=== PATIENT | male | born 1950 | race Caucasian/White ===

== ENCOUNTER 2020-11-20 08:12 | Outpatient (CLI) | payer MEDICARE, OTHER, SELFPAY ==
--- NOTE | 2020-11-20 08:17 | ECG_ITS ---
Measurements Intervals [place] Rate: 57 P: 35 WV: 212 QRS: -47 QRSD: 105 T: 6 QT: 405 QTc: 396 Interpretive Statements SINUS BRADYCARDIA WITH FIRST DEGREE AV BLOCK LEFT ANTERIOR FASCICULAR BLOCK BORDERLINE T WAVE ABNORMALITY- INFERIOR LEADS ABNORMAL ECG Electronically Signed On 11-20-2020 8:50:50 [employer] by Lavelle Torrez D.O.
[2020-11-20 08:51] LABS: Anion Gap 5 mmol/L (8-16); Blood Urea Nitrogen 12 mg/dL (9-20); Calcium 9.3 mg/dL (8.4-10.2); Carbon Dioxide 34 mmol/L (22-30); Chloride 100 mmol/L (98-107); Estimated Glomerular Filt Rate > 60; Glucose 111 mg/dL (75-110); Potassium 4.1 mmol/L (3.4-5.0); Sodium 139 mmol/L (137-145)
== END 2020-11-20 08:13 | disposition home or self-care (01) ==
LOC: ANHSURGERY 08:17
PROVIDERS: Anesthesiology; PCP Emergency Medicine; Visit Provider Urology
DX: Z01.812 Encounter for preprocedural laboratory examination (principal); C61 Malignant neoplasm of prostate; I10 Essential (primary) hypertension; E11.9 Type 2 diabetes mellitus without complications; R00.1 Bradycardia, unspecified; I44.0 Atrioventricular block, first degree; I45.2 Bifascicular block; R94.31 Abnormal electrocardiogram [ECG] [EKG]; Z51.81 Encounter for therapeutic drug level monitoring; Z79.899 Other long term (current) drug therapy
CPT/HCPCS: 36415; 80048; 87086; 93005

== ENCOUNTER 2020-11-23 01:27 | Outpatient (CLI) | payer MEDICARE, OTHER, SELFPAY ==
[2020-11-23 18:47] LABS: SARS-CoV-2 RNA PCR Negative
== END 2020-11-23 01:28 | disposition home or self-care (01) ==
LOC: ANHCOVIDDT 01:28
PROVIDERS: PCP Emergency Medicine; Visit Provider Urology
DX: Z01.812 Encounter for preprocedural laboratory examination (principal); Z20.822 Contact with and (suspected) exposure to COVID-19
CPT/HCPCS: C9803; U0003; U0005

== ENCOUNTER → 2020-11-30 00:44 | Outpatient (CLI) | payer MEDICARE, OTHER, SELFPAY ==
[2020-11-30 20:38] LABS: SARS-CoV-2 RNA PCR Negative
== END ==
PROVIDERS: PCP Emergency Medicine; Visit Provider Urology
DX: Z01.812 Encounter for preprocedural laboratory examination (principal); Z20.822 Contact with and (suspected) exposure to COVID-19
CPT/HCPCS: C9803; U0003; U0005

== ENCOUNTER 2020-12-03 01:30 | Day surgery (SDC) | payer MEDICARE, OTHER, SELFPAY ==
[2020-11-19 09:23] VITALS: BMI 31.6
[2020-11-26 08:20] VITALS: BMI 31.6
--- NOTE | 2020-12-02 11:06 | WPDANESEPPF ---
Anes - Initial Pre Proc Eval Procedure: Operation Date: 12/03/20 13:00 Proposed Procedures p Insertion SpaceOAR Hydrogel System - Monty Greer MD Date/Time: 12/02/20 11:06 Surgeon: Monty Greer MD Pre Op Diagnosis: Prostate Cancer Patient Data Age: 70 Gender: M Height: 1.8 m Weight: 103 kg Allergies Allergy/AdvReac Type Severity Reaction Status Date / Time No Known Allergies Allergy Mild Unverified 11/26/20 08:32 Home Medications Medication Instructions Recorded Confirmed Type aspirin [Aspir-81] 81 mg PO DAILY 11/19/20 11/26/20 History cholecalciferol (vitamin D3) 1,000 unit PO DAILY 11/19/20 11/26/20 History [Vitamin D3] cranberry 500 mg PO DAILY 11/19/20 11/26/20 History loratadine 10 mg PO DAILY 11/19/20 11/26/20 History losartan 50 mg PO QAM 11/19/20 11/26/20 History metformin 500 mg PO QAM 11/19/20 11/26/20 History multivitamin [Multiple Vitamin] 1 tablet PO DAILY 11/19/20 11/26/20 History simvastatin 40 mg PO HS 11/19/20 11/26/20 History Patient hx anesthesia problems: none Family hx anesthesia problems: none PMFSH Past Medical History Medical History (Updated 12/02/20 @ 11:07 by Guillermo Burden MD) HLD (hyperlipidemia) HTN (hypertension) Hyperglycemia Obesity Prostate CA Vitamin D deficiency disease Family History Family History Father Acute myocardial infarction, Onset Age: 83 Hypertension Asthma Sibling Hypertension Other Family history of cardiovascular disease Social History Social History Smoking status: Former smoker Smoking end date: 04/24/88 Additional smoking assessment comments: 2 PACK/WEEK X 15 YEARS Alcohol intake: former Alcohol use details: DRANK SOCIALLY IN PAST Substance use: never Substance use type: does not use Living arrangements: with family Spiritual care concerns: No Anes - Eval Final PreProcedure Day of Procedure 12/02/20 11:06 Patient weight: obese Heart: regular rate and rhythm Lungs: clear to auscultation and normal air movement Airway: Mallampati scale class II Neurological: alert and oriented Last oral intake: >/= 8 hours ASA classification: III Emergent: no Anesthetic plan: proceed Anesthesia type and monitoring: general GIVS and LMA Informed Consent: The patient's anesthetic plan and its attendant risks and benefits were discussed with the patient/family/POA. Questions were solicited and answers provided to the satisfaction of the patient/family/POA.
[2020-12-03 11:12] VITALS: BP 146/91; PULSE 74; RESP 20; TEMP 36.5; O2SAT 98
[2020-12-03] MEDS: LACTATED RINGERS 1,000 ML 30 ML IV CONT (11:54)
[2020-12-03 12:12] LABS: Glucose Point of Care 105 (65-105)
--- NOTE | 2020-12-03 12:54 | WPDHPUPDATE1 ---
History and Physical Update Update Date/Time: 12/03/20 12:54 History and Physical has been reviewed, including an updated exam of the patient. There are NO changes in the patient's condition. Risks, benefits, and alternatives have been discussed and questions answered. Patient agrees to proceed with procedure. Proceed with space oar
[2020-12-03] MEDS: ceFAZolin 2 GM/D5W 50 ML 2 GM/50 ML BAG IVPB (13:00)
--- NOTE | 2020-12-03 13:24 | PM.PROC ---
Procedure Note - Detailed Date of procedure: 12/03/20 Pre-op diagnosis: Prostate Cancer Post-op diagnosis: same Procedure performed: Space Oar Description of procedure: Patient is taken to the operative suite and correctly identified. Once anesthesia was obtained was placed in dorsal lithotomy position prepped draped usual sterile fashion. Transrectal ultrasound was then performed. The space oar compound was then mixed. Spinal needle was then placed in the space between the prostate and the rectum. This was visualized under both transverse and sagittal planes. Cc of saline was injected to make sure the plane was developed appropriately. Aspiration revealed no blood. We then placed the premixed compound onto the spinal needle and injected. This was again visualized in both planes. There appeared to be very good separation of the prostate from the rectum. Patient tolerated procedure well without any complications taken recovery stable condition. Anesthesia: GLMA Surgeon: Monty Greer MD Drains: No Packing: No Pathology: none sent Complications: No immediate complications Condition: stable Disposition: PACU
[2020-12-03 13:31] VITALS: BP 117/82; PULSE 71; RESP 12; O2SAT 93
[2020-12-03 14:01] VITALS: BP 125/80; PULSE 53; RESP 12; O2SAT 95
[2020-12-03 14:20] VITALS: BP 127/81; PULSE 54; RESP 12
== END 2020-12-03 14:30 | disposition home or self-care (01) ==
PROVIDERS: PCP Emergency Medicine; Visit Provider Urology
PROC: (CPT 55874; principal; 2020-12-03 13:00)
DX: C61 Malignant neoplasm of prostate (principal); I10 Essential (primary) hypertension; E78.5 Hyperlipidemia, unspecified; E55.9 Vitamin D deficiency, unspecified; Z79.84 Long term (current) use of oral hypoglycemic drugs; Z79.82 Long term (current) use of aspirin; Z87.891 Personal history of nicotine dependence; E66.9 Obesity, unspecified; Z68.31 Body mass index [BMI] 31.0-31.9, adult
CPT/HCPCS: 55874; 82948; A9270; C1889; J0690; J2704; J3010; J7120

== ENCOUNTER 2020-12-11 07:22 | Outpatient (CLI) | payer MEDICARE, OTHER, SELFPAY ==
--- NOTE | ~2020-12-11 | MR_ITS ---
EXAMINATION: MR pelvis wo con DATE: 12/11/2020 09:14 INDICATION: TECHNIQUE: Magnetic resonance imaging (MRI) of the pelvis was performed without intravenous contrast. [place] sequences of the pelvis included axial and coronal T2-weighted SS FSE, axial, sagittal an d coronal 2D FIESTA, axial and coronal 2D FIESTA FS, axial SSFSE-IR MAINOR, axial dual-echo T1-weighted FSPGR, axial and coronal T1 weighted LAVA, axial T2-weighted 3D cube, axial diffusion-weighted SE wit h apparent diffusion coefficient (ADC) maps. COMPARISON: CT urogram dated 07/15/2012 FINDINGS: Prostatomegaly measuring 5.5 x 3.4 cm maximal transaxial dimensions. There is a region of relatively homogeneous T2 hyperintense signal situated in the space between the rectum and prostate consistent w ith provided history of a hydrogel spacer injection. The collection measures 4.8 cm craniocaudally an d 3.0 x 1.4 cm in maximal transaxial dimensions. This results in at least 1 cm separation between the posterior margin in the anterior margin of the left and median portion of the rectum. The does not e xtend between the right side of the prostate and anterior wall of the rectum which remain in relative ly close apposition of a region measuring approximately 1 cm medial collateral and 2 cm craniocaudal. Mild trabeculation to the bladder wall consistent with likely chronic outlet obstruction. Prominent d iverticulosis along the proximal sigmoid colon without adjacent inflammatory change to suggest divert iculitis. Small fat-containing umbilical hernia and small fat-containing right inguinal hernia. No pa thologically enlarged pelvic or inguinal lymphadenopathy. L5 spondylolysis with bilateral pars intera rticularis defects, severe L5-S1 disc height loss and 10 mm anterolisthesis of L5 on S1. IMPRESSION: 1. 4.8 x 3.0 x 1.4 cm collection of likely injected hydrocele in the space between the enlarged prost ate and the median and left sides of the rectum. The spacer does not extending between the right side of the prostate and right anterior rectum which over a small area remain in relatively close proximi ty. 2. Sigmoid diverticulosis. 3. Small fat-containing umbilical and right inguinal hernias. 4. L5 spondylolysis with grade 2 anterolisthesis on S1 and severe L5-S1 spondylosis. Reviewed, dictated and finalized at location A. LS MANAGER IMPRESSION: 1. 4.8 x 3.0 x 1.4 cm collection of likely injected hydrocele in the space betw een the enlarged prostate and the median and left sides of the rectum. The spac er does not extending between the right side of the prostate and right anterior rectum which over a small area remain in relatively close proximity. 2. Sigmoid diverticulosis. 3. Small fat-containing umbilical and right inguinal hernias. 4. L5 spondylolysis with grade 2 anterolisthesis on S1 and severe L5-S1 spondyl osis.
== END 2020-12-11 07:23 | disposition home or self-care (01) ==
PROVIDERS: PCP Emergency Medicine; Visit Provider Radiology Radiation Oncology
DX: C61 Malignant neoplasm of prostate (principal); K57.30 Diverticulosis of large intestine without perforation or abscess without bleeding; K42.9 Umbilical hernia without obstruction or gangrene; K40.90 Unilateral inguinal hernia, without obstruction or gangrene, not specified as recurrent; M47.817 Spondylosis without myelopathy or radiculopathy, lumbosacral region
CPT/HCPCS: 72195

== ENCOUNTER 2025-07-06 22:57 | Inpatient (IN) | payer MEDICARE, OTHER, SELFPAY ==
--- NOTE | ~2025-07-06 | XR_ITS ---
EXAMINATION: XR chest 1V portable DATE: 07/07/2025 05:44 INDICATION: Increased oxygen requirements TECHNIQUE: frontal view of the chest was obtained. COMPARISON: Chest radiograph dated 03/02/2017 FINDINGS: Unchanged elevation of the right hemidiaphragm which appears new since prior study. Mild opacities at the left lung base which could represent atelectasis or pneumonia. No pleural effusion or pneumothorax. The cardiomediastinal silhouette is normal. Right internal jugular central venous catheter tip at the caudal superior vena cava. IMPRESSION: 1. Unchanged mild opacities at the left lung base which could represent atelectasis or pneumonia. 2. Unchanged elevation of the right hemidiaphragm. Reviewed, dictated and finalized at location A. IMPRESSION: 1. Unchanged mild opacities at the left lung base which could represent atelect asis or pneumonia. 2. Unchanged elevation of the right hemidiaphragm.
--- NOTE | ~2025-07-06 | CT_ITS ---
EXAMINATION: CT chest abdomen pelvis wo con DATE: 07/10/2025 15:41 INDICATION: Bacteremia. TECHNIQUE: Computed tomography (CT) of the chest, abdomen, and pelvis was performed without intravenous contrast. Automated exposure control and iterative reconstruction technique were employed. The dose-length product was 1300.08 mGy-cm. COMPARISON: CT abdomen and pelvis 07/15/2012, CT chest, abdomen, and pelvis 07/06/2025 FINDINGS: CHEST CT: There are small pleural effusions. There is dependent atelectasis bilaterally. There are groundglass opacities in right upper lobe. The heart size is normal. There are coronary artery calcifications. No pericardial effusion. There is mild chronic height loss of multiple thoracic vertebral bodies. There is severe thoracic spondylosis. ABDOMEN/PELVIS CT: The gallbladder is markedly distended and contains a gallstone. There is a hypodense mass in the liver near the gallbladder measuring 4.3 x 1.4 cm. The spleen, pancreas, adrenal glands, and kidneys are normal. There is no urolithiasis. The bladder is decompressed by a Ac catheter. There are brachytherapy seeds in the prostate. There is diverticulosis of the colon without evidence of diverticulitis. There is liquid stool in the colon suggesting diarrhea. The appendix is normal. There are no pathologically enlarged lymph nodes. There is an umbilical hernia containing fat. There is trace pelvic ascites. There are chronic bilateral L5 pars defects. There is 15 mm anterolisthesis of L5 on S1. There is severe lumbar spondylosis. IMPRESSION: 1. New groundglass opacities in right lung upper lobe, consistent with pneumonia. 2. Small pleural effusions. 3. Distended gallbladder with gallstone suspicious for acute cholecystitis. 4. Worsened liver mass near the gallbladder, consistent with abscess. Reviewed, dictated and finalized at location E. IMPRESSION: 1. New groundglass opacities in right lung upper lobe, consistent with pneumoni a. 2. Small pleural effusions. 3. Distended gallbladder with gallstone suspicious for acute cholecystitis. 4. Worsened liver mass near the gallbladder, consistent with abscess.
--- NOTE | ~2025-07-06 | US_ITS ---
EXAMINATION: US venous doppler [facility], 07/10/2025 14:00 CDT HISTORY: Bacteremia COMPARISON: None Technique: Norman-scale and color Doppler images were attempted of the lower saphenofemoral junction, common femoral vein,superficial femoral vein, proximal deep femoral vein, proximal deep femoral vein, popliteal vein and posterior tibial veins. Findings: Deep Venous System:Normal flow, augmentation and compressibility. No echogenic thrombus identified. Superficial Venous SystemNo superficial thrombophlebitis. Soft tissues: Soft tissues are unremarkable. Impression: Negative for DVT. Reviewed, dictated and finalized at location A. Impression: Negative for DVT.
--- NOTE | ~2025-07-06 | US_ITS ---
EXAMINATION: US perc cholecystostomy w imag DATE: 07/11/2025 14:49 INDICATION: Acute cholecystitis TECHNIQUE: The procedure including the risks and benefits was discussed with the patient. Risks discussed included bleeding including hemorrhage and bile peritonitis. Oral and written consent were obtained. The patient was confirmed to be receiving appropriate antibiotic coverage. The skin overlying the liver and gallbladder was prepped and draped in usual sterile fashion. Anesthetic was administered with 1% lidocaine subcutaneously. Conscious sedation was provided by the anesthesiology service. An 8.5 Fr catheter was inserted through liver parenchyma into the gallbladder by trocar technique. The metal stiffener and trocar needle were removed, and the pigtail tip was locked. Bile was aspirated and sent for culture. The catheter was stitched to the skin with suture. There were no immediate complications. FINDINGS: The gallbladder is dilated with wall thickening and stones and sludge, consistent with acute cholecystitis. Ultrasound images demonstrate the catheter within the gallbladder. 170 mL bile was aspirated with 20 mL sent to the lab for Gram stain and cultures. Final images show the formed pigtail catheter tip in the gallbladder. IMPRESSION: 1. Successful ultrasound-guided cholecystostomy tube placement. 2. 20 mL bile was sent for aerobic, anaerobic, and fungal cultures. 3. The catheter will be managed by Dr. Sarabia. A catheter cholangiogram may be performed not less than 48 hours after tube placement if clinically indicated to assess cystic duct patency. If cholecystectomy is not eventually performed and the infectious episode has resolved, the tube may be removed over a guidewire, preferably not less than 3 weeks after placement to allow time for a mature catheter tract to form to prevent bile leakage and peritonitis. Reviewed, dictated and finalized at location A. IMPRESSION: 1. Successful ultrasound-guided cholecystostomy tube placement. 2. 20 mL bile was sent for aerobic, anaerobic, and fungal cultures. 3. The catheter will be managed by Dr. Sarabia. A catheter cholangiogram may be performed not less than 48 hours after tube placement if clinically indicated to assess cystic duct patency. If cholecystectomy is not eventually performed and the infectious episode has resolved, the tube may be removed over a guidewi re, preferably not less than 3 weeks after placement to allow time for a mature catheter tract to form to prevent bile leakage and peritonitis.
--- NOTE | ~2025-07-06 | XR_ITS ---
EXAMINATION: XR chest PICC line, 07/16/2025 16:40 CDT HISTORY: picc placement COMPARISON: No comparisons available. Technique: Single view. Findings: Mild pulmonary venous congestion. No pneumothorax. Mild cardiomegaly. Mediastinal and hilar contours are within normal limits. Bony thorax no acute abnormality. Right PICC line terminates in the SVC. Impression: PICC line placement as above Reviewed, dictated and finalized at location A. Impression: PICC line placement as above
--- NOTE | ~2025-07-06 | XR_ITS ---
EXAMINATION: XR chest 1V portable COMPARISON: No comparisons available. HISTORY: Shortness of Breath FINDINGS: Small basilar infiltrates. Mild pulmonary venous congestion. Elevation right hemidiaphragm. No pneumothorax. Mild cardiomegaly. Mediastinal and hilar contours are within normal limits. Bony thorax no acute abnormality. Miscellaneous: None Impression: Mild CHF. Early basilar pneumonia suspected Reviewed, dictated and finalized at location A. Impression: Mild CHF. Early basilar pneumonia suspected
--- NOTE | ~2025-07-06 | US_ITS ---
EXAMINATION: US right upper quadrant DATE: 07/07/2025 11:05 INDICATION: Jaundice. Abdominal distention and sepsis. TECHNIQUE: Multiple grayscale and Doppler ultrasound images of the abdomen were obtained. COMPARISON: None FINDINGS: The pancreatic head and body are normal in appearance. The pancreatic tail is not visualized. Liver has normal echogenicity and contour, with a smooth surface. No liver lesion identified. No intrahepatic biliary duct dilation suspected. Portal venous flow was seen in the hepatopetal, normal direction and has normal Doppler waveform. The gallbladder is normal in appearance. There is no cholelithiasis. The common bile duct measures 3-4 mm, which is normal. Sonographic Nguyen sign was reported as negative by the biometry teacher.Right kidney measures 12.0 x 5.3 x 5.1 cm with normal contour and echogenicity with no hydronephrosis. IMPRESSION: 1. Normal right upper quadrant ultrasound with no intra or extrahepatic biliary ductal dilation. Reviewed, dictated and finalized at location A.
--- NOTE | ~2025-07-06 | XR_ITS ---
EXAMINATION: XR chest 1V portable COMPARISON: No comparisons available. HISTORY: pneumonia FINDINGS: Small basilar infiltrates. Elevation right hemidiaphragm. No pneumothorax. Heart is normal size. Mediastinal and hilar contours are within normal limits. Bony thorax no acute abnormality. Miscellaneous: Left central line terminates in the SVC. Impression: Bilateral pneumonia. The findings appear progressed compared to the previous study. Reviewed, dictated and finalized at location A. Impression: Bilateral pneumonia. The findings appear progressed compared to the previous [facility].
--- NOTE | ~2025-07-06 | XR_ITS ---
EXAMINATION: XR chest 1V portable DATE: 07/10/2025 05:42 INDICATION: Congestive heart failure. Pneumonia. TECHNIQUE: frontal view of the chest was obtained. COMPARISON: Chest radiograph dated 07/08/2025 FINDINGS: Elevation the right hemidiaphragm. There are opacities at the bilateral lower lung zones. No pneumothorax or definitive pleural effusion. Heart size is normal. Right internal jugular central venous catheter with distal tip at the midsuperior vena cava. IMPRESSION: 1. Unchanged elevation right hemidiaphragm opacity bilateral lower lung zones which could represent atelectasis or pneumonia. Reviewed, dictated and finalized at location A. IMPRESSION: 1. Unchanged elevation right hemidiaphragm opacity bilateral lower lung zones w hich could represent atelectasis or pneumonia.
--- OUTSIDE RECORDS SUMMARY | 2025-07-06 17:30 | XMS_ITS | Encounter Summary ---
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 Role Phone Sourav Olguin MD Primary Care Provider [phone] Reason for Referral * (Routine) - New Request Specialty Diagnoses / Procedures Referred By Contac t Referred To Contact Procedures Critical Care Ernesto Bowen MD [address] [place] [address] Phone: tel: fax: Referral ID Status Reason Start Date Expiration Date V isits Requested Visits Authorized [id number] New Request 07/06/2025 07/06/2026 1 1 * (Routine) - New Request Specialty Diagnoses / Procedures Referred By Contac t Referred To Contact Procedures CENTRAL LINE Ernesto Bowen MD [address] [place] [address] Phone: tel: fax: Referral ID Status Reason Start Date Expiration Date V isits Requested Visits Authorized [id number] New Request 07/06/2025 07/06/2026 1 1 * Imaging (Emergency) - New Request Specialty Diagnoses / Procedures Referred By Contac t Referred To Contact RADIOLOGY Procedures CT ABD+PEL W Efren Gonzalez MD [address] [place] [address] Phone: tel: fax: Referral ID Status Reason Start Date Expiration Date V isits Requested Visits Authorized [id number] New Request 07/06/2025 07/06/2026 1 1 * Imaging (Emergency) - New Request Specialty Diagnoses / Procedures Referred By Contac t Referred To Contact RADIOLOGY Procedures CTA CHEST PE PROTOCOL Efren Cuevas MD [address] [place] [address] Phone: tel: fax: Referral ID Status Reason Start Date Expiration Date V isits Requested Visits Authorized [id number] New Request 07/06/2025 07/06/2026 1 1 Reason for Visit * Reason Comments Generalized Weakness Abdominal Pain Encounter Details Date Type Department Care Team (Late st Contact Info) Description 07/06/2025 5:30 PM CDT - 07/06/2025 11:52 PM CDT Emergency [facility] Emergency Room [id number] [place] [address] Efren Cuevas MD [address] [place] [id number] Ernesto Bowen MD [address] [place] [id number] Generalized Weakness; Abdominal Pain Discharge Disposition: Another Health Care Institution Not Defined Social History Tobacco Use Types Packs/Day Years Used Date Smoking Tobacco: Former Cigarettes Q uit: 1988 Smokeless Tobacco: Never Alcohol Use Standard Drinks/Week Comments Not Currently 0 (1 standard drink = 0.6 oz pur e alcohol) Humiliation, Afraid, Rape, and Kick questionnair e Answer Date Recorded Within the last year, have y ou been afraid of your partner or ex-partner? No 02/10/2023 Within the last year, have y ou been humiliated or emotionally abused in other ways by your partner or ex-partner? No Within the last year, have y ou been kicked, hit, slapped, or otherwise physically hurt by your partner or ex-partner? No 02/10/2023 Within the last year, have y ou been raped or forced to have any kind of sexual activity by your partner or ex-partner? No 02/10/2023 Overall Financial Resource Strain (CARDIA) Answe r Date Recorded How hard is it for you to pa y for the very basics like food, housing, medical care, and heating? Not hard at all 02/10/2023 Hunger Vital Sign Answer Date Recorded Within the past 12 months, y ou worried that your food would run out before you got the money to buy more. Never true 02/11/20 23 Within the past 12 months, t he food you bought just didn't last and you didn't have money to get more. Never true 02/10/2023 PRAPARE - Transportation Answer Date Re corded In the past 12 months, has l ack of transportation kept you from medical appointments or from getting medications? No 01/23 In the past 12 months, has l ack of transportation kept you from meetings, work, or from getting things needed for daily living? No 02/10/2023 Housing Stability Vital Sign Answer Samuel e Recorded In the last 12 months, was t here a time when you were not able to pay the mortgage or rent on time? No 02/10/2023 In the last 12 months, how many places have you lived? 2 02/10/2023 In the last 12 months, was t here a time when you did not have a steady place to sleep or slept in a alf (including now)? No 02/10/2023 Sex and Gender Information Value Date Recorded Sex Assigned at Male 07/06/2025 7:12 PM CDT Legal Sex Male 5:12 PM CDT Gender Identity Male 07/06/2025 7:12 PM CDT Sexual Orientation Straight 07/06/2025 7: 12 PM CDT documented as of this encounter Last Filed Vital Signs Vital Sign Reading Time Taken Comments Blood Pressure 95/63 07/06/2025 11:50 PM CDT Pulse 99 07/06/2025 11:50 PM CDT Temperature 37.3 C (99.1 F) 07/06/2025 11:40 PM CDT Respiratory Rate 25 07/06/2025 11:40 PM CDT Oxygen Saturation 93% 07/06/2025 11:40 PM CDT Inhaled Oxygen Concentration - - Weight 106.6 kg (235 lb) 07/06/2025 5:31 PM CDT Height 180.3 cm (5' 11) 07/06/2025 5:31 PM CDT Body Mass Index 32.78 07/06/2025 5:31 PM CDT documented in this encounter Functional Status * Are you deaf or do you have serious difficulty hearing Answer Date of Assessment Author Status No 02/10/2023 3:40 PM CDT Chana Sylvester RN Active * Are you blind or do you have serious difficulty seeing, even when wearing glasses? Answer Date of Assessment Author Status No 02/10/2023 3:40 PM CDT Chana Sylvester RN Active * Do you have serious difficulty walking or climbing stairs? Answer Date of Assessment Author Status No 02/10/2023 3:40 PM CDT Chana Sylvester RN Active * Do you have difficulty dressing or bathing? Answer Date of Assessment Author Status No 02/10/2023 3:40 PM CDT Chana Sylvester RN Active * Because of a physical, mental, or emotional condition, do you have difficulty doing errands alone such as visiting a doctor's office or shopping? Answer Date of Assessment Author Status No 02/10/2023 3:40 PM CDT Chana Sylvester RN Active * Calculated C-SSRS Risk Score (Lifetime/Recent) Answer Date of Assessment Author Status No Risk Indicated 07/06/2025 5:37 PM CDT Shameka Diggs RN Active * Sawyer Suicide Severity Rating Scale (Screener/Recent Self-Report) Question Answer Date of Assessment Author Status 1. Wish to be (Past 1 Month) No 07/06/2025 5:37 PM CDT Shameka Diggs RN Activ e 2. Non-Specific Active Suicidal Thoughts (Past 1 Month) No 07/06/2025 5:37 PM CDT Shameka Diggs RN Activ e 6. Suicidal Behavior (Lifetime) No 07/06/2025 5:37 PM CDT Shameka Diggs RN Activ e documented as of this encounter Mental Status * Because of a physical, mental, or emotional condition, do you have serious difficulty concentrating, remembering, or making decisions? Answer Entry Date Author Status No 02/10/2023 3:40 PM CDT Chana Sylvester RN Active documented in this encounter Medications at Time of Discharge aspirin EC (ECOTRIN) 81 MG tablet Take 1 tablet (81 mg total) by mouth daily. cranberry 500 MG Cap Take 1 capsule by mouth daily. fluticasone propionate (FLONASE) 50 MCG/ACT nasal spray 1 spray by Each Nostril route daily. 06/15/2022 hypromellose (SYSTANE) 0.3 % ophthalmic gel Place 1 drop into both eyes 3 (three) times daily as needed for Dry eyes. Krill Oil 500 MG Cap losartan (COZAAR) 100 MG tablet Take 1 tablet (100 mg total) by mouth daily. 01/25/2023 metFORMIN (GLUCOPHAGE) 500 MG tablet Take 1 tablet (500 mg total) by mouth every morning. 02/03/2023 Multiple Vitamins-Minerals (CENTRUM SILVER) Tab Take 1 tablet by mouth daily. sildenafil (VIAGRA) 100 MG tablet Take 0.5 tablets (50 mg total) by mouth as needed. 02/15/2024 simvastatin (ZOCOR) 40 MG tablet Take 1 tablet (40 mg total) by mouth nightly at bedtime. 01/03/2023 Vitamin D3 (CHOLECALCIFEROL) 50 mcg tablet Take 1 tablet (50 mcg total) by mouth daily. documented as of this encounter ED Notes * Anshu Unger RN - 07/06/2025 11:51 PM CDTSummary: Transfer Patient was transferred to [facility] ICU room 3 via [facility] 2. * Anshu Unger RN - 07/06/2025 11:12 PM CDTSummary: Central line Per EDP central line is good to use * Anshu Unger RN - 07/06/2025 11:10 PM CDTSummary: [place] Phone call Spoke to [place] ICU nurse [facility] and advised patient will now be flown * Anshu Unger RN - 07/06/2025 10:58 PM CDTSummary: [facility] called and advised that they will not have anything available in the near future. * Anshu Unger RN - 07/06/2025 10:57 PM CDTSummary: [facility] advised that they will not have anything until noon tomorrow. * Anshu Unger RN - 07/06/2025 9:30 PM CDTSummary: Consent for central line Consent for central line has been signed by patient, nurse, and EDP. * Ernesto Bowen MD - 07/06/2025 8:13 PM CDTAssociated Order(s): Central Line; Critical Care Emergency Department Assumed Care Note Patient signed out to me by Dr. Cuevas @ 1900 shift change. Briefly, Van Carlton is a 74-year-old male is being evaluated for generalized weakness, fever, sepsis Vitals: 07/06/25 2337 BP: 93/64 Pulse: 100 Resp: Temp: SpO2: Thus far, studies reveal: leukopenia, lactic acidosis Pending studies include: CXR, CT imaging Plan from sign out is: admission or transfer after lab tests Progress notes: patient now hypotensive, will order a third liter LR and if still hypotensive, willstart levophed Results for orders placed or performed during the hospital encounter of 07/06/25 ECG [address] 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 Assistant: : [id number] Requested By: EFREN CUEVAS Order Number: [id number] Reading MD: Measurements Intervals [place] Rate: 123 P: 33 AK: 171 QRS: -57 QRSD: 114 T: 59 QT: 414 QTc: 593 Interpretive Statements SINUS TACHYCARDIA PATTERN CONSISTENT WITH PULMONARY DISEASE INCOMPLETE RIGHT BUNDLE BRANCH BLOCK [90+ ms QRS DURATION, TERMINAL R IN V1/V2, 40+ ms S IN I/aVL/V4/V5/V6] LEFT ANTERIOR FASCICULAR BLOCK [QRS AXIS <= -45, QR IN I, RS IN II] MODERATE ST DEPRESSION [0.05+ mV ST DEPRESSION] Compared to ECG 02/14/2024 13:14:45 Incomplete right bundle-branch block now present ST (T wave) deviation now present Sinus rhythm no longer present Labs Reviewed CBC W/DIFF AUTOMATED - Abnormal; Notable for the following components: Result Value WBC 1.21 (*) RBC 4.35 (*) HCT 40.4 (*) MCH 32.4 (*) MCHC 34.9 (*) PLT 111 (*) MPV 9.4 (*) SEG NEUTROPHILS 90 (*) LYMPHOCYTES 7 (*) MONOCYTES 1 (*) ABS. NEUTROPHILS 1.11 (*) ABS. LYMPHOCYTES 0.08 (*) All other components within normal limits COMPREHENSIVE METABOLIC PANEL - Abnormal; Notable for the following components: GLUCOSE 132 (*) POTASSIUM S/P/B 3.2 (*) CHLORIDE S/P/B 98 (*) BILIRUBIN TOTAL S/P/B 2.2 (*) AST 49 (*) GFR ESTIMATE 57 (*) All other components within normal limits PRO-BRAIN NATRIURETIC PEPTIDE - Abnormal; Notable for the following components: PRO-B TYPE NATRIURETIC PEPTIDE 465 (*) All other components within normal limits LACTIC ACID - Abnormal; Notable for the following components: LACTIC ACID VENOUS 4.9 (*) All other components within normal limits URINALYSIS, AUTO, COMPLETE - Abnormal; Notable for the following components: PROTEIN RANDOM (U) 1+ (*) KETONES MG/DL (U) TRACE (*) BLOOD (U) 1+ (*) All other components within normal limits BLOOD GAS, VENOUS - Abnormal; Notable for the following components: PH VENOUS 7.48 (*) TOTAL CO2 VENOUS 26.3 (*) All other components within normal limits BLOOD GAS, ARTERIAL LAB - Abnormal; Notable for the following components: PH ARTERIAL 7.52 (*) PCO2 28.0 (*) PO2 60.0 (*) O2 SATURATION 93 (*) All other components within normal limits MAGNESIUM - Abnormal; Notable for the following components: MAGNESIUM 1.7 (*) All other components within normal limits LACTIC ACID W REFLEX (SEPSIS) - Abnormal; Notable for the following components: LACTIC ACID VENOUS 5.7 (*) All other components within normal limits LACTIC ACID W REFLEX (SEPSIS) - Abnormal; Notable for the following components: LACTIC ACID VENOUS 3.5 (*) All other components within normal limits CK (CPK) TROPONIN, QUANT LIPASE BETA-HYDROXYBUTYRATE LACTIC ACID W REFLEX (SEPSIS) CORONAVIRUS (COVID 19) INFLUENZA A & B RESP SYNCYTIAL VIRUS STREP A RAPID CULTURE, BACTERIA, BLOOD CULTURE, BACTERIA, BLOOD URINE BACTERIA CULTURE XR CHEST PORTABLE Final Result by User, [id number] (07/06 2307) [facility] [address] [address] [facility] [place] [address] EXAMINATION: XR CHEST PORTABLE, 07/06/2025 11:02 PM TECHNIQUE: Upright AP portable radiograph of the chest HISTORY: Central line placement COMPARISON: Chest radiograph 07/06/2025 7:18 PM FINDINGS: Multiple leads overlying the chest. Right internal jugular catheter with tip in the superior vena cava. Heart size is normal. Tortuosity and arteriosclerotic calcification of the thoracic aorta. Pulmonary vascular pattern appears unremarkable. Reticular opacities at the right lung base that may be seen with atelectasis or pneumonia. No pleural effusion. Moderate elevation the right hemidiaphragm. No pneumothorax. IMPRESSION: Reticular opacities at the right lung base that may be seen with atelectasis or pneumonia. Referred By: Interpreted By: Romero Lopez MD, 07/06/2025 11:01 PM CTA CHEST PE PROTOCOL Final Result by User, [id number] (07/06 2038) [facility] [address] [place] [address] PROCEDURE: CT ABD+PEL W CON, CTA CHEST PE PROTOCOL. HISTORY: Evaluate for pulmonary embolism. Hypoxia. Fever. TECHNIQUE: Contrast enhanced helical CT pulmonary angiography was then performed. Routine transaxial and post-processed (sagittal and coronal MPR) reformations of the acquired data sets were obtained (Isovue-370, 100mL). Standard 3-D (MIP) reformations of the acquired data sets were also obtained. Helical CT of the abdomen and pelvis was performed using non-ionic intravenous contrast. Ingested oral contrast partially opacifies the bowel. . A dose lowering technique was used for this procedure, which may include, but is not limited to, dose reduction technique, automated exposure control, the use of iterative reconstruction, and ALARA (As Low As Reasonably Achievable) / Image Gently techniques. COMPARISON: AP chest, PULMONARY CTA FINDINGS: This is a suboptimal quality helical CT pulmonary angiogram. There is no large central acute pulmonary embolism OTHER FINDINGS: Support Devices: None. Heart/Pericardium/Great Vessels: Cardiac size is mildly enlarged There is extensive calcific coronary artery atherosclerosis. There is no pericardial effusion. There is mild thoracic aortic and branch vessel atherosclerosis, portions calcific. The main pulmonary artery is dilated measuring up to 3.8 cm, which can be seen pulmonary hypertension The mid ascending thoracic aorta measures up to 4.1 cm. Pleural Spaces: The pleural spaces are clear. Mediastinum/Gemma: There is no mediastinal or hilar lymph node enlargement. Small hiatal hernia. Neck Base/Chest Wall/Diaphragm: There is no supraclavicular or axillary lymph node enlargement. Multiple degenerative change is present in the spine. No aggressive osseous lesions identified. Lungs/Central Airways: The trachea and central airways are clear and normal in caliber. There is right basilar consolidative opacities. No suspicious pulmonary nodules identified. FINDINGS CT ABDOMEN/PELVIS: Liver: The liver is normal in size. There is ill-defined 3.2 cm segment 4 left hepatic lobe hypodense lesion (series 503, image 43.. There is diffuse hepatic steatosis. Biliary tree: There is cholelithiasis with associated gallbladder distention.. There is no biliary ductal dilatation. Spleen: The spleen is normal in size. Pancreas: The pancreas is normal in size and enhances homogenously. Adrenal glands: The adrenal glands are normal in size and shape. Kidneys: There are bilateral symmetric nephrograms without hydronephrosis. Lymph nodes: Abdomen: Multiple enlarged mesenteric lymph nodes measuring up to 13 mm. Pelvis: There is no pelvic adenopathy. Vasculature: There is no abdominal aortic aneurysm. Atherosclerotic calcification is seen. Peritoneum/mesentery/omentum: There is no free fluid or free air. GI tract: There is no bowel obstruction. Scattered colonic diverticulosis without evidence of acute inflammation. The appendix is normal. Moderate fecal burden within the rectosigmoid colon. Pelvic urogenital structures:The bladder is grossly unremarkable. The prostate is mildly enlarged measuring up to 5.0 cm in the transverse dimension. Brachytherapy seeds are present within the prostate. Body wall: There are degenerative changes in the spine. 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 Bilateral hip degenerative changes. Small fat-containing paraumbilical hernia. Moreno: (S/I) = series number / image number IMPRESSION: 1. Suboptimal quality helical CT pulmonary angiogram. Within this limitation, no large central acute pulmonary embolism is identified. 2. CT findings suggestive of right lower lobe pneumonia. A follow-up chest CT in 8-12 weeks is recommended to ensure complete resolution. 3. Cholelithiasis with associated gallbladder distention; acute cholecystitis most. A follow-up gallbladder ultrasound could be considered if there is clinical concern for acute cholecystitis. 4. Nonspecific ill-defined hypodense 3.2 cm segment 4 left hepatic lobe lesion. This can be further assessed on follow-up ultrasound of the liver and gallbladder. 5. Nonspecific mesenteric lymphadenopathy measuring up to 13 mm short axis. A short interval follow-up CT in 3 months is recommended for evaluation. 6. Scattered colonic diverticulosis without evidence of acute inflammation. 7. There is fusiform dilation the mid ascending thoracic aorta measuring up to 4.1 cm. Continued attention on follow-up is recommended to ensure stability. Ordered By: EFREN CUEVAS Interpreted By: Jennifer Al MD, 07/06/2025 8:[address] ABD+PEL W CON Final Result by User, [id number] (07/06 2038) [facility] [address] [place] [address] PROCEDURE: CT ABD+PEL W CON, CTA CHEST PE PROTOCOL. HISTORY: Evaluate for pulmonary embolism. Hypoxia. Fever. TECHNIQUE: Contrast enhanced helical CT pulmonary angiography was then performed. Routine transaxial and post-processed (sagittal and coronal MPR) reformations of the acquired data sets were obtained (Isovue-370, 100mL). Standard 3-D (MIP) reformations of the acquired data sets were also obtained. Helical CT of the abdomen and pelvis was performed using non-ionic intravenous contrast. Ingested oral contrast partially opacifies the bowel. . A dose lowering technique was used for this procedure, which may include, but is not limited to, dose reduction technique, automated exposure control, the use of iterative reconstruction, and ALARA (As Low As Reasonably Achievable) / Image Gently techniques. COMPARISON: AP chest, 9 12,025 PULMONARY CTA FINDINGS: This is a suboptimal quality helical CT pulmonary angiogram. There is no large central acute pulmonary embolism OTHER FINDINGS: Support Devices: None. Heart/Pericardium/Great Vessels: Cardiac size is mildly enlarged There is extensive calcific coronary artery atherosclerosis. There is no pericardial effusion. There is mild thoracic aortic and branch vessel atherosclerosis, portions calcific. The main pulmonary artery is dilated measuring up to 3.8 cm, which can be seen pulmonary hypertension The mid ascending thoracic aorta measures up to 4.1 cm. Pleural Spaces: The pleural spaces are clear. Mediastinum/Gemma: There is no mediastinal or hilar lymph node enlargement. Small hiatal hernia. Neck Base/Chest Wall/Diaphragm: There is no supraclavicular or axillary lymph node enlargement. Multiple degenerative change is present in the spine. No aggressive osseous lesions identified. Lungs/Central Airways: The trachea and central airways are clear and normal in caliber. There is right basilar consolidative opacities. No suspicious pulmonary nodules identified. FINDINGS CT ABDOMEN/PELVIS: Liver: The liver is normal in size. There is ill-defined 3.2 cm segment 4 left hepatic lobe hypodense lesion (series 503, image 43.. There is diffuse hepatic steatosis. Biliary tree: There is cholelithiasis with associated gallbladder distention.. There is no biliary ductal dilatation. Spleen: The spleen is normal in size. Pancreas: The pancreas is normal in size and enhances homogenously. Adrenal glands: The adrenal glands are normal in size and shape. Kidneys: There are bilateral symmetric nephrograms without hydronephrosis. Lymph nodes: Abdomen: Multiple enlarged mesenteric lymph nodes measuring up to 13 mm. Pelvis: There is no pelvic adenopathy. Vasculature: There is no abdominal aortic aneurysm. Atherosclerotic calcification is seen. Peritoneum/mesentery/omentum: There is no free fluid or free air. GI tract: There is no bowel obstruction. Scattered colonic diverticulosis without evidence of acute inflammation. The appendix is normal. Moderate fecal burden within the rectosigmoid colon. Pelvic urogenital structures:The bladder is grossly unremarkable. The prostate is mildly enlarged measuring up to 5.0 cm in the transverse dimension. Brachytherapy seeds are present within the prostate. Body wall: There are degenerative changes in the spine. 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 Bilateral hip degenerative changes. Small fat-containing paraumbilical hernia. Moreno: (S/I) = series number / image number IMPRESSION: 1. Suboptimal quality helical CT pulmonary angiogram. Within this limitation, no large central acute pulmonary embolism is identified. 2. CT findings suggestive of right lower lobe pneumonia. A follow-up chest CT in 8-12 weeks is recommended to ensure complete resolution. 3. Cholelithiasis with associated gallbladder distention; acute cholecystitis most. A follow-up gallbladder ultrasound could be considered if there is clinical concern for acute cholecystitis. 4. Nonspecific ill-defined hypodense 3.2 cm segment 4 left hepatic lobe lesion. This can be further assessed on follow-up ultrasound of the liver and gallbladder. 5. Nonspecific mesenteric lymphadenopathy measuring up to 13 mm short axis. A short interval follow-up CT in 3 months is recommended for evaluation. 6. Scattered colonic diverticulosis without evidence of acute inflammation. 7. There is fusiform dilation the mid ascending thoracic aorta measuring up to 4.1 cm. Continued attention on follow-up is recommended to ensure stability. Ordered By: EFREN CUEVAS Interpreted By: Jennifer Al MD, 07/06/2025 8:18 PM XR CHEST PORTABLE Final Result by User, [id number] (07/06 2005) [facility] [address] [place] [address] PROCEDURE: XR CHEST PORTABLE. 07/06/2025 7:18 PM. TECHNIQUE: A single view of the chest (AP or PA) was performed. HISTORY: Fever. COMPARISON: None. FINDINGS: Support Devices: None. Cardiac Silhouette/Mediastinum/Gemma: The cardiac, mediastinal, and hilar contours are unchanged in appearance. Lungs/Pleural Spaces: Patchy airspace opacities. No focal consolidation. The pleural spaces are clear. Chest Wall/Diaphragm/Upper Abdomen: Multilevel degenerative changes of lower cervical and thoracic spine mild lateral shoulder degenerative changes. The remaining visualized thoracic musculoskeletal structures and the upper abdomen are within normal limits patient's age.. IMPRESSION: 1. Bilateral patchy airspace opacities, which may represent areas of atelectasis or multifocal pneumonia in the appropriate clinical. Continued attention on follow-up is recommended. 2. No pneumothorax. Ordered By: EFREN CUEVAS Interpreted By: Jennifer Al MD, 07/06/2025 8:00 PM Central Line Date/Time: 07/06/2025 10:20 PM Performed by: Ernesto Bowen MD Authorized by: Ernesto Bowen MD Consent: Consent obtained: Written Consent given by: Patient Risks, benefits, and alternatives were discussed: yes Risks discussed: Incorrect placement, pneumothorax, infection and bleeding Alternatives discussed: No treatment Pre-procedure details: Indication(s): central venous access Sterile barrier technique: All elements of maximal sterile technique followed Skin preparation: Chlorhexidine Procedure details: Location: R internal jugular Patient position: Trendelenburg Procedural supplies: Triple lumen Ultrasound guidance: yes Ultrasound guidance timing: real time Sterile ultrasound techniques: Sterile gel and sterile probe covers were used Number of attempts: 1 Successful placement: yes Post-procedure details: Post-procedure: Dressing applied, line sutured and Guidewire Removed Assessment: Blood return through all ports, no pneumothorax on x-ray and placement verified by x-ray Procedure completion: Tolerated well, no immediate complications Critical Care Performed by: Ernesto Bowen MD Authorized by: Ernesto Bowen MD Critical care provider statement: Critical care time (minutes): 40 Critical care time was exclusive of: Separately billable procedures and treating other patients Critical care was necessary to treat or prevent imminent or life-threatening deterioration of the following conditions: Circulatory failure, respiratory failure and sepsis Critical care was time spent personally by me on the following activities: Development of treatmentplan with patient or surrogate, discussions with consultants, evaluation of patient's response to treatment, examination of patient, obtaining history from patient or surrogate, ordering and performing treatments and interventions, ordering and review of laboratory studies, ordering and review of radiographic studies, re-evaluation of patient's condition and vascular access procedures Care discussed with: accepting provider at another facility Medical Decision Making Amount and/or Complexity of Data Reviewed Labs: ordered. Radiology: ordered. ECG/medicine tests: ordered. ED Course as of 07/06/252337Jul 06, [id number] Discussed case with Dr. Castro at [facility] who accepts patient for transfer. [RS] [address] does not have beds. Discussed with [facility] transfer center - patient has been accepted byDr. Coleman, ICU at [facility] [RS] [address] Ruiz called, they do have a bed available and patient would prefer to go there so will send to [facility]. [RS] ED Course User Index [RS] Rehab M MD Andrés Medications vancomycin pharmacy to dose placeholder (has no administration in time range) norepinephrine (LEVOPHED) 4 mg in NS 250 mL infusion (3 mcg/min Intravenous Rate/Dose Change 07/06/252336) lactated ringers bolus infusion 1,000 mL (0 mLs Intravenous Infusion Stop Time 07/06/251828) ceFEPIme (MAXIPIME) 2 g in sodium chloride 0.9 % 100 mL IVPB (0 g Intravenous Infusion Stop Time 07/06/252048) lactated ringers bolus infusion 1,000 mL (0 mLs Intravenous Infusion Stop Time 07/06/251951) potassium chloride CR (KLOR-CON M) tablet 40 mEq (40 mEq Oral Given 07/06/251853) vancomycin (VANCOCIN) 1,500 mg in sodium chloride 0.9 % 500 mL IVPB (0 mg Intravenous Infusion StopTime 07/06/252120) acetaminophen (TYLENOL) tablet 1,000 mg (1,000 mg Oral Given 07/06/251915) lactated ringers bolus infusion 1,000 mL (0 mLs Intravenous Infusion Stop Time 07/06/252019) iopamidol (ISOVUE-370) 76 % injection 100 mL (100 mLs Intravenous Given 07/06/252008) magnesium sulfate IVPB 2 g (0 g Intravenous Infusion Stop Time 07/06/252247) hydrocortisone sodium succinate (Solu-CORTEF) injection 100 mg (100 mg Intravenous Given 07/06/252148) azithromycin (ZITHROMAX) 500 mg in sodium chloride 0.9 % 250 mL IVPB (0 mg Intravenous Infusion Stop Time 07/06/252249) New Prescriptions No medications on file Clinical impression: SNOMED CT(R) 1. Septic shock ([facility]) SEPTIC SHOCK 2. Sepsis, due to unspecified organism, unspecified whether acute organ dysfunction present ([facility]) SEPSIS 3. Pneumonia due to infectious organism, unspecified laterality, unspecified part of lung PNEUMONIA 4. Acute hypoxic respiratory failure ([facility]) ACUTE RESPIRATORY FAILURE Disposition: Transfer to Another Facility REHAB Ophelia BOWEN MD 07/06/2025 Rehab Ophelia Bowen MD 07/06/252337 * Shameka Diggs RN - 07/06/2025 7:04 PM CDT Pt BIBEMS with c/o of generalized weakness, and abdominal pain that started yesterday, and has beengetting increasingly worse. Pt stated that he just returned home from [place] today. Stated that today he was too weak to get himself out of bed, pt febrile of 100.2 on arrival Denies any chest pain.Alert and oriented x 4. documented in this encounter Plan of Treatment Upcoming Encounters Date Type Department Care Team (Late st Contact Info) Description 07/11/2025 10:45 AM CDT Office Visit [facility] [address] [place] [id number] Samuel Calderon MD [facility]. [facility] [address] [place] [address] (work) Pending Results Name Type Priority Associated Diagnoses Date /Time BLOOD CULTURE #1 Microbiology STAT 2024 6:21 PM CDT BLOOD CULTURE #2 Microbiology STAT 2024 6:22 PM CDT ECG 12 lead EKG-NonRad STAT 07/06/2025 6: 32 PM CDT URINE BACTERIA CULTURE Microbiology STAT 07/06/2025 8:15 PM CDT Scheduled Orders Name Type Priority Associated Diagnoses Orde r Schedule BLOOD CULTURE #1 Microbiology Routine STAT f or 1 Occurrences starting 07/06/2025 until 07/06/2025 BLOOD CULTURE #2 Microbiology Routine STAT f or 1 Occurrences starting 07/06/2025 until 07/06/2025 URINE BACTERIA CULTURE Microbiology Routine STAT for 1 Occur rences starting 07/06/2025 until 07/06/2025 documented as of this encounter Procedures Procedure Name Priority Date/Time Associated Diagnosis Comments XR CHEST PORTABLE STAT 07/06/2025 10:33 PM CDT LACTIC ACID W REFLEX (SEPSIS) TIMED 07/06/2025 10:29 PM CDT CENTRAL LINE Routine 07/06/2025 10:20 PM CDT URINALYSIS, AUTO, COMPLETE STAT 07/06/2025 8:15 PM CDT CRITICAL CARE Routine 07/06/2025 8:13 PM CDT CTA CHEST PE PROTOCOL STAT 07/06/2025 8:[address] ABD+PEL W CON STAT 07/06/2025 8:08 PM CDT LACTIC ACID W REFLEX (SEPSIS) STAT 07/06/2025 8:05 PM CDT XR CHEST PORTABLE STAT 07/06/2025 7:1 8 PM CDT CORONAVIRUS (COVID 19) STAT 07/06/2025 6:54 PM CDT INFLUENZA A & B STAT 07/06/2025 6:54 PM CDT STREP A RAPID STAT 07/06/2025 6:54 PM CDT RESP SYNCYTIAL VIRUS STAT 07/06/2025 6:54 PM CDT BLOOD GAS, ARTERIAL LAB STAT 07/06/2025 6:40 PM CDT ECG 12-LEAD STAT 07/06/2025 6:32 PM CDT Procedure Note - 07/06/2025 6:32 PM CDTThis note is in progress. [facility] Test Date: 2025-07-06 Pat Name: VAN CARLTON Department: 85 Room: EXAM [facility] Gender: Male Outpatient Physical Therapist Assistant: : [id number] Requested By: EFREN CUEVAS Order Number: [id number] Reading MD: Measurements Intervals [place] Rate: 123 P: 33 AK: 171 QRS: -57 QRSD: 114 T: 59 QT: 414 QTc: 593 Interpretive Statements SINUS TACHYCARDIA PATTERN CONSISTENT WITH PULMONARY DISEASE INCOMPLETE RIGHT BUNDLE BRANCH BLOCK [90+ ms QRS DURATION, TERMINAL RIN V1/V2, 40+ ms S IN I/aVL/V4/V5/V6] LEFT ANTERIOR FASCICULAR BLOCK [QRS AXIS <= -45, QR IN I, RS IN II] MODERATE ST DEPRESSION [0.05+ mV ST DEPRESSION] Compared to ECG 02/14/2024 13:14:45 Incomplete right bundle-branch block now present ST (T wave) deviation now present Sinus rhythm no longer present BLOOD GAS, VENOUS STAT 07/06/2025 6:2 7 PM CDT BETA-HYDROXYBUTYRATE STAT 07/06/2025 5:31 PM CDT PRO-BRAIN NATRIURETIC PEPTIDE STAT 07/06/2025 5:31 PM CDT COMPREHENSIVE METABOLIC PANEL STAT 07/06/2025 5:31 PM CDT LACTIC ACID STAT 07/06/2025 5:31 PM CDT CBC W/DIFF AUTOMATED STAT 07/06/2025 5:31 PM CDT TROPONIN, QUANT STAT 07/06/2025 5:31 PM CDT MAGNESIUM Routine 07/06/2025 5:31 PM CDT LIPASE STAT 07/06/2025 5:31 PM CDT CK (CPK) STAT 07/06/2025 5:31 PM CDT documented in this encounter Results * XR CHEST PORTABLE (07/06/2025 10:33 PM CDT) Anatomical Region Laterality Modality Chest Radiographic Herlinda ging 07/06/2025 11:0 1 PM CDT Impressions 07/06/2025 11:02 PM CDT IMPRESSION: Reticular opacities at the right lung base that may be seen with atelectasis or pneumonia. Referred By: Interpreted By: Romero Lopez MD, 07/06/2025 11:01 PM Narrative 07/06/2025 11:02 PM CDT [place] [id number] [facility] [place] [address] EXAMINATION: XR CHEST PORTABLE, 07/06/2025 11:02 PM TECHNIQUE: Upright AP portable radiograph of the chest HISTORY: Central line placement COMPARISON: Chest radiograph 07/06/2025 7:18 PM FINDINGS: Multiple leads overlying the chest. Right internal jugular catheter with tip in the superior vena cava. Heart size is normal. Tortuosity and arteriosclerotic calcification of the thoracic aorta. Pulmonary vascular pattern appears unremarkable. Reticular opacities at the right lung base that may be seen with atelectasis or pneumonia. No pleural effusion. Moderate elevation the right hemidiaphragm. No pneumothorax. Procedure Note Romero Lopez MD - 07/06/2025 [facility] [address] [place] [address] EXAMINATION: XR CHEST PORTABLE, 07/06/2025 11:02 PM TECHNIQUE: Upright AP portable radiograph of the chest HISTORY: Central line placement COMPARISON: Chest radiograph 07/06/2025 7:18 PM FINDINGS: Multiple leads overlying the chest. Right internal jugularcatheter with tip in the superior vena cava. Heart size is normal.Tortuosity and arteriosclerotic calcification of the thoracic aorta.Pulmonary vascular pattern appears unremarkable. Reticular opacities atthe right lung base that may be seen with atelectasis or pneumonia. Nopleural effusion. Moderate elevation the right hemidiaphragm. Nopneumothorax. IMPRESSION: Reticular opacities at the right lung base that may be seen withatelectasis or pneumonia. Referred By: Interpreted By: Romero Lopez MD, 07/06/2025 11:01 PM Ernesto Bowen MD GENERAL IMAGING Final Result * (ABNORMAL) LACTIC ACID W REFLEX (SEPSIS) (07/06/2025 10:29 PM CDT) LACTIC ACID VENOUS 3.5(HH) 0.4 - 2.0 MMOL/L 07/06/2025 10:58 PM CDT [facility] Comment: Critical Result(s) Called at: 22:56:52 on 07/06/2025 by: GAIL MALLORY to and read back by: ANSHU MEJÍA IN ED 07/06/2025 10:2 9 PM CDT us Ernesto Bowen MD LABORATORY Final Result [facility] [address] [place] [address], [place] [phone] * Central Line (07/06/2025 10:20 PM CDT) Narrative Ernesto Bowen MD - 07/06/2025 10:20 PM CDT Ernesto Bowen MD 07/06/2025 11:38 PM Central Line Date/Time: 07/06/2025 10:20 PM Performed by: Ernesto Bowen MD Authorized by: Ernesto Bowne MD Consent: Consent obtained: Written Consent given by: Patient Risks, benefits, and alternatives were discussed: yes Risks discussed: Incorrect placement, pneumothorax, infection and bleeding Alternatives discussed: No treatment Pre-procedure details: Indication(s): central venous access Sterile barrier technique: All elements of maximal sterile technique followed Skin preparation: Chlorhexidine Procedure details: Location: R internal jugular Patient position: Trendelenburg Procedural supplies: Triple lumen Ultrasound guidance: yes Ultrasound guidance timing: real time Sterile ultrasound techniques: Sterile gel and sterile probe covers were used Number of attempts: 1 Successful placement: yes Post-procedure details: Post-procedure: Dressing applied, line sutured and Guidewire Removed Assessment: Blood return through all ports, no pneumothorax on x-ray and placement verified by x-ray Procedure completion: Tolerated well, no immediate complications Ernesto Bowen MD PROCEDURE/MINOR SURGICAL ORDE RABLES Final Result * (ABNORMAL) Urinalysis, Auto, Complete (07/06/2025 8:15 PM CDT) COLOR (U) DARK YELLOW 07/06/2025 8:45 PM CDT [facility] TRANSPARENCY HAZY 07/06/2025 8:45 PM CDT [facility] SPECIFIC GRAVITY (U) 1.010 1.000 - 1.030 07/06/2025 8:45 PM CDT [facility] U PH 6.0 5.0 - 9.0 07/06/2025 8:45 PM CDT [facility] LEUKOCYTES (U) NEGATIVE NEGATIVE 07/06/2025 8:45 PM CDT [facility] NITRITES NEGATIVE NEGATIVE 07/06/2025 8:45 PM CDT [facility] PROTEIN RANDOM (U) 1+(A) NEGATIVE 07/06/2025 8:45 PM CDT [facility] GLUCOSE (U) NEGATIVE NEGATIVE 07/06/2025 8:45 PM CDT [facility] KETONES MG/DL (U) TRACE(A) NEGATIVE 07/06/2025 8:45 PM CDT [facility] BILIRUBIN (U) NEGATIVE NEGATIVE 07/06/2025 8:45 PM CDT [facility] BLOOD (U) 1+(A) NEGATIVE 07/06/2025 8:45 PM CDT [facility] WBC/HPF 0-5 0 - 5 /HPF 07/06/2025 8:45 PM CDT [facility] RBC/HPF 5-10 0 - 5 /HPF 07/06/2025 8:45 PM CDT [facility] EPI/HPF RARE /HPF 07/06/2025 8:45 PM CDT [facility] BACTERIA (U) MODERATE /HPF 07/06/2025 8:45 PM CDT [facility] URINE SPECIMEN OBTAINED BY CLEAN CATCH PROCEDURE / Unknown 07/06/2025 8:15 PM CDT Efren Cuevas MD URINE ORDERABLES Final Result [facility] [address] [place] [address], * Critical Care (07/06/2025 8:13 PM CDT) Narrative Ernesto Bowen MD - 07/06/2025 8:13 PM CDT Ernesto Bowen MD 07/06/2025 11:38 PM Critical Care Performed by: Ernesto Bowen MD Authorized by: Ernesto Bowen MD Critical care provider statement: Critical care time (minutes): 40 Critical care time was exclusive of: Separately billable procedures and treating other patients Critical care was necessary to treat or prevent imminent or life-threatening deterioration of the following conditions: Circulatory failure, respiratory failure and sepsis Critical care was time spent personally by me on the following activities: Development of treatment plan with patient or surrogate, discussions with consultants, evaluation of patient's response to treatment, examination of patient, obtaining history from patient or surrogate, ordering and performing treatments and interventions, ordering and review of laboratory studies, ordering and review of radiographic studies, re-evaluation of patient's condition and vascular access procedures Care discussed with: accepting provider at another facility Rehab M Andrés SHAH PROCEDURE/MINOR SURGICAL ORDE TEN Final Result * CT ABD+PEL W CON (07/06/2025 8:08 PM CDT) Anatomical Region Laterality Modality Abdomen Computed Tomogra phy 07/06/2025 8:18 PM CDT Impressions 07/06/2025 8:34 PM CDT IMPRESSION: 1. Suboptimal quality helical CT pulmonary angiogram. Within this limitation, no large central acute pulmonary embolism is identified. 2. CT findings suggestive of right lower lobe pneumonia. A follow-up chest CT in 8- 12 weeks is recommended to ensure complete resolution. 3. Cholelithiasis with associated gallbladder distention; acute cholecystitis most. A follow-up gallbladder ultrasound could be considered if there is clinical concern for acute cholecystitis. 4. Nonspecific ill-defined hypodense 3.2 cm segment 4 left hepatic lobe lesion. This can be further assessed on follow-up ultrasound of the liver and gallbladder. 5. Nonspecific mesenteric lymphadenopathy measuring up to 13 mm short axis. A short interval follow-up CT in 3 months is recommended for evaluation. 6. Scattered colonic diverticulosis without evidence of acute inflammation. 7. There is fusiform dilation the mid ascending thoracic aorta measuring up to 4.1 cm. Continued attention on follow-up is recommended to ensure stability. Ordered By: EFREN CUEVAS Interpreted By: Jennifer Al MD, 07/06/2025 8:18 PM Narrative 07/06/2025 8:34 PM CDT [facility] [address] [place] [address] PROCEDURE: CT ABD+PEL W CON, CTA CHEST PE PROTOCOL. HISTORY: Evaluate for pulmonary embolism. Hypoxia. Fever. TECHNIQUE: Contrast enhanced helical CT pulmonary angiography was then performed. Routine transaxial and post-processed (sagittal and coronal MPR) reformations of the acquired data sets were obtained (Isovue-370, 100mL). Standard 3-D (MIP) reformations of the acquired data sets were also obtained. Helical CT of the abdomen and pelvis was performed using non-ionic intravenous contrast. Ingested oral contrast partially opacifies the bowel. . A dose lowering technique was used for this procedure, which may include, but is not limited to, dose reduction technique, automated exposure control, the use of iterative reconstruction, and ALARA (As Low As Reasonably Achievable) / Image Gently techniques. COMPARISON: AP chest, 9 12,025 PULMONARY CTA FINDINGS: This is a suboptimal quality helical CT pulmonary angiogram. There is no large central acute pulmonary embolism OTHER FINDINGS: Support Devices: None. Heart/Pericardium/Great Vessels: Cardiac size is mildly enlarged There is extensive calcific coronary artery atherosclerosis. There is no pericardial effusion. There is mild thoracic aortic and branch vessel atherosclerosis, portions calcific. The main pulmonary artery is dilated measuring up to 3.8 cm, which can be seen pulmonary hypertension The mid ascending thoracic aorta measures up to 4.1 cm. Pleural Spaces: The pleural spaces are clear. Mediastinum/Gemma: There is no mediastinal or hilar lymph node enlargement. Small hiatal hernia. Neck Base/Chest Wall/Diaphragm: There is no supraclavicular or axillary lymph node enlargement. Multiple degenerative change is present in the spine. No aggressive osseous lesions identified. Lungs/Central Airways: The trachea and central airways are clear and normal in caliber. There is right basilar consolidative opacities. No suspicious pulmonary nodules identified. FINDINGS CT ABDOMEN/PELVIS: Liver: The liver is normal in size. There is ill-defined 3.2 cm segment 4 left hepatic lobe hypodense lesion (series 503, image 43.. There is diffuse hepatic steatosis. Biliary tree: There is cholelithiasis with associated gallbladder distention.. There is no biliary ductal dilatation. Spleen: The spleen is normal in size. Pancreas: The pancreas is normal in size and enhances homogenously. Adrenal glands: The adrenal glands are normal in size and shape. Kidneys: There are bilateral symmetric nephrograms without hydronephrosis. Lymph nodes: Abdomen: Multiple enlarged mesenteric lymph nodes measuring up to 13 mm. Pelvis: There is no pelvic adenopathy. Vasculature: There is no abdominal aortic aneurysm. Atherosclerotic calcification is seen. Peritoneum/mesentery/omentum: There is no free fluid or free air. GI tract: There is no bowel obstruction. Scattered colonic diverticulosis without evidence of acute inflammation. The appendix is normal. Moderate fecal burden within the rectosigmoid colon. Pelvic urogenital structures:The bladder is grossly unremarkable. The prostate is mildly enlarged measuring up to 5.0 cm in the transverse dimension. Brachytherapy seeds are present within the prostate. Body wall: There are degenerative changes in the spine. 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 Bilateral hip degenerative changes. Small fat-containing paraumbilical hernia. Moreno: (S/I) = series number / image number Procedure Note Jennifer Al MD - 07/06/2025 [facility] [address] [facility] [place] [address] PROCEDURE: CT ABD+PEL W CON, CTA CHEST PE PROTOCOL. HISTORY: Evaluate for pulmonary embolism. Hypoxia. Fever. TECHNIQUE: Contrast enhanced helical CT pulmonary angiography was thenperformed. Routine transaxial and post-processed (sagittal and coronalMPR) reformations of the acquired data sets were obtained (Isovue-370,100mL). Standard 3-D (MIP) reformations of the acquired data sets werealso obtained. Helical CT of the abdomen and pelvis was performed using non-ionicintravenous contrast. Ingested oral contrast partially opacifies thebowel. . A dose lowering technique was used for this procedure, which may include,but is not limited to, dose reduction technique, automated exposurecontrol, the use of iterative reconstruction, and ALARA (As Low AsReasonably Achievable) / Image Gently techniques. COMPARISON: AP chest, 9 12,025 PULMONARY CTA FINDINGS: This is a suboptimal quality helical CT pulmonaryangiogram. There is no large central acute pulmonary embolism OTHERFINDINGS: Support Devices: None. Heart/Pericardium/Great Vessels: Cardiac size is mildly enlarged There is extensive calcific coronary artery atherosclerosis. There is no pericardial effusion. There is mild thoracic aortic and branch vessel atherosclerosis,portions calcific. The main pulmonary artery is dilated measuring up to 3.8 cm, whichcan be seen pulmonary hypertension The mid ascending thoracic aortameasures up to 4.1 cm. Pleural Spaces: The pleural spaces are clear. Mediastinum/Gemma: There is no mediastinal or hilar lymph nodeenlargement. Small hiatal hernia. Neck Base/Chest Wall/Diaphragm: There is no supraclavicular or axillarylymph node enlargement. Multiple degenerative change is present in thespine. No aggressive osseous lesions identified. Lungs/Central Airways: The trachea and central airways are clear andnormal in caliber. There is right basilar consolidative opacities. Nosuspicious pulmonary nodules identified. FINDINGS CT ABDOMEN/PELVIS: Liver: The liver is normal in size. There is ill-defined 3.2 cm segment 4left hepatic lobe hypodense lesion (series 503, image 43.. There isdiffuse hepatic steatosis. Biliary tree: There is cholelithiasis with associated gallbladderdistention.. There is no biliary ductal dilatation. Spleen: The spleen is normal in size. Pancreas: The pancreas is normal in size and enhances homogenously. Adrenal glands: The adrenal glands are normal in size and shape. Kidneys: There are bilateral symmetric nephrograms withouthydronephrosis. Lymph nodes: Abdomen: Multiple enlarged mesenteric lymph nodes measuring up to 13 mm. Pelvis: There is no pelvic adenopathy. Vasculature: There is no abdominal aortic aneurysm. Atheroscleroticcalcification is seen. Peritoneum/mesentery/omentum: There is no free fluid or free air. GI tract: There is no bowel obstruction. Scattered colonic diverticulosiswithout evidence of acute inflammation. The appendix is normal. Moderatefecal burden within the rectosigmoid colon. Pelvic urogenital structures:The bladder is grossly unremarkable. Theprostate is mildly enlarged measuring up to 5.0 cm in the transversedimension. Brachytherapy seeds are present within the prostate. Body wall: There are degenerative changes in the spine. Grade 2anterolisthesis on L5-S1 with bilateral pars defects. Bilateral hipdegenerative changes. Small fat-containing paraumbilical hernia. Moreno: (S/I) = series number / image number IMPRESSION: 1. Suboptimal quality helical CT pulmonary angiogram. Within thislimitation, no large central acute pulmonary embolism is identified. 2. CT findings suggestive of right lower lobe pneumonia. A follow-upchest CT in 8-12 weeks is recommended to ensure complete resolution. 3. Cholelithiasis with associated gallbladder distention; acutecholecystitis most. A follow-up gallbladder ultrasound could be consideredif there is clinical concern for acute cholecystitis. 4. Nonspecific ill-defined hypodense 3.2 cm segment 4 left hepatic lobelesion. This can be further assessed on follow-up ultrasound of the liverand gallbladder. 5. Nonspecific mesenteric lymphadenopathy measuring up to 13 mm shortaxis. A short interval follow-up CT in 3 months is recommended forevaluation. 6. Scattered colonic diverticulosis without evidence of acuteinflammation. 7. There is fusiform dilation the mid ascending thoracic aorta measuringup to 4.1 cm. Continued attention on follow-up is recommended to ensurestability. Ordered By: EFREN CUEVAS Interpreted By: Jennifer Al MD, 07/06/2025 8:18 PM Efren Cuevas MD CT Final Result * CTA CHEST PE PROTOCOL (07/06/2025 8:08 PM CDT) Anatomical Region Laterality Modality Chest Computed Tomogra phy 07/06/2025 8:18 PM CDT Impressions 07/06/2025 8:34 PM CDT IMPRESSION: 1. Suboptimal quality helical CT pulmonary angiogram. Within this limitation, no large central acute pulmonary embolism is identified. 2. CT findings suggestive of right lower lobe pneumonia. A follow-up chest CT in 8- 12 weeks is recommended to ensure complete resolution. 3. Cholelithiasis with associated gallbladder distention; acute cholecystitis most. A follow-up gallbladder ultrasound could be considered if there is clinical concern for acute cholecystitis. 4. Nonspecific ill-defined hypodense 3.2 cm segment 4 left hepatic lobe lesion. This can be further assessed on follow-up ultrasound of the liver and gallbladder. 5. Nonspecific mesenteric lymphadenopathy measuring up to 13 mm short axis. A short interval follow-up CT in 3 months is recommended for evaluation. 6. Scattered colonic diverticulosis without evidence of acute inflammation. 7. There is fusiform dilation the mid ascending thoracic aorta measuring up to 4.1 cm. Continued attention on follow-up is recommended to ensure stability. Ordered By: EFREN CUEVAS Interpreted By: Jennifer Al MD, 07/06/2025 8:18 PM Narrative 07/06/2025 8:34 PM CDT [facility] [address] [place] [address] PROCEDURE: CT ABD+PEL W CON, CTA CHEST PE PROTOCOL. HISTORY: Evaluate for pulmonary embolism. Hypoxia. Fever. TECHNIQUE: Contrast enhanced helical CT pulmonary angiography was then performed. Routine transaxial and post-processed (sagittal and coronal MPR) reformations of the acquired data sets were obtained (Isovue-370, 100mL). Standard 3-D (MIP) reformations of the acquired data sets were also obtained. Helical CT of the abdomen and pelvis was performed using non-ionic intravenous contrast. Ingested oral contrast partially opacifies the bowel. . A dose lowering technique was used for this procedure, which may include, but is not limited to, dose reduction technique, automated exposure control, the use of iterative reconstruction, and ALARA (As Low As Reasonably Achievable) / Image Gently techniques. COMPARISON: AP chest, PULMONARY CTA FINDINGS: This is a suboptimal quality helical CT pulmonary angiogram. There is no large central acute pulmonary embolism OTHER FINDINGS: Support Devices: None. Heart/Pericardium/Great Vessels: Cardiac size is mildly enlarged There is extensive calcific coronary artery atherosclerosis. There is no pericardial effusion. There is mild thoracic aortic and branch vessel atherosclerosis, portions calcific. The main pulmonary artery is dilated measuring up to 3.8 cm, which can be seen pulmonary hypertension The mid ascending thoracic aorta measures up to 4.1 cm. Pleural Spaces: The pleural spaces are clear. Mediastinum/Gemma: There is no mediastinal or hilar lymph node enlargement. Small hiatal hernia. Neck Base/Chest Wall/Diaphragm: There is no supraclavicular or axillary lymph node enlargement. Multiple degenerative change is present in the spine. No aggressive osseous lesions identified. Lungs/Central Airways: The trachea and central airways are clear and normal in caliber. There is right basilar consolidative opacities. No suspicious pulmonary nodules identified. FINDINGS CT ABDOMEN/PELVIS: Liver: The liver is normal in size. There is ill-defined 3.2 cm segment 4 left hepatic lobe hypodense lesion (series 503, image 43.. There is diffuse hepatic steatosis. Biliary tree: There is cholelithiasis with associated gallbladder distention.. There is no biliary ductal dilatation. Spleen: The spleen is normal in size. Pancreas: The pancreas is normal in size and enhances homogenously. Adrenal glands: The adrenal glands are normal in size and shape. Kidneys: There are bilateral symmetric nephrograms without hydronephrosis. Lymph nodes: Abdomen: Multiple enlarged mesenteric lymph nodes measuring up to 13 mm. Pelvis: There is no pelvic adenopathy. Vasculature: There is no abdominal aortic aneurysm. Atherosclerotic calcification is seen. Peritoneum/mesentery/omentum: There is no free fluid or free air. GI tract: There is no bowel obstruction. Scattered colonic diverticulosis without evidence of acute inflammation. The appendix is normal. Moderate fecal burden within the rectosigmoid colon. Pelvic urogenital structures:The bladder is grossly unremarkable. The prostate is mildly enlarged measuring up to 5.0 cm in the transverse dimension. Brachytherapy seeds are present within the prostate. Body wall: There are degenerative changes in the spine. 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 Bilateral hip degenerative changes. Small fat-containing paraumbilical hernia. Moreno: (S/I) = series number / image number Procedure Note Jennifer Al MD - 07/06/2025 [facility] [address] [address] [facility] [place] [address] PROCEDURE: CT ABD+PEL W CON, CTA CHEST PE PROTOCOL. HISTORY: Evaluate for pulmonary embolism. Hypoxia. Fever. TECHNIQUE: Contrast enhanced helical CT pulmonary angiography was thenperformed. Routine transaxial and post-processed (sagittal and coronalMPR) reformations of the acquired data sets were obtained (Isovue-370,100mL). Standard 3-D (MIP) reformations of the acquired data sets werealso obtained. Helical CT of the abdomen and pelvis was performed using non-ionicintravenous contrast. Ingested oral contrast partially opacifies thebowel. . A dose lowering technique was used for this procedure, which may include,but is not limited to, dose reduction technique, automated exposurecontrol, the use of iterative reconstruction, and ALARA (As Low AsReasonably Achievable) / Image Gently techniques. COMPARISON: AP chest, 9 12,025 PULMONARY CTA FINDINGS: This is a suboptimal quality helical CT pulmonaryangiogram. There is no large central acute pulmonary embolism OTHERFINDINGS: Support Devices: None. Heart/Pericardium/Great Vessels: Cardiac size is mildly enlarged There is extensive calcific coronary artery atherosclerosis. There is no pericardial effusion. There is mild thoracic aortic and branch vessel atherosclerosis,portions calcific. The main pulmonary artery is dilated measuring up to 3.8 cm, whichcan be seen pulmonary hypertension The mid ascending thoracic aortameasures up to 4.1 cm. Pleural Spaces: The pleural spaces are clear. Mediastinum/Gemma: There is no mediastinal or hilar lymph nodeenlargement. Small hiatal hernia. Neck Base/Chest Wall/Diaphragm: There is no supraclavicular or axillarylymph node enlargement. Multiple degenerative change is present in thespine. No aggressive osseous lesions identified. Lungs/Central Airways: The trachea and central airways are clear andnormal in caliber. There is right basilar consolidative opacities. Nosuspicious pulmonary nodules identified. FINDINGS CT ABDOMEN/PELVIS: Liver: The liver is normal in size. There is ill-defined 3.2 cm segment 4left hepatic lobe hypodense lesion (series 503, image 43.. There isdiffuse hepatic steatosis. Biliary tree: There is cholelithiasis with associated gallbladderdistention.. There is no biliary ductal dilatation. Spleen: The spleen is normal in size. Pancreas: The pancreas is normal in size and enhances homogenously. Adrenal glands: The adrenal glands are normal in size and shape. Kidneys: There are bilateral symmetric nephrograms withouthydronephrosis. Lymph nodes: Abdomen: Multiple enlarged mesenteric lymph nodes measuring up to 13 mm. Pelvis: There is no pelvic adenopathy. Vasculature: There is no abdominal aortic aneurysm. Atheroscleroticcalcification is seen. Peritoneum/mesentery/omentum: There is no free fluid or free air. GI tract: There is no bowel obstruction. Scattered colonic diverticulosiswithout evidence of acute inflammation. The appendix is normal. Moderatefecal burden within the rectosigmoid colon. Pelvic urogenital structures:The bladder is grossly unremarkable. Theprostate is mildly enlarged measuring up to 5.0 cm in the transversedimension. Brachytherapy seeds are present within the prostate. Body wall: There are degenerative changes in the spine. Grade 2anterolisthesis on L5-S1 with bilateral pars defects. Bilateral hipdegenerative changes. Small fat-containing paraumbilical hernia. Moreno: (S/I) = series number / image number IMPRESSION: 1. Suboptimal quality helical CT pulmonary angiogram. Within thislimitation, no large central acute pulmonary embolism is identified. 2. CT findings suggestive of right lower lobe pneumonia. A follow-upchest CT in 8-12 weeks is recommended to ensure complete resolution. 3. Cholelithiasis with associated gallbladder distention; acutecholecystitis most. A follow-up gallbladder ultrasound could be consideredif there is clinical concern for acute cholecystitis. 4. Nonspecific ill-defined hypodense 3.2 cm segment 4 left hepatic lobelesion. This can be further assessed on follow-up ultrasound of the liverand gallbladder. 5. Nonspecific mesenteric lymphadenopathy measuring up to 13 mm shortaxis. A short interval follow-up CT in 3 months is recommended forevaluation. 6. Scattered colonic diverticulosis without evidence of acuteinflammation. 7. There is fusiform dilation the mid ascending thoracic aorta measuringup to 4.1 cm. Continued attention on follow-up is recommended to ensurestability. Ordered By: EFREN CUEVAS Interpreted By: Jennifer Al MD, 07/06/2025 8:18 PM Efren Cuevas MD CT Final Result * (ABNORMAL) LACTIC ACID W REFLEX (SEPSIS) (07/06/2025 8:05 PM CDT) LACTIC ACID VENOUS 5.7(HH) 0.4 - 2.0 MMOL/L 07/06/2025 8:40 PM CDT [facility] Comment: Critical Result(s) Called at: 20:40:03 on 07/06/2025 by: GAIL MALLORY to and read back by: JAKI CALLAHAN RN IN ED 07/06/2025 8:05 PM CDT Ernesto Bowen MD LABORATORY Final Result [facility] [address] [address] [id number], * XR CHEST PORTABLE (07/06/2025 7:18 PM CDT) Anatomical Region Laterality Modality Chest Radiographic Herlinda ging 07/06/2025 8:0 0 PM CDT Impressions 07/06/2025 8:02 PM CDT IMPRESSION: 1. Bilateral patchy airspace opacities, which may represent areas of atelectasis or multifocal pneumonia in the appropriate clinical. Continued attention on follow- up is recommended. 2. No pneumothorax. Ordered By: EFREN CUEVAS Interpreted By: Jennifer Al MD, 07/06/2025 8:00 PM Narrative 07/06/2025 8:02 PM CDT [facility] [address] [facility] [place] [address] PROCEDURE: XR CHEST PORTABLE. 07/06/2025 7:18 PM. TECHNIQUE: A single view of the chest (AP or PA) was performed. HISTORY: Fever. COMPARISON: None. FINDINGS: Support Devices: None. Cardiac Silhouette/Mediastinum/Gemma: The cardiac, mediastinal, and hilar contours are unchanged in appearance. Lungs/Pleural Spaces: Patchy airspace opacities. No focal consolidation. The pleural spaces are clear. Chest Wall/Diaphragm/Upper Abdomen: Multilevel degenerative changes of lower cervical and thoracic spine mild lateral shoulder degenerative changes. The remaining visualized thoracic musculoskeletal structures and the upper abdomen are within normal limits patient's age.. Procedure Note Jennifer Al MD - 07/06/2025 [facility] [address] [facility]. [place] [id number] PROCEDURE: XR CHEST PORTABLE. 07/06/2025 7:18 PM. TECHNIQUE: A single view of the chest (AP or PA) was performed. HISTORY: Fever. COMPARISON: None. FINDINGS: Support Devices: None. Cardiac Silhouette/Mediastinum/Gemma: The cardiac, mediastinal, and hilarcontours are unchanged in appearance. Lungs/Pleural Spaces: Patchy airspace opacities. No focal consolidation.The pleural spaces are clear. Chest Wall/Diaphragm/Upper Abdomen: Multilevel degenerative changes oflower cervical and thoracic spine mild lateral shoulder degenerativechanges. The remaining visualized thoracic musculoskeletal structures andthe upper abdomen are within normal limits patient's age.. IMPRESSION: 1. Bilateral patchy airspace opacities, which may represent areas ofatelectasis or multifocal pneumonia in the appropriate clinical. Continuedattention on follow- up is recommended. 2. No pneumothorax. Ordered By: EFREN CUEVAS Interpreted By: Jennifer Al MD, 07/06/2025 8:00 PM us Efren Cuevas MD GENERAL IMAGING Final Result * STREP A RAPID (07/06/2025 6:54 PM CDT) RAPID STREP TEST NEGATIVE NEGATIVE 07/06/2025 7:34 PM CDT [facility] STRUCTURE OF ANTERIOR PORTION OF NECK / Unknown 07/06/2025 6:54 PM CDT us Efren Cuevas MD MICROBIOLOGY - GENERAL ORDERABL ES Final Result Performing Organization Address [facility] Co de Phone Number [facility] [address] [place] [address], [place] [phone] * RESP SYNCYTIAL VIRUS (07/06/2025 6:54 PM CDT) SPECIMEN TYPE NASOPHARYNGEAL SWAB 07/06/2025 7:04 PM CDT [facility] RAPID RSV NEGATIVE NEGATIVE 07/06/2025 7:34 PM CDT [facility] NASOPHARYNGEAL SWAB / Unknown 07/06/2025 6:54 PM CDT us Efren Cuevas MD MICROBIOLOGY - GENERAL ORDERABL ES Final Result [facility] [address] [place] [address], * INFLUENZA A & B (07/06/2025 6:54 PM CDT) SPECIMEN TYPE NASOPHARYNX 07/06/2025 7:34 PM CDT [facility] INFLUENZA A NEGATIVE NEGATIVE 07/06/2025 7:34 PM CDT [facility] INFLUENZA B NEGATIVE NEGATIVE 07/06/2025 7:34 PM CDT [facility] NASOPHARYNGEAL SWAB / Unknown 07/06/2025 6:54 PM CDT us Efren Cuevas MD MICROBIOLOGY - GENERAL ORDERABL ES Final Result [facility] [address] [place] [address], * CORONAVIRUS (COVID-19) MOLECULAR (07/06/2025 6:54 PM CDT) CORONAVIRUS SARS COV 2 RNA NEGATIVE NEGATIVE 07/06/2025 7:34 PM CDT [facility] Comment: NEGATIVE RESULTS DO NOT RULE OUT COVID 19 AND SHOULD NOT BE USED THE SOLE BASIS FOR TREATMENT OR PATIENT MANAGEMENT DECISIONS, INCLUDING INFECTION CONTROL DECISIONS. NEGATIVE RESULTS SHOULD BE CONSIDERED IN THE CONTEXT OF A PATIENT'S RECENT EXPOSURES, HISTORY AND THE PRESENCE OF CLINICAL SIGNS AND SYMPTOMS CONSISTENT WITH COVID 19. THE ID NOW COVID-19 2.0 TEST HAS BEEN AUTHORIZED BY THE FDA UNDER EAU FOR USE BY AUTHORIZED LABORATORIES. PERFORMED BY NUCLEIC ACID AMPLIFICATION FOR MOLECULAR QUALITATIVE DETECTION OF SARS-COV-2. SPECIMEN TYPE NASAL 07/06/2025 7:04 PM CDT [facility] NASOPHARYNGEAL SWAB / Unknown 07/06/2025 6:54 PM CDT us Efren Cuevas MD MICROBIOLOGY - GENERAL ORDERABL ES Final Result Performing Organization Address [facility]/ZIP Co de Phone Number [facility] [address] [place] [address], * (ABNORMAL) ARTERIAL BLOOD GAS (07/06/2025 6:40 PM CDT) PH ARTERIAL 7.52(H) 7.35 - 7.45 07/06/2025 6:50 PM CDT [facility] PCO2 28.0(L) 35 - 45 MMHG 07/06/2025 6:50 PM CDT [facility] PO2 60.0(L) 83 - 108 MMHG 07/06/2025 6:50 PM CDT [facility] TOTAL CO2 ARTERIAL 23.8 19.0 - 24.0 MMOL/L 07/06/2025 6:50 PM CDT [facility] BASE EXCESS 1.1 0 - 3 MMOL/L 07/06/2025 6:50 PM CDT [facility] O2 SATURATION 93(L) 94.0 - 98.0 % 07/06/2025 6:50 PM CDT [facility] BICARB ARTERIAL 22.9 21.0 - 28.0 MMOL/L 07/06/2025 6:50 PM CDT [facility] STEPHANY TEST POSITIVE STEPHANY TEST 07/06/2025 6:50 PM CDT [facility] O2 ADMIN ARTERIAL 3 LITERS PER MINUTE 07/06/2025 6:49 PM T [facility] DRAW SITE ARTERIAL DRAWN FROM RIGHT WRIST 07/06/2025 6:50 PM T [facility] 07/06/2025 6:40 PM CDT Efren Cuevas MD LABORATORY Final Result [facility] [address] [place] [address], [place] [phone] * (ABNORMAL) Blood gas, venous (07/06/2025 6:27 PM CDT) PH VENOUS 7.48(H) 7.32 - 7.43 07/06/2025 6:39 PM CDT [facility] PCO2 VENOUS 34.0 MMHG 07/06/2025 6:39 PM CDT [facility] Comment:NO REFERENCE RANGE H BEEN ESTABLISHED PO2 VENOUS 36.0 MM HG 07/06/2025 6:39 PM CDT [facility] Comment:NO REFERENCE RANGE H BEEN ESTABLISHED TOTAL CO2 VENOUS 26.3(H) 22.0 - 26.0 MMOL/L 07/06/2025 6:39 PM CDT [facility] BASE EXCESS VENOUS 2.2 MMOL/L 07/06/2025 6:39 PM CDT [facility] Comment:NO REFERENCE RANGE H BEEN ESTABLISHED O2 SAT VENOUS 74 % 07/06/2025 6:39 PM T [facility] Comment:NO REFERENCE RANGE H BEEN ESTABLISHED BICARB VENOUS 25.3 22.0 - 29.0 MMOL/L 07/06/2025 6:39 PM CDT [facility] O2 ADMIN VENOUS 3 LITERS PER MINUTE 07/06/2025 6:39 PM T [facility] 07/06/2025 6:27 PM CDT Efren Cuevas MD LABORATORY Final Result [facility] [address] [place] [address], [place] [phone] * (ABNORMAL) MAGNESIUM (07/06/2025 5:31 PM CDT) MAGNESIUM 1.7(L) 1.8 - 2.4 MG/DL 07/06/2025 7:17 PM CDT [facility] 07/06/2025 5:31 PM CDT us Efren Cuevas MD LABORATORY Final Result Performing Organization Address City/[facility]/ZIP Co de Phone Number [facility] [address] [place] [address], [place] [phone] * BETA-HYDROXYBUTYRATE (07/06/2025 5:31 PM CDT) BETA-HYDROXYBUT YRATE 0.2 0.0 - 0.6 MMOL/L 07/06/2025 6:04 PM CDT [facility] 07/06/2025 5:31 PM CDT us Efren Cuevas MD LABORATORY Final Result Performing Organization Address [facility] de Phone Number [facility] [address] [place] [address], [place] [phone] * (ABNORMAL) LACTIC ACID - SINGLE (07/06/2025 5:31 PM CDT) LACTIC ACID VENOUS 4.9(HH) 0.4 - 2.0 MMOL/L 07/06/2025 6:25 PM CDT [facility] Comment: Critical Result(s) Called at: 18:23:37 on 07/06/2025 by: JOSE RODRIGUEZ to and read back by: TYRA CHAHAL RN AN ORDER FOR A REPEAT LACTIC ACID TEST IS REQUIRED WITHIN 6 HOURS OF DIAGNOSIS ON A PATIENT WITH SEVERE SEPSIS. 07/06/2025 5:31 PM CDT us Efren Cuevas MD LABORATORY Final Result Performing Organization Address City/[facility]/ZIP Co de Phone Number [facility] [address] [place] [address], [place] [phone] * LIPASE (07/06/2025 5:31 PM CDT) Pathologist [facility] LIPASE 17 16 - 77 UNITS/L 07/06/2025 6:23 PM CDT [facility] 07/06/2025 5:31 PM CDT us Efren Cuevas MD LABORATORY Final Result Performing Organization Address [facility] Co de Phone Number [facility] [address] [place] [address], [place] [phone] * (ABNORMAL) PRO-BRAIN NATRIURETIC PEPTIDE (07/06/2025 5:31 PM CDT) [facility] PRO-B TYPE NATRIURETIC PEPTIDE 465(H) <450 PG/ML 07/06/2025 6:23 PM CDT [facility] Comment: CUT POINTS ESTABLISHED BY [employer] ON NT PROBNP (ICON) STUDY (2006). AGE INDEPENDENT: <300 PG/ML HAS A 99% NEGATIVE PREDICTIVE VALUE FOR EXCLUDING ACUTE CHF <50 YEARS: >450 PG/ML IS CONSISTENT WITH ACUTE CHF 50-75 YEARS: >900 PG/ML IS CONSISTENT WITH ACUTE CHF >75 YEARS: >1800 PG/ML IS CONSISTENT WITH ACUTE CHF IN PATIENTS WITH RENAL INSUFFICIENCY (GFR <60), >1200 PG/ML YIELDS A DIAGNOSTIC SENSITIVITY AND SPECIFICITY OF 89% AND 72% FOR ACUTE CHF. 07/06/2025 5:31 PM CDT us Efren Cuevas MD LABORATORY Final Result Performing Organization Address City/[facility]/ZIP Co de Phone Number [facility] [address] [place] [address], [place] [phone] * TROPONIN, QUANT (07/06/2025 5:31 PM CDT) [facility] TROPONIN I HIGH SENSITIVITY 30 0 - 75 ng/L 07/06/2025 6:18 PM CDT [facility] Comment: HIGH DOSES OF BIOTIN, TROPONIN-SPECIFIC AUTOANTIBODIES, AND ANTIBODY THERAPY CONTAINING HAMA MAY INTERFERE WITH THIS TEST RESULT. CORRELATION TO CLINICAL HISTORY AND PRESENTATION RECOMMENDED. 07/06/2025 5:31 PM CDT us Efren Cuevas MD LABORATORY Final Result Performing Organization Address City/[facility]/ZIP Co de Phone Number [facility] [address] [place] [address], [place] [phone] * CK (CPK) (07/06/2025 5:31 PM CDT) Pathologist [facility] CPK 135 39 - 308 U/L 07/06/2025 6:23 PM CDT [facility] 07/06/2025 5:31 PM CDT us Efren Cuevas MD LABORATORY Final Result Performing Organization Address City/[facility]/ZIP Co de Phone Number [facility] [address] [place] [address], [place] [phone] * (ABNORMAL) COMPREHENSIVE METABOLIC PANEL (07/06/2025 5:31 PM CDT) Pathologist [facility] GLUCOSE 132(H) 70 - 99 MG/DL 07/06/2025 6:23 PM CDT [facility] BUN 13 7 - 18 MG/DL 07/06/2025 6:23 PM CDT [facility] CREATININE S/P/B 1.30 0.7 - 1.3 MG/DL 07/06/2025 6:23 PM CDT [facility] SODIUM S/P/B 137 136 - 145 MMOL/L 07/06/2025 6:23 PM CDT [facility] POTASSIUM S/P/B 3.2(L) 3.5 - 5.1 MMOL/L 07/06/2025 6:23 PM [facility] CHLORIDE S/P/B 98(L) 100 - 108 MMOL/L 07/06/2025 6:23 PM [facility] CO2 24.0 21 - 32 MMOL/L 07/06/2025 6:23 PM [facility] CALCIUM S/P/B 8.9 8.5 - 10.1 MG/DL 07/06/2025 6:23 PM [facility] BILIRUBIN TOTAL S/P/B 2.2(H) 0.2 - 1.2 MG/DL 07/06/2025 6:23 PM [facility] TOTAL PROTEIN S/P/B 7.4 6.4 - 8.2 G/DL 07/06/2025 6:23 PM [facility] ALBUMIN S/P/B 3.7 3.4 - 5.0 G/DL 07/06/2025 6:23 PM [facility] AST 49(H) 15 - 37 U/L 07/06/2025 6:23 PM [facility] ALT 40 16 - 60 U/L 07/06/2025 6:23 PM [facility] ALKALINE PHOSPHATASE S/P/B 84 50 - 136 U/L 07/06/2025 6:23 PM [facility] ANION GAP 15.0 5 - 15 MMOL/L 07/06/2025 6:23 PM [facility] BUN CREATININE RATIO 10.0 6 - 26 07/06/2025 6:23 PM [facility] A/G RATIO 1.0 1.0 - 2.0 RATIO 07/06/2025 6:23 PM CDT [facility] GFR ESTIMATE 57(L) >90 ML/MIN/1.7 3 M2 07/06/2025 6:23 PM CDT [facility] Comment: NOTE: eGFR is not calculated for patients <18 years of age. This is an estimated GFR calculation using the new CKD EPI creatinine equation without race and so does not require a correction factor for race. This estimated GFR should not be used for calculating drug doses. 07/06/2025 5:31 PM CDT us Efren Cuevas MD LABORATORY Final Result [facility] [address] [place] [address], * (ABNORMAL) CBC W/DIFF AUTOMATED (07/06/2025 5:31 PM CDT) WBC 1.21(LL) 4.4 - 11.0 x10'3/uL 07/06/2025 6:08 PM CDT [facility] Comment: ALERT VALUE CALLED TO AND READ BACK BY: TYRA CHAHAL RN ON AT 1808. JDJ RBC 4.35(L) 4.50 - 5.90 x10'6/uL 07/06/2025 6:08 PM CDT [facility] HGB 14.1 14.0 - 17.5 G/DL 07/06/2025 6:08 PM CDT [facility] HCT 40.4(L) 41.5 - 50.4 % 07/06/2025 6:08 PM CDT [facility] MCV 92.9 80.0 - 96.0 FL 07/06/2025 6:08 PM CDT [facility] MCH 32.4(H) 26.5 - 31.4 PG 07/06/2025 6:08 PM CDT [facility] MCHC 34.9(H) 31.9 - 34.8 G/DL 07/06/2025 6:08 PM CDT [facility] RDW 12.9 12.3 - 14.3 % 07/06/2025 6:08 PM CDT [facility] PLT 111(L) 151 - 353 x10'3/uL 07/06/2025 6:08 PM CDT [facility] MPV 9.4(L) 9.7 - 11.9 FL 07/06/2025 6:08 PM CDT [facility] SEG NEUTROPHILS 90(H) 42 - 72 % 6:37 PM CDT [facility] BANDS 2 % 07/06/2025 6:37 PM CDT [facility] LYMPHOCYTES 7(L) 15.8 - 45.0 % 07/06/2025 6:37 PM T [facility] MONOCYTES 1(L) 5.7 - 12.5 % 07/06/2025 6:37 PM CDT [facility] ABS. NEUTROPHILS 1.11(L) 1.40 - 6.00 x10'3/uL 07/06/2025 6:37 PM CDT [facility] ABS. LYMPHOCYTES 0.08(L) 0.80 - 4.70 x10'3/uL 07/06/2025 6:37 PM T [facility] PLT MORPH. NORMAL 07/06/2025 6:37 PM CDT [facility] RBC MORPHOLOGY NORMAL 07/06/2025 6:37 PM T [facility] WBC MORPHOLOGY NORMAL 07/06/2025 6:37 PM T [facility] 07/06/2025 5:31 PM CDT us Efren Cuevas MD LABORATORY Final Result [facility] [address] [place] [address], [place] [phone] documented in this encounter Visit Diagnoses Diagnosis Septic shock ([facility] [place])- Primary Sepsis, due to unspecified organism, unspecified whether acute organ dysfunction present ([facility]) Pneumonia due to infectious organism, unspecified laterality, unspecified part of lung Acute hypoxic respiratory failure ([facility]) documented in this encounter Administered Medications Active Administered Medications - up to 3 most recent administrations Medication Order MAR Action Action Date Dose Rate Site norepinephrine (LEVOPHED) 4 mg in NS 250 mL infusion 0.5-60 mcg/min (1.875-225 mL/hr, rounded to 1.88-225 mL/hr), Intravenous, Continuous, Starting on Wed07/06/25 at 2045, Until Discontinued, INITIAL RATE: 5 mcg/min TITRATE by: 1-5 mcg/min no more frequently than every 1 minute Goal: MAP GREATER THAN or EQUAL TO 65 MAXIMUM RATE: 60 mcg/min WEAN: Start weaning once goal is met and maintained for at least 15 minutes. Wean 1-5 mcg/min, no more frequently than every 1 minute. Continue weaning as long as goal is maintained. Nurse to titrate/wean based on patient's clinical status and response to medication. NOTIFY PROVIDER if rate of 40 mcg/min is reached and/or SBP LESS than 90 mmHg or MAP LESS than 55 mmHg despite 3 upward titrations NOTIFY PROVIDER if MAP GREATER THAN 90 at ANY time - OR - if MAP GREATER THAN 80 for 3 consecutive readings despite weaning rate. The order in which vasopressors are to be discontinued will be dictated by provider. Rate/Dose Change 07/06/2025 11:45 PM CDT 2 mcg/min 7.5 mL/hr Rate/Dose Change 07/06/2025 11:37 PM CDT 3 mcg/min 11.25 mL/hr Rate/Dose Change 07/06/2025 11:27 PM CDT 4 mcg/min 15 mL/ hr vancomycin pharmacy to dose placeholder Intravenous, See admin instructions, Starting on Wed07/06/25 at 1811, Until Wed07/09/25 at 1810, Vancomycin Placeholder Only: Do NOT document administrations on this placeholder.(Use medication on DEC to document administrations or contact pharmacy if medication order not entered.) Inactive Administered Medications - up to 3 most recent administrations Medication Order MAR Action Action Date Dose Rate Site acetaminophen (TYLENOL) tablet 1,000 mg 1,000 mg, Oral, Once, 1 dose, On Wed07/06/25 at 1915, Maximum dose of acetaminophen is 4000 mg from all sources in 24 hours. Given 07/06/2025 7:16 PM CDT 1,000 mg azithromycin (ZITHROMAX) 500 mg in sodium chloride 0.9 % 250 mL IVPB 500 mg, Intravenous, at 255 mL/hr, Once, 1 dose, On Wed07/06/25 at 2145 [facility] 07/06/2025 9:49 PM CDT 500 mg 255 mL/hr ceFEPIme (MAXIPIME) 2 g in sodium chloride 0.9 % 100 mL IVPB 2 g, Intravenous, Administer over 30 Minutes, Once, 1 dose, On Wed07/06/25 at 1815 [facility] 07/06/2025 8:21 PM CDT 2 g 200 mL/hr hydrocortisone sodium succinate (Solu-CORTEF) injection 100 mg 100 mg, Intravenous, Once, 1 dose, On Wed07/06/25 at 2145, IV administration: Administer over at least 30 seconds. For large doses (over 500 mg), administer over 10 minutes. IM administration: Avoid injection into deltoid muscle Given 07/06/2025 9:49 PM CDT 100 mg iopamidol (ISOVUE-370) 76 % injection 100 mL 100 mL, Intravenous, IMG once as needed, Contrast, 1 dose, Starting on Wed07/06/25 at 2007, Until Wed07/06/25 at 2008 Given 07/06/2025 8:09 PM CDT 100 mLs Right Arm lactated ringers bolus infusion 1,000 mL 1,000 mL, Intravenous, Administer over 15 Minutes, Once, 1 dose, On Wed07/06/25 at 1800 [facility] 07/06/2025 6:19 PM CDT 1,000 mLs 4000 mL/hr lactated ringers bolus infusion 1,000 mL 1,000 mL, Intravenous, Administer over 30 Minutes, Once, 1 dose, On Wed07/06/25 at 1845 [facility] 07/06/2025 6:40 PM CDT 1,000 mLs 2000 mL/hr lactated ringers bolus infusion 1,000 mL 1,000 mL, Intravenous, Administer over 30 Minutes, Once, 1 dose, On Wed07/06/25 at 1930 [facility] 07/06/2025 7:28 PM CDT 1,000 mLs 2000 mL/hr magnesium sulfate IVPB 2 g 2 g, Intravenous, at 25 mL/hr, Once, 1 dose, On Wed07/06/25 at 2100 [facility] 07/06/2025 8:55 PM CDT 2 g 25 mL/hr potassium chloride CR (KLOR-CON M) tablet 40 mEq 40 mEq, Oral, Once, 1 dose, On Wed07/06/25 at 1845, Do not chew, crush, or suck on tablet. May break in half. May dissolve whole tablet in 120 mL of water and drink immediately. Given 07/06/2025 6:54 PM CDT 40 mEq vancomycin (VANCOCIN) 1,500 mg in sodium chloride 0.9 % 500 mL IVPB 1,500 mg, Intravenous, at 257.5 mL/hr, Once, 1 dose, On Wed07/06/25 at 1900 [facility] 07/06/2025 6:53 PM CDT 1,500 mg 257.5 mL/hr documented in this encounter Active and Recently Administered Medications Times are shown in CDT. Scheduled Medication Order 07/04/2025 07/05/2025 07/06/2025 acetaminophen (TYLENOL) tablet 1,000 mg (COMPLETED) 1,000 mg, Oral, Once, 1 dose, On Wed07/06/25 at 1915, Maximum dose of acetaminophen is 4000 mg from all sources in 24 hours. 1915 (Given - Provid er: Anshu Unger RN) azithromycin (ZITHROMAX) 500 mg in sodium chloride 0.9 % 250 mL IVPB (COMPLETED) 500 mg, Intravenous, at 255 mL/hr, Once, 1 dose, On Wed07/06/25 at 2145 2149 (New Bag - Prov ider: Anshu Unger RN)2250 (Infusion Stop Time - Provider: Anshu Unger RN) ceFEPIme (MAXIPIME) 2 g in sodium chloride 0.9 % 100 mL IVPB (COMPLETED) 2 g, Intravenous, Administer over 30 Minutes, Once, 1 dose, On Wed07/06/25 at 1815 2020 (New Bag - Prov ider: Anshu Unger RN)2048 (Infusion Stop Time - Provider: Anshu Unger RN) hydrocortisone sodium succinate (Solu-CORTEF) injection 100 mg (COMPLETED) 100 mg, Intravenous, Once, 1 dose, On Wed07/06/25 at 2145, IV administration: Administer over at least 30 seconds. For large doses (over 500 mg), administer over 10 minutes. IM administration: Avoid injection into deltoid muscle 2148 (Given - Provid er: Anshu Unger RN) lactated ringers bolus infusion 1,000 mL (COMPLETED) 1,000 mL, Intravenous, Administer over 15 Minutes, Once, 1 dose, On Wed07/06/25 at 1800 181 (New Bag - Prov ider: Ruthann Perez RN - Comment: hanging via arrival EMS)182 (Infusion Stop Time - Provider: Ruthann Perez RN) lactated ringers bolus infusion 1,000 mL (COMPLETED) 1,000 mL, Intravenous, Administer over 30 Minutes, Once, 1 dose, On Wed07/06/25 at 1845 1840 (New Bag - Prov ider: Shameka Diggs RN)1951 (Infusion Stop Time - Provider: Anshu Unger RN) lactated ringers bolus infusion 1,000 mL (COMPLETED) 1,000 mL, Intravenous, Administer over 30 Minutes, Once, 1 dose, On Wed07/06/25 at 1930 1928 (New Bag - Prov ider: Anshu Unger RN)2019 (Infusion Stop Time - Provider: Anshu Unger RN) magnesium sulfate IVPB 2 g (COMPLETED) 2 g, Intravenous, at 25 mL/hr, Once, 1 dose, On Wed07/06/25 at 2100 2054 (New Bag - Prov ider: Anshu Unger RN)2247 (Infusion Stop Time - Provider: Anshu Unger RN) potassium chloride CR (KLOR-CON M) tablet 40 mEq (COMPLETED) 40 mEq, Oral, Once, 1 dose, On Wed07/06/25 at 1845, Do not chew, crush, or suck on tablet. May break in half. May dissolve whole tablet in 120 mL of water and drink immediately. 185 (Given - Provid er: Shameka Diggs RN) vancomycin (VANCOCIN) 1,500 mg in sodium chloride 0.9 % 500 mL IVPB (COMPLETED) 1,500 mg, Intravenous, at 257.5 mL/hr, Once, 1 dose, On Wed07/06/25 at 1900 185 (New Bag - Prov ider: Shameka Diggs RN)2120 (Infusion Stop Time - Provider: Anshu Unger RN) vancomycin pharmacy to dose placeholder(Linked Group 1) Intravenous, See admin instructions, Starting on Wed07/06/25 at 1811, Until Wed07/09/25 at 1810, Vancomycin Placeholder Only: Do NOT document administrations on this placeholder.(Use medication on DEC to document administrations or contact pharmacy if medication order not entered.) Continuous Medication Order 07/04/2025 07/05/2025 07/06/2025 norepinephrine (LEVOPHED) 4 mg in NS 250 mL infusion 0.5-60 mcg/min (1.875-225 mL/hr, rounded to 1.88-225 mL/hr), Intravenous, Continuous, Starting on Wed07/06/25 at 2045, Until Discontinued, INITIAL RATE: 5 mcg/min TITRATE by: 1-5 mcg/min no more frequently than every 1 minute Goal: MAP GREATER THAN or EQUAL TO 65 MAXIMUM RATE: 60 mcg/min WEAN: Start weaning once goal is met and maintained for at least 15 minutes. Wean 1-5 mcg/min, no more frequently than every 1 minute. Continue weaning as long as goal is maintained. Nurse to titrate/wean based on patient's clinical status and response to medication. NOTIFY PROVIDER if rate of 40 mcg/min is reached and/or SBP LESS than 90 mmHg or MAP LESS than 55 mmHg despite 3 upward titrations NOTIFY PROVIDER if MAP GREATER THAN 90 at ANY time - OR - if MAP GREATER THAN 80 for 3 consecutive readings despite weaning rate. The order in which vasopressors are to be discontinued will be dictated by provider. 2054 (New Bag - Prov ider: Anshu Unger RN)2317 (No Change - Provider: Anshu Unger RN - Comment: Central line)2326 (Rate/Dose Change - Provider: Anshu Unger, ALFONZO)2337 (Rate/Dose Change - Provider: Anshu Unger, RN)2345 (Rate/Dose Change - Provider: Anshu Unger, RN)2350 (Continued to Floor - Provider: Anshu Unger, RN) PRN Medication Order 07/04/2025 07/05/2025 07/06/2025 iopamidol (ISOVUE-370) 76 % injection 100 mL (COMPLETED) 100 mL, Intravenous, IMG once as needed, Contrast, 1 dose, Starting on Wed07/06/25 at 2007, Until Wed07/06/25 at 2008 2008 (Given - Provid er: Jessie George RTR) Linked Groups Order Group 1: Pharmacy to dose vancomycin () Routine, Once, On Wed07/06/25 at 1812, For 1 occurrence, Indications: Bloodstream/Line infection And vancomycin pharmacy to dose placeholderJump to med Intravenous, See admin instructions, Starting on Wed07/06/25 at 1811, Until Wed07/09/25 at 1810, Vancomycin Placeholder Only: Do NOT document administrations on this placeholder.(Use medication on DEC to document administrations or contact pharmacy if medication order not entered.) documented in this encounter Additional Health Concerns Infection Onset Date Last Indicated Resolved Time COVID-19 Rule Out 07/06/2025 07/06/2025 07/06/2025 7:34 PM CDT Respiratory Rule Out 07/06/2025 07/06/2025 025 7:34 PM CDT documented as of this encounter 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
[2025-07-07] VITALS (39 sets, daily range): BP systolic 82–139; BP diastolic 53–87; PULSE 72–134; RESP 18–46; TEMP 36.4–41.1; O2SAT 90–99; BMI 33.2
--- NOTE | 2025-07-07 00:25 | PC.NURSE ---
This patient, Van Young, was admitted to Intensive Care Unit-3. Patient/family oriented to hospital policies and general routines including ID bracelet, bed and alarms, visiting hours, pain management, procedures, bathroom and other care routines, personal items, smoking policy, room service/diet, and visiting hours. Information on how to activate the Rapid Response Team has been discussed. Patient/Family are encouraged to report perceived risks to care and to ask questions if they do not understand what they are told or what they should do.
--- OUTSIDE RECORDS SUMMARY | 2025-07-07 00:35 | XMS_ITS | Clinical Summary ---
Author Organization [facility] Address [address] [place] [address] Care Team Providers Care Inseminator Name Role Phone Sourav Olguin MD Primary Care Provider [phone] Allergies Active Allergy Reactions Criticality Noted Date Comments Seasonal Runny Nose 02/10/2023 Medications losartan (COZAAR) 100 MG tablet Take 1 tablet (100 mg total) by mouth daily. 01/25/2023 Active metFORMIN (GLUCOPHAGE) 500 MG tablet Take 1 tablet (500 mg total) by mouth every morning. 02/03/2023 Active simvastatin (ZOCOR) 40 MG tablet Take 1 tablet (40 mg total) by mouth nightly at bedtime. 01/03/2023 Active fluticasone propionate (FLONASE) 50 MCG/ACT nasal spray 1 spray by Each Nostril route daily. 06/15/2022 Active Multiple Vitamins-Minera ls (CENTRUM SILVER) Tab Take 1 tablet by mouth daily. Active Vitamin D3 (CHOLECALCIFERO L) 50 mcg tablet Take 1 tablet (50 mcg total) by mouth daily. Active aspirin EC (ECOTRIN) 81 MG tablet Take 1 tablet (81 mg total) by mouth daily. Active hypromellose (SYSTANE) 0.3 % ophthalmic gel Place 1 drop into both eyes 3 (three) times daily as needed for Dry eyes. Active cranberry 500 MG Cap Take 1 capsule by mouth daily. Active Krill Oil 500 MG Cap Active sildenafil (VIAGRA) 100 MG tablet Take 0.5 tablets (50 mg total) by mouth as needed. 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 Nonrheumatic mitral valve regurgitation 02/25/20 23 Bradycardia 02/10/2023 Encounters Date Type Department Care Team Description 07/06/2025 5:30 PM CDT - 07/06/2025 11:52 PM CDT Emergency [facility] Emergency Room [address] [place] [address] Efren Cuevas MD Stanton, Rehab M, MD Generalized Weakness; Abdominal Pain Discharge Disposition: Another Health Care Institution Not Defined 07/06/2025 Travel 06/27/2025 Abstract [facility], [address] [address] Nica Blank MA from Last 3 Months Immunizations Immunization Administration Dates Next Due PFIZER COVID-19 (ORIGINAL FO RMULATION, PURPLE CAP) mRNA, LNP-S, PF, 30 MCG/0.3 ML DOSE 01/24/2021,01/03/2021 Family History Medical History Relation Comments Heart Disease Father Hyperlipidemia Father Hypertension Father COPD Mother Relation Status Comments Father Mother Social History Tobacco Use Types Packs/Day Years Used Date Smoking Tobacco: Former Cigarettes Q uit: 1987 Smokeless Tobacco: Never Tobacco Cessation:Counseling Given: Not Answered Alcohol Use Standard Drinks/Week Comments Not Currently [...] place to sleep or slept in a care home (including now)? No 02/10/2023 Sex and Gender Information Value Date Recorded Sex Assigned at Male 07/06/2025 7:12 PM CDT Legal Sex Male 5:12 PM CDT Gender Identity Male 07/06/2025 7:12 PM CDT Sexual Orientation Straight 07/06/2025 7: 12 PM CDT Last Filed Vital Signs Vital Sign Reading [...] Mass Index 32.78 07/06/2025 5:31 PM CDT Plan of Treatment Upcoming Encounters Date Type Department Care Team (Late st Contact Info) Description 07/11/2025 10:45 AM CDT Office Visit [facility] [address] [place] [address] Samuel Calderon MD Three [facility]. [address] [place] [address] Health Maintenance Due Date Last Done Comments Hepatitis C 1966 DTaP, Tdap and Td Vaccines ( 1 - Tdap) 1967 Pneumococcal Vaccine: 50+ Years (1 of 2 - PCV) 1967 Zoster Vaccines (1 of 2) 1998 Annual Medicare Wellness Visit 2013 RSV Immunization or 60+ Years (1 - 1-dose 75+ series) 2023 COVID-19 Vaccine (3 - 2024-2 6 season) 2025 01/24/2021, 01/03/2021 Meningococcal B Vaccine Aged Out No l onger eligible based on patient's age to complete this topic Meningococcal Vaccine Aged Out No deepika hanna eligible based on patient's age to complete this topic RSV Immunizations Under 20 Months Aged Out No longer eligible b ased on patient's age to complete this topic Procedures Procedure Name Priority Date/Time Associated Diagnosis Comments XR CHEST PORTABLE STAT 07/06/2025 10:33 PM CDT LACTIC ACID W REFLEX (SEPSIS) TIMED 07/06/2025 10:29 PM CDT CENTRAL LINE Routine 07/06/2025 10:20 PM CDT URINALYSIS, AUTO, COMPLETE STAT 07/06/2025 8:15 PM CDT CRITICAL CARE Routine 07/06/2025 8:[address] ABD+PEL W CON STAT 07/06/2025 8:08 PM CDT CTA CHEST PE PROTOCOL STAT 07/06/2025 8:08 PM CDT LACTIC ACID W REFLEX (SEPSIS) STAT 07/06/2025 8:05 PM CDT XR CHEST PORTABLE STAT 07/06/2025 7:1 8 PM CDT STREP A RAPID STAT 07/06/2025 6:54 PM CDT RESP SYNCYTIAL VIRUS STAT 07/06/2025 6:54 PM CDT INFLUENZA A & B STAT 07/06/2025 6:54 PM CDT CORONAVIRUS (COVID 19) STAT 07/06/2025 6:54 PM CDT BLOOD GAS, ARTERIAL LAB STAT 07/06/2025 6:40 PM CDT ECG 12-LEAD STAT 07/06/2025 6:32 PM CDT Procedure Note - 07/06/2025 6:32 PM CDTThis note is in progress. [facility] Test Date: 2025-07-06 Pat Name: VAN CARLTON Department: 85 Room: EXAM 505 Gender: Male Inventory Clerk: : 1950 Requested By: EFREN CUEVAS Order Number: [id number] Reading MD: Measurements Intervals Hebo Rate: 123 P: 33 WV: 171 QRS: -57 QRSD: 114 T: 59 [...] VENOUS STAT 07/06/2025 6:2 7 PM CDT MAGNESIUM Routine 07/06/2025 5:31 PM CDT BETA-HYDROXYBUTYRATE STAT 07/06/2025 5:31 PM CDT LACTIC ACID STAT 07/06/2025 5:31 PM CDT LIPASE STAT 07/06/2025 5:31 PM CDT PRO-BRAIN NATRIURETIC PEPTIDE STAT 07/06/2025 5:31 PM CDT TROPONIN, QUANT STAT 07/06/2025 5:31 PM CDT CK (CPK) STAT 07/06/2025 5:31 PM CDT COMPREHENSIVE METABOLIC PANEL STAT 07/06/2025 5:31 PM CDT CBC W/DIFF AUTOMATED STAT 07/06/2025 5:31 PM CDT from Last 3 Months Results * XR CHEST PORTABLE (07/06/2025 10:33 PM CDT) Only the most recent of2 resultswithin the time period is included. Anatomical Region Laterality Modality Chest Radiographic Herlinda ging 07/06/2025 11:0 1 PM CDT Impressions 07/06/2025 11:02 PM CDT IMPRESSION: Reticular opacities at the right lung base that may be seen with atelectasis or pneumonia. Referred By: Interpreted By: Romero Lopez MD, 07/06/2025 11:01 PM Narrative 07/06/2025 11:02 PM CDT [facility] [address] [place] [address] EXAMINATION: XR CHEST PORTABLE, 07/06/2025 11:02 PM [...] Procedure Note Romero Lopez MD - 07/06/2025 [facility] [address] [place] [address] EXAMINATION: XR CHEST PORTABLE, 07/06/2025 11:02 PM [...] By: Romero Lopez MD, 07/06/2025 11:01 PM Rehab Ophelia Bowen MD GENERAL IMAGING Final Result * (ABNORMAL) LACTIC ACID W REFLEX (SEPSIS) (07/06/2025 10:29 PM CDT) Only the most recent of2 resultswithin the time period is included. LACTIC ACID VENOUS 3.5(HH) 0.4 - 2.0 MMOL/L 07/06/2025 10:58 PM CDT [facility] Comment: Critical Result(s) Called at: 22:56:52 on 07/06/2025 by: GAIL MALLORY to and read back by: INNA MEJÍA IN ED 07/06/2025 10:2 9 PM CDT Ernesto Bowen MD LABORATORY Final Result [facility] [address] [place] [address], [place] [phone] * Central Line (07/06/2025 10:20 PM CDT) [...] (U) DARK YELLOW 07/06/2025 8:45 PM CDT [facility] TRANSPARENCY HAZY 07/06/2025 8:45 PM CDT [facility] SPECIFIC GRAVITY (U) 1.010 1.000 - 1.030 07/06/2025 8:45 PM CDT [facility] U PH 6.0 5.0 - 9.0 07/06/2025 8:45 PM CDT [facility] LEUKOCYTES (U) NEGATIVE NEGATIVE 07/06/2025 8:45 PM CDT [facility] NITRITES NEGATIVE NEGATIVE 07/06/2025 8:45 PM CDT [facility] PROTEIN RANDOM (U) 1+(A) NEGATIVE 07/06/2025 8:45 PM CDT [facility] GLUCOSE (U) NEGATIVE NEGATIVE 07/06/2025 8:45 PM CDT [facility] KETONES MG/DL (U) TRACE(A) NEGATIVE 07/06/2025 8:45 PM CDT [facility] BILIRUBIN (U) NEGATIVE NEGATIVE 07/06/2025 8:45 PM CDT [facility] BLOOD (U) 1+(A) NEGATIVE 07/06/2025 8:45 PM CDT [facility] WBC/HPF 0-5 0 - 5 /HPF 07/06/2025 8:45 PM CDT [facility] RBC/HPF 5-10 0 - 5 /HPF 07/06/2025 8:45 PM CDT [facility] EPI/HPF RARE /HPF 07/06/2025 8:45 PM CDT [facility] BACTERIA (U) MODERATE /HPF 07/06/2025 8:45 PM CDT [facility] URINE SPECIMEN OBTAINED BY CLEAN CATCH PROCEDURE / Unknown 07/06/2025 8:15 PM CDT us Efren Cuevas MD URINE ORDERABLES Final Result [facility] [address] [place] [address], [place] [phone] * Critical Care (07/06/2025 8:13 PM CDT) Ernesto Xavier MD - 07/06/2025 8:13 PM CDT Ernesto [...] discussed with: accepting provider at another facility Ernesto Bowen MD PROCEDURE/MINOR SURGICAL ORDE RABLES Final Result * CTA CHEST PE PROTOCOL [...] 8:18 PM Narrative 07/06/2025 8:34 PM CDT [facility] [address] [place] [address] PROCEDURE: CT ABD+PEL W CON, CTA CHEST [...] Procedure Note Jennifer Al MD - 07/06/2025 [facility] [address] [facility] [place] [address] PROCEDURE: CT ABD+PEL W CON, CTA CHEST [...] Efren Cuevas MD CT Final Result * CT ABD+PEL W CON [...] 8:18 PM Narrative 07/06/2025 8:34 PM CDT [place] [id number] [facility] [place] [address] PROCEDURE: CT ABD+PEL W CON, CTA CHEST [...] Procedure Note Jennifer Al MD - 07/06/2025 [facility] [address] [place] [address] PROCEDURE: CT ABD+PEL W CON, CTA CHEST [...] Efren Cuevas MD CT Final Result * CORONAVIRUS (COVID-19) MOLECULAR (07/06/2025 6:54 PM CDT) CORONAVIRUS SARS COV 2 RNA NEGATIVE NEGATIVE 07/06/2025 7:34 PM CDT [facility] Comment: NEGATIVE RESULTS DO NOT [...] SPECIMEN TYPE NASAL 07/06/2025 7:04 PM CDT [facility] NASOPHARYNGEAL SWAB / Unknown 07/06/2025 6:54 PM CDT us Efren Cuevas MD MICROBIOLOGY - GENERAL ORDERABL ES Final Result Performing Organization Address City/[facility]/ZIP Co de Phone Number [facility] [address] [place] [address], [place] [phone] * INFLUENZA A & B (07/06/2025 6:54 PM CDT) Pathologist [facility] SPECIMEN TYPE NASOPHARYNX 07/06/2025 7:34 PM CDT [facility] INFLUENZA A NEGATIVE NEGATIVE 07/06/2025 7:34 PM CDT [facility] INFLUENZA B NEGATIVE NEGATIVE 07/06/2025 7:34 PM CDT [facility] NASOPHARYNGEAL SWAB / Unknown 07/06/2025 6:54 PM CDT us Efren Cuevas MD MICROBIOLOGY - GENERAL ORDERABL ES Final Result Performing Organization Address City/[facility]/ZIP Co de Phone Number [facility] [address] [place] [address], [place] [phone] * STREP A RAPID (07/06/2025 6:54 PM CDT) RAPID STREP TEST NEGATIVE NEGATIVE 07/06/2025 7:34 PM CDT [facility] STRUCTURE OF ANTERIOR PORTION OF NECK / Unknown 07/06/2025 6:54 PM CDT us Efren Cuevas MD MICROBIOLOGY - GENERAL ORDERABL ES Final Result Performing Organization Address City/[facility]/ZIP Co de Phone Number [facility] [address] [place] [address], [place] [phone] * RESP SYNCYTIAL VIRUS (07/06/2025 6:54 PM CDT) SPECIMEN TYPE NASOPHARYNGEAL SWAB 07/06/2025 7:04 PM CDT [facility] RAPID RSV NEGATIVE NEGATIVE 07/06/2025 7:34 PM CDT [facility] NASOPHARYNGEAL SWAB / Unknown 07/06/2025 6:54 PM CDT us Efren Cuevas MD MICROBIOLOGY - GENERAL ORDERABL ES Final Result Performing Organization Address City/[facility]/ZIP Co de Phone Number [facility] [address] [place] [address], [place] [phone] * (ABNORMAL) ARTERIAL BLOOD GAS (07/06/2025 6:40 PM CDT) PH ARTERIAL 7.52(H) 7.35 - 7.45 07/06/2025 6:50 PM CDT [facility] PCO2 28.0(L) 35 - 45 MMHG 07/06/2025 6:50 PM CDT [facility] PO2 60.0(L) 83 - 108 MMHG 07/06/2025 6:50 PM CDT [facility] TOTAL CO2 ARTERIAL 23.8 19.0 - 24.0 MMOL/L 07/06/2025 6:50 PM CDT [facility] BASE EXCESS 1.1 0 - 3 MMOL/L 07/06/2025 6:50 PM CDT [facility] O2 SATURATION 93(L) 94.0 - 98.0 % 07/06/2025 6:50 PM CDT [facility] BICARB ARTERIAL 22.9 21.0 - 28.0 MMOL/L 07/06/2025 6:50 PM CDT [facility] STEPHANY TEST POSITIVE STEPHANY TEST 07/06/2025 6:50 PM CDT [facility] O2 ADMIN ARTERIAL 3 LITERS PER MINUTE 07/06/2025 6:49 PM CDT [facility] DRAW SITE ARTERIAL DRAWN FROM RIGHT WRIST 07/06/2025 6:50 PM T [facility] 07/06/2025 6:40 PM CDT us Efren Cuevas MD LABORATORY Final Result [facility] [address] [place] [address], * (ABNORMAL) Blood gas, venous (07/06/2025 6:27 PM CDT) PH VENOUS 7.48(H) 7.32 - 7.43 07/06/2025 6:39 PM CDT [facility] PCO2 VENOUS 34.0 MMHG 07/06/2025 6:39 PM CDT [facility] Comment:NO REFERENCE RANGE H BEEN ESTABLISHED PO2 VENOUS 36.0 MM HG 07/06/2025 6:39 PM CDT [facility] Comment:NO REFERENCE RANGE H BEEN ESTABLISHED TOTAL CO2 VENOUS 26.3(H) 22.0 - 26.0 MMOL/L 07/06/2025 6:39 PM CDT [facility] BASE EXCESS VENOUS 2.2 MMOL/L 07/06/2025 6:39 PM CDT [facility] Comment:NO REFERENCE RANGE H BEEN ESTABLISHED O2 SAT VENOUS 74 % 07/06/2025 6:39 PM CDT [facility] Comment:NO REFERENCE RANGE H BEEN ESTABLISHED BICARB VENOUS 25.3 22.0 - 29.0 MMOL/L 07/06/2025 6:39 PM CDT [facility] O2 ADMIN VENOUS 3 LITERS PER MINUTE 07/06/2025 6:39 PM CDT [facility] 07/06/2025 6:27 PM CDT us Efren Cueavs MD LABORATORY Final Result Performing Organization Address City/[facility]/ZIP Co de Phone Number [facility] [address] [place] [address], * BETA-HYDROXYBUTYRATE (07/06/2025 5:31 PM CDT) BETA-HYDROXYBUT YRATE 0.2 0.0 - 0.6 MMOL/L 07/06/2025 6:04 PM CDT [facility] 07/06/2025 5:31 PM CDT us Efren Cuevas MD LABORATORY Final Result Performing Organization Address City/[facility]/ZIP Co de Phone Number [facility] [address] [place] [address], * (ABNORMAL) PRO-BRAIN NATRIURETIC PEPTIDE (07/06/2025 5:31 PM CDT) PRO-B TYPE NATRIURETIC PEPTIDE 465(H) <450 PG/ML 07/06/2025 6:23 PM CDT [facility] Comment: CUT POINTS ESTABLISHED BY [...] us Efren Cuevas MD LABORATORY Final Result [facility] [address] [place] [address], [place] [phone] * (ABNORMAL) COMPREHENSIVE METABOLIC PANEL (07/06/2025 5:31 PM CDT) Pathologist [facility] GLUCOSE 132(H) 70 - 99 MG/DL 07/06/2025 6:23 PM CDT [facility] BUN 13 7 - 18 MG/DL 07/06/2025 6:23 PM T [facility] CREATININE S/P/B 1.30 0.7 - 1.3 MG/DL 07/06/2025 6:23 PM T [facility] SODIUM S/P/B 137 136 - 145 MMOL/L 07/06/2025 6:23 PM T [facility] POTASSIUM S/P/B 3.2(L) 3.5 - 5.1 MMOL/L 07/06/2025 6:23 PM T [facility] CHLORIDE S/P/B 98(L) 100 - 108 MMOL/L 07/06/2025 6:23 PM CDT [facility] CO2 24.0 21 - 32 MMOL/L 07/06/2025 6:23 PM T [facility] CALCIUM S/P/B 8.9 8.5 - 10.1 MG/DL 07/06/2025 6:23 PM [facility] BILIRUBIN TOTAL S/P/B 2.2(H) 0.2 - 1.2 MG/DL 07/06/2025 6:23 PM [facility] TOTAL PROTEIN S/P/B 7.4 6.4 - 8.2 G/DL 07/06/2025 6:23 PM [facility] ALBUMIN S/P/B 3.7 3.4 - 5.0 G/DL 07/06/2025 6:23 PM [facility] AST 49(H) 15 - 37 U/L 07/06/2025 6:23 PM [facility] ALT 40 16 - 60 U/L 07/06/2025 6:23 PM [facility] ALKALINE PHOSPHATASE S/P/B 84 50 - 136 U/L 07/06/2025 6:23 PM [facility] ANION GAP 15.0 5 - 15 MMOL/L 07/06/2025 6:23 PM [facility] BUN CREATININE RATIO 10.0 6 - 26 07/06/2025 6:23 PM [facility] A/G RATIO 1.0 1.0 - 2.0 RATIO 07/06/2025 6:23 PM [facility] GFR ESTIMATE 57(L) >90 ML/MIN/1.7 3 M2 07/06/2025 6:23 PM [facility] Comment: NOTE: eGFR is not calculated for patients <18 years of age. This is an estimated GFR calculation using the new CKD EPI creatinine equation without race and so does not require a correction factor for race. This estimated GFR should not be used for calculating drug doses. 07/06/2025 5:31 PM CDT us Efren Cuevas MD LABORATORY Final Result Performing Organization Address [facility]/ZIP Co de Phone Number [facility] [address] [place] [address], [place] [phone] * (ABNORMAL) LACTIC ACID - SINGLE (07/06/2025 5:31 PM CDT) LACTIC ACID VENOUS 4.9(HH) 0.4 - 2.0 MMOL/L 07/06/2025 6:25 PM CDT [facility] Comment: Critical Result(s) Called at: 18:23:37 on 07/06/2025 by: JOSE RODRIGUEZ to and read back by: TYRA CHAHAL RN AN ORDER FOR A REPEAT LACTIC ACID TEST IS REQUIRED WITHIN 6 HOURS OF DIAGNOSIS ON A PATIENT WITH SEVERE SEPSIS. 07/06/2025 5:31 PM CDT Efren Cuevas MD LABORATORY Final Result [facility] [address] [place] [address], [place] [phone] * (ABNORMAL) CBC W/DIFF AUTOMATED (07/06/2025 5:31 PM CDT) WBC 1.21(LL) 4.4 - 11.0 x10'3/uL 07/06/2025 6:08 PM CDT [facility] Comment: ALERT VALUE CALLED TO AND READ BACK BY: TYRA CHAHAL RN ON AT 1808. JDJ RBC 4.35(L) 4.50 - 5.90 x10'6/uL 07/06/2025 6:08 PM CDT [facility] HGB 14.1 14.0 - 17.5 G/DL 07/06/2025 6:08 PM CDT [facility] HCT 40.4(L) 41.5 - 50.4 % 07/06/2025 6:08 PM CDT [facility] MCV 92.9 80.0 - 96.0 FL 07/06/2025 6:08 PM CDT [facility] MCH 32.4(H) 26.5 - 31.4 PG 07/06/2025 6:08 PM CDT [facility] MCHC 34.9(H) 31.9 - 34.8 G/DL 07/06/2025 6:08 PM CDT [facility] RDW 12.9 12.3 - 14.3 % 07/06/2025 6:08 PM T [facility] PLT 111(L) 151 - 353 x10'3/uL 07/06/2025 6:08 PM T [facility] MPV 9.4(L) 9.7 - 11.9 FL 07/06/2025 6:08 PM T [facility] SEG NEUTROPHILS 90(H) 42 - 72 % 6:37 PM CDT [facility] BANDS 2 % 07/06/2025 6:37 PM CDT [facility] LYMPHOCYTES 7(L) 15.8 - 45.0 % 07/06/2025 6:37 PM T [facility] MONOCYTES 1(L) 5.7 - 12.5 % 07/06/2025 6:37 PM T [facility] ABS. NEUTROPHILS 1.11(L) 1.40 - 6.00 x10'3/uL 07/06/2025 6:37 PM T [facility] ABS. LYMPHOCYTES 0.08(L) 0.80 - 4.70 x10'3/uL 07/06/2025 6:37 PM T [facility] PLT MORPH. NORMAL 07/06/2025 6:37 PM CDT [facility] RBC MORPHOLOGY NORMAL 07/06/2025 6:37 PM CDT [facility] WBC MORPHOLOGY NORMAL 07/06/2025 6:37 PM CDT [facility] 07/06/2025 5:31 PM CDT us Efren Cuevas MD LABORATORY Final Result Performing Organization Address [facility]/ZIP Co de Phone Number [facility] [address] [place] [address], [place] [phone] * TROPONIN, QUANT (07/06/2025 5:31 PM CDT) TROPONIN I HIGH SENSITIVITY 30 0 - 75 ng/L 07/06/2025 6:18 PM CDT [facility] Comment: HIGH DOSES OF BIOTIN, TROPONIN-SPECIFIC AUTOANTIBODIES, AND ANTIBODY THERAPY CONTAINING HAMA MAY INTERFERE WITH THIS TEST RESULT. CORRELATION TO CLINICAL HISTORY AND PRESENTATION RECOMMENDED. 07/06/2025 5:31 PM CDT us Efren Cuevas MD LABORATORY Final Result Performing Organization Address [facility] Co de Phone Number [facility] [address] [place] [address], [place] [phone] * (ABNORMAL) MAGNESIUM (07/06/2025 5:31 PM CDT) MAGNESIUM 1.7(L) 1.8 - 2.4 MG/DL 07/06/2025 7:17 PM CDT [facility] 07/06/2025 5:31 PM CDT us Efren Cuevas MD LABORATORY Final Result Performing Organization Address City/[facility]/ZIP Co de Phone Number [facility] [address] [place] [address], [place] [phone] * LIPASE (07/06/2025 5:31 PM CDT) LIPASE 17 16 - 77 UNITS/L 07/06/2025 6:23 PM CDT [facility] 07/06/2025 5:31 PM CDT us Efren Cuevas MD LABORATORY Final Result [facility] [address] [place] [address], [place] [phone] * CK (CPK) (07/06/2025 5:31 PM CDT) CPK 135 39 - 308 U/L 07/06/2025 6:23 PM CDT [facility] 07/06/2025 5:31 PM CDT us Efren Cuevas MD LABORATORY Final Result [facility] [address] [place] [address], [place] [phone] from Last 3 Months Insurance MEDICARE [facility] Advance Directives * Full Code (Latest Code Status on File) Date Activated Date Inactivated Comments 02/10/2023 3:30 PM 02/11/2023 1:39 PM Care Teams Inseminator Relationship Specialty Start Date End Date Sourav Olguin MD [address] [place] [address] PCP - General INTERNAL MEDICINE 02/10/23
--- OUTSIDE RECORDS SUMMARY | 2025-07-07 00:35 | XMS_ITS | Encounter Summary ---
Author Organization [facility] Address [address] [place] [address] Care Team Providers Care Greens Planter Name Role Phone Sourav Olguin MD Primary Care Provider [phone] Encounter Details Date Type Department Care Team (Latest Contact Info) Description 07/06/2025 Travel Social History Tobacco Use Types Packs/Day Years [...] place to sleep or slept in a senior care (including now)? No 02/10/2023 Sex and Gender Information Value Date Recorded Sex Assigned at Male 07/06/2025 7:12 PM CDT Legal Sex Male 5:12 PM CDT Gender Identity Male 07/06/2025 7:12 PM CDT Sexual Orientation Straight 07/06/2025 7: 12 PM CDT documented as of this encounter Functional Status * Are you [...] PM CDT Shameka Diggs RN Active * [place] Suicide Severity Rating Scale (Screener/Recent Self-Report) Question [...] Sylvester RN Active documented in this encounter Plan of Treatment Upcoming Encounters Date Type Department Care Team (Late st Contact Info) Description 07/11/2025 10:45 AM CDT Office Visit [place] [facility] [address] [place] [phone] Samuel Calderon MD [address] [address] documented as of this encounter Visit Diagnoses Not on filedocumented in this encounter Additional Health Concerns Infection Onset Date Last Indicated Resolved Time COVID-19 Rule Out 07/06/2025 07/06/2025 07/06/2025 7:34 PM CDT Respiratory Rule Out 07/06/2025 07/06/2025 025 7:34 PM CDT documented as of this encounter Care Teams [employer] Relationship Specialty Start Date End Date Sourav Olguin MD [address] [place] [address] PCP - General INTERNAL MEDICINE 02/10/23 documented as of this encounter
--- OUTSIDE RECORDS SUMMARY | 2025-07-07 00:35 | XMS_ITS | Encounter Summary ---
Author Organization [facility] Address [address] [place] [address] Care Team Providers Care Senior Bioinformatics Specialist Name Role Phone Sourav Olguin MD Primary Care Provider [phone] Encounter Details Date Type Department Care Team (Late st Contact Info) Description 06/27/2025 Abstract [facility] [address] [address] Nica Blank MA Social History Tobacco Use Types Packs/Day Years Used Date Smoking Tobacco: Former Cigarettes Q uit: 1987 Smokeless Tobacco: Never Alcohol Use Standard Drinks/Week [...] place to sleep or slept in a [facility] (including now)? No 02/10/2023 Sex and Gender [...] No 02/10/2023 3:40 PM CDT Chana Sylvester ALFONZO Active * Because of a physical, mental, or emotional condition, do you have difficulty doing errands alone such as visiting a doctor's office or shopping? Answer Date of Assessment Author Status No 02/10/2023 3:40 PM CDT Chana Sylvester RN Active documented as of this encounter Mental Status [...] Description 07/11/2025 10:45 AM CDT Office Visit [facility] [address] [place] [id number] Samuel Calderon MD [address] [address] documented as of this encounter Procedures Procedure Name Priority Date/Time Associated Diagnosis Comments COMPREHENSIVE METABOLIC PANEL Routine 02/28/2025 LIPID PANEL Routine 02/28/2025 VITAMIN D, 25 OH Routine 02/28/2025 HEMOGLOBIN, GLYCOSYLATED Routine 11/02/2024 COMPREHENSIVE METABOLIC PANEL Routine 11/02/2024 LIPID PANEL Routine 11/02/2024 documented in this encounter Results * VITAMIN D, 25 OH (02/28/2025) Pathologist [facility] VITAMIN D 25 HYDROXY S/P/B 47.8 02/28/2025 us Default History Genericprovider LABORATORY Final Result * COMPREHENSIVE METABOLIC PANEL (02/28/2025) SODIUM S/P/B 137 GLUCOSE 109 mg/dL AST 24 BUN 13 CREATININE S/P/B 0.85 0.7 - 1.3 CALCIUM S/P/B 9.6 POTASSIUM S/P/B 4.7 CHLORIDE S/P/B 98 ALT 21 GFR ESTIMATE 90 us Default History Genericprovider LABORATORY Final Result * LIPID PANEL (02/28/2025) CHOLESTEROL 157 TRIGLYCERIDES 120 HDL 42 LDL (CALCULATED) 93 us Default History Genericprovider LABORATORY Final Result * COMPREHENSIVE METABOLIC PANEL (11/02/2024) SODIUM S/P/B 139 GLUCOSE 111 mg/dL AST 24 BUN 12 CREATININE S/P/B 0.80 0.7 - 1.3 CALCIUM S/P/B 9.4 POTASSIUM S/P/B 4.5 CHLORIDE S/P/B 102 ALT 21 GFR ESTIMATE 92 us Default History Genericprovider LABORATORY Final Result * LIPID PANEL (11/02/2024) CHOLESTEROL 140 TRIGLYCERIDES 106 LDL (CALCULATED) 79 us Default History Genericprovider LABORATORY Final Result * HEMOGLOBIN, GLYCOSYLATED (11/02/2024) HGB A1C 6.4 % us Default History Genericprovider LABORATORY Final Result documented in this encounter Visit Diagnoses Not on filedocumented in this encounter Additional Health Concerns Infection Onset Date Last Indicated Resolved Time COVID-19 Rule Out 07/06/2025 07/06/2025 07/06/2025 7:34 PM CDT Respiratory Rule Out 07/06/2025 07/06/2025 025 7:34 PM CDT documented as of this encounter Care Teams Senior Bioinformatics Specialist Relationship Specialty Start Date End Date Sourav Olguin MD [address] [place] [address] PCP - General INTERNAL MEDICINE 02/10/23 documented as of this encounter
[2025-07-07] MEDS: NOREPINEPHRINE 8 MG/D5W 250 ML 8 MG/250 ML BAG 3.75 MG IV CONT (00:40)
--- NOTE | 2025-07-07 00:55 | PM.IMHP ---
H&P: HPI History of Present Illness Date/Time: 07/07/25 00:55 Chief Complaint: Chills, abdominal bloating Narrative: 74-year-old male with a past medical history of essential hypertension, paroxysmal atrial fibrillation status post ablation 2023, prostate cancer status post radiation treatment who presented to the ER at [facility] due to chills and abdominal bloating. The patient reports that he and his were in [place] for vacation. Two days ago they had stopped to eat some [employer]. The next morning he woke up in his abdomen was distended and ?felt like it was going to pop?. He was having belching in still passing flatulence. He had not had a bowel movement for 2 days but also had no appetite or desire to eat. He denies any localizing abdominal pain. And never had any history of abdominal surgeries. He had tried taking some Pepto-Bismol without relief in symptoms. He did have 1 episode of vomiting prior to coming to the ER at [facility]. A reported that shortly after arriving home he started having severe chills that would not stop the bite wrapping himself in several blankets. He took some Tylenol and went to lie down. When he woke up he was diaphoretic and so fatigued that he could not get out of bed. He still had not had a bowel movement so he did take a dose of milk of magnesia. When he arrived at the outside ER he was noted have a temperature of a 102.5?. He is tachycardic with heart rates in the 1 20s and had a normal respiratory rate. He denied having any cough congestion or shortness of breath. Labs at the outside hospital demonstrated significant leukopenia white count of 1.2 and 90% neutrophils with 2 bands and mild thrombocytopenia at 01:11. His hemoglobin was stable compared to prior values at that facility 14.1. He had ill initial lactic acid level 4.9 that increased up to 5.7 despite receiving at 30 mL/kilos fluid bolus. The ER providers stated that once the patient's fever had resolved the patient's blood pressures decompensated was placed on Levophed. She subsequently placed a right IJ. the patient was started on empiric antibiotic therapy with vancomycin and cefepime. The patient had a CTA of the chest abdomen pelvis with suboptimal timing of contrast bolus but no large pulmonary embolism noted. CT did demonstrate possible right lower lobe pneumonia and cholelithiasis with associated gallbladder wall distension with acute cholecystitis being most likely cause. Patient did have mild hyperbilirubinemia noted on labs at the outside facility was bilirubin of 2.2. He also had some mild hypokalemia and received 40 mEq potassium chloride rider due to a potassium of 3.2 and 82 g magnesium sulfate rider due to magnesium level of 1.7. The patient's ABG demonstrated pH 7.5 pCO2 of 28 PO2 of 60 bicarb of 23. Strep and COVID PCRs were negative. UA was negative for nitrates esterase or bacteria. Blood cultures were obtained at the outside facility. Due to concern for possible pneumonia azithromycin was added to antibiotic regimen. The patient is established with Dr. Sourav Olguin and the family requested transfer to [facility] for further management. On arrival to our facility a patient's blood pressures had improved and is Levophed was weaned down to 3. The patient had developed an oxygen requirement at the outside hospital requiring 4 L nasal cannula to maintain oxygen saturations of 93%. He denied any recent cough congestion or shortness of breath. He denies any known ill contacts. He denied any diarrhea but when he arrived to our facility was incontinent of stool with stool was solid and dried to his buttocks. He also smelled strongly of urine but denied any recent dysuria changes in urinary frequency or hematuria. Review of Systems Review of Systems: 12 systems were reviewed with pertinent positives and negatives per HPI. Except as documented in the HPI, all other systems were reviewed and are negative. [facility] Past Medical History Medical History (Updated 07/07/25 @ 07:56 by Asuncion Ruiz DO) Allergic rhinitis Body mass index [BMI] 33.0-33.9, adult (11/24/16) Cough due to CANDI inhibitor Erectile dysfunction due to arterial insufficiency Impaired glucose tolerance (oral) Prostate CA (~2019) HTN (hypertension) HLD (hyperlipidemia) Vitamin D deficiency disease Hyperglycemia Surgical History Surgical History (Updated 07/07/25 @ 02:27 by Asuncion Ruiz DO) History of tonsillectomy and adenoidectomy History of cardiac ablation for atrial fibrillation (~2023) Family History Family History Father Acute myocardial infarction, Onset Age: 83 Hypertension Asthma Sibling Hypertension Other Family history of cardiovascular disease Social History Social History (Updated 07/07/25 @ 02:31 by Asuncion Ruiz DO) Social History: Code status: Full code Surrogate decision maker: Smoking status: Former smoker Tobacco type: cigarettes Smoking end date: 04/24/88 Additional smoking assessment comments: 1 to 1.5 packs per day from [age]yo Alcohol intake: former Alcohol use details: Drinks 6 pack per day but quit at age 38 Substance use: never Substance use type: does not use Do You Feel Safe in your Home?: Yes Lack of Transportation: No Lack of Food: Never True Current Housing: I Have Housing Concerned About Future Housing: No Difficulty Paying Gas/Electric Bills: No Difficulty Paying for Meds: No Currently Unemployed: No Education: High School Diploma/GED Difficulty w/ Childcare or Family Care: No Living arrangements: with family Additional living arrangements comments: Lives with his of 49 years. They have 5 children. Occupation/Education: retired Additional occupation/education comments: He is retired from [employer]. Spiritual care concerns: No Meds Home Medications and Allergies Home Medications ?Medication ?Instructions ?Recorded ?Confirmed ?Type aspirin 81 mg tablet,delayed 81 mg PO DAILY 11/19/20 07/07/25 History release cholecalciferol (vitamin D3) 25 1,000 unit PO DAILY 11/19/20 07/07/25 History mcg (1,000 unit) tablet (Vitamin D3) cranberry 500 mg capsule 500 mg PO DAILY 11/19/20 07/07/25 History multivitamin 1 tablet PO DAILY 11/19/20 07/07/25 History fluticasone propionate 50 1 spray intranasal BID #16 grams 07/08/22 07/07/25 Rx mcg/actuation nasal spray,suspension (Flonase Allergy Relief) sildenafil 100 mg tablet (Viagra) 100 mg PO DAILY PRN sexual 02/15/24 07/07/25 Rx activity #30 tabs metformin 500 mg tablet See Rx Instructions .Route 12/25/24 07/07/25 Rx .COMPLEX #90 tabs simvastatin 40 mg tablet See Rx Instructions .Route 03/27/25 07/07/25 Rx .COMPLEX #90 tabs losartan 100 mg tablet See Rx Instructions .Route 04/02/25 07/07/25 Rx .COMPLEX #90 tabs Allergies Allergy/AdvReac Type Severity Reaction Status Date / Time No Known Allergies Allergy Mild Verified 07/07/25 01:12 Exam Narrative: Weight 108.1 kg BMI 33.2 Const: Other: Mildly ill-appearing, obese, appears stated age HENMT: Other: Mucous membranes are dry, upper and lower dentures in place Eyes: Other: Mild scleral icterus, no conjunctival pallor, pupils are equal and reactive Neck: Other: No JVD, no lymphadenopathy, right IJ present Resp: Other: Clear to auscultation bilaterally, no increased work of breathing Cardio: Other: Sinus tachycardia, 2+ bilateral radial pedal pulses, no JVD, no murmur GI: Other: Distended, nontender to palpation, hypoactive bowel sounds, no organomegaly : Other: Ac catheter in place with cloudy dark kirsty urine Skin: Other: Warm to touch, mild jaundice, no pallor Neuro: Other: Alert oriented x4, speech is clear, no facial asymmetry, no localizing neurologic deficits noted during the course of conversation Extrem: Other: No clubbing, cyanosis or edema, moves all extremities equally Psych: Other: Appropriate mood and affect, pleasant and cooperative, judgment insight intact H&P: Results Labs Labs: Laboratory Tests 07/07/25 05:19 07/07/25 05:19 07/07/25 07/07/25 07/07/25 01:15 01:32 02:15 WBC RBC Hgb Hct MCV MCH MCHC RDW Plt Count MPV Immature Gran % (Auto) Neut % (Auto) Lymph % (Auto) Dewitt % (Auto) Eos % (Auto) Baso % (Auto) Lymph # (Auto) Dewitt # (Auto) Eos # (Auto) Baso # (Auto) Abs Immat Gran (auto) Absolute Neuts (auto) Absolute Nucleated RBC Total Counted Neutrophils % (Manual) Band Neutrophils % Lymphocytes % (Manual) Monocytes % (Manual) Nucleated RBC % Abs Neuts (Manual) Abs Lymphs (Manual) Abs Monocytes (Manual) Platelet Estimate % Immature Plt Fraction Schistocytes Sodium Potassium Chloride Carbon Dioxide Anion Gap BUN Creatinine Estim Creat Clear Calc Estimated GFR Glucose POC Capillary Glucose Lactic Acid 2.2 H Calcium Total Bilirubin AST ALT Alkaline Phosphatase Total Protein Albumin Urine Color Urine Appearance Urine pH Ur Specific Mclain Urine Protein Urine Glucose (UA) Urine Ketones Ur Blood (Man) Urine Nitrate Urine Bilirubin Urine Urobilinogen Add Ur Microanalysis Leukocyte Esterase Rfl Urine RBC Urine WBC Ur Squamous Epith Cells Urine Bacteria Urine Casts Urine Mucus Nasal MRSA (PCR) Not detected Nasal RSV Type A (PCR) Nasal RSV Type B (PCR) Chlamy pneumoniae PCR Pending Adenovirus (PCR) Pending Adenovirus DNA Human Bocavirus (ANDREW) B. pertussis DNA (PCR) Pending B.parapertussis DNA PCR Pending Coronavirus Type OC43 Coronavirus OC43 (PCR) Pending Coronavirus Type HKU1 Coronavirus HKU1 (PCR) Pending Coronavirus Type 229E Coronavirus 229E (PCR) Pending Coronavirus Type NL63 Coronavirus NL63 (PCR) Pending Human Metapneumovir PCR Pending Influenza A (H1) PCR Pending Influenza A (PCR) Influenza A (H1) RNA Influ A (H1/09) PCR Pending Influenza A (H3) PCR Pending Influenza Type A (PCR) Pending Influenza Type B (PCR) Pending M. pneumoniae (PCR) Pending M. pneumoniae DNA Parainfluenza PCR Parainfluenza 1 (PCR) Pending Parainfluenza 2 (PCR) Pending Parainfluenza 3 (PCR) Pending Parainfluenza 3 RNA (PCR) Parainfluenza 4 (PCR) Pending RSV (PCR) Pending Entero/Rhino (PCR) Pending Rhino/Enterovirus (ANDREW) SARS-CoV-2 (PCR) Pending SARS-CoV-2 RNA (RT-PCR) [facility] Test Comment 07/07/25 07/07/25 07/07/25 02:16 05:19 07:18 WBC 9.8 RBC 3.62 L Hgb 11.6 L Hct 34.5 L MCV 95.3 MCH 32.0 MCHC 33.6 RDW 13.4 Plt Count 80 L MPV 8.9 Immature Gran % (Auto) Not Reportable Neut % (Auto) Not Reportable Lymph % (Auto) Not Reportable Dewitt % (Auto) Not Reportable Eos % (Auto) Not Reportable Baso % (Auto) Not Reportable Lymph # (Auto) Not Reportable Dewitt # (Auto) Not Reportable Eos # (Auto) Not Reportable Baso # (Auto) Not Reportable Abs Immat Gran (auto) Not Reportable Absolute Neuts (auto) Not Reportable Absolute Nucleated RBC Not Reportable Total Counted 100 Neutrophils % (Manual) 87 H Band Neutrophils % 3 Lymphocytes % (Manual) 5.0 L Monocytes % (Manual) 5 Nucleated RBC % Not Reportable Abs Neuts (Manual) 8.82 H Abs Lymphs (Manual) 0.49 L Abs Monocytes (Manual) 0.49 Platelet Estimate Decreased % Immature Plt Fraction 3.5 Schistocytes None seen Sodium 135 L Potassium 3.5 Chloride 105 Carbon Dioxide 23 Anion Gap 7 BUN 18 Creatinine 1.04 Estim Creat Clear Calc 67 Estimated GFR > 60 Glucose 117 H POC Capillary Glucose 115 H Lactic Acid 2.4 H Calcium 8.1 L Total Bilirubin 1.5 H AST 193 H ALT 149 H Alkaline Phosphatase 54 Total Protein 5.6 L Albumin 3.1 L Urine Color Dark yellow Urine Appearance Cloudy H Urine pH 5.0 Ur Specific Mclain > 1.045 H Urine Protein 2+ H Urine Glucose (UA) Negative Urine Ketones 1+ H Ur Blood (Man) 2+ H Urine Nitrate Negative Urine Bilirubin 1+ H Urine Urobilinogen 1.0 Add Ur Microanalysis Reviewed Leukocyte Esterase Rfl Trace H Urine RBC 11-20 H Urine WBC 0-5 Ur Squamous Epith Cells Occasional Urine Bacteria None seen Urine Casts 6-10 Urine Mucus Present Nasal MRSA (PCR) Nasal RSV Type A (PCR) Cancelled Nasal RSV Type B (PCR) Cancelled Chlamy pneumoniae PCR Cancelled Adenovirus (PCR) Adenovirus DNA Cancelled Human Bocavirus (ANDREW) Cancelled B. pertussis DNA (PCR) B.parapertussis DNA PCR Coronavirus Type OC43 Cancelled Coronavirus OC43 (PCR) Coronavirus Type HKU1 Cancelled Coronavirus HKU1 (PCR) Coronavirus Type 229E Cancelled Coronavirus 229E (PCR) Coronavirus Type NL63 Cancelled Coronavirus NL63 (PCR) Human Metapneumovir PCR Cancelled Influenza A (H1) PCR Influenza A (PCR) Cancelled Influenza A (H1) RNA Cancelled Influ A (H1/09) PCR Influenza A (H3) PCR Cancelled Influenza Type A (PCR) Influenza Type B (PCR) Cancelled M. pneumoniae (PCR) M. pneumoniae DNA Cancelled Parainfluenza PCR Cancelled Parainfluenza 1 (PCR) Parainfluenza 2 (PCR) Cancelled Parainfluenza 3 (PCR) Parainfluenza 3 RNA (PCR) Cancelled Parainfluenza 4 (PCR) Cancelled RSV (PCR) Entero/Rhino (PCR) Rhino/Enterovirus (ANDREW) Cancelled SARS-CoV-2 (PCR) SARS-CoV-2 RNA (RT-PCR) Cancelled Misc Test Comment Cancelled telemetry reviewed demonstrated sinus tachycardia S CT of abdomen pelvis from outside facility demonstrated suboptimal quality but within exam limits no large central pulmonary embolism. CT findings suggestive of right lower lobe pneumonia and cholelithiasis with associated gallbladder of distension with acute cholecystitis most likely, nonspecific ill-defined hypodense 3.2 cm segment the left hepatic lobe non specific mesenteric lymphadenopathy measuring 13 mm in short axis scattered colonic diverticulosis without evidence of inflammation, fusiform dilatation of mid 8 ascending thoracic aorta measuring 4.1 cm Assessment and Plan Assessment and plan (1) Septic shock: Code(s): A41.9 - Sepsis, unspecified organism; R65.21 - Severe sepsis with septic shock Status: Acute (2) Right lower lobe pneumonia: Qualifiers: Pneumonia type: due to unspecified organism Qualified Code(s): J18.9 - Pneumonia, unspecified organism Code(s): J18.9 - Pneumonia, unspecified organism Status: Acute (3) Lactic acidosis: Code(s): E87.20 - Acidosis, unspecified Status: Acute (4) Scleral icterus: Code(s): R17 - Unspecified jaundice Status: Acute (5) Hypomagnesemia: Code(s): E83.42 - Hypomagnesemia Status: Acute (6) Hypokalemia: Code(s): E87.6 - Hypokalemia Status: Acute (7) Acute kidney injury: Code(s): N17.9 - Acute kidney failure, unspecified Status: Acute (8) Abnormal computed tomography of gallbladder: Code(s): R93.2 - Abnormal findings on diagnostic imaging of liver and biliary tract Status: Acute (9) Acute hypoxic respiratory failure: Code(s): J96.01 - Acute respiratory failure with hypoxia Status: Acute Plan Patient presents with septic shock. Septic shock due to right lower lobe pneumonia verses acute cholecystitis. Patient has associated acute hypoxic respiratory failure and acute kidney injury as well as transaminitis and mild hyperbilirubinemia noted on labs from outside facility. Patient been started on broad-spectrum antibiotic coverage with cefepime vanc and azithromycin. Patient had negative COVID, RSV and influenza PCR from outside facility. Will send extended respiratory viral panel for evaluation given patient's associated leukopenia. Will obtain blood cultures. The patient does have mild hyperbilirubinemia and mild scleral icterus and making acute cholecystitis possibility despite no reproducible abdominal pain but given the patient's preceding symptoms of abdominal distension gallbladder pathology not completely ruled out. Will obtain right upper quadrant ultrasound due to further evaluate. Will repeat a CBC, lactic acid and CMP with a.m. labs. Will wean Levophed to maintain maps of 65 and systolic blood pressures of 90. Will continue IV fluid hydration with normal saline at 100 mL an hour. Will monitor strict I&O's. Given the patient's urinary incontinence a Ac catheter was placed. Patient only had a on 150 mL of urine output at the time my evaluation. Patient has acute hypoxic respiratory failure will wean oxygen as tolerated. Repeat chest x-ray was obtained this a.m. and personally reviewed and interpreted. Central line was inappropriate position. Patient did have mild hypokalemia and mild hypo magnesium a on labs from outside facility and received subsequent placement. Will check Mag phos and potassium level with a.m. labs. Will avoid nephrotoxic medications given acute kidney injury. Acute kidney injury is likely due to hypovolemia and septic shock. 75 minutes critical care activities Due to a high probability of clinically significant, life threatening deterioration, the patient required my highest level of preparedness to intervene emergently and I personally spent this critical care time directly and personally managing the patient. This critical care time included obtaining a history; examining the patient; pulse oximetry; ordering and review of studies; arranging urgent treatment with development of a management plan; evaluation of patient's response to treatment; frequent reassessment; and discussions with other providers. It was exclusive of separately billable procedures and treating other patients and teaching time. Please see Assessment and Plan section and the rest of the note for further information on patient assessment and treatment. Quality VTE Prophylaxis VTE prophylaxis: pharmacologic ordered (Lovenox 40 mg subQ daily.) Hospitalist [facility] Advance Care Plan I have confirmed that the patient's Advanced Care Plan is present, code status is documented, or surrogate decision maker is listed in patient medical record.: Yes Medication Reconciliation I have utilized all available resources to obtain, update and review the patients current medications (includes all prescriptions, OTC, herbals, cannabis, and nutritional supplements).: Yes
[2025-07-07] MEDS: SODIUM CHLORIDE 0.9% IV 1,000 ML 100 ML IV CONT (01:00)
[2025-07-07] MEDS: Please enter patient height and weight for medication dosing 1 EACH XX (01:36)
[2025-07-07] MEDS: VANCOMYCIN HCL 1,000 MG in SODIUM CHLORIDE 0.9% IV 250 ML 250 MG IVPB (01:38)
[2025-07-07 02:42] LABS: Add Urine Microscopic? YES; Appearance Urine Cloudy (Clear); Glucose Urine UA Negative (Negative); Leukocyte Esterase Ur Trace LEU/UL (Negative); Need Manual Microscopic Reviewed; Nitrate Urine Negative (Negative); Specific Grav Ur > 1.045 (1.001-1.035)
[2025-07-07 03:26] LABS: MRSA (PCR) NOT DETECTED (NOT DETECTE)
[2025-07-07] MEDS: HYDROCORTISONE SODIUM SUCCINATE 100 MG/2 ML VIAL IV PUSH ×3 (05:18→21:33)
[2025-07-07 05:33] LABS: Hematocrit 34.5 % (42.0-52.0); Hemoglobin 11.6 g/dL (14.0-18.0); Immature Platelet Fraction Pct 3.5 % (0.9-11.2); Mean Corpuscular HGB Conc 33.6 g/dl (32-36); Mean Corpuscular Hemoglobin 32.0 pg (26-34); Mean Corpuscular Volume 95.3 fl (80-100); Red Blood Count 3.62 M/mm3 (4.6-6.20); White Blood Count 9.8 K/mm3 (4.5-10.0)
[2025-07-07 05:42] LABS: Alanine Aminotransferase 149 U/L (6-50); Albumin Level 3.1 g/dL (3.5-5.1); Alkaline Phosphatase 54 U/L (38-126); Anion Gap 7 mmol/L (4-12); Aspartate Amino Transferase 193 U/L (17-59); Bilirubin,Total 1.5 mg/dL (0.2-1.3); Blood Urea Nitrogen 18 mg/dL (9-20); Calcium 8.1 mg/dL (8.4-10.2); Carbon Dioxide 23 mmol/L (22-30); Chloride 105 mmol/L (98-107); Estimated CRCL calculation 67 ml/min; Estimated Glomerular Filt Rate > 60; Glucose 117 mg/dL (65-110); Potassium 3.5 mmol/L (3.4-5.0); Sodium 135 mmol/L (137-145); Total Protein 5.6 g/dL (6.3-8.2)
[2025-07-07 05:51] LABS: Platelet Count Result 80 k/mm3 (150-375)
[2025-07-07 05:54] LABS: Band Neutrophils Percent 3 % (0-6); Lymphocytes Absolute Manual 0.49 K/mm3 (1.1-4.5); Lymphocytes Percent Manual 5.0 % (18-44); Monocytes Absolute Manual 0.49 K/mm3 (0.1-0.90); Monocytes Percent Manual 5 % (3-9); Neutrophils Absolute Manual 8.82 K/mm3 (1.3-6.7); Neutrophils Percent Manual 87 % (46-73); Total Cells Counted 100
[2025-07-07 05:55] LABS: Schistocytes None Seen
--- NOTE | 2025-07-07 08:53 | P.CONIN_ITS ---
Assessment and Plan Assessment and plan (1) Septic shock: Code(s): A41.9 - Sepsis, unspecified organism; R65.21 - Severe sepsis with septic shock Status: Acute Assessment and Plan: Patient presented to the outside hospital in [facility] with complains of shortness of breath, abdominal bloating. -CTA chest abdomen and pelvis showed no pulmonary embolism, cholelithiasis with possible acute cholecystitis -patient was hypotensive at the outside hospital distal right receiving 30 mL/kg IV fluid bolus, central line was inserted and started on Levophed and transferred to the ICU for further manage -07/07: Patient currently off Levophed, -initial lactic acid was 5.7, lactic acid this morning is 2.4 -07/06: Started on cefepime, vancomycin, azithromycin -07/07: Blood cultures have been obtained (2) Right lower lobe pneumonia: Qualifiers: Pneumonia type: due to unspecified organism Qualified Code(s): J18.9 - Pneumonia, unspecified organism Code(s): J18.9 - Pneumonia, unspecified organism Status: Acute Assessment and Plan: Continue antibiotics as above, supplemental oxygen -respiratory panel will has been ordered and pending (3) Abnormal computed tomography of gallbladder: Code(s): R93.2 - Abnormal findings on diagnostic imaging of liver and biliary tract Status: Acute Assessment and Plan: CTA abdomen and pelvis at the outside hospital showed cholelithiasis with associated gallbladder wall distention with acute cholecystitis might be likely cause. -elevated LFTs and bilirubin -right upper quadrant ultrasound been ordered -will check hepatitis panel - Plan DVT prophylaxis: Lovenox Stress ulcer prophylaxis: Not indicated Nutrition: Carb consistent diabetic diet Code Status: Full code Critical Care Time Spent: 45 minutes Discussed with patient and his spouse at bedside and updated them with patient's condition and plan of care. I answered all questions Due to a high probability of clinically significant, life threatening deterioration, the patient required my highest level of preparedness to intervene emergently and I personally spent this critical care time directly and personally managing the patient. This critical care time included obtaining a history; examining the patient; pulse oximetry; ordering and review of studies; arranging urgent treatment with development of a management plan; evaluation of patient's response to treatment; frequent reassessment; and discussions with other providers. It was exclusive of separately billable procedures and treating other patients and teaching time. Please see Assessment and Plan section and the rest of the note for further information on patient assessment and treatment This dictation may have been done utilizing a voice recognition system. Attempts have been made to correct errors. However, there may be uncorrected grammatical, spelling, and recognitions errors present. 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 Recently they were in [place] for a vacation. Couple of days ago patient ate something anti compelling and felt his abdominally distended along with belching and passing gas. Also an episode of vomiting. At the outside hospital patient had a fever of 102.5. Was tachycardic, tachypneic in the 120s, hypotensive. Leukopenia with a WBC count at 1.2, 90% neutrophils and 2% bands. Thrombocytopenia with a platelet count of 111. Hemoglobin stable 14.1 at the outside facility. His initial lactic acid was 4.9 increased up to 5.7 despite receiving 30 mL/kg IV fluid bolus. Patient was started on Levophed, central line was inserted and patient was transferred to [facility] for further management. He was started on cefepime and vancomycin the outside hospital. CTA of the chest abdomen pelvis showed no large pulmonary embolism, right lower lobe pneumonia and cholelithiasis with associated gallbladder wall distention with acute cholecystitis might be likely cause. Bilirubin was 2.2,. COVID PCR is negative UA was negative for nitrates and leukocyte esterase or bacteria. Blood cultures were obtained at the outside hospital. Upon arrival to the ICU patient was started on azithromycin along with cefepime and vancomycin. Patient seen and examined this morning in the ICU, pleasant gentleman in no acute distress. Patient currently Off Levophed, blood pressures have been stable, afebrile, low urine output. WBC count is 9.8, lactic of 2.4. Bilirubin is 1.5, AST 193, ALT 149. Denies any shortness of breath, abdominal pain, nausea vomiting at this time. Patient states he does not smoke, drink alcohol or use illicit drugs. He is retired Review of Systems 2 Review of Systems: All systems reviewed & are unremarkable except as noted in HPI and below PMFSH Past Medical History Medical History (Updated 07/07/25 @ 09:09 by Jose Ramon Castro MD) Allergic rhinitis Body mass index [BMI] 33.0-33.9, adult (11/24/16) Cough due to CANDI inhibitor Erectile dysfunction due to arterial insufficiency Impaired glucose tolerance (oral) Prostate CA (~2019) HTN (hypertension) HLD (hyperlipidemia) Vitamin D deficiency disease Hyperglycemia Surgical History Surgical History (Updated 07/07/25 @ 02:27 by Asuncion Ruiz DO) History of tonsillectomy and adenoidectomy History of cardiac ablation for atrial fibrillation (~2023) Family History Family History Father Acute myocardial infarction, Onset Age: 83 Hypertension Asthma Sibling Hypertension Other Family history of cardiovascular disease Social History Social History (Updated 07/07/25 @ 02:31 by Asuncion Ruiz DO) Social History: Code status: Full code Surrogate decision maker: Smoking status: Former smoker Tobacco type: cigarettes Smoking end date: 04/24/88 Additional smoking assessment comments: 1 to 1.5 packs per day from [age]yo Alcohol intake: former Alcohol use details: Drinks 6 pack per day but quit at age 38 Substance use: never Substance use type: does not use Do You Feel Safe in your Home?: Yes Lack of Transportation: No Lack of Food: Never True Current Housing: I Have Housing Concerned About Future Housing: No Difficulty Paying Gas/Electric Bills: No Difficulty Paying for Meds: No Currently Unemployed: No Education: High School Diploma/GED Difficulty w/ Childcare or Family Care: No Living arrangements: with family Additional living arrangements comments: Lives with his of 49 years. They have 5 children. Occupation/Education: retired Additional occupation/education comments: He is retired from [employer]. Spiritual care concerns: No Meds Home Medications and Allergies Home Medications ?Medication ?Instructions ?Recorded ?Confirmed ?Type aspirin 81 mg tablet,delayed 81 mg PO DAILY 11/19/20 0 07/07/25 History release cholecalciferol (vitamin D3) 25 1,000 unit PO DAILY 07/07/25 History mcg (1,000 unit) tablet (Vitamin D3) cranberry 500 mg capsule 500 mg PO DAILY 11/19/20 History multivitamin 1 tablet PO DAILY 11/19/20 0 07/07/25 History fluticasone propionate 50 1 spray intranasal BID #16 g amber 07/08/22 07/07/25 Rx mcg/actuation nasal spray,suspension (Flonase Allergy Relief) sildenafil 100 mg tablet (Viagra) 100 mg PO DAILY PRN sexual 02/15/24 07/07/25 Rx activity #30 tabs metformin 500 mg tablet See Rx Instructions .Route 0 12/25/24 07/07/25 Rx .COMPLEX #90 tabs simvastatin 40 mg tablet See Rx Instructions .Route 0 03/27/25 07/07/25 Rx .COMPLEX #90 tabs losartan 100 mg tablet See Rx Instructions .Route 0 04/02/25 07/07/25 Rx .COMPLEX #90 tabs Allergies Allergy/AdvReac Type Severity Reaction Status Date / Time No Known Allergies Allergy Mild Verified 07/07/25 01:12 Vital Signs Vital Signs - 24 hr 07/07/25 00:25 07/07/25 00:40 07/07/25 00:40 Temperature 98.8 F Pulse Rate 100 100 Respiratory Rate 19 Blood Pressure 90/64 L 90/64 L Pulse Oximetry 96 91 Oxygen Delivery Nasal Cannula Oxygen Flow Rate 07/07/25 00:45 07/07/25 02:00 07/07/25 02:00 Temperature 98.6 F Pulse Rate 98 93 93 Respiratory Rate 27 H Blood Pressure 87/61 L 108/70 Pulse Oximetry 93 Oxygen Delivery Oxygen Flow Rate 07/07/25 02:00 07/07/25 03:30 07/07/25 04:00 Temperature Pulse Rate 93 95 Respiratory Rate Blood Pressure 108/70 102/66 Pulse Oximetry 96 Oxygen Delivery Nasal Cannula Oxygen Flow Rate 07/07/25 04:00 07/07/25 04:00 07/07/25 04:00 Temperature 100.3 F H Pulse Rate 94 97 94 Respiratory Rate 25 H Blood Pressure 122/87 122/87 Pulse Oximetry 96 Oxygen Delivery Oxygen Flow Rate 07/07/25 04:45 07/07/25 06:00 07/07/25 06:00 Temperature Pulse Rate 97 97 Respiratory Rate 29 H Blood Pressure 139/79 Pulse Oximetry 93 93 Oxygen Delivery High Flow Nasal Cannula Oxygen Flow Rate 13 07/07/25 06:00 07/07/25 06:00 07/07/25 08:00 Temperature 97.5 F L Pulse Rate 97 93 Respiratory Rate 22 H Blood Pressure 139/79 135/72 Pulse Oximetry 93 90 Oxygen Delivery High Flow Nasal Cannula Oxygen Flow Rate 6 Exam 2 Narrative: General: Pleasant gentleman in no acute distress HEENT:? Pupils equal reactive, sclerae is clear, moist oral mucosa Neck:? Supple Respiratory:? Coarse breath sounds bilaterally, decreased at bases, no wheezing, adequate air entry otherwise Cardiac:? S1-S2 normal, regular rate and rhythm Abdomen:? Soft, nontender, nondistended with normoactive bowel sounds Extremities:? No edema, palpable pedal pulses, Neuro:? Patient awake, alert, oriented x3, nonfocal, answers to questions appropriately and follows simple commands in all extremities Skin:? Warm and dry, no skin lesions noted Psych:? Normal mentation and affect Results Labs 07/07/25 05:19 07/07/25 05:19 Labs: Short CBC 07/07/25 Range/Units 05:19 WBC 9.8 (4.5-10.0) K/mm3 Hgb 11.6 L (14.0-18.0) g/dL Hct 34.5 L (42.0-52.0) % Plt Count 80 L (150-375) k/mm3 [facility] 07/07/25 05:19 Sodium 135 L Potassium 3.5 Chloride 105 Carbon Dioxide 23 BUN 18 Creatinine 1.04 Glucose 117 H Calcium 8.1 L Liver Function 07/07/25 Range/Units 05:19 Total Bilirubin 1.5 H (0.2-1.3) mg/dL AST 193 H (17-59) U/L ALT 149 H (6-50) U/L Alkaline Phosphatase 54 (38-126) U/L Albumin 3.1 L (3.5-5.1) g/dL Urine 07/07/25 Range/Units 02:16 Urine Color Dark yellow (Yellow) Urine Appearance Cloudy H (Clear) Urine pH 5.0 (5.0-9.0) Ur Specific Justice > 1.045 H (1.001-1.035) Urine Protein 2+ H (Negative) mg/dL Urine Glucose (UA) Negative (Negative) mg/dL Quality VTE Prophylaxis VTE prophylaxis: pharmacologic ordered Hospitalist MIPS Advance Care Plan I have confirmed that the patient's Advanced Care Plan is present, code status is documented, or surrogate decision maker is listed in patient medical record.: Yes Medication Reconciliation I have utilized all available resources to obtain, update and review the patients current medications (includes all prescriptions, OTC, herbals, cannabis, and nutritional supplements).: Yes
[2025-07-07] MEDS: CEFEPIME 2 GM in SODIUM CHLORIDE 0.9% IV 50 ML 100 ML IVPB ×2 (09:02→21:35)
[2025-07-07] MEDS: ALBUMIN HUMAN 25% 25 GM/100 ML 100 ML IVPB ×2 (09:08→12:06)
[2025-07-07] MEDS: POTASSIUM CHLORIDE 20 MEQ ER TABLET 40 MEQ PO (09:08)
[2025-07-07] MEDS: ACETAMINOPHEN 325 MG TABLET 650 MG PO ×2 (10:35→16:34)
[2025-07-07] MEDS: FUROSEMIDE INJ 40 MG/4 ML VIAL IV PUSH (10:57)
[2025-07-07 11:10] LABS: Hepatitis B Surface Antigen Negative (Negative)
[2025-07-07 11:16] LABS: HAV RESULT Negative (Negative); Hepatitis B Core IgM Result Negative (Negative)
[2025-07-07] MEDS: CENTRAL LINE FLUSH 10 ML IV PUSH ×2 (14:21→21:34)
[2025-07-07] MEDS: VANCOMYCIN 1,500 MG/NS 500 ML 1,500 MG/500 ML BAG 250 MG IVPB (15:12)
[2025-07-07 16:34] LABS: Hematocrit 34.6 % (42.0-52.0); Hemoglobin 11.4 g/dL (14.0-18.0); Immature Platelet Fraction Pct 3.8 % (0.9-11.2); Mean Corpuscular HGB Conc 32.9 g/dl (32-36); Mean Corpuscular Hemoglobin 31.5 pg (26-34); Mean Corpuscular Volume 95.6 fl (80-100); Platelet Count Result 64 k/mm3 (150-375); Red Blood Count 3.62 M/mm3 (4.6-6.20); White Blood Count 9.0 K/mm3 (4.5-10.0)
[2025-07-07 17:26] LABS: Alanine Aminotransferase 146 U/L (6-50); Albumin Level 3.4 g/dL (3.5-5.1); Alkaline Phosphatase 97 U/L (38-126); Anion Gap 10 mmol/L (4-12); Aspartate Amino Transferase 205 U/L (17-59); Bilirubin,Total 1.6 mg/dL (0.2-1.3); Blood Urea Nitrogen 23 mg/dL (9-20); CRP 29.8 mg/dL (<1.0); Calcium 7.9 mg/dL (8.4-10.2); Carbon Dioxide 21 mmol/L (22-30); Chloride 107 mmol/L (98-107); Creatine Kinase 817 U/L (55-170); Estimated CRCL calculation 57 ml/min; Estimated Glomerular Filt Rate 57; Glucose 104 mg/dL (65-110); Magnesium 2.2 mg/dL (1.6-2.3); Potassium 3.3 mmol/L (3.4-5.0); Sodium 138 mmol/L (137-145); Total Protein 5.9 g/dL (6.3-8.2)
[2025-07-07 18:12] LABS: Anisocytosis 1+; Band Neutrophils Percent 14 % (0-6); Lymphocytes Absolute Manual 0.36 K/mm3 (1.1-4.5); Lymphocytes Percent Manual 4.0 % (18-44); Metamyelocytes Percent 4 %; Monocytes Absolute Manual 0.36 K/mm3 (0.1-0.90); Monocytes Percent Manual 4 % (3-9); Neutrophils Absolute Manual 7.92 K/mm3 (1.3-6.7); Neutrophils Percent Manual 74 % (46-73); Schistocytes None Seen; Total Cells Counted 100
[2025-07-07 18:13] LABS: Toxic Granulation Present
[2025-07-07] MEDS: LACTATED RINGERS 1,000 ML 75 ML IV CONT (18:26)
[2025-07-07] MEDS: KCL 40 MEQ/WATER 100 ML 100 ML 25 ML IVPB (18:28)
[2025-07-07] MEDS: AZITHROMYCIN IV 500 MG in SODIUM CHLORIDE 0.9% IV 250 ML IVPB (22:04)
[2025-07-07 23:57] LABS: Alanine Aminotransferase 136 U/L (6-50); Albumin Level 3.4 g/dL (3.5-5.1); Alkaline Phosphatase 61 U/L (38-126); Anion Gap 11 mmol/L (4-12); Aspartate Amino Transferase 173 U/L (17-59); Bilirubin,Total 1.3 mg/dL (0.2-1.3); Blood Urea Nitrogen 28 mg/dL (9-20); Calcium 7.8 mg/dL (8.4-10.2); Carbon Dioxide 20 mmol/L (22-30); Chloride 109 mmol/L (98-107); Estimated CRCL calculation 56 ml/min; Estimated Glomerular Filt Rate 56; Glucose 134 mg/dL (65-110); Sodium 140 mmol/L (137-145); Total Protein 5.8 g/dL (6.3-8.2)
[2025-07-08] VITALS (38 sets, daily range): BP systolic 91–140; BP diastolic 58–92; PULSE 63–144; RESP 20–35; TEMP 36.9–39; O2SAT 88–97
[2025-07-08 00:07] LABS: Potassium 4.7 mmol/L (3.4-5.0)
[2025-07-08] MEDS: CENTRAL LINE FLUSH 10 ML IV PUSH ×3 (04:14→21:16)
[2025-07-08 04:28] LABS: Hematocrit 34.8 % (42.0-52.0); Hemoglobin 11.3 g/dL (14.0-18.0); Immature Platelet Fraction Pct 5.5 % (0.9-11.2); Mean Corpuscular HGB Conc 32.5 g/dl (32-36); Mean Corpuscular Hemoglobin 31.7 pg (26-34); Mean Corpuscular Volume 97.8 fl (80-100); Platelet Count Result 54 k/mm3 (150-375); Red Blood Count 3.56 M/mm3 (4.6-6.20); White Blood Count 13.8 K/mm3 (4.5-10.0)
[2025-07-08 04:40] LABS: Alanine Aminotransferase 131 U/L (6-50); Albumin Level 3.3 g/dL (3.5-5.1); Alkaline Phosphatase 65 U/L (38-126); Anion Gap 7 mmol/L (4-12); Aspartate Amino Transferase 149 U/L (17-59); Bilirubin,Total 0.9 mg/dL (0.2-1.3); Blood Urea Nitrogen 30 mg/dL (9-20); Calcium 7.8 mg/dL (8.4-10.2); Carbon Dioxide 22 mmol/L (22-30); Chloride 110 mmol/L (98-107); Estimated CRCL calculation 56 ml/min; Estimated Glomerular Filt Rate 56; Glucose 134 mg/dL (65-110); Magnesium 2.5 mg/dL (1.6-2.3); Potassium 4.2 mmol/L (3.4-5.0); Sodium 139 mmol/L (137-145); Total Protein 5.9 g/dL (6.3-8.2)
[2025-07-08 05:09] LABS: Thyroid Stimulating Hormone 0.633 uIU/mL (0.465-4.680)
[2025-07-08 05:13] LABS: CRP 34.9 mg/dL (<1.0)
[2025-07-08 05:21] LABS: Band Neutrophils Percent 7 % (0-6); Lymphocytes Absolute Manual 0.27 K/mm3 (1.1-4.5); Lymphocytes Percent Manual 2.0 % (18-44); Monocytes Absolute Manual 1.10 K/mm3 (0.1-0.90); Monocytes Percent Manual 8 % (3-9); Neutrophils Absolute Manual 12.42 K/mm3 (1.3-6.7); Neutrophils Percent Manual 83 % (46-73); Total Cells Counted 100
[2025-07-08 05:22] LABS: Anisocytosis 1+; Schistocytes None Seen
[2025-07-08 05:23] LABS: Burr Cells Occasional
[2025-07-08 06:19] LABS: Toxigenic C. Diff NEGATIVE (NEGATIVE)
[2025-07-08] MEDS: CEFEPIME 2 GM in SODIUM CHLORIDE 0.9% IV 50 ML 100 ML IVPB ×2 (08:31→20:44)
[2025-07-08] MEDS: LACTATED RINGERS 1,000 ML 75 ML IV CONT (08:31)
[2025-07-08] MEDS: ACETAMINOPHEN 325 MG TABLET 650 MG PO ×2 (08:32→13:35)
[2025-07-08] MEDS: FLUTICASONE PROPIONATE 0.05% NA SPR 16 GM BTL (*BKC) 1 SPRAY NASAL ×2 (08:32→20:45)
--- NOTE | 2025-07-08 08:47 | P.PNINT_ITS ---
Progress Note: A&P Assessment and Plan (1) Septic shock: Code(s): A41.9 - Sepsis, unspecified organism; R65.21 - Severe sepsis with septic shock Status: Acute Assessment and Plan: Patient presented to the outside hospital in [facility] with complains of shortness of breath, abdominal bloating. -CTA chest abdomen and pelvis showed no pulmonary embolism, cholelithiasis with possible acute cholecystitis -patient was hypotensive at the outside hospital distal right receiving 30 mL/kg IV fluid bolus, central line was inserted and started on Levophed and transferred to the ICU for further manage -07/07: Patient off Levophed. -, patient given albumin, this spike fevers of 106, tachycardic, tachypneic, pulmonary vascular congestion, Lasix 40 mg IV x1 was given along with Tylenol, restarting Levophed. Had to be started on high- flow therapy for hypoxia -initial lactic acid was 5.7, lactic acid this morning is 2.0 -07/06: Started on cefepime, vancomycin, azithromycin -07/07: Blood cultures have been obtained (blood cultures a call from outside hospital growing Gram-negative bacilli) 07/08: Off Levophed, on 2 L nasal cannula, adequate urine output lactic acid is 2.0, creatinine stable at 1.25. Echocardiogram has been ordered (2) Right lower lobe pneumonia: Qualifiers: Pneumonia type: due to unspecified organism Qualified Code(s): J18.9 - Pneumonia, unspecified organism Code(s): J18.9 - Pneumonia, unspecified organism Status: Acute Assessment and Plan: Continue antibiotics as above, supplemental oxygen -respiratory panel will has been ordered and pending (3) Abnormal computed tomography of gallbladder: Code(s): R93.2 - Abnormal findings on diagnostic imaging of liver and biliary tract Status: Acute Assessment and Plan: CTA abdomen and pelvis at the outside hospital showed cholelithiasis with associated gallbladder wall distention with acute cholecystitis might be likely cause. -elevated LFTs and bilirubin -07/07: RUQ ultrasound done, pending report -hepatitis panel is negative Plan DVT prophylaxis: Lovenox Stress ulcer prophylaxis: Not indicated Nutrition: Clear liquid diet, advance to full liquid as tolerated Code Status: Full code Critical Care Time Spent: 35 minutes Discussed with patient and his spouse at bedside and updated them with patient's condition and plan of care. I answered all questions Due to a high probability of clinically significant, life threatening deterioration, the patient required my highest level of preparedness to intervene emergently and I personally spent this critical care time directly and personally managing the patient. This critical care time included obtaining a history; examining the patient; pulse oximetry; ordering and review of studies; arranging urgent treatment with development of a management plan; evaluation of patient's response to treatment; frequent reassessment; and discussions with other providers. It was exclusive of separately billable procedures and treating other patients and teaching time. Please see Assessment and Plan section and the rest of the note for further information on patient assessment and treatment This dictation may have been done utilizing a voice recognition system. Attempts have been made to correct errors. However, there may be uncorrected grammatical, spelling, and recognitions errors present. Subjective Date/time seen: 07/08/25 08:47 Interval history: Reason for consult: Septic shock shortness on breath, pneumonia, abdominal bloating, gram negative bacteremia 07/08/2025: Patient seen examined the ICU, is awake, alert, oriented x3, denies any chest pain shortness shortness of breath, abdominal pain, nausea vomiting. Has been afebrile overnight, hemodynamically stable, off Levophed, on 2 L nasal cannula with adequate O2 sats. Urine output has been adequate. Lactic acid has normalized, LFTs trending down. Thrombocytopenia with platelets of 54 Review of Systems Review of Systems: All systems reviewed & are unremarkable except as noted in HPI and below Exam Narrative: General: Pleasant gentleman in no acute distress HEENT:? Pupils equal reactive, sclerae is clear, moist oral mucosa Neck:? Supple Respiratory:? Coarse breath sounds bilaterally, decreased at bases, no wheezing, adequate air entry otherwise Cardiac:? S1-S2 normal, regular rate and rhythm Abdomen:? Soft, nontender, nondistended with normoactive bowel sounds Extremities:? No edema, palpable pedal pulses, Neuro:? Patient awake, alert, oriented x3, nonfocal, answers to questions appropriately and follows simple commands in all extremities Skin:? Warm and dry, no skin lesions noted Psych:? Normal mentation and affect Objective Data Vital Signs Vital Signs: Vital Signs - 24 hr 07/07/25 10:00 07/07/25 10:00 07/07/25 10:35 Temperature 99.2 F 101.3 F H Pulse Rate 95 96 Respiratory Rate 35 H Blood Pressure 121/70 Pulse Oximetry 93 Oxygen Delivery Oxygen Flow Rate Fraction of Inspired Oxygen 07/07/25 11:07 07/07/25 11:30 07/07/25 11:30 Temperature 106 F H 106 F H Pulse Rate 134 H 125 H 125 H Respiratory Rate 38 H 46 H 31 H Blood Pressure 129/55 L 93/57 L Pulse Oximetry 94 93 93 Oxygen Delivery High Flow Therapy with Na High Flow Nasal Cannula Oxygen Flow Rate 60 10 Fraction of Inspired Oxygen 80 07/07/25 11:35 07/07/25 11:45 07/07/25 11:46 Temperature 105.9 F H 105.1 F H Pulse Rate 109 H 109 H Respiratory Rate 29 H 26 H Blood Pressure 86/59 L Pulse Oximetry 96 95 Oxygen Delivery High Flow Therapy with Na Oxygen Flow Rate 60 Fraction of Inspired Oxygen 80 07/07/25 12:00 07/07/25 12:00 07/07/25 12:00 Temperature Pulse Rate 103 H 102 H Respiratory Rate Blood Pressure 88/60 L Pulse Oximetry 98 Oxygen Delivery High Flow Therapy with Na Oxygen Flow Rate 60 Fraction of Inspired Oxygen 80 07/07/25 13:00 07/07/25 13:00 07/07/25 14:00 Temperature 103.8 F H Pulse Rate 90 93 93 Respiratory Rate 32 H Blood Pressure 100/63 100/63 94/63 L Pulse Oximetry 98 Oxygen Delivery Oxygen Flow Rate Fraction of Inspired Oxygen 07/07/25 14:00 07/07/25 14:00 07/07/25 15:00 Temperature 102.5 F H 102.1 F H Pulse Rate 93 97 91 Respiratory Rate 22 H 28 H Blood Pressure 94/63 L 92/53 L Pulse Oximetry 98 97 Oxygen Delivery Oxygen Flow Rate Fraction of Inspired Oxygen 07/07/25 15:00 07/07/25 16:00 07/07/25 16:00 Temperature 102.1 F H Pulse Rate 90 96 Respiratory Rate 29 H Blood Pressure 82/60 L 92/62 L Pulse Oximetry 99 94 Oxygen Delivery High Flow Therapy with Na Oxygen Flow Rate 50 Fraction of Inspired Oxygen 65 07/07/25 16:00 07/07/25 16:00 07/07/25 16:11 Temperature Pulse Rate 96 95 98 Respiratory Rate 26 H Blood Pressure 92/62 L Pulse Oximetry 96 Oxygen Delivery Oxygen Flow Rate 50 Fraction of Inspired Oxygen 65 07/07/25 16:34 07/07/25 17:00 07/07/25 17:34 Temperature 102.3 F H 102.0 F H 100.8 F H Pulse Rate 99 Respiratory Rate 29 H Blood Pressure 107/68 Pulse Oximetry 94 Oxygen Delivery Oxygen Flow Rate Fraction of Inspired Oxygen 07/07/25 18:00 07/07/25 18:00 07/07/25 18:00 Temperature 100.8 F H Pulse Rate 93 91 90 Respiratory Rate 28 H Blood Pressure 103/71 103/71 Pulse Oximetry 94 Oxygen Delivery Oxygen Flow Rate Fraction of Inspired Oxygen 07/07/25 19:00 07/07/25 19:00 07/07/25 19:00 Temperature 100.2 F H 100.2 F H Pulse Rate 86 85 85 Respiratory Rate 25 H 25 H Blood Pressure 96/71 L 96/71 L 96/71 L Pulse Oximetry 92 92 Oxygen Delivery Oxygen Flow Rate Fraction of Inspired Oxygen 07/07/25 20:00 07/07/25 20:00 07/07/25 20:00 Temperature 99.6 F Pulse Rate 76 76 76 Respiratory Rate 24 H Blood Pressure 94/61 L 94/61 L Pulse Oximetry 97 Oxygen Delivery Oxygen Flow Rate Fraction of Inspired Oxygen 07/07/25 20:00 07/07/25 20:07 07/07/25 21:00 Temperature Pulse Rate 74 77 Respiratory Rate 26 H Blood Pressure 96/72 L Pulse Oximetry 97 97 Oxygen Delivery High Flow Therapy with Na High Flow Therapy with Na Oxygen Flow Rate 50 50 Fraction of Inspired Oxygen 65 55 07/07/25 21:00 07/07/25 21:30 07/07/25 21:45 Temperature 98.9 F Pulse Rate 76 78 77 Respiratory Rate 24 H Blood Pressure 96/72 L 107/80 100/73 Pulse Oximetry 94 Oxygen Delivery Oxygen Flow Rate Fraction of Inspired Oxygen 07/07/25 22:00 07/07/25 22:00 07/07/25 22:00 Temperature 98.4 F Pulse Rate 72 72 72 Respiratory Rate 24 H Blood Pressure 105/67 105/67 Pulse Oximetry 95 Oxygen Delivery Oxygen Flow Rate Fraction of Inspired Oxygen 07/07/25 22:15 07/07/25 23:00 07/07/25 23:00 Temperature 98.7 F Pulse Rate 73 83 83 Respiratory Rate 25 H Blood Pressure 110/77 103/73 103/73 Pulse Oximetry 95 Oxygen Delivery Oxygen Flow Rate Fraction of Inspired Oxygen 07/07/25 23:15 07/07/25 23:20 07/07/25 23:30 Temperature Pulse Rate 84 74 79 Respiratory Rate 18 Blood Pressure 115/76 96/75 L Pulse Oximetry 95 Oxygen Delivery High Flow Therapy with Na Oxygen Flow Rate 50 Fraction of Inspired Oxygen 50 07/07/25 23:47 07/08/25 00:00 07/08/25 00:00 Temperature 98.6 F Pulse Rate 74 74 Respiratory Rate 18 25 H Blood Pressure 96/66 L Pulse Oximetry 95 95 95 Oxygen Delivery High Flow Therapy with Na High Flow Therapy with Na Oxygen Flow Rate 45 45 Fraction of Inspired Oxygen 50 50 07/08/25 00:00 07/08/25 00:00 07/08/25 01:00 Temperature 98.5 F Pulse Rate 74 73 69 Respiratory Rate 24 H Blood Pressure 96/66 L 93/68 L Pulse Oximetry 97 Oxygen Delivery Oxygen Flow Rate Fraction of Inspired Oxygen 07/08/25 01:00 07/08/25 02:00 07/08/25 02:00 Temperature 98.5 F Pulse Rate 69 67 67 Respiratory Rate 24 H Blood Pressure 93/68 L 98/69 L Pulse Oximetry 97 Oxygen Delivery Oxygen Flow Rate Fraction of Inspired Oxygen 07/08/25 02:00 07/08/25 02:02 07/08/25 03:00 Temperature 98.7 F Pulse Rate 76 76 74 Respiratory Rate 20 23 H Blood Pressure 98/69 L 103/79 Pulse Oximetry 97 95 Oxygen Delivery High Flow Therapy with Na Oxygen Flow Rate 40 Fraction of Inspired Oxygen 40 07/08/25 03:00 07/08/25 03:10 07/08/25 04:00 Temperature Pulse Rate 74 80 Respiratory Rate Blood Pressure 103/79 Pulse Oximetry 95 Oxygen Delivery Nasal Cannula Oxygen Flow Rate 4 Fraction of Inspired Oxygen 07/08/25 04:00 07/08/25 04:00 07/08/25 04:00 Temperature 98.8 F Pulse Rate 80 80 Respiratory Rate 25 H Blood Pressure 106/75 106/75 Pulse Oximetry 94 94 Oxygen Delivery Nasal Cannula Oxygen Flow Rate 3 Fraction of Inspired Oxygen 07/08/25 05:00 07/08/25 05:00 07/08/25 06:00 Temperature 98.7 F 98.8 F Pulse Rate 63 63 66 Respiratory Rate 24 H 24 H Blood Pressure 104/76 104/76 91/75 L Pulse Oximetry 95 92 Oxygen Delivery Oxygen Flow Rate Fraction of Inspired Oxygen 07/08/25 06:00 07/08/25 06:00 07/08/25 06:00 Temperature Pulse Rate 66 66 64 Respiratory Rate 20 Blood Pressure 91/75 L Pulse Oximetry 92 Oxygen Delivery Nasal Cannula Oxygen Flow Rate 2 Fraction of Inspired Oxygen 07/08/25 07:00 07/08/25 07:00 07/08/25 07:35 Temperature 98.5 F Pulse Rate 63 63 Respiratory Rate 23 H Blood Pressure 97/69 L 97/69 L Pulse Oximetry 93 96 Oxygen Delivery Nasal Cannula Oxygen Flow Rate 2 Fraction of Inspired Oxygen 07/08/25 08:00 07/08/25 08:21 Temperature 98.6 F Pulse Rate 69 65 Respiratory Rate 23 H 20 Blood Pressure 105/81 Pulse Oximetry 94 93 Oxygen Delivery Nasal Cannula Oxygen Flow Rate 2 Fraction of Inspired Oxygen Intake/Output Intake/Output: Intake & Output 07/05/25 07/06/25 07/07/25 07/08/25 23:59 23:59 23:59 23:59 Intake Total 1436.9 1030 Output Total 1400 450 Balance 36.9 580 Meds/Results Medications: Active Medications Generic Name Dose Route Start Last Admin Trade Name Freq PRN Reason Stop Dose Admin Acetaminophen 650 mg 07/06/25 22:57 07/08/25 08:32 Acetaminophen 325 Mg Tablet PO 650 mg Q4H PRN Administration Mild Pain (1-3) or Fever Al Hydrox/Mg Hydrox/Simethicone 30 ml 07/06/25 22:57 Mag Hydrox/Al Hydrox/Simeth 30 Ml Udc PO QID PRN Dyspepsia Bisacodyl 5 mg 07/06/25 22:57 Bisacodyl 5 Mg Tablet Ec PO DAILY PRN Constipation Dextrose 12.5 gm 07/06/25 23:18 Dextrose 50% 25 Gm/50 Ml Syringe IV PUSH PRN PRN Hypoglycemia Protocol Enoxaparin Sodium 40 mg 07/07/25 09:00 07/08/25 07:47 Enoxaparin 40 Mg/0.4 Ml Syringe SUB-Q Not Given DAILY XENIA Fluticasone Propionate 1 spray 07/07/25 09:00 07/08/25 08:32 Fluticasone Propionate 0.05% Na Spr 16 Gm Btl (*Bkc) NASAL 1 spray Q12HR XENIA Administration Glucagon 1 mg 07/06/25 23:18 Glucagon For Inj 1 Mg Vial IM PRN PRN Hypoglycemia Protocol Glucose 15 gm 07/06/25 23:18 Glucose Oral Gel 15 Gm Of Glucse In 37.5 Gm Tube PO PRN PRN Hypoglycemia Protocol Cefepime HCl 2 gm/ Sodium 50 mls @ 100 mls/hr 07/07/25 09:00 07/08/25 08:31 Chloride IVPB 100 mls/hr Q12H XENIA Administration Azithromycin 500 mg/ Sodium 250 mls @ 250 mls/hr 07/07/25 22:00 07/07/25 23:04 Chloride IVPB 07/10/25 22:59 Infused Q24H XENIA Infusion Dextrose 1,000 mls @ 100 mls/hr 07/06/25 23:18 Dextrose 5% 1,000 Ml IVPB PRN PRN Hypoglycemia Protocol Norepinephrine Bitartrate 8 mg in 250 mls @ 0 mls/hr 07/07/25 00:45 07/08/25 07:00 Levophed 8 Mg/D5w 250 Ml IV CONT 0 mcg/min .Q0M XENIA 0 mls/hr Protocol Titration 0 MCG/MIN Vancomycin HCl 1,500 mg in 500 mls @ 250 mls/hr 07/07/25 15:00 07/07/25 17:15 Vancomycin 1,500 Mg/Ns 500 Ml IVPB Infused Q18H XENIA Infusion Ibuprofen 400 mg/ Sodium 104 mls @ 208 mls/hr 07/07/25 17:27 Chloride IVPB Q8H PRN Pain Rated 4-6 Lactated Ringer's 1,000 mls @ 75 mls/hr 07/08/25 07:20 07/08/25 08:31 Lr - Lactated Ringers Iv IV CONT 07/08/25 20:39 75 mls/hr .[id number] XENIA Administration Insulin Aspart 3 - 6 units 07/07/25 08:00 07/08/25 08:31 Insulin Aspart (*Bkc) 100 Units/Ml SUB-Q Not Given TIDWM XENIA Protocol Ondansetron HCl 4 mg 07/06/25 22:57 Ondansetron Inj 4 Mg/2 Ml Vial IV PUSH Q6H PRN Nausea And Vomiting Perflutren Lipid Microsphere 0 ml 07/08/25 07:18 Perflutren Lipid Microspheres 1.5 Ml Vial Diluted To 10 Ml Total Volume IV PUSH 07/11/25 07:18 ONCE PRN adequate visualization Protocol Sodium Chloride 10 ml 07/07/25 14:00 07/08/25 04:14 Central Line Flush IV PUSH 10 ml Q8HR XENIA Administration Sodium Chloride 20 ml 07/07/25 06:38 Central Line Flush IV PUSH PRN PRN after blood draws Labs Labs: Laboratory Results - last 24 hr 07/07/25 07/07/25 07/07/25 05:19 12:10 16:20 WBC RBC Hgb Hct MCV MCH MCHC RDW Plt Count MPV Immature Gran % (Auto) Neut % (Auto) Lymph % (Auto) [place] % (Auto) Eos % (Auto) Baso % (Auto) Lymph # (Auto) [place] # (Auto) Eos # (Auto) Baso # (Auto) Abs Immat Gran (auto) Absolute Neuts (auto) Absolute Nucleated RBC Total Counted Neutrophils % (Manual) Band Neutrophils % Lymphocytes % (Manual) Monocytes % (Manual) Metamyelocytes % Nucleated RBC % Abs Neuts (Manual) Abs Lymphs (Manual) Abs Monocytes (Manual) Toxic Granulation Platelet Estimate % Immature Plt Fraction Anisocytosis [place] Cells Schistocytes Sodium Potassium Chloride Carbon Dioxide Anion Gap BUN Creatinine Estim Creat Clear Calc Estimated GFR Glucose POC Capillary Glucose 130 H 96 Lactic Acid Calcium Phosphorus Magnesium Total Bilirubin AST ALT Alkaline Phosphatase Total Creatine Kinase C-Reactive Protein Total Protein Albumin TSH C. difficile (PCR) Hepatitis A IgM Ab Negative Hep Bs Antigen Negative Hep B Core IgM Ab Negative Hepatitis C Ab Screen Negative 07/07/25 07/07/25 07/07/25 16:23 19:27 22:01 WBC 9.0 RBC 3.62 L Hgb 11.4 L Hct 34.6 L MCV 95.6 MCH 31.5 MCHC 32.9 RDW 13.8 Plt Count 64 L MPV 9.3 Immature Gran % (Auto) Not Reportable Neut % (Auto) Not Reportable Lymph % (Auto) Not Reportable [place] % (Auto) Not Reportable Eos % (Auto) Not Reportable Baso % (Auto) Not Reportable Lymph # (Auto) Not Reportable [place] # (Auto) Not Reportable Eos # (Auto) Not Reportable Baso # (Auto) Not Reportable Abs Immat Gran (auto) Not Reportable Absolute Neuts (auto) Not Reportable Absolute Nucleated RBC Not Reportable Total Counted 100 Neutrophils % (Manual) 74 H Band Neutrophils % 14 H Lymphocytes % (Manual) 4.0 L Monocytes % (Manual) 4 Metamyelocytes % 4 Nucleated RBC % Not Reportable Abs Neuts (Manual) 7.92 H Abs Lymphs (Manual) 0.36 L Abs Monocytes (Manual) 0.36 Toxic Granulation Present Platelet Estimate Decreased % Immature Plt Fraction 3.8 Anisocytosis 1+ [place] Cells Schistocytes None seen Sodium 138 Potassium 3.3 L Chloride 107 Carbon Dioxide 21 L Anion Gap 10 BUN 23 H Creatinine 1.24 Estim Creat Clear Calc 57 Estimated GFR 57 L Glucose 104 POC Capillary Glucose 126 H Lactic Acid 2.8 H 2.2 H Calcium 7.9 L Phosphorus 2.7 Magnesium 2.2 Total Bilirubin 1.6 H AST 205 H ALT 146 H Alkaline Phosphatase 97 Total Creatine Kinase 817 H C-Reactive Protein 29.8 H Total Protein 5.9 L Albumin 3.4 L TSH C. difficile (PCR) Hepatitis A IgM Ab Hep Bs Antigen Hep B Core IgM Ab Hepatitis C Ab Screen 07/07/25 07/08/25 07/08/25 23:09 04:14 04:29 WBC 13.8 H RBC 3.56 L Hgb 11.3 L Hct 34.8 L MCV 97.8 MCH 31.7 MCHC 32.5 RDW 14.0 Plt Count 54 L MPV 9.3 Immature Gran % (Auto) Not Reportable Neut % (Auto) Not Reportable Lymph % (Auto) Not Reportable [place] % (Auto) Not Reportable Eos % (Auto) Not Reportable Baso % (Auto) Not Reportable Lymph # (Auto) Not Reportable [place] # (Auto) Not Reportable Eos # (Auto) Not Reportable Baso # (Auto) Not Reportable Abs Immat Gran (auto) Not Reportable Absolute Neuts (auto) Not Reportable Absolute Nucleated RBC Not Reportable Total Counted 100 Neutrophils % (Manual) 83 H Band Neutrophils % 7 H Lymphocytes % (Manual) 2.0 L Monocytes % (Manual) 8 Metamyelocytes % Nucleated RBC % Not Reportable Abs Neuts (Manual) 12.42 H Abs Lymphs (Manual) 0.27 L Abs Monocytes (Manual) 1.10 H Toxic Granulation Platelet Estimate Decreased % Immature Plt Fraction 5.5 Anisocytosis 1+ [place] Cells Occasional Schistocytes None seen Sodium 140 139 Potassium 4.7 4.2 Chloride 109 H 110 H Carbon Dioxide 20 L 22 Anion Gap 11 7 BUN 28 H 30 H Creatinine 1.25 1.25 Estim Creat Clear Calc 56 56 Estimated GFR 56 L 56 L Glucose 134 H 134 H POC Capillary Glucose Lactic Acid 2.0 Calcium 7.8 L 7.8 L Phosphorus 3.6 Magnesium 2.5 H Total Bilirubin 1.3 0.9 AST 173 H 149 H ALT 136 H 131 H Alkaline Phosphatase 61 65 Total Creatine Kinase C-Reactive Protein 34.9 H Total Protein 5.8 L 5.9 L Albumin 3.4 L 3.3 L TSH 0.633 C. difficile (PCR) Negative Hepatitis A IgM Ab Hep Bs Antigen Hep B Core IgM Ab Hepatitis C Ab Screen 07/08/25 08:29 WBC RBC Hgb Hct MCV MCH MCHC RDW Plt Count MPV Immature Gran % (Auto) Neut % (Auto) Lymph % (Auto) [place] % (Auto) Eos % (Auto) Baso % (Auto) Lymph # (Auto) [place] # (Auto) Eos # (Auto) Baso # (Auto) Abs Immat Gran (auto) Absolute Neuts (auto) Absolute Nucleated RBC Total Counted Neutrophils % (Manual) Band Neutrophils % Lymphocytes % (Manual) Monocytes % (Manual) Metamyelocytes % Nucleated RBC % Abs Neuts (Manual) Abs Lymphs (Manual) Abs Monocytes (Manual) Toxic Granulation Platelet Estimate % Immature Plt Fraction Anisocytosis [place] Cells Schistocytes Sodium Potassium Chloride Carbon Dioxide Anion Gap BUN Creatinine Estim Creat Clear Calc Estimated GFR Glucose POC Capillary Glucose 101 Lactic Acid Calcium Phosphorus Magnesium Total Bilirubin AST ALT Alkaline Phosphatase Total Creatine Kinase C-Reactive Protein Total Protein Albumin TSH C. difficile (PCR) Hepatitis A IgM Ab Hep Bs Antigen Hep B Core IgM Ab Hepatitis C Ab Screen Quality VTE Prophylaxis VTE prophylaxis: pharmacologic ordered
[2025-07-08] MEDS: VANCOMYCIN 1,500 MG/NS 500 ML 1,500 MG/500 ML BAG 250 MG IVPB ×2 (09:59→22:12)
[2025-07-08] MEDS: FUROSEMIDE INJ 40 MG/4 ML VIAL IV PUSH (13:37)
[2025-07-08] MEDS: IBUPROFEN IV 400 MG in SODIUM CHLORIDE 0.9% IV 100 ML 208 MG IVPB (13:42)
[2025-07-08] MEDS: METOPROLOL TARTRATE INJ 5 MG/5 ML VIAL 2.5 MG IV PUSH (13:55)
[2025-07-08] MEDS: AZITHROMYCIN IV 500 MG in SODIUM CHLORIDE 0.9% IV 250 ML IVPB (21:15)
[2025-07-09] VITALS (30 sets, daily range): BP systolic 89–119; BP diastolic 59–85; PULSE 74–114; RESP 16–33; TEMP 36.7–39; O2SAT 90–100
--- NOTE | 2025-07-09 | ECHO_ITS ---
Patient Info Name: Van Young Age: 74 years : 1950 Gender: Male Ht: 71 in Wt: 234 lbs BSA: 2.34 m2 HR: 84 bpm BP: 119 / 81 mmHg Heart Rhythm: Sinus Rhythm Technical Quality: Good Exam Date: 07/09/2025 10:04 AM Patient Status: I Admit Date: 07/07/2025 Exam Type: CA echo doppler color flow Complete two-dimensional, color flow and Doppler transthoracic echocardiogram is performed. Staff Referring Physician: Asuncion Ruiz DO Commercial Credit Reviewer: Luis Alberto Negro III Attending Provider: Asuncion Ruiz DO Summary 1. Complete two-dimensional, color flow and Doppler transthoracic echocardiogram is performed. 2. Left ventricular chamber dimension is mildly enlarged. 3. Left ventricular systolic function is severely reduced, estimated at 25-30. 4. There is mildly increased left ventricular wall thickness. 5. The left ventricular diastolic function is grade I diastolic dysfunction. 6. Right ventricular systolic function is reduced. 7. Left atrial chamber dimension is mildly enlarged. 8. Right atrial chamber dimension is mildly enlarged. 9. There is mild to moderate mitral valve regurgitation. 10. There is mild tricuspid valve regurgitation. 11. Mild pulmonary hypertension, estimated pulmonary arterial systolic pressure is 40 mmHg. 12. The aortic root size at the sinus of Valsalva is mildly dilated. Left Ventricle Left ventricular chamber dimension is mildly enlarged. Left ventricular systolic function is severely reduced, estimated at 25-30. There is mildly increased left ventricular wall thickness. The left ventricular diastolic function is grade I diastolic dysfunction. Right Ventricle Right ventricular chamber dimension is normal. Right ventricular systolic function is reduced. Left Atria Left atrial chamber dimension is mildly enlarged. Right Atria Right atrial chamber dimension is mildly enlarged. Atrial Septum Intact interatrial septum visualized by color flow imaging. Aortic Valve The aortic valve is trileaflet. There is mild aortic valve sclerosis. There is no aortic valve stenosis. There is trace aortic valve regurgitation. Pulmonic Valve The pulmonic valve is normal. There is no pulmonic valve stenosis. There is trace pulmonic regurgitation. Mitral Valve The mitral valve has normal leaflets. There is no mitral valve stenosis. There is mild to moderate mitral valve regurgitation. Tricuspid Valve The tricuspid valve leaflets are normal. There is no significant tricuspid valve stenosis. There is mild tricuspid valve regurgitation. Mild pulmonary hypertension, estimated pulmonary arterial systolic pressure is 40 mmHg. Pericardium/Pleural The pericardium appears normal. There is trivial pericardial effusion. Inferior Vena Cava Dilated inferior vena cava with <50% collapse upon inspiration consistent with elevated right atrial pressure, 15 mmHg. Aorta The aortic root size at the sinus of Valsalva is mildly dilated. Left Ventricular Outflow Tract Name Value Normal LVOT 2D LVOT Diameter 2.3 cm LVOT Doppler LVOT Peak Velocity 83 cm/s LVOT Peak Gradient 3 mmHg LVOT Mean Gradient 2 mmHg LVOT VTI 14 cm LVOT VTI/AV VTI Ratio 0.7 LVOT Stroke Volume 59 ml LVOT CO 15.5 l/min LVOT CI 6.6 l/min/m2 Pulmonic Valve Name Value Normal PV Doppler PV Peak Velocity 77 cm/s PV Peak Gradient 2 mmHg PV Mean Gradient 1 mmHg Mitral Valve Name Value Normal MV Doppler MV Peak Gradient 3 mmHg MV Mean Gradient 1 mmHg MV Area (Cont Eq VTI) 2.9 cm2 MV Regurgitation Doppler MR Peak Gradient 71 mmHg MV Diastolic Function MV E Peak Velocity 66 cm/s MV A Peak Velocity 94 cm/s MV E/A 0.7 MV Decel Time (PW) 308 ms MV Annular TDI MV E/e' (Septal) 14.6 MV E/e' (Lateral) 9.9 MV E/e' (Average) 12.2 Tricuspid Valve Name Value Normal TV Regurgitation Doppler TR Peak Velocity 249 cm/s TR Peak Gradient 25 mmHg Estimated PAP/RSVP RA Pressure 15 mmHg <=5 PA Systolic Pressure 40 mmHg <36 RV Systolic Pressure 40 mmHg <36 TV Annular TDI TV Lateral Keri s' Velocity 13.8 cm/s >=9.5 Aortic Valve Name Value Normal AV Doppler AV Peak Velocity 129 cm/s AV Peak Gradient 7 mmHg AV Mean Gradient 4 mmHg AV VTI 20 cm AV Area (Cont Eq VTI) 2.9 cm2 >=3.0 AV Area (Cont Eq Jelani) 2.8 cm2 AV DI (Jelani) 0.64 AV Regurgitation 2D LVOT Area 4.3 cm2 Ventricles Name Value Normal LV Dimensions 2D/MM IVS Diastolic Thickness (2D) 0.9 cm 0.6-1.0 LVID Diastole (2D) 5.7 cm 4.2-5.8 LVIW Diastolic Thickness (2D) 1.0 cm 0.6-1.0 LVID Systole (2D) 5.2 cm 2.5-4.0 LVOT Diameter 2.3 cm LV Mass (2D Cubed) 221.81 g 88.00-224.00 LV Mass Index (2D Cubed) 95 g/m2 49-115 Relative Wall Thickness (2D) 0.36 <=0.42 LV Fractional Shortening/Ejection Fraction 2D/MM LV Fractional Shortening (2D) 10 % 25-43 LV EF (2D Teichholz) 21 % LV Diastolic Volume (4C MOD) 171 ml LV EF (4C MOD) 36 % LV Diastolic Volume (2C MOD) 130 ml LV EF (2C MOD) 31 % LV Diastolic Volume (BP MOD) 150 ml 62-150 LV Diastolic Volume Index (BP MOD) 64 ml/m2 34-74 LV Systolic Volume (BP MOD) 99 ml 21-61 LV Systolic Volume Index (BP MOD) 42 ml/m2 11-31 LV EF (BP MOD) 34 % 52-72 LV Diastolic Length (4C) 9.1 cm LV Systolic Length (4C) 8.3 cm LV Stroke Volume (4C MOD) 62 ml Atria Name Value Normal LA Dimensions LA Volume (4C A-L) 54 ml LA Volume (BP A-L) 62 ml RA Dimensions RA Systolic Major [place] Length (4C) 6.3 cm 2.1-2.7 RA Area (4C) 21.7 cm2 <=18.0 Report Signatures
[2025-07-09 05:58] LABS: Hematocrit 36.3 % (42.0-52.0); Hemoglobin 11.7 g/dL (14.0-18.0); Immature Granulocyte Percent A 0.9 % (0-0.5); Immature Platelet Fraction Pct 7.6 % (0.9-11.2); Lymphocytes Absolute Auto 0.36 K/mm3 (0.9-3.2); Mean Corpuscular HGB Conc 32.2 g/dl (32-36); Mean Corpuscular Hemoglobin 31.6 pg (26-34); Mean Corpuscular Volume 98.1 fl (80-100); Nucleated Red Blood Cells Absolute Auto 0.000 K/mm3 (0.0-0.012); Nucleated Red Blood Cells Perc 0.0 % (0.0-0.2); Platelet Count Result 38 k/mm3 (150-375); Red Blood Count 3.70 M/mm3 (4.6-6.20); White Blood Count 12.2 K/mm3 (4.5-10.0)
[2025-07-09 06:20] LABS: Alanine Aminotransferase 101 U/L (6-50); Albumin Level 2.9 g/dL (3.5-5.1); Alkaline Phosphatase 111 U/L (38-126); Anion Gap 5 mmol/L (4-12); Aspartate Amino Transferase 94 U/L (17-59); Bilirubin,Total 0.8 mg/dL (0.2-1.3); Blood Urea Nitrogen 41 mg/dL (9-20); Calcium 7.5 mg/dL (8.4-10.2); Carbon Dioxide 23 mmol/L (22-30); Chloride 112 mmol/L (98-107); Estimated CRCL calculation 71 ml/min; Estimated Glomerular Filt Rate > 60; Glucose 115 mg/dL (65-110); Magnesium 2.5 mg/dL (1.6-2.3); Potassium 3.8 mmol/L (3.4-5.0); Sodium 140 mmol/L (137-145); Total Protein 5.6 g/dL (6.3-8.2)
[2025-07-09 06:35] LABS: CRP 26.4 mg/dL (<1.0)
[2025-07-09 06:37] LABS: Acanthocytes 1+
[2025-07-09 06:39] LABS: Schistocytes None Seen
[2025-07-09] MEDS: CENTRAL LINE FLUSH 10 ML IV PUSH ×3 (06:53→21:40)
[2025-07-09] MEDS: VANCOMYCIN 1,500 MG/NS 500 ML 1,500 MG/500 ML BAG 250 MG IVPB (09:16)
[2025-07-09] MEDS: FLUTICASONE PROPIONATE 0.05% NA SPR 16 GM BTL (*BKC) 1 SPRAY NASAL ×2 (09:16→21:40)
[2025-07-09] MEDS: CEFEPIME 2 GM in SODIUM CHLORIDE 0.9% IV 50 ML 100 ML IVPB ×2 (09:16→21:39)
--- NOTE | 2025-07-09 09:37 | P.PNINT_ITS ---
Progress Note: A&P Assessment and Plan (1) Septic shock: Code(s): A41.9 - Sepsis, unspecified organism; R65.21 - Severe sepsis with septic shock Status: Acute Assessment and Plan: Patient presented to the outside hospital in [facility] with complains of shortness of breath, abdominal bloating. -CTA chest abdomen and pelvis showed no pulmonary embolism, cholelithiasis with possible acute cholecystitis -patient was hypotensive at the outside hospital distal right receiving 30 mL/kg IV fluid bolus, central line was inserted and started on Levophed and transferred to the ICU for further manage -07/07: Patient off Levophed. -, patient given albumin, this spike fevers of 106, tachycardic, tachypneic, pulmonary vascular congestion, Lasix 40 mg IV x1 was given along with Tylenol, restarting Levophed. Had to be started on high- flow therapy for hypoxia -initial lactic acid was 5.7, lactic acid this morning is 2.0 -07/06: Started on cefepime, vancomycin, azithromycin -07/07: Blood cultures have been obtained (blood cultures a call from outside hospital growing Gram-negative bacilli) 07/08: Off Levophed, on 2 L nasal cannula, adequate urine output lactic acid is 2.0, creatinine stable at 1.25. Echocardiogram has been ordered. In the afternoon patient started to have chills, started to spike fevers was given Tylenol, IV ibuprofen and ice packs were placed, fevers did go up to 102.2. He was placed on high-flow therapy, given Lasix, with improvement. 07/09: Afebrile overnight, adequate urine output, lactic acid is 1.4, WBC trending down. CONSULT INFECTIOUS DISEASE (2) Right lower lobe pneumonia: Qualifiers: Pneumonia type: due to unspecified organism Qualified Code(s): J18.9 - Pneumonia, unspecified organism Code(s): J18.9 - Pneumonia, unspecified organism Status: Acute Assessment and Plan: Continue antibiotics as above, supplemental oxygen via high-flow therapy -respiratory panel will has been ordered and pending (3) Abnormal computed tomography of gallbladder: Code(s): R93.2 - Abnormal findings on diagnostic imaging of liver and biliary tract Status: Acute Assessment and Plan: CTA abdomen and pelvis at the outside hospital showed cholelithiasis with associated gallbladder wall distention with acute cholecystitis might be likely cause. -elevated LFTs and bilirubin -07/07: RUQ ultrasound done, pending report -hepatitis panel is negative -07/09: Bilirubin has resolved, LFTs trending down Plan DVT prophylaxis: Lovenox Stress ulcer prophylaxis: Not indicated Nutrition: NPO except sips and chips Code Status: Full code Critical Care Time Spent: 33 minutes Discussed with patient and his spouse at bedside and updated them with patient's condition and plan of care. I answered all questions Due to a high probability of clinically significant, life threatening deterioration, the patient required my highest level of preparedness to intervene emergently and I personally spent this critical care time directly and personally managing the patient. This critical care time included obtaining a history; examining the patient; pulse oximetry; ordering and review of studies; arranging urgent treatment with development of a management plan; evaluation of patient's response to treatment; frequent reassessment; and discussions with other providers. It was exclusive of separately billable procedures and treating other patients and teaching time. Please see Assessment and Plan section and the rest of the note for further information on patient assessment and treatment This dictation may have been done utilizing a voice recognition system. Attempts have been made to correct errors. However, there may be uncorrected grammatical, spelling, and recognitions errors present. Subjective Date/time seen: 07/09/25 09:37 Interval history: Reason for consult: Septic shock shortness on breath, pneumonia, abdominal bloating, gram negative bacteremia 07/09/2025: Patient seen examined the ICU, is awake, alert, oriented x3. Yesterday evening again patient had episode of chills, fevers of 102.2 and that is because which started to treat him with Tylenol, IV ibuprofen, ice packs. He at some pulmonary edema, was given Lasix, placed on high-flow therapy with improvement. He has been afebrile overnight, hemodynamically stable, not requiring any vasopressors. Remains on high-flow therapy, 40 L and 60% FiO2. Adequate urine output, normal lactic acid, LFTs continue to trend down. Remains the thrombocytopenic with platelets of 38 this morning 07/08/2025: Patient seen examined the ICU, is awake, alert, oriented x3, denies any chest pain shortness shortness of breath, abdominal pain, nausea vomiting. Has been afebrile overnight, hemodynamically stable, off Levophed, on 2 L nasal cannula with adequate O2 sats. Urine output has been adequate. Lactic acid has normalized, LFTs trending down. Thrombocytopenia with platelets of 54 Review of Systems Review of Systems: All systems reviewed & are unremarkable except as noted in HPI and below Exam Narrative: General: Pleasant gentleman in no acute distress HEENT:? Pupils equal reactive, sclerae is clear, moist oral mucosa Neck:? Supple Respiratory:? Coarse breath sounds bilaterally, decreased at bases, no wheezing, adequate air entry otherwise Cardiac:? S1-S2 normal, regular rate and rhythm Abdomen:? Soft, nontender, nondistended with normoactive bowel sounds Extremities:? No edema, palpable pedal pulses, Neuro:? Patient awake, alert, oriented x3, nonfocal, answers to questions appropriately and follows simple commands in all extremities Skin:? Warm and dry, no skin lesions noted Psych:? Normal mentation and affect Objective Data Vital Signs Vital Signs: Vital Signs - 24 hr 07/08/25 10:00 07/08/25 10:00 07/08/25 10:00 Temperature 98.8 F Pulse Rate 74 74 74 Respiratory Rate 26 H Blood Pressure 100/72 100/72 Pulse Oximetry 91 Oxygen Delivery Oxygen Flow Rate Fraction of Inspired Oxygen 07/08/25 11:00 07/08/25 11:54 07/08/25 12:00 Temperature 98.7 F Pulse Rate 76 71 Respiratory Rate 23 H Blood Pressure 101/75 Pulse Oximetry 91 92 Oxygen Delivery Nasal Cannula Oxygen Flow Rate 2 Fraction of Inspired Oxygen 07/08/25 12:00 07/08/25 12:00 07/08/25 13:00 Temperature 98.8 F 99.1 F Pulse Rate 69 69 78 Respiratory Rate 22 H 26 H Blood Pressure 127/82 127/82 119/76 Pulse Oximetry 93 91 Oxygen Delivery Oxygen Flow Rate Fraction of Inspired Oxygen 07/08/25 13:15 07/08/25 13:15 07/08/25 13:35 Temperature 99.8 F H 100.5 F H Pulse Rate 125 H Respiratory Rate 29 H Blood Pressure 98/82 L Pulse Oximetry 91 88 L Oxygen Delivery High Flow Therapy with Na Nasal Cannula Oxygen Flow Rate 40 4 Fraction of Inspired Oxygen 80 07/08/25 13:42 07/08/25 13:55 07/08/25 14:00 Temperature 101.2 F H 102.2 F H Pulse Rate 144 H 108 H Respiratory Rate 34 H Blood Pressure 112/85 Pulse Oximetry 91 Oxygen Delivery Oxygen Flow Rate Fraction of Inspired Oxygen 07/08/25 14:00 07/08/25 14:00 07/08/25 14:12 Temperature Pulse Rate 108 H 108 H 135 H Respiratory Rate 35 H Blood Pressure 112/85 Pulse Oximetry 90 Oxygen Delivery High Flow Therapy with Na Oxygen Flow Rate 40 Fraction of Inspired Oxygen 85 07/08/25 14:35 07/08/25 14:42 07/08/25 15:00 Temperature 101.6 F H 101.6 F H 101.5 F H Pulse Rate 100 Respiratory Rate 28 H Blood Pressure 101/71 Pulse Oximetry 96 Oxygen Delivery Oxygen Flow Rate Fraction of Inspired Oxygen 07/08/25 16:00 07/08/25 16:00 07/08/25 16:00 Temperature 100.8 F H Pulse Rate 109 H 109 H Respiratory Rate 30 H Blood Pressure 104/72 104/72 Pulse Oximetry 96 97 Oxygen Delivery High Flow Therapy with Na Oxygen Flow Rate 40 Fraction of Inspired Oxygen 80 07/08/25 16:00 07/08/25 17:00 07/08/25 18:00 Temperature 100.4 F H Pulse Rate 109 H 106 H 104 H Respiratory Rate 30 H Blood Pressure 109/65 102/79 Pulse Oximetry 96 Oxygen Delivery Oxygen Flow Rate Fraction of Inspired Oxygen 07/08/25 18:00 07/08/25 18:00 07/08/25 19:00 Temperature 100.1 F H 99.0 F Pulse Rate 104 H 104 H 101 H Respiratory Rate 28 H 27 H Blood Pressure 102/79 140/92 H Pulse Oximetry 92 94 Oxygen Delivery Oxygen Flow Rate Fraction of Inspired Oxygen 07/08/25 20:00 07/08/25 20:00 07/08/25 20:00 Temperature 99 F Pulse Rate 95 92 95 Respiratory Rate 27 H Blood Pressure 94/70 L 94/70 L Pulse Oximetry 95 Oxygen Delivery Oxygen Flow Rate Fraction of Inspired Oxygen 07/08/25 20:30 07/08/25 21:00 07/08/25 22:00 Temperature 98.7 F Pulse Rate 97 99 Respiratory Rate 22 H Blood Pressure 91/58 L Pulse Oximetry 94 96 Oxygen Delivery High Flow Therapy with Na Oxygen Flow Rate 40 Fraction of Inspired Oxygen 80 07/08/25 22:00 07/08/25 22:00 07/08/25 23:00 Temperature 98.9 F 98.5 F Pulse Rate 99 99 91 Respiratory Rate 21 H 27 H Blood Pressure 107/79 107/79 106/87 Pulse Oximetry 92 91 Oxygen Delivery Oxygen Flow Rate Fraction of Inspired Oxygen 07/08/25 23:11 07/09/25 00:00 07/09/25 00:00 Temperature 98.2 F Pulse Rate 97 92 92 Respiratory Rate 20 26 H Blood Pressure 115/81 115/81 Pulse Oximetry 97 95 Oxygen Delivery High Flow Therapy with Na Oxygen Flow Rate 40 Fraction of Inspired Oxygen 80 07/09/25 00:00 07/09/25 00:15 07/09/25 01:00 Temperature 98.5 F Pulse Rate 96 92 Respiratory Rate 27 H Blood Pressure 115/85 Pulse Oximetry 95 90 Oxygen Delivery High Flow Therapy with Na Oxygen Flow Rate 40 Fraction of Inspired Oxygen 80 07/09/25 02:00 07/09/25 02:00 07/09/25 02:00 Temperature 98.8 F Pulse Rate 93 93 93 Respiratory Rate 18 Blood Pressure 102/66 102/66 Pulse Oximetry 96 Oxygen Delivery Oxygen Flow Rate Fraction of Inspired Oxygen 07/09/25 03:00 07/09/25 04:00 07/09/25 04:00 Temperature 98.9 F 99.1 F Pulse Rate 83 90 84 Respiratory Rate 28 H 16 Blood Pressure 100/75 119/81 Pulse Oximetry 96 95 Oxygen Delivery Oxygen Flow Rate Fraction of Inspired Oxygen 07/09/25 04:00 07/09/25 04:00 07/09/25 05:00 Temperature 98.8 F Pulse Rate 84 79 Respiratory Rate 27 H Blood Pressure 119/81 109/76 Pulse Oximetry 97 96 Oxygen Delivery High Flow Therapy with Na Oxygen Flow Rate 40 Fraction of Inspired Oxygen 80 07/09/25 06:00 07/09/25 06:00 07/09/25 07:52 Temperature 98.8 F Pulse Rate 80 80 79 Respiratory Rate 26 H 27 H Blood Pressure 96/74 L Pulse Oximetry 96 99 Oxygen Delivery High Flow Therapy with Na Oxygen Flow Rate 40 Fraction of Inspired Oxygen 60 07/09/25 08:00 07/09/25 09:00 07/09/25 09:17 Temperature 99 F 98.1 F Pulse Rate 74 93 Respiratory Rate 26 H 24 H Blood Pressure 112/83 106/75 Pulse Oximetry 98 95 Oxygen Delivery Oxygen Flow Rate Fraction of Inspired Oxygen Intake/Output Intake/Output: Intake & Output 07/06/25 07/07/25 07/08/25 07/09/25 23:59 23:59 23:59 23:59 Intake Total 2036.9 2901.5 500 Output Total 1400 1325 600 Balance 636.9 1576.5 -100 Meds/Results Medications: Active Medications Generic Name Dose Route Start Last Admin Trade Name Freq PRN Reason Stop Dose Admin Acetaminophen 650 mg 07/06/25 22:57 07/08/25 13:35 Acetaminophen 325 Mg Tablet PO 650 mg Q4H PRN Administration Mild Pain (1-3) or Fever Al Hydrox/Mg Hydrox/Simethicone 30 ml 07/06/25 22:57 Mag Hydrox/Al Hydrox/Simeth 30 Ml Udc PO QID PRN Dyspepsia Bisacodyl 5 mg 07/06/25 22:57 Bisacodyl 5 Mg Tablet Ec PO DAILY PRN Constipation Dextrose 12.5 gm 07/06/25 23:18 Dextrose 50% 25 Gm/50 Ml Syringe IV PUSH PRN PRN Hypoglycemia Protocol Enoxaparin Sodium 40 mg 07/07/25 09:00 07/08/25 07:47 Enoxaparin 40 Mg/0.4 Ml Syringe SUB-Q Not Given On Hold: 07/08/25 10:03 DAILY XENIA Fluticasone Propionate 1 spray 07/07/25 09:00 07/09/25 09:16 Fluticasone Propionate 0.05% Na Spr 16 Gm Btl (*Bkc) NASAL 1 spray Q12HR XENIA Administration Glucagon 1 mg 07/06/25 23:18 Glucagon For Inj 1 Mg Vial IM PRN PRN Hypoglycemia Protocol Glucose 15 gm 07/06/25 23:18 Glucose Oral Gel 15 Gm Of Glucse In 37.5 Gm Tube PO PRN PRN Hypoglycemia Protocol Cefepime HCl 2 gm/ Sodium 50 mls @ 100 mls/hr 07/07/25 09:00 07/09/25 09:16 Chloride IVPB 100 mls/hr Q12H XENIA Administration Azithromycin 500 mg/ Sodium 250 mls @ 250 mls/hr 07/07/25 22:00 07/08/25 22:13 Chloride IVPB 07/10/25 22:59 Infused Q24H XENIA Infusion Dextrose 1,000 mls @ 100 mls/hr 07/06/25 23:18 Dextrose 5% 1,000 Ml IVPB PRN PRN Hypoglycemia Protocol Norepinephrine Bitartrate 8 mg in 250 mls @ 0 mls/hr 07/07/25 00:45 07/09/25 04:00 Levophed 8 Mg/D5w 250 Ml IV CONT 0 mcg/min .Q0M XENIA 0 mls/hr Protocol Titration 0 MCG/MIN Ibuprofen 400 mg/ Sodium 104 mls @ 208 mls/hr 07/07/25 17:27 07/08/25 14:12 Chloride IVPB Infused Q8H PRN Infusion Pain Rated 4-6 Vancomycin HCl 1,500 mg in 500 mls @ 250 mls/hr 07/08/25 10:00 07/09/25 09:16 Vancomycin 1,500 Mg/Ns 500 Ml IVPB 250 mls/hr Q12H XENIA Administration Insulin Aspart 3 - 6 units 07/07/25 08:00 07/09/25 07:40 Insulin Aspart (*Bkc) 100 Units/Ml SUB-Q Not Given [facility] Protocol Ondansetron HCl 4 mg 07/06/25 22:57 Ondansetron Inj 4 Mg/2 Ml Vial IV PUSH Q6H PRN Nausea And Vomiting Perflutren Lipid Microsphere 0 ml 07/08/25 07:18 Perflutren Lipid Microspheres 1.5 Ml Vial Diluted To 10 Ml Total Volume IV PUSH 07/11/25 07:18 ONCE PRN adequate visualization Protocol Sodium Chloride 10 ml 07/07/25 14:00 07/09/25 06:53 Central Line Flush IV PUSH 10 ml Q8HR XENIA Administration Sodium Chloride 20 ml 07/07/25 06:38 Central Line Flush IV PUSH PRN PRN after blood draws Radiology Results: ITS Impressions Chest X-Ray 07/09/25 07:15 IMPRESSION: 1. Unchanged mild opacities at the left lung base which could represent atelectasis or pneumonia. 2. Unchanged elevation of the right hemidiaphragm. Labs Labs: Laboratory Results - last 24 hr 07/08/25 07/08/25 07/08/25 11:36 16:50 20:39 WBC RBC Hgb Hct MCV MCH MCHC RDW Plt Count MPV Immature Gran % (Auto) Neut % (Auto) Lymph % (Auto) [place] % (Auto) Eos % (Auto) Baso % (Auto) Lymph # (Auto) [place] # (Auto) Eos # (Auto) Baso # (Auto) Abs Immat Gran (auto) Absolute Neuts (auto) Absolute Nucleated RBC Band Neutrophils % Nucleated RBC % Platelet Estimate % Immature Plt Fraction Bite Cells Acanthocytes (Spur) Schistocytes Sodium Potassium Chloride Carbon Dioxide Anion Gap BUN Creatinine Estim Creat Clear Calc Estimated GFR Glucose POC Capillary Glucose 84 141 H 138 H Lactic Acid Calcium Phosphorus Magnesium Total Bilirubin AST ALT Alkaline Phosphatase C-Reactive Protein Total Protein Albumin 07/09/25 07/09/25 07/09/25 05:39 05:40 07:32 WBC 12.2 H RBC 3.70 L Hgb 11.7 L Hct 36.3 L MCV 98.1 MCH 31.6 MCHC 32.2 RDW 14.1 Plt Count 38 L MPV 11.6 H Immature Gran % (Auto) 0.9 H Neut % (Auto) 90.0 H Lymph % (Auto) 2.9 L [place] % (Auto) 5.2 Eos % (Auto) 0.2 Baso % (Auto) 0.8 Lymph # (Auto) 0.36 L [place] # (Auto) 0.6 Eos # (Auto) 0.0 Baso # (Auto) 0.1 Abs Immat Gran (auto) 0.11 H Absolute Neuts (auto) 11.0 H Absolute Nucleated RBC 0.000 Band Neutrophils % Not Reportable Nucleated RBC % 0.0 Platelet Estimate Decreased % Immature Plt Fraction 7.6 Bite Cells Occasional Acanthocytes (Spur) 1+ Schistocytes None seen Sodium 140 Potassium 3.8 Chloride 112 H Carbon Dioxide 23 Anion Gap 5 BUN 41 H D Creatinine 0.97 Estim Creat Clear Calc 71 Estimated GFR > 60 Glucose 115 H POC Capillary Glucose 128 H Lactic Acid 1.4 Calcium 7.5 L Phosphorus 2.5 Magnesium 2.5 H Total Bilirubin 0.8 AST 94 H ALT 101 H Alkaline Phosphatase 111 C-Reactive Protein 26.4 H Total Protein 5.6 L Albumin 2.9 L Quality VTE Prophylaxis VTE prophylaxis: pharmacologic ordered
[2025-07-09] MEDS: metroNIDAZOLE 500 MG/ISO 100ML 500 MG/100 ML BAG 100 MG IVPB ×2 (13:45→21:40)
[2025-07-09] MEDS: ACETAMINOPHEN 325 MG TABLET 650 MG PO (13:45)
[2025-07-09] MEDS: ONDANSETRON INJ 4 MG/2 ML VIAL IV PUSH (13:54)
[2025-07-09] MEDS: IBUPROFEN IV 400 MG in SODIUM CHLORIDE 0.9% IV 100 ML 208 MG IVPB (15:57)
--- NOTE | 2025-07-09 17:30 | WPDIDCN ---
Assessment and Plan Assessment and plan (1) Gram negative septicemia: Code(s): A41.50 - Gram-negative sepsis, unspecified Status: Acute (2) Septic shock: Code(s): A41.9 - Sepsis, unspecified organism; R65.21 - Severe sepsis with septic shock Status: Acute (3) Abdominal pain in male: Code(s): R10.9 - Unspecified abdominal pain Status: Acute (4) Diarrhea: Code(s): R19.7 - Diarrhea, unspecified Status: Acute (5) Elevated LFTs: Code(s): R79.89 - Other specified abnormal findings of blood chemistry Status: Acute (6) Acute hypoxic respiratory failure: Code(s): J96.01 - Acute respiratory failure with hypoxia Status: Acute (7) Thrombocytopenia: Code(s): D69.6 - Thrombocytopenia, unspecified Status: Acute (8) Ejection fraction < 50%: Status: Acute Plan # Gram-negative bacteremia associated with acute onset of abdominal complaints including bloating, anorexia, limited emesis, and subsequent diarrhea. Suspect GI pathogen. -- consider gastroenteritis involving organism such as Salmonella or Campylobacter. Nonbloody diarrhea would argue against shigella-like disease. -- mild transaminitis and resolved mild hyperbilirubinemia. Original concern based on outside CT scan for acute cholecystitis; however, current ultrasound does not support diagnosis. -- prominent GI symptoms and lack of obvious chest x-ray findings suggest pneumonia as a cause of Gram-negative bacteremia less likely. # Severe sepsis with septic shock. # Hypoxemia. -- may be a manifestation of sepsis, heart failure with pulmonary edema, or pneumonia. # Diminished ejection fraction. # Mild transaminitis. # Thrombocytopenia. Plan: -- pending blood Gram-negative afshan identification would continue with cefepime and metronidazole. -- atypical pneumonia seems less likely but would continue with azithromycin for Campylobacter coverage. -- follow-up on current blood cultures as well as Gram-negative identified at outside institution. Adjust antibiotics as necessary. -- await outstanding stool studies. -- discussed with patient and family at bedside. -- discussed with Dr. Castro. -- further recommendations to follow. Thank you for the consult. Patient was seen via video telehealth consultation with the assistance of staff. Chart, data, and patient independently reviewed. Patient was located at [facility] while I was located in my [place] office. Received verbal consent from patient. [facility] Data of Consult Date/Time: 07/09/25 17:30 Requesting Physician: Asuncion Ruiz DO Primary Care Provider: Sourav Olguin MD Consult Narrative Reason for consult: Gram-negative bacteremia. Narrative: Van Young is a 74 year old male transfer to [facility] after initial evaluation at an outside ED for abdominal complaints associated with rigors. Outside hospital blood cultures now positive for Gram-negative rods. History of prostate cancer with radiation therapy, hypertension, and paroxysmal atrial fibrillation status post ablation. Recent travel to [place], [place] for vacation purposes. 2 days prior to presentation And while on vacation he developed significant abdominal bloating and anorexia that he attributed to a prior days visit to [facility] verses a several day history of constipation. His also reports a brief episode of abdominal discomfort the morning after their meal and [place] but her symptoms resolved. Upon returning home symptoms progressed to include severe rigors, diaphoresis, and fatigue. Temperature at outside ED reported to be 102.5. Additionally, he was tachycardic and hypotensive, initially requiring Levophed. Rapid respiratory pathogen evaluation negative but he was hypoxemic requiring 4 L per nasal cannula. Noted to have leukopenia and thrombocytopenia, elevated lactate, mild transaminitis as well as a bilirubin of 2.2. CTA of the chest was negative for PE but with sub optimal timing of contrast bolus. Also with possible right lower lobe pneumonia. CT of the abdomen and pelvis identified cholelithiasis with gallbladder wall distention and possible acute cholecystitis. Empirically placed on cefepime, vancomycin, and azithromycin. Transferred to [facility] for continuity of medical care. Report of Gram-negative bacteremia occurred after transfer. Since transfer he has continued to have fever as high as 106, tachycardia, and tachypnea. He has required BiPAP. He has developed diarrhea post transfer. Leukopenia has resolved and he now has mild leukocytosis of 12.2. Thrombocytopenia remains with a platelet count of 38. Lactated bilirubin are normal but still with mild transaminitis. Urinalysis with microscopic hematuria but without pyuria. C difficile and hepatitis panel all negative. No known antibiotic allergies and with report of Gram-negative bacteremia metronidazole has been added to cefepime. Azithromycin continues And vancomycin has been discontinued. Chest x-ray yesterday suggest mild pulmonary edema and transthoracic echocardiogram with ejection fraction of 25-30. Today's chest x-ray with possible left base pneumonia versus atelectasis. Right upper quadrant ultrasound failed to supported diagnosis of cholecystitis. Review of Systems Review of Systems: All systems reviewed & are unremarkable except as noted in HPI and below ON LICENSE OF [facility] Past Medical History Medical History (Updated 07/09/25 @ 18:28 by Duy Roque MD) Allergic rhinitis Body mass index [BMI] 33.0-33.9, adult (11/24/16) Cough due to CANDI inhibitor Erectile dysfunction due to arterial insufficiency Impaired glucose tolerance (oral) Prostate CA (~2019) HTN (hypertension) HLD (hyperlipidemia) Vitamin D deficiency disease Hyperglycemia Surgical History Surgical History (Updated 07/07/25 @ 02:27 by Asuncion Ruiz DO) History of tonsillectomy and adenoidectomy History of cardiac ablation for atrial fibrillation (~2023) Family History Family History Father Acute myocardial infarction, Onset Age: 83 Hypertension Asthma Sibling Hypertension Other Family history of cardiovascular disease Social History Social History (Updated 07/07/25 @ 02:31 by Asuncion Ruiz DO) Social History: Code status: Full code Surrogate decision maker: Smoking status: Former smoker Tobacco type: cigarettes Smoking end date: 04/24/88 Additional smoking assessment comments: 1 to 1.5 packs per day from [age]yo Alcohol intake: former Alcohol use details: Drinks 6 pack per day but quit at age 38 Substance use: never Substance use type: does not use Do You Feel Safe in your Home?: Yes Lack of Transportation: No Lack of Food: Never True Current Housing: I Have Housing Concerned About Future Housing: No Difficulty Paying Gas/Electric Bills: No Difficulty Paying for Meds: No Currently Unemployed: No Education: High School Diploma/GED Difficulty w/ Childcare or Family Care: No Living arrangements: with family Additional living arrangements comments: Lives with his of 49 years. They have 5 children. Occupation/Education: retired Additional occupation/education comments: He is retired from [employer]. Spiritual care concerns: No Meds Home Medications and Allergies Home Medications ?Medication ?Instructions ?Recorded ?Confirmed ?Type aspirin 81 mg tablet,delayed 81 mg PO DAILY 11/19/20 07/07/25 History release cholecalciferol (vitamin D3) 25 1,000 unit PO DAILY 11/19/20 07/07/25 History mcg (1,000 unit) tablet (Vitamin D3) cranberry 500 mg capsule 500 mg PO DAILY 11/19/20 07/07/25 History multivitamin 1 tablet PO DAILY 11/19/20 07/07/25 History fluticasone propionate 50 1 spray intranasal BID #16 grams 07/08/22 07/07/25 Rx mcg/actuation nasal spray,suspension (Flonase Allergy Relief) sildenafil 100 mg tablet (Viagra) 100 mg PO DAILY PRN sexual 02/15/24 07/07/25 Rx activity #30 tabs metformin 500 mg tablet See Rx Instructions .Route 12/25/24 07/07/25 Rx .COMPLEX #90 tabs simvastatin 40 mg tablet See Rx Instructions .Route 03/27/25 07/07/25 Rx .COMPLEX #90 tabs losartan 100 mg tablet See Rx Instructions .Route 04/02/25 07/07/25 Rx .COMPLEX #90 tabs Allergies Allergy/AdvReac Type Severity Reaction Status Date / Time No Known Allergies Allergy Mild Verified 07/07/25 01:12 Vital Signs Vital Signs - 24 hr 07/08/25 18:00 07/08/25 18:00 07/08/25 18:00 Temperature 100.1 F H Pulse Rate 104 H 104 H 104 H Respiratory Rate 28 H Blood Pressure 102/79 102/79 Pulse Oximetry 92 Oxygen Delivery Oxygen Flow Rate Fraction of Inspired Oxygen 07/08/25 19:00 07/08/25 20:00 07/08/25 20:00 Temperature 99.0 F 99 F Pulse Rate 101 H 95 92 Respiratory Rate 27 H 27 H Blood Pressure 140/92 H 94/70 L Pulse Oximetry 94 95 Oxygen Delivery Oxygen Flow Rate Fraction of Inspired Oxygen 07/08/25 20:00 07/08/25 20:30 07/08/25 21:00 Temperature 98.7 F Pulse Rate 95 97 Respiratory Rate 22 H Blood Pressure 94/70 L 91/58 L Pulse Oximetry 94 96 Oxygen Delivery High Flow Therapy with Na Oxygen Flow Rate 40 Fraction of Inspired Oxygen 80 07/08/25 22:00 07/08/25 22:00 07/08/25 22:00 Temperature 98.9 F Pulse Rate 99 99 99 Respiratory Rate 21 H Blood Pressure 107/79 107/79 Pulse Oximetry 92 Oxygen Delivery Oxygen Flow Rate Fraction of Inspired Oxygen 07/08/25 23:00 07/08/25 23:11 07/09/25 00:00 Temperature 98.5 F 98.2 F Pulse Rate 91 97 92 Respiratory Rate 27 H 20 26 H Blood Pressure 106/87 115/81 Pulse Oximetry 91 97 95 Oxygen Delivery High Flow Therapy with Na Oxygen Flow Rate 40 Fraction of Inspired Oxygen 80 07/09/25 00:00 07/09/25 00:00 07/09/25 00:15 Temperature Pulse Rate 92 96 Respiratory Rate Blood Pressure 115/81 Pulse Oximetry 95 Oxygen Delivery High Flow Therapy with Na Oxygen Flow Rate 40 Fraction of Inspired Oxygen 80 07/09/25 01:00 07/09/25 02:00 07/09/25 02:00 Temperature 98.5 F 98.8 F Pulse Rate 92 93 93 Respiratory Rate 27 H 18 Blood Pressure 115/85 102/66 Pulse Oximetry 90 96 Oxygen Delivery Oxygen Flow Rate Fraction of Inspired Oxygen 07/09/25 02:00 07/09/25 03:00 07/09/25 04:00 Temperature 98.9 F Pulse Rate 93 83 90 Respiratory Rate 28 H Blood Pressure 102/66 100/75 Pulse Oximetry 96 Oxygen Delivery Oxygen Flow Rate Fraction of Inspired Oxygen 07/09/25 04:00 07/09/25 04:00 07/09/25 04:00 Temperature 99.1 F Pulse Rate 84 84 Respiratory Rate 16 Blood Pressure 119/81 119/81 Pulse Oximetry 95 97 Oxygen Delivery High Flow Therapy with Na Oxygen Flow Rate 40 Fraction of Inspired Oxygen 80 07/09/25 05:00 07/09/25 06:00 07/09/25 06:00 Temperature 98.8 F 98.8 F Pulse Rate 79 80 80 Respiratory Rate 27 H 26 H Blood Pressure 109/76 96/74 L Pulse Oximetry 96 96 Oxygen Delivery Oxygen Flow Rate Fraction of Inspired Oxygen 07/09/25 07:52 07/09/25 08:00 07/09/25 08:00 Temperature 99 F Pulse Rate 79 74 Respiratory Rate 27 H 26 H Blood Pressure 112/83 Pulse Oximetry 99 98 97 Oxygen Delivery High Flow Therapy with Na High Flow Therapy with Na Oxygen Flow Rate 40 40 Fraction of Inspired Oxygen 60 60 07/09/25 08:00 07/09/25 08:00 07/09/25 09:00 Temperature Pulse Rate 77 79 93 Respiratory Rate 24 H Blood Pressure 112/83 106/75 Pulse Oximetry 95 Oxygen Delivery Oxygen Flow Rate Fraction of Inspired Oxygen 07/09/25 09:17 07/09/25 10:00 07/09/25 10:00 Temperature 98.1 F Pulse Rate 78 74 Respiratory Rate 22 H Blood Pressure 97/74 L Pulse Oximetry 95 Oxygen Delivery Oxygen Flow Rate Fraction of Inspired Oxygen 07/09/25 10:00 07/09/25 11:25 07/09/25 12:00 Temperature 99.6 F Pulse Rate 74 79 Respiratory Rate 18 Blood Pressure 97/74 L 114/77 Pulse Oximetry 100 Oxygen Delivery High Flow Therapy with Na Oxygen Flow Rate 18 Fraction of Inspired Oxygen 07/09/25 12:00 07/09/25 12:00 07/09/25 12:00 Temperature Pulse Rate 93 80 Respiratory Rate Blood Pressure 114/77 Pulse Oximetry 96 Oxygen Delivery High Flow Therapy with Na Oxygen Flow Rate 40 Fraction of Inspired Oxygen 65 07/09/25 13:00 07/09/25 13:00 07/09/25 13:45 Temperature 100.9 F H 100.6 F H 101 F H Pulse Rate 93 97 Respiratory Rate 29 H 18 Blood Pressure 103/71 103/71 Pulse Oximetry 96 97 Oxygen Delivery Oxygen Flow Rate Fraction of Inspired Oxygen 07/09/25 14:00 07/09/25 14:00 07/09/25 14:00 Temperature 101.4 F H Pulse Rate 91 85 88 Respiratory Rate 25 H Blood Pressure 116/69 116/69 Pulse Oximetry 96 Oxygen Delivery Oxygen Flow Rate Fraction of Inspired Oxygen 07/09/25 14:45 07/09/25 15:00 07/09/25 15:01 Temperature 101.1 F H Pulse Rate 97 Respiratory Rate 29 H Blood Pressure 102/70 Pulse Oximetry 97 Oxygen Delivery High Flow Therapy with Na Oxygen Flow Rate 40 Fraction of Inspired Oxygen 07/09/25 15:57 07/09/25 16:00 07/09/25 16:00 Temperature 102.2 F H 102.2 F H Pulse Rate 114 H 114 H Respiratory Rate 33 H Blood Pressure 106/76 106/76 Pulse Oximetry 97 Oxygen Delivery Oxygen Flow Rate Fraction of Inspired Oxygen 07/09/25 16:00 07/09/25 17:00 Temperature Pulse Rate 99 Respiratory Rate 22 H Blood Pressure 93/64 L Pulse Oximetry 97 96 Oxygen Delivery High Flow Therapy with Na Oxygen Flow Rate 40 Fraction of Inspired Oxygen 65 Exam Narrative: Awake and alert and sitting up in a chair and able to answer questions. Utilizing nasal BiPAP. Family at bedside. No conjunctivitis. Some tachypnea but not in respiratory distress. Abdomen with some distention. No evidence of rash. Left IJ present and placed at outside institution. Results Labs 07/09/25 05:40 07/09/25 05:39 Labs: Short CBC 07/09/25 Range/Units 05:40 WBC 12.2 H (4.5-10.0) K/mm3 Hgb 11.7 L (14.0-18.0) g/dL Hct 36.3 L (42.0-52.0) % Plt Count 38 L (150-375) k/mm3 BMP 07/09/25 05:39 Sodium 140 Potassium 3.8 Chloride 112 H Carbon Dioxide 23 BUN 41 H D Creatinine 0.97 Glucose 115 H Calcium 7.5 L Liver Function 07/09/25 Range/Units 05:39 Total Bilirubin 0.8 (0.2-1.3) mg/dL AST 94 H (17-59) U/L ALT 101 H (6-50) U/L Alkaline Phosphatase 111 (38-126) U/L Albumin 2.9 L (3.5-5.1) g/dL
--- NOTE | 2025-07-09 17:57 | P.CONCA_ITS ---
Assessment and Plan Assessment and plan (1) Acute systolic heart failure: Code(s): I50.21 - Acute systolic (congestive) heart failure Status: Acute (2) HTN (hypertension): Qualifiers: Hypertension type: primary hypertension Qualified Code(s): I10 - Essential (primary) hypertension Code(s): I10 - Essential (primary) hypertension Status: Acute (3) Bradycardia: Code(s): R00.1 - Bradycardia, unspecified Status: Acute (4) HLD (hyperlipidemia): Qualifiers: Hyperlipidemia type: mixed hyperlipidemia Qualified Code(s): E78.2 - Mixed hyperlipidemia Code(s): E78.5 - Hyperlipidemia, unspecified Status: Acute Plan Diagnosis: New onset acute systolic heart failure with LVEF of 25-30% Family history of CAD on father side Hypertension Hyperlipidemia Paroxysmal AFib status post ablation in 2023 Gram-negative bacteremia Thrombocytopenia-platelet count 38 Plan: Suspect that this is new onset systolic cardiomyopathy. Obtain TTE from outside hospital done 2 months back to confirm Will start guideline directed medical therapy as blood pressure tolerates He will need evaluation for ischemia as cause of his cardiomyopathy. However at this time his platelet count is only 38 and this would preclude him from any non emergent invasive procedures including coronary angiogram particularly in the absence of chest pain Trend troponin to peak EKG p.r.n. for any chest pain Check and replace electrolytes to keep potassium greater than 4 and magnesium greater than 2 Add small dose of metoprolol 12.5 mg p.o. b.i.d. if blood pressure allows No antiplatelet agents given platelet count of 38 Check fasting lipid panel Check NT proBNP Management of other medical problems per primary team History of Present Illness History of Present Illness Consult date/time: 07/09/25 17:57 Reason For Visit: Septic shock, acute respiratory failure, pneumonia Narrative: 74 y/o male with medical history of HTN, HLD, paroxysmal AFib status post ablation 2023, impaired glucose tolerance, prostate cancer status post radiation therapy presented with CC of chills and abdominal bloating. Patient states that he and his were in [place] for vacation. Two days ago they ate at a [employer]. The next morning, his abdomen felt distended and he had belching. He had no appetite. He took Pepto-Bismol without relief in symptoms. He had an episode of vomiting. He had severe chills not relieved with Tylenol. He woke up diaphoretic and fatigued. He then presented to an OSH ER where he was febrile to 102.5?, tachycardic with heart rates in the 120s, hypotensive requiring Levophed, and hypoxemic requiring 4 L per nasal cannula. Labs at OSH showed leukopenia, thrombocytopenia, elevated lactate, mild transaminitis, and bilirubin of 2.2. CTA chest was negative for PE but with sub optimal timing of contrast bolus, and showed possible right lower lobe pneumonia. CT of the abdomen and pelvis showed cholelithiasis with gallbladder wall distention and possible acute cholecystitis. He was empirically placed on cefepime, vancomycin, and azithromycin and transferred to [facility] for further management. Cultures were reported as growing Gram-negative bacteremia after transfer. Since transfer to [facility] he continued to fever of 106, tachycardia, and tachypnea requiring BiPAP. He developed diarrhea post transfer. Leukopenia resolved and he has mild leukocytosis of 12.2. He has a platelet count of 38. Lactate and bilirubin are normal but still with mild transaminitis. Urinalysis showed microscopic hematuria but without pyuria. C difficile and hepatitis panel were negative. Chest x-ray showed mild pulmonary edema and transthoracic echocardiogram showed ejection fraction of 25-30%. Right upper quadrant ultrasound did not show cholecystitis. Cardiology is consulted for further recommendations given depressed LVEF of 20%. Patient denies any chest pain shortness of breath, dizziness, lightheadedness presyncope, syncope recent leg swelling or weight gain, orthopnea, PND. He is active. He states that he had an echo couple of months ago at outside hospital. He is not aware of the results. Workup: TTE: Summary 1. Complete two-dimensional, color flow and Doppler transthoracic echocardiogram is performed. 2. Left ventricular chamber dimension is mildly enlarged. 3. Left ventricular systolic function is severely reduced, estimated at 25-30. 4. There is mildly increased left ventricular wall thickness. 5. The left ventricular diastolic function is grade I diastolic dysfunction. 6. Right ventricular systolic function is reduced. 7. Left atrial chamber dimension is mildly enlarged. 8. Right atrial chamber dimension is mildly enlarged. 9. There is mild to moderate mitral valve regurgitation. 10. There is mild tricuspid valve regurgitation. 11. Mild pulmonary hypertension, estimated pulmonary arterial systolic pressure is 40 mmHg. 12. The aortic root size at the sinus of Valsalva is mildly dilated. CXR: IMPRESSION: 1. Unchanged mild opacities at the left lung base which could represent atelectasis or pneumonia. 2. Unchanged elevation of the right hemidiaphragm. Review of Systems 2 Cardiovascular: Comments: As per HPI Respiratory: Comments: As per HPI ON LICENSE OF [facility] Past Medical History Medical History (Updated 07/09/25 @ 18:28 by Duy Roque MD) Allergic rhinitis Body mass index [BMI] 33.0-33.9, adult (11/24/16) Cough due to CANDI inhibitor Erectile dysfunction due to arterial insufficiency Impaired glucose tolerance (oral) Prostate CA (~2019) HTN (hypertension) HLD (hyperlipidemia) Vitamin D deficiency disease Hyperglycemia Surgical History Surgical History (Updated 07/07/25 @ 02:27 by Asuncion Ruiz DO) History of tonsillectomy and adenoidectomy History of cardiac ablation for atrial fibrillation (~2023) Family History Family History Father Acute myocardial infarction, Onset Age: 83 Hypertension Asthma Sibling Hypertension Other Family history of cardiovascular disease Social History Social History (Updated 07/07/25 @ 02:31 by Asuncion Ruiz DO) Social History: Code status: Full code Surrogate decision maker: Smoking status: Former smoker Tobacco type: cigarettes Smoking end date: 04/24/88 Additional smoking assessment comments: 1 to 1.5 packs per day from [age]yo Alcohol intake: former Alcohol use details: Drinks 6 pack per day but quit at age 38 Substance use: never Substance use type: does not use Do You Feel Safe in your Home?: Yes Lack of Transportation: No Lack of Food: Never True Current Housing: I Have Housing Concerned About Future Housing: No Difficulty Paying Gas/Electric Bills: No Difficulty Paying for Meds: No Currently Unemployed: No Education: High School Diploma/GED Difficulty w/ Childcare or Family Care: No Living arrangements: with family Additional living arrangements comments: Lives with his of 49 years. They have 5 children. Occupation/Education: retired Additional occupation/education comments: He is retired from [employer]. Spiritual care concerns: No Meds Home Medications and Allergies Home Medications ?Medication ?Instructions ?Recorded ?Confirmed ?Type aspirin 81 mg tablet,delayed 81 mg PO DAILY 11/19/20 0 07/07/25 History release cholecalciferol (vitamin D3) 25 1,000 unit PO DAILY 07/07/25 History mcg (1,000 unit) tablet (Vitamin D3) cranberry 500 mg capsule 500 mg PO DAILY 11/19/20 History multivitamin 1 tablet PO DAILY 11/19/20 0 07/07/25 History fluticasone propionate 50 1 spray intranasal BID #16 g amber 07/08/22 07/07/25 Rx mcg/actuation nasal spray,suspension (Flonase Allergy Relief) sildenafil 100 mg tablet (Viagra) 100 mg PO DAILY PRN sexual 02/15/24 07/07/25 Rx activity #30 tabs metformin 500 mg tablet See Rx Instructions .Route 0 12/25/24 07/07/25 Rx .COMPLEX #90 tabs simvastatin 40 mg tablet See Rx Instructions .Route 0 03/27/25 07/07/25 Rx .COMPLEX #90 tabs losartan 100 mg tablet See Rx Instructions .Route 0 04/02/25 07/07/25 Rx .COMPLEX #90 tabs Allergies Allergy/AdvReac Type Severity Reaction Status Date / Time No Known Allergies Allergy Mild Verified 07/07/25 01:12 Vital Signs Vital Signs - 24 hr 07/08/25 18:00 07/08/25 18:00 07/08/25 18:00 Temperature 37.8 C H Pulse Rate 104 H 104 H 104 H Respiratory Rate 28 H Blood Pressure 102/79 102/79 Pulse Oximetry 92 Oxygen Delivery Oxygen Flow Rate Fraction of Inspired Oxygen 07/08/25 19:00 07/08/25 20:00 07/08/25 20:00 Temperature 37.2 C 37.2 C Pulse Rate 101 H 95 92 Respiratory Rate 27 H 27 H Blood Pressure 140/92 H 94/70 L Pulse Oximetry 94 95 Oxygen Delivery Oxygen Flow Rate Fraction of Inspired Oxygen 07/08/25 20:00 07/08/25 20:30 07/08/25 21:00 Temperature 37.1 C Pulse Rate 95 97 Respiratory Rate 22 H Blood Pressure 94/70 L 91/58 L Pulse Oximetry 94 96 Oxygen Delivery High Flow Therapy with Na Oxygen Flow Rate 40 Fraction of Inspired Oxygen 80 07/08/25 22:00 07/08/25 22:00 07/08/25 22:00 Temperature 37.2 C Pulse Rate 99 99 99 Respiratory Rate 21 H Blood Pressure 107/79 107/79 Pulse Oximetry 92 Oxygen Delivery Oxygen Flow Rate Fraction of Inspired Oxygen 07/08/25 23:00 07/08/25 23:11 07/09/25 00:00 Temperature 36.9 C 36.8 C Pulse Rate 91 97 92 Respiratory Rate 27 H 20 26 H Blood Pressure 106/87 115/81 Pulse Oximetry 91 97 95 Oxygen Delivery High Flow Therapy with Na Oxygen Flow Rate 40 Fraction of Inspired Oxygen 80 07/09/25 00:00 07/09/25 00:00 07/09/25 00:15 Temperature Pulse Rate 92 96 Respiratory Rate Blood Pressure 115/81 Pulse Oximetry 95 Oxygen Delivery High Flow Therapy with Na Oxygen Flow Rate 40 Fraction of Inspired Oxygen 80 07/09/25 01:00 07/09/25 02:00 07/09/25 02:00 Temperature 36.9 C 37.1 C Pulse Rate 92 93 93 Respiratory Rate 27 H 18 Blood Pressure 115/85 102/66 Pulse Oximetry 90 96 Oxygen Delivery Oxygen Flow Rate Fraction of Inspired Oxygen 07/09/25 02:00 07/09/25 03:00 07/09/25 04:00 Temperature 37.2 C Pulse Rate 93 83 90 Respiratory Rate 28 H Blood Pressure 102/66 100/75 Pulse Oximetry 96 Oxygen Delivery Oxygen Flow Rate Fraction of Inspired Oxygen 07/09/25 04:00 07/09/25 04:00 07/09/25 04:00 Temperature 37.3 C Pulse Rate 84 84 Respiratory Rate 16 Blood Pressure 119/81 119/81 Pulse Oximetry 95 97 Oxygen Delivery High Flow Therapy with Na Oxygen Flow Rate 40 Fraction of Inspired Oxygen 80 07/09/25 05:00 07/09/25 06:00 07/09/25 06:00 Temperature 37.1 C 37.1 C Pulse Rate 79 80 80 Respiratory Rate 27 H 26 H Blood Pressure 109/76 96/74 L Pulse Oximetry 96 96 Oxygen Delivery Oxygen Flow Rate Fraction of Inspired Oxygen 07/09/25 07:52 07/09/25 08:00 07/09/25 08:00 Temperature 37.2 C Pulse Rate 79 74 Respiratory Rate 27 H 26 H Blood Pressure 112/83 Pulse Oximetry 99 98 97 Oxygen Delivery High Flow Therapy with Na High Flow Therapy with Na Oxygen Flow Rate 40 40 Fraction of Inspired Oxygen 60 60 07/09/25 08:00 07/09/25 08:00 07/09/25 09:00 Temperature Pulse Rate 77 79 93 Respiratory Rate 24 H Blood Pressure 112/83 106/75 Pulse Oximetry 95 Oxygen Delivery Oxygen Flow Rate Fraction of Inspired Oxygen 07/09/25 09:17 07/09/25 10:00 07/09/25 10:00 Temperature 36.7 C Pulse Rate 78 74 Respiratory Rate 22 H Blood Pressure 97/74 L Pulse Oximetry 95 Oxygen Delivery Oxygen Flow Rate Fraction of Inspired Oxygen 07/09/25 10:00 07/09/25 11:25 07/09/25 12:00 Temperature 37.6 C Pulse Rate 74 79 Respiratory Rate 18 Blood Pressure 97/74 L 114/77 Pulse Oximetry 100 Oxygen Delivery High Flow Therapy with Na Oxygen Flow Rate 18 Fraction of Inspired Oxygen 07/09/25 12:00 07/09/25 12:00 07/09/25 12:00 Temperature Pulse Rate 93 80 Respiratory Rate Blood Pressure 114/77 Pulse Oximetry 96 Oxygen Delivery High Flow Therapy with Na Oxygen Flow Rate 40 Fraction of Inspired Oxygen 65 07/09/25 13:00 07/09/25 13:00 07/09/25 13:45 Temperature 38.3 C H 38.1 C H 38.3 C H Pulse Rate 93 97 Respiratory Rate 29 H 18 Blood Pressure 103/71 103/71 Pulse Oximetry 96 97 Oxygen Delivery Oxygen Flow Rate Fraction of Inspired Oxygen 07/09/25 14:00 07/09/25 14:00 07/09/25 14:00 Temperature 38.6 C H Pulse Rate 91 85 88 Respiratory Rate 25 H Blood Pressure 116/69 116/69 Pulse Oximetry 96 Oxygen Delivery Oxygen Flow Rate Fraction of Inspired Oxygen 07/09/25 14:45 07/09/25 15:00 07/09/25 15:01 Temperature 38.4 C H Pulse Rate 97 Respiratory Rate 29 H Blood Pressure 102/70 Pulse Oximetry 97 Oxygen Delivery High Flow Therapy with Na Oxygen Flow Rate 40 Fraction of Inspired Oxygen 07/09/25 15:57 07/09/25 16:00 07/09/25 16:00 Temperature 39.0 C H 39.0 C H Pulse Rate 114 H 114 H Respiratory Rate 33 H Blood Pressure 106/76 106/76 Pulse Oximetry 97 Oxygen Delivery Oxygen Flow Rate Fraction of Inspired Oxygen 07/09/25 16:00 07/09/25 17:00 Temperature Pulse Rate 99 Respiratory Rate 22 H Blood Pressure 93/64 L Pulse Oximetry 97 96 Oxygen Delivery High Flow Therapy with Na Oxygen Flow Rate 40 Fraction of Inspired Oxygen 65 Exam 2 Narrative: General: Alert oriented x3, no acute distress Neck: Supple, JVD + Chest: Bibasilar rales, no rhonchi Cardiac: S1, S2 +, regular rate, regular rhythm, no murmurs or rubs Extremities: Bilateral lower extremity edema 1+, no skin rash Neurologic: Alert and oriented x3, no focal neurological deficits Results Labs and Meds 07/09/25 05:40 07/09/25 05:39 Lab results: Cardiac Enzymes 07/09/25 Range/Units 05:39 AST 94 H (17-59) U/L CBC 07/09/25 Range/Units 05:40 WBC 12.2 H (4.5-10.0) K/mm3 RBC 3.70 L (4.6-6.20) M/mm3 Hgb 11.7 L (14.0-18.0) g/dL Hct 36.3 L (42.0-52.0) % Plt Count 38 L (150-375) k/mm3 Lymph # (Auto) 0.36 L (0.9-3.2) K/mm3 Day # (Auto) 0.6 (0.1-0.6) K/mm3 Eos # (Auto) 0.0 (0-0.3) K/mm3 Baso # (Auto) 0.1 (0.0-0.1) K/mm3 Comprehensive Metabolic Panel 07/09/25 Range/Units 05:39 Sodium 140 (137-145) mmol/L Potassium 3.8 (3.4-5.0) mmol/L Chloride 112 H (98-107) mmol/L Carbon Dioxide 23 (22-30) mmol/L BUN 41 H D (9-20) mg/dL Creatinine 0.97 (0.7-1.3) mg/dL Glucose 115 H (65-110) mg/dL Calcium 7.5 L (8.4-10.2) mg/dL AST 94 H (17-59) U/L ALT 101 H (6-50) U/L Alkaline Phosphatase 111 (38-126) U/L Total Protein 5.6 L (6.3-8.2) g/dL Albumin 2.9 L (3.5-5.1) g/dL Intake and Output 07/09/25 07/09/25 07/09/25 07:59 15:59 23:59 Intake Total 500 50 0 Output Total 600 850 750 Balance -100 -800 -750 Intake: IV 500 50 0 Norepinephrine 8 mg/D5w 250 ml 0 0 0 8 mg In 250 ml @ 0 MCG/MIN IV CONT .Q0M [facility] Rx#:[id number] Cefepime 2 gm In Sodium 50 Chloride 0.9% IV 50 ml @ 100 mls/hr IVPB Q12H [facility] Rx#: [id number] Vancomycin 1,500 mg/Ns 500 ml 1 500 ,500 mg In 500 ml @ 250 mls/hr IVPB Q12H [facility] Rx#:[id number] Output: Catheter Urine 600 850 750 Urethral Catheter 600 850 750 Patient Weight 07/09/25 23:59 Weight 106.8 kg
[2025-07-09] MEDS: AZITHROMYCIN IV 500 MG in SODIUM CHLORIDE 0.9% IV 250 ML IVPB (21:40)
[2025-07-10] VITALS (23 sets, daily range): BP systolic 84–151; BP diastolic 61–94; PULSE 68–127; RESP 13–26; TEMP 37.3–40.5; O2SAT 93–99
[2025-07-10 04:55] LABS: Hematocrit 34.5 % (42.0-52.0); Hemoglobin 11.6 g/dL (14.0-18.0); Immature Granulocyte Percent A 4.8 % (0-0.5); Immature Platelet Fraction Pct 13.1 % (0.9-11.2); Lymphocytes Absolute Auto 0.33 K/mm3 (0.9-3.2); Mean Corpuscular HGB Conc 33.6 g/dl (32-36); Mean Corpuscular Hemoglobin 32.0 pg (26-34); Mean Corpuscular Volume 95.0 fl (80-100); Nucleated Red Blood Cells Absolute Auto 0.020 K/mm3 (0.0-0.012); Nucleated Red Blood Cells Perc 0.3 % (0.0-0.2); Red Blood Count 3.63 M/mm3 (4.6-6.20); White Blood Count 7.9 K/mm3 (4.5-10.0)
[2025-07-10] MEDS: metroNIDAZOLE 500 MG/ISO 100ML 500 MG/100 ML BAG 100 MG IVPB ×2 (05:02→16:43)
[2025-07-10] MEDS: CENTRAL LINE FLUSH 10 ML IV PUSH ×3 (05:05→20:17)
[2025-07-10 05:07] LABS: Alanine Aminotransferase 92 U/L (6-50); Albumin Level 2.6 g/dL (3.5-5.1); Alkaline Phosphatase 136 U/L (38-126); Anion Gap 4 mmol/L (4-12); Aspartate Amino Transferase 80 U/L (17-59); Bilirubin,Total 0.7 mg/dL (0.2-1.3); Blood Urea Nitrogen 40 mg/dL (9-20); Calcium 7.2 mg/dL (8.4-10.2); Carbon Dioxide 24 mmol/L (22-30); Chloride 112 mmol/L (98-107); Estimated CRCL calculation 73 ml/min; Estimated Glomerular Filt Rate > 60; Glucose 120 mg/dL (65-110); Magnesium 2.5 mg/dL (1.6-2.3); Potassium 3.5 mmol/L (3.4-5.0); Sodium 140 mmol/L (137-145); Total Protein 5.3 g/dL (6.3-8.2)
[2025-07-10 05:19] LABS: CRP 18.4 mg/dL (<1.0)
[2025-07-10 05:51] LABS: Platelet Count Result 23 k/mm3 (150-375)
[2025-07-10 05:54] LABS: Poikilocytosis 1+
[2025-07-10 05:55] LABS: Anisocytosis 1+; Burr Cells 1+
[2025-07-10 05:56] LABS: Ovalocytes 1+; Schistocytes None Seen
[2025-07-10] MEDS: CALCIUM GLUC 2,000 MG/NS 100ML 2,000 MG/100 ML BAG 100 MG IVPB (08:25)
--- NOTE | 2025-07-10 08:52 | WPDINTPN ---
Progress Note: A&P Assessment and Plan (1) Septic shock: Code(s): A41.9 - Sepsis, unspecified organism; R65.21 - Severe sepsis with septic shock Status: Acute Assessment and Plan: Patient presented to the outside hospital in [facility] with complains of shortness of breath, abdominal bloating. -CTA chest abdomen and pelvis showed no pulmonary embolism, cholelithiasis with possible acute cholecystitis -ultrasound of right upper quadrant was negative for cholecystitis -UA suggestive of UTI and CT scan was negative for any kidney stones -patient was hypotensive at the outside hospital distal right receiving 30 mL/kg IV fluid bolus, central line was inserted and started on Levophed and transferred to the ICU for further manage Now patient is off of vasopressors and IV fluids. -07/06: Started on cefepime, vancomycin, azithromycin -07/07: Blood cultures have been obtained (blood cultures a call from outside hospital is growing E coli pansensitive Infectious disease following Patient is currently on cefepime Flagyl and azithromycin which will be continued (2) Right lower lobe pneumonia: Qualifiers: Pneumonia type: due to unspecified organism Qualified Code(s): J18.9 - Pneumonia, unspecified organism Code(s): J18.9 - Pneumonia, unspecified organism Status: Acute Assessment and Plan: Continue antibiotics as above, supplemental oxygen via high-flow therapy -respiratory panel will has been ordered and negative Add incentive spirometry Lasix for pulmonary edema (3) Abnormal computed tomography of gallbladder: Code(s): R93.2 - Abnormal findings on diagnostic imaging of liver and biliary tract Status: Acute Assessment and Plan: CTA abdomen and pelvis at the outside hospital showed cholelithiasis with associated gallbladder wall distention with acute cholecystitis might be likely cause. -elevated LFTs and bilirubin -07/07: RUQ ultrasound done and was negative -hepatitis panel is negative -07/09: Bilirubin has resolved, LFTs trending down (4) Congestive heart failure: Code(s): I50.9 - Heart failure, unspecified Status: Acute Assessment and Plan: Chest x-ray shows diffuse bilateral infiltrates. Patient had elevated BNP on presentation Echocardiogram shows EF of 25-30% Lasix IV x1 today Plan DVT prophylaxis: Lovenox Stress ulcer prophylaxis: Not indicated Nutrition: Diet ordered Code Status: Full code IS and Up in chair Discussed with patient and his spouse at bedside and updated them with patient's condition and plan of care. I answered all questions Critical Care Time Spent: 33 minutes Due to a high probability of clinically significant, life threatening deterioration, the patient required my highest level of preparedness to intervene emergently and I personally spent this critical care time directly and personally managing the patient. This critical care time included obtaining a history; examining the patient; pulse oximetry; ordering and review of studies; arranging urgent treatment with development of a management plan; evaluation of patient's response to treatment; frequent reassessment; and discussions with other providers. It was exclusive of separately billable procedures and treating other patients and teaching time. Please see Assessment and Plan section and the rest of the note for further information on patient assessment and treatment This dictation may have been done utilizing a voice recognition system. Attempts have been made to correct errors. However, there may be uncorrected grammatical, spelling, and recognitions errors present. Subjective Date/time seen: 07/10/25 Patient states he feels much better this morning. He denies any new complaints. He denies any nausea vomiting abdominal pain chest pain. He states his breathing is better. He denies any cough. He has been eating and drinking. He had episode of fever again last night. Vital signs have been stable. He is currently not on any infusions. He is on Airvo at 40 L flow Interval history: Reason for consult: Septic shock shortness on breath, pneumonia, abdominal bloating, gram negative bacteremia Review of Systems Review of Systems: All systems reviewed & are unremarkable except as noted in HPI and below Exam Narrative: General: Pleasant gentleman in no acute distress HEENT:? Pupils equal reactive, sclerae is clear, moist oral mucosa Neck:? Supple Respiratory:? Coarse breath sounds bilaterally, decreased at bases, no wheezing, IV slipped crackles Cardiac:? S1-S2 normal, regular rate and rhythm Abdomen:? Soft, nontender, nondistended with normoactive bowel sounds Extremities:? Bilateral pitting edema mild Neuro:? Patient awake, alert, oriented x3, nonfocal, answers to questions appropriately and follows simple commands in all extremities Skin:? Warm and dry, no skin lesions noted Psych:? Normal mentation and affect Objective Data Vital Signs Vital Signs: Vital Signs - 24 hr 07/09/25 09:00 07/09/25 09:17 07/09/25 10:00 Temperature 36.7 C Pulse Rate 93 78 Respiratory Rate 24 H 22 H Blood Pressure 106/75 97/74 L Pulse Oximetry 95 95 Oxygen Delivery Oxygen Flow Rate Fraction of Inspired Oxygen 07/09/25 10:00 07/09/25 10:00 07/09/25 11:25 Temperature Pulse Rate 74 74 Respiratory Rate Blood Pressure 97/74 L Pulse Oximetry Oxygen Delivery High Flow Therapy with Na Oxygen Flow Rate 18 Fraction of Inspired Oxygen 07/09/25 12:00 07/09/25 12:00 07/09/25 12:00 Temperature 37.6 C Pulse Rate 79 93 Respiratory Rate 18 Blood Pressure 114/77 Pulse Oximetry 100 96 Oxygen Delivery High Flow Therapy with Na Oxygen Flow Rate 40 Fraction of Inspired Oxygen 65 07/09/25 12:00 07/09/25 13:00 07/09/25 13:00 Temperature 38.3 C H 38.1 C H Pulse Rate 80 93 97 Respiratory Rate 29 H 18 Blood Pressure 114/77 103/71 103/71 Pulse Oximetry 96 97 Oxygen Delivery Oxygen Flow Rate Fraction of Inspired Oxygen 07/09/25 13:45 07/09/25 14:00 07/09/25 14:00 Temperature 38.3 C H 38.6 C H Pulse Rate 91 85 Respiratory Rate 25 H Blood Pressure 116/69 Pulse Oximetry 96 Oxygen Delivery Oxygen Flow Rate Fraction of Inspired Oxygen 07/09/25 14:00 07/09/25 14:45 07/09/25 15:00 Temperature 38.4 C H Pulse Rate 88 97 Respiratory Rate 29 H Blood Pressure 116/69 102/70 Pulse Oximetry 97 Oxygen Delivery Oxygen Flow Rate Fraction of Inspired Oxygen 07/09/25 15:01 07/09/25 15:57 07/09/25 16:00 Temperature 39.0 C H Pulse Rate 114 H Respiratory Rate Blood Pressure 106/76 Pulse Oximetry Oxygen Delivery High Flow Therapy with Na Oxygen Flow Rate 40 Fraction of Inspired Oxygen 07/09/25 16:00 07/09/25 16:00 07/09/25 16:00 Temperature 39.0 C H Pulse Rate 114 H 111 H Respiratory Rate 33 H Blood Pressure 106/76 Pulse Oximetry 97 97 Oxygen Delivery High Flow Therapy with Na Oxygen Flow Rate 40 Fraction of Inspired Oxygen 65 07/09/25 16:57 07/09/25 17:00 07/09/25 18:00 Temperature 38.4 C H Pulse Rate 99 99 Respiratory Rate 22 H 30 H Blood Pressure 93/64 L 97/65 L Pulse Oximetry 96 94 Oxygen Delivery Oxygen Flow Rate Fraction of Inspired Oxygen 07/09/25 18:00 07/09/25 19:00 07/09/25 20:00 Temperature 38.2 C H Pulse Rate 98 97 Respiratory Rate 29 H Blood Pressure 106/72 Pulse Oximetry 93 96 Oxygen Delivery High Flow Therapy with Na Oxygen Flow Rate 40 Fraction of Inspired Oxygen 65 07/09/25 20:00 07/09/25 20:00 07/09/25 20:17 Temperature 38.2 C H Pulse Rate 94 94 93 Respiratory Rate 28 H 22 H Blood Pressure 98/60 L Pulse Oximetry 94 94 Oxygen Delivery High Flow Therapy with Na Oxygen Flow Rate 40 Fraction of Inspired Oxygen 70 07/09/25 21:00 07/09/25 22:00 07/09/25 23:00 Temperature 37.7 C H 37.7 C H Pulse Rate 90 93 86 Respiratory Rate 26 H 21 H 16 Blood Pressure 95/66 L 99/60 L 89/59 L Pulse Oximetry 94 97 100 Oxygen Delivery Oxygen Flow Rate Fraction of Inspired Oxygen 07/10/25 00:00 07/10/25 00:00 07/10/25 00:00 Temperature 37.7 C H Pulse Rate 77 77 Respiratory Rate 16 Blood Pressure 102/63 Pulse Oximetry 96 98 Oxygen Delivery High Flow Therapy with Na Oxygen Flow Rate 40 Fraction of Inspired Oxygen 65 07/10/25 01:00 07/10/25 01:51 07/10/25 03:00 Temperature Pulse Rate 83 78 72 Respiratory Rate 18 16 16 Blood Pressure 102/63 102/63 105/68 Pulse Oximetry 99 98 98 Oxygen Delivery Oxygen Flow Rate Fraction of Inspired Oxygen 07/10/25 03:58 07/10/25 04:00 07/10/25 04:00 Temperature 37.4 C Pulse Rate 77 75 Respiratory Rate 23 H Blood Pressure 117/76 Pulse Oximetry 99 98 Oxygen Delivery High Flow Therapy with Na Oxygen Flow Rate 40 Fraction of Inspired Oxygen 65 07/10/25 05:00 07/10/25 06:00 Temperature Pulse Rate 74 68 Respiratory Rate 22 H 20 Blood Pressure 100/66 138/69 Pulse Oximetry 96 99 Oxygen Delivery Oxygen Flow Rate Fraction of Inspired Oxygen Intake/Output Intake/Output: Intake & Output 07/07/25 07/08/25 07/09/25 07/10/25 23:59 23:59 23:59 23:59 Intake Total 2036.9 2901.5 1394 340 Output Total 1400 1325 2200 800 Balance 636.9 1576.5 -806 -460 Meds/Results Medications: Active Medications Generic Name Dose Route Start Last Admin Trade Name Freq PRN Reason Stop Dose Admin Acetaminophen 650 mg 07/06/25 22:57 07/09/25 13:45 Acetaminophen 325 Mg Tablet PO 650 mg Q4H PRN Administration Mild Pain (1-3) or Fever Al Hydrox/Mg Hydrox/Simethicone 30 ml 07/06/25 22:57 Mag Hydrox/Al Hydrox/Simeth 30 Ml Udc PO QID PRN Dyspepsia Bisacodyl 5 mg 07/06/25 22:57 Bisacodyl 5 Mg Tablet Ec PO DAILY PRN Constipation Dextrose 12.5 gm 07/06/25 23:18 Dextrose 50% 25 Gm/50 Ml Syringe IV PUSH PRN PRN Hypoglycemia Protocol Enoxaparin Sodium 40 mg 07/07/25 09:00 07/08/25 07:47 Enoxaparin 40 Mg/0.4 Ml Syringe SUB-Q Not Given On Hold: 07/08/25 10:03 DAILY XENIA Fluticasone Propionate 1 spray 07/07/25 09:00 07/09/25 21:40 Fluticasone Propionate 0.05% Na Spr 16 Gm Btl (*Bkc) NASAL 1 spray Q12HR XENIA Administration Glucagon 1 mg 07/06/25 23:18 Glucagon For Inj 1 Mg Vial IM PRN PRN Hypoglycemia Protocol Glucose 15 gm 07/06/25 23:18 Glucose Oral Gel 15 Gm Of Glucse In 37.5 Gm Tube PO PRN PRN Hypoglycemia Protocol Cefepime HCl 2 gm/ Sodium 50 mls @ 100 mls/hr 07/07/25 09:00 07/09/25 22:41 Chloride IVPB Infused Q12H XENIA Infusion Azithromycin 500 mg/ Sodium 250 mls @ 250 mls/hr 07/07/25 22:00 07/09/25 22:41 Chloride IVPB 07/10/25 22:59 Infused Q24H XENIA Infusion Dextrose 1,000 mls @ 100 mls/hr 07/06/25 23:18 Dextrose 5% 1,000 Ml IVPB PRN PRN Hypoglycemia Protocol Ibuprofen 400 mg/ Sodium 104 mls @ 208 mls/hr 07/07/25 17:27 07/09/25 16:27 Chloride IVPB Infused Q8H PRN Infusion Pain Rated 4-6 Metronidazole 500 mg in 100 mls @ 100 mls/hr 07/09/25 14:00 07/10/25 05:45 Flagyl 500 Mg/Iso Soln 100 Ml IVPB Infused Q8HR XENIA Infusion Insulin Aspart 3 - 6 units 07/07/25 08:00 07/10/25 07:18 Insulin Aspart (*Bkc) 100 Units/Ml SUB-Q Not Given TIDWM [facility] Protocol Ondansetron HCl 4 mg 07/06/25 22:57 07/09/25 13:54 Ondansetron Inj 4 Mg/2 Ml Vial IV PUSH 4 mg Q6H PRN Administration Nausea And Vomiting Perflutren Lipid Microsphere 0 ml 07/08/25 07:18 Perflutren Lipid Microspheres 1.5 Ml Vial Diluted To 10 Ml Total Volume IV PUSH 07/11/25 07:18 ONCE PRN adequate visualization Protocol Sodium Chloride 10 ml 07/07/25 14:00 07/10/25 05:05 Central Line Flush IV PUSH 10 ml Q8HR XENIA Administration Sodium Chloride 20 ml 07/07/25 06:38 Central Line Flush IV PUSH PRN PRN after blood draws Radiology Results: ITS Impressions Upper Quadrant Ultrasound 07/09/25 14:30 IMPRESSION: 1. Normal right upper quadrant ultrasound with no intra or extrahepatic biliary ductal dilation. Chest X-Ray 07/10/25 08:10 IMPRESSION: 1. Unchanged elevation right hemidiaphragm opacity bilateral lower lung zones which could represent atelectasis or pneumonia. Labs Labs: Laboratory Results - last 24 hr 07/07/25 07/09/25 07/09/25 02:15 11:57 16:06 WBC RBC Hgb Hct MCV MCH MCHC RDW Plt Count MPV Immature Gran % (Auto) Neut % (Auto) Lymph % (Auto) Banks % (Auto) Eos % (Auto) Baso % (Auto) Lymph # (Auto) [place] # (Auto) Eos # (Auto) Baso # (Auto) Abs Immat Gran (auto) Absolute Neuts (auto) Absolute Nucleated RBC Band Neutrophils % Nucleated RBC % Platelet Estimate % Immature Plt Fraction Poikilocytosis Anisocytosis Ovalocytes [place] Cells Schistocytes Sodium Potassium Chloride Carbon Dioxide Anion Gap BUN Creatinine Estim Creat Clear Calc Estimated GFR Glucose POC Capillary Glucose 98 154 H Lactic Acid Calcium Phosphorus Magnesium Total Bilirubin AST ALT Alkaline Phosphatase C-Reactive Protein Total Protein Albumin Vancomycin Trough Chlamy pneumoniae PCR Not detected Adenovirus (PCR) Not detected B. pertussis DNA (PCR) Not detected B.parapertussis DNA PCR Not detected Coronavirus OC43 (PCR) Not detected Coronavirus HKU1 (PCR) Not detected Coronavirus 229E (PCR) Not detected Coronavirus NL63 (PCR) Not detected Human Metapneumovir PCR Not detected Influenza A (H1) PCR Not detected Influ A (H1/09) PCR Not detected Influenza A (H3) PCR Not detected Influenza Type A (PCR) Not detected Influenza Type B (PCR) Not detected M. pneumoniae (PCR) Not detected Parainfluenza 1 (PCR) Not detected Parainfluenza 2 (PCR) Not detected Parainfluenza 3 (PCR) Not detected Parainfluenza 4 (PCR) Not detected RSV (PCR) Not detected Entero/Rhino (PCR) Not detected SARS-CoV-2 (PCR) Not detected 07/09/25 07/09/25 07/10/25 21:32 21:46 04:39 WBC 7.9 RBC 3.63 L Hgb 11.6 L Hct 34.5 L MCV 95.0 MCH 32.0 MCHC 33.6 RDW 14.2 Plt Count 23 L* MPV 10.8 H Immature Gran % (Auto) 4.8 H Neut % (Auto) 80.0 H Lymph % (Auto) 4.2 L [place] % (Auto) 9.7 H Eos % (Auto) 0.4 Baso % (Auto) 0.9 Lymph # (Auto) 0.33 L [place] # (Auto) 0.8 H Eos # (Auto) 0.0 Baso # (Auto) 0.1 Abs Immat Gran (auto) 0.38 H Absolute Neuts (auto) 6.4 Absolute Nucleated RBC 0.020 H Band Neutrophils % Not Reportable Nucleated RBC % 0.3 H Platelet Estimate Decreased % Immature Plt Fraction 13.1 H Poikilocytosis 1+ Anisocytosis 1+ Ovalocytes 1+ [place] Cells 1+ Schistocytes None seen Sodium 140 Potassium 3.5 Chloride 112 H Carbon Dioxide 24 Anion Gap 4 BUN 40 H Creatinine 0.94 Estim Creat Clear Calc 73 Estimated GFR > 60 Glucose 120 H POC Capillary Glucose 177 H Lactic Acid 1.1 Calcium 7.2 L Phosphorus 1.7 L Magnesium 2.5 H Total Bilirubin 0.7 AST 80 H ALT 92 H Alkaline Phosphatase 136 H C-Reactive Protein 18.4 H Total Protein 5.3 L Albumin 2.6 L Vancomycin Trough 15.5 Chlamy pneumoniae PCR Adenovirus (PCR) B. pertussis DNA (PCR) B.parapertussis DNA PCR Coronavirus OC43 (PCR) Coronavirus HKU1 (PCR) Coronavirus 229E (PCR) Coronavirus NL63 (PCR) Human Metapneumovir PCR Influenza A (H1) PCR Influ A (H1/09) PCR Influenza A (H3) PCR Influenza Type A (PCR) Influenza Type B (PCR) M. pneumoniae (PCR) Parainfluenza 1 (PCR) Parainfluenza 2 (PCR) Parainfluenza 3 (PCR) Parainfluenza 4 (PCR) RSV (PCR) Entero/Rhino (PCR) SARS-CoV-2 (PCR) Quality VTE Prophylaxis VTE prophylaxis: pharmacologic ordered
--- NOTE | 2025-07-10 09:02 | P.PNINF_ITS ---
Progress Note: A&P Assessment and Plan (1) Gram negative septicemia: Code(s): A41.50 - Gram-negative sepsis, unspecified Status: Acute (2) Septic shock: Code(s): A41.9 - Sepsis, unspecified organism; R65.21 - Severe sepsis with septic shock Status: Acute (3) Abdominal pain in male: Code(s): R10.9 - Unspecified abdominal pain Status: Acute (4) Diarrhea: Code(s): R19.7 - Diarrhea, unspecified Status: Acute (5) Elevated LFTs: Code(s): R79.89 - Other specified abnormal findings of blood chemistry Status: Acute (6) Acute hypoxic respiratory failure: Code(s): J96.01 - Acute respiratory failure with hypoxia Status: Acute (7) Thrombocytopenia: Code(s): D69.6 - Thrombocytopenia, unspecified Status: Acute (8) Ejection fraction < 50%: Status: Acute Plan # Pansensitive E coli bacteremia associated with acute onset of abdominal complaints including bloating, anorexia, limited emesis, and subsequent diarrhea. Suspect GI pathogen. -- blood cultures performed on presentation to this institution also with Gram- negative rods and suspect E coli but await further identification. -- Source of the E coli yet to be determined. Consider GI source but outside institution CT scan and subsequent gallbladder ultrasound at [facility] has failed to identify a specific source. -- mild transaminitis and resolved mild hyperbilirubinemia. Original concern based on outside CT scan for acute cholecystitis; however, current ultrasound does not support diagnosis. -- prominent GI symptoms and lack of obvious chest x-ray findings suggest pneumonia as a cause of Gram-negative bacteremia less likely. -- persistence of fever despite pansensitive E coli on appropriate antibiotics might suggest high-grade bacteremia with slow response to current antibiotics. Repeat CT scan of chest and abdomen and pelvis indicated. # Severe sepsis with septic shock. -- now off of pressors. # Hypoxemia. -- may be a manifestation of sepsis, heart failure with pulmonary edema, or pneumonia. # Diminished ejection fraction. # Mild transaminitis. -- improving. Bilirubin normalized. # Thrombocytopenia. -- of platelet count down to 23 today. Plan: -- with original blood cultures positive for pansensitive E coli will discontinue metronidazole and azithromycin; however, until further Gram-negative afshan identification from this institution would continue with broader spectrum cefepime. -- with today's fever and rigors will repeat blood cultures. -- plan to repeat CT of abdomen and pelvis and would include chest. If the study is unremarkable may need SHELLY. -- await outstanding stool studies. -- continue to monitor platelets. -- discussed the above with patient, his was at bedside, and Dr. Flores. Further recommendations to follow. Patient was seen via video telehealth consultation with the assistance of staff. Chart, data, and patient independently reviewed. Patient was located at [facility] while I was located in my [place] office. Received verbal consent from patient. Subjective Date/time seen: 07/10/25 09:02 Interval history: * 07/10/2025: T-max of 103? this afternoon with rigors. O2 saturation 98% on 40% high-flow nasal cannula. Off of pressors. White blood cell count normal. GFR greater than 60. * Blood cultures 07/07 at outside hospital: pansensitive E coli. * Blood cultures 07/07: Gram-negative rods * Blood cultures 07/08: Pending * Stool culture 07/08: pending * Cefepime 2 g IV q.12 hours 07/07 -- * Azithromycin 500 mg IV Q 24 hours 07/07-- * Metronidazole 500 mg IV Q 8 hours 07/09-- Review of Systems Review of Systems: All systems reviewed & are unremarkable except as noted in HPI and below Exam Narrative: Awake and alert and able to answer questions. Utilizing high-flow nasal cannula. at bedside. No conjunctivitis. Some tachypnea but not in respiratory distress. Abdomen with some distention. Last bowel movement which was loose occurred yesterday. No bowel movement since. No evidence of rash. No pruritus. Left IJ present and placed at outside institution. Objective Data Vital Signs Vital Signs: Vital Signs - 24 hr 07/09/25 09:17 07/09/25 10:00 07/09/25 10:00 Temperature 98.1 F Pulse Rate 78 74 Respiratory Rate 22 H Blood Pressure 97/74 L Pulse Oximetry 95 Oxygen Delivery Oxygen Flow Rate Fraction of Inspired Oxygen 07/09/25 10:00 07/09/25 11:25 07/09/25 12:00 Temperature 99.6 F Pulse Rate 74 79 Respiratory Rate 18 Blood Pressure 97/74 L 114/77 Pulse Oximetry 100 Oxygen Delivery High Flow Therapy with Na Oxygen Flow Rate 18 Fraction of Inspired Oxygen 07/09/25 12:00 07/09/25 12:00 07/09/25 12:00 Temperature Pulse Rate 93 80 Respiratory Rate Blood Pressure 114/77 Pulse Oximetry 96 Oxygen Delivery High Flow Therapy with Na Oxygen Flow Rate 40 Fraction of Inspired Oxygen 65 07/09/25 13:00 07/09/25 13:00 07/09/25 13:45 Temperature 100.9 F H 100.6 F H 101 F H Pulse Rate 93 97 Respiratory Rate 29 H 18 Blood Pressure 103/71 103/71 Pulse Oximetry 96 97 Oxygen Delivery Oxygen Flow Rate Fraction of Inspired Oxygen 07/09/25 14:00 07/09/25 14:00 07/09/25 14:00 Temperature 101.4 F H Pulse Rate 91 85 88 Respiratory Rate 25 H Blood Pressure 116/69 116/69 Pulse Oximetry 96 Oxygen Delivery Oxygen Flow Rate Fraction of Inspired Oxygen 07/09/25 14:45 07/09/25 15:00 07/09/25 15:01 Temperature 101.1 F H Pulse Rate 97 Respiratory Rate 29 H Blood Pressure 102/70 Pulse Oximetry 97 Oxygen Delivery High Flow Therapy with Na Oxygen Flow Rate 40 Fraction of Inspired Oxygen 07/09/25 15:57 07/09/25 16:00 07/09/25 16:00 Temperature 102.2 F H 102.2 F H Pulse Rate 114 H 114 H Respiratory Rate 33 H Blood Pressure 106/76 106/76 Pulse Oximetry 97 Oxygen Delivery Oxygen Flow Rate Fraction of Inspired Oxygen 07/09/25 16:00 07/09/25 16:00 07/09/25 16:57 Temperature 101.1 F H Pulse Rate 111 H Respiratory Rate Blood Pressure Pulse Oximetry 97 Oxygen Delivery High Flow Therapy with Na Oxygen Flow Rate 40 Fraction of Inspired Oxygen 65 07/09/25 17:00 07/09/25 18:00 07/09/25 18:00 Temperature Pulse Rate 99 99 98 Respiratory Rate 22 H 30 H Blood Pressure 93/64 L 97/65 L Pulse Oximetry 96 94 Oxygen Delivery Oxygen Flow Rate Fraction of Inspired Oxygen 07/09/25 19:00 07/09/25 20:00 07/09/25 20:00 Temperature 100.8 F H Pulse Rate 97 94 Respiratory Rate 29 H Blood Pressure 106/72 Pulse Oximetry 93 96 Oxygen Delivery High Flow Therapy with Na Oxygen Flow Rate 40 Fraction of Inspired Oxygen 65 07/09/25 20:00 07/09/25 20:17 07/09/25 21:00 Temperature 100.8 F H Pulse Rate 94 93 90 Respiratory Rate 28 H 22 H 26 H Blood Pressure 98/60 L 95/66 L Pulse Oximetry 94 94 94 Oxygen Delivery High Flow Therapy with Na Oxygen Flow Rate 40 Fraction of Inspired Oxygen 70 07/09/25 22:00 07/09/25 23:00 07/10/25 00:00 Temperature 99.9 F H 99.9 F H Pulse Rate 93 86 Respiratory Rate 21 H 16 Blood Pressure 99/60 L 89/59 L Pulse Oximetry 97 100 96 Oxygen Delivery High Flow Therapy with Na Oxygen Flow Rate 40 Fraction of Inspired Oxygen 65 07/10/25 00:00 07/10/25 00:00 07/10/25 01:00 Temperature 99.9 F H Pulse Rate 77 77 83 Respiratory Rate 16 18 Blood Pressure 102/63 102/63 Pulse Oximetry 98 99 Oxygen Delivery Oxygen Flow Rate Fraction of Inspired Oxygen 07/10/25 01:51 07/10/25 03:00 07/10/25 03:58 Temperature Pulse Rate 78 72 Respiratory Rate 16 16 Blood Pressure 102/63 105/68 Pulse Oximetry 98 98 99 Oxygen Delivery High Flow Therapy with Na Oxygen Flow Rate 40 Fraction of Inspired Oxygen 65 07/10/25 04:00 07/10/25 04:00 07/10/25 05:00 Temperature 99.4 F Pulse Rate 77 75 74 Respiratory Rate 23 H 22 H Blood Pressure 117/76 100/66 Pulse Oximetry 98 96 Oxygen Delivery Oxygen Flow Rate Fraction of Inspired Oxygen 07/10/25 06:00 07/10/25 08:00 07/10/25 08:00 Temperature Pulse Rate 68 74 74 Respiratory Rate 20 23 H Blood Pressure 138/69 Pulse Oximetry 99 98 Oxygen Delivery High Flow Therapy with Na Oxygen Flow Rate 40 Fraction of Inspired Oxygen 60 07/10/25 08:00 Temperature 99.1 F Pulse Rate 74 Respiratory Rate 23 H Blood Pressure 113/76 Pulse Oximetry 98 Oxygen Delivery Oxygen Flow Rate Fraction of Inspired Oxygen Intake/Output Intake/Output: Intake & Output 07/07/25 07/08/25 07/09/25 07/10/25 23:59 23:59 23:59 23:59 Intake Total 2036.9 2901.5 1394 940 Output Total 1400 1325 2200 800 Balance 636.9 1576.5 -806 140 Meds/Results Medications: Active Medications Generic Name Dose Route Start Last Admin Trade Name Freq PRN Reason Stop Dose Admin Acetaminophen 650 mg 07/06/25 22:57 07/09/25 13:45 Acetaminophen 325 Mg Tablet PO 650 mg Q4H PRN Administration Mild Pain (1-3) or Fever Al Hydrox/Mg Hydrox/Simethicone 30 ml 07/06/25 22:57 Mag Hydrox/Al Hydrox/Simeth 30 Ml Udc PO QID PRN Dyspepsia Bisacodyl 5 mg 07/06/25 22:57 Bisacodyl 5 Mg Tablet Ec PO DAILY PRN Constipation Dextrose 12.5 gm 07/06/25 23:18 Dextrose 50% 25 Gm/50 Ml Syringe IV PUSH PRN PRN Hypoglycemia Protocol Enoxaparin Sodium 40 mg 07/07/25 09:00 07/08/25 07:47 Enoxaparin 40 Mg/0.4 Ml Syringe SUB-Q Not Given On Hold: 07/08/25 10:03 DAILY XENIA Fluticasone Propionate 1 spray 07/07/25 09:00 07/09/25 21:40 Fluticasone Propionate 0.05% Na Spr 16 Gm Btl (*Bkc) NASAL 1 spray Q12HR XENIA Administration Glucagon 1 mg 07/06/25 23:18 Glucagon For Inj 1 Mg Vial IM PRN PRN Hypoglycemia Protocol Glucose 15 gm 07/06/25 23:18 Glucose Oral Gel 15 Gm Of Glucse In 37.5 Gm Tube PO PRN PRN Hypoglycemia Protocol Cefepime HCl 2 gm/ Sodium 50 mls @ 100 mls/hr 07/07/25 09:00 07/09/25 22:41 Chloride IVPB Infused Q12H XENIA Infusion Azithromycin 500 mg/ Sodium 250 mls @ 250 mls/hr 07/07/25 22:00 07/09/25 22:41 Chloride IVPB 07/10/25 22:59 Infused Q24H EXNIA Infusion Dextrose 1,000 mls @ 100 mls/hr 07/06/25 23:18 Dextrose 5% 1,000 Ml IVPB PRN PRN Hypoglycemia Protocol Ibuprofen 400 mg/ Sodium 104 mls @ 208 mls/hr 07/07/25 17:27 07/09/25 16:27 Chloride IVPB Infused Q8H PRN Infusion Pain Rated 4-6 Metronidazole 500 mg in 100 mls @ 100 mls/hr 07/09/25 14:00 07/10/25 05:45 Flagyl 500 Mg/Iso Soln 100 Ml IVPB Infused Q8HR XENIA Infusion Insulin Aspart 3 - 6 units 07/07/25 08:00 07/10/25 07:18 Insulin Aspart (*Bkc) 100 Units/Ml SUB-Q Not Given TIDWM [facility] Protocol Ondansetron HCl 4 mg 07/06/25 22:57 07/09/25 13:54 Ondansetron Inj 4 Mg/2 Ml Vial IV PUSH 4 mg Q6H PRN Administration Nausea And Vomiting Perflutren Lipid Microsphere 0 ml 07/08/25 07:18 Perflutren Lipid Microspheres 1.5 Ml Vial Diluted To 10 Ml Total Volume IV PUSH 07/11/25 07:18 ONCE PRN adequate visualization Protocol Sodium Chloride 10 ml 07/07/25 14:00 07/10/25 05:05 Central Line Flush IV PUSH 10 ml Q8HR XENIA Administration Sodium Chloride 20 ml 07/07/25 06:38 Central Line Flush IV PUSH PRN PRN after blood draws Radiology Results: ITS Impressions Upper Quadrant Ultrasound 07/09/25 14:30 IMPRESSION: 1. Normal right upper quadrant ultrasound with no intra or extrahepatic biliary ductal dilation. Chest X-Ray 07/10/25 08:10 IMPRESSION: 1. Unchanged elevation right hemidiaphragm opacity bilateral lower lung zones which could represent atelectasis or pneumonia. Labs Labs: Laboratory Results - last 24 hr 07/07/25 07/09/25 07/09/25 02:15 11:57 16:06 WBC RBC Hgb Hct MCV MCH MCHC RDW Plt Count MPV Immature Gran % (Auto) Neut % (Auto) Lymph % (Auto) [place] % (Auto) Eos % (Auto) Baso % (Auto) Lymph # (Auto) [place] # (Auto) Eos # (Auto) Baso # (Auto) Abs Immat Gran (auto) Absolute Neuts (auto) Absolute Nucleated RBC Band Neutrophils % Nucleated RBC % Platelet Estimate % Immature Plt Fraction Poikilocytosis Anisocytosis Ovalocytes [place] Cells Schistocytes Sodium Potassium Chloride Carbon Dioxide Anion Gap BUN Creatinine Estim Creat Clear Calc Estimated GFR Glucose POC Capillary Glucose 98 154 H Lactic Acid Calcium Phosphorus Magnesium Total Bilirubin AST ALT Alkaline Phosphatase C-Reactive Protein Total Protein Albumin Vancomycin Trough Chlamy pneumoniae PCR Not detected Adenovirus (PCR) Not detected B. pertussis DNA (PCR) Not detected B.parapertussis DNA PCR Not detected Coronavirus OC43 (PCR) Not detected Coronavirus HKU1 (PCR) Not detected Coronavirus 229E (PCR) Not detected Coronavirus NL63 (PCR) Not detected Human Metapneumovir PCR Not detected Influenza A (H1) PCR Not detected Influ A (H1) PCR Not detected Influenza A (H3) PCR Not detected Influenza Type A (PCR) Not detected Influenza Type B (PCR) Not detected M. pneumoniae (PCR) Not detected Parainfluenza 1 (PCR) Not detected Parainfluenza 2 (PCR) Not detected Parainfluenza 3 (PCR) Not detected Parainfluenza 4 (PCR) Not detected RSV (PCR) Not detected Entero/Rhino (PCR) Not detected SARS-CoV-2 (PCR) Not detected 07/09/25 07/09/25 07/10/25 21:32 21:46 04:39 WBC 7.9 RBC 3.63 L Hgb 11.6 L Hct 34.5 L MCV 95.0 MCH 32.0 MCHC 33.6 RDW 14.2 Plt Count 23 L* MPV 10.8 H Immature Gran % (Auto) 4.8 H Neut % (Auto) 80.0 H Lymph % (Auto) 4.2 L [place] % (Auto) 9.7 H Eos % (Auto) 0.4 Baso % (Auto) 0.9 Lymph # (Auto) 0.33 L [place] # (Auto) 0.8 H Eos # (Auto) 0.0 Baso # (Auto) 0.1 Abs Immat Gran (auto) 0.38 H Absolute Neuts (auto) 6.4 Absolute Nucleated RBC 0.020 H Band Neutrophils % Not Reportable Nucleated RBC % 0.3 H Platelet Estimate Decreased % Immature Plt Fraction 13.1 H Poikilocytosis 1+ Anisocytosis 1+ Ovalocytes 1+ [place] Cells 1+ Schistocytes None seen Sodium 140 Potassium 3.5 Chloride 112 H Carbon Dioxide 24 Anion Gap 4 BUN 40 H Creatinine 0.94 Estim Creat Clear Calc 73 Estimated GFR > 60 Glucose 120 H POC Capillary Glucose 177 H Lactic Acid 1.1 Calcium 7.2 L Phosphorus 1.7 L Magnesium 2.5 H Total Bilirubin 0.7 AST 80 H ALT 92 H Alkaline Phosphatase 136 H C-Reactive Protein 18.4 H Total Protein 5.3 L Albumin 2.6 L Vancomycin Trough 15.5 Chlamy pneumoniae PCR Adenovirus (PCR) B. pertussis DNA (PCR) B.parapertussis DNA PCR Coronavirus OC43 (PCR) Coronavirus HKU1 (PCR) Coronavirus 229E (PCR) Coronavirus NL63 (PCR) Human Metapneumovir PCR Influenza A (H1) PCR Influ A (H1/09) PCR Influenza A (H3) PCR Influenza Type A (PCR) Influenza Type B (PCR) M. pneumoniae (PCR) Parainfluenza 1 (PCR) Parainfluenza 2 (PCR) Parainfluenza 3 (PCR) Parainfluenza 4 (PCR) RSV (PCR) Entero/Rhino (PCR) SARS-CoV-2 (PCR)
[2025-07-10] MEDS: FUROSEMIDE INJ 40 MG/4 ML VIAL IV PUSH (09:06)
[2025-07-10] MEDS: CEFEPIME 2 GM in SODIUM CHLORIDE 0.9% IV 50 ML 100 ML IVPB ×2 (09:06→16:44)
[2025-07-10] MEDS: POTASSIUM BICARBONATE 25 MEQ TABEF PO (09:06)
[2025-07-10] MEDS: POTASSIUM/PHOSPHORUS/SODIUM 1.5 GM PACKET 1 PACKET PO (09:06)
[2025-07-10] MEDS: FLUTICASONE PROPIONATE 0.05% NA SPR 16 GM BTL (*BKC) 1 SPRAY NASAL ×2 (09:07→20:14)
[2025-07-10] MEDS: ACETAMINOPHEN 325 MG TABLET 650 MG PO (11:30)
--- NOTE | 2025-07-10 12:50 | PCOTNOTE ---
Per RN, Patient not to be seen this P.M. Patient has a high fever, not feeling well. Try back tomorrow.
[2025-07-10] MEDS: IBUPROFEN IV 400 MG in SODIUM CHLORIDE 0.9% IV 100 ML 208 MG IVPB (14:06)
--- NOTE | 2025-07-10 14:32 | PM.PNCARD ---
Progress Note: A&P Assessment and Plan (1) Acute systolic heart failure: Code(s): I50.21 - Acute systolic (congestive) heart failure Status: Acute (2) Bradycardia: Code(s): R00.1 - Bradycardia, unspecified Status: Acute (3) HLD (hyperlipidemia): Qualifiers: Hyperlipidemia type: mixed hyperlipidemia Qualified Code(s): E78.2 - Mixed hyperlipidemia Code(s): E78.5 - Hyperlipidemia, unspecified Status: Acute (4) HTN (hypertension): Qualifiers: Hypertension type: primary hypertension Qualified Code(s): I10 - Essential (primary) hypertension Code(s): I10 - Essential (primary) hypertension Status: Acute Plan Diagnosis: New onset acute systolic heart failure with LVEF of 25-30% Family history of CAD on father side Hypertension Hyperlipidemia Paroxysmal AFib status post ablation in 2023 Septic shock secondary; gram-negative bacteremia on IV antibiotics Thrombocytopenia-platelet count 38 Plan: -TTE from outpatient clinic dated January, reports normal LVEF and no significant valvular pathology suggesting the drop in EF is new. Start guideline directed medical therapy as blood pressure tolerates. Add metoprolol 12.5 mg p.o. b.i.d. will wait before adding other guideline directed therapies as patient is currently septic and beta not want to make him hypotensive -At this time he is acutely sick with Gram-negative sepsis/septic shock and also has severe thrombocytopenia. He remains febrile. Recommend ischemia evaluation after he recovers from his acute illness -Check and replace electrolytes to keep potassium greater than 4 and magnesium greater than 2 -No antiplatelet agents given thrombocytopenia (21,000 today, down from 38,000 eight thousand yesterday) -Check NT proBNP and trend troponin -Management of other medical problems per primary team Subjective Date/time seen: 07/10/25 14:32 Interval history: Reason for encounter: New cardiomyopathy with LVEF of 25% Relevant history: He remains febrile. No chest pain, dizziness, lightheadedness, shortness of breath. Review of Systems Cardiovascular: Comments: As per HPI Respiratory: Comments: As per HPI Exam Narrative: General: Alert oriented x3, no acute distress Neck: Supple, JVD + Chest: Bilaterally clear to auscultation, no rales or rhonchi Cardiac: S1, S2 +, regular rate, regular rhythm, no murmurs or rubs Extremities: Bilateral lower extremity edema 1+, no skin rash Neurologic: Alert and oriented x3, no focal neurological deficits Objective Data Vital Signs Vital Signs: Vital Signs - 24 hr 07/09/25 14:45 07/09/25 15:00 07/09/25 15:01 Temperature 38.4 C H Pulse Rate 97 Respiratory Rate 29 H Blood Pressure 102/70 Pulse Oximetry 97 Oxygen Delivery High Flow Therapy with Na Oxygen Flow Rate 40 Fraction of Inspired Oxygen 07/09/25 15:57 07/09/25 16:00 07/09/25 16:00 Temperature 39.0 C H 39.0 C H Pulse Rate 114 H 114 H Respiratory Rate 33 H Blood Pressure 106/76 106/76 Pulse Oximetry 97 Oxygen Delivery Oxygen Flow Rate Fraction of Inspired Oxygen 07/09/25 16:00 07/09/25 16:00 07/09/25 16:57 Temperature 38.4 C H Pulse Rate 111 H Respiratory Rate Blood Pressure Pulse Oximetry 97 Oxygen Delivery High Flow Therapy with Na Oxygen Flow Rate 40 Fraction of Inspired Oxygen 65 07/09/25 17:00 07/09/25 18:00 07/09/25 18:00 Temperature Pulse Rate 99 99 98 Respiratory Rate 22 H 30 H Blood Pressure 93/64 L 97/65 L Pulse Oximetry 96 94 Oxygen Delivery Oxygen Flow Rate Fraction of Inspired Oxygen 07/09/25 19:00 07/09/25 20:00 07/09/25 20:00 Temperature 38.2 C H Pulse Rate 97 94 Respiratory Rate 29 H Blood Pressure 106/72 Pulse Oximetry 93 96 Oxygen Delivery High Flow Therapy with Na Oxygen Flow Rate 40 Fraction of Inspired Oxygen 65 07/09/25 20:00 07/09/25 20:17 07/09/25 21:00 Temperature 38.2 C H Pulse Rate 94 93 90 Respiratory Rate 28 H 22 H 26 H Blood Pressure 98/60 L 95/66 L Pulse Oximetry 94 94 94 Oxygen Delivery High Flow Therapy with Na Oxygen Flow Rate 40 Fraction of Inspired Oxygen 70 07/09/25 22:00 07/09/25 23:00 07/10/25 00:00 Temperature 37.7 C H 37.7 C H Pulse Rate 93 86 Respiratory Rate 21 H 16 Blood Pressure 99/60 L 89/59 L Pulse Oximetry 97 100 96 Oxygen Delivery High Flow Therapy with Na Oxygen Flow Rate 40 Fraction of Inspired Oxygen 65 07/10/25 00:00 07/10/25 00:00 07/10/25 01:00 Temperature 37.7 C H Pulse Rate 77 77 83 Respiratory Rate 16 18 Blood Pressure 102/63 102/63 Pulse Oximetry 98 99 Oxygen Delivery Oxygen Flow Rate Fraction of Inspired Oxygen 07/10/25 01:51 07/10/25 03:00 07/10/25 03:58 Temperature Pulse Rate 78 72 Respiratory Rate 16 16 Blood Pressure 102/63 105/68 Pulse Oximetry 98 98 99 Oxygen Delivery High Flow Therapy with Na Oxygen Flow Rate 40 Fraction of Inspired Oxygen 65 07/10/25 04:00 07/10/25 04:00 07/10/25 05:00 Temperature 37.4 C Pulse Rate 77 75 74 Respiratory Rate 23 H 22 H Blood Pressure 117/76 100/66 Pulse Oximetry 98 96 Oxygen Delivery Oxygen Flow Rate Fraction of Inspired Oxygen 07/10/25 06:00 07/10/25 08:00 07/10/25 08:00 Temperature Pulse Rate 68 74 74 Respiratory Rate 20 23 H Blood Pressure 138/69 Pulse Oximetry 99 98 Oxygen Delivery High Flow Therapy with Na Oxygen Flow Rate 40 Fraction of Inspired Oxygen 60 07/10/25 08:00 07/10/25 08:46 07/10/25 10:00 Temperature 37.3 C Pulse Rate 74 68 80 Respiratory Rate 23 H 18 Blood Pressure 113/76 Pulse Oximetry 98 98 Oxygen Delivery High Flow Therapy with Na Oxygen Flow Rate 40 Fraction of Inspired Oxygen 72 07/10/25 10:00 07/10/25 11:30 07/10/25 12:00 Temperature 37.3 C 38.1 C H Pulse Rate 80 100 Respiratory Rate 22 H 26 H Blood Pressure 115/88 Pulse Oximetry 98 96 Oxygen Delivery High Flow Therapy with Na Oxygen Flow Rate 40 Fraction of Inspired Oxygen 60 07/10/25 12:00 07/10/25 12:00 07/10/25 12:30 Temperature 39.2 C H 39.9 C H Pulse Rate 100 100 Respiratory Rate 26 H Blood Pressure 142/94 H Pulse Oximetry 96 Oxygen Delivery Oxygen Flow Rate Fraction of Inspired Oxygen 07/10/25 14:06 Temperature 40.5 C H Pulse Rate Respiratory Rate Blood Pressure Pulse Oximetry Oxygen Delivery Oxygen Flow Rate Fraction of Inspired Oxygen Intake/Output Intake/Output: Intake & Output 07/07/25 07/08/25 07/09/25 07/10/25 23:59 23:59 23:59 23:59 Intake Total 2036.9 2901.5 1394 990 Output Total 1400 1325 2200 800 Balance 636.9 1576.5 -806 190 Meds/Results Medications: Active Medications Generic Name Dose Route Start Last Admin Trade Name Freq PRN Reason Stop Dose Admin Acetaminophen 650 mg 07/06/25 22:57 07/10/25 11:30 Acetaminophen 325 Mg Tablet PO 650 mg Q4H PRN Administration Mild Pain (1-3) or Fever Al Hydrox/Mg Hydrox/Simethicone 30 ml 07/06/25 22:57 Mag Hydrox/Al Hydrox/Simeth 30 Ml Udc PO QID PRN Dyspepsia Bisacodyl 5 mg 07/06/25 22:57 Bisacodyl 5 Mg Tablet Ec PO DAILY PRN Constipation Dextrose 12.5 gm 07/06/25 23:18 Dextrose 50% 25 Gm/50 Ml Syringe IV PUSH PRN PRN Hypoglycemia Protocol Enoxaparin Sodium 40 mg 07/07/25 09:00 07/08/25 07:47 Enoxaparin 40 Mg/0.4 Ml Syringe SUB-Q Not Given On Hold: 07/08/25 10:03 DAILY XENIA Fluticasone Propionate 1 spray 07/07/25 09:00 07/10/25 09:07 Fluticasone Propionate 0.05% Na Spr 16 Gm Btl (*Bk) NASAL 1 spray Q12HR XENIA Administration Glucagon 1 mg 07/06/25 23:18 Glucagon For Inj 1 Mg Vial IM PRN PRN Hypoglycemia Protocol Glucose 15 gm 07/06/25 23:18 Glucose Oral Gel 15 Gm Of Glucse In 37.5 Gm Tube PO PRN PRN Hypoglycemia Protocol Dextrose 1,000 mls @ 100 mls/hr 07/06/25 23:18 Dextrose 5% 1,000 Ml IVPB PRN PRN Hypoglycemia Protocol Ibuprofen 400 mg/ Sodium 104 mls @ 208 mls/hr 07/07/25 17:27 07/10/25 14:06 Chloride IVPB 208 mls/hr Q8H PRN Administration Pain Rated 4-6 Cefepime HCl 2 gm/ Sodium 50 mls @ 100 mls/hr 07/10/25 17:00 Chloride IVPB Q8H XENIA Insulin Aspart 3 - 6 units 07/07/25 08:00 07/10/25 12:03 Insulin Aspart (*Bkc) 100 Units/Ml SUB-Q Not Given TIDWM [facility] Protocol Ondansetron HCl 4 mg 07/06/25 22:57 07/09/25 13:54 Ondansetron Inj 4 Mg/2 Ml Vial IV PUSH 4 mg Q6H PRN Administration Nausea And Vomiting Perflutren Lipid Microsphere 0 ml 07/08/25 07:18 Perflutren Lipid Microspheres 1.5 Ml Vial Diluted To 10 Ml Total Volume IV PUSH 07/11/25 07:18 ONCE PRN adequate visualization Protocol Sodium Chloride 10 ml 07/07/25 14:00 07/10/25 14:07 Central Line Flush IV PUSH 10 ml Q8HR XENIA Administration Sodium Chloride 20 ml 07/07/25 06:38 Central Line Flush IV PUSH PRN PRN after blood draws Radiology Results: ITS Impressions Upper Quadrant Ultrasound 07/09/25 14:30 IMPRESSION: 1. Normal right upper quadrant ultrasound with no intra or extrahepatic biliary ductal dilation. Chest X-Ray 07/10/25 08:10 IMPRESSION: 1. Unchanged elevation right hemidiaphragm opacity bilateral lower lung zones which could represent atelectasis or pneumonia. Labs Labs: Laboratory Results - last 24 hr 07/07/25 07/09/25 07/09/25 02:15 16:06 21:32 WBC RBC Hgb Hct MCV MCH MCHC RDW Plt Count MPV Immature Gran % (Auto) Neut % (Auto) Lymph % (Auto) Simpson % (Auto) Eos % (Auto) Baso % (Auto) Lymph # (Auto) Simpson # (Auto) Eos # (Auto) Baso # (Auto) Abs Immat Gran (auto) Absolute Neuts (auto) Absolute Nucleated RBC Band Neutrophils % Nucleated RBC % Platelet Estimate % Immature Plt Fraction Poikilocytosis Anisocytosis Ovalocytes Donovan Cells Schistocytes Sodium Potassium Chloride Carbon Dioxide Anion Gap BUN Creatinine Estim Creat Clear Calc Estimated GFR Glucose POC Capillary Glucose 154 H 177 H Lactic Acid Calcium Phosphorus Magnesium Total Bilirubin AST ALT Alkaline Phosphatase C-Reactive Protein Total Protein Albumin Vancomycin Trough Chlamy pneumoniae PCR Not detected Adenovirus (PCR) Not detected B. pertussis DNA (PCR) Not detected B.parapertussis DNA PCR Not detected Coronavirus OC43 (PCR) Not detected Coronavirus HKU1 (PCR) Not detected Coronavirus 229E (PCR) Not detected Coronavirus NL63 (PCR) Not detected Human Metapneumovir PCR Not detected Influenza A (H1) PCR Not detected Influ A (H1/09) PCR Not detected Influenza A (H3) PCR Not detected Influenza Type A (PCR) Not detected Influenza Type B (PCR) Not detected M. pneumoniae (PCR) Not detected Parainfluenza 1 (PCR) Not detected Parainfluenza 2 (PCR) Not detected Parainfluenza 3 (PCR) Not detected Parainfluenza 4 (PCR) Not detected RSV (PCR) Not detected Entero/Rhino (PCR) Not detected SARS-CoV-2 (PCR) Not detected 07/09/25 07/10/25 07/10/25 21:46 04:39 12:02 WBC 7.9 RBC 3.63 L Hgb 11.6 L Hct 34.5 L MCV 95.0 MCH 32.0 MCHC 33.6 RDW 14.2 Plt Count 23 L* MPV 10.8 H Immature Gran % (Auto) 4.8 H Neut % (Auto) 80.0 H Lymph % (Auto) 4.2 L Simpson % (Auto) 9.7 H Eos % (Auto) 0.4 Baso % (Auto) 0.9 Lymph # (Auto) 0.33 L Simpson # (Auto) 0.8 H Eos # (Auto) 0.0 Baso # (Auto) 0.1 Abs Immat Gran (auto) 0.38 H Absolute Neuts (auto) 6.4 Absolute Nucleated RBC 0.020 H Band Neutrophils % Not Reportable Nucleated RBC % 0.3 H Platelet Estimate Decreased % Immature Plt Fraction 13.1 H Poikilocytosis 1+ Anisocytosis 1+ Ovalocytes 1+ Donovan Cells 1+ Schistocytes None seen Sodium 140 Potassium 3.5 Chloride 112 H Carbon Dioxide 24 Anion Gap 4 BUN 40 H Creatinine 0.94 Estim Creat Clear Calc 73 Estimated GFR > 60 Glucose 120 H POC Capillary Glucose 142 H Lactic Acid 1.1 Calcium 7.2 L Phosphorus 1.7 L Magnesium 2.5 H Total Bilirubin 0.7 AST 80 H ALT 92 H Alkaline Phosphatase 136 H C-Reactive Protein 18.4 H Total Protein 5.3 L Albumin 2.6 L Vancomycin Trough 15.5 Chlamy pneumoniae PCR Adenovirus (PCR) B. pertussis DNA (PCR) B.parapertussis DNA PCR Coronavirus OC43 (PCR) Coronavirus HKU1 (PCR) Coronavirus 229E (PCR) Coronavirus NL63 (PCR) Human Metapneumovir PCR Influenza A (H1) PCR Influ A (H1/09) PCR Influenza A (H3) PCR Influenza Type A (PCR) Influenza Type B (PCR) M. pneumoniae (PCR) Parainfluenza 1 (PCR) Parainfluenza 2 (PCR) Parainfluenza 3 (PCR) Parainfluenza 4 (PCR) RSV (PCR) Entero/Rhino (PCR) SARS-CoV-2 (PCR)
--- NOTE | 2025-07-10 15:18 | PCPTNOTE ---
The patient treatment was not able to be completed today. RN reports to hold therapy due to patient running a high fever. Will plan to continue treatment per plan of care.
--- NOTE | 2025-07-10 15:30 | PM.IMPN ---
Progress Note: A&P Assessment and Plan (1) Septic shock: Code(s): A41.9 - Sepsis, unspecified organism; R65.21 - Severe sepsis with septic shock Status: Acute Assessment and Plan: Patient presented to the outside hospital in [facility] with complains of shortness of breath, abdominal bloating. -CTA chest abdomen and pelvis showed no pulmonary embolism, cholelithiasis with possible acute cholecystitis -ultrasound of right upper quadrant was negative for cholecystitis -UA suggestive of UTI and CT scan was negative for any kidney stones US liver negative for Acute cholecystitis Blood culture (2) Right lower lobe pneumonia: Qualifiers: Pneumonia type: due to unspecified organism Qualified Code(s): J18.9 - Pneumonia, unspecified organism Code(s): J18.9 - Pneumonia, unspecified organism Status: Acute Assessment and Plan: Continue antibiotics as above, supplemental oxygen via high-flow therapy -respiratory panel will has been ordered and negative Add incentive spirometry Lasix for pulmonary edema (3) Abnormal computed tomography of gallbladder: Code(s): R93.2 - Abnormal findings on diagnostic imaging of liver and biliary tract Status: Acute Assessment and Plan: CTA abdomen and pelvis at the outside hospital showed cholelithiasis with associated gallbladder wall distention with acute cholecystitis might be likely cause. -elevated LFTs and bilirubin -07/07: RUQ ultrasound done and was negative -hepatitis panel is negative -07/09: Bilirubin has resolved, LFTs trending down (4) Congestive heart failure: Code(s): I50.9 - Heart failure, unspecified Status: Acute Assessment and Plan: Chest x-ray shows diffuse bilateral infiltrates. Patient had elevated BNP on presentation Echocardiogram shows EF of 25-30% Lasix IV x1 today Plan Bacteremia Blood culture positive for GNB Contineu Cefepime per ID repeat CT AP today continue monitoring blood cultures DVT prophylaxis: Lovenox Stress ulcer prophylaxis: Not indicated Nutrition: Diet ordered Code Status: Full code PT/OT Subjective Date/time seen: 07/10/25 15:30 Interval history: Comfortable at bedside Review of Systems Review of Systems: 12 systems were reviewed with pertinent positives and negatives per HPI. Except as documented in the HPI, all other systems were reviewed and are negative. All systems reviewed & are unremarkable except as noted in HPI and below Exam Narrative: General: Pleasant gentleman in no acute distress HEENT:? Pupils equal reactive, sclerae is clear, moist oral mucosa Neck:? Supple Respiratory:? Coarse breath sounds bilaterally, decreased at bases, no wheezing, IV slipped crackles Cardiac:? S1-S2 normal, regular rate and rhythm Abdomen:? Soft, nontender, nondistended with normoactive bowel sounds Extremities:? Bilateral pitting edema mild Neuro:? Patient awake, alert, oriented x3, nonfocal, answers to questions appropriately and follows simple commands in all extremities Skin:? Warm and dry, no skin lesions noted Psych:? Normal mentation and affect Const: Other: Mildly ill-appearing, obese, appears stated age HENMT: Other: Mucous membranes are dry, upper and lower dentures in place Eyes: Other: Mild scleral icterus, no conjunctival pallor, pupils are equal and reactive Neck: Other: No JVD, no lymphadenopathy, right IJ present Resp: Other: Clear to auscultation bilaterally, no increased work of breathing Cardio: Other: Sinus tachycardia, 2+ bilateral radial pedal pulses, no JVD, no murmur GI: Other: Distended, nontender to palpation, hypoactive bowel sounds, no organomegaly : Other: Ac catheter in place with cloudy dark kirsty urine Skin: Other: Warm to touch, mild jaundice, no pallor Neuro: Other: Alert oriented x4, speech is clear, no facial asymmetry, no localizing neurologic deficits noted during the course of conversation Extrem: Other: No clubbing, cyanosis or edema, moves all extremities equally Psych: Other: Appropriate mood and affect, pleasant and cooperative, judgment insight intact Objective Data Vital Signs Vital Signs: Vital Signs - 24 hr 07/09/25 15:57 07/09/25 16:00 07/09/25 16:00 Temperature 102.2 F H 102.2 F H Pulse Rate 114 H 114 H Respiratory Rate 33 H Blood Pressure 106/76 106/76 Pulse Oximetry 97 Oxygen Delivery Oxygen Flow Rate Fraction of Inspired Oxygen 07/09/25 16:00 07/09/25 16:00 07/09/25 16:57 Temperature 101.1 F H Pulse Rate 111 H Respiratory Rate Blood Pressure Pulse Oximetry 97 Oxygen Delivery High Flow Therapy with Na Oxygen Flow Rate 40 Fraction of Inspired Oxygen 65 07/09/25 17:00 07/09/25 18:00 07/09/25 18:00 Temperature Pulse Rate 99 99 98 Respiratory Rate 22 H 30 H Blood Pressure 93/64 L 97/65 L Pulse Oximetry 96 94 Oxygen Delivery Oxygen Flow Rate Fraction of Inspired Oxygen 07/09/25 19:00 07/09/25 20:00 07/09/25 20:00 Temperature 100.8 F H Pulse Rate 97 94 Respiratory Rate 29 H Blood Pressure 106/72 Pulse Oximetry 93 96 Oxygen Delivery High Flow Therapy with Na Oxygen Flow Rate 40 Fraction of Inspired Oxygen 65 07/09/25 20:00 07/09/25 20:17 07/09/25 21:00 Temperature 100.8 F H Pulse Rate 94 93 90 Respiratory Rate 28 H 22 H 26 H Blood Pressure 98/60 L 95/66 L Pulse Oximetry 94 94 94 Oxygen Delivery High Flow Therapy with Na Oxygen Flow Rate 40 Fraction of Inspired Oxygen 70 07/09/25 22:00 07/09/25 23:00 07/10/25 00:00 Temperature 99.9 F H 99.9 F H Pulse Rate 93 86 Respiratory Rate 21 H 16 Blood Pressure 99/60 L 89/59 L Pulse Oximetry 97 100 96 Oxygen Delivery High Flow Therapy with Na Oxygen Flow Rate 40 Fraction of Inspired Oxygen 65 07/10/25 00:00 07/10/25 00:00 07/10/25 01:00 Temperature 99.9 F H Pulse Rate 77 77 83 Respiratory Rate 16 18 Blood Pressure 102/63 102/63 Pulse Oximetry 98 99 Oxygen Delivery Oxygen Flow Rate Fraction of Inspired Oxygen 07/10/25 01:51 07/10/25 03:00 07/10/25 03:58 Temperature Pulse Rate 78 72 Respiratory Rate 16 16 Blood Pressure 102/63 105/68 Pulse Oximetry 98 98 99 Oxygen Delivery High Flow Therapy with Na Oxygen Flow Rate 40 Fraction of Inspired Oxygen 65 07/10/25 04:00 07/10/25 04:00 07/10/25 05:00 Temperature 99.4 F Pulse Rate 77 75 74 Respiratory Rate 23 H 22 H Blood Pressure 117/76 100/66 Pulse Oximetry 98 96 Oxygen Delivery Oxygen Flow Rate Fraction of Inspired Oxygen 07/10/25 06:00 07/10/25 08:00 07/10/25 08:00 Temperature Pulse Rate 68 74 74 Respiratory Rate 20 23 H Blood Pressure 138/69 Pulse Oximetry 99 98 Oxygen Delivery High Flow Therapy with Na Oxygen Flow Rate 40 Fraction of Inspired Oxygen 60 07/10/25 08:00 07/10/25 08:46 07/10/25 10:00 Temperature 99.1 F Pulse Rate 74 68 80 Respiratory Rate 23 H 18 Blood Pressure 113/76 Pulse Oximetry 98 98 Oxygen Delivery High Flow Therapy with Na Oxygen Flow Rate 40 Fraction of Inspired Oxygen 72 07/10/25 10:00 07/10/25 11:30 07/10/25 12:00 Temperature 99.1 F 100.5 F H Pulse Rate 80 100 Respiratory Rate 22 H 26 H Blood Pressure 115/88 Pulse Oximetry 98 96 Oxygen Delivery High Flow Therapy with Na Oxygen Flow Rate 40 Fraction of Inspired Oxygen 60 07/10/25 12:00 07/10/25 12:00 07/10/25 12:30 Temperature 102.5 F H 103.8 F H Pulse Rate 100 100 Respiratory Rate 26 H Blood Pressure 142/94 H Pulse Oximetry 96 Oxygen Delivery Oxygen Flow Rate Fraction of Inspired Oxygen 07/10/25 14:00 07/10/25 14:00 07/10/25 14:06 Temperature 104.9 F H Pulse Rate 120 H 120 H Respiratory Rate 17 Blood Pressure 151/90 H Pulse Oximetry 93 Oxygen Delivery Oxygen Flow Rate Fraction of Inspired Oxygen Intake/Output Intake/Output: Intake & Output 07/07/25 07/08/25 07/09/25 07/10/25 23:59 23:59 23:59 23:59 Intake Total 2036.9 2901.5 1394 990 Output Total 1400 1325 2200 800 Balance 636.9 1576.5 -806 190 Meds/Results Medications: Active Medications Generic Name Dose Route Start Last Admin Trade Name Freq PRN Reason Stop Dose Admin Acetaminophen 650 mg 07/06/25 22:57 07/10/25 11:30 Acetaminophen 325 Mg Tablet PO 650 mg Q4H PRN Administration Mild Pain (1-3) or Fever Al Hydrox/Mg Hydrox/Simethicone 30 ml 07/06/25 22:57 Mag Hydrox/Al Hydrox/Simeth 30 Ml Udc PO QID PRN Dyspepsia Bisacodyl 5 mg 07/06/25 22:57 Bisacodyl 5 Mg Tablet Ec PO DAILY PRN Constipation Dextrose 12.5 gm 07/06/25 23:18 Dextrose 50% 25 Gm/50 Ml Syringe IV PUSH PRN PRN Hypoglycemia Protocol Enoxaparin Sodium 40 mg 07/07/25 09:00 07/08/25 07:47 Enoxaparin 40 Mg/0.4 Ml Syringe SUB-Q Not Given On Hold: 07/08/25 10:03 DAILY XENIA Fluticasone Propionate 1 spray 07/07/25 09:00 07/10/25 09:07 Fluticasone Propionate 0.05% Na Spr 16 Gm Btl (*Bkc) NASAL 1 spray Q12HR XENIA Administration Glucagon 1 mg 07/06/25 23:18 Glucagon For Inj 1 Mg Vial IM PRN PRN Hypoglycemia Protocol Glucose 15 gm 07/06/25 23:18 Glucose Oral Gel 15 Gm Of Glucse In 37.5 Gm Tube PO PRN PRN Hypoglycemia Protocol Dextrose 1,000 mls @ 100 mls/hr 07/06/25 23:18 Dextrose 5% 1,000 Ml IVPB PRN PRN Hypoglycemia Protocol Ibuprofen 400 mg/ Sodium 104 mls @ 208 mls/hr 07/07/25 17:27 07/10/25 14:06 Chloride IVPB 208 mls/hr Q8H PRN Administration Pain Rated 4-6 Cefepime HCl 2 gm/ Sodium 50 mls @ 100 mls/hr 07/10/25 17:00 Chloride IVPB Q8H XENIA Insulin Aspart 3 - 6 units 07/07/25 08:00 07/10/25 12:03 Insulin Aspart (*Bkc) 100 Units/Ml SUB-Q Not Given TIDWM [facility] Protocol Metoprolol Tartrate 12.5 mg 07/10/25 21:00 Metoprolol Tartrate 12.5 Mg Tablet PO Q12HR [facility] Ondansetron HCl 4 mg 07/06/25 22:57 07/09/25 13:54 Ondansetron Inj 4 Mg/2 Ml Vial IV PUSH 4 mg Q6H PRN Administration Nausea And Vomiting Perflutren Lipid Microsphere 0 ml 07/08/25 07:18 Perflutren Lipid Microspheres 1.5 Ml Vial Diluted To 10 Ml Total Volume IV PUSH 07/11/25 07:18 ONCE PRN adequate visualization Protocol Sodium Chloride 10 ml 07/07/25 14:00 07/10/25 14:07 Central Line Flush IV PUSH 10 ml Q8HR XENIA Administration Sodium Chloride 20 ml 07/07/25 06:38 Central Line Flush IV PUSH PRN PRN after blood draws Radiology Results: ITS Impressions Upper Quadrant Ultrasound 07/09/25 14:30 IMPRESSION: 1. Normal right upper quadrant ultrasound with no intra or extrahepatic biliary ductal dilation. Chest X-Ray 07/10/25 08:10 IMPRESSION: 1. Unchanged elevation right hemidiaphragm opacity bilateral lower lung zones which could represent atelectasis or pneumonia. Venous Doppler Study 07/10/25 15:15 Impression: Negative for DVT. Labs Labs: Laboratory Results - last 24 hr 07/07/25 07/09/25 07/09/25 02:15 16:06 21:32 WBC RBC Hgb Hct MCV MCH MCHC RDW Plt Count MPV Immature Gran % (Auto) Neut % (Auto) Lymph % (Auto) [place] % (Auto) Eos % (Auto) Baso % (Auto) Lymph # (Auto) [place] # (Auto) Eos # (Auto) Baso # (Auto) Abs Immat Gran (auto) Absolute Neuts (auto) Absolute Nucleated RBC Band Neutrophils % Nucleated RBC % Platelet Estimate % Immature Plt Fraction Poikilocytosis Anisocytosis Ovalocytes [place] Cells Schistocytes Sodium Potassium Chloride Carbon Dioxide Anion Gap BUN Creatinine Estim Creat Clear Calc Estimated GFR Glucose POC Capillary Glucose 154 H 177 H Lactic Acid Calcium Phosphorus Magnesium Total Bilirubin AST ALT Alkaline Phosphatase C-Reactive Protein Total Protein Albumin Vancomycin Trough Chlamy pneumoniae PCR Not detected Adenovirus (PCR) Not detected B. pertussis DNA (PCR) Not detected B.parapertussis DNA PCR Not detected Coronavirus OC43 (PCR) Not detected Coronavirus HKU1 (PCR) Not detected Coronavirus 229E (PCR) Not detected Coronavirus NL63 (PCR) Not detected Human Metapneumovir PCR Not detected Influenza A (H1) PCR Not detected Influ A (H1/09) PCR Not detected Influenza A (H3) PCR Not detected Influenza Type A (PCR) Not detected Influenza Type B (PCR) Not detected M. pneumoniae (PCR) Not detected Parainfluenza 1 (PCR) Not detected Parainfluenza 2 (PCR) Not detected Parainfluenza 3 (PCR) Not detected Parainfluenza 4 (PCR) Not detected RSV (PCR) Not detected Entero/Rhino (PCR) Not detected SARS-CoV-2 (PCR) Not detected 07/09/25 07/10/25 07/10/25 21:46 04:39 12:02 WBC 7.9 RBC 3.63 L Hgb 11.6 L Hct 34.5 L MCV 95.0 MCH 32.0 MCHC 33.6 RDW 14.2 Plt Count 23 L* MPV 10.8 H Immature Gran % (Auto) 4.8 H Neut % (Auto) 80.0 H Lymph % (Auto) 4.2 L [place] % (Auto) 9.7 H Eos % (Auto) 0.4 Baso % (Auto) 0.9 Lymph # (Auto) 0.33 L [place] # (Auto) 0.8 H Eos # (Auto) 0.0 Baso # (Auto) 0.1 Abs Immat Gran (auto) 0.38 H Absolute Neuts (auto) 6.4 Absolute Nucleated RBC 0.020 H Band Neutrophils % Not Reportable Nucleated RBC % 0.3 H Platelet Estimate Decreased % Immature Plt Fraction 13.1 H Poikilocytosis 1+ Anisocytosis 1+ Ovalocytes 1+ [place] Cells 1+ Schistocytes None seen Sodium 140 Potassium 3.5 Chloride 112 H Carbon Dioxide 24 Anion Gap 4 BUN 40 H Creatinine 0.94 Estim Creat Clear Calc 73 Estimated GFR > 60 Glucose 120 H POC Capillary Glucose 142 H Lactic Acid 1.1 Calcium 7.2 L Phosphorus 1.7 L Magnesium 2.5 H Total Bilirubin 0.7 AST 80 H ALT 92 H Alkaline Phosphatase 136 H C-Reactive Protein 18.4 H Total Protein 5.3 L Albumin 2.6 L Vancomycin Trough 15.5 Chlamy pneumoniae PCR Adenovirus (PCR) B. pertussis DNA (PCR) B.parapertussis DNA PCR Coronavirus OC43 (PCR) Coronavirus HKU1 (PCR) Coronavirus 229E (PCR) Coronavirus NL63 (PCR) Human Metapneumovir PCR Influenza A (H1) PCR Influ A (H1/09) PCR Influenza A (H3) PCR Influenza Type A (PCR) Influenza Type B (PCR) M. pneumoniae (PCR) Parainfluenza 1 (PCR) Parainfluenza 2 (PCR) Parainfluenza 3 (PCR) Parainfluenza 4 (PCR) RSV (PCR) Entero/Rhino (PCR) SARS-CoV-2 (PCR) Quality VTE Prophylaxis VTE prophylaxis: pharmacologic ordered
[2025-07-10 16:16] LABS: Troponin I 0.092 ng/mL (0.000-0.034)
[2025-07-10 17:29] LABS: NT Pro B Type Natriuretic Pept 15900 pg/mL (19.9-100)
[2025-07-11] VITALS (34 sets, daily range): BP systolic 91–127; BP diastolic 66–93; PULSE 62–140; RESP 10–20; TEMP 36.8–39.2; O2SAT 92–100; BMI 32.5
[2025-07-11] MEDS: metroNIDAZOLE 500 MG/ISO 100ML 500 MG/100 ML BAG 100 MG IVPB ×2 (01:20→08:24)
[2025-07-11] MEDS: CEFEPIME 2 GM in SODIUM CHLORIDE 0.9% IV 50 ML 100 ML IVPB ×2 (01:21→08:19)
[2025-07-11 05:03] LABS: Hematocrit 35.3 % (42.0-52.0); Hemoglobin 11.9 g/dL (14.0-18.0); Immature Granulocyte Percent A 1.9 % (0-0.5); Immature Platelet Fraction Pct 15.0 % (0.9-11.2); Lymphocytes Absolute Auto 0.48 K/mm3 (0.9-3.2); Mean Corpuscular HGB Conc 33.7 g/dl (32-36); Mean Corpuscular Hemoglobin 31.9 pg (26-34); Mean Corpuscular Volume 94.6 fl (80-100); Nucleated Red Blood Cells Absolute Auto 0.000 K/mm3 (0.0-0.012); Nucleated Red Blood Cells Perc 0.0 % (0.0-0.2); Red Blood Count 3.73 M/mm3 (4.6-6.20); White Blood Count 8.4 K/mm3 (4.5-10.0)
[2025-07-11 05:12] LABS: INR 1.1; Prothrombin Time 14.3 Seconds (11.1-14.7)
[2025-07-11 05:13] LABS: Alanine Aminotransferase 83 U/L (6-50); Albumin Level 2.6 g/dL (3.5-5.1); Alkaline Phosphatase 122 U/L (38-126); Anion Gap 4 mmol/L (4-12); Aspartate Amino Transferase 71 U/L (17-59); Bilirubin,Total 0.6 mg/dL (0.2-1.3); Blood Urea Nitrogen 39 mg/dL (9-20); Calcium 7.6 mg/dL (8.4-10.2); Carbon Dioxide 27 mmol/L (22-30); Chloride 109 mmol/L (98-107); Estimated CRCL calculation 77 ml/min; Estimated Glomerular Filt Rate > 60; Glucose 109 mg/dL (65-110); Magnesium 2.2 mg/dL (1.6-2.3); Potassium 3.2 mmol/L (3.4-5.0); Sodium 140 mmol/L (137-145); Total Protein 5.3 g/dL (6.3-8.2)
[2025-07-11 05:14] LABS: Partial Thromboplastin Time 28.4 Seconds (22.3-36.8)
[2025-07-11 05:45] LABS: Platelet Count Result 21 k/mm3 (150-375)
[2025-07-11 05:46] LABS: Anisocytosis 1+; Burr Cells 2+; Schistocytes None Seen
[2025-07-11] MEDS: CENTRAL LINE FLUSH 10 ML IV PUSH ×3 (06:12→20:04)
[2025-07-11] MEDS: METOPROLOL TARTRATE 12.5 MG TABLET PO ×2 (08:12→20:03)
[2025-07-11] MEDS: POTASSIUM BICARBONATE 25 MEQ TABEF 50 MEQ PO (08:12)
[2025-07-11] MEDS: POTASSIUM PHOS,M-BASIC-D-BASIC 20 MMOL in SODIUM CHLORIDE 0.9% IV 250 ML 64.17 MMOL IVPB (08:13)
[2025-07-11] MEDS: FLUTICASONE PROPIONATE 0.05% NA SPR 16 GM BTL (*BKC) 1 SPRAY NASAL ×2 (08:16→20:04)
--- NOTE | 2025-07-11 08:16 | P.PNCA_ITS ---
Progress Note: A&P Assessment and Plan (1) Acute systolic heart failure: Code(s): I50.21 - Acute systolic (congestive) heart failure Status: Acute (2) Bradycardia: Code(s): R00.1 - Bradycardia, unspecified Status: Acute (3) HLD (hyperlipidemia): Qualifiers: Hyperlipidemia type: mixed hyperlipidemia Qualified Code(s): E78.2 - Mixed hyperlipidemia Code(s): E78.5 - Hyperlipidemia, unspecified Status: Acute (4) HTN (hypertension): Qualifiers: Hypertension type: primary hypertension Qualified Code(s): I10 - Essential (primary) hypertension Code(s): I10 - Essential (primary) hypertension Status: Acute Plan Diagnosis: New onset acute systolic heart failure with LVEF of 25-30% (prior echo from January/2025 showed normal LVEF of 60% and no significant valvular pathology) Family history of CAD on father side Hypertension Hyperlipidemia Paroxysmal AFib status post ablation in 2023 Septic shock- gram-negative bacteremia; pneumonia; acute cholecystitis and possible abscess on CT- Thrombocytopenia-platelet count 21k Plan: -Guideline directed medical therapy as blood pressure tolerates. Added metoprolol 12.5 mg p.o. b.i.d. will wait before adding other guideline directed therapies as patient is currently septic and may not want to make him hypotensive -At this time he is acutely sick with Gram-negative sepsis/septic shock and also has severe thrombocytopenia. He remains febrile. Recommend ischemia evaluation after he recovers from his acute illness -Check and replace electrolytes to keep potassium greater than 4 and magnesium greater than 2 -No antiplatelet agents given thrombocytopenia. Platelet transfusion schedule for today -Management of other medical problems per primary team Subjective Date/time seen: 07/11/25 08:16 Interval history: Reason for encounter: New cardiomyopathy with LVEF of 25% Relevant history: Off all pressors. He remains on IV antibiotics. CT chest abdomen pelvis showed acute cholecystitis and an abscess. No abdominal pain. No chest pain, dizziness, lightheadedness, heart shortness of breath. He is afebrile this morning. Review of Systems Cardiovascular: Comments: As per HPI Respiratory: Comments: As per HPI Exam Narrative: General: Alert oriented x3, no acute distress Neck: Supple, JVD + Chest: Bilaterally clear to auscultation, no rales or rhonchi Cardiac: S1, S2 +, regular rate, regular rhythm, no murmurs or rubs Extremities: Bilateral lower extremity edema 1+, no skin rash Neurologic: Alert and oriented x3, no focal neurological deficits Objective Data Vital Signs Vital Signs: Vital Signs - 24 hr 07/10/25 08:46 07/10/25 10:00 07/10/25 10:00 Temperature 37.3 C Pulse Rate 68 80 80 Respiratory Rate 18 22 H Blood Pressure 115/88 Pulse Oximetry 98 98 Oxygen Delivery High Flow Therapy with Na Oxygen Flow Rate 40 Fraction of Inspired Oxygen 72 07/10/25 11:30 07/10/25 12:00 07/10/25 12:00 Temperature 38.1 C H Pulse Rate 100 100 Respiratory Rate 26 H Blood Pressure Pulse Oximetry 96 Oxygen Delivery High Flow Therapy with Na Oxygen Flow Rate 40 Fraction of Inspired Oxygen 60 07/10/25 12:00 07/10/25 12:30 07/10/25 13:44 Temperature 39.2 C H 39.9 C H Pulse Rate 100 127 H Respiratory Rate 26 H 24 H Blood Pressure 142/94 H Pulse Oximetry 96 94 Oxygen Delivery High Flow Therapy with Na Oxygen Flow Rate 40 Fraction of Inspired Oxygen 63 07/10/25 14:00 07/10/25 14:00 07/10/25 14:06 Temperature 40.5 C H Pulse Rate 120 H 120 H Respiratory Rate 17 Blood Pressure 151/90 H Pulse Oximetry 93 Oxygen Delivery Oxygen Flow Rate Fraction of Inspired Oxygen 07/10/25 15:06 07/10/25 16:00 07/10/25 16:00 Temperature 39.9 C H Pulse Rate 90 90 Respiratory Rate 17 Blood Pressure Pulse Oximetry 96 Oxygen Delivery High Flow Therapy with Na Oxygen Flow Rate 40 Fraction of Inspired Oxygen 60 07/10/25 16:00 07/10/25 16:57 07/10/25 18:00 Temperature 38.7 C H Pulse Rate 90 88 83 Respiratory Rate 13 20 Blood Pressure 84/61 L Pulse Oximetry 98 96 Oxygen Delivery High Flow Therapy with Na Oxygen Flow Rate 40 Fraction of Inspired Oxygen 63 07/10/25 18:00 07/10/25 20:00 07/10/25 20:00 Temperature 37.8 C H Pulse Rate 77 74 Respiratory Rate 19 Blood Pressure 92/69 L Pulse Oximetry 98 96 Oxygen Delivery High Flow Therapy with Na Oxygen Flow Rate 40 Fraction of Inspired Oxygen 60 07/10/25 20:00 07/10/25 22:00 07/10/25 22:00 Temperature 37.6 C H 37.3 C Pulse Rate 78 69 69 Respiratory Rate 19 17 Blood Pressure 89/74 L 89/67 L Pulse Oximetry 95 99 Oxygen Delivery Oxygen Flow Rate Fraction of Inspired Oxygen 07/11/25 00:00 07/11/25 00:00 07/11/25 00:00 Temperature 36.9 C Pulse Rate 67 66 Respiratory Rate 18 Blood Pressure 91/67 L Pulse Oximetry 100 100 Oxygen Delivery High Flow Therapy with Na Oxygen Flow Rate 40 Fraction of Inspired Oxygen 60 07/11/25 02:00 07/11/25 02:00 07/11/25 04:00 Temperature 36.8 C Pulse Rate 62 62 Respiratory Rate 17 Blood Pressure 110/72 Pulse Oximetry 99 97 Oxygen Delivery High Flow Therapy with Na Oxygen Flow Rate 40 Fraction of Inspired Oxygen 60 07/11/25 04:00 07/11/25 04:00 07/11/25 05:48 Temperature 37.1 C Pulse Rate 70 70 74 Respiratory Rate 12 10 L Blood Pressure 105/76 Pulse Oximetry 97 99 Oxygen Delivery High Flow Therapy with Na Oxygen Flow Rate 40 Fraction of Inspired Oxygen 63 07/11/25 06:00 07/11/25 06:00 07/11/25 07:45 Temperature Pulse Rate 70 70 Respiratory Rate 12 Blood Pressure 110/79 Pulse Oximetry 96 96 Oxygen Delivery High Flow Therapy with Na Oxygen Flow Rate 40 Fraction of Inspired Oxygen 63 07/11/25 08:12 Temperature Pulse Rate Respiratory Rate Blood Pressure Pulse Oximetry 97 Oxygen Delivery High Flow Therapy with Na Oxygen Flow Rate 40 Fraction of Inspired Oxygen 46 Intake/Output Intake/Output: Intake & Output 07/08/25 07/09/25 07/10/25 07/11/25 23:59 23:59 23:59 23:59 Intake Total 2901.5 1394 1644 300 Output Total 1325 2200 3400 700 Balance 7906.5 -159 -9716 -400 Meds/Results Medications: Active Medications Generic Name Dose Route Start Last Admin Trade Name Freq PRN Reason Stop Dose Admin Acetaminophen 650 mg 07/06/25 22:57 07/10/25 11:30 Acetaminophen 325 Mg Tablet PO 650 mg Q4H PRN Administration Mild Pain (1-3) or Fever Al Hydrox/Mg Hydrox/Simethicone 30 ml 07/06/25 22:57 Mag Hydrox/Al Hydrox/Simeth 30 Ml Udc PO QID PRN Dyspepsia Bisacodyl 5 mg 07/06/25 22:57 Bisacodyl 5 Mg Tablet Ec PO DAILY PRN Constipation Dextrose 12.5 gm 07/06/25 23:18 Dextrose 50% 25 Gm/50 Ml Syringe IV PUSH PRN PRN Hypoglycemia Protocol Enoxaparin Sodium 40 mg 07/07/25 09:00 07/08/25 07:47 Enoxaparin 40 Mg/0.4 Ml Syringe SUB-Q Not Given On Hold: 07/08/25 10:03 DAILY XEINA Fluticasone Propionate 1 spray 07/07/25 09:00 07/10/25 20:14 Fluticasone Propionate 0.05% Na Spr 16 Gm Btl (*Bk) NASAL 1 spray Q12HR XENIA Administration Furosemide 40 mg 07/11/25 12:00 Furosemide Inj 40 Mg/4 Ml Vial IV PUSH 07/11/25 12:01 ONCE ONE Glucagon 1 mg 07/06/25 23:18 Glucagon For Inj 1 Mg Vial IM PRN PRN Hypoglycemia Protocol Glucose 15 gm 07/06/25 23:18 Glucose Oral Gel 15 Gm Of Glucse In 37.5 Gm Tube PO PRN PRN Hypoglycemia Protocol Dextrose 1,000 mls @ 100 mls/hr 07/06/25 23:18 Dextrose 5% 1,000 Ml IVPB PRN PRN Hypoglycemia Protocol Ibuprofen 400 mg/ Sodium 104 mls @ 208 mls/hr 07/07/25 17:27 07/10/25 14:36 Chloride IVPB Infused Q8H PRN Infusion Pain Rated 4-6 Cefepime HCl 2 gm/ Sodium 50 mls @ 100 mls/hr 07/10/25 17:00 07/11/25 01:51 Chloride IVPB Infused Q8H XENIA Infusion Metronidazole 500 mg in 100 mls @ 100 mls/hr 07/10/25 17:00 07/11/25 02:20 Flagyl 500 Mg/Iso Soln 100 Ml IVPB Infused Q8H XENIA Infusion Potassium Phosphate 20 mmol/ 256.6667 mls @ 64.167 mls/hr 07/11/25 08:00 Sodium Chloride IVPB 07/11/25 11:59 ONCE ONE Sodium Chloride 250 mls @ 30 mls/hr 07/11/25 07:18 Normal Saline Iv IV CONT 07/11/25 15:37 .Q8H20M STA Insulin Aspart 3 - 6 units 07/07/25 08:00 07/11/25 07:35 Insulin Aspart (*Bkc) 100 Units/Ml SUB-Q Not Given TIDWM [facility] Protocol Metoprolol Tartrate 12.5 mg 07/10/25 21:00 07/10/25 20:16 Metoprolol Tartrate 12.5 Mg Tablet PO Not Given Q12HR [facility] Ondansetron HCl 4 mg 07/06/25 22:57 07/09/25 13:54 Ondansetron Inj 4 Mg/2 Ml Vial IV PUSH 4 mg Q6H PRN Administration Nausea And Vomiting Sodium Chloride 10 ml 07/07/25 14:00 07/11/25 06:12 Central Line Flush IV PUSH 10 ml Q8HR XENIA Administration Sodium Chloride 20 ml 07/07/25 06:38 Central Line Flush IV PUSH PRN PRN after blood draws Radiology Results: ITS Impressions Upper Quadrant Ultrasound 07/09/25 14:30 IMPRESSION: 1. Normal right upper quadrant ultrasound with no intra or extrahepatic biliary ductal dilation. Chest X-Ray 07/10/25 08:10 IMPRESSION: 1. Unchanged elevation right hemidiaphragm opacity bilateral lower lung zones which could represent atelectasis or pneumonia. Venous Doppler Study 07/10/25 15:15 Impression: Negative for DVT. Chest/Abdomen/Pelvis CT 07/10/25 15:44 IMPRESSION: 1. New groundglass opacities in right lung upper lobe, consistent with pneumonia. 2. Small pleural effusions. 3. Distended gallbladder with gallstone suspicious for acute cholecystitis. 4. Worsened liver mass near the gallbladder, consistent with abscess. Labs Labs: Laboratory Results - last 24 hr 07/10/25 07/10/25 07/10/25 12:02 15:21 23:06 WBC RBC Hgb Hct MCV MCH MCHC RDW Plt Count MPV Immature Gran % (Auto) Neut % (Auto) Lymph % (Auto) Knox % (Auto) Eos % (Auto) Baso % (Auto) Lymph # (Auto) Knox # (Auto) Eos # (Auto) Baso # (Auto) Abs Immat Gran (auto) Absolute Neuts (auto) Absolute Nucleated RBC Band Neutrophils % Nucleated RBC % Platelet Estimate % Immature Plt Fraction Anisocytosis Donovan Cells Schistocytes PT INR APTT Sodium Potassium Chloride Carbon Dioxide Anion Gap BUN Creatinine Estim Creat Clear Calc Estimated GFR Glucose POC Capillary Glucose 142 H 131 H Calcium Phosphorus Magnesium Total Bilirubin AST ALT Alkaline Phosphatase Troponin I 0.092 H* NT-Pro-B Natriuret Pep 71834 H Total Protein Albumin 07/11/25 07/11/25 04:49 07:33 WBC 8.4 RBC 3.73 L Hgb 11.9 L Hct 35.3 L MCV 94.6 MCH 31.9 MCHC 33.7 RDW 14.5 Plt Count 21 L* MPV 12.9 H Immature Gran % (Auto) 1.9 H Neut % (Auto) 79.8 H Lymph % (Auto) 5.7 L Knox % (Auto) 11.2 H Eos % (Auto) 1.0 Baso % (Auto) 0.4 Lymph # (Auto) 0.48 L Knox # (Auto) 0.9 H Eos # (Auto) 0.1 Baso # (Auto) 0.0 Abs Immat Gran (auto) 0.16 H Absolute Neuts (auto) 6.7 Absolute Nucleated RBC 0.000 Band Neutrophils % Not Reportable Nucleated RBC % 0.0 Platelet Estimate Decreased % Immature Plt Fraction 15.0 H Anisocytosis 1+ Donovan Cells 2+ Schistocytes None seen PT 14.3 INR 1.1 APTT 28.4 Sodium 140 Potassium 3.2 L Chloride 109 H Carbon Dioxide 27 Anion Gap 4 BUN 39 H Creatinine 0.89 Estim Creat Clear Calc 77 Estimated GFR > 60 Glucose 109 POC Capillary Glucose 118 H Calcium 7.6 L Phosphorus 2.2 L Magnesium 2.2 Total Bilirubin 0.6 AST 71 H ALT 83 H Alkaline Phosphatase 122 Troponin I NT-Pro-B Natriuret Pep Total Protein 5.3 L Albumin 2.6 L
--- NOTE | 2025-07-11 08:41 | P.PNINT_ITS ---
Progress Note: A&P Assessment and Plan (1) Septic shock: Code(s): A41.9 - Sepsis, unspecified organism; R65.21 - Severe sepsis with septic shock Status: Acute Assessment and Plan: Patient presented to the outside hospital in [facility] with complains of shortness of breath, abdominal bloating. -CTA chest abdomen and pelvis showed no pulmonary embolism, cholelithiasis with possible acute cholecystitis -ultrasound of right upper quadrant was negative for cholecystitis -UA suggestive of UTI and CT scan was negative for any kidney stones -blood cultures at outside hospital grew E coli Blood cultures done on 07/07 at [facility] also growing Gram-negative bacilli. Identification is pending Due to persistent fevers and repeat cultures being positive after decisions Infectious Disease I repeated CT scan of chest abdomen pelvis 07/10 CT scan showed IMPRESSION: 1. New groundglass opacities in right lung upper lobe, consistent with pneumonia. 2. Small pleural effusions. 3. Distended gallbladder with gallstone suspicious for acute cholecystitis. 4. Worsened liver mass near the gallbladder, consistent with abscess. Lower extremity Dopplers are negative for DVT General surgery consulted and after on salt patient with General surgery we have requested IR for a ultrasound-guided abscess drainage and cholecystostomy tube Patient is NPO and I will transfuse platelets Continue cefepime and Flagyl Infectious disease following (2) Right lower lobe pneumonia: Qualifiers: Pneumonia type: due to unspecified organism Qualified Code(s): J18.9 - Pneumonia, unspecified organism Code(s): J18.9 - Pneumonia, unspecified organism Status: Acute Assessment and Plan: Continue antibiotics as above, supplemental oxygen via high-flow therapy -respiratory panel will has been ordered and negative Add incentive spirometry Lasix for pulmonary edema (3) Abnormal computed tomography of gallbladder: Code(s): R93.2 - Abnormal findings on diagnostic imaging of liver and biliary tract Status: Acute Assessment and Plan: See above (4) Congestive heart failure: Code(s): I50.9 - Heart failure, unspecified Status: Acute Assessment and Plan: Chest x-ray shows diffuse bilateral infiltrates. Patient had elevated BNP on presentation Echocardiogram shows EF of 25-30% Lasix IV x1 again today (5) Thrombocytopenia: Code(s): D69.6 - Thrombocytopenia, unspecified Status: Acute Assessment and Plan: Multifactorial thrombocytopenia likely secondary to sepsis. I will transfuse 2 units of platelets in anticipation of invasive procedure. Lovenox some and patient is on SCDs (6) Electrolyte abnormality: Code(s): E87.8 - Other disorders of electrolyte and fluid balance, not elsewhere classified Status: Acute Assessment and Plan: Potassium and phosphorous replacement ordered. Plan DVT prophylaxis: Lovenox is on hold, SCDs Stress ulcer prophylaxis: Not indicated Nutrition: NPO at this time Code Status: Full code IS and Up in chair Case also discussed with General surgery Discussed with patient and his spouse at bedside and updated them with patient's condition and plan of care. I answered all questions Critical Care Time Spent: 30 minutes Due to a high probability of clinically significant, life threatening deteriora tion, the patient required my highest level of preparedness to intervene emergently and I personally spent this critical care time directly and personally managing the patient. This critical care time included obtaining a history; examining the patient; pulse oximetry; ordering and review of studies; arranging urgent treatment with development of a management plan; evaluation of patient's response to treatment; frequent reassessment; and discussions with other providers. It was exclusive of separately billable procedures and treating other patients and teaching time. Please see Assessment and Plan section and the rest of the note for further information on patient assessment and treatment This dictation may have been done utilizing a voice recognition system. Attempts have been made to correct errors. However, there may be uncorrected grammatical, spelling, and recognitions errors present. Subjective Date/time seen: 07/11/25 Overnight events reviewed. Low-grade fever overnight but afebrile this morning Continues to be on Airvo Not on any continuous infusion. Tolerating liquid diet. He was made NPO after midnight He denies any new complaint this morning and states he feels better. He did had fever but denies any abdominal pain nausea vomiting chest pain shortness a breath. He still has some dry cough. All other systems were reviewed and were negative Review of Systems Review of Systems: All systems reviewed & are unremarkable except as noted in HPI and below Exam Narrative: General: Pleasant gentleman in no acute distress HEENT:? Pupils equal reactive, sclerae is clear, moist oral mucosa Neck:? Supple Respiratory:? Coarse breath sounds bilaterally, decreased at bases, no wheezing, IV slipped crackles Cardiac:? S1-S2 normal, regular rate and rhythm Abdomen:? Soft, nontender, nondistended with normoactive bowel sounds Extremities:? Bilateral pitting edema mild Neuro:? Patient awake, alert, oriented x3, nonfocal, answers to questions appropriately and follows simple commands in all extremities Skin:? Warm and dry, no skin lesions noted Psych:? Normal mentation and affect Objective Data Vital Signs Vital Signs: Vital Signs - 24 hr 07/10/25 08:46 07/10/25 10:00 07/10/25 10:00 Temperature 37.3 C Pulse Rate 68 80 80 Respiratory Rate 18 22 H Blood Pressure 115/88 Pulse Oximetry 98 98 Oxygen Delivery High Flow Therapy with Na Oxygen Flow Rate 40 Fraction of Inspired Oxygen 72 07/10/25 11:30 07/10/25 12:00 07/10/25 12:00 Temperature 38.1 C H Pulse Rate 100 100 Respiratory Rate 26 H Blood Pressure Pulse Oximetry 96 Oxygen Delivery High Flow Therapy with Na Oxygen Flow Rate 40 Fraction of Inspired Oxygen 60 07/10/25 12:00 07/10/25 12:30 07/10/25 13:44 Temperature 39.2 C H 39.9 C H Pulse Rate 100 127 H Respiratory Rate 26 H 24 H Blood Pressure 142/94 H Pulse Oximetry 96 94 Oxygen Delivery High Flow Therapy with Na Oxygen Flow Rate 40 Fraction of Inspired Oxygen 63 07/10/25 14:00 07/10/25 14:00 07/10/25 14:06 Temperature 40.5 C H Pulse Rate 120 H 120 H Respiratory Rate 17 Blood Pressure 151/90 H Pulse Oximetry 93 Oxygen Delivery Oxygen Flow Rate Fraction of Inspired Oxygen 07/10/25 15:06 07/10/25 16:00 07/10/25 16:00 Temperature 39.9 C H Pulse Rate 90 90 Respiratory Rate 17 Blood Pressure Pulse Oximetry 96 Oxygen Delivery High Flow Therapy with Na Oxygen Flow Rate 40 Fraction of Inspired Oxygen 60 07/10/25 16:00 07/10/25 16:57 07/10/25 18:00 Temperature 38.7 C H Pulse Rate 90 88 83 Respiratory Rate 13 20 Blood Pressure 84/61 L Pulse Oximetry 98 96 Oxygen Delivery High Flow Therapy with Na Oxygen Flow Rate 40 Fraction of Inspired Oxygen 63 07/10/25 18:00 07/10/25 20:00 07/10/25 20:00 Temperature 37.8 C H Pulse Rate 77 74 Respiratory Rate 19 Blood Pressure 92/69 L Pulse Oximetry 98 96 Oxygen Delivery High Flow Therapy with Na Oxygen Flow Rate 40 Fraction of Inspired Oxygen 60 07/10/25 20:00 07/10/25 22:00 07/10/25 22:00 Temperature 37.6 C H 37.3 C Pulse Rate 78 69 69 Respiratory Rate 19 17 Blood Pressure 89/74 L 89/67 L Pulse Oximetry 95 99 Oxygen Delivery Oxygen Flow Rate Fraction of Inspired Oxygen 07/11/25 00:00 07/11/25 00:00 07/11/25 00:00 Temperature 36.9 C Pulse Rate 67 66 Respiratory Rate 18 Blood Pressure 91/67 L Pulse Oximetry 100 100 Oxygen Delivery High Flow Therapy with Na Oxygen Flow Rate 40 Fraction of Inspired Oxygen 60 07/11/25 02:00 07/11/25 02:00 07/11/25 04:00 Temperature 36.8 C Pulse Rate 62 62 Respiratory Rate 17 Blood Pressure 110/72 Pulse Oximetry 99 97 Oxygen Delivery High Flow Therapy with Na Oxygen Flow Rate 40 Fraction of Inspired Oxygen 60 07/11/25 04:00 07/11/25 04:00 07/11/25 05:48 Temperature 37.1 C Pulse Rate 70 70 74 Respiratory Rate 12 10 L Blood Pressure 105/76 Pulse Oximetry 97 99 Oxygen Delivery High Flow Therapy with Na Oxygen Flow Rate 40 Fraction of Inspired Oxygen 63 07/11/25 06:00 07/11/25 06:00 07/11/25 07:45 Temperature Pulse Rate 70 70 Respiratory Rate 12 Blood Pressure 110/79 Pulse Oximetry 96 96 Oxygen Delivery High Flow Therapy with Na Oxygen Flow Rate 40 Fraction of Inspired Oxygen 63 07/11/25 08:12 07/11/25 08:12 07/11/25 08:35 Temperature Pulse Rate 73 Respiratory Rate Blood Pressure Pulse Oximetry 97 92 Oxygen Delivery High Flow Therapy with Na High Flow Therapy with Na Oxygen Flow Rate 40 30 Fraction of Inspired Oxygen 46 35 Intake/Output Intake/Output: Intake & Output 07/08/25 07/09/25 07/10/25 07/11/25 23:59 23:59 23:59 23:59 Intake Total 2901.5 1394 1644 300 Output Total 1325 2200 3400 700 Balance 1576.5 -806 -1756 -400 Meds/Results Medications: Active Medications Generic Name Dose Route Start Last Admin Trade Name Freq PRN Reason Stop Dose Admin Acetaminophen 650 mg 07/06/25 22:57 07/10/25 11:30 Acetaminophen 325 Mg Tablet PO 650 mg Q4H PRN Administration Mild Pain (1-3) or Fever Al Hydrox/Mg Hydrox/Simethicone 30 ml 07/06/25 22:57 Mag Hydrox/Al Hydrox/Simeth 30 Ml Udc PO QID PRN Dyspepsia Bisacodyl 5 mg 07/06/25 22:57 Bisacodyl 5 Mg Tablet Ec PO DAILY PRN Constipation Dextrose 12.5 gm 07/06/25 23:18 Dextrose 50% 25 Gm/50 Ml Syringe IV PUSH PRN PRN Hypoglycemia Protocol Enoxaparin Sodium 40 mg 07/07/25 09:00 07/08/25 07:47 Enoxaparin 40 Mg/0.4 Ml Syringe SUB-Q Not Given On Hold: 07/08/25 10:03 DAILY XENIA Fluticasone Propionate 1 spray 07/07/25 09:00 07/11/25 08:16 Fluticasone Propionate 0.05% Na Spr 16 Gm Btl (*[facility]) NASAL 1 spray Q12HR XENIA Administration Furosemide 40 mg 07/11/25 12:00 Furosemide Inj 40 Mg/4 Ml Vial IV PUSH 07/11/25 12:01 ONCE ONE Glucagon 1 mg 07/06/25 23:18 Glucagon For Inj 1 Mg Vial IM PRN PRN Hypoglycemia Protocol Glucose 15 gm 07/06/25 23:18 Glucose Oral Gel 15 Gm Of Glucse In 37.5 Gm Tube PO PRN PRN Hypoglycemia Protocol Dextrose 1,000 mls @ 100 mls/hr 07/06/25 23:18 Dextrose 5% 1,000 Ml IVPB PRN PRN Hypoglycemia Protocol Ibuprofen 400 mg/ Sodium 104 mls @ 208 mls/hr 07/07/25 17:27 07/10/25 14:36 Chloride IVPB Infused Q8H PRN Infusion Pain Rated 4-6 Cefepime HCl 2 gm/ Sodium 50 mls @ 100 mls/hr 07/10/25 17:00 07/11/25 08:19 Chloride IVPB 100 mls/hr Q8H XENIA Administration Metronidazole 500 mg in 100 mls @ 100 mls/hr 07/10/25 17:00 07/11/25 08:24 Flagyl 500 Mg/Iso Soln 100 Ml IVPB 100 mls/hr Q8H XENIA Administration Potassium Phosphate 20 mmol/ 256.6667 mls @ 64.167 mls/hr 07/11/25 08:00 07/11/25 08:13 Sodium Chloride IVPB 07/11/25 11:59 64.17 mls/hr ONCE ONE Administration Sodium Chloride 250 mls @ 30 mls/hr 07/11/25 07:18 Normal Saline Iv IV CONT 07/11/25 15:37 .Q8H20M STA Insulin Aspart 3 - 6 units 07/07/25 08:00 07/11/25 07:35 Insulin Aspart (*Bkc) 100 Units/Ml SUB-Q Not Given TIDWM [facility] Protocol Metoprolol Tartrate 12.5 mg 07/10/25 21:00 07/11/25 08:12 Metoprolol Tartrate 12.5 Mg Tablet PO 12.5 mg Q12HR XENIA Administration Ondansetron HCl 4 mg 07/06/25 22:57 07/09/25 13:54 Ondansetron Inj 4 Mg/2 Ml Vial IV PUSH 4 mg Q6H PRN Administration Nausea And Vomiting Sodium Chloride 10 ml 07/07/25 14:00 07/11/25 06:12 Central Line Flush IV PUSH 10 ml Q8HR XENIA Administration Sodium Chloride 20 ml 07/07/25 06:38 Central Line Flush IV PUSH PRN PRN after blood draws Radiology Results: ITS Impressions Upper Quadrant Ultrasound 07/09/25 14:30 IMPRESSION: 1. Normal right upper quadrant ultrasound with no intra or extrahepatic biliary ductal dilation. Chest X-Ray 07/10/25 08:10 IMPRESSION: 1. Unchanged elevation right hemidiaphragm opacity bilateral lower lung zones which could represent atelectasis or pneumonia. Venous Doppler Study 07/10/25 15:15 Impression: Negative for DVT. Chest/Abdomen/Pelvis CT 07/10/25 15:44 IMPRESSION: 1. New groundglass opacities in right lung upper lobe, consistent with pneumonia. 2. Small pleural effusions. 3. Distended gallbladder with gallstone suspicious for acute cholecystitis. 4. Worsened liver mass near the gallbladder, consistent with abscess. Labs Labs: Laboratory Results - last 24 hr 07/10/25 07/10/25 07/10/25 12:02 15:21 23:06 WBC RBC Hgb Hct MCV MCH MCHC RDW Plt Count MPV Immature Gran % (Auto) Neut % (Auto) Lymph % (Auto) [place] % (Auto) Eos % (Auto) Baso % (Auto) Lymph # (Auto) [place] # (Auto) Eos # (Auto) Baso # (Auto) Abs Immat Gran (auto) Absolute Neuts (auto) Absolute Nucleated RBC Band Neutrophils % Nucleated RBC % Platelet Estimate % Immature Plt Fraction Anisocytosis [place] Cells Schistocytes PT INR APTT Sodium Potassium Chloride Carbon Dioxide Anion Gap BUN Creatinine Estim Creat Clear Calc Estimated GFR Glucose POC Capillary Glucose 142 H 131 H Calcium Phosphorus Magnesium Total Bilirubin AST ALT Alkaline Phosphatase Troponin I 0.092 H* NT-Pro-B Natriuret Pep 92319 H Total Protein Albumin 07/11/25 07/11/25 04:49 07:33 WBC 8.4 RBC 3.73 L Hgb 11.9 L Hct 35.3 L MCV 94.6 MCH 31.9 MCHC 33.7 RDW 14.5 Plt Count 21 L* MPV 12.9 H Immature Gran % (Auto) 1.9 H Neut % (Auto) 79.8 H Lymph % (Auto) 5.7 L [place] % (Auto) 11.2 H Eos % (Auto) 1.0 Baso % (Auto) 0.4 Lymph # (Auto) 0.48 L [place] # (Auto) 0.9 H Eos # (Auto) 0.1 Baso # (Auto) 0.0 Abs Immat Gran (auto) 0.16 H Absolute Neuts (auto) 6.7 Absolute Nucleated RBC 0.000 Band Neutrophils % Not Reportable Nucleated RBC % 0.0 Platelet Estimate Decreased % Immature Plt Fraction 15.0 H Anisocytosis 1+ [place] Cells 2+ Schistocytes None seen PT 14.3 INR 1.1 APTT 28.4 Sodium 140 Potassium 3.2 L Chloride 109 H Carbon Dioxide 27 Anion Gap 4 BUN 39 H Creatinine 0.89 Estim Creat Clear Calc 77 Estimated GFR > 60 Glucose 109 POC Capillary Glucose 118 H Calcium 7.6 L Phosphorus 2.2 L Magnesium 2.2 Total Bilirubin 0.6 AST 71 H ALT 83 H Alkaline Phosphatase 122 Troponin I NT-Pro-B Natriuret Pep Total Protein 5.3 L Albumin 2.6 L Quality VTE Prophylaxis VTE prophylaxis: mechanical ordered
--- NOTE | 2025-07-11 08:45 | P.CONGS_ITS ---
Assessment and Plan Assessment and plan (1) Abnormal computed tomography of gallbladder: Code(s): R93.2 - Abnormal findings on diagnostic imaging of liver and biliary tract Status: Acute Assessment and Plan: Patient was transferred from [facility] to [facility] after he was noted to be febrile, tachycardic, tachypneic, and hypotensive. Leukopenia at 1.2. He states that he was recently in [place]. He ate [employer] and woke up the next morning with severe abdominal distention and bloating. He initially thought this was constipation so he tried Pepto-Bismol and drank a Sprite. He also tried Milk of Magnesia. Patient then had an episode of emesis. Daughter at bedside endorses that the patient was having some upper abdominal pain the week prior. CT at [facility] demonstrated a distended gallbladder with gallstones and an ill-defined 3.2 cm segment left hepatic lobe hypodense lesion. Due to persistent fevers and blood cultures from 07/07 growing gram-negative bacilli, a repeat CT of the chest abdomen and pelvis was obtained and demonstrated a distended gallbladder with gallstones suspicious for acute cholecystitis. Also demonstrated was a worsened liver mass near the gallbladder now measuring at 4.3 x 1.4 cm, consistent with abscess. Patient afebrile today with stable vital signs. Normal white blood cell count. Normal bilirubin. AST/ALT mildly elevated. * Ultrasound-guided abscess drainage as well as ultrasound-guided percutaneous cholecystostomy tube placement via Interventional Radiology ordered. We will follow for results and continue to monitor with serial abdominal exams and labs. * Continue antibiotic regimen per Infectious Disease recommendations. Most recently switched to Unasyn today. (2) Right lower lobe pneumonia: Qualifiers: Pneumonia type: due to unspecified organism Qualified Code(s): J18.9 - Pneumonia, unspecified organism Code(s): J18.9 - Pneumonia, unspecified organism Status: Acute Assessment and Plan: Patient diagnosed with right lower lobe pneumonia. Chest x-ray 07/09 demonstrated unchanged mild opacities at the left lung base. Chest x-ray yesterday demonstrated unchanged opacity in bilateral lower lung zones. Most recent CT yesterday demonstrated new ground-glass opacities in right lung upper lobe, consistent with pneumonia. Small pleural effusions also identified. Patient has been on several different antibiotic regimens including azithromycin, cefepime, vancomycin, and Flagyl. He most recently was switched to Unasyn this morning. Continue per Infectious Disease recommendations. Patient currently on high-flow oxygen therapy. (3) Gram negative septicemia: Code(s): A41.50 - Gram-negative sepsis, unspecified Status: Acute Assessment and Plan: Blood cultures from 07/07 growing gram-negative bacilli. Continue IV Unasyn. (4) Thrombocytopenia: Code(s): D69.6 - Thrombocytopenia, unspecified Status: Acute Assessment and Plan: Patient had critical platelet count of 23,000 yesterday. Even lower today at 21,000. Received 2 units of platelets today. Patient getting percutaneous cholecystostomy tube as well as percutaneous abscess drainage today. (5) Diabetes mellitus: Qualifiers: Diabetes mellitus type: type 2 Diabetes mellitus joint terminal attack controller insulin use: without alf use Diabetes mellitus complication status: without complication Qualified Code(s): E11.9 - Type 2 diabetes mellitus without complications Code(s): E11.9 - Type 2 diabetes mellitus without complications Status: Acute Plan Discussed patient's case and plan of care with Dr. Sarabia. History of Present Illness Consult details Consult date: 07/11/25 Reason for consult: other (Abdominal mass on CT) Requesting physician: Rusty Flores MD Narrative: Patient is a 74-year-old male with history hypertension, paroxysmal atrial fibrillation s/p ablation in 2023, prostate cancer s/p radiation, and DM who we have been asked to see in surgical consultation for an abdominal mass. Patient presented to outside ED in [facility] on 07/06/2025 with complaints of shortness of breath, abdominal bloating, and chills. Reportedly, patient and his were recently in [place] for vacation. Two days prior to ED presentation, he recalls eating some [employer] and waking up the next morning feeling very bloated and distended. He initially thought that this was constipation so he took some Pepto-Bismol and a Sprite. He also drain milk of magnesia, which he was used to taking when he was going through radiation for prostate cancer. He states that he was unable to keep this down and immediately vomited. He noted some associated weakness, which prompted him to present to [facility] ED. Upon presentation to outside ED, he was noted to have a fever of 102.5. He was tachycardic, tachypneic, and hypotensive. Leukopenia with a white blood cell count at 1.2. Thrombocytopenia with a platelet count of 111. He will might be the initial lactic acid was 4.9, increased up to 5.7 despite receiving 30 mils per kg IV fluid bolus. A chest x-ray demonstrated pneumonia at the right lung base. Pulmonary CTA demonstrated no large central acute pulmonary embolism. CT of the abdomen and pelvis noted ill-defined 3.2 cm segment hepatic lobe hypodense lesion. Also noted cholelithiasis with associated gallbladder distension. No biliary ductal dilation. He was started on Levophed and a central line was placed. The decision was made to transfer to [facility]. Upon admitted to [facility], he was placed in ICU. A CTA of the chest abdomen and pelvis was obtained and showed no pulmonary embolism, but it was positive for a right lower lobe pneumonia and cholelithiasis with associated gallbladder wall distension. Bilirubin at this time was 2.2. Patient was started on azithromycin, cefepime, and vancomycin. He was weaned off Levophed. Hepatitis panel as well as right upper quadrant ultrasound was ordered and was normal with no intra or extrahepatic biliary ductal dilation. Hepatitis panel normal. No cholelithiasis noted. Patient did have to be restarted on Levophed on 07/07 [facility] as well as high-flow therapy for hypoxia. He spiked a fever of 106. Lactic acid of 2.4. On 07/08 he was weaned off Levophed and on 2 L of oxygen via nasal cannula. Infectious disease consulted and recommended adding Flagyl and discontinuing vancomycin. Echo obtained and showed a EF of 25-30%. Cardiology consulted and following. Blood cultures growing Gram-negative rods, suspect E coli. Due to persistent fevers and repeat cultures being positive, a repeat CT scan of the chest abdomen and pelvis was obtained on 07/10. This demonstrated pneumonia and small pleural effusions. Also demonstrated was a distended gallbladder with gallstones suspicious for acute cholecystitis. Worsened liver mass near the gallbladder measuring 4.3 x 1.4 cm, consistent with abscess. At this time, general surgery team was consulted. Patient's labs today reveal normal bilirubin and 0.6. AST and ALT only mildly elevated at 71 and 83, respectively. Elevated troponins. K +3.2. Critically low platelet count at 21. Normal white blood cell count at 8.4, down from 12.2 on 07/09. All vital signs stable. Patient is still on high-flow oxygen therapy. Afebrile. Patient switched to Unasyn today by ID doctor. Upon interview, patient is very pleasant and talkative. Patient denies any current abdominal pain. He states that he never had any specific right upper quadrant pain. He states that he had several episodes of diarrhea yesterday. No nausea or vomiting since the initial episode. Daughter at bedside notes that patient did have some upper back pain last week that went away on its own. Patient denies any previous abdominal surgeries. [facility] Past Medical History Medical History (Updated 07/11/25 @ 08:47 by Rusty Flores MD) Allergic rhinitis Body mass index [BMI] 33.0-33.9, adult (11/24/16) Cough due to CANDI inhibitor Erectile dysfunction due to arterial insufficiency Impaired glucose tolerance (oral) Prostate CA (~2019) HTN (hypertension) HLD (hyperlipidemia) Vitamin D deficiency disease Hyperglycemia Surgical History Surgical History (Updated 07/07/25 @ 02:27 by Asuncion Ruiz DO) History of tonsillectomy and adenoidectomy History of cardiac ablation for atrial fibrillation (~2023) Family History Family History Father Acute myocardial infarction, Onset Age: 83 Hypertension Asthma Sibling Hypertension Other Family history of cardiovascular disease Social History Social History (Updated 07/07/25 @ 02:31 by Asuncion Ruiz DO) Social History: Code status: Full code Surrogate decision maker: Smoking status: Former smoker Tobacco type: cigarettes Smoking end date: 04/24/88 Additional smoking assessment comments: 1 to 1.5 packs per day from [age]yo Alcohol intake: former Alcohol use details: Drinks 6 pack per day but quit at age 38 Substance use: never Substance use type: does not use Do You Feel Safe in your Home?: Yes Lack of Transportation: No Lack of Food: Never True Current Housing: I Have Housing Concerned About Future Housing: No Difficulty Paying Gas/Electric Bills: No Difficulty Paying for Meds: No Currently Unemployed: No Education: High School Diploma/GED Difficulty w/ Childcare or Family Care: No Living arrangements: with family Additional living arrangements comments: Lives with his of 49 years. They have 5 children. Occupation/Education: retired Additional occupation/education comments: He is retired from [employer]. Spiritual care concerns: No Meds Home Medications and Allergies Home Medications ?Medication ?Instructions ?Recorded ?Confirmed ?Type aspirin 81 mg tablet,delayed 81 mg PO DAILY 11/19/20 0 07/07/25 History release cholecalciferol (vitamin D3) 25 1,000 unit PO DAILY 07/07/25 History mcg (1,000 unit) tablet (Vitamin D3) cranberry 500 mg capsule 500 mg PO DAILY 11/19/20 History multivitamin 1 tablet PO DAILY 11/19/20 0 07/07/25 History fluticasone propionate 50 1 spray intranasal BID #16 g amber 07/08/22 07/07/25 Rx mcg/actuation nasal spray,suspension (Flonase Allergy Relief) sildenafil 100 mg tablet (Viagra) 100 mg PO DAILY PRN sexual 02/15/24 07/07/25 Rx activity #30 tabs metformin 500 mg tablet See Rx Instructions .Route 0 12/25/24 07/07/25 Rx .COMPLEX #90 tabs simvastatin 40 mg tablet See Rx Instructions .Route 0 03/27/25 07/07/25 Rx .COMPLEX #90 tabs losartan 100 mg tablet See Rx Instructions .Route 0 04/02/25 07/07/25 Rx .COMPLEX #90 tabs Allergies Allergy/AdvReac Type Severity Reaction Status Date / Time No Known Allergies Allergy Mild Verified 07/07/25 01:12 Vital Signs Vital Signs - 24 hr 07/10/25 08:46 07/10/25 10:00 07/10/25 10:00 Temperature 99.1 F Pulse Rate 68 80 80 Respiratory Rate 18 22 H Blood Pressure 115/88 Pulse Oximetry 98 98 Oxygen Delivery High Flow Therapy with Na Oxygen Flow Rate 40 Fraction of Inspired Oxygen 72 07/10/25 11:30 07/10/25 12:00 07/10/25 12:00 Temperature 100.5 F H Pulse Rate 100 100 Respiratory Rate 26 H Blood Pressure Pulse Oximetry 96 Oxygen Delivery High Flow Therapy with Na Oxygen Flow Rate 40 Fraction of Inspired Oxygen 60 07/10/25 12:00 07/10/25 12:30 07/10/25 13:44 Temperature 102.5 F H 103.8 F H Pulse Rate 100 127 H Respiratory Rate 26 H 24 H Blood Pressure 142/94 H Pulse Oximetry 96 94 Oxygen Delivery High Flow Therapy with Na Oxygen Flow Rate 40 Fraction of Inspired Oxygen 63 07/10/25 14:00 07/10/25 14:00 07/10/25 14:06 Temperature 104.9 F H Pulse Rate 120 H 120 H Respiratory Rate 17 Blood Pressure 151/90 H Pulse Oximetry 93 Oxygen Delivery Oxygen Flow Rate Fraction of Inspired Oxygen 07/10/25 15:06 07/10/25 16:00 07/10/25 16:00 Temperature 103.8 F H Pulse Rate 90 90 Respiratory Rate 17 Blood Pressure Pulse Oximetry 96 Oxygen Delivery High Flow Therapy with Na Oxygen Flow Rate 40 Fraction of Inspired Oxygen 60 07/10/25 16:00 07/10/25 16:57 07/10/25 18:00 Temperature 101.7 F H Pulse Rate 90 88 83 Respiratory Rate 13 20 Blood Pressure 84/61 L Pulse Oximetry 98 96 Oxygen Delivery High Flow Therapy with Na Oxygen Flow Rate 40 Fraction of Inspired Oxygen 63 07/10/25 18:00 07/10/25 20:00 07/10/25 20:00 Temperature 100.0 F H Pulse Rate 77 74 Respiratory Rate 19 Blood Pressure 92/69 L Pulse Oximetry 98 96 Oxygen Delivery High Flow Therapy with Na Oxygen Flow Rate 40 Fraction of Inspired Oxygen 60 07/10/25 20:00 07/10/25 22:00 07/10/25 22:00 Temperature 99.7 F H 99.2 F Pulse Rate 78 69 69 Respiratory Rate 19 17 Blood Pressure 89/74 L 89/67 L Pulse Oximetry 95 99 Oxygen Delivery Oxygen Flow Rate Fraction of Inspired Oxygen 07/11/25 00:00 07/11/25 00:00 07/11/25 00:00 Temperature 98.5 F Pulse Rate 67 66 Respiratory Rate 18 Blood Pressure 91/67 L Pulse Oximetry 100 100 Oxygen Delivery High Flow Therapy with Na Oxygen Flow Rate 40 Fraction of Inspired Oxygen 60 07/11/25 02:00 07/11/25 02:00 07/11/25 04:00 Temperature 98.2 F Pulse Rate 62 62 Respiratory Rate 17 Blood Pressure 110/72 Pulse Oximetry 99 97 Oxygen Delivery High Flow Therapy with Na Oxygen Flow Rate 40 Fraction of Inspired Oxygen 60 07/11/25 04:00 07/11/25 04:00 07/11/25 05:48 Temperature 98.7 F Pulse Rate 70 70 74 Respiratory Rate 12 10 L Blood Pressure 105/76 Pulse Oximetry 97 99 Oxygen Delivery High Flow Therapy with Na Oxygen Flow Rate 40 Fraction of Inspired Oxygen 63 07/11/25 06:00 07/11/25 06:00 07/11/25 07:45 Temperature Pulse Rate 70 70 Respiratory Rate 12 Blood Pressure 110/79 Pulse Oximetry 96 96 Oxygen Delivery High Flow Therapy with Na Oxygen Flow Rate 40 Fraction of Inspired Oxygen 63 07/11/25 08:12 07/11/25 08:12 07/11/25 08:35 Temperature Pulse Rate 73 Respiratory Rate Blood Pressure Pulse Oximetry 97 92 Oxygen Delivery High Flow Therapy with Na High Flow Therapy with Na Oxygen Flow Rate 40 30 Fraction of Inspired Oxygen 46 35 Exam 2 Const: General: comfortable and no acute distress Eyes: General: appearance normal, both eyes and all related structures Neck: Neck: supple Resp: Effort & Inspection: normal respiratory effort Cardio: Rate: regular rate GI: Inspection: distended GI Palp: Yes Soft to palpation, No Tenderness to palpation present (GI), No Guarding due to palpation present (GI) and Yes Hernia present Auscultation: normal bowel sounds Other: Mildly distended abdomen. Umbilical hernia present. Nontender. : General: Yes bladder normal to palpation Urinary Catheter: Urinary Catheter: patent and draining Skin: General skin exam: normal color and no rashes or lesions noted Neuro: Speech: normal speech Extrem: General: normal to inspection Psych: Mental Status: mental status grossly normal Results Labs 07/11/25 04:49 07/11/25 04:49 Labs: Abnormal lab results 07/10/25 07/10/25 07/10/25 Range/Units 12:02 15:21 23:06 RBC (4.6-6.20) M/mm3 Hgb (14.0-18.0) g/dL Hct (42.0-52.0) % Plt Count (150-375) k/mm3 MPV (7.4-10.4) fl Immature Gran % (Auto) (0-0.5) % Neut % (Auto) (45.5-73.1) % Lymph % (Auto) (18.3-44.2) % [place] % (Auto) (2.6-8.5) % Lymph # (Auto) (0.9-3.2) K/mm3 [place] # (Auto) (0.1-0.6) K/mm3 Abs Immat Gran (auto) (0.00-0.031) K/mm3 % Immature Plt Fraction (0.9-11.2) % Potassium (3.4-5.0) mmol/L Chloride (98-107) mmol/L BUN (9-20) mg/dL POC Capillary Glucose 142 H 131 H (65-105) mg/dl Calcium (8.4-10.2) mg/dL Phosphorus (2.5-4.5) mg/dL AST (17-59) U/L ALT (6-50) U/L Troponin I 0.092 H* (0.000-0.034) ng/mL NT-Pro-B Natriuret Pep 36709 H (19.9-100) pg/mL Total Protein (6.3-8.2) g/dL Albumin (3.5-5.1) g/dL 07/11/25 07/11/25 Range/Units 04:49 07:33 RBC 3.73 L (4.6-6.20) M/mm3 Hgb 11.9 L (14.0-18.0) g/dL Hct 35.3 L (42.0-52.0) % Plt Count 21 L* (150-375) k/mm3 MPV 12.9 H (7.4-10.4) fl Immature Gran % (Auto) 1.9 H (0-0.5) % Neut % (Auto) 79.8 H (45.5-73.1) % Lymph % (Auto) 5.7 L (18.3-44.2) % [place] % (Auto) 11.2 H (2.6-8.5) % Lymph # (Auto) 0.48 L (0.9-3.2) K/mm3 [place] # (Auto) 0.9 H (0.1-0.6) K/mm3 Abs Immat Gran (auto) 0.16 H (0.00-0.031) K/mm3 % Immature Plt Fraction 15.0 H (0.9-11.2) % Potassium 3.2 L (3.4-5.0) mmol/L Chloride 109 H (98-107) mmol/L BUN 39 H (9-20) mg/dL POC Capillary Glucose 118 H (65-105) mg/dl Calcium 7.6 L (8.4-10.2) mg/dL Phosphorus 2.2 L (2.5-4.5) mg/dL AST 71 H (17-59) U/L ALT 83 H (6-50) U/L Troponin I (0.000-0.034) ng/mL NT-Pro-B Natriuret Pep (19.9-100) pg/mL Total Protein 5.3 L (6.3-8.2) g/dL Albumin 2.6 L (3.5-5.1) g/dL Diabetes panel 07/11/25 Range/Units 04:49 Sodium 140 (137-145) mmol/L Potassium 3.2 L (3.4-5.0) mmol/L Chloride 109 H (98-107) mmol/L Carbon Dioxide 27 (22-30) mmol/L BUN 39 H (9-20) mg/dL Creatinine 0.89 (0.7-1.3) mg/dL Glucose 109 (65-110) mg/dL Calcium 7.6 L (8.4-10.2) mg/dL AST 71 H (17-59) U/L ALT 83 H (6-50) U/L Alkaline Phosphatase 122 (38-126) U/L Total Protein 5.3 L (6.3-8.2) g/dL Albumin 2.6 L (3.5-5.1) g/dL Calcium panel 07/11/25 Range/Units 04:49 Calcium 7.6 L (8.4-10.2) mg/dL Phosphorus 2.2 L (2.5-4.5) mg/dL Albumin 2.6 L (3.5-5.1) g/dL Pituitary panel 07/11/25 Range/Units 04:49 Sodium 140 (137-145) mmol/L Potassium 3.2 L (3.4-5.0) mmol/L Chloride 109 H (98-107) mmol/L Carbon Dioxide 27 (22-30) mmol/L BUN 39 H (9-20) mg/dL Creatinine 0.89 (0.7-1.3) mg/dL Glucose 109 (65-110) mg/dL Calcium 7.6 L (8.4-10.2) mg/dL Adrenal panel 07/11/25 Range/Units 04:49 Sodium 140 (137-145) mmol/L Potassium 3.2 L (3.4-5.0) mmol/L Chloride 109 H (98-107) mmol/L Carbon Dioxide 27 (22-30) mmol/L BUN 39 H (9-20) mg/dL Creatinine 0.89 (0.7-1.3) mg/dL Glucose 109 (65-110) mg/dL Calcium 7.6 L (8.4-10.2) mg/dL Total Bilirubin 0.6 (0.2-1.3) mg/dL AST 71 H (17-59) U/L ALT 83 H (6-50) U/L Alkaline Phosphatase 122 (38-126) U/L Total Protein 5.3 L (6.3-8.2) g/dL Albumin 2.6 L (3.5-5.1) g/dL All other labs normal.
[2025-07-11 09:05] LABS: Troponin I 0.036 ng/mL (0.000-0.034)
[2025-07-11] MEDS: SODIUM CHLORIDE 0.9% IV 250 ML 30 ML IV CONT (09:38)
[2025-07-11] MEDS: ARTIFICIAL TEARS OPHTH SOLN 15 ML BOTTLE 1 DROP EACH EYE ×2 (09:38→18:39)
[2025-07-11] MEDS: AMPICILLIN SODIUM/SULBACTAM 3 GM in SODIUM CHLORIDE 0.9% IV 100 ML 200 ML IVPB ×3 (10:46→23:24)
[2025-07-11] MEDS: ACETAMINOPHEN 325 MG TABLET 650 MG PO ×2 (11:42→14:49)
[2025-07-11] MEDS: FUROSEMIDE INJ 40 MG/4 ML VIAL IV PUSH (11:44)
[2025-07-11 12:19] LABS: Hematocrit 35.9 % (42.0-52.0); Hemoglobin 12.1 g/dL (14.0-18.0); Immature Platelet Fraction Pct 8.0 % (0.9-11.2); Mean Corpuscular HGB Conc 33.7 g/dl (32-36); Mean Corpuscular Hemoglobin 31.6 pg (26-34); Mean Corpuscular Volume 93.7 fl (80-100); Platelet Count Result 56 k/mm3 (150-375); Red Blood Count 3.83 M/mm3 (4.6-6.20); White Blood Count 10.2 K/mm3 (4.5-10.0)
--- NOTE | 2025-07-11 13:15 | PCOTNOTE ---
Patient out of the room at this time, Patient went down having a procedures to have drains placed.
[2025-07-11] MEDS: MORPHINE SULFATE (*CRX) 4 MG/ML INJ IV PUSH (13:30)
--- NOTE | 2025-07-11 14:27 | ECG_ITS ---
Test Date: 2025-07-11 14:28:58 Measurements Intervals [place] Rate: 112 P: 46 LA: 197 QRS: -61 QRSD: 106 T: 15 QT: 306 QTc: 419 Interpretive Statements SINUS TACHYCARDIA POSSIBLE LEFT ATRIAL ENLARGEMENT [-0.1mV P WAVE IN V1/V2] POSSIBLE ANTERIOR MYOCARDIAL INFARCTION [30 ms Q WAVE IN V3/V4, OR R < 0.2 mV IN V4], OF INDETERMINATE AGE INFERIOR MYOCARDIAL INFARCTION [40+ ms Q WAVE AND/OR ST/T ABNORMALITY IN II/aVF], PROBABLY OLD ABNORMAL ECG No previous ECG available for comparison Electronically Signed On 07-11-2025 16:51:34 CDT by Grant Meeks M.D.
[2025-07-11] MEDS: METOPROLOL TARTRATE INJ 5 MG/5 ML VIAL IV PUSH (14:31)
[2025-07-11] MEDS: IBUPROFEN IV 400 MG in SODIUM CHLORIDE 0.9% IV 100 ML 208 MG IVPB (14:31)
[2025-07-11 15:29] LABS: Anion Gap 5 mmol/L (4-12); Blood Urea Nitrogen 37 mg/dL (9-20); Calcium 7.6 mg/dL (8.4-10.2); Carbon Dioxide 27 mmol/L (22-30); Chloride 108 mmol/L (98-107); Estimated CRCL calculation 81 ml/min; Estimated Glomerular Filt Rate > 60; Glucose 135 mg/dL (65-110); Magnesium 1.8 mg/dL (1.6-2.3); Potassium 3.4 mmol/L (3.4-5.0); Sodium 140 mmol/L (137-145)
[2025-07-11] MEDS: MAGNESIUM SULF 2 GM/WATER 50ML 2 GM/50 ML BAG IVPB (16:50)
[2025-07-11] MEDS: ALBUMIN HUMAN 5% 250 ML IV CONT (16:51)
[2025-07-11] MEDS: KCL 40 MEQ/WATER 100 ML 100 ML 25 ML IVPB (16:51)
--- NOTE | 2025-07-11 17:16 | P.PNIM_ITS ---
Progress Note: A&P Assessment and Plan (1) Septic shock: Code(s): A41.9 - Sepsis, unspecified organism; R65.21 - Severe sepsis with septic shock Status: Acute Assessment and Plan: Patient presented to the outside hospital in [facility] with complains of shortness of breath, abdominal bloating. -CTA chest abdomen and pelvis showed no pulmonary embolism, cholelithiasis with possible acute cholecystitis -ultrasound of right upper quadrant was negative for cholecystitis -UA suggestive of UTI and CT scan was negative for any kidney stones US liver negative for Acute cholecystitis Blood culture (2) Right lower lobe pneumonia: Qualifiers: Pneumonia type: due to unspecified organism Qualified Code(s): J18.9 - Pneumonia, unspecified organism Code(s): J18.9 - Pneumonia, unspecified organism Status: Acute Assessment and Plan: Continue antibiotics as above, supplemental oxygen via high-flow therapy -respiratory panel will has been ordered and negative Add incentive spirometry Lasix for pulmonary edema (3) Abnormal computed tomography of gallbladder: Code(s): R93.2 - Abnormal findings on diagnostic imaging of liver and biliary tract Status: Acute Assessment and Plan: CTA abdomen and pelvis at the outside hospital showed cholelithiasis with associated gallbladder wall distention with acute cholecystitis might be likely cause. -elevated LFTs and bilirubin -07/07: RUQ ultrasound done and was negative -hepatitis panel is negative -07/09: Bilirubin has resolved, LFTs trending down (4) Congestive heart failure: Code(s): I50.9 - Heart failure, unspecified Status: Acute Assessment and Plan: Chest x-ray shows diffuse bilateral infiltrates. Patient had elevated BNP on presentation Echocardiogram shows EF of 25-30% Lasix IV x1 today Plan 73 y/o male presented with fever and ongoing cholecystitis with possible hepatic abscess and patient has pancytopenia, seen by surgery, patient is not a candidate for surgical intervention, and recommended percutaneous drainage of the hepatic fluid collection and also perform a percutaneous cholecystostomy tube at the same time. Patient will be getting platelet transfusions per the CCP's orders, and if Radiology feel safe performing this then percutaneous drainage, patient had successful ultrasound-guided cholecystostomy tube placement and bile was sent for the culture, patien is being treated with Ampicillin,, will follow up on culture and sensitivity, will monitor, patient is seen by surgery service and enrollment services vice president and appreciate. Bacteremia Blood culture positive for GNB Contineu Cefepime per ID repeat CT AP today continue monitoring blood cultures DVT prophylaxis: Lovenox Stress ulcer prophylaxis: Not indicated Nutrition: Diet ordered Code Status: Full code PT/OT Subjective Date/time seen: 07/11/25 17:16 Interval history: Comfortable at bedside 73 y/o male presented with fever and ongoing cholecystitis with possible hepatic abscess and patient has pancytopenia, seen by surgery, patient is not a candidate for surgical intervention, and recommended percutaneous drainage of the hepatic fluid collection and also perform a percutaneous cholecystostomy tube at the same time. Patient will be getting platelet transfusions per the CCP's orders, and if Radiology feel safe performing this then percutaneous drainage, patient had successful ultrasound-guided cholecystostomy tube placement and bile was sent for the culture, patien is being treated with Ampicillin,, will follow up on culture and sensitivity, will monitor, patient is seen by surgery service and enrollment services vice president and appreciate. Review of Systems Review of Systems: All systems reviewed & are unremarkable except as noted in HPI and below Exam Narrative: Patient is comfortable, NAD HEENT: eyes are clear and none icteric LUNGS:CTA HEART: RR S1S2 ABD: BS+, Soft and nontender Lower extremities: no edema SKIN: nonjaundiced Neuro: grossly intact. Objective Data Vital Signs Vital Signs: Vital Signs - 24 hr 07/10/25 18:00 07/10/25 18:00 07/10/25 20:00 Temperature 37.8 C H Pulse Rate 83 77 Respiratory Rate 19 Blood Pressure 92/69 L Pulse Oximetry 98 96 Oxygen Delivery High Flow Therapy with Na Oxygen Flow Rate 40 Fraction of Inspired Oxygen 60 07/10/25 20:00 07/10/25 20:00 07/10/25 22:00 Temperature 37.6 C H 37.3 C Pulse Rate 74 78 69 Respiratory Rate 19 17 Blood Pressure 89/74 L 89/67 L Pulse Oximetry 95 99 Oxygen Delivery Oxygen Flow Rate Fraction of Inspired Oxygen 07/10/25 22:00 07/11/25 00:00 07/11/25 00:00 Temperature Pulse Rate 69 67 Respiratory Rate Blood Pressure Pulse Oximetry 100 Oxygen Delivery High Flow Therapy with Na Oxygen Flow Rate 40 Fraction of Inspired Oxygen 60 07/11/25 00:00 07/11/25 02:00 07/11/25 02:00 Temperature 36.9 C 36.8 C Pulse Rate 66 62 62 Respiratory Rate 18 17 Blood Pressure 91/67 L 110/72 Pulse Oximetry 100 99 Oxygen Delivery Oxygen Flow Rate Fraction of Inspired Oxygen 07/11/25 04:00 07/11/25 04:00 07/11/25 04:00 Temperature 37.1 C Pulse Rate 70 70 Respiratory Rate 12 Blood Pressure 105/76 Pulse Oximetry 97 97 Oxygen Delivery High Flow Therapy with Na Oxygen Flow Rate 40 Fraction of Inspired Oxygen 60 07/11/25 05:48 07/11/25 06:00 07/11/25 06:00 Temperature Pulse Rate 74 70 70 Respiratory Rate 10 L 12 Blood Pressure 110/79 Pulse Oximetry 99 96 Oxygen Delivery High Flow Therapy with Na Oxygen Flow Rate 40 Fraction of Inspired Oxygen 63 07/11/25 07:45 07/11/25 08:00 07/11/25 08:00 Temperature Pulse Rate 77 Respiratory Rate Blood Pressure Pulse Oximetry 96 95 Oxygen Delivery High Flow Therapy with Na High Flow Therapy with Na Oxygen Flow Rate 40 30 Fraction of Inspired Oxygen 63 35 07/11/25 08:00 07/11/25 08:12 07/11/25 08:12 Temperature 37.3 C Pulse Rate 71 73 Respiratory Rate 17 Blood Pressure 127/85 Pulse Oximetry 93 97 Oxygen Delivery High Flow Therapy with Na Oxygen Flow Rate 40 Fraction of Inspired Oxygen 46 07/11/25 08:35 07/11/25 09:40 07/11/25 09:56 Temperature 37.3 C 37.4 C Pulse Rate 77 76 Respiratory Rate 20 17 Blood Pressure 117/88 118/93 H Pulse Oximetry 92 95 94 Oxygen Delivery High Flow Therapy with Na Oxygen Flow Rate 30 Fraction of Inspired Oxygen 35 07/11/25 10:00 07/11/25 10:00 07/11/25 10:12 Temperature 37.4 C 37.4 C Pulse Rate 72 72 72 Respiratory Rate 15 20 Blood Pressure 118/93 H 121/86 Pulse Oximetry 94 95 Oxygen Delivery Oxygen Flow Rate Fraction of Inspired Oxygen 07/11/25 10:18 07/11/25 10:34 07/11/25 10:50 Temperature 37.4 C 37.3 C Pulse Rate 77 74 Respiratory Rate 19 18 Blood Pressure 117/67 127/82 Pulse Oximetry 95 96 95 Oxygen Delivery High Flow Therapy with Na Oxygen Flow Rate 30 Fraction of Inspired Oxygen 35 07/11/25 10:53 07/11/25 11:42 07/11/25 11:59 Temperature 37.5 C 37.7 C H Pulse Rate 72 Respiratory Rate 18 Blood Pressure 125/84 Pulse Oximetry 94 93 Oxygen Delivery High Flow Therapy with Na Oxygen Flow Rate 20 Fraction of Inspired Oxygen 30 07/11/25 12:00 07/11/25 12:00 07/11/25 12:42 Temperature 37.7 C H 37.6 C Pulse Rate 67 75 Respiratory Rate 16 Blood Pressure 126/89 Pulse Oximetry 93 Oxygen Delivery Oxygen Flow Rate Fraction of Inspired Oxygen 07/11/25 13:00 07/11/25 14:00 07/11/25 14:00 Temperature 37.7 C H Pulse Rate 76 76 Respiratory Rate 18 Blood Pressure 123/93 H Pulse Oximetry 96 98 Oxygen Delivery High Flow Therapy with Na Oxygen Flow Rate 20 Fraction of Inspired Oxygen 30 07/11/25 14:31 07/11/25 14:31 07/11/25 14:49 Temperature 38.9 C H 39.2 C H Pulse Rate 140 H Respiratory Rate Blood Pressure Pulse Oximetry Oxygen Delivery Oxygen Flow Rate Fraction of Inspired Oxygen 07/11/25 15:31 07/11/25 15:49 07/11/25 16:00 Temperature 39.1 C H 38.8 C H Pulse Rate Respiratory Rate Blood Pressure Pulse Oximetry 96 Oxygen Delivery High Flow Nasal Cannula Oxygen Flow Rate 10 Fraction of Inspired Oxygen 07/11/25 16:00 07/11/25 16:00 07/11/25 16:49 Temperature 38.8 C H Pulse Rate 90 95 Respiratory Rate 12 Blood Pressure 99/74 L Pulse Oximetry 96 98 Oxygen Delivery High Flow Nasal Cannula Oxygen Flow Rate 8 Fraction of Inspired Oxygen Intake/Output Intake/Output: Intake & Output 07/08/25 07/09/25 07/10/25 07/11/25 23:59 23:59 23:59 23:59 Intake Total 2901.5 1394 1644 1368 Output Total 1325 2200 3400 3325 Balance 1576.5 -806 -1756 -1957 Meds/Results Medications: Active Medications Generic Name Dose Route Start Last Admin Trade Name Freq PRN Reason Stop Dose Admin Acetaminophen 650 mg 07/06/25 22:57 07/11/25 11:42 Acetaminophen 325 Mg Tablet PO 650 mg Q4H PRN Administration Mild Pain (1-3) or Fever Al Hydrox/Mg Hydrox/Simethicone 30 ml 09/12/25 22:57 Mag Hydrox/Al Hydrox/Simeth 30 Ml Udc PO QID PRN Dyspepsia Artificial Tears 1 drop 07/11/25 09:15 07/11/25 09:38 Artificial Tears Ophth Soln 15 Ml Bottle EACH EYE 1 drop QID PRN Administration Dry Eye(s) Bisacodyl 5 mg 07/06/25 22:57 Bisacodyl 5 Mg Tablet Ec PO DAILY PRN Constipation Dextrose 12.5 gm 07/06/25 23:18 Dextrose 50% 25 Gm/50 Ml Syringe IV PUSH PRN PRN Hypoglycemia Protocol Enoxaparin Sodium 40 mg 07/07/25 09:00 07/08/25 07:47 Enoxaparin 40 Mg/0.4 Ml Syringe SUB-Q Not Given On Hold: 07/08/25 10:03 DAILY XENIA Fluticasone Propionate 1 spray 07/07/25 09:00 07/11/25 08:16 Fluticasone Propionate 0.05% Na Spr 16 Gm Btl (*[facility]) NASAL 1 spray Q12HR XENIA Administration Glucagon 1 mg 07/06/25 23:18 Glucagon For Inj 1 Mg Vial IM PRN PRN Hypoglycemia Protocol Glucose 15 gm 07/06/25 23:18 Glucose Oral Gel 15 Gm Of Glucse In 37.5 Gm Tube PO PRN PRN Hypoglycemia Protocol Dextrose 1,000 mls @ 100 mls/hr 07/06/25 23:18 Dextrose 5% 1,000 Ml IVPB PRN PRN Hypoglycemia Protocol Ibuprofen 400 mg/ Sodium 104 mls @ 208 mls/hr 07/07/25 17:27 07/11/25 15:01 Chloride IVPB Infused Q8H PRN Infusion Pain Rated 4-6 Ampicillin Sodium/Sulbactam 100 mls @ 200 mls/hr 07/11/25 10:30 07/11/25 11:36 Sodium 3 gm/ Sodium Chloride IVPB Infused Q6HR XENIA Infusion Potassium Chloride 100 mls @ 25 mls/hr 07/11/25 16:41 07/11/25 16:51 Kcl 40 Meq/Water 100 Ml IVPB 07/11/25 20:40 25 mls/hr ONCE ONE Administration Magnesium Sulfate 2 gm in 50 mls @ 25 mls/hr 07/11/25 16:41 07/11/25 16:50 Magnesium Sulf 2 Gm/Water 50ml IVPB 07/11/25 18:40 25 mls/hr ONCE ONE Administration Albumin Human 250 mls @ 62.5 mls/hr 07/11/25 17:00 07/11/25 16:51 Albumin Human 5% IV CONT 07/11/25 20:59 62.5 mls/hr .Q4H ONE Administration Insulin Aspart 3 - 6 units 07/07/25 08:00 07/11/25 15:58 Insulin Aspart (*Bkc) 100 Units/Ml SUB-Q Not Given TIDWM [facility] Protocol Metoprolol Tartrate 12.5 mg 07/10/25 21:00 07/11/25 08:12 Metoprolol Tartrate 12.5 Mg Tablet PO 12.5 mg Q12HR XENIA Administration Morphine Sulfate 2 mg 07/11/25 12:23 Morphine Sulfate (*Crx) 2 Mg/Ml Inj IV PUSH Q2H PRN Pain Rated 7-10 Morphine Sulfate 4 mg 07/11/25 12:23 07/11/25 13:30 Morphine Sulfate (*Crx) 4 Mg/Ml Inj IV PUSH 4 mg ONCE PRN Administration Preprocedure Ondansetron HCl 4 mg 07/06/25 22:57 07/09/25 13:54 Ondansetron Inj 4 Mg/2 Ml Vial IV PUSH 4 mg Q6H PRN Administration Nausea And Vomiting Potassium Chloride 40 meq 07/11/25 18:30 Potassium Chloride 20 Meq Packet (For Liquid) PO 07/11/25 18:31 ONCE ONE Sodium Chloride 10 ml 07/07/25 14:00 07/11/25 11:45 Central Line Flush IV PUSH 10 ml Q8HR XENIA Administration Sodium Chloride 20 ml 07/07/25 06:38 Central Line Flush IV PUSH PRN PRN after blood draws Radiology Results: ITS Impressions Upper Quadrant Ultrasound 07/09/25 14:30 IMPRESSION: 1. Normal right upper quadrant ultrasound with no intra or extrahepatic biliary ductal dilation. Chest X-Ray 07/10/25 08:10 IMPRESSION: 1. Unchanged elevation right hemidiaphragm opacity bilateral lower lung zones which could represent atelectasis or pneumonia. Venous Doppler Study 07/10/25 15:15 Impression: Negative for DVT. Chest/Abdomen/Pelvis CT 07/10/25 15:44 IMPRESSION: 1. New groundglass opacities in right lung upper lobe, consistent with pneumonia. 2. Small pleural effusions. 3. Distended gallbladder with gallstone suspicious for acute cholecystitis. 4. Worsened liver mass near the gallbladder, consistent with abscess. Cholecystostomy 07/11/25 14:51 IMPRESSION: 1. Successful ultrasound-guided cholecystostomy tube placement. 2. 20 mL bile was sent for aerobic, anaerobic, and fungal cultures. 3. The catheter will be managed by Dr. Sarabia. A catheter cholangiogram may be performed not less than 48 hours after tube placement if clinically indicated to assess cystic duct patency. If cholecystectomy is not eventually performed and the infectious episode has resolved, the tube may be removed over a guidewire, preferably not less than 3 weeks after placement to allow time for a mature catheter tract to form to prevent bile leakage and peritonitis. Labs Labs: Laboratory Results - last 24 hr 07/10/25 07/10/25 07/11/25 15:21 23:06 04:49 WBC 8.4 RBC 3.73 L Hgb 11.9 L Hct 35.3 L MCV 94.6 MCH 31.9 MCHC 33.7 RDW 14.5 Plt Count 21 L* MPV 12.9 H Immature Gran % (Auto) 1.9 H Neut % (Auto) 79.8 H Lymph % (Auto) 5.7 L Warren % (Auto) 11.2 H Eos % (Auto) 1.0 Baso % (Auto) 0.4 Lymph # (Auto) 0.48 L Warren # (Auto) 0.9 H Eos # (Auto) 0.1 Baso # (Auto) 0.0 Abs Immat Gran (auto) 0.16 H Absolute Neuts (auto) 6.7 Absolute Nucleated RBC 0.000 Band Neutrophils % Not Reportable Nucleated RBC % 0.0 Platelet Estimate Decreased % Immature Plt Fraction 15.0 H Anisocytosis 1+ Donovan Cells 2+ Schistocytes None seen PT 14.3 INR 1.1 APTT 28.4 Sodium 140 Potassium 3.2 L Chloride 109 H Carbon Dioxide 27 Anion Gap 4 BUN 39 H Creatinine 0.89 Estim Creat Clear Calc 77 Estimated GFR > 60 Glucose 109 POC Capillary Glucose 131 H Calcium 7.6 L Phosphorus 2.2 L Magnesium 2.2 Total Bilirubin 0.6 AST 71 H ALT 83 H Alkaline Phosphatase 122 Troponin I NT-Pro-B Natriuret Pep 74360 H Total Protein 5.3 L Albumin 2.6 L Blood Type 07/11/25 07/11/25 07/11/25 07:33 08:10 08:33 WBC RBC Hgb Hct MCV MCH MCHC RDW Plt Count MPV Immature Gran % (Auto) Neut % (Auto) Lymph % (Auto) Warren % (Auto) Eos % (Auto) Baso % (Auto) Lymph # (Auto) Warren # (Auto) Eos # (Auto) Baso # (Auto) Abs Immat Gran (auto) Absolute Neuts (auto) Absolute Nucleated RBC Band Neutrophils % Nucleated RBC % Platelet Estimate % Immature Plt Fraction Anisocytosis Donovan Cells Schistocytes PT INR APTT Sodium Potassium Chloride Carbon Dioxide Anion Gap BUN Creatinine Estim Creat Clear Calc Estimated GFR Glucose POC Capillary Glucose 118 H Calcium Phosphorus Magnesium Total Bilirubin AST ALT Alkaline Phosphatase Troponin I 0.036 H* NT-Pro-B Natriuret Pep Total Protein Albumin Blood Type A Positive 07/11/25 07/11/25 07/11/25 11:41 12:13 15:11 WBC 10.2 H RBC 3.83 L Hgb 12.1 L Hct 35.9 L MCV 93.7 MCH 31.6 MCHC 33.7 RDW 14.6 H Plt Count 56 L D MPV 11.2 H Immature Gran % (Auto) Neut % (Auto) Lymph % (Auto) Warren % (Auto) Eos % (Auto) Baso % (Auto) Lymph # (Auto) Warren # (Auto) Eos # (Auto) Baso # (Auto) Abs Immat Gran (auto) Absolute Neuts (auto) Absolute Nucleated RBC Band Neutrophils % Nucleated RBC % Platelet Estimate % Immature Plt Fraction 8.0 Anisocytosis [place] Cells Schistocytes PT INR APTT Sodium 140 Potassium 3.4 Chloride 108 H Carbon Dioxide 27 Anion Gap 5 BUN 37 H Creatinine 0.84 Estim Creat Clear Calc 81 Estimated GFR > 60 Glucose 135 H POC Capillary Glucose 120 H Calcium 7.6 L Phosphorus Magnesium 1.8 Total Bilirubin AST ALT Alkaline Phosphatase Troponin I NT-Pro-B Natriuret Pep Total Protein Albumin Blood Type Quality VTE Prophylaxis VTE prophylaxis: mechanical ordered
[2025-07-11] MEDS: POTASSIUM CHLORIDE 20 MEQ PACKET (FOR LIQUID) 40 MEQ PO (18:28)
--- NOTE | 2025-07-11 19:15 | P.PNINF_ITS ---
Progress Note: A&P Assessment and Plan (1) Gram negative septicemia: Code(s): A41.50 - Gram-negative sepsis, unspecified Status: Acute (2) Septic shock: Code(s): A41.9 - Sepsis, unspecified organism; R65.21 - Severe sepsis with septic shock Status: Acute (3) Abdominal pain in male: Code(s): R10.9 - Unspecified abdominal pain Status: Acute (4) Diarrhea: Code(s): R19.7 - Diarrhea, unspecified Status: Acute (5) Elevated LFTs: Code(s): R79.89 - Other specified abnormal findings of blood chemistry Status: Acute (6) Acute hypoxic respiratory failure: Code(s): J96.01 - Acute respiratory failure with hypoxia Status: Acute (7) Thrombocytopenia: Code(s): D69.6 - Thrombocytopenia, unspecified Status: Acute (8) Ejection fraction < 50%: Status: Acute Plan # Pansensitive E coli and Bacteroides bacteremia associated with complicated cholecystitis with associated liver abscess. -- now status post IR drain placement. Procedure cultures pending. Flu # Severe sepsis with septic shock. -- now off of pressors. # Hypoxemia. -- may be a manifestation of sepsis, heart failure with pulmonary edema, or pneumonia. -- progressing toward improvement. # Diminished ejection fraction. # Mild transaminitis. -- improving. Bilirubin normalized. # Thrombocytopenia. -- suspect sepsis versus medication induced Plan: -- to cover for E coli, Bacteroides, and for the possibility that More may be contributing to thrombocytopenia will change antibiotics to Unasyn. -- continue to follow repeat blood cultures as well as today's gallbladder for/Liver drain culture. Patient was seen via video telehealth consultation with the assistance of staff. Chart, data, and patient independently reviewed. Patient was located at [facility] while I was located in my [place] office. Received verbal consent from patient. Subjective Date/time seen: 07/11/25 19:15 Interval history: * 07/10/2025: T-max of 103? this afternoon with rigors. O2 saturation 98% on 40% high-flow nasal cannula. Off of pressors. White blood cell count normal. GFR greater than 60. * * 07/11/2025: Repeat CT scan now reaffirm main suspected cholecystitis and with associated liver abscess. Percutaneous drain placed. Continued fever but oxygenation improved. While presentation blood cultures at outside emergency room positive for E coli, presentation cultures at this hospital positive for Bacteroides. * Blood cultures 07/07 at outside hospital: pansensitive E coli. * Blood cultures 07/07: Bacteroides 6 * Blood cultures 07/08: Pending * Stool culture 07/08: pending * Cefepime 2 g IV q.12 hours 07/07 -- Review of Systems Review of Systems: All systems reviewed & are unremarkable except as noted in HPI and below Exam Narrative: Awake and alert and able to answer questions. Utilizing high-flow nasal cannula with decreased FiO2. No conjunctivitis. Some tachypnea but not in respiratory distress. Abdomen with some distention. Last bowel movement which was loose occurred yesterday. No evidence of rash. No pruritus. Left IJ present and placed at outside institution. Objective Data Vital Signs Vital Signs: Vital Signs - 24 hr 07/10/25 20:00 07/10/25 20:00 07/10/25 20:00 Temperature 99.7 F H Pulse Rate 74 78 Respiratory Rate 19 Blood Pressure 89/74 L Pulse Oximetry 96 95 Oxygen Delivery High Flow Therapy with Na Oxygen Flow Rate 40 Fraction of Inspired Oxygen 60 07/10/25 22:00 07/10/25 22:00 07/11/25 00:00 Temperature 99.2 F Pulse Rate 69 69 Respiratory Rate 17 Blood Pressure 89/67 L Pulse Oximetry 99 100 Oxygen Delivery High Flow Therapy with Na Oxygen Flow Rate 40 Fraction of Inspired Oxygen 60 07/11/25 00:00 07/11/25 00:00 07/11/25 02:00 Temperature 98.5 F 98.2 F Pulse Rate 67 66 62 Respiratory Rate 18 17 Blood Pressure 91/67 L 110/72 Pulse Oximetry 100 99 Oxygen Delivery Oxygen Flow Rate Fraction of Inspired Oxygen 07/11/25 02:00 07/11/25 04:00 07/11/25 04:00 Temperature 98.7 F Pulse Rate 62 70 Respiratory Rate 12 Blood Pressure 105/76 Pulse Oximetry 97 97 Oxygen Delivery High Flow Therapy with Na Oxygen Flow Rate 40 Fraction of Inspired Oxygen 60 07/11/25 04:00 07/11/25 05:48 07/11/25 06:00 Temperature Pulse Rate 70 74 70 Respiratory Rate 10 L 12 Blood Pressure 110/79 Pulse Oximetry 99 96 Oxygen Delivery High Flow Therapy with Na Oxygen Flow Rate 40 Fraction of Inspired Oxygen 63 07/11/25 06:00 07/11/25 07:45 07/11/25 08:00 Temperature Pulse Rate 70 Respiratory Rate Blood Pressure Pulse Oximetry 96 95 Oxygen Delivery High Flow Therapy with Na High Flow Therapy with Na Oxygen Flow Rate 40 30 Fraction of Inspired Oxygen 63 35 07/11/25 08:00 07/11/25 08:00 07/11/25 08:12 Temperature 99.1 F Pulse Rate 77 71 73 Respiratory Rate 17 Blood Pressure 127/85 Pulse Oximetry 93 Oxygen Delivery Oxygen Flow Rate Fraction of Inspired Oxygen 07/11/25 08:12 07/11/25 08:35 07/11/25 09:40 Temperature 99.2 F Pulse Rate 77 Respiratory Rate 20 Blood Pressure 117/88 Pulse Oximetry 97 92 95 Oxygen Delivery High Flow Therapy with Na High Flow Therapy with Na Oxygen Flow Rate 40 30 Fraction of Inspired Oxygen 46 35 07/11/25 09:56 07/11/25 10:00 07/11/25 10:00 Temperature 99.3 F 99.3 F Pulse Rate 76 72 72 Respiratory Rate 17 15 Blood Pressure 118/93 H 118/93 H Pulse Oximetry 94 94 Oxygen Delivery Oxygen Flow Rate Fraction of Inspired Oxygen 07/11/25 10:12 07/11/25 10:18 07/11/25 10:34 Temperature 99.3 F 99.3 F 99.1 F Pulse Rate 72 77 74 Respiratory Rate 20 19 18 Blood Pressure 121/86 117/67 127/82 Pulse Oximetry 95 95 96 Oxygen Delivery Oxygen Flow Rate Fraction of Inspired Oxygen 07/11/25 10:50 07/11/25 10:53 07/11/25 11:42 Temperature 99.5 F 99.9 F H Pulse Rate 72 Respiratory Rate 18 Blood Pressure 125/84 Pulse Oximetry 95 94 Oxygen Delivery High Flow Therapy with Na Oxygen Flow Rate 30 Fraction of Inspired Oxygen 35 07/11/25 11:59 07/11/25 12:00 07/11/25 12:00 Temperature 100 F H Pulse Rate 67 75 Respiratory Rate 16 Blood Pressure 126/89 Pulse Oximetry 93 93 Oxygen Delivery High Flow Therapy with Na Oxygen Flow Rate 20 Fraction of Inspired Oxygen 30 07/11/25 12:42 07/11/25 13:00 07/11/25 14:00 Temperature 99.6 F 99.8 F H Pulse Rate 76 Respiratory Rate 18 Blood Pressure 123/93 H Pulse Oximetry 96 98 Oxygen Delivery High Flow Therapy with Na Oxygen Flow Rate 20 Fraction of Inspired Oxygen 30 07/11/25 14:00 07/11/25 14:31 07/11/25 14:31 Temperature 102.1 F H Pulse Rate 76 140 H Respiratory Rate Blood Pressure Pulse Oximetry Oxygen Delivery Oxygen Flow Rate Fraction of Inspired Oxygen 07/11/25 14:49 07/11/25 15:31 07/11/25 15:49 Temperature 102.6 F H 102.3 F H 101.9 F H Pulse Rate Respiratory Rate Blood Pressure Pulse Oximetry Oxygen Delivery Oxygen Flow Rate Fraction of Inspired Oxygen 07/11/25 16:00 07/11/25 16:00 07/11/25 16:00 Temperature 101.9 F H Pulse Rate 90 95 Respiratory Rate 12 Blood Pressure 99/74 L Pulse Oximetry 96 96 Oxygen Delivery High Flow Nasal Cannula Oxygen Flow Rate 10 Fraction of Inspired Oxygen 07/11/25 16:49 07/11/25 18:00 07/11/25 18:00 Temperature 100.1 F H Pulse Rate 79 79 Respiratory Rate 19 Blood Pressure 109/77 Pulse Oximetry 98 95 Oxygen Delivery High Flow Nasal Cannula Oxygen Flow Rate 8 Fraction of Inspired Oxygen Intake/Output Intake/Output: Intake & Output 07/08/25 07/09/25 07/10/25 07/11/25 23:59 23:59 23:59 23:59 Intake Total 2901.5 1394 1644 1998 Output Total 1325 2200 3400 3325 Balance 1576.5 -806 -1756 -1327 Meds/Results Medications: Active Medications Generic Name Dose Route Start Last Admin Trade Name Freq PRN Reason Stop Dose Admin Acetaminophen 650 mg 07/06/25 22:57 07/11/25 11:42 Acetaminophen 325 Mg Tablet PO 650 mg Q4H PRN Administration Mild Pain (1-3) or Fever Al Hydrox/Mg Hydrox/Simethicone 30 ml 07/06/25 22:57 Mag Hydrox/Al Hydrox/Simeth 30 Ml Udc PO QID PRN Dyspepsia Artificial Tears 1 drop 07/11/25 09:15 07/11/25 18:39 Artificial Tears Ophth Soln 15 Ml Bottle EACH EYE 1 drop QID PRN Administration Dry Eye(s) Bisacodyl 5 mg 07/06/25 22:57 Bisacodyl 5 Mg Tablet Ec PO DAILY PRN Constipation Dextrose 12.5 gm 07/06/25 23:18 Dextrose 50% 25 Gm/50 Ml Syringe IV PUSH PRN PRN Hypoglycemia Protocol Enoxaparin Sodium 40 mg 07/07/25 09:00 07/08/25 07:47 Enoxaparin 40 Mg/0.4 Ml Syringe SUB-Q Not Given On Hold: 07/08/25 10:03 DAILY XENIA Fluticasone Propionate 1 spray 07/07/25 09:00 07/11/25 08:16 Fluticasone Propionate 0.05% Na Spr 16 Gm Btl (*Bkc) NASAL 1 spray Q12HR XENIA Administration Glucagon 1 mg 07/06/25 23:18 Glucagon For Inj 1 Mg Vial IM PRN PRN Hypoglycemia Protocol Glucose 15 gm 07/06/25 23:18 Glucose Oral Gel 15 Gm Of Glucse In 37.5 Gm Tube PO PRN PRN Hypoglycemia Protocol Dextrose 1,000 mls @ 100 mls/hr 07/06/25 23:18 Dextrose 5% 1,000 Ml IVPB PRN PRN Hypoglycemia Protocol Ibuprofen 400 mg/ Sodium 104 mls @ 208 mls/hr 07/07/25 17:27 07/11/25 15:01 Chloride IVPB Infused Q8H PRN Infusion Pain Rated 4-6 Ampicillin Sodium/Sulbactam 100 mls @ 200 mls/hr 07/11/25 10:30 07/11/25 19:09 Sodium 3 gm/ Sodium Chloride IVPB Infused Q6HR XENIA Infusion Potassium Chloride 100 mls @ 25 mls/hr 07/11/25 16:41 07/11/25 16:51 Kcl 40 Meq/Water 100 Ml IVPB 07/11/25 20:40 25 mls/hr ONCE ONE Administration Albumin Human 250 mls @ 62.5 mls/hr 07/11/25 17:00 07/11/25 16:51 Albumin Human 5% IV CONT 07/11/25 20:59 62.5 mls/hr .Q4H ONE Administration Insulin Aspart 3 - 6 units 07/07/25 08:00 07/11/25 15:58 Insulin Aspart (*Bkc) 100 Units/Ml SUB-Q Not Given TIDWM XENIA Protocol Metoprolol Tartrate 12.5 mg 07/10/25 21:00 07/11/25 08:12 Metoprolol Tartrate 12.5 Mg Tablet PO 12.5 mg Q12HR XENIA Administration Morphine Sulfate 2 mg 07/11/25 12:23 Morphine Sulfate (*Crx) 2 Mg/Ml Inj IV PUSH Q2H PRN Pain Rated 7-10 Morphine Sulfate 4 mg 07/11/25 12:23 07/11/25 13:30 Morphine Sulfate (*Crx) 4 Mg/Ml Inj IV PUSH 4 mg ONCE PRN Administration Preprocedure Ondansetron HCl 4 mg 07/06/25 22:57 07/09/25 13:54 Ondansetron Inj 4 Mg/2 Ml Vial IV PUSH 4 mg Q6H PRN Administration Nausea And Vomiting Sodium Chloride 10 ml 07/07/25 14:00 07/11/25 11:45 Central Line Flush IV PUSH 10 ml Q8HR XENIA Administration Sodium Chloride 20 ml 07/07/25 06:38 Central Line Flush IV PUSH PRN PRN after blood draws Radiology Results: ITS Impressions Upper Quadrant Ultrasound 07/09/25 14:30 IMPRESSION: 1. Normal right upper quadrant ultrasound with no intra or extrahepatic biliary ductal dilation. Chest X-Ray 07/10/25 08:10 IMPRESSION: 1. Unchanged elevation right hemidiaphragm opacity bilateral lower lung zones which could represent atelectasis or pneumonia. Venous Doppler Study 07/10/25 15:15 Impression: Negative for DVT. Chest/Abdomen/Pelvis CT 07/10/25 15:44 IMPRESSION: 1. New groundglass opacities in right lung upper lobe, consistent with pneumonia. 2. Small pleural effusions. 3. Distended gallbladder with gallstone suspicious for acute cholecystitis. 4. Worsened liver mass near the gallbladder, consistent with abscess. Cholecystostomy 07/11/25 14:51 IMPRESSION: 1. Successful ultrasound-guided cholecystostomy tube placement. 2. 20 mL bile was sent for aerobic, anaerobic, and fungal cultures. 3. The catheter will be managed by Dr. Sarabia. A catheter cholangiogram may be performed not less than 48 hours after tube placement if clinically indicated to assess cystic duct patency. If cholecystectomy is not eventually performed and the infectious episode has resolved, the tube may be removed over a guidewire, preferably not less than 3 weeks after placement to allow time for a mature catheter tract to form to prevent bile leakage and peritonitis. Labs Labs: Laboratory Results - last 24 hr 07/10/25 07/11/25 07/11/25 23:06 04:49 07:33 WBC 8.4 RBC 3.73 L Hgb 11.9 L Hct 35.3 L MCV 94.6 MCH 31.9 MCHC 33.7 RDW 14.5 Plt Count 21 L* MPV 12.9 H Immature Gran % (Auto) 1.9 H Neut % (Auto) 79.8 H Lymph % (Auto) 5.7 L [place] % (Auto) 11.2 H Eos % (Auto) 1.0 Baso % (Auto) 0.4 Lymph # (Auto) 0.48 L [place] # (Auto) 0.9 H Eos # (Auto) 0.1 Baso # (Auto) 0.0 Abs Immat Gran (auto) 0.16 H Absolute Neuts (auto) 6.7 Absolute Nucleated RBC 0.000 Band Neutrophils % Not Reportable Nucleated RBC % 0.0 Platelet Estimate Decreased % Immature Plt Fraction 15.0 H Anisocytosis 1+ [place] Cells 2+ Schistocytes None seen PT 14.3 INR 1.1 APTT 28.4 Sodium 140 Potassium 3.2 L Chloride 109 H Carbon Dioxide 27 Anion Gap 4 BUN 39 H Creatinine 0.89 Estim Creat Clear Calc 77 Estimated GFR > 60 Glucose 109 POC Capillary Glucose 131 H 118 H Calcium 7.6 L Phosphorus 2.2 L Magnesium 2.2 Total Bilirubin 0.6 AST 71 H ALT 83 H Alkaline Phosphatase 122 Troponin I Total Protein 5.3 L Albumin 2.6 L Blood Type 07/11/25 07/11/25 07/11/25 08:10 08:33 11:41 WBC RBC Hgb Hct MCV MCH MCHC RDW Plt Count MPV Immature Gran % (Auto) Neut % (Auto) Lymph % (Auto) [place] % (Auto) Eos % (Auto) Baso % (Auto) Lymph # (Auto) [place] # (Auto) Eos # (Auto) Baso # (Auto) Abs Immat Gran (auto) Absolute Neuts (auto) Absolute Nucleated RBC Band Neutrophils % Nucleated RBC % Platelet Estimate % Immature Plt Fraction Anisocytosis [place] Cells Schistocytes PT INR APTT Sodium Potassium Chloride Carbon Dioxide Anion Gap BUN Creatinine Estim Creat Clear Calc Estimated GFR Glucose POC Capillary Glucose 120 H Calcium Phosphorus Magnesium Total Bilirubin AST ALT Alkaline Phosphatase Troponin I 0.036 H* Total Protein Albumin Blood Type A Positive 07/11/25 07/11/25 12:13 15:11 WBC 10.2 H RBC 3.83 L Hgb 12.1 L Hct 35.9 L MCV 93.7 MCH 31.6 MCHC 33.7 RDW 14.6 H Plt Count 56 L D MPV 11.2 H Immature Gran % (Auto) Neut % (Auto) Lymph % (Auto) [place] % (Auto) Eos % (Auto) Baso % (Auto) Lymph # (Auto) [place] # (Auto) Eos # (Auto) Baso # (Auto) Abs Immat Gran (auto) Absolute Neuts (auto) Absolute Nucleated RBC Band Neutrophils % Nucleated RBC % Platelet Estimate % Immature Plt Fraction 8.0 Anisocytosis [place] Cells Schistocytes PT INR APTT Sodium 140 Potassium 3.4 Chloride 108 H Carbon Dioxide 27 Anion Gap 5 BUN 37 H Creatinine 0.84 Estim Creat Clear Calc 81 Estimated GFR > 60 Glucose 135 H POC Capillary Glucose Calcium 7.6 L Phosphorus Magnesium 1.8 Total Bilirubin AST ALT Alkaline Phosphatase Troponin I Total Protein Albumin Blood Type
[2025-07-12] VITALS (19 sets, daily range): BP systolic 101–135; BP diastolic 68–89; PULSE 57–88; RESP 12–20; TEMP 36.7–37.8; O2SAT 79–100
[2025-07-12 04:18] LABS: Hematocrit 33.0 % (42.0-52.0); Hemoglobin 11.0 g/dL (14.0-18.0); Immature Granulocyte Percent A 2.1 % (0-0.5); Immature Platelet Fraction Pct 10.1 % (0.9-11.2); Lymphocytes Absolute Auto 0.60 K/mm3 (0.9-3.2); Mean Corpuscular HGB Conc 33.3 g/dl (32-36); Mean Corpuscular Hemoglobin 31.7 pg (26-34); Mean Corpuscular Volume 95.1 fl (80-100); Nucleated Red Blood Cells Absolute Auto 0.000 K/mm3 (0.0-0.012); Nucleated Red Blood Cells Perc 0.0 % (0.0-0.2); Platelet Count Result 47 k/mm3 (150-375); Red Blood Count 3.47 M/mm3 (4.6-6.20); White Blood Count 8.7 K/mm3 (4.5-10.0)
[2025-07-12 04:39] LABS: Anisocytosis 1+; Schistocytes None Seen
[2025-07-12 04:49] LABS: Alanine Aminotransferase 68 U/L (6-50); Albumin Level 2.6 g/dL (3.5-5.1); Alkaline Phosphatase 102 U/L (38-126); Anion Gap 5 mmol/L (4-12); Aspartate Amino Transferase 61 U/L (17-59); Bilirubin,Total 0.7 mg/dL (0.2-1.3); Blood Urea Nitrogen 35 mg/dL (9-20); Calcium 7.5 mg/dL (8.4-10.2); Carbon Dioxide 28 mmol/L (22-30); Chloride 108 mmol/L (98-107); Estimated CRCL calculation 85 ml/min; Estimated Glomerular Filt Rate > 60; Glucose 80 mg/dL (65-110); Magnesium 2.3 mg/dL (1.6-2.3); Potassium 3.5 mmol/L (3.4-5.0); Sodium 141 mmol/L (137-145); Total Protein 5.1 g/dL (6.3-8.2)
[2025-07-12] MEDS: AMPICILLIN SODIUM/SULBACTAM 3 GM in SODIUM CHLORIDE 0.9% IV 100 ML 200 ML IVPB ×4 (05:08→23:57)
[2025-07-12] MEDS: CENTRAL LINE FLUSH 10 ML IV PUSH ×3 (05:08→20:19)
--- NOTE | 2025-07-12 08:22 | P.PNCA_ITS ---
Progress Note: A&P Assessment and Plan (1) Acute systolic heart failure: Code(s): I50.21 - Acute systolic (congestive) heart failure Status: Acute (2) HLD (hyperlipidemia): Qualifiers: Hyperlipidemia type: mixed hyperlipidemia Qualified Code(s): E78.2 - Mixed hyperlipidemia Code(s): E78.5 - Hyperlipidemia, unspecified Status: Acute (3) HTN (hypertension): Qualifiers: Hypertension type: primary hypertension Qualified Code(s): I10 - Essential (primary) hypertension Code(s): I10 - Essential (primary) hypertension Status: Acute (4) Elevated troponin: Code(s): R79.89 - Other specified abnormal findings of blood chemistry Status: Acute Plan Diagnosis: New onset acute systolic heart failure with LVEF of 25-30% (prior echo from January/2025 showed normal LVEF of 60% and no significant valvular pathology) Elevated troponin most likely secondary to stress of acute illness Family history of CAD on father side Hypertension Hyperlipidemia Paroxysmal AFib status post ablation in 2023 Septic shock- gram-negative bacteremia; pneumonia; acute cholecystitis, liver abscess status post drain placement Thrombocytopenia status post platelet transfusion-platelets [id number] Plan: -Guideline directed medical therapy as blood pressure tolerates. Continue metoprolol 12.5 mg p.o. b.i.d. Add lisinopril 2.5 mg daily add empagliflozin 10 mg daily as tolerated. -Ischemia evaluation with cardiac catheterization after he recovers from his acute illness and completion of antibiotic course -Check and replace electrolytes to keep potassium greater than 4 and magnesium greater than 2 -Management of other medical problems per primary team Subjective Date/time seen: 07/12/25 08:22 Interval history: Reason for encounter: New cardiomyopathy with LVEF of 25% Relevant history: CT abdomen pelvis showed a acute cholecystitis and abscess in the liver. A drain was placed by IR yesterday. Antibiotic was switched to Unasyn. Blood cultures are pending. Patient reports feeling much better this morning. He is sitting up in a chair. No chest pain, dizziness, lightheadedness, heart shortness of breath. Review of Systems Cardiovascular: Comments: As per HPI Respiratory: Comments: As per HPI Exam Narrative: General: Alert oriented x3, no acute distress Neck: Supple, no JVD Chest: Bilaterally clear to auscultation, no rales or rhonchi Cardiac: S1, S2 +, regular rate, regular rhythm, no murmurs or rubs Extremities: No pedal edema, no skin rash Neurologic: Alert and oriented x3, no focal neurological deficits Objective Data Vital Signs Vital Signs: Vital Signs - 24 hr 07/11/25 08:35 07/11/25 09:40 07/11/25 09:56 Temperature 37.3 C 37.4 C Pulse Rate 77 76 Respiratory Rate 20 17 Blood Pressure 117/88 118/93 H Pulse Oximetry 92 95 94 Oxygen Delivery High Flow Therapy with Na Oxygen Flow Rate 30 Fraction of Inspired Oxygen 35 07/11/25 10:00 07/11/25 10:00 07/11/25 10:12 Temperature 37.4 C 37.4 C Pulse Rate 72 72 72 Respiratory Rate 15 20 Blood Pressure 118/93 H 121/86 Pulse Oximetry 94 95 Oxygen Delivery Oxygen Flow Rate Fraction of Inspired Oxygen 07/11/25 10:18 07/11/25 10:34 07/11/25 10:50 Temperature 37.4 C 37.3 C Pulse Rate 77 74 Respiratory Rate 19 18 Blood Pressure 117/67 127/82 Pulse Oximetry 95 96 95 Oxygen Delivery High Flow Therapy with Na Oxygen Flow Rate 30 Fraction of Inspired Oxygen 35 07/11/25 10:53 07/11/25 11:42 07/11/25 11:59 Temperature 37.5 C 37.7 C H Pulse Rate 72 Respiratory Rate 18 Blood Pressure 125/84 Pulse Oximetry 94 93 Oxygen Delivery High Flow Therapy with Na Oxygen Flow Rate 20 Fraction of Inspired Oxygen 30 07/11/25 12:00 07/11/25 12:00 07/11/25 12:42 Temperature 37.7 C H 37.6 C Pulse Rate 67 75 Respiratory Rate 16 Blood Pressure 126/89 Pulse Oximetry 93 Oxygen Delivery Oxygen Flow Rate Fraction of Inspired Oxygen 07/11/25 13:00 07/11/25 14:00 07/11/25 14:00 Temperature 37.7 C H Pulse Rate 76 76 Respiratory Rate 18 Blood Pressure 123/93 H Pulse Oximetry 96 98 Oxygen Delivery High Flow Therapy with Na Oxygen Flow Rate 20 Fraction of Inspired Oxygen 30 07/11/25 14:31 07/11/25 14:31 07/11/25 14:49 Temperature 38.9 C H 39.2 C H Pulse Rate 140 H Respiratory Rate Blood Pressure Pulse Oximetry Oxygen Delivery Oxygen Flow Rate Fraction of Inspired Oxygen 07/11/25 15:31 07/11/25 15:49 07/11/25 16:00 Temperature 39.1 C H 38.8 C H Pulse Rate Respiratory Rate Blood Pressure Pulse Oximetry 96 Oxygen Delivery High Flow Nasal Cannula Oxygen Flow Rate 10 Fraction of Inspired Oxygen 07/11/25 16:00 07/11/25 16:00 07/11/25 16:49 Temperature 38.8 C H Pulse Rate 90 95 Respiratory Rate 12 Blood Pressure 99/74 L Pulse Oximetry 96 98 Oxygen Delivery High Flow Nasal Cannula Oxygen Flow Rate 8 Fraction of Inspired Oxygen 07/11/25 18:00 07/11/25 18:00 07/11/25 20:00 Temperature 37.8 C H Pulse Rate 79 79 Respiratory Rate 19 Blood Pressure 109/77 Pulse Oximetry 95 95 Oxygen Delivery High Flow Nasal Cannula Oxygen Flow Rate 5 Fraction of Inspired Oxygen 07/11/25 20:00 07/11/25 20:00 07/11/25 20:03 Temperature 37.3 C Pulse Rate 76 79 78 Respiratory Rate 17 Blood Pressure 103/75 Pulse Oximetry 96 Oxygen Delivery Oxygen Flow Rate Fraction of Inspired Oxygen 07/11/25 20:24 07/11/25 22:00 07/11/25 22:00 Temperature 37.0 C Pulse Rate 71 67 67 Respiratory Rate 20 14 Blood Pressure 97/66 L Pulse Oximetry 96 96 Oxygen Delivery High Flow Nasal Cannula Oxygen Flow Rate 5 Fraction of Inspired Oxygen 40 07/12/25 00:00 07/12/25 00:00 07/12/25 00:00 Temperature 36.7 C Pulse Rate 59 L 59 L Respiratory Rate 14 Blood Pressure 101/71 Pulse Oximetry 96 96 Oxygen Delivery High Flow Nasal Cannula Oxygen Flow Rate 5 Fraction of Inspired Oxygen 07/12/25 02:00 07/12/25 02:00 07/12/25 04:00 Temperature 36.7 C 36.7 C Pulse Rate 60 60 59 L Respiratory Rate 12 14 Blood Pressure 120/78 114/73 Pulse Oximetry 100 96 Oxygen Delivery Oxygen Flow Rate Fraction of Inspired Oxygen 07/12/25 04:00 07/12/25 04:00 07/12/25 05:40 Temperature Pulse Rate 60 62 Respiratory Rate 20 Blood Pressure Pulse Oximetry 95 96 Oxygen Delivery Nasal Cannula Nasal Cannula Oxygen Flow Rate 3 3 Fraction of Inspired Oxygen 32 07/12/25 06:00 07/12/25 06:00 Temperature 37.0 C Pulse Rate 60 60 Respiratory Rate 16 Blood Pressure 123/68 Pulse Oximetry 95 Oxygen Delivery Oxygen Flow Rate Fraction of Inspired Oxygen Intake/Output Intake/Output: Intake & Output 07/09/25 07/10/25 07/11/25 07/12/25 23:59 23:59 23:59 23:59 Intake Total 1394 1644 2448 400 Output Total 2200 3400 332 950 Balance -936 -1756 -877 -550 Meds/Results Medications: Active Medications Generic Name Dose Route Start Last Admin Trade Name Freq PRN Reason Stop Dose Admin Acetaminophen 650 mg 07/06/25 22:57 07/11/25 11:42 Acetaminophen 325 Mg Tablet PO 650 mg Q4H PRN Administration Mild Pain (1-3) or Fever Al Hydrox/Mg Hydrox/Simethicone 30 ml 07/06/25 22:57 Mag Hydrox/Al Hydrox/Simeth 30 Ml Udc PO QID PRN Dyspepsia Artificial Tears 1 drop 07/11/25 09:15 07/11/25 18:39 Artificial Tears Ophth Soln 15 Ml Bottle EACH EYE 1 drop QID PRN Administration Dry Eye(s) Bisacodyl 5 mg 07/06/25 22:57 Bisacodyl 5 Mg Tablet Ec PO DAILY PRN Constipation Bisacodyl 10 mg 07/12/25 07:55 Bisacodyl 10 Mg Suppository RECTAL QAM PRN Constipation Dextrose 12.5 gm 07/06/25 23:18 Dextrose 50% 25 Gm/50 Ml Syringe IV PUSH PRN PRN Hypoglycemia Protocol Enoxaparin Sodium 40 mg 07/07/25 09:00 07/08/25 07:47 Enoxaparin 40 Mg/0.4 Ml Syringe SUB-Q Not Given On Hold: 07/08/25 10:03 DAILY XENIA Fluticasone Propionate 1 spray 07/07/25 09:00 07/11/25 20:04 Fluticasone Propionate 0.05% Na Spr 16 Gm Btl (*Bkc) NASAL 1 spray Q12HR XENIA Administration Glucagon 1 mg 07/06/25 23:18 Glucagon For Inj 1 Mg Vial IM PRN PRN Hypoglycemia Protocol Glucose 15 gm 07/06/25 23:18 Glucose Oral Gel 15 Gm Of Glucse In 37.5 Gm Tube PO PRN PRN Hypoglycemia Protocol Dextrose 1,000 mls @ 100 mls/hr 07/06/25 23:18 Dextrose 5% 1,000 Ml IVPB PRN PRN Hypoglycemia Protocol Ibuprofen 400 mg/ Sodium 104 mls @ 208 mls/hr 07/07/25 17:27 07/11/25 15:01 Chloride IVPB Infused Q8H PRN Infusion Pain Rated 4-6 Ampicillin Sodium/Sulbactam 100 mls @ 200 mls/hr 07/11/25 10:30 07/12/25 05:38 Sodium 3 gm/ Sodium Chloride IVPB Infused Q6HR XENIA Infusion Calcium Gluconate 2,000 mg in 100 mls @ 100 mls/hr 07/12/25 07:50 Calcium Gluc 2,000 Mg/Ns 100ml IVPB 07/12/25 08:49 ONCE ONE Insulin Aspart 3 - 6 units 07/07/25 08:00 07/11/25 15:58 Insulin Aspart (*Bkc) 100 Units/Ml SUB-Q Not Given [facility] Protocol Metoprolol Tartrate 12.5 mg 07/10/25 21:00 07/11/25 20:03 Metoprolol Tartrate 12.5 Mg Tablet PO 12.5 mg Q12HR XENIA Administration Morphine Sulfate 2 mg 07/11/25 12:23 Morphine Sulfate (*Crx) 2 Mg/Ml Inj IV PUSH Q2H PRN Pain Rated 7-10 Morphine Sulfate 4 mg 07/11/25 12:23 07/11/25 13:30 Morphine Sulfate (*Crx) 4 Mg/Ml Inj IV PUSH 4 mg ONCE PRN Administration Preprocedure Ondansetron HCl 4 mg 07/06/25 22:57 07/09/25 13:54 Ondansetron Inj 4 Mg/2 Ml Vial IV PUSH 4 mg Q6H PRN Administration Nausea And Vomiting Pantoprazole Sodium 40 mg 07/12/25 09:00 Pantoprazole Sodium Iv 40 Mg Vial IV PUSH QAM XENIA Polyethylene Glycol 17 gm 07/12/25 09:00 Polyethylene Glycol 3350 17 Gm Powd.Pack PO QAM XENIA Sodium Chloride 10 ml 07/07/25 14:00 07/12/25 05:08 Central Line Flush IV PUSH 10 ml Q8HR XENIA Administration Sodium Chloride 20 ml 07/07/25 06:38 Central Line Flush IV PUSH PRN PRN after blood draws Radiology Results: ITS Impressions Upper Quadrant Ultrasound 07/09/25 14:30 IMPRESSION: 1. Normal right upper quadrant ultrasound with no intra or extrahepatic biliary ductal dilation. Chest X-Ray 07/10/25 08:10 IMPRESSION: 1. Unchanged elevation right hemidiaphragm opacity bilateral lower lung zones which could represent atelectasis or pneumonia. Venous Doppler Study 07/10/25 15:15 Impression: Negative for DVT. Chest/Abdomen/Pelvis CT 07/10/25 15:44 IMPRESSION: 1. New groundglass opacities in right lung upper lobe, consistent with pneumonia. 2. Small pleural effusions. 3. Distended gallbladder with gallstone suspicious for acute cholecystitis. 4. Worsened liver mass near the gallbladder, consistent with abscess. Cholecystostomy 07/11/25 14:51 IMPRESSION: 1. Successful ultrasound-guided cholecystostomy tube placement. 2. 20 mL bile was sent for aerobic, anaerobic, and fungal cultures. 3. The catheter will be managed by Dr. Sarabia. A catheter cholangiogram may be performed not less than 48 hours after tube placement if clinically indicated to assess cystic duct patency. If cholecystectomy is not eventually performed and the infectious episode has resolved, the tube may be removed over a guidewire, preferably not less than 3 weeks after placement to allow time for a mature catheter tract to form to prevent bile leakage and peritonitis. Labs Labs: Laboratory Results - last 24 hr 07/11/25 07/11/25 07/11/25 08:10 08:33 11:41 WBC RBC Hgb Hct MCV MCH MCHC RDW Plt Count MPV Immature Gran % (Auto) Neut % (Auto) Lymph % (Auto) [place] % (Auto) Eos % (Auto) Baso % (Auto) Lymph # (Auto) [place] # (Auto) Eos # (Auto) Baso # (Auto) Abs Immat Gran (auto) Absolute Neuts (auto) Absolute Nucleated RBC Band Neutrophils % Nucleated RBC % Platelet Estimate % Immature Plt Fraction Anisocytosis Schistocytes Sodium Potassium Chloride Carbon Dioxide Anion Gap BUN Creatinine Estim Creat Clear Calc Estimated GFR Glucose POC Capillary Glucose 120 H Calcium Phosphorus Magnesium Total Bilirubin AST ALT Alkaline Phosphatase Troponin I 0.036 H* Total Protein Albumin Blood Type A Positive 07/11/25 07/11/25 07/11/25 12:13 15:11 20:30 WBC 10.2 H RBC 3.83 L Hgb 12.1 L Hct 35.9 L MCV 93.7 MCH 31.6 MCHC 33.7 RDW 14.6 H Plt Count 56 L D MPV 11.2 H Immature Gran % (Auto) Neut % (Auto) Lymph % (Auto) [place] % (Auto) Eos % (Auto) Baso % (Auto) Lymph # (Auto) [place] # (Auto) Eos # (Auto) Baso # (Auto) Abs Immat Gran (auto) Absolute Neuts (auto) Absolute Nucleated RBC Band Neutrophils % Nucleated RBC % Platelet Estimate % Immature Plt Fraction 8.0 Anisocytosis Schistocytes Sodium 140 Potassium 3.4 Chloride 108 H Carbon Dioxide 27 Anion Gap 5 BUN 37 H Creatinine 0.84 Estim Creat Clear Calc 81 Estimated GFR > 60 Glucose 135 H POC Capillary Glucose 215 H Calcium 7.6 L Phosphorus Magnesium 1.8 Total Bilirubin AST ALT Alkaline Phosphatase Troponin I Total Protein Albumin Blood Type 07/12/25 04:12 WBC 8.7 RBC 3.47 L Hgb 11.0 L Hct 33.0 L MCV 95.1 MCH 31.7 MCHC 33.3 RDW 14.6 H Plt Count 47 L MPV 11.3 H Immature Gran % (Auto) 2.1 H Neut % (Auto) 77.9 H Lymph % (Auto) 6.9 L [place] % (Auto) 11.4 H Eos % (Auto) 1.2 Baso % (Auto) 0.5 Lymph # (Auto) 0.60 L [place] # (Auto) 1.0 H Eos # (Auto) 0.1 Baso # (Auto) 0.0 Abs Immat Gran (auto) 0.18 H Absolute Neuts (auto) 6.8 H Absolute Nucleated RBC 0.000 Band Neutrophils % Not Reportable Nucleated RBC % 0.0 Platelet Estimate Decreased % Immature Plt Fraction 10.1 Anisocytosis 1+ Schistocytes None seen Sodium 141 Potassium 3.5 Chloride 108 H Carbon Dioxide 28 Anion Gap 5 BUN 35 H Creatinine 0.80 Estim Creat Clear Calc 85 Estimated GFR > 60 Glucose 80 POC Capillary Glucose Calcium 7.5 L Phosphorus 2.5 Magnesium 2.3 Total Bilirubin 0.7 AST 61 H ALT 68 H Alkaline Phosphatase 102 Troponin I Total Protein 5.1 L Albumin 2.6 L Blood Type
--- NOTE | 2025-07-12 08:55 | P.PNINT_ITS ---
Progress Note: A&P Assessment and Plan (1) Septic shock: Code(s): A41.9 - Sepsis, unspecified organism; R65.21 - Severe sepsis with septic shock Status: Acute Assessment and Plan: Patient presented to the outside hospital in [facility] with complains of shortness of breath, abdominal bloating. -CTA chest abdomen and pelvis showed no pulmonary embolism, cholelithiasis with possible acute cholecystitis -ultrasound of right upper quadrant was negative for cholecystitis -UA suggestive of UTI and CT scan was negative for any kidney stones -blood cultures at outside hospital grew E coli [facility] grew Bacteroides. Identification is pending Due to persistent fevers and repeat cultures being positive after decisions Infectious Disease I repeated CT scan of chest abdomen pelvis 07/10 CT scan showed IMPRESSION: 1. New groundglass opacities in right lung upper lobe, consistent with pneumonia. 2. Small pleural effusions. 3. Distended gallbladder with gallstone suspicious for acute cholecystitis. 4. Worsened liver mass near the gallbladder, consistent with abscess. Lower extremity Dopplers are negative for DVT General surgery was consulted and after discussion with General surgery, we requested IR for a ultrasound-guided abscess drainage and cholecystostomy tube placement 07/12 patient underwent cholecystostomy drain placement. Ultrasound at that time confirmed findings of acute cholecystitis with distended gallbladder full of stones. Fluid was sent for cultures The liver abscess was small and not easily accessible with needle hence no intervention was done Patient now is clinically doing better with improvement of tachycardia fevers and normalization of WBC Continue the drainage and IV Unasyn Hold diuretics Clear liquid diet advance as per General surgery Infectious disease and General surgery are following following (2) Right lower lobe pneumonia: Qualifiers: Pneumonia type: due to unspecified organism Qualified Code(s): J18.9 - Pneumonia, unspecified organism Code(s): J18.9 - Pneumonia, unspecified organism Status: Acute Assessment and Plan: Continue antibiotics as above, supplemental oxygen via high-flow therapy -respiratory panel will has been ordered and negative Add incentive spirometry Patient down to 2 L nasal cannula. Hold further Lasix (3) Abnormal computed tomography of gallbladder: Code(s): R93.2 - Abnormal findings on diagnostic imaging of liver and biliary tract Status: Acute Assessment and Plan: See above (4) Congestive heart failure: Code(s): I50.9 - Heart failure, unspecified Status: Acute Assessment and Plan: Chest x-ray shows diffuse bilateral infiltrates. Patient had elevated BNP on presentation Echocardiogram shows EF of 25-30% Patient received Lasix for last couple days. Will hold today (5) Thrombocytopenia: Code(s): D69.6 - Thrombocytopenia, unspecified Status: Acute Assessment and Plan: Multifactorial thrombocytopenia likely secondary to sepsis. I will transfuse 2 units of platelets in anticipation of invasive procedure. Lovenox some and patient is on SCDs 07/11 patient was given 2 units platelets for cholecystostomy placement Monitor (6) Electrolyte abnormality: Code(s): E87.8 - Other disorders of electrolyte and fluid balance, not elsewhere classified Status: Acute Assessment and Plan: Potassium and calcium replacement ordered Plan DVT prophylaxis: Lovenox is on hold due to thrombocytopenia, SCDs Stress ulcer prophylaxis: Ppi Nutrition: Clear liquid diet. Advance as per General surgery Code Status: Full code IS and Up in chair Discussed with patient and his spouse at bedside and updated them with patient's condition and plan of care. I answered all questions Critical Care Time Spent: 30 minutes Due to a high probability of clinically significant, life threatening deterioration, the patient required my highest level of preparedness to intervene emergently and I personally spent this critical care time directly and personally managing the patient. This critical care time included obtaining a history; examining the patient; pulse oximetry; ordering and review of studies; arranging urgent treatment with development of a management plan; evaluation of patient's response to treatment; frequent reassessment; and discussions with other providers. It was exclusive of separately billable procedures and treating other patients and teaching time. Please see Assessment and Plan section and the rest of the note for further information on patient assessment and treatment This dictation may have been done utilizing a voice recognition system. Attempts have been made to correct errors. However, there may be uncorrected grammatical, spelling, and recognitions errors present. Subjective Date/time seen: 07/12/25 Overnight events reviewed. Afebrile overnight On 2 L nasal cannula Not on any continuous infusion His tachycardia has improved blood pressure has stabilized. He is on clear liquid diet He states he feels markedly better yesterday after placement of drain. He slept well and denies any complaints. He states he has some pain at the site of catheter insertion with deep breathing and movement but no pain at rest. Patient denies fever, chest pain, shortness of breath, cough, nausea vomiting, abdominal pain,, diarrhea, headache. Review of system is positive for constipation but he feels he may be having a bowel movement soon. He also complains of belching and gas. All other systems were reviewed and were negative.. Approximately 525 mL out of cholecystostomy drain Interval history: Reason for consult: Septic shock shortness on breath, pneumonia, abdominal bloating, gram negative bacteremia 07/11 cholecystostomy by IR Review of Systems Review of Systems: All systems reviewed & are unremarkable except as noted in HPI and below Exam Narrative: General: Pleasant gentleman in no acute distress HEENT:? Pupils equal reactive, sclerae is clear, moist oral mucosa Neck:? Supple Respiratory:? Coarse breath sounds bilaterally, decreased at bases, no wheezing, no significant crackles Cardiac:? S1-S2 normal, regular rate and rhythm Abdomen:? Soft, nontender, nondistended with normoactive bowel sounds, cholecystostomy drain in the right upper quadrant with dark liquid output Extremities:? No significant edema Neuro:? Patient awake, alert, oriented x3, nonfocal, answers to questions a ppropriately and follows simple commands in all extremities Skin:? Warm and dry, no skin lesions noted Psych:? Normal mentation and affect Objective Data Vital Signs Vital Signs: Vital Signs - 24 hr 07/11/25 09:40 07/11/25 09:56 07/11/25 10:00 Temperature 37.3 C 37.4 C Pulse Rate 77 76 72 Respiratory Rate 20 17 Blood Pressure 117/88 118/93 H Pulse Oximetry 95 94 Oxygen Delivery Oxygen Flow Rate Fraction of Inspired Oxygen 07/11/25 10:00 07/11/25 10:12 07/11/25 10:18 Temperature 37.4 C 37.4 C 37.4 C Pulse Rate 72 72 77 Respiratory Rate 15 20 19 Blood Pressure 118/93 H 121/86 117/67 Pulse Oximetry 94 95 95 Oxygen Delivery Oxygen Flow Rate Fraction of Inspired Oxygen 07/11/25 10:34 07/11/25 10:50 07/11/25 10:53 Temperature 37.3 C 37.5 C Pulse Rate 74 72 Respiratory Rate 18 18 Blood Pressure 127/82 125/84 Pulse Oximetry 96 95 94 Oxygen Delivery High Flow Therapy with Na Oxygen Flow Rate 30 Fraction of Inspired Oxygen 35 07/11/25 11:42 07/11/25 11:59 07/11/25 12:00 Temperature 37.7 C H Pulse Rate 67 Respiratory Rate Blood Pressure Pulse Oximetry 93 Oxygen Delivery High Flow Therapy with Na Oxygen Flow Rate 20 Fraction of Inspired Oxygen 30 07/11/25 12:00 07/11/25 12:42 07/11/25 13:00 Temperature 37.7 C H 37.6 C Pulse Rate 75 Respiratory Rate 16 Blood Pressure 126/89 Pulse Oximetry 93 96 Oxygen Delivery High Flow Therapy with Na Oxygen Flow Rate 20 Fraction of Inspired Oxygen 30 07/11/25 14:00 07/11/25 14:00 07/11/25 14:31 Temperature 37.7 C H Pulse Rate 76 76 140 H Respiratory Rate 18 Blood Pressure 123/93 H Pulse Oximetry 98 Oxygen Delivery Oxygen Flow Rate Fraction of Inspired Oxygen 07/11/25 14:31 07/11/25 14:49 07/11/25 15:31 Temperature 38.9 C H 39.2 C H 39.1 C H Pulse Rate Respiratory Rate Blood Pressure Pulse Oximetry Oxygen Delivery Oxygen Flow Rate Fraction of Inspired Oxygen 07/11/25 15:49 07/11/25 16:00 07/11/25 16:00 Temperature 38.8 C H Pulse Rate 90 Respiratory Rate Blood Pressure Pulse Oximetry 96 Oxygen Delivery High Flow Nasal Cannula Oxygen Flow Rate 10 Fraction of Inspired Oxygen 07/11/25 16:00 07/11/25 16:49 07/11/25 18:00 Temperature 38.8 C H Pulse Rate 95 79 Respiratory Rate 12 Blood Pressure 99/74 L Pulse Oximetry 96 98 Oxygen Delivery High Flow Nasal Cannula Oxygen Flow Rate 8 Fraction of Inspired Oxygen 07/11/25 18:00 07/11/25 20:00 07/11/25 20:00 Temperature 37.8 C H 37.3 C Pulse Rate 79 76 Respiratory Rate 19 17 Blood Pressure 109/77 103/75 Pulse Oximetry 95 95 96 Oxygen Delivery High Flow Nasal Cannula Oxygen Flow Rate 5 Fraction of Inspired Oxygen 07/11/25 20:00 07/11/25 20:03 07/11/25 20:24 Temperature Pulse Rate 79 78 71 Respiratory Rate 20 Blood Pressure Pulse Oximetry 96 Oxygen Delivery High Flow Nasal Cannula Oxygen Flow Rate 5 Fraction of Inspired Oxygen 40 07/11/25 22:00 07/11/25 22:00 07/12/25 00:00 Temperature 37.0 C Pulse Rate 67 67 Respiratory Rate 14 Blood Pressure 97/66 L Pulse Oximetry 96 96 Oxygen Delivery High Flow Nasal Cannula Oxygen Flow Rate 5 Fraction of Inspired Oxygen 07/12/25 00:00 07/12/25 00:00 07/12/25 02:00 Temperature 36.7 C 36.7 C Pulse Rate 59 L 59 L 60 Respiratory Rate 14 12 Blood Pressure 101/71 120/78 Pulse Oximetry 96 100 Oxygen Delivery Oxygen Flow Rate Fraction of Inspired Oxygen 07/12/25 02:00 07/12/25 04:00 07/12/25 04:00 Temperature 36.7 C Pulse Rate 60 59 L Respiratory Rate 14 Blood Pressure 114/73 Pulse Oximetry 96 95 Oxygen Delivery Nasal Cannula Oxygen Flow Rate 3 Fraction of Inspired Oxygen 07/12/25 04:00 07/12/25 05:40 07/12/25 06:00 Temperature Pulse Rate 60 62 60 Respiratory Rate 20 Blood Pressure Pulse Oximetry 96 Oxygen Delivery Nasal Cannula Oxygen Flow Rate 3 Fraction of Inspired Oxygen 32 07/12/25 06:00 Temperature 37.0 C Pulse Rate 60 Respiratory Rate 16 Blood Pressure 123/68 Pulse Oximetry 95 Oxygen Delivery Oxygen Flow Rate Fraction of Inspired Oxygen Intake/Output Intake/Output: Intake & Output 07/09/25 07/10/25 07/11/25 07/12/25 23:59 23:59 23:59 23:59 Intake Total 1394 1644 2448 400 Output Total 2200 3400 3323 950 [facility] [phone] Meds/Results Medications: Active Medications Generic Name Dose Route Start Last Admin Trade Name Freq PRN Reason Stop Dose Admin Acetaminophen 650 mg 07/06/25 22:57 07/11/25 11:42 Acetaminophen 325 Mg Tablet PO 650 mg Q4H PRN Administration Mild Pain (1-3) or Fever Al Hydrox/Mg Hydrox/Simethicone 30 ml 07/06/25 22:57 Mag Hydrox/Al Hydrox/Simeth 30 Ml Udc PO QID PRN Dyspepsia Artificial Tears 1 drop 07/11/25 09:15 07/11/25 18:39 Artificial Tears Ophth Soln 15 Ml Bottle EACH EYE 1 drop QID PRN Administration Dry Eye(s) Bisacodyl 5 mg 07/06/25 22:57 Bisacodyl 5 Mg Tablet Ec PO DAILY PRN Constipation Bisacodyl 10 mg 07/12/25 07:55 Bisacodyl 10 Mg Suppository RECTAL QAM PRN Constipation Dextrose 12.5 gm 07/06/25 23:18 Dextrose 50% 25 Gm/50 Ml Syringe IV PUSH PRN PRN Hypoglycemia Protocol Enoxaparin Sodium 40 mg 07/07/25 09:00 07/08/25 07:47 Enoxaparin 40 Mg/0.4 Ml Syringe SUB-Q Not Given On Hold: 07/08/25 10:03 DAILY XENIA Fluticasone Propionate 1 spray 07/07/25 09:00 07/11/25 20:04 Fluticasone Propionate 0.05% Na Spr 16 Gm Btl (*Bkc) NASAL 1 spray Q12HR XENIA Administration Glucagon 1 mg 07/06/25 23:18 Glucagon For Inj 1 Mg Vial IM PRN PRN Hypoglycemia Protocol Glucose 15 gm 07/06/25 23:18 Glucose Oral Gel 15 Gm Of Glucse In 37.5 Gm Tube PO PRN PRN Hypoglycemia Protocol Dextrose 1,000 mls @ 100 mls/hr 07/06/25 23:18 Dextrose 5% 1,000 Ml IVPB PRN PRN Hypoglycemia Protocol Ibuprofen 400 mg/ Sodium 104 mls @ 208 mls/hr 07/07/25 17:27 07/11/25 15:01 Chloride IVPB Infused Q8H PRN Infusion Pain Rated 4-6 Ampicillin Sodium/Sulbactam 100 mls @ 200 mls/hr 07/11/25 10:30 07/12/25 05:38 Sodium 3 gm/ Sodium Chloride IVPB Infused Q6HR XENIA Infusion Insulin Aspart 3 - 6 units 07/07/25 08:00 07/11/25 15:58 Insulin Aspart (*Bkc) 100 Units/Ml SUB-Q Not Given TIDWM [facility] Protocol Metoprolol Tartrate 12.5 mg 07/10/25 21:00 07/11/25 20:03 Metoprolol Tartrate 12.5 Mg Tablet PO 12.5 mg Q12HR XENIA Administration Morphine Sulfate 2 mg 07/11/25 12:23 Morphine Sulfate (*Crx) 2 Mg/Ml Inj IV PUSH Q2H PRN Pain Rated 7-10 Morphine Sulfate 4 mg 07/11/25 12:23 07/11/25 13:30 Morphine Sulfate (*Crx) 4 Mg/Ml Inj IV PUSH 4 mg ONCE PRN Administration Preprocedure Ondansetron HCl 4 mg 07/06/25 22:57 07/09/25 13:54 Ondansetron Inj 4 Mg/2 Ml Vial IV PUSH 4 mg Q6H PRN Administration Nausea And Vomiting Pantoprazole Sodium 40 mg 07/12/25 09:00 Pantoprazole Sodium Iv 40 Mg Vial IV PUSH QAM XENIA Polyethylene Glycol 17 gm 07/12/25 09:00 Polyethylene Glycol 3350 17 Gm Powd.Pack PO QAM XENIA Sodium Chloride 10 ml 07/07/25 14:00 07/12/25 05:08 Central Line Flush IV PUSH 10 ml Q8HR XENIA Administration Sodium Chloride 20 ml 07/07/25 06:38 Central Line Flush IV PUSH PRN PRN after blood draws Radiology Results: ITS Impressions Upper Quadrant Ultrasound 07/09/25 14:30 IMPRESSION: 1. Normal right upper quadrant ultrasound with no intra or extrahepatic biliary ductal dilation. Chest X-Ray 07/10/25 08:10 IMPRESSION: 1. Unchanged elevation right hemidiaphragm opacity bilateral lower lung zones which could represent atelectasis or pneumonia. Venous Doppler Study 07/10/25 15:15 Impression: Negative for DVT. Chest/Abdomen/Pelvis CT 07/10/25 15:44 IMPRESSION: 1. New groundglass opacities in right lung upper lobe, consistent with pneumonia. 2. Small pleural effusions. 3. Distended gallbladder with gallstone suspicious for acute cholecystitis. 4. Worsened liver mass near the gallbladder, consistent with abscess. Cholecystostomy 07/11/25 14:51 IMPRESSION: 1. Successful ultrasound-guided cholecystostomy tube placement. 2. 20 mL bile was sent for aerobic, anaerobic, and fungal cultures. 3. The catheter will be managed by Dr. Sarabia. A catheter cholangiogram may be performed not less than 48 hours after tube placement if clinically indicated to assess cystic duct patency. If cholecystectomy is not eventually performed and the infectious episode has resolved, the tube may be removed over a guidewire, preferably not less than 3 weeks after placement to allow time for a mature catheter tract to form to prevent bile leakage and peritonitis. Labs Labs: Laboratory Results - last 24 hr 07/11/25 07/11/25 07/11/25 08:10 08:33 11:41 WBC RBC Hgb Hct MCV MCH MCHC RDW Plt Count MPV Immature Gran % (Auto) Neut % (Auto) Lymph % (Auto) [place] % (Auto) Eos % (Auto) Baso % (Auto) Lymph # (Auto) [place] # (Auto) Eos # (Auto) Baso # (Auto) Abs Immat Gran (auto) Absolute Neuts (auto) Absolute Nucleated RBC Band Neutrophils % Nucleated RBC % Platelet Estimate % Immature Plt Fraction Anisocytosis Schistocytes Sodium Potassium Chloride Carbon Dioxide Anion Gap BUN Creatinine Estim Creat Clear Calc Estimated GFR Glucose POC Capillary Glucose 120 H Calcium Phosphorus Magnesium Total Bilirubin AST ALT Alkaline Phosphatase Troponin I 0.036 H* Total Protein Albumin Blood Type A Positive 07/11/25 07/11/25 07/11/25 12:13 15:11 20:30 WBC 10.2 H RBC 3.83 L Hgb 12.1 L Hct 35.9 L MCV 93.7 MCH 31.6 MCHC 33.7 RDW 14.6 H Plt Count 56 L D MPV 11.2 H Immature Gran % (Auto) Neut % (Auto) Lymph % (Auto) [place] % (Auto) Eos % (Auto) Baso % (Auto) Lymph # (Auto) [place] # (Auto) Eos # (Auto) Baso # (Auto) Abs Immat Gran (auto) Absolute Neuts (auto) Absolute Nucleated RBC Band Neutrophils % Nucleated RBC % Platelet Estimate % Immature Plt Fraction 8.0 Anisocytosis Schistocytes Sodium 140 Potassium 3.4 Chloride 108 H Carbon Dioxide 27 Anion Gap 5 BUN 37 H Creatinine 0.84 Estim Creat Clear Calc 81 Estimated GFR > 60 Glucose 135 H POC Capillary Glucose 215 H Calcium 7.6 L Phosphorus Magnesium 1.8 Total Bilirubin AST ALT Alkaline Phosphatase Troponin I Total Protein Albumin Blood Type 07/12/25 07/12/25 04:12 08:43 WBC 8.7 RBC 3.47 L Hgb 11.0 L Hct 33.0 L MCV 95.1 MCH 31.7 MCHC 33.3 RDW 14.6 H Plt Count 47 L MPV 11.3 H Immature Gran % (Auto) 2.1 H Neut % (Auto) 77.9 H Lymph % (Auto) 6.9 L [place] % (Auto) 11.4 H Eos % (Auto) 1.2 Baso % (Auto) 0.5 Lymph # (Auto) 0.60 L [place] # (Auto) 1.0 H Eos # (Auto) 0.1 Baso # (Auto) 0.0 Abs Immat Gran (auto) 0.18 H Absolute Neuts (auto) 6.8 H Absolute Nucleated RBC 0.000 Band Neutrophils % Not Reportable Nucleated RBC % 0.0 Platelet Estimate Decreased % Immature Plt Fraction 10.1 Anisocytosis 1+ Schistocytes None seen Sodium 141 Potassium 3.5 Chloride 108 H Carbon Dioxide 28 Anion Gap 5 BUN 35 H Creatinine 0.80 Estim Creat Clear Calc 85 Estimated GFR > 60 Glucose 80 POC Capillary Glucose 122 H Calcium 7.5 L Phosphorus 2.5 Magnesium 2.3 Total Bilirubin 0.7 AST 61 H ALT 68 H Alkaline Phosphatase 102 Troponin I Total Protein 5.1 L Albumin 2.6 L Blood Type Quality VTE Prophylaxis VTE prophylaxis: mechanical ordered
[2025-07-12] MEDS: METOPROLOL TARTRATE 12.5 MG TABLET PO ×2 (09:05→20:18)
[2025-07-12] MEDS: POTASSIUM BICARBONATE 25 MEQ TABEF 50 MEQ PO (09:05)
[2025-07-12] MEDS: PANTOPRAZOLE SODIUM IV 40 MG VIAL IV PUSH (09:05)
[2025-07-12] MEDS: FLUTICASONE PROPIONATE 0.05% NA SPR 16 GM BTL (*BKC) 1 SPRAY NASAL ×2 (09:06→20:19)
[2025-07-12] MEDS: CALCIUM GLUC 2,000 MG/NS 100ML 2,000 MG/100 ML BAG 100 MG IVPB (09:09)
--- NOTE | 2025-07-12 10:01 | PM.PNGS ---
Progress Note: A&P Assessment and Plan (1) Acute calculous cholecystitis: Code(s): K80.00 - Calculus of gallbladder with acute cholecystitis without obstruction Status: Acute Assessment and Plan: exam much improved, feeling much better and tolerating clear liquid diet, continue cholecystostomy tube and IV antibiotics, will advance to low-fat diet (2) Liver abscess: Code(s): K75.0 - Abscess of liver Status: Acute Assessment and Plan: continue IV antibiotics (3) Septic shock: Code(s): A41.9 - Sepsis, unspecified organism; R65.21 - Severe sepsis with septic shock Status: Acute Assessment and Plan: resolved, off all pressors at this point, continue IV antibiotics and drain Subjective Subjective Date/Time Seen: 07/12/25 10:01 Interval history: feels much better today, minimal abd discomfort/bloating, emily clears, perc alethea placed yest Review of Systems Review of Systems: All systems reviewed & are unremarkable except as noted in HPI and below Exam Const: General: cooperative, comfortable and no acute distress Resp: Auscultation: diminished lung sounds Cardio: Rate: regular rate Rhythm: regular rhythm GI: Inspection: normal to inspection and distended GI Palp: Yes abdominal tenderness and Yes Soft to palpation Other: Perc cholecystostomy tube with bilious drainage Objective Data Vital Signs Vital Signs: Vital Signs - 24 hr 07/11/25 10:12 07/11/25 10:18 07/11/25 10:34 Temperature 37.4 C 37.4 C 37.3 C Pulse Rate 72 77 74 Respiratory Rate 20 19 18 Blood Pressure 121/86 117/67 127/82 Pulse Oximetry 95 95 96 Oxygen Delivery Oxygen Flow Rate Fraction of Inspired Oxygen 07/11/25 10:50 07/11/25 10:53 07/11/25 11:42 Temperature 37.5 C 37.7 C H Pulse Rate 72 Respiratory Rate 18 Blood Pressure 125/84 Pulse Oximetry 95 94 Oxygen Delivery High Flow Therapy with Na Oxygen Flow Rate 30 Fraction of Inspired Oxygen 35 07/11/25 11:59 07/11/25 12:00 07/11/25 12:00 Temperature 37.7 C H Pulse Rate 67 75 Respiratory Rate 16 Blood Pressure 126/89 Pulse Oximetry 93 93 Oxygen Delivery High Flow Therapy with Na Oxygen Flow Rate 20 Fraction of Inspired Oxygen 30 07/11/25 12:42 07/11/25 13:00 07/11/25 14:00 Temperature 37.6 C 37.7 C H Pulse Rate 76 Respiratory Rate 18 Blood Pressure 123/93 H Pulse Oximetry 96 98 Oxygen Delivery High Flow Therapy with Na Oxygen Flow Rate 20 Fraction of Inspired Oxygen 30 07/11/25 14:00 07/11/25 14:31 07/11/25 14:31 Temperature 38.9 C H Pulse Rate 76 140 H Respiratory Rate Blood Pressure Pulse Oximetry Oxygen Delivery Oxygen Flow Rate Fraction of Inspired Oxygen 07/11/25 14:49 07/11/25 15:31 07/11/25 15:49 Temperature 39.2 C H 39.1 C H 38.8 C H Pulse Rate Respiratory Rate Blood Pressure Pulse Oximetry Oxygen Delivery Oxygen Flow Rate Fraction of Inspired Oxygen 07/11/25 16:00 07/11/25 16:00 07/11/25 16:00 Temperature 38.8 C H Pulse Rate 90 95 Respiratory Rate 12 Blood Pressure 99/74 L Pulse Oximetry 96 96 Oxygen Delivery High Flow Nasal Cannula Oxygen Flow Rate 10 Fraction of Inspired Oxygen 07/11/25 16:49 07/11/25 18:00 07/11/25 18:00 Temperature 37.8 C H Pulse Rate 79 79 Respiratory Rate 19 Blood Pressure 109/77 Pulse Oximetry 98 95 Oxygen Delivery High Flow Nasal Cannula Oxygen Flow Rate 8 Fraction of Inspired Oxygen 07/11/25 20:00 07/11/25 20:00 07/11/25 20:00 Temperature 37.3 C Pulse Rate 76 79 Respiratory Rate 17 Blood Pressure 103/75 Pulse Oximetry 95 96 Oxygen Delivery High Flow Nasal Cannula Oxygen Flow Rate 5 Fraction of Inspired Oxygen 07/11/25 20:03 07/11/25 20:24 07/11/25 22:00 Temperature Pulse Rate 78 71 67 Respiratory Rate 20 Blood Pressure Pulse Oximetry 96 Oxygen Delivery High Flow Nasal Cannula Oxygen Flow Rate 5 Fraction of Inspired Oxygen 40 07/11/25 22:00 07/12/25 00:00 07/12/25 00:00 Temperature 37.0 C Pulse Rate 67 59 L Respiratory Rate 14 Blood Pressure 97/66 L Pulse Oximetry 96 96 Oxygen Delivery High Flow Nasal Cannula Oxygen Flow Rate 5 Fraction of Inspired Oxygen 07/12/25 00:00 07/12/25 02:00 07/12/25 02:00 Temperature 36.7 C 36.7 C Pulse Rate 59 L 60 60 Respiratory Rate 14 12 Blood Pressure 101/71 120/78 Pulse Oximetry 96 100 Oxygen Delivery Oxygen Flow Rate Fraction of Inspired Oxygen 07/12/25 04:00 07/12/25 04:00 07/12/25 04:00 Temperature 36.7 C Pulse Rate 59 L 60 Respiratory Rate 14 Blood Pressure 114/73 Pulse Oximetry 96 95 Oxygen Delivery Nasal Cannula Oxygen Flow Rate 3 Fraction of Inspired Oxygen 07/12/25 05:40 07/12/25 06:00 07/12/25 06:00 Temperature 37.0 C Pulse Rate 62 60 60 Respiratory Rate 20 16 Blood Pressure 123/68 Pulse Oximetry 96 95 Oxygen Delivery Nasal Cannula Oxygen Flow Rate 3 Fraction of Inspired Oxygen 32 07/12/25 09:05 Temperature Pulse Rate 81 Respiratory Rate Blood Pressure Pulse Oximetry Oxygen Delivery Oxygen Flow Rate Fraction of Inspired Oxygen Intake/Output Intake/Output: Intake & Output 07/09/25 07/10/25 07/11/25 07/12/25 23:59 23:59 23:59 23:59 Intake Total 1394 1644 2448 400 Output Total 2200 3400 3325 950 [facility] [phone] Meds/Results Medications: Active Medications Generic Name Dose Route Start Last Admin Trade Name Freq PRN Reason Stop Dose Admin Acetaminophen 650 mg 07/06/25 22:57 07/11/25 11:42 Acetaminophen 325 Mg Tablet PO 650 mg Q4H PRN Administration Mild Pain (1-3) or Fever Al Hydrox/Mg Hydrox/Simethicone 30 ml 07/06/25 22:57 Mag Hydrox/Al Hydrox/Simeth 30 Ml Udc PO QID PRN Dyspepsia Artificial Tears 1 drop 07/11/25 09:15 07/11/25 18:39 Artificial Tears Ophth Soln 15 Ml Bottle EACH EYE 1 drop QID PRN Administration Dry Eye(s) Bisacodyl 5 mg 07/06/25 22:57 Bisacodyl 5 Mg Tablet Ec PO DAILY PRN Constipation Bisacodyl 10 mg 07/12/25 07:55 Bisacodyl 10 Mg Suppository RECTAL QAM PRN Constipation Dextrose 12.5 gm 07/06/25 23:18 Dextrose 50% 25 Gm/50 Ml Syringe IV PUSH PRN PRN Hypoglycemia Protocol Enoxaparin Sodium 40 mg 07/07/25 09:00 07/08/25 07:47 Enoxaparin 40 Mg/0.4 Ml Syringe SUB-Q Not Given On Hold: 07/08/25 10:03 DAILY XENIA Fluticasone Propionate 1 spray 07/07/25 09:00 07/12/25 09:06 Fluticasone Propionate 0.05% Na Spr 16 Gm Btl (*Bkc) NASAL 1 spray Q12HR XENIA Administration Glucagon 1 mg 07/06/25 23:18 Glucagon For Inj 1 Mg Vial IM PRN PRN Hypoglycemia Protocol Glucose 15 gm 07/06/25 23:18 Glucose Oral Gel 15 Gm Of Glucse In 37.5 Gm Tube PO PRN PRN Hypoglycemia Protocol Dextrose 1,000 mls @ 100 mls/hr 07/06/25 23:18 Dextrose 5% 1,000 Ml IVPB PRN PRN Hypoglycemia Protocol Ibuprofen 400 mg/ Sodium 104 mls @ 208 mls/hr 07/07/25 17:27 07/11/25 15:01 Chloride IVPB Infused Q8H PRN Infusion Pain Rated 4-6 Ampicillin Sodium/Sulbactam 100 mls @ 200 mls/hr 07/11/25 10:30 07/12/25 05:38 Sodium 3 gm/ Sodium Chloride IVPB Infused Q6HR XENIA Infusion Insulin Aspart 3 - 6 units 07/07/25 08:00 07/12/25 09:05 Insulin Aspart (*Bkc) 100 Units/Ml SUB-Q Not Given TIDWM [facility] Protocol Metoprolol Tartrate 12.5 mg 07/10/25 21:00 07/12/25 09:05 Metoprolol Tartrate 12.5 Mg Tablet PO 12.5 mg Q12HR [facility] Administration Morphine Sulfate 2 mg 07/11/25 12:23 Morphine Sulfate (*Crx) 2 Mg/Ml Inj IV PUSH Q2H PRN Pain Rated 7-10 Morphine Sulfate 4 mg 07/11/25 12:23 07/11/25 13:30 Morphine Sulfate (*Crx) 4 Mg/Ml Inj IV PUSH 4 mg ONCE PRN Administration Preprocedure Ondansetron HCl 4 mg 07/06/25 22:57 07/09/25 13:54 Ondansetron Inj 4 Mg/2 Ml Vial IV PUSH 4 mg Q6H PRN Administration Nausea And Vomiting Pantoprazole Sodium 40 mg 07/12/25 09:00 07/12/25 09:05 Pantoprazole Sodium Iv 40 Mg Vial IV PUSH 40 mg QAM XENIA Administration Polyethylene Glycol 17 gm 07/12/25 09:00 07/12/25 09:13 Polyethylene Glycol 3350 17 Gm Powd.Pack PO Not Given QAM XENIA Sodium Chloride 10 ml 07/07/25 14:00 07/12/25 05:08 Central Line Flush IV PUSH 10 ml Q8HR XENIA Administration Sodium Chloride 20 ml 07/07/25 06:38 Central Line Flush IV PUSH PRN PRN after blood draws Radiology Results: ITS Impressions Upper Quadrant Ultrasound 07/09/25 14:30 IMPRESSION: 1. Normal right upper quadrant ultrasound with no intra or extrahepatic biliary ductal dilation. Chest X-Ray 07/10/25 08:10 IMPRESSION: 1. Unchanged elevation right hemidiaphragm opacity bilateral lower lung zones which could represent atelectasis or pneumonia. Venous Doppler Study 07/10/25 15:15 Impression: Negative for DVT. Chest/Abdomen/Pelvis CT 07/10/25 15:44 IMPRESSION: 1. New groundglass opacities in right lung upper lobe, consistent with pneumonia. 2. Small pleural effusions. 3. Distended gallbladder with gallstone suspicious for acute cholecystitis. 4. Worsened liver mass near the gallbladder, consistent with abscess. Cholecystostomy 07/11/25 14:51 IMPRESSION: 1. Successful ultrasound-guided cholecystostomy tube placement. 2. 20 mL bile was sent for aerobic, anaerobic, and fungal cultures. 3. The catheter will be managed by Dr. Sarabia. A catheter cholangiogram may be performed not less than 48 hours after tube placement if clinically indicated to assess cystic duct patency. If cholecystectomy is not eventually performed and the infectious episode has resolved, the tube may be removed over a guidewire, preferably not less than 3 weeks after placement to allow time for a mature catheter tract to form to prevent bile leakage and peritonitis. Labs Labs: Laboratory Results - last 24 hr 07/11/25 07/11/25 07/11/25 08:10 11:41 12:13 WBC 10.2 H RBC 3.83 L Hgb 12.1 L Hct 35.9 L MCV 93.7 MCH 31.6 MCHC 33.7 RDW 14.6 H Plt Count 56 L D MPV 11.2 H Immature Gran % (Auto) Neut % (Auto) Lymph % (Auto) [place] % (Auto) Eos % (Auto) Baso % (Auto) Lymph # (Auto) [place] # (Auto) Eos # (Auto) Baso # (Auto) Abs Immat Gran (auto) Absolute Neuts (auto) Absolute Nucleated RBC Band Neutrophils % Nucleated RBC % Platelet Estimate % Immature Plt Fraction 8.0 Anisocytosis Schistocytes Sodium Potassium Chloride Carbon Dioxide Anion Gap BUN Creatinine Estim Creat Clear Calc Estimated GFR Glucose POC Capillary Glucose 120 H Calcium Phosphorus Magnesium Total Bilirubin AST ALT Alkaline Phosphatase Total Protein Albumin Blood Type A Positive 07/11/25 07/11/25 07/12/25 15:11 20:30 04:12 WBC 8.7 RBC 3.47 L Hgb 11.0 L Hct 33.0 L MCV 95.1 MCH 31.7 MCHC 33.3 RDW 14.6 H Plt Count 47 L MPV 11.3 H Immature Gran % (Auto) 2.1 H Neut % (Auto) 77.9 H Lymph % (Auto) 6.9 L [place] % (Auto) 11.4 H Eos % (Auto) 1.2 Baso % (Auto) 0.5 Lymph # (Auto) 0.60 L [place] # (Auto) 1.0 H Eos # (Auto) 0.1 Baso # (Auto) 0.0 Abs Immat Gran (auto) 0.18 H Absolute Neuts (auto) 6.8 H Absolute Nucleated RBC 0.000 Band Neutrophils % Not Reportable Nucleated RBC % 0.0 Platelet Estimate Decreased % Immature Plt Fraction 10.1 Anisocytosis 1+ Schistocytes None seen Sodium 140 141 Potassium 3.4 3.5 Chloride 108 H 108 H Carbon Dioxide 27 28 Anion Gap 5 5 BUN 37 H 35 H Creatinine 0.84 0.80 Estim Creat Clear Calc 81 85 Estimated GFR > 60 > 60 Glucose 135 H 80 POC Capillary Glucose 215 H Calcium 7.6 L 7.5 L Phosphorus 2.5 Magnesium 1.8 2.3 Total Bilirubin 0.7 AST 61 H ALT 68 H Alkaline Phosphatase 102 Total Protein 5.1 L Albumin 2.6 L Blood Type 07/12/25 08:43 WBC RBC Hgb Hct MCV MCH MCHC RDW Plt Count MPV Immature Gran % (Auto) Neut % (Auto) Lymph % (Auto) [place] % (Auto) Eos % (Auto) Baso % (Auto) Lymph # (Auto) [place] # (Auto) Eos # (Auto) Baso # (Auto) Abs Immat Gran (auto) Absolute Neuts (auto) Absolute Nucleated RBC Band Neutrophils % Nucleated RBC % Platelet Estimate % Immature Plt Fraction Anisocytosis Schistocytes Sodium Potassium Chloride Carbon Dioxide Anion Gap BUN Creatinine Estim Creat Clear Calc Estimated GFR Glucose POC Capillary Glucose 122 H Calcium Phosphorus Magnesium Total Bilirubin AST ALT Alkaline Phosphatase Total Protein Albumin Blood Type
--- NOTE | 2025-07-12 10:56 | PCFNICU ---
ICU Rounding Note: Pt current nutrition is Low Fat. Last recorded weight is 103.8 kg, down from 105.8 kg. Bowel Motility: +BM reported 07/09 Labs Reviewed: BUN 35, Alb 2.6, Hct 33.0, Hgb 11.0 Meds Noted: Lovenox, Miralax, Lopressor, Protonix. Skin: WNL Additional Notes:Patient NPO 07/11 for procedure. Diet orders has advanced to Low Fat diet for lunch. Tolerated clear liquids for breakfast today. Agree with diet orders. Following daily in ICU rounds. Will monitor weight, labs, skin, diet orders, meds every 3 days.
--- NOTE | 2025-07-12 11:17 | P.PNINF_ITS ---
Progress Note: A&P Assessment and Plan (1) Gram negative septicemia: Code(s): A41.50 - Gram-negative sepsis, unspecified Status: Acute (2) Septic shock: Code(s): A41.9 - Sepsis, unspecified organism; R65.21 - Severe sepsis with septic shock Status: Acute (3) Abdominal pain in male: Code(s): R10.9 - Unspecified abdominal pain Status: Acute (4) Diarrhea: Code(s): R19.7 - Diarrhea, unspecified Status: Acute (5) Elevated LFTs: Code(s): R79.89 - Other specified abnormal findings of blood chemistry Status: Acute (6) Acute hypoxic respiratory failure: Code(s): J96.01 - Acute respiratory failure with hypoxia Status: Acute (7) Thrombocytopenia: Code(s): D69.6 - Thrombocytopenia, unspecified Status: Acute (8) Ejection fraction < 50%: Status: Acute Plan # Pansensitive E coli and Bacteroides bacteremia associated with complicated cholecystitis with associated liver abscess. -- now status post IR cholecystostomy tube placement. Procedure cultures pending. # Severe sepsis with septic shock. -- now off of pressors. # Hypoxemia. -- may be a manifestation of sepsis, heart failure with pulmonary edema, or pneumonia. -- improved. # Diminished ejection fraction. # Mild transaminitis. -- improving. Bilirubin normalized. # Thrombocytopenia. -- suspect sepsis versus medication induced. -- slightly improved today but received platelets for procedure yesterday. Plan: -- to cover for E coli, Bacteroides, and for the possibility that cefepime may be contributing to thrombocytopenia have changed antibiotics to Unasyn. -- continue to follow repeat blood cultures as well as today's gallbladder for/Liver drain culture. -- follow platelets. -- discussed with patient and his who is at bedside. Patient was seen via video telehealth consultation with the assistance of staff. Chart, data, and patient independently reviewed. Patient was located at [facility] while I was located in my [place] office. Received verbal consent from patient. Subjective Date/time seen: 07/12/25 11:17 Interval history: 07/10/2025: T-max of 103? this afternoon with rigors. O2 saturation 98% on 40% high-flow nasal cannula. Off of pressors. White blood cell count normal. GFR greater than 60. 07/11/2025: Repeat CT scan now reaffirm main suspected cholecystitis and with associated liver abscess. Percutaneous drain placed. Continued fever but oxygenation improved. While presentation blood cultures at outside emergency room positive for E coli, presentation cultures at this hospital positive for Bacteroides. 07/12/2025: Afebrile. Last fever at 4:00 p.m. yesterday. Status post cholecystostomy tube placement yesterday. Drainage cultures are pending. He feels significantly better after placement of cholecystostomy tube. Blood cultures 07/07 at outside hospital: pansensitive E coli. Blood cultures 07/07: Bacteroides Blood cultures 07/08: Negative in 24 hours. Blood cultures 07/10: No growth to date Stool culture 07/08: pending Cefepime 2 g IV q.12 hours 07/07 -- 07/11 Unasyn 3 g IV q.6 hours 07/11-- Review of Systems Review of Systems: All systems reviewed & are unremarkable except as noted in HPI and below Exam Narrative: Awake and alert and able to answer questions. No longer requiring high-flow nasal cannula. No conjunctivitis. Breathing comfortably with nasal cannula. Abdomen with some distention. Cholecystostomy tube drainage with trochlea covered liquid output. No evidence of rash. No pruritus. Left IJ present and placed at outside institution. Objective Data Vital Signs Vital Signs: Vital Signs - 24 hr 07/11/25 11:42 07/11/25 11:59 07/11/25 12:00 Temperature 99.9 F H Pulse Rate 67 Respiratory Rate Blood Pressure Pulse Oximetry 93 Oxygen Delivery High Flow Therapy with Na Oxygen Flow Rate 20 Fraction of Inspired Oxygen 07/11/25 12:00 07/11/25 12:42 07/11/25 13:00 Temperature 100 F H 99.6 F Pulse Rate 75 Respiratory Rate 16 Blood Pressure 126/89 Pulse Oximetry 93 96 Oxygen Delivery High Flow Therapy with Na Oxygen Flow Rate 20 Fraction of Inspired Oxygen 07/11/25 14:00 07/11/25 14:00 07/11/25 14:31 Temperature 99.8 F H Pulse Rate 76 76 140 H Respiratory Rate 18 Blood Pressure 123/93 H Pulse Oximetry 98 Oxygen Delivery Oxygen Flow Rate Fraction of Inspired Oxygen 07/11/25 14:31 07/11/25 14:49 07/11/25 15:31 Temperature 102.1 F H 102.6 F H 102.3 F H Pulse Rate Respiratory Rate Blood Pressure Pulse Oximetry Oxygen Delivery Oxygen Flow Rate Fraction of Inspired Oxygen 07/11/25 15:49 07/11/25 16:00 07/11/25 16:00 Temperature 101.9 F H Pulse Rate 90 Respiratory Rate Blood Pressure Pulse Oximetry 96 Oxygen Delivery High Flow Nasal Cannula Oxygen Flow Rate 10 Fraction of Inspired Oxygen 07/11/25 16:00 07/11/25 16:49 07/11/25 18:00 Temperature 101.9 F H Pulse Rate 95 79 Respiratory Rate 12 Blood Pressure 99/74 L Pulse Oximetry 96 98 Oxygen Delivery High Flow Nasal Cannula Oxygen Flow Rate 8 Fraction of Inspired Oxygen 07/11/25 18:00 07/11/25 20:00 07/11/25 20:00 Temperature 100.1 F H 99.1 F Pulse Rate 79 76 Respiratory Rate 19 17 Blood Pressure 109/77 103/75 Pulse Oximetry 95 95 96 Oxygen Delivery High Flow Nasal Cannula Oxygen Flow Rate 5 Fraction of Inspired Oxygen 07/11/25 20:00 07/11/25 20:03 07/11/25 20:24 Temperature Pulse Rate 79 78 71 Respiratory Rate 20 Blood Pressure Pulse Oximetry 96 Oxygen Delivery High Flow Nasal Cannula Oxygen Flow Rate 5 Fraction of Inspired Oxygen 40 07/11/25 22:00 07/11/25 22:00 07/12/25 00:00 Temperature 98.6 F Pulse Rate 67 67 Respiratory Rate 14 Blood Pressure 97/66 L Pulse Oximetry 96 96 Oxygen Delivery High Flow Nasal Cannula Oxygen Flow Rate 5 Fraction of Inspired Oxygen 07/12/25 00:00 07/12/25 00:00 07/12/25 02:00 Temperature 98.1 F 98.0 F Pulse Rate 59 L 59 L 60 Respiratory Rate 14 12 Blood Pressure 101/71 120/78 Pulse Oximetry 96 100 Oxygen Delivery Oxygen Flow Rate Fraction of Inspired Oxygen 07/12/25 02:00 07/12/25 04:00 07/12/25 04:00 Temperature 98.1 F Pulse Rate 60 59 L Respiratory Rate 14 Blood Pressure 114/73 Pulse Oximetry 96 95 Oxygen Delivery Nasal Cannula Oxygen Flow Rate 3 Fraction of Inspired Oxygen 07/12/25 04:00 07/12/25 05:40 07/12/25 06:00 Temperature Pulse Rate 60 62 60 Respiratory Rate 20 Blood Pressure Pulse Oximetry 96 Oxygen Delivery Nasal Cannula Oxygen Flow Rate 3 Fraction of Inspired Oxygen 32 07/12/25 06:00 07/12/25 08:00 07/12/25 08:00 Temperature 98.6 F 98.7 F Pulse Rate 60 67 65 Respiratory Rate 16 13 Blood Pressure 123/68 124/84 Pulse Oximetry 95 97 Oxygen Delivery Oxygen Flow Rate Fraction of Inspired Oxygen 07/12/25 09:05 07/12/25 10:00 07/12/25 10:00 Temperature 99.7 F H Pulse Rate 81 77 77 Respiratory Rate 13 Blood Pressure 129/80 Pulse Oximetry 95 Oxygen Delivery Oxygen Flow Rate Fraction of Inspired Oxygen Intake/Output Intake/Output: Intake & Output 07/09/25 07/10/25 07/11/25 07/12/25 23:59 23:59 23:59 23:59 Intake Total 1394 1644 2448 900 Output Total 2200 3400 3325 950 [facility] [phone] Meds/Results Medications: Active Medications Generic Name Dose Route Start Last Admin Trade Name Freq PRN Reason Stop Dose Admin Acetaminophen 650 mg 07/06/25 22:57 07/11/25 11:42 Acetaminophen 325 Mg Tablet PO 650 mg Q4H PRN Administration Mild Pain (1-3) or Fever Al Hydrox/Mg Hydrox/Simethicone 30 ml 07/06/25 22:57 Mag Hydrox/Al Hydrox/Simeth 30 Ml Udc PO QID PRN Dyspepsia Artificial Tears 1 drop 07/11/25 09:15 07/11/25 18:39 Artificial Tears Ophth Soln 15 Ml Bottle EACH EYE 1 drop QID PRN Administration Dry Eye(s) Bisacodyl 5 mg 07/06/25 22:57 Bisacodyl 5 Mg Tablet Ec PO DAILY PRN Constipation Bisacodyl 10 mg 07/12/25 07:55 Bisacodyl 10 Mg Suppository RECTAL QAM PRN Constipation Dextrose 12.5 gm 07/06/25 23:18 Dextrose 50% 25 Gm/50 Ml Syringe IV PUSH PRN PRN Hypoglycemia Protocol Enoxaparin Sodium 40 mg 07/07/25 09:00 07/08/25 07:47 Enoxaparin 40 Mg/0.4 Ml Syringe SUB-Q Not Given On Hold: 07/08/25 10:03 DAILY XENIA Fluticasone Propionate 1 spray 07/07/25 09:00 09/18/25 09:06 Fluticasone Propionate 0.05% Na Spr 16 Gm Btl (*Bkc) NASAL 1 spray Q12HR XENIA Administration Glucagon 1 mg 07/06/25 23:18 Glucagon For Inj 1 Mg Vial IM PRN PRN Hypoglycemia Protocol Glucose 15 gm 07/06/25 23:18 Glucose Oral Gel 15 Gm Of Glucse In 37.5 Gm Tube PO PRN PRN Hypoglycemia Protocol Dextrose 1,000 mls @ 100 mls/hr 07/06/25 23:18 Dextrose 5% 1,000 Ml IVPB PRN PRN Hypoglycemia Protocol Ibuprofen 400 mg/ Sodium 104 mls @ 208 mls/hr 07/07/25 17:27 07/11/25 15:01 Chloride IVPB Infused Q8H PRN Infusion Pain Rated 4-6 Ampicillin Sodium/Sulbactam 100 mls @ 200 mls/hr 07/11/25 10:30 07/12/25 05: 38 Sodium 3 gm/ Sodium Chloride IVPB Infused Q6HR XENIA Infusion Insulin Aspart 3 - 6 units 07/07/25 08:00 07/12/25 09:05 Insulin Aspart (*Bkc) 100 Units/Ml SUB-Q Not Given TIDWM [facility] Protocol Metoprolol Tartrate 12.5 mg 07/10/25 21:00 07/12/25 09:05 Metoprolol Tartrate 12.5 Mg Tablet PO 12.5 mg Q12HR XENIA Administration Morphine Sulfate 2 mg 07/11/25 12:23 Morphine Sulfate (*Crx) 2 Mg/Ml Inj IV PUSH Q2H PRN Pain Rated 7-10 Morphine Sulfate 4 mg 07/11/25 12:23 07/11/25 13:30 Morphine Sulfate (*Crx) 4 Mg/Ml Inj IV PUSH 4 mg ONCE PRN Administration Preprocedure Ondansetron HCl 4 mg 07/06/25 22:57 07/09/25 13:54 Ondansetron Inj 4 Mg/2 Ml Vial IV PUSH 4 mg Q6H PRN Administration Nausea And Vomiting Pantoprazole Sodium 40 mg 07/12/25 09:00 07/12/25 09:05 Pantoprazole Sodium Iv 40 Mg Vial IV PUSH 40 mg QAM XENIA Administration Polyethylene Glycol 17 gm 07/12/25 09:00 07/12/25 09:13 Polyethylene Glycol 3350 17 Gm Powd.Pack PO Not Given QAM XENIA Sodium Chloride 10 ml 07/07/25 14:00 07/12/25 05:08 Central Line Flush IV PUSH 10 ml Q8HR XENIA Administration Sodium Chloride 20 ml 07/07/25 06:38 Central Line Flush IV PUSH PRN PRN after blood draws Radiology Results: ITS Impressions Upper Quadrant Ultrasound 07/09/25 14:30 IMPRESSION: 1. Normal right upper quadrant ultrasound with no intra or extrahepatic biliary ductal dilation. Chest X-Ray 07/10/25 08:10 IMPRESSION: 1. Unchanged elevation right hemidiaphragm opacity bilateral lower lung zones which could represent atelectasis or pneumonia. Venous Doppler Study 07/10/25 15:15 Impression: Negative for DVT. Chest/Abdomen/Pelvis CT 07/10/25 15:44 IMPRESSION: 1. New groundglass opacities in right lung upper lobe, consistent with pneumonia. 2. Small pleural effusions. 3. Distended gallbladder with gallstone suspicious for acute cholecystitis. 4. Worsened liver mass near the gallbladder, consistent with abscess. Cholecystostomy 07/11/25 14:51 IMPRESSION: 1. Successful ultrasound-guided cholecystostomy tube placement. 2. 20 mL bile was sent for aerobic, anaerobic, and fungal cultures. 3. The catheter will be managed by Dr. Sarabia. A catheter cholangiogram may be performed not less than 48 hours after tube placement if clinically indicated to assess cystic duct patency. If cholecystectomy is not eventually performed and the infectious episode has resolved, the tube may be removed over a guidewire, preferably not less than 3 weeks after placement to allow time for a mature catheter tract to form to prevent bile leakage and peritonitis. Labs Labs: Laboratory Results - last 24 hr 07/11/25 07/11/25 07/11/25 11:41 12:13 15:11 WBC 10.2 H RBC 3.83 L Hgb 12.1 L Hct 35.9 L MCV 93.7 MCH 31.6 MCHC 33.7 RDW 14.6 H Plt Count 56 L D MPV 11.2 H Immature Gran % (Auto) Neut % (Auto) Lymph % (Auto) [place] % (Auto) Eos % (Auto) Baso % (Auto) Lymph # (Auto) [place] # (Auto) Eos # (Auto) Baso # (Auto) Abs Immat Gran (auto) Absolute Neuts (auto) Absolute Nucleated RBC Band Neutrophils % Nucleated RBC % Platelet Estimate % Immature Plt Fraction 8.0 Anisocytosis Schistocytes Sodium 140 Potassium 3.4 Chloride 108 H Carbon Dioxide 27 Anion Gap 5 BUN 37 H Creatinine 0.84 Estim Creat Clear Calc 81 Estimated GFR > 60 Glucose 135 H POC Capillary Glucose 120 H Calcium 7.6 L Phosphorus Magnesium 1.8 Total Bilirubin AST ALT Alkaline Phosphatase Total Protein Albumin 07/11/25 07/12/25 07/12/25 20:30 04:12 08:43 WBC 8.7 RBC 3.47 L Hgb 11.0 L Hct 33.0 L MCV 95.1 MCH 31.7 MCHC 33.3 RDW 14.6 H Plt Count 47 L MPV 11.3 H Immature Gran % (Auto) 2.1 H Neut % (Auto) 77.9 H Lymph % (Auto) 6.9 L [place] % (Auto) 11.4 H Eos % (Auto) 1.2 Baso % (Auto) 0.5 Lymph # (Auto) 0.60 L [place] # (Auto) 1.0 H Eos # (Auto) 0.1 Baso # (Auto) 0.0 Abs Immat Gran (auto) 0.18 H Absolute Neuts (auto) 6.8 H Absolute Nucleated RBC 0.000 Band Neutrophils % Not Reportable Nucleated RBC % 0.0 Platelet Estimate Decreased % Immature Plt Fraction 10.1 Anisocytosis 1+ Schistocytes None seen Sodium 141 Potassium 3.5 Chloride 108 H Carbon Dioxide 28 Anion Gap 5 BUN 35 H Creatinine 0.80 Estim Creat Clear Calc 85 Estimated GFR > 60 Glucose 80 POC Capillary Glucose 215 H 122 H Calcium 7.5 L Phosphorus 2.5 Magnesium 2.3 Total Bilirubin 0.7 AST 61 H ALT 68 H Alkaline Phosphatase 102 Total Protein 5.1 L Albumin 2.6 L
--- NOTE | 2025-07-12 12:50 | P.PNGS_ITS ---
Subjective Subjective Date/Time Seen: 07/12/25 12:50 Patient reports: no new complaints, feels better, pain is less, bowel movement and fever (99.7) Interval history: Patient is doing well today. He states he is feeling much better today. Cholecystostomy tube was placed yesterday. Patent and draining bilious fluid. No percutaneous drain was placed into the liver mass near the gallbladder. Afebrile overnight, but low grade fever at 99.7 as of 10am this morning. Exam Const: General: comfortable and no acute distress GI: Inspection: non-distended GI Palp: Yes Soft to palpation and No Tenderness to palpation present (GI) Auscultation: normal bowel sounds Other: percutaneous cholecystectomy drain in place. Gauze bandage clean and dry. Patent and draining bilious fluid. No purulence noted. Objective Data Vital Signs Vital Signs: Vital Signs - 24 hr 07/11/25 13:00 07/11/25 14:00 07/11/25 14:00 Temperature 99.8 F H Pulse Rate 76 76 Respiratory Rate 18 Blood Pressure 123/93 H Pulse Oximetry 96 98 Oxygen Delivery High Flow Therapy with Na Oxygen Flow Rate 20 Fraction of Inspired Oxygen 30 07/11/25 14:31 07/11/25 14:31 07/11/25 14:49 Temperature 102.1 F H 102.6 F H Pulse Rate 140 H Respiratory Rate Blood Pressure Pulse Oximetry Oxygen Delivery Oxygen Flow Rate Fraction of Inspired Oxygen 07/11/25 15:31 07/11/25 15:49 07/11/25 16:00 Temperature 102.3 F H 101.9 F H Pulse Rate Respiratory Rate Blood Pressure Pulse Oximetry 96 Oxygen Delivery High Flow Nasal Cannula Oxygen Flow Rate 10 Fraction of Inspired Oxygen 07/11/25 16:00 07/11/25 16:00 07/11/25 16:49 Temperature 101.9 F H Pulse Rate 90 95 Respiratory Rate 12 Blood Pressure 99/74 L Pulse Oximetry 96 98 Oxygen Delivery High Flow Nasal Cannula Oxygen Flow Rate 8 Fraction of Inspired Oxygen 07/11/25 18:00 07/11/25 18:00 07/11/25 20:00 Temperature 100.1 F H Pulse Rate 79 79 Respiratory Rate 19 Blood Pressure 109/77 Pulse Oximetry 95 95 Oxygen Delivery High Flow Nasal Cannula Oxygen Flow Rate 5 Fraction of Inspired Oxygen 07/11/25 20:00 07/11/25 20:00 07/11/25 20:03 Temperature 99.1 F Pulse Rate 76 79 78 Respiratory Rate 17 Blood Pressure 103/75 Pulse Oximetry 96 Oxygen Delivery Oxygen Flow Rate Fraction of Inspired Oxygen 07/11/25 20:24 07/11/25 22:00 07/11/25 22:00 Temperature 98.6 F Pulse Rate 71 67 67 Respiratory Rate 20 14 Blood Pressure 97/66 L Pulse Oximetry 96 96 Oxygen Delivery High Flow Nasal Cannula Oxygen Flow Rate 5 Fraction of Inspired Oxygen 40 07/12/25 00:00 07/12/25 00:00 07/12/25 00:00 Temperature 98.1 F Pulse Rate 59 L 59 L Respiratory Rate 14 Blood Pressure 101/71 Pulse Oximetry 96 96 Oxygen Delivery High Flow Nasal Cannula Oxygen Flow Rate 5 Fraction of Inspired Oxygen 07/12/25 02:00 07/12/25 02:00 07/12/25 04:00 Temperature 98.0 F 98.1 F Pulse Rate 60 60 59 L Respiratory Rate 12 14 Blood Pressure 120/78 114/73 Pulse Oximetry 100 96 Oxygen Delivery Oxygen Flow Rate Fraction of Inspired Oxygen 07/12/25 04:00 07/12/25 04:00 07/12/25 05:40 Temperature Pulse Rate 60 62 Respiratory Rate 20 Blood Pressure Pulse Oximetry 95 96 Oxygen Delivery Nasal Cannula Nasal Cannula Oxygen Flow Rate 3 3 Fraction of Inspired Oxygen 32 07/12/25 06:00 07/12/25 06:00 07/12/25 08:00 Temperature 98.6 F 98.7 F Pulse Rate 60 60 67 Respiratory Rate 16 13 Blood Pressure 123/68 124/84 Pulse Oximetry 95 97 Oxygen Delivery Oxygen Flow Rate Fraction of Inspired Oxygen 07/12/25 08:00 07/12/25 09:05 07/12/25 10:00 Temperature 99.7 F H Pulse Rate 65 81 77 Respiratory Rate 13 Blood Pressure 129/80 Pulse Oximetry 95 Oxygen Delivery Oxygen Flow Rate Fraction of Inspired Oxygen 07/12/25 10:00 Temperature Pulse Rate 77 Respiratory Rate Blood Pressure Pulse Oximetry Oxygen Delivery Oxygen Flow Rate Fraction of Inspired Oxygen Intake/Output Intake/Output: Intake & Output 07/09/25 07/10/25 07/11/25 07/12/25 23:59 23:59 23:59 23:59 Intake Total 1394 1644 2448 900 Output Total 2200 3400 332 950 [facility] -[phone] Meds/Results Medications: Active Medications Generic Name Dose Route Start Last Admin Trade Name Freq PRN Reason Stop Dose Admin Acetaminophen 650 mg 07/06/25 22:57 07/11/25 11:42 Acetaminophen 325 Mg Tablet PO 650 mg Q4H PRN Administration Mild Pain (1-3) or Fever Al Hydrox/Mg Hydrox/Simethicone 30 ml 07/06/25 22:57 Mag Hydrox/Al Hydrox/Simeth 30 Ml Udc PO QID PRN Dyspepsia Artificial Tears 1 drop 07/11/25 09:15 07/11/25 18:39 Artificial Tears Ophth Soln 15 Ml Bottle EACH EYE 1 drop QID PRN Administration Dry Eye(s) Bisacodyl 5 mg 07/06/25 22:57 Bisacodyl 5 Mg Tablet Ec PO DAILY PRN Constipation Bisacodyl 10 mg 07/12/25 07:55 Bisacodyl 10 Mg Suppository RECTAL QAM PRN Constipation Dextrose 12.5 gm 07/06/25 23:18 Dextrose 50% 25 Gm/50 Ml Syringe IV PUSH PRN PRN Hypoglycemia Protocol Enoxaparin Sodium 40 mg 07/07/25 09:00 07/08/25 07:47 Enoxaparin 40 Mg/0.4 Ml Syringe SUB-Q Not Given On Hold: 07/08/25 10:03 DAILY XENIA Fluticasone Propionate 1 spray 07/07/25 09:00 07/12/25 09:06 Fluticasone Propionate 0.05% Na Spr 16 Gm Btl (*Bkc) NASAL 1 spray Q12HR XENIA Administration Glucagon 1 mg 07/06/25 23:18 Glucagon For Inj 1 Mg Vial IM PRN PRN Hypoglycemia Protocol Glucose 15 gm 07/06/25 23:18 Glucose Oral Gel 15 Gm Of Glucse In 37.5 Gm Tube PO PRN PRN Hypoglycemia Protocol Dextrose 1,000 mls @ 100 mls/hr 07/06/25 23:18 Dextrose 5% 1,000 Ml IVPB PRN PRN Hypoglycemia Protocol Ibuprofen 400 mg/ Sodium 104 mls @ 208 mls/hr 07/07/25 17:27 07/11/25 15:01 Chloride IVPB Infused Q8H PRN Infusion Pain Rated 4-6 Ampicillin Sodium/Sulbactam 100 mls @ 200 mls/hr 07/11/25 10:30 07/12/25 12:01 Sodium 3 gm/ Sodium Chloride IVPB 200 mls/hr Q6HR XENIA Administration Insulin Aspart 3 - 6 units 07/07/25 08:00 07/12/25 11:55 Insulin Aspart (*Bkc) 100 Units/Ml SUB-Q Not Given TIDWM [facility] Protocol Metoprolol Tartrate 12.5 mg 07/10/25 21:00 07/12/25 09:05 Metoprolol Tartrate 12.5 Mg Tablet PO 12.5 mg Q12HR XENIA Administration Morphine Sulfate 2 mg 07/11/25 12:23 Morphine Sulfate (*Crx) 2 Mg/Ml Inj IV PUSH Q2H PRN Pain Rated 7-10 Morphine Sulfate 4 mg 07/11/25 12:23 07/11/25 13:30 Morphine Sulfate (*Crx) 4 Mg/Ml Inj IV PUSH 4 mg ONCE PRN Administration Preprocedure Ondansetron HCl 4 mg 07/06/25 22:57 07/09/25 13:54 Ondansetron Inj 4 Mg/2 Ml Vial IV PUSH 4 mg Q6H PRN Administration Nausea And Vomiting Pantoprazole Sodium 40 mg 07/12/25 09:00 07/12/25 09:05 Pantoprazole Sodium Iv 40 Mg Vial IV PUSH 40 mg QAM XENIA Administration Polyethylene Glycol 17 gm 07/12/25 09:00 07/12/25 09:13 Polyethylene Glycol 3350 17 Gm Powd.Pack PO Not Given QAM XENIA Sodium Chloride 10 ml 07/07/25 14:00 07/12/25 05:08 Central Line Flush IV PUSH 10 ml Q8HR XENIA Administration Sodium Chloride 20 ml 07/07/25 06:38 Central Line Flush IV PUSH PRN PRN after blood draws Radiology Results: ITS Impressions Upper Quadrant Ultrasound 07/09/25 14:30 IMPRESSION: 1. Normal right upper quadrant ultrasound with no intra or extrahepatic biliary ductal dilation. Chest X-Ray 07/10/25 08:10 IMPRESSION: 1. Unchanged elevation right hemidiaphragm opacity bilateral lower lung zones which could represent atelectasis or pneumonia. Venous Doppler Study 07/10/25 15:15 Impression: Negative for DVT. Chest/Abdomen/Pelvis CT 07/10/25 15:44 IMPRESSION: 1. New groundglass opacities in right lung upper lobe, consistent with pneumonia. 2. Small pleural effusions. 3. Distended gallbladder with gallstone suspicious for acute cholecystitis. 4. Worsened liver mass near the gallbladder, consistent with abscess. Cholecystostomy 07/11/25 14:51 IMPRESSION: 1. Successful ultrasound-guided cholecystostomy tube placement. 2. 20 mL bile was sent for aerobic, anaerobic, and fungal cultures. 3. The catheter will be managed by Dr. Sarabia. A catheter cholangiogram may be performed not less than 48 hours after tube placement if clinically indicated to assess cystic duct patency. If cholecystectomy is not eventually performed and the infectious episode has resolved, the tube may be removed over a guidewire, preferably not less than 3 weeks after placement to allow time for a mature catheter tract to form to prevent bile leakage and peritonitis. Labs Labs: Laboratory Results - last 24 hr 07/11/25 07/11/25 07/12/25 15:11 20:30 04:12 WBC 8.7 RBC 3.47 L Hgb 11.0 L Hct 33.0 L MCV 95.1 MCH 31.7 MCHC 33.3 RDW 14.6 H Plt Count 47 L MPV 11.3 H Immature Gran % (Auto) 2.1 H Neut % (Auto) 77.9 H Lymph % (Auto) 6.9 L [place] % (Auto) 11.4 H Eos % (Auto) 1.2 Baso % (Auto) 0.5 Lymph # (Auto) 0.60 L [place] # (Auto) 1.0 H Eos # (Auto) 0.1 Baso # (Auto) 0.0 Abs Immat Gran (auto) 0.18 H Absolute Neuts (auto) 6.8 H Absolute Nucleated RBC 0.000 Band Neutrophils % Not Reportable Nucleated RBC % 0.0 Platelet Estimate Decreased % Immature Plt Fraction 10.1 Anisocytosis 1+ Schistocytes None seen Sodium 140 141 Potassium 3.4 3.5 Chloride 108 H 108 H Carbon Dioxide 27 28 Anion Gap 5 5 BUN 37 H 35 H Creatinine 0.84 0.80 Estim Creat Clear Calc 81 85 Estimated GFR > 60 > 60 Glucose 135 H 80 POC Capillary Glucose 215 H Calcium 7.6 L 7.5 L Phosphorus 2.5 Magnesium 1.8 2.3 Total Bilirubin 0.7 AST 61 H ALT 68 H Alkaline Phosphatase 102 Total Protein 5.1 L Albumin 2.6 L 07/12/25 07/12/25 08:43 11:53 WBC RBC Hgb Hct MCV MCH MCHC RDW Plt Count MPV Immature Gran % (Auto) Neut % (Auto) Lymph % (Auto) [place] % (Auto) Eos % (Auto) Baso % (Auto) Lymph # (Auto) [place] # (Auto) Eos # (Auto) Baso # (Auto) Abs Immat Gran (auto) Absolute Neuts (auto) Absolute Nucleated RBC Band Neutrophils % Nucleated RBC % Platelet Estimate % Immature Plt Fraction Anisocytosis Schistocytes Sodium Potassium Chloride Carbon Dioxide Anion Gap BUN Creatinine Estim Creat Clear Calc Estimated GFR Glucose POC Capillary Glucose 122 H 191 H Calcium Phosphorus Magnesium Total Bilirubin AST ALT Alkaline Phosphatase Total Protein Albumin
--- NOTE | 2025-07-12 16:52 | PM.IMPN ---
Progress Note: A&P Assessment and Plan (1) Septic shock: Code(s): A41.9 - Sepsis, unspecified organism; R65.21 - Severe sepsis with septic shock Status: Acute Assessment and Plan: Patient presented to the outside hospital in [facility] with complains of shortness of breath, abdominal bloating. -CTA chest abdomen and pelvis showed no pulmonary embolism, cholelithiasis with possible acute cholecystitis -ultrasound of right upper quadrant was negative for cholecystitis -UA suggestive of UTI and CT scan was negative for any kidney stones -blood cultures at outside hospital grew E coli Blood cultures done on 07/07 at [facility] grew Bacteroides. Identification is pending Due to persistent fevers and repeat cultures being positive after decisions Infectious Disease I repeated CT scan of chest abdomen pelvis 07/10 CT scan showed IMPRESSION: 1. New groundglass opacities in right lung upper lobe, consistent with pneumonia. 2. Small pleural effusions. 3. Distended gallbladder with gallstone suspicious for acute cholecystitis. 4. Worsened liver mass near the gallbladder, consistent with abscess. Lower extremity Dopplers are negative for DVT General surgery was consulted and after discussion with General surgery, we requested IR for a ultrasound-guided abscess drainage and cholecystostomy tube placement 07/12 patient underwent cholecystostomy drain placement. Ultrasound at that time confirmed findings of acute cholecystitis with distended gallbladder full of stones. Fluid was sent for cultures The liver abscess was small and not easily accessible with needle hence no intervention was done Patient now is clinically doing better with improvement of tachycardia fevers and normalization of WBC Continue the drainage and IV Unasyn Hold diuretics Clear liquid diet advance as per General surgery Infectious disease and General surgery are following following Continue care per rehab services aide (2) Right lower lobe pneumonia: Qualifiers: Pneumonia type: due to unspecified organism Qualified Code(s): J18.9 - Pneumonia, unspecified organism Code(s): J18.9 - Pneumonia, unspecified organism Status: Acute Assessment and Plan: Continue antibiotics as above, supplemental oxygen via high-flow therapy -respiratory panel will has been ordered and negative Add incentive spirometry Patient down to 2 L nasal cannula. Hold further Lasix Continue care per rehab services aide (3) Abnormal computed tomography of gallbladder: Code(s): R93.2 - Abnormal findings on diagnostic imaging of liver and biliary tract Status: Acute Assessment and Plan: See above (4) Congestive heart failure: Code(s): I50.9 - Heart failure, unspecified Status: Acute Assessment and Plan: Chest x-ray shows diffuse bilateral infiltrates. Patient had elevated BNP on presentation Echocardiogram shows EF of 25-30% Patient received Lasix for last couple days. Will hold today Continue care per rehab services aide (5) Thrombocytopenia: Code(s): D69.6 - Thrombocytopenia, unspecified Status: Acute Assessment and Plan: Multifactorial thrombocytopenia likely secondary to sepsis. I will transfuse 2 units of platelets in anticipation of invasive procedure. Lovenox some and patient is on SCDs 07/11 patient was given 2 units platelets for cholecystostomy placement Monitor (6) Electrolyte abnormality: Code(s): E87.8 - Other disorders of electrolyte and fluid balance, not elsewhere classified Status: Acute Assessment and Plan: Potassium and calcium replacement ordered Plan DVT prophylaxis: Lovenox is on hold due to thrombocytopenia, SCDs Stress ulcer prophylaxis: Ppi Nutrition: Clear liquid diet. Advance as per General surgery Code Status: Full code IS and Up in chair Discussed with patient and his spouse at bedside and updated them with patient's condition and plan of care. I answered all questions Subjective Date/time seen: 07/12/25 16:53 Interval history: Comfortable at bedside, now on 2 liters oxygen by nasal cannula Continue antibiotics per ID Review of Systems Review of Systems: 12 systems were reviewed with pertinent positives and negatives per HPI. Except as documented in the HPI, all other systems were reviewed and are negative. All systems reviewed & are unremarkable except as noted in HPI and below Exam Narrative: General: Pleasant gentleman in no acute distress HEENT:? Pupils equal reactive, sclerae is clear, moist oral mucosa Neck:? Supple Respiratory:? Coarse breath sounds bilaterally, decreased at bases, no wheezing, no significant crackles Cardiac:? S1-S2 normal, regular rate and rhythm Abdomen:? Soft, nontender, nondistended with normoactive bowel sounds, cholecystostomy drain in the right upper quadrant with dark liquid output Extremities:? No significant edema Neuro:? Patient awake, alert, oriented x3, nonfocal, answers to questions appropriately and follows simple commands in all extremities Skin:? Warm and dry, no skin lesions noted Psych:? Normal mentation and affect Const: Other: Mildly ill-appearing, obese, appears stated age HENMT: Other: Mucous membranes are dry, upper and lower dentures in place Eyes: Other: Mild scleral icterus, no conjunctival pallor, pupils are equal and reactive Neck: Other: No JVD, no lymphadenopathy, right IJ present Resp: Other: Clear to auscultation bilaterally, no increased work of breathing Cardio: Other: Sinus tachycardia, 2+ bilateral radial pedal pulses, no JVD, no murmur GI: Other: Distended, nontender to palpation, hypoactive bowel sounds, no organomegaly : Other: Ac catheter in place with cloudy dark kirsty urine Skin: Other: Warm to touch, mild jaundice, no pallor Neuro: Other: Alert oriented x4, speech is clear, no facial asymmetry, no localizing neurologic deficits noted during the course of conversation Extrem: Other: No clubbing, cyanosis or edema, moves all extremities equally Psych: Other: Appropriate mood and affect, pleasant and cooperative, judgment insight intact Objective Data Vital Signs Vital Signs: Vital Signs - 24 hr 07/11/25 18:00 07/11/25 18:00 07/11/25 20:00 Temperature 100.1 F H Pulse Rate 79 79 Respiratory Rate 19 Blood Pressure 109/77 Pulse Oximetry 95 95 Oxygen Delivery High Flow Nasal Cannula Oxygen Flow Rate 5 Fraction of Inspired Oxygen 07/11/25 20:00 07/11/25 20:00 07/11/25 20:03 Temperature 99.1 F Pulse Rate 76 79 78 Respiratory Rate 17 Blood Pressure 103/75 Pulse Oximetry 96 Oxygen Delivery Oxygen Flow Rate Fraction of Inspired Oxygen 07/11/25 20:24 07/11/25 22:00 07/11/25 22:00 Temperature 98.6 F Pulse Rate 71 67 67 Respiratory Rate 20 14 Blood Pressure 97/66 L Pulse Oximetry 96 96 Oxygen Delivery High Flow Nasal Cannula Oxygen Flow Rate 5 Fraction of Inspired Oxygen 40 07/12/25 00:00 07/12/25 00:00 07/12/25 00:00 Temperature 98.1 F Pulse Rate 59 L 59 L Respiratory Rate 14 Blood Pressure 101/71 Pulse Oximetry 96 96 Oxygen Delivery High Flow Nasal Cannula Oxygen Flow Rate 5 Fraction of Inspired Oxygen 07/12/25 02:00 07/12/25 02:00 07/12/25 04:00 Temperature 98.0 F 98.1 F Pulse Rate 60 60 59 L Respiratory Rate 12 14 Blood Pressure 120/78 114/73 Pulse Oximetry 100 96 Oxygen Delivery Oxygen Flow Rate Fraction of Inspired Oxygen 07/12/25 04:00 07/12/25 04:00 07/12/25 05:40 Temperature Pulse Rate 60 62 Respiratory Rate 20 Blood Pressure Pulse Oximetry 95 96 Oxygen Delivery Nasal Cannula Nasal Cannula Oxygen Flow Rate 3 3 Fraction of Inspired Oxygen 32 07/12/25 06:00 07/12/25 06:00 07/12/25 08:00 Temperature 98.6 F Pulse Rate 60 60 Respiratory Rate 16 Blood Pressure 123/68 Pulse Oximetry 95 97 Oxygen Delivery Nasal Cannula Oxygen Flow Rate 2 Fraction of Inspired Oxygen 07/12/25 08:00 07/12/25 08:00 07/12/25 09:05 Temperature 98.7 F Pulse Rate 67 65 81 Respiratory Rate 13 Blood Pressure 124/84 Pulse Oximetry 97 Oxygen Delivery Oxygen Flow Rate Fraction of Inspired Oxygen 07/12/25 10:00 07/12/25 10:00 07/12/25 12:00 Temperature 99.7 F H Pulse Rate 77 77 Respiratory Rate 13 Blood Pressure 129/80 Pulse Oximetry 95 93 Oxygen Delivery Nasal Cannula Oxygen Flow Rate 1 Fraction of Inspired Oxygen 07/12/25 12:00 07/12/25 12:00 07/12/25 13:57 Temperature 99.9 F H Pulse Rate 68 77 77 Respiratory Rate 15 Blood Pressure 126/84 Pulse Oximetry 95 Oxygen Delivery Oxygen Flow Rate Fraction of Inspired Oxygen Intake/Output Intake/Output: Intake & Output 07/09/25 07/10/25 07/11/25 07/12/25 23:59 23:59 23:59 23:59 Intake Total 1394 1644 2448 1200 Output Total 2200 3400 3325 031 [id number] -264 -6410 -263 250 Meds/Results Medications: Active Medications Generic Name Dose Route Start Last Admin Trade Name Freq PRN Reason Stop Dose Admin Acetaminophen 650 mg 07/06/25 22:57 07/11/25 11:42 Acetaminophen 325 Mg Tablet PO 650 mg Q4H PRN Administration Mild Pain (1-3) or Fever Al Hydrox/Mg Hydrox/Simethicone 30 ml 07/06/25 22:57 Mag Hydrox/Al Hydrox/Simeth 30 Ml Udc PO QID PRN Dyspepsia Artificial Tears 1 drop 07/11/25 09:15 07/11/25 18:39 Artificial Tears Ophth Soln 15 Ml Bottle EACH EYE 1 drop QID PRN Administration Dry Eye(s) Bisacodyl 5 mg 07/06/25 22:57 Bisacodyl 5 Mg Tablet Ec PO DAILY PRN Constipation Bisacodyl 10 mg 07/12/25 07:55 Bisacodyl 10 Mg Suppository RECTAL QAM PRN Constipation Dextrose 12.5 gm 07/06/25 23:18 Dextrose 50% 25 Gm/50 Ml Syringe IV PUSH PRN PRN Hypoglycemia Protocol Enoxaparin Sodium 40 mg 07/07/25 09:00 07/08/25 07:47 Enoxaparin 40 Mg/0.4 Ml Syringe SUB-Q Not Given On Hold: 07/08/25 10:03 DAILY XENIA Fluticasone Propionate 1 spray 07/07/25 09:00 07/12/25 09:06 Fluticasone Propionate 0.05% Na Spr 16 Gm Btl (*Bkc) NASAL 1 spray Q12HR XENIA Administration Glucagon 1 mg 07/06/25 23:18 Glucagon For Inj 1 Mg Vial IM PRN PRN Hypoglycemia Protocol Glucose 15 gm 07/06/25 23:18 Glucose Oral Gel 15 Gm Of Glucse In 37.5 Gm Tube PO PRN PRN Hypoglycemia Protocol Dextrose 1,000 mls @ 100 mls/hr 07/06/25 23:18 Dextrose 5% 1,000 Ml IVPB PRN PRN Hypoglycemia Protocol Ibuprofen 400 mg/ Sodium 104 mls @ 208 mls/hr 07/07/25 17:27 07/11/25 15:01 Chloride IVPB Infused Q8H PRN Infusion Pain Rated 4-6 Ampicillin Sodium/Sulbactam 100 mls @ 200 mls/hr 07/11/25 10:30 07/12/25 12:31 Sodium 3 gm/ Sodium Chloride IVPB Infused Q6HR XENIA Infusion Insulin Aspart 3 - 6 units 07/07/25 08:00 07/12/25 11:55 Insulin Aspart (*Bkc) 100 Units/Ml SUB-Q Not Given TIDWM [facility] Protocol Metoprolol Tartrate 12.5 mg 07/10/25 21:00 07/12/25 09:05 Metoprolol Tartrate 12.5 Mg Tablet PO 12.5 mg Q12HR XENIA Administration Morphine Sulfate 2 mg 07/11/25 12:23 Morphine Sulfate (*Crx) 2 Mg/Ml Inj IV PUSH Q2H PRN Pain Rated 7-10 Morphine Sulfate 4 mg 07/11/25 12:23 07/11/25 13:30 Morphine Sulfate (*Crx) 4 Mg/Ml Inj IV PUSH 4 mg ONCE PRN Administration Preprocedure Ondansetron HCl 4 mg 07/06/25 22:57 07/09/25 13:54 Ondansetron Inj 4 Mg/2 Ml Vial IV PUSH 4 mg Q6H PRN Administration Nausea And Vomiting Pantoprazole Sodium 40 mg 07/12/25 09:00 07/12/25 09:05 Pantoprazole Sodium Iv 40 Mg Vial IV PUSH 40 mg QAM XENIA Administration Polyethylene Glycol 17 gm 07/12/25 09:00 07/12/25 09:13 Polyethylene Glycol 3350 17 Gm Powd.Pack PO Not Given QAM XENIA Sodium Chloride 10 ml 07/07/25 14:00 07/12/25 13:45 Central Line Flush IV PUSH 10 ml Q8HR XENIA Administration Sodium Chloride 20 ml 07/07/25 06:38 Central Line Flush IV PUSH PRN PRN after blood draws Radiology Results: ITS Impressions Upper Quadrant Ultrasound 07/09/25 14:30 IMPRESSION: 1. Normal right upper quadrant ultrasound with no intra or extrahepatic biliary ductal dilation. Chest X-Ray 07/10/25 08:10 IMPRESSION: 1. Unchanged elevation right hemidiaphragm opacity bilateral lower lung zones which could represent atelectasis or pneumonia. Venous Doppler Study 07/10/25 15:15 Impression: Negative for DVT. Chest/Abdomen/Pelvis CT 07/10/25 15:44 IMPRESSION: 1. New groundglass opacities in right lung upper lobe, consistent with pneumonia. 2. Small pleural effusions. 3. Distended gallbladder with gallstone suspicious for acute cholecystitis. 4. Worsened liver mass near the gallbladder, consistent with abscess. Cholecystostomy 07/11/25 14:51 IMPRESSION: 1. Successful ultrasound-guided cholecystostomy tube placement. 2. 20 mL bile was sent for aerobic, anaerobic, and fungal cultures. 3. The catheter will be managed by Dr. Sarabia. A catheter cholangiogram may be performed not less than 48 hours after tube placement if clinically indicated to assess cystic duct patency. If cholecystectomy is not eventually performed and the infectious episode has resolved, the tube may be removed over a guidewire, preferably not less than 3 weeks after placement to allow time for a mature catheter tract to form to prevent bile leakage and peritonitis. Labs Labs: Laboratory Results - last 24 hr 07/11/25 07/12/25 07/12/25 20:30 04:12 08:43 WBC 8.7 RBC 3.47 L Hgb 11.0 L Hct 33.0 L MCV 95.1 MCH 31.7 MCHC 33.3 RDW 14.6 H Plt Count 47 L MPV 11.3 H Immature Gran % (Auto) 2.1 H Neut % (Auto) 77.9 H Lymph % (Auto) 6.9 L Walker % (Auto) 11.4 H Eos % (Auto) 1.2 Baso % (Auto) 0.5 Lymph # (Auto) 0.60 L Walker # (Auto) 1.0 H Eos # (Auto) 0.1 Baso # (Auto) 0.0 Abs Immat Gran (auto) 0.18 H Absolute Neuts (auto) 6.8 H Absolute Nucleated RBC 0.000 Band Neutrophils % Not Reportable Nucleated RBC % 0.0 Platelet Estimate Decreased % Immature Plt Fraction 10.1 Anisocytosis 1+ Schistocytes None seen Sodium 141 Potassium 3.5 Chloride 108 H Carbon Dioxide 28 Anion Gap 5 BUN 35 H Creatinine 0.80 Estim Creat Clear Calc 85 Estimated GFR > 60 Glucose 80 POC Capillary Glucose 215 H 122 H Calcium 7.5 L Phosphorus 2.5 Magnesium 2.3 Total Bilirubin 0.7 AST 61 H ALT 68 H Alkaline Phosphatase 102 Total Protein 5.1 L Albumin 2.6 L 07/12/25 07/12/25 11:53 16:32 WBC RBC Hgb Hct MCV MCH MCHC RDW Plt Count MPV Immature Gran % (Auto) Neut % (Auto) Lymph % (Auto) Walker % (Auto) Eos % (Auto) Baso % (Auto) Lymph # (Auto) Walker # (Auto) Eos # (Auto) Baso # (Auto) Abs Immat Gran (auto) Absolute Neuts (auto) Absolute Nucleated RBC Band Neutrophils % Nucleated RBC % Platelet Estimate % Immature Plt Fraction Anisocytosis Schistocytes Sodium Potassium Chloride Carbon Dioxide Anion Gap BUN Creatinine Estim Creat Clear Calc Estimated GFR Glucose POC Capillary Glucose 191 H 121 H Calcium Phosphorus Magnesium Total Bilirubin AST ALT Alkaline Phosphatase Total Protein Albumin Quality VTE Prophylaxis VTE prophylaxis: mechanical ordered
[2025-07-12] MEDS: ACETAMINOPHEN 325 MG TABLET 650 MG PO (20:18)
[2025-07-13] VITALS (20 sets, daily range): BP systolic 125–145; BP diastolic 74–85; PULSE 56–80; RESP 14–21; TEMP 36.8–37.4; O2SAT 92–96
[2025-07-13] MEDS: AMPICILLIN SODIUM/SULBACTAM 3 GM in SODIUM CHLORIDE 0.9% IV 100 ML 200 ML IVPB ×4 (05:33→23:52)
[2025-07-13] MEDS: CENTRAL LINE FLUSH 10 ML IV PUSH ×3 (05:35→22:03)
[2025-07-13 05:46] LABS: Hematocrit 32.8 % (42.0-52.0); Hemoglobin 10.9 g/dL (14.0-18.0); Immature Granulocyte Percent A 2.2 % (0-0.5); Immature Platelet Fraction Pct 11.7 % (0.9-11.2); Lymphocytes Absolute Auto 0.80 K/mm3 (0.9-3.2); Mean Corpuscular HGB Conc 33.2 g/dl (32-36); Mean Corpuscular Hemoglobin 31.7 pg (26-34); Mean Corpuscular Volume 95.3 fl (80-100); Nucleated Red Blood Cells Absolute Auto 0.000 K/mm3 (0.0-0.012); Nucleated Red Blood Cells Perc 0.0 % (0.0-0.2); Platelet Count Result 67 k/mm3 (150-375); Red Blood Count 3.44 M/mm3 (4.6-6.20); White Blood Count 12.1 K/mm3 (4.5-10.0)
[2025-07-13 06:01] LABS: Alanine Aminotransferase 54 U/L (6-50); Albumin Level 2.7 g/dL (3.5-5.1); Alkaline Phosphatase 89 U/L (38-126); Anion Gap 3 mmol/L (4-12); Aspartate Amino Transferase 42 U/L (17-59); Bilirubin,Total 0.9 mg/dL (0.2-1.3); Blood Urea Nitrogen 28 mg/dL (9-20); Calcium 7.7 mg/dL (8.4-10.2); Carbon Dioxide 30 mmol/L (22-30); Chloride 106 mmol/L (98-107); Estimated CRCL calculation 96 ml/min; Estimated Glomerular Filt Rate > 60; Glucose 106 mg/dL (65-110); Magnesium 2.0 mg/dL (1.6-2.3); Potassium 3.4 mmol/L (3.4-5.0); Sodium 139 mmol/L (137-145); Total Protein 5.4 g/dL (6.3-8.2)
[2025-07-13] MEDS: FLUTICASONE PROPIONATE 0.05% NA SPR 16 GM BTL (*BKC) 1 SPRAY NASAL (08:14)
[2025-07-13] MEDS: ARTIFICIAL TEARS OPHTH SOLN 15 ML BOTTLE 1 DROP EACH EYE (08:15)
[2025-07-13] MEDS: PANTOPRAZOLE SODIUM IV 40 MG VIAL IV PUSH (08:17)
[2025-07-13] MEDS: METOPROLOL TARTRATE 12.5 MG TABLET PO ×2 (08:17→22:03)
--- NOTE | 2025-07-13 09:22 | PM.PNCARD ---
Progress Note: A&P Assessment and Plan (1) Acute systolic heart failure: Code(s): I50.21 - Acute systolic (congestive) heart failure Status: Acute (2) HLD (hyperlipidemia): Qualifiers: Hyperlipidemia type: mixed hyperlipidemia Qualified Code(s): E78.2 - Mixed hyperlipidemia Code(s): E78.5 - Hyperlipidemia, unspecified Status: Acute (3) HTN (hypertension): Qualifiers: Hypertension type: primary hypertension Qualified Code(s): I10 - Essential (primary) hypertension Code(s): I10 - Essential (primary) hypertension Status: Acute (4) Elevated troponin: Code(s): R79.89 - Other specified abnormal findings of blood chemistry Status: Acute Plan Diagnosis: New onset acute systolic heart failure with LVEF of 25-30% (prior echo from January/2025 showed normal LVEF of 60% and no significant valvular pathology) Elevated troponin most likely secondary to stress of acute illness; no chest pain Family history of CAD on father side Hypertension Hyperlipidemia Paroxysmal AFib status post ablation in 2023 Septic shock- gram-negative bacteremia; pneumonia; acute cholecystitis, liver abscess status post cholecystostomy tube placement Thrombocytopenia status post platelet transfusion Plan: -Blood pressure is much improved with SBP in the 140s today. Optimize Guideline directed medical therapy. Continue metoprolol 12.5 mg p.o. b.i.d. Add lisinopril 2.5 mg daily today. Add empagliflozin 10 mg daily as tolerated -Ischemia evaluation with cardiac catheterization after he recovers from his acute illness and completion of antibiotic course -Check and replace electrolytes to keep potassium greater than 4 and magnesium greater than 2 -Management of other medical problems per primary team Subjective Date/time seen: 07/13/25 09:22 Interval history: Reason for encounter: New cardiomyopathy with LVEF of 25% Relevant history: 74-year-old male patient admitted with septic shock secondary to acute cholecystitis and liver abscess status post cholecystostomy tube and on IV antibiotics; he has thrombocytopenia; TTE showed depressed LVEF of 25% Relevant history: Patient continues to improve. No chest pain, abdominal pain, dizziness, lightheadedness, or shortness of breath. Review of Systems Cardiovascular: Comments: As per HPI Respiratory: Comments: As per HPI Exam Narrative: General: Alert oriented x3, no acute distress Neck: Supple, no JVD Chest: Bilaterally clear to auscultation, no rales or rhonchi Cardiac: S1, S2 +, regular rate, regular rhythm, no murmurs or rubs Extremities: No pedal edema, no skin rash Neurologic: Alert and oriented x3, no focal neurological deficits Objective Data Vital Signs Vital Signs: Vital Signs - 24 hr 07/12/25 10:00 07/12/25 10:00 07/12/25 12:00 Temperature 37.6 C H Pulse Rate 77 77 Respiratory Rate 13 Blood Pressure 129/80 Pulse Oximetry 95 93 Oxygen Delivery Nasal Cannula Oxygen Flow Rate 1 07/12/25 12:00 07/12/25 12:00 07/12/25 13:57 Temperature 37.7 C H Pulse Rate 68 77 77 Respiratory Rate 15 Blood Pressure 126/84 Pulse Oximetry 95 Oxygen Delivery Oxygen Flow Rate 07/12/25 16:00 07/12/25 16:00 07/12/25 16:00 Temperature Pulse Rate 75 73 Respiratory Rate 20 Blood Pressure 127/84 Pulse Oximetry 93 100 Oxygen Delivery Room Air Oxygen Flow Rate 07/12/25 18:00 07/12/25 20:00 07/12/25 20:00 Temperature Pulse Rate 88 64 Respiratory Rate Blood Pressure Pulse Oximetry 91 Oxygen Delivery Room Air Oxygen Flow Rate 07/12/25 20:00 07/12/25 20:18 07/12/25 20:18 Temperature 37.8 C H 37.8 C H Pulse Rate 67 75 Respiratory Rate 18 Blood Pressure 135/89 Pulse Oximetry 91 Oxygen Delivery Oxygen Flow Rate 07/12/25 20:55 07/12/25 21:00 07/12/25 21:01 Temperature Pulse Rate 58 L Respiratory Rate 14 Blood Pressure Pulse Oximetry 96 79 L 97 Oxygen Delivery Nasal Cannula Room Air Nasal Cannula Oxygen Flow Rate 2 2 07/12/25 21:40 07/12/25 22:00 07/13/25 00:00 Temperature 37.5 C Pulse Rate 57 L 56 L Respiratory Rate Blood Pressure Pulse Oximetry Oxygen Delivery Oxygen Flow Rate 07/13/25 00:00 07/13/25 00:00 07/13/25 02:00 Temperature 37.1 C Pulse Rate 58 L 59 L Respiratory Rate 14 Blood Pressure 132/83 Pulse Oximetry 96 96 Oxygen Delivery Nasal Cannula Oxygen Flow Rate 2 07/13/25 04:00 07/13/25 04:00 07/13/25 04:00 Temperature 37.2 C Pulse Rate 58 L 60 Respiratory Rate 16 Blood Pressure 137/83 Pulse Oximetry 95 95 Oxygen Delivery Nasal Cannula Oxygen Flow Rate 2 07/13/25 06:00 07/13/25 08:00 07/13/25 08:00 Temperature 37.4 C Pulse Rate 62 80 Respiratory Rate 18 Blood Pressure 145/85 H Pulse Oximetry 93 92 Oxygen Delivery Room Air Oxygen Flow Rate 07/13/25 08:00 07/13/25 08:17 07/13/25 08:19 Temperature Pulse Rate 77 80 78 Respiratory Rate 20 Blood Pressure Pulse Oximetry 92 Oxygen Delivery Room Air Oxygen Flow Rate Intake/Output Intake/Output: Intake & Output 07/10/25 07/11/25 07/12/25 07/13/25 23:59 23:59 23:59 23:59 Intake Total 1644 2448 2040 640 Output Total 3400 3325 2100 900 [facility] -[phone] Meds/Results Medications: Active Medications Generic Name Dose Route Start Last Admin Trade Name Freq PRN Reason Stop Dose Admin Acetaminophen 650 mg 07/06/25 22:57 07/12/25 20:18 Acetaminophen 325 Mg Tablet PO 650 mg Q4H PRN Administration Mild Pain (1-3) or Fever Al Hydrox/Mg Hydrox/Simethicone 30 ml 07/06/25 22:57 Mag Hydrox/Al Hydrox/Simeth 30 Ml Udc PO QID PRN Dyspepsia Artificial Tears 1 drop 07/11/25 09:15 07/13/25 08:15 Artificial Tears Ophth Soln 15 Ml Bottle EACH EYE 1 drop QID PRN Administration Dry Eye(s) Bisacodyl 5 mg 07/06/25 22:57 Bisacodyl 5 Mg Tablet Ec PO DAILY PRN Constipation Bisacodyl 10 mg 07/12/25 07:55 Bisacodyl 10 Mg Suppository RECTAL QAM PRN Constipation Dextrose 12.5 gm 07/06/25 23:18 Dextrose 50% 25 Gm/50 Ml Syringe IV PUSH PRN PRN Hypoglycemia Protocol Enoxaparin Sodium 40 mg 07/07/25 09:00 07/08/25 07:47 Enoxaparin 40 Mg/0.4 Ml Syringe SUB-Q Not Given On Hold: 07/08/25 10:03 DAILY XENIA Fluticasone Propionate 1 spray 07/07/25 09:00 07/13/25 08:14 Fluticasone Propionate 0.05% Na Spr 16 Gm Btl (*Bkc) NASAL 1 spray Q12HR XENIA Administration Glucagon 1 mg 07/06/25 23:18 Glucagon For Inj 1 Mg Vial IM PRN PRN Hypoglycemia Protocol Glucose 15 gm 07/06/25 23:18 Glucose Oral Gel 15 Gm Of Glucse In 37.5 Gm Tube PO PRN PRN Hypoglycemia Protocol Dextrose 1,000 mls @ 100 mls/hr 07/06/25 23:18 Dextrose 5% 1,000 Ml IVPB PRN PRN Hypoglycemia Protocol Ibuprofen 400 mg/ Sodium 104 mls @ 208 mls/hr 07/07/25 17:27 07/11/25 15:01 Chloride IVPB Infused Q8H PRN Infusion Pain Rated 4-6 Ampicillin Sodium/Sulbactam 100 mls @ 200 mls/hr 07/11/25 10:30 07/13/25 06:03 Sodium 3 gm/ Sodium Chloride IVPB Infused Q6HR XENIA Infusion Insulin Aspart 3 - 6 units 07/07/25 08:00 07/13/25 08:12 Insulin Aspart (*Bkc) 100 Units/Ml SUB-Q Not Given [facility] Protocol Metoprolol Tartrate 12.5 mg 07/10/25 21:00 07/13/25 08:17 Metoprolol Tartrate 12.5 Mg Tablet PO 12.5 mg Q12HR XENIA Administration Morphine Sulfate 2 mg 07/11/25 12:23 Morphine Sulfate (*Crx) 2 Mg/Ml Inj IV PUSH Q2H PRN Pain Rated 7-10 Morphine Sulfate 4 mg 07/11/25 12:23 07/11/25 13:30 Morphine Sulfate (*Crx) 4 Mg/Ml Inj IV PUSH 4 mg ONCE PRN Administration Preprocedure Ondansetron HCl 4 mg 07/06/25 22:57 07/09/25 13:54 Ondansetron Inj 4 Mg/2 Ml Vial IV PUSH 4 mg Q6H PRN Administration Nausea And Vomiting Pantoprazole Sodium 40 mg 07/12/25 09:00 07/13/25 08:17 Pantoprazole Sodium Iv 40 Mg Vial IV PUSH 40 mg QAM XENIA Administration Polyethylene Glycol 17 gm 07/12/25 09:00 07/13/25 08:17 Polyethylene Glycol 3350 17 Gm Powd.Pack PO Not Given QAM XENIA Sodium Chloride 10 ml 07/07/25 14:00 07/13/25 05:35 Central Line Flush IV PUSH 10 ml Q8HR XENIA Administration Sodium Chloride 20 ml 07/07/25 06:38 Central Line Flush IV PUSH PRN PRN after blood draws Radiology Results: ITS Impressions Upper Quadrant Ultrasound 07/09/25 14:30 IMPRESSION: 1. Normal right upper quadrant ultrasound with no intra or extrahepatic biliary ductal dilation. Chest X-Ray 07/10/25 08:10 IMPRESSION: 1. Unchanged elevation right hemidiaphragm opacity bilateral lower lung zones which could represent atelectasis or pneumonia. Venous Doppler Study 07/10/25 15:15 Impression: Negative for DVT. Chest/Abdomen/Pelvis CT 07/10/25 15:44 IMPRESSION: 1. New groundglass opacities in right lung upper lobe, consistent with pneumonia. 2. Small pleural effusions. 3. Distended gallbladder with gallstone suspicious for acute cholecystitis. 4. Worsened liver mass near the gallbladder, consistent with abscess. Cholecystostomy 07/11/25 14:51 IMPRESSION: 1. Successful ultrasound-guided cholecystostomy tube placement. 2. 20 mL bile was sent for aerobic, anaerobic, and fungal cultures. 3. The catheter will be managed by Dr. Sarabia. A catheter cholangiogram may be performed not less than 48 hours after tube placement if clinically indicated to assess cystic duct patency. If cholecystectomy is not eventually performed and the infectious episode has resolved, the tube may be removed over a guidewire, preferably not less than 3 weeks after placement to allow time for a mature catheter tract to form to prevent bile leakage and peritonitis. Labs Labs: Laboratory Results - last 24 hr 07/12/25 07/12/25 07/12/25 11:53 16:32 20:25 WBC RBC Hgb Hct MCV MCH MCHC RDW Plt Count MPV Immature Gran % (Auto) Neut % (Auto) Lymph % (Auto) [place] % (Auto) Eos % (Auto) Baso % (Auto) Lymph # (Auto) [place] # (Auto) Eos # (Auto) Baso # (Auto) Abs Immat Gran (auto) Absolute Neuts (auto) Absolute Nucleated RBC Nucleated RBC % % Immature Plt Fraction Sodium Potassium Chloride Carbon Dioxide Anion Gap BUN Creatinine Estim Creat Clear Calc Estimated GFR Glucose POC Capillary Glucose 191 H 121 H 129 H Calcium Phosphorus Magnesium Total Bilirubin AST ALT Alkaline Phosphatase Total Protein Albumin 07/13/25 05:25 WBC 12.1 H RBC 3.44 L Hgb 10.9 L Hct 32.8 L MCV 95.3 MCH 31.7 MCHC 33.2 RDW 14.6 H Plt Count 67 L MPV 12.1 H Immature Gran % (Auto) 2.2 H Neut % (Auto) 83.1 H Lymph % (Auto) 6.6 L [place] % (Auto) 6.7 Eos % (Auto) 1.1 Baso % (Auto) 0.3 Lymph # (Auto) 0.80 L [place] # (Auto) 0.8 H Eos # (Auto) 0.1 Baso # (Auto) 0.0 Abs Immat Gran (auto) 0.26 H Absolute Neuts (auto) 10.0 H Absolute Nucleated RBC 0.000 Nucleated RBC % 0.0 % Immature Plt Fraction 11.7 H Sodium 139 Potassium 3.4 Chloride 106 Carbon Dioxide 30 Anion Gap 3 L BUN 28 H Creatinine 0.69 L Estim Creat Clear Calc 96 Estimated GFR > 60 Glucose 106 POC Capillary Glucose Calcium 7.7 L Phosphorus 2.9 Magnesium 2.0 Total Bilirubin 0.9 AST 42 ALT 54 H Alkaline Phosphatase 89 Total Protein 5.4 L Albumin 2.7 L
--- NOTE | 2025-07-13 10:00 | PC.NURSE ---
This patient, Van Young, was transferred to [facility] on 07/13/25 at 0940. Personal belongings sent with patient. Report given to ALFONZO Dent. Appropriate documentation sent with patient. No complaints or concerns voiced at this time. at bedside. Homar Negro RN
--- NOTE | 2025-07-13 10:24 | PM.PNGS ---
Progress Note: A&P Assessment and Plan (1) Acute calculous cholecystitis: Code(s): K80.00 - Calculus of gallbladder with acute cholecystitis without obstruction Status: Acute Assessment and Plan: exam completely benign, tolerating low-fat diet, continue drain and antibiotics Subjective Subjective Date/Time Seen: 07/13/25 10:24 Interval history: feels good, tolerating low-fat diet, no further abdominal pain Review of Systems Review of Systems: All systems reviewed & are unremarkable except as noted in HPI and below Exam Const: General: cooperative, comfortable and no acute distress Resp: Auscultation: clear to auscultation bilaterally Cardio: Rate: regular rate Rhythm: regular rhythm GI: Inspection: normal to inspection and non-distended GI Palp: No abdominal tenderness and Yes Soft to palpation Other: perc cholecystostomy tube with bilious drainage, sludge Objective Data Vital Signs Vital Signs: Vital Signs - 24 hr 07/12/25 12:00 07/12/25 12:00 07/12/25 12:00 Temperature 37.7 C H Pulse Rate 68 77 Respiratory Rate 15 Blood Pressure 126/84 Pulse Oximetry 93 95 Oxygen Delivery Nasal Cannula Oxygen Flow Rate 1 07/12/25 13:57 07/12/25 16:00 07/12/25 16:00 Temperature Pulse Rate 77 75 Respiratory Rate 20 Blood Pressure 127/84 Pulse Oximetry 93 100 Oxygen Delivery Room Air Oxygen Flow Rate 07/12/25 16:00 07/12/25 18:00 07/12/25 20:00 Temperature Pulse Rate 73 88 Respiratory Rate Blood Pressure Pulse Oximetry 91 Oxygen Delivery Room Air Oxygen Flow Rate 07/12/25 20:00 07/12/25 20:00 07/12/25 20:18 Temperature 37.8 C H 37.8 C H Pulse Rate 64 67 Respiratory Rate 18 Blood Pressure 135/89 Pulse Oximetry 91 Oxygen Delivery Oxygen Flow Rate 07/12/25 20:18 07/12/25 20:55 07/12/25 21:00 Temperature Pulse Rate 75 58 L Respiratory Rate 14 Blood Pressure Pulse Oximetry 96 79 L Oxygen Delivery Nasal Cannula Room Air Oxygen Flow Rate 2 07/12/25 21:01 07/12/25 21:40 07/12/25 22:00 Temperature 37.5 C Pulse Rate 57 L Respiratory Rate Blood Pressure Pulse Oximetry 97 Oxygen Delivery Nasal Cannula Oxygen Flow Rate 2 07/13/25 00:00 07/13/25 00:00 07/13/25 00:00 Temperature 37.1 C Pulse Rate 56 L 58 L Respiratory Rate 14 Blood Pressure 132/83 Pulse Oximetry 96 96 Oxygen Delivery Nasal Cannula Oxygen Flow Rate 2 07/13/25 02:00 07/13/25 04:00 07/13/25 04:00 Temperature 37.2 C Pulse Rate 59 L 58 L Respiratory Rate 16 Blood Pressure 137/83 Pulse Oximetry 95 95 Oxygen Delivery Nasal Cannula Oxygen Flow Rate 2 07/13/25 04:00 07/13/25 06:00 07/13/25 08:00 Temperature 37.4 C Pulse Rate 60 62 80 Respiratory Rate 18 Blood Pressure 145/85 H Pulse Oximetry 93 Oxygen Delivery Oxygen Flow Rate 07/13/25 08:00 07/13/25 08:00 07/13/25 08:17 Temperature Pulse Rate 77 80 Respiratory Rate Blood Pressure Pulse Oximetry 92 Oxygen Delivery Room Air Oxygen Flow Rate 07/13/25 08:19 07/13/25 09:58 07/13/25 10:00 Temperature Pulse Rate 78 68 Respiratory Rate 20 Blood Pressure Pulse Oximetry 92 Oxygen Delivery Room Air Room Air Oxygen Flow Rate Intake/Output Intake/Output: Intake & Output 07/10/25 07/11/25 07/12/25 07/13/25 23:59 23:59 23:59 23:59 Intake Total 1644 2448 2040 640 Output Total 3400 3325 2100 900 [facility] -1756 -[phone] -60 -260 Meds/Results Medications: Active Medications Generic Name Dose Route Start Last Admin Trade Name Freq PRN Reason Stop Dose Admin Acetaminophen 650 mg 07/06/25 22:57 07/12/25 20:18 Acetaminophen 325 Mg Tablet PO 650 mg Q4H PRN Administration Mild Pain (1-3) or Fever Al Hydrox/Mg Hydrox/Simethicone 30 ml 07/06/25 22:57 Mag Hydrox/Al Hydrox/Simeth 30 Ml Udc PO QID PRN Dyspepsia Artificial Tears 1 drop 07/11/25 09:15 07/13/25 08:15 Artificial Tears Ophth Soln 15 Ml Bottle EACH EYE 1 drop QID PRN Administration Dry Eye(s) Bisacodyl 5 mg 07/06/25 22:57 Bisacodyl 5 Mg Tablet Ec PO DAILY PRN Constipation Bisacodyl 10 mg 07/12/25 07:55 Bisacodyl 10 Mg Suppository RECTAL QAM PRN Constipation Dextrose 12.5 gm 07/06/25 23:18 Dextrose 50% 25 Gm/50 Ml Syringe IV PUSH PRN PRN Hypoglycemia Protocol Enoxaparin Sodium 40 mg 07/07/25 09:00 07/08/25 07:47 Enoxaparin 40 Mg/0.4 Ml Syringe SUB-Q Not Given On Hold: 07/08/25 10:03 DAILY XENIA Fluticasone Propionate 1 spray 07/07/25 09:00 07/13/25 08:14 Fluticasone Propionate 0.05% Na Spr 16 Gm Btl (*Bkc) NASAL 1 spray Q12HR XENIA Administration Glucagon 1 mg 07/06/25 23:18 Glucagon For Inj 1 Mg Vial IM PRN PRN Hypoglycemia Protocol Glucose 15 gm 07/06/25 23:18 Glucose Oral Gel 15 Gm Of Glucse In 37.5 Gm Tube PO PRN PRN Hypoglycemia Protocol Dextrose 1,000 mls @ 100 mls/hr 07/06/25 23:18 Dextrose 5% 1,000 Ml IVPB PRN PRN Hypoglycemia Protocol Ibuprofen 400 mg/ Sodium 104 mls @ 208 mls/hr 07/07/25 17:27 07/11/25 15:01 Chloride IVPB Infused Q8H PRN Infusion Pain Rated 4-6 Ampicillin Sodium/Sulbactam 100 mls @ 200 mls/hr 07/11/25 10:30 07/13/25 06:03 Sodium 3 gm/ Sodium Chloride IVPB Infused Q6HR XENIA Infusion Insulin Aspart 3 - 6 units 07/07/25 08:00 07/13/25 08:12 Insulin Aspart (*Bkc) 100 Units/Ml SUB-Q Not Given [facility] Protocol Lisinopril 2.5 mg 07/13/25 09:30 Lisinopril 2.5 Mg Tablet PO QAM XENIA Metoprolol Tartrate 12.5 mg 07/10/25 21:00 07/13/25 08:17 Metoprolol Tartrate 12.5 Mg Tablet PO 12.5 mg Q12HR XENIA Administration Morphine Sulfate 2 mg 07/11/25 12:23 Morphine Sulfate (*Crx) 2 Mg/Ml Inj IV PUSH Q2H PRN Pain Rated 7-10 Morphine Sulfate 4 mg 07/11/25 12:23 07/11/25 13:30 Morphine Sulfate (*Crx) 4 Mg/Ml Inj IV PUSH 4 mg ONCE PRN Administration Preprocedure Ondansetron HCl 4 mg 07/06/25 22:57 07/09/25 13:54 Ondansetron Inj 4 Mg/2 Ml Vial IV PUSH 4 mg Q6H PRN Administration Nausea And Vomiting Pantoprazole Sodium 40 mg 07/12/25 09:00 07/13/25 08:17 Pantoprazole Sodium Iv 40 Mg Vial IV PUSH 40 mg QAM XENIA Administration Polyethylene Glycol 17 gm 07/12/25 09:00 07/13/25 08:17 Polyethylene Glycol 3350 17 Gm Powd.Pack PO Not Given QAM XENIA Sodium Chloride 10 ml 07/07/25 14:00 07/13/25 05:35 Central Line Flush IV PUSH 10 ml Q8HR XENIA Administration Sodium Chloride 20 ml 07/07/25 06:38 Central Line Flush IV PUSH PRN PRN after blood draws Radiology Results: ITS Impressions Upper Quadrant Ultrasound 07/09/25 14:30 IMPRESSION: 1. Normal right upper quadrant ultrasound with no intra or extrahepatic biliary ductal dilation. Chest X-Ray 07/10/25 08:10 IMPRESSION: 1. Unchanged elevation right hemidiaphragm opacity bilateral lower lung zones which could represent atelectasis or pneumonia. Venous Doppler Study 07/10/25 15:15 Impression: Negative for DVT. Chest/Abdomen/Pelvis CT 07/10/25 15:44 IMPRESSION: 1. New groundglass opacities in right lung upper lobe, consistent with pneumonia. 2. Small pleural effusions. 3. Distended gallbladder with gallstone suspicious for acute cholecystitis. 4. Worsened liver mass near the gallbladder, consistent with abscess. Cholecystostomy 07/11/25 14:51 IMPRESSION: 1. Successful ultrasound-guided cholecystostomy tube placement. 2. 20 mL bile was sent for aerobic, anaerobic, and fungal cultures. 3. The catheter will be managed by Dr. Sarabia. A catheter cholangiogram may be performed not less than 48 hours after tube placement if clinically indicated to assess cystic duct patency. If cholecystectomy is not eventually performed and the infectious episode has resolved, the tube may be removed over a guidewire, preferably not less than 3 weeks after placement to allow time for a mature catheter tract to form to prevent bile leakage and peritonitis. Labs Labs: Laboratory Results - last 24 hr 07/12/25 07/12/25 07/12/25 11:53 16:32 20:25 WBC RBC Hgb Hct MCV MCH MCHC RDW Plt Count MPV Immature Gran % (Auto) Neut % (Auto) Lymph % (Auto) [place] % (Auto) Eos % (Auto) Baso % (Auto) Lymph # (Auto) [place] # (Auto) Eos # (Auto) Baso # (Auto) Abs Immat Gran (auto) Absolute Neuts (auto) Absolute Nucleated RBC Nucleated RBC % % Immature Plt Fraction Sodium Potassium Chloride Carbon Dioxide Anion Gap BUN Creatinine Estim Creat Clear Calc Estimated GFR Glucose POC Capillary Glucose 191 H 121 H 129 H Calcium Phosphorus Magnesium Total Bilirubin AST ALT Alkaline Phosphatase Total Protein Albumin 07/13/25 05:25 WBC 12.1 H RBC 3.44 L Hgb 10.9 L Hct 32.8 L MCV 95.3 MCH 31.7 MCHC 33.2 RDW 14.6 H Plt Count 67 L MPV 12.1 H Immature Gran % (Auto) 2.2 H Neut % (Auto) 83.1 H Lymph % (Auto) 6.6 L [place] % (Auto) 6.7 Eos % (Auto) 1.1 Baso % (Auto) 0.3 Lymph # (Auto) 0.80 L [place] # (Auto) 0.8 H Eos # (Auto) 0.1 Baso # (Auto) 0.0 Abs Immat Gran (auto) 0.26 H Absolute Neuts (auto) 10.0 H Absolute Nucleated RBC 0.000 Nucleated RBC % 0.0 % Immature Plt Fraction 11.7 H Sodium 139 Potassium 3.4 Chloride 106 Carbon Dioxide 30 Anion Gap 3 L BUN 28 H Creatinine 0.69 L Estim Creat Clear Calc 96 Estimated GFR > 60 Glucose 106 POC Capillary Glucose Calcium 7.7 L Phosphorus 2.9 Magnesium 2.0 Total Bilirubin 0.9 AST 42 ALT 54 H Alkaline Phosphatase 89 Total Protein 5.4 L Albumin 2.7 L
--- NOTE | 2025-07-13 10:54 | PCNFU ---
Nutrition Follow-Up Complete: Inadequate Oral intake as related to pneumonia evidenced by poor po intake reported. Goal:Meet estimated nutritional needs. Patient is progressing towards goal. We will continue current goal. Pt current nutrition is Low Fat. Last recorded weight is 102.9 kg, down from 105.8 kg on admit Bowel Motility: Last reported BM 07/09. Labs Reviewed:BUN 28, Cr 0.69, Alb 2.7 Meds Noted:Lovenox, Miralax, Lopressor, Protonix. Skin: WNL Additional Notes: Patient remains on a Low Fat diet. Oral intake is improving to > 75% of meals. Agree with diet orders. Will monitor weight, labs, skin, diet orders, meds every 5 days.
--- NOTE | 2025-07-13 11:33 | WPDINFPN2 ---
Progress Note: A&P Assessment and Plan (1) Gram negative septicemia: Code(s): A41.50 - Gram-negative sepsis, unspecified Status: Acute (2) Septic shock: Code(s): A41.9 - Sepsis, unspecified organism; R65.21 - Severe sepsis with septic shock Status: Acute (3) Abdominal pain in male: Code(s): R10.9 - Unspecified abdominal pain Status: Acute (4) Diarrhea: Code(s): R19.7 - Diarrhea, unspecified Status: Acute (5) Elevated LFTs: Code(s): R79.89 - Other specified abnormal findings of blood chemistry Status: Acute (6) Acute hypoxic respiratory failure: Code(s): J96.01 - Acute respiratory failure with hypoxia Status: Acute (7) Thrombocytopenia: Code(s): D69.6 - Thrombocytopenia, unspecified Status: Acute (8) Ejection fraction < 50%: Status: Acute Plan # Pansensitive E coli and Bacteroides bacteremia associated with complicated cholecystitis with associated liver abscess. -- immediate follow-up blood cultures 07/08 again with delayed growth of Gram-negative rods. 07/10 blood cultures remain negative. -- now status post IR cholecystostomy tube placement. Procedure cultures pending. # Severe sepsis with septic shock. -- now off of pressors. # Hypoxemia. -- may be a manifestation of sepsis, heart failure with pulmonary edema, or pneumonia. -- improved. # Diminished ejection fraction. # Mild transaminitis. -- improving. Bilirubin normalized. # Thrombocytopenia. -- suspect sepsis versus medication induced. -- slowly improving. Plan: -- to cover for E coli, Bacteroides, and for the possibility that cefepime may be contributing to thrombocytopenia have changed antibiotics to Unasyn. -- continue to follow repeat blood cultures as well as gallbladder drain culture. -- with acute cholecystitis associated with adjacent liver abscess anticipate at least a 28 day course of antibiotics From placement of cholecystostomy tube and based on final blood and a gallbladder culture results. As he continues to clinically improve may be able to complete this course with oral antibiotics, if appropriate, but would plan at least a 14 day course of IV. -- follow platelets. Patient was seen via video telehealth consultation with the assistance of staff. Chart, data, and patient independently reviewed. Patient was located at [facility] while I was located in my [place] office. Received verbal consent from patient. Subjective Date/time seen: 07/13/25 11:33 Interval history: 07/10/2025: T-max of 103? this afternoon with rigors. O2 saturation 98% on 40% high-flow nasal cannula. Off of pressors. White blood cell count normal. GFR greater than 60. 07/11/2025: Repeat CT scan now reaffirm main suspected cholecystitis and with associated liver abscess. Percutaneous drain placed. Continued fever but oxygenation improved. While presentation blood cultures at outside emergency room positive for E coli, presentation cultures at this hospital positive for Bacteroides. 07/12/2025: Afebrile. Last fever at 4:00 p.m. yesterday. Status post cholecystostomy tube placement yesterday. Drainage cultures are pending. He feels significantly better after placement of cholecystostomy tube. 07/13/2025: Afebrile with T-max last 24 hours 100.1 minutes. Comfortable on room air. Continues to feel better. Gallbladder drainage culture 07/11: Negative Gram stain with cultures pending Blood cultures 07/07 at outside hospital: pansensitive E coli. Blood cultures 07/07: Bacteroides Blood cultures 07/08: Growth of Gram-negative rods. Blood cultures 07/10: No growth to date Stool culture 07/08: Negative Cefepime 2 g IV q.12 hours 07/07 -- 07/11 Unasyn 3 g IV q.6 hours 07/11-- Review of Systems Review of Systems: All systems reviewed & are unremarkable except as noted in HPI and below Exam Narrative: Awake and alert and able to answer questions. No longer requiring high-flow nasal cannula. now on room air. No conjunctivitis. Breathing comfortably . Abdomen with some distention. Cholecystostomy tube drainage with chocolate colored liquid output. No evidence of rash. No pruritus. Left IJ present and placed at outside institution. No inflammation at site. Objective Data Vital Signs Vital Signs: Vital Signs - 24 hr 07/12/25 12:00 07/12/25 12:00 07/12/25 12:00 Temperature 99.9 F H Pulse Rate 68 77 Respiratory Rate 15 Blood Pressure 126/84 Pulse Oximetry 93 95 Oxygen Delivery Nasal Cannula Oxygen Flow Rate 1 07/12/25 13:57 07/12/25 16:00 07/12/25 16:00 Temperature Pulse Rate 77 75 Respiratory Rate 20 Blood Pressure 127/84 Pulse Oximetry 93 100 Oxygen Delivery Room Air Oxygen Flow Rate 07/12/25 16:00 07/12/25 18:00 07/12/25 20:00 Temperature Pulse Rate 73 88 Respiratory Rate Blood Pressure Pulse Oximetry 91 Oxygen Delivery Room Air Oxygen Flow Rate 07/12/25 20:00 07/12/25 20:00 07/12/25 20:18 Temperature 100.0 F H 100.1 F H Pulse Rate 64 67 Respiratory Rate 18 Blood Pressure 135/89 Pulse Oximetry 91 Oxygen Delivery Oxygen Flow Rate 07/12/25 20:18 07/12/25 20:55 07/12/25 21:00 Temperature Pulse Rate 75 58 L Respiratory Rate 14 Blood Pressure Pulse Oximetry 96 79 L Oxygen Delivery Nasal Cannula Room Air Oxygen Flow Rate 2 07/12/25 21:01 07/12/25 21:40 07/12/25 22:00 Temperature 99.5 F Pulse Rate 57 L Respiratory Rate Blood Pressure Pulse Oximetry 97 Oxygen Delivery Nasal Cannula Oxygen Flow Rate 2 07/13/25 00:00 07/13/25 00:00 07/13/25 00:00 Temperature 98.7 F Pulse Rate 56 L 58 L Respiratory Rate 14 Blood Pressure 132/83 Pulse Oximetry 96 96 Oxygen Delivery Nasal Cannula Oxygen Flow Rate 2 07/13/25 02:00 07/13/25 04:00 07/13/25 04:00 Temperature 99.0 F Pulse Rate 59 L 58 L Respiratory Rate 16 Blood Pressure 137/83 Pulse Oximetry 95 95 Oxygen Delivery Nasal Cannula Oxygen Flow Rate 2 07/13/25 04:00 07/13/25 06:00 07/13/25 08:00 Temperature 99.4 F Pulse Rate 60 62 80 Respiratory Rate 18 Blood Pressure 145/85 H Pulse Oximetry 93 Oxygen Delivery Oxygen Flow Rate 07/13/25 08:00 07/13/25 08:00 07/13/25 08:17 Temperature Pulse Rate 77 80 Respiratory Rate Blood Pressure Pulse Oximetry 92 Oxygen Delivery Room Air Oxygen Flow Rate 07/13/25 08:19 07/13/25 09:58 07/13/25 10:00 Temperature Pulse Rate 78 68 Respiratory Rate 20 Blood Pressure Pulse Oximetry 92 Oxygen Delivery Room Air Room Air Oxygen Flow Rate Intake/Output Intake/Output: Intake & Output 07/10/25 07/11/25 07/12/2519/25 23:59 23:59 23:59 23:59 Intake Total 4750 0323 9571 640 Output Total 9115 6458 3129 027 [id number] [phone] Meds/Results Medications: Active Medications Generic Name Dose Route Start Last Admin Trade Name Freq PRN Reason Stop Dose Admin Acetaminophen 650 mg 07/06/25 22:57 07/12/25 20:18 Acetaminophen 325 Mg Tablet PO 650 mg Q4H PRN Administration Mild Pain (1-3) or Fever Al Hydrox/Mg Hydrox/Simethicone 30 ml 07/06/25 22:57 Mag Hydrox/Al Hydrox/Simeth 30 Ml Udc PO QID PRN Dyspepsia Artificial Tears 1 drop 07/11/25 09:15 07/13/25 08:15 Artificial Tears Ophth Soln 15 Ml Bottle EACH EYE 1 drop QID PRN Administration Dry Eye(s) Bisacodyl 5 mg 07/06/25 22:57 Bisacodyl 5 Mg Tablet Ec PO DAILY PRN Constipation Bisacodyl 10 mg 07/12/25 07:55 Bisacodyl 10 Mg Suppository RECTAL QAM PRN Constipation Dextrose 12.5 gm 07/06/25 23:18 Dextrose 50% 25 Gm/50 Ml Syringe IV PUSH PRN PRN Hypoglycemia Protocol Enoxaparin Sodium 40 mg 07/07/25 09:00 07/08/25 07:47 Enoxaparin 40 Mg/0.4 Ml Syringe SUB-Q Not Given On Hold: 07/08/25 10:03 DAILY XENIA Fluticasone Propionate 1 spray 07/07/25 09:00 07/13/25 08:14 Fluticasone Propionate 0.05% Na Spr 16 Gm Btl (*Bkc) NASAL 1 spray Q12HR XENIA Administration Glucagon 1 mg 07/06/25 23:18 Glucagon For Inj 1 Mg Vial IM PRN PRN Hypoglycemia Protocol Glucose 15 gm 07/06/25 23:18 Glucose Oral Gel 15 Gm Of Glucse In 37.5 Gm Tube PO PRN PRN Hypoglycemia Protocol Dextrose 1,000 mls @ 100 mls/hr 07/06/25 23:18 Dextrose 5% 1,000 Ml IVPB PRN PRN Hypoglycemia Protocol Ibuprofen 400 mg/ Sodium 104 mls @ 208 mls/hr 07/07/25 17:27 07/11/25 15:01 Chloride IVPB Infused Q8H PRN Infusion Pain Rated 4-6 Ampicillin Sodium/Sulbactam 100 mls @ 200 mls/hr 07/11/25 10:30 07/13/25 10:53 Sodium 3 gm/ Sodium Chloride IVPB 200 mls/hr Q6HR XENIA Administration Insulin Aspart 3 - 6 units 07/07/25 08:00 07/13/25 08:12 Insulin Aspart (*Bkc) 100 Units/Ml SUB-Q Not Given [facility] Protocol Lisinopril 2.5 mg 07/13/25 09:30 07/13/25 10:53 Lisinopril 2.5 Mg Tablet PO 2.5 mg QAM XENIA Administration Metoprolol Tartrate 12.5 mg 07/10/25 21:00 07/13/25 08:17 Metoprolol Tartrate 12.5 Mg Tablet PO 12.5 mg Q12HR XENIA Administration Morphine Sulfate 2 mg 07/11/25 12:23 Morphine Sulfate (*Crx) 2 Mg/Ml Inj IV PUSH Q2H PRN Pain Rated 7-10 Morphine Sulfate 4 mg 07/11/25 12:23 07/11/25 13:30 Morphine Sulfate (*Crx) 4 Mg/Ml Inj IV PUSH 4 mg ONCE PRN Administration Preprocedure Ondansetron HCl 4 mg 07/06/25 22:57 07/09/25 13:54 Ondansetron Inj 4 Mg/2 Ml Vial IV PUSH 4 mg Q6H PRN Administration Nausea And Vomiting Pantoprazole Sodium 40 mg 07/12/25 09:00 07/13/25 08:17 Pantoprazole Sodium Iv 40 Mg Vial IV PUSH 40 mg QAM XENIA Administration Polyethylene Glycol 17 gm 07/12/25 09:00 07/13/25 08:17 Polyethylene Glycol 3350 17 Gm Powd.Pack PO Not Given QAM XENIA Sodium Chloride 10 ml 07/07/25 14:00 07/13/25 05:35 Central Line Flush IV PUSH 10 ml Q8HR XENIA Administration Sodium Chloride 20 ml 07/07/25 06:38 Central Line Flush IV PUSH PRN PRN after blood draws Radiology Results: ITS Impressions Upper Quadrant Ultrasound 07/09/25 14:30 IMPRESSION: 1. Normal right upper quadrant ultrasound with no intra or extrahepatic biliary ductal dilation. Chest X-Ray 07/10/25 08:10 IMPRESSION: 1. Unchanged elevation right hemidiaphragm opacity bilateral lower lung zones which could represent atelectasis or pneumonia. Venous Doppler Study 07/10/25 15:15 Impression: Negative for DVT. Chest/Abdomen/Pelvis CT 07/10/25 15:44 IMPRESSION: 1. New groundglass opacities in right lung upper lobe, consistent with pneumonia. 2. Small pleural effusions. 3. Distended gallbladder with gallstone suspicious for acute cholecystitis. 4. Worsened liver mass near the gallbladder, consistent with abscess. Cholecystostomy 07/11/25 14:51 IMPRESSION: 1. Successful ultrasound-guided cholecystostomy tube placement. 2. 20 mL bile was sent for aerobic, anaerobic, and fungal cultures. 3. The catheter will be managed by Dr. Sarabia. A catheter cholangiogram may be performed not less than 48 hours after tube placement if clinically indicated to assess cystic duct patency. If cholecystectomy is not eventually performed and the infectious episode has resolved, the tube may be removed over a guidewire, preferably not less than 3 weeks after placement to allow time for a mature catheter tract to form to prevent bile leakage and peritonitis. Labs Labs: Laboratory Results - last 24 hr 07/12/25 07/12/25 07/12/25 11:53 16:32 20:25 WBC RBC Hgb Hct MCV MCH MCHC RDW Plt Count MPV Immature Gran % (Auto) Neut % (Auto) Lymph % (Auto) [place] % (Auto) Eos % (Auto) Baso % (Auto) Lymph # (Auto) [place] # (Auto) Eos # (Auto) Baso # (Auto) Abs Immat Gran (auto) Absolute Neuts (auto) Absolute Nucleated RBC Nucleated RBC % % Immature Plt Fraction Sodium Potassium Chloride Carbon Dioxide Anion Gap BUN Creatinine Estim Creat Clear Calc Estimated GFR Glucose POC Capillary Glucose 191 H 121 H 129 H Calcium Phosphorus Magnesium Total Bilirubin AST ALT Alkaline Phosphatase Total Protein Albumin 07/13/25 05:25 WBC 12.1 H RBC 3.44 L Hgb 10.9 L Hct 32.8 L MCV 95.3 MCH 31.7 MCHC 33.2 RDW 14.6 H Plt Count 67 L MPV 12.1 H Immature Gran % (Auto) 2.2 H Neut % (Auto) 83.1 H Lymph % (Auto) 6.6 L [place] % (Auto) 6.7 Eos % (Auto) 1.1 Baso % (Auto) 0.3 Lymph # (Auto) 0.80 L [place] # (Auto) 0.8 H Eos # (Auto) 0.1 Baso # (Auto) 0.0 Abs Immat Gran (auto) 0.26 H Absolute Neuts (auto) 10.0 H Absolute Nucleated RBC 0.000 Nucleated RBC % 0.0 % Immature Plt Fraction 11.7 H Sodium 139 Potassium 3.4 Chloride 106 Carbon Dioxide 30 Anion Gap 3 L BUN 28 H Creatinine 0.69 L Estim Creat Clear Calc 96 Estimated GFR > 60 Glucose 106 POC Capillary Glucose Calcium 7.7 L Phosphorus 2.9 Magnesium 2.0 Total Bilirubin 0.9 AST 42 ALT 54 H Alkaline Phosphatase 89 Total Protein 5.4 L Albumin 2.7 L
--- NOTE | 2025-07-13 14:46 | PM.IMPN ---
Progress Note: A&P Assessment and Plan (1) Septic shock: Code(s): A41.9 - Sepsis, unspecified organism; R65.21 - Severe sepsis with septic shock Status: Acute Assessment and Plan: Pansensitive E coli and bacteriodes bacteremia CT chest showed pneumonia RUL with acute cholecystitis Lower extremity Dopplers are negative for DVT Continue Abx, ID and Gen surgery follorwing (2) Right lower lobe pneumonia: Qualifiers: Pneumonia type: due to unspecified organism Qualified Code(s): J18.9 - Pneumonia, unspecified organism Code(s): J18.9 - Pneumonia, unspecified organism Status: Acute Assessment and Plan: Now on room air -respiratory panel will has been ordered and negative Add incentive spirometry Now on room air Continueabx ,ID following (3) Abnormal computed tomography of gallbladder: Code(s): R93.2 - Abnormal findings on diagnostic imaging of liver and biliary tract Status: Acute Assessment and Plan: See above (4) Congestive heart failure: Code(s): I50.9 - Heart failure, unspecified Status: Acute Assessment and Plan: Chest x-ray shows diffuse bilateral infiltrates. Patient had elevated BNP on presentation Echocardiogram shows EF of 25-30% Patient received Lasix for last couple days. Will hold today Cardiology following adn planning for cardiac cath (5) Thrombocytopenia: Code(s): D69.6 - Thrombocytopenia, unspecified Status: Acute Assessment and Plan: Multifactorial thrombocytopenia likely secondary to sepsis. I will transfuse 2 units of platelets in anticipation of invasive procedure. Lovenox some and patient is on SCDs 07/11 patient was given 2 units platelets for cholecystostomy placement Plts 67 today (6) Electrolyte abnormality: Code(s): E87.8 - Other disorders of electrolyte and fluid balance, not elsewhere classified Status: Acute Assessment and Plan: Potassium and calcium replacement ordered Plan Acute cholecystitis on Cholecystostomy drainage Continue antibiotics above CT AP reviewed Blood culture positive for pansensitive E coli ad Bacteriodes, monitor ID and Gen surgery following DVT prophylaxis: Lovenox is on hold due to thrombocytopenia, SCDs Stress ulcer prophylaxis: Ppi Nutrition: Clear liquid diet. Advance as per General surgery Code Status: Full code Subjective Date/time seen: 07/13/25 14:46 Interval history: Comfortable at bedside and noted marked improvement Now on room air Review of Systems Review of Systems: 12 systems were reviewed with pertinent positives and negatives per HPI. Except as documented in the HPI, all other systems were reviewed and are negative. All systems reviewed & are unremarkable except as noted in HPI and below Exam Narrative: General: Pleasant gentleman in no acute distress HEENT:? Pupils equal reactive, sclerae is clear, moist oral mucosa Neck:? Supple Respiratory:? Coarse breath sounds bilaterally, decreased at bases, no wheezing, no significant crackles Cardiac:? S1-S2 normal, regular rate and rhythm Abdomen:? Soft, nontender, nondistended with normoactive bowel sounds, cholecystostomy drain in the right upper quadrant with dark liquid output Extremities:? No significant edema Neuro:? Patient awake, alert, oriented x3, nonfocal, answers to questions appropriately and follows simple commands in all extremities Skin:? Warm and dry, no skin lesions noted Psych:? Normal mentation and affect Const: Other: Mildly ill-appearing, obese, appears stated age HENMT: Other: Mucous membranes are dry, upper and lower dentures in place Eyes: Other: Mild scleral icterus, no conjunctival pallor, pupils are equal and reactive Neck: Other: No JVD, no lymphadenopathy, right IJ present Resp: Other: Clear to auscultation bilaterally, no increased work of breathing Cardio: Other: Sinus tachycardia, 2+ bilateral radial pedal pulses, no JVD, no murmur GI: Other: Distended, nontender to palpation, hypoactive bowel sounds, no organomegaly : Other: Ac catheter in place with cloudy dark kirsty urine Skin: Other: Warm to touch, mild jaundice, no pallor Neuro: Other: Alert oriented x4, speech is clear, no facial asymmetry, no localizing neurologic deficits noted during the course of conversation Extrem: Other: No clubbing, cyanosis or edema, moves all extremities equally Psych: Other: Appropriate mood and affect, pleasant and cooperative, judgment insight intact Objective Data Vital Signs Vital Signs: Vital Signs - 24 hr 07/12/25 16:00 07/12/25 16:00 07/12/25 16:00 Temperature Pulse Rate 75 73 Respiratory Rate 20 Blood Pressure 127/84 Pulse Oximetry 93 100 Oxygen Delivery Room Air Oxygen Flow Rate 07/12/25 18:00 07/12/25 20:00 07/12/25 20:00 Temperature Pulse Rate 88 64 Respiratory Rate Blood Pressure Pulse Oximetry 91 Oxygen Delivery Room Air Oxygen Flow Rate 07/12/25 20:00 07/12/25 20:18 07/12/25 20:18 Temperature 100.0 F H 100.1 F H Pulse Rate 67 75 Respiratory Rate 18 Blood Pressure 135/89 Pulse Oximetry 91 Oxygen Delivery Oxygen Flow Rate 07/12/25 20:55 07/12/25 21:00 07/12/25 21:01 Temperature Pulse Rate 58 L Respiratory Rate 14 Blood Pressure Pulse Oximetry 96 79 L 97 Oxygen Delivery Nasal Cannula Room Air Nasal Cannula Oxygen Flow Rate 2 2 07/12/25 21:40 07/12/25 22:00 07/13/25 00:00 Temperature 99.5 F Pulse Rate 57 L 56 L Respiratory Rate Blood Pressure Pulse Oximetry Oxygen Delivery Oxygen Flow Rate 07/13/25 00:00 07/13/25 00:00 07/13/25 02:00 Temperature 98.7 F Pulse Rate 58 L 59 L Respiratory Rate 14 Blood Pressure 132/83 Pulse Oximetry 96 96 Oxygen Delivery Nasal Cannula Oxygen Flow Rate 2 07/13/25 04:00 07/13/25 04:00 07/13/25 04:00 Temperature 99.0 F Pulse Rate 58 L 60 Respiratory Rate 16 Blood Pressure 137/83 Pulse Oximetry 95 95 Oxygen Delivery Nasal Cannula Oxygen Flow Rate 2 07/13/25 06:00 07/13/25 08:00 07/13/25 08:00 Temperature 99.4 F Pulse Rate 62 80 Respiratory Rate 18 Blood Pressure 145/85 H Pulse Oximetry 93 92 Oxygen Delivery Room Air Oxygen Flow Rate 07/13/25 08:00 07/13/25 08:17 07/13/25 08:19 Temperature Pulse Rate 77 80 78 Respiratory Rate 20 Blood Pressure Pulse Oximetry 92 Oxygen Delivery Room Air Oxygen Flow Rate 07/13/25 09:58 07/13/25 10:00 07/13/25 11:41 Temperature 98.3 F Pulse Rate 68 69 Respiratory Rate 18 Blood Pressure 144/82 H Pulse Oximetry 96 Oxygen Delivery Room Air Oxygen Flow Rate 07/13/25 12:00 07/13/25 12:00 Temperature Pulse Rate 72 Respiratory Rate Blood Pressure Pulse Oximetry Oxygen Delivery Room Air Oxygen Flow Rate Intake/Output Intake/Output: Intake & Output 07/10/25 07/11/25 07/12/25 07/13/25 23:59 23:59 23:59 23:59 Intake Total 1644 2448 2040 880 Output Total 3400 3325 2100 1160 [facility] -1756 [phone] Meds/Results Medications: Active Medications Generic Name Dose Route Start Last Admin Trade Name Freq PRN Reason Stop Dose Admin Acetaminophen 650 mg 07/06/25 22:57 07/12/25 20:18 Acetaminophen 325 Mg Tablet PO 650 mg Q4H PRN Administration Mild Pain (1-3) or Fever Al Hydrox/Mg Hydrox/Simethicone 30 ml 07/06/25 22:57 Mag Hydrox/Al Hydrox/Simeth 30 Ml Udc PO QID PRN Dyspepsia Artificial Tears 1 drop 07/11/25 09:15 07/13/25 08:15 Artificial Tears Ophth Soln 15 Ml Bottle EACH EYE 1 drop QID PRN Administration Dry Eye(s) Bisacodyl 5 mg 07/06/25 22:57 Bisacodyl 5 Mg Tablet Ec PO DAILY PRN Constipation Bisacodyl 10 mg 07/12/25 07:55 Bisacodyl 10 Mg Suppository RECTAL QAM PRN Constipation Dextrose 12.5 gm 07/06/25 23:18 Dextrose 50% 25 Gm/50 Ml Syringe IV PUSH PRN PRN Hypoglycemia Protocol Enoxaparin Sodium 40 mg 07/07/25 09:00 07/08/25 07:47 Enoxaparin 40 Mg/0.4 Ml Syringe SUB-Q Not Given On Hold: 07/08/25 10:03 DAILY XENIA Fluticasone Propionate 1 spray 07/07/25 09:00 07/13/25 08:14 Fluticasone Propionate 0.05% Na Spr 16 Gm Btl (*Bkc) NASAL 1 spray Q12HR XENIA Administration Glucagon 1 mg 07/06/25 23:18 Glucagon For Inj 1 Mg Vial IM PRN PRN Hypoglycemia Protocol Glucose 15 gm 07/06/25 23:18 Glucose Oral Gel 15 Gm Of Glucse In 37.5 Gm Tube PO PRN PRN Hypoglycemia Protocol Dextrose 1,000 mls @ 100 mls/hr 07/06/25 23:18 Dextrose 5% 1,000 Ml IVPB PRN PRN Hypoglycemia Protocol Ibuprofen 400 mg/ Sodium 104 mls @ 208 mls/hr 07/07/25 17:27 07/11/25 15:01 Chloride IVPB Infused Q8H PRN Infusion Pain Rated 4-6 Ampicillin Sodium/Sulbactam 100 mls @ 200 mls/hr 07/11/25 10:30 07/13/25 10:53 Sodium 3 gm/ Sodium Chloride IVPB 200 mls/hr Q6HR XENIA Administration Insulin Aspart 3 - 6 units 07/07/25 08:00 07/13/25 12:31 Insulin Aspart (*Bkc) 100 Units/Ml SUB-Q Not Given TIDWM [facility] Protocol Lisinopril 2.5 mg 07/13/25 09:30 07/13/25 10:53 Lisinopril 2.5 Mg Tablet PO 2.5 mg QAM XENIA Administration Metoprolol Tartrate 12.5 mg 07/10/25 21:00 07/13/25 08:17 Metoprolol Tartrate 12.5 Mg Tablet PO 12.5 mg Q12HR XENIA Administration Morphine Sulfate 2 mg 07/11/25 12:23 Morphine Sulfate (*Crx) 2 Mg/Ml Inj IV PUSH Q2H PRN Pain Rated 7-10 Morphine Sulfate 4 mg 07/11/25 12:23 07/11/25 13:30 Morphine Sulfate (*Crx) 4 Mg/Ml Inj IV PUSH 4 mg ONCE PRN Administration Preprocedure Ondansetron HCl 4 mg 07/06/25 22:57 07/09/25 13:54 Ondansetron Inj 4 Mg/2 Ml Vial IV PUSH 4 mg Q6H PRN Administration Nausea And Vomiting Pantoprazole Sodium 40 mg 07/12/25 09:00 07/13/25 08:17 Pantoprazole Sodium Iv 40 Mg Vial IV PUSH 40 mg QAM XENIA Administration Polyethylene Glycol 17 gm 07/12/25 09:00 07/13/25 08:17 Polyethylene Glycol 3350 17 Gm Powd.Pack PO Not Given QAM XENIA Sodium Chloride 10 ml 07/07/25 14:00 07/13/25 12:31 Central Line Flush IV PUSH 10 ml Q8HR XENIA Administration Sodium Chloride 20 ml 07/07/25 06:38 Central Line Flush IV PUSH PRN PRN after blood draws Radiology Results: ITS Impressions Upper Quadrant Ultrasound 07/09/25 14:30 IMPRESSION: 1. Normal right upper quadrant ultrasound with no intra or extrahepatic biliary ductal dilation. Chest X-Ray 07/10/25 08:10 IMPRESSION: 1. Unchanged elevation right hemidiaphragm opacity bilateral lower lung zones which could represent atelectasis or pneumonia. Venous Doppler Study 07/10/25 15:15 Impression: Negative for DVT. Chest/Abdomen/Pelvis CT 07/10/25 15:44 IMPRESSION: 1. New groundglass opacities in right lung upper lobe, consistent with pneumonia. 2. Small pleural effusions. 3. Distended gallbladder with gallstone suspicious for acute cholecystitis. 4. Worsened liver mass near the gallbladder, consistent with abscess. Cholecystostomy 07/11/25 14:51 IMPRESSION: 1. Successful ultrasound-guided cholecystostomy tube placement. 2. 20 mL bile was sent for aerobic, anaerobic, and fungal cultures. 3. The catheter will be managed by Dr. Sarabia. A catheter cholangiogram may be performed not less than 48 hours after tube placement if clinically indicated to assess cystic duct patency. If cholecystectomy is not eventually performed and the infectious episode has resolved, the tube may be removed over a guidewire, preferably not less than 3 weeks after placement to allow time for a mature catheter tract to form to prevent bile leakage and peritonitis. Labs Labs: Laboratory Results - last 24 hr 07/12/25 07/12/25 07/13/25 16:32 20:25 05:25 WBC 12.1 H RBC 3.44 L Hgb 10.9 L Hct 32.8 L MCV 95.3 MCH 31.7 MCHC 33.2 RDW 14.6 H Plt Count 67 L MPV 12.1 H Immature Gran % (Auto) 2.2 H Neut % (Auto) 83.1 H Lymph % (Auto) 6.6 L [place] % (Auto) 6.7 Eos % (Auto) 1.1 Baso % (Auto) 0.3 Lymph # (Auto) 0.80 L [place] # (Auto) 0.8 H Eos # (Auto) 0.1 Baso # (Auto) 0.0 Abs Immat Gran (auto) 0.26 H Absolute Neuts (auto) 10.0 H Absolute Nucleated RBC 0.000 Nucleated RBC % 0.0 % Immature Plt Fraction 11.7 H Sodium 139 Potassium 3.4 Chloride 106 Carbon Dioxide 30 Anion Gap 3 L BUN 28 H Creatinine 0.69 L Estim Creat Clear Calc 96 Estimated GFR > 60 Glucose 106 POC Capillary Glucose 121 H 129 H Calcium 7.7 L Phosphorus 2.9 Magnesium 2.0 Total Bilirubin 0.9 AST 42 ALT 54 H Alkaline Phosphatase 89 Total Protein 5.4 L Albumin 2.7 L 07/13/25 12:36 WBC RBC Hgb Hct MCV MCH MCHC RDW Plt Count MPV Immature Gran % (Auto) Neut % (Auto) Lymph % (Auto) [place] % (Auto) Eos % (Auto) Baso % (Auto) Lymph # (Auto) [place] # (Auto) Eos # (Auto) Baso # (Auto) Abs Immat Gran (auto) Absolute Neuts (auto) Absolute Nucleated RBC Nucleated RBC % % Immature Plt Fraction Sodium Potassium Chloride Carbon Dioxide Anion Gap BUN Creatinine Estim Creat Clear Calc Estimated GFR Glucose POC Capillary Glucose 154 H Calcium Phosphorus Magnesium Total Bilirubin AST ALT Alkaline Phosphatase Total Protein Albumin Quality VTE Prophylaxis VTE prophylaxis: mechanical ordered
[2025-07-14] VITALS (21 sets, daily range): BP systolic 119–136; BP diastolic 71–82; PULSE 60–81; RESP 16–20; TEMP 36.8–37.4; O2SAT 91–96
[2025-07-14] MEDS: CENTRAL LINE FLUSH 20 ML IV PUSH (05:18)
[2025-07-14] MEDS: CENTRAL LINE FLUSH 10 ML IV PUSH ×3 (05:18→21:52)
[2025-07-14] MEDS: AMPICILLIN SODIUM/SULBACTAM 3 GM in SODIUM CHLORIDE 0.9% IV 100 ML 200 ML IVPB ×4 (05:28→23:34)
[2025-07-14 05:47] LABS: Hematocrit 31.5 % (42.0-52.0); Hemoglobin 10.6 g/dL (14.0-18.0); Immature Granulocyte Percent A 1.9 % (0-0.5); Lymphocytes Absolute Auto 0.63 K/mm3 (0.9-3.2); Mean Corpuscular HGB Conc 33.7 g/dl (32-36); Mean Corpuscular Hemoglobin 32.1 pg (26-34); Mean Corpuscular Volume 95.5 fl (80-100); Nucleated Red Blood Cells Absolute Auto 0.000 K/mm3 (0.0-0.012); Nucleated Red Blood Cells Perc 0.0 % (0.0-0.2); Platelet Count Result 102 k/mm3 (150-375); Red Blood Count 3.30 M/mm3 (4.6-6.20); White Blood Count 10.6 K/mm3 (4.5-10.0)
[2025-07-14 05:59] LABS: Alanine Aminotransferase 43 U/L (6-50); Albumin Level 2.8 g/dL (3.5-5.1); Alkaline Phosphatase 80 U/L (38-126); Anion Gap 4 mmol/L (4-12); Aspartate Amino Transferase 36 U/L (17-59); Bilirubin,Total 1.0 mg/dL (0.2-1.3); Blood Urea Nitrogen 20 mg/dL (9-20); Calcium 7.5 mg/dL (8.4-10.2); Carbon Dioxide 28 mmol/L (22-30); Chloride 105 mmol/L (98-107); Estimated CRCL calculation 97 ml/min; Estimated Glomerular Filt Rate > 60; Glucose 105 mg/dL (65-110); Magnesium 1.9 mg/dL (1.6-2.3); Potassium 3.2 mmol/L (3.4-5.0); Sodium 137 mmol/L (137-145); Total Protein 5.5 g/dL (6.3-8.2)
[2025-07-14] MEDS: METOPROLOL TARTRATE 12.5 MG TABLET PO ×2 (09:22→21:52)
[2025-07-14] MEDS: PANTOPRAZOLE SODIUM IV 40 MG VIAL IV PUSH (09:23)
[2025-07-14] MEDS: FLUTICASONE PROPIONATE 0.05% NA SPR 16 GM BTL (*BKC) 1 SPRAY NASAL (09:23)
--- NOTE | 2025-07-14 09:58 | PM.PNCARD ---
Progress Note: A&P Assessment and Plan (1) Acute systolic heart failure: Code(s): I50.21 - Acute systolic (congestive) heart failure Status: Acute Plan 74-year-old man with: Cardiovascular history relevant for previous ablation for atrial fibrillation but no other significant cardiac problems. He was found to have significantly depressed LV systolic function in the setting of g negative sepsis related to septic gallbladder and liver abscess. Likely this is a stress cardiomyopathy and he is doing well on medical therapy. As stated above I transitioned him from lisinopril to low-dose of losartan since he takes losartan at home and had previously intolerant to the CANDI inhibitor with coughing. We will follow him with you during this hospitalization. 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 I transition to the patient from lisinopril at was started yesterday to losartan since the [facility] was on his home medical list and he was switched from lisinopril to that agent in the past because of coughing. Exam Const: General: comfortable and no acute distress HENMT: Mouth: Yes moist mucous membranes Eyes: Sclera: sclerae normal Neck: Neck: supple and no JVD Resp: Effort & Inspection: normal respiratory effort Auscultation: clear to auscultation bilaterally Cardio: Rate: regular rate Rhythm: regular rhythm GI: GI Palp: Yes Soft to palpation Auscultation: normal bowel sounds Skin: General skin exam: normal color Neuro: Other: Alert and oriented x3 Extrem: General: normal to inspection Objective Data Vital Signs Vital Signs: Vital Signs - 24 hr 07/13/25 10:00 07/13/25 11:41 07/13/25 12:00 Temperature 36.8 C Pulse Rate 68 69 Respiratory Rate 18 Blood Pressure 144/82 H Pulse Oximetry 96 Oxygen Delivery Room Air 07/13/25 12:00 07/13/25 14:00 07/13/25 16:00 Temperature Pulse Rate 72 71 Respiratory Rate Blood Pressure Pulse Oximetry Oxygen Delivery Room Air 07/13/25 16:00 07/13/25 16:00 07/13/25 17:56 Temperature 37.2 C Pulse Rate 70 68 77 Respiratory Rate 21 H Blood Pressure 125/76 Pulse Oximetry 94 Oxygen Delivery 07/13/25 20:00 07/13/25 20:00 07/13/25 21:19 Temperature 37.1 C Pulse Rate 77 70 77 Respiratory Rate 19 19 Blood Pressure 132/74 Pulse Oximetry 94 94 Oxygen Delivery Room Air 07/13/25 21:37 07/13/25 22:00 07/13/25 22:03 Temperature Pulse Rate 67 67 Respiratory Rate Blood Pressure Pulse Oximetry 93 Oxygen Delivery Room Air 07/13/25 23:43 07/13/25 23:47 07/14/25 00:00 Temperature 37.2 C Pulse Rate 61 61 63 Respiratory Rate 15 15 Blood Pressure 136/74 Pulse Oximetry 95 95 Oxygen Delivery Room Air 07/14/25 02:00 07/14/25 04:00 07/14/25 04:00 Temperature 37.2 C Pulse Rate 65 63 63 Respiratory Rate 18 Blood Pressure 136/72 Pulse Oximetry 91 Oxygen Delivery 07/14/25 04:55 07/14/25 06:00 07/14/25 08:05 Temperature 36.8 C Pulse Rate 63 60 78 Respiratory Rate 18 16 Blood Pressure 119/77 Pulse Oximetry 91 94 Oxygen Delivery Room Air 07/14/25 09:22 Temperature Pulse Rate 70 Respiratory Rate Blood Pressure Pulse Oximetry Oxygen Delivery Intake/Output Intake/Output: Intake & Output 07/11/25 07/12/25 07/13/25 07/14/25 23:59 23:59 23:59 23:59 Intake Total 3588 2040 1170 765 Output Total 3325 2100 1980 665 [facility] -877 -60 -810 100 Meds/Results Medications: Active Medications Generic Name Dose Route Start Last Admin Trade Name Freq PRN Reason Stop Dose Admin Acetaminophen 650 mg 07/06/25 22:57 07/12/25 20:18 Acetaminophen 325 Mg Tablet PO 650 mg Q4H PRN Administration Mild Pain (1-3) or Fever Al Hydrox/Mg Hydrox/Simethicone 30 ml 07/06/25 22:57 Mag Hydrox/Al Hydrox/Simeth 30 Ml Udc PO QID PRN Dyspepsia Artificial Tears 1 drop 07/11/25 09:15 07/13/25 08:15 Artificial Tears Ophth Soln 15 Ml Bottle EACH EYE 1 drop QID PRN Administration Dry Eye(s) Bisacodyl 5 mg 07/06/25 22:57 Bisacodyl 5 Mg Tablet Ec PO DAILY PRN Constipation Bisacodyl 10 mg 07/12/25 07:55 Bisacodyl 10 Mg Suppository RECTAL QAM PRN Constipation Dextrose 12.5 gm 07/06/25 23:18 Dextrose 50% 25 Gm/50 Ml Syringe IV PUSH PRN PRN Hypoglycemia Protocol Enoxaparin Sodium 40 mg 07/07/25 09:00 07/08/25 07:47 Enoxaparin 40 Mg/0.4 Ml Syringe SUB-Q Not Given On Hold: 07/08/25 10:03 DAILY XENIA Fluticasone Propionate 1 spray 07/07/25 09:00 07/14/25 09:23 Fluticasone Propionate 0.05% Na Spr 16 Gm Btl (*Bkc) NASAL 1 spray Q12HR XENIA Administration Glucagon 1 mg 07/06/25 23:18 Glucagon For Inj 1 Mg Vial IM PRN PRN Hypoglycemia Protocol Glucose 15 gm 07/06/25 23:18 Glucose Oral Gel 15 Gm Of Glucse In 37.5 Gm Tube PO PRN PRN Hypoglycemia Protocol Dextrose 1,000 mls @ 100 mls/hr 07/06/25 23:18 Dextrose 5% 1,000 Ml IVPB PRN PRN Hypoglycemia Protocol Ibuprofen 400 mg/ Sodium 104 mls @ 208 mls/hr 07/07/25 17:27 07/11/25 15:01 Chloride IVPB Infused Q8H PRN Infusion Pain Rated 4-6 Ampicillin Sodium/Sulbactam 100 mls @ 200 mls/hr 07/11/25 10:30 07/14/25 05:58 Sodium 3 gm/ Sodium Chloride IVPB Infused Q6HR XENIA Infusion Insulin Aspart 3 - 6 units 07/07/25 08:00 07/14/25 08:26 Insulin Aspart (*Bkc) 100 Units/Ml SUB-Q Not Given TIDWM XENIA Protocol Losartan Potassium 25 mg 07/15/25 09:00 Losartan Potassium 25 Mg Tablet PO DAILY XENIA Metoprolol Tartrate 12.5 mg 07/10/25 21:00 07/14/25 09:22 Metoprolol Tartrate 12.5 Mg Tablet PO 12.5 mg Q12HR XENIA Administration Morphine Sulfate 2 mg 07/11/25 12:23 Morphine Sulfate (*Crx) 2 Mg/Ml Inj IV PUSH Q2H PRN Pain Rated 7-10 Morphine Sulfate 4 mg 07/11/25 12:23 07/11/25 13:30 Morphine Sulfate (*Crx) 4 Mg/Ml Inj IV PUSH 4 mg ONCE PRN Administration Preprocedure Ondansetron HCl 4 mg 07/06/25 22:57 07/09/25 13:54 Ondansetron Inj 4 Mg/2 Ml Vial IV PUSH 4 mg Q6H PRN Administration Nausea And Vomiting Pantoprazole Sodium 40 mg 07/12/25 09:00 07/14/25 09:23 Pantoprazole Sodium Iv 40 Mg Vial IV PUSH 40 mg QAM XENIA Administration Polyethylene Glycol 17 gm 07/12/25 09:00 07/14/25 09:24 Polyethylene Glycol 3350 17 Gm Powd.Pack PO Not Given QAM XENIA Sodium Chloride 10 ml 07/07/25 14:00 07/14/25 05:18 Central Line Flush IV PUSH 10 ml Q8HR XENIA Administration Sodium Chloride 20 ml 07/07/25 06:38 07/14/25 05:18 Central Line Flush IV PUSH 20 ml PRN PRN Administration after blood draws Spironolactone 25 mg 07/14/25 09:50 Spironolactone 25 Mg Tablet PO QAM XENIA Radiology Results: ITS Impressions Upper Quadrant Ultrasound 07/09/25 14:30 IMPRESSION: 1. Normal right upper quadrant ultrasound with no intra or extrahepatic biliary ductal dilation. Chest X-Ray 07/10/25 08:10 IMPRESSION: 1. Unchanged elevation right hemidiaphragm opacity bilateral lower lung zones which could represent atelectasis or pneumonia. Venous Doppler Study 07/10/25 15:15 Impression: Negative for DVT. Chest/Abdomen/Pelvis CT 07/10/25 15:44 IMPRESSION: 1. New groundglass opacities in right lung upper lobe, consistent with pneumonia. 2. Small pleural effusions. 3. Distended gallbladder with gallstone suspicious for acute cholecystitis. 4. Worsened liver mass near the gallbladder, consistent with abscess. Cholecystostomy 07/11/25 14:51 IMPRESSION: 1. Successful ultrasound-guided cholecystostomy tube placement. 2. 20 mL bile was sent for aerobic, anaerobic, and fungal cultures. 3. The catheter will be managed by Dr. Sarabia. A catheter cholangiogram may be performed not less than 48 hours after tube placement if clinically indicated to assess cystic duct patency. If cholecystectomy is not eventually performed and the infectious episode has resolved, the tube may be removed over a guidewire, preferably not less than 3 weeks after placement to allow time for a mature catheter tract to form to prevent bile leakage and peritonitis. Labs Labs: Laboratory Results - last 24 hr 07/13/25 07/13/25 07/13/25 12:36 17:34 19:59 WBC RBC Hgb Hct MCV MCH MCHC RDW Plt Count MPV Immature Gran % (Auto) Neut % (Auto) Lymph % (Auto) [place] % (Auto) Eos % (Auto) Baso % (Auto) Lymph # (Auto) [place] # (Auto) Eos # (Auto) Baso # (Auto) Abs Immat Gran (auto) Absolute Neuts (auto) Absolute Nucleated RBC Nucleated RBC % Sodium Potassium Chloride Carbon Dioxide Anion Gap BUN Creatinine Estim Creat Clear Calc Estimated GFR Glucose POC Capillary Glucose 154 H 128 H 109 H Lactic Acid Calcium Phosphorus Magnesium Total Bilirubin AST ALT Alkaline Phosphatase Total Protein Albumin 07/14/25 07/14/25 05:27 06:48 WBC 10.6 H RBC 3.30 L Hgb 10.6 L Hct 31.5 L MCV 95.5 MCH 32.1 MCHC 33.7 RDW 14.0 Plt Count 102 L D MPV 11.5 H Immature Gran % (Auto) 1.9 H Neut % (Auto) 86.0 H Lymph % (Auto) 5.9 L [place] % (Auto) 5.3 Eos % (Auto) 0.7 Baso % (Auto) 0.2 Lymph # (Auto) 0.63 L [place] # (Auto) 0.6 Eos # (Auto) 0.1 Baso # (Auto) 0.0 Abs Immat Gran (auto) 0.20 H Absolute Neuts (auto) 9.2 H Absolute Nucleated RBC 0.000 Nucleated RBC % 0.0 Sodium 137 Potassium 3.2 L Chloride 105 Carbon Dioxide 28 Anion Gap 4 BUN 20 Creatinine 0.69 L Estim Creat Clear Calc 97 Estimated GFR > 60 Glucose 105 POC Capillary Glucose 107 H Lactic Acid 0.7 Calcium 7.5 L Phosphorus 2.7 Magnesium 1.9 Total Bilirubin 1.0 AST 36 ALT 43 Alkaline Phosphatase 80 Total Protein 5.5 L Albumin 2.8 L
--- NOTE | 2025-07-14 11:37 | PM.IMPN ---
Progress Note: A&P Assessment and Plan (1) Septic shock: Code(s): A41.9 - Sepsis, unspecified organism; R65.21 - Severe sepsis with septic shock Status: Acute Assessment and Plan: Pansensitive E coli and bacteriodes bacteremia CT chest showed pneumonia RUL with acute cholecystitis Lower extremity Dopplers are negative for DVT Continue Abx, ID and Gen surgery follorwing (2) Right lower lobe pneumonia: Qualifiers: Pneumonia type: due to unspecified organism Qualified Code(s): J18.9 - Pneumonia, unspecified organism Code(s): J18.9 - Pneumonia, unspecified organism Status: Acute Assessment and Plan: Now on room air -respiratory panel will has been ordered and negative Add incentive spirometry Now on room air Continue abx ,ID following (3) Abnormal computed tomography of gallbladder: Code(s): R93.2 - Abnormal findings on diagnostic imaging of liver and biliary tract Status: Acute Assessment and Plan: See above (4) Congestive heart failure: Code(s): I50.9 - Heart failure, unspecified Status: Acute Assessment and Plan: Chest x-ray shows diffuse bilateral infiltrates. Patient had elevated BNP on presentation Echocardiogram shows EF of 25-30% COntineu losartan 25mg, Spironolactone and Metoprolol Cardiology recommends outpatient cardiac cath with primary cardiology (5) Thrombocytopenia: Code(s): D69.6 - Thrombocytopenia, unspecified Status: Acute Assessment and Plan: Multifactorial thrombocytopenia likely secondary to sepsis. I will transfuse 2 units of platelets in anticipation of invasive procedure. Lovenox some and patient is on SCDs 07/11 patient was given 2 units platelets for cholecystostomy placement Plts 102 today (6) Electrolyte abnormality: Code(s): E87.8 - Other disorders of electrolyte and fluid balance, not elsewhere classified Status: Acute Assessment and Plan: Potassium and calcium replacement ordered Plan Acute cholecystitis with liver abscess on Cholecystostomy drainage Continue antibiotics above CT AP reviewed Blood culture positive for pansensitive E coli ad Bacteriodes, repeat blood culture still pending Cholecystostomy drainage culture positive for pansensitive E coli and Enterococcus Awaiting ID recs for discharge planning ID and Gen surgery following DVT prophylaxis: Lovenox is on hold due to thrombocytopenia, SCDs Stress ulcer prophylaxis: Ppi Nutrition: low fat diet . Advance as per General surgery Code Status: Full code Subjective Date/time seen: 07/14/25 11:37 Interval history: Comfortable at bedside Cardiology will defers cardiac cath to after completion of abx therapy and patient will follow up with primary cardiology for that Review of Systems Review of Systems: 12 systems were reviewed with pertinent positives and negatives per HPI. Except as documented in the HPI, all other systems were reviewed and are negative. All systems reviewed & are unremarkable except as noted in HPI and below Exam Narrative: General: Pleasant gentleman in no acute distress HEENT:? Pupils equal reactive, sclerae is clear, moist oral mucosa Neck:? Supple Respiratory:? Coarse breath sounds bilaterally, decreased at bases, no wheezing, no significant crackles Cardiac:? S1-S2 normal, regular rate and rhythm Abdomen:? Soft, nontender, nondistended with normoactive bowel sounds, cholecystostomy drain in the right upper quadrant with dark liquid output Extremities:? No significant edema Neuro:? Patient awake, alert, oriented x3, nonfocal, answers to questions appropriately and follows simple commands in all extremities Skin:? Warm and dry, no skin lesions noted Psych:? Normal mentation and affect Const: Other: Mildly ill-appearing, obese, appears stated age HENMT: Other: Mucous membranes are dry, upper and lower dentures in place Eyes: Other: Mild scleral icterus, no conjunctival pallor, pupils are equal and reactive Neck: Other: No JVD, no lymphadenopathy, right IJ present Resp: Other: Clear to auscultation bilaterally, no increased work of breathing Cardio: Other: Sinus tachycardia, 2+ bilateral radial pedal pulses, no JVD, no murmur GI: Other: Distended, nontender to palpation, hypoactive bowel sounds, no organomegaly : Other: Ac catheter in place with cloudy dark kirsty urine Skin: Other: Warm to touch, mild jaundice, no pallor Neuro: Other: Alert oriented x4, speech is clear, no facial asymmetry, no localizing neurologic deficits noted during the course of conversation Extrem: Other: No clubbing, cyanosis or edema, moves all extremities equally Psych: Other: Appropriate mood and affect, pleasant and cooperative, judgment insight intact Objective Data Vital Signs Vital Signs: Vital Signs - 24 hr 07/13/25 11:41 07/13/25 12:00 07/13/25 12:00 Temperature 98.3 F Pulse Rate 69 72 Respiratory Rate 18 Blood Pressure 144/82 H Pulse Oximetry 96 Oxygen Delivery Room Air 07/13/25 14:00 07/13/25 16:00 07/13/25 16:00 Temperature Pulse Rate 71 70 Respiratory Rate Blood Pressure Pulse Oximetry Oxygen Delivery Room Air 07/13/25 16:00 07/13/25 17:56 07/13/25 20:00 Temperature 98.9 F 98.7 F Pulse Rate 68 77 77 Respiratory Rate 21 H 19 Blood Pressure 125/76 132/74 Pulse Oximetry 94 94 Oxygen Delivery 07/13/25 20:00 07/13/25 21:19 07/13/25 21:37 Temperature Pulse Rate 70 77 Respiratory Rate 19 Blood Pressure Pulse Oximetry 94 93 Oxygen Delivery Room Air Room Air 07/13/25 22:00 07/13/25 22:03 07/13/25 23:43 Temperature Pulse Rate 67 67 61 Respiratory Rate 15 Blood Pressure Pulse Oximetry 95 Oxygen Delivery Room Air 07/13/25 23:47 07/14/25 00:00 07/14/25 02:00 Temperature 98.9 F Pulse Rate 61 63 65 Respiratory Rate 15 Blood Pressure 136/74 Pulse Oximetry 95 Oxygen Delivery 07/14/25 04:00 07/14/25 04:00 07/14/25 04:55 Temperature 99.0 F Pulse Rate 63 63 63 Respiratory Rate 18 18 Blood Pressure 136/72 Pulse Oximetry 91 91 Oxygen Delivery Room Air 07/14/25 06:00 07/14/25 08:05 07/14/25 09:22 Temperature 98.2 F Pulse Rate 60 78 70 Respiratory Rate 16 Blood Pressure 119/77 Pulse Oximetry 94 Oxygen Delivery Intake/Output Intake/Output: Intake & Output 07/11/25 07/12/25 07/13/25 07/14/25 23:59 23:59 23:59 23:59 Intake Total 2448 2040 1170 765 Output Total 3325 2100 1980 665 [facility] -877 -60 -810 100 Meds/Results Medications: Active Medications Generic Name Dose Route Start Last Admin Trade Name Freq PRN Reason Stop Dose Admin Acetaminophen 650 mg 07/06/25 22:57 07/12/25 20:18 Acetaminophen 325 Mg Tablet PO 650 mg Q4H PRN Administration Mild Pain (1-3) or Fever Al Hydrox/Mg Hydrox/Simethicone 30 ml 07/06/25 22:57 Mag Hydrox/Al Hydrox/Simeth 30 Ml Udc PO QID PRN Dyspepsia Artificial Tears 1 drop 07/11/25 09:15 07/13/25 08:15 Artificial Tears Ophth Soln 15 Ml Bottle EACH EYE 1 drop QID PRN Administration Dry Eye(s) Bisacodyl 5 mg 07/06/25 22:57 Bisacodyl 5 Mg Tablet Ec PO DAILY PRN Constipation Bisacodyl 10 mg 07/12/25 07:55 Bisacodyl 10 Mg Suppository RECTAL QAM PRN Constipation Dextrose 12.5 gm 07/06/25 23:18 Dextrose 50% 25 Gm/50 Ml Syringe IV PUSH PRN PRN Hypoglycemia Protocol Enoxaparin Sodium 40 mg 07/07/25 09:00 07/08/25 07:47 Enoxaparin 40 Mg/0.4 Ml Syringe SUB-Q Not Given On Hold: 07/08/25 10:03 DAILY [facility] Fluticasone Propionate 1 spray 07/07/25 09:00 07/14/25 09:23 Fluticasone Propionate 0.05% Na Spr 16 Gm Btl (*Bkc) NASAL 1 spray Q12HR [facility] Administration Glucagon 1 mg 07/06/25 23:18 Glucagon For Inj 1 Mg Vial IM PRN PRN Hypoglycemia Protocol Glucose 15 gm 07/06/25 23:18 Glucose Oral Gel 15 Gm Of Glucse In 37.5 Gm Tube PO PRN PRN Hypoglycemia Protocol Dextrose 1,000 mls @ 100 mls/hr 07/06/25 23:18 Dextrose 5% 1,000 Ml IVPB PRN PRN Hypoglycemia Protocol Ibuprofen 400 mg/ Sodium 104 mls @ 208 mls/hr 07/07/25 17:27 07/11/25 15:01 Chloride IVPB Infused Q8H PRN Infusion Pain Rated 4-6 Ampicillin Sodium/Sulbactam 100 mls @ 200 mls/hr 07/11/25 10:30 07/14/25 05:58 Sodium 3 gm/ Sodium Chloride IVPB Infused Q6HR [facility] Infusion Insulin Aspart 3 - 6 units 07/07/25 08:00 07/14/25 08:26 Insulin Aspart (*Bkc) 100 Units/Ml SUB-Q Not Given TIDWM [facility] Protocol Losartan Potassium 25 mg 07/15/25 09:00 Losartan Potassium 25 Mg Tablet PO DAILY [facility] Metoprolol Tartrate 12.5 mg 07/10/25 21:00 07/14/25 09:22 Metoprolol Tartrate 12.5 Mg Tablet PO 12.5 mg Q12HR [facility] Administration Morphine Sulfate 2 mg 07/11/25 12:23 Morphine Sulfate (*Crx) 2 Mg/Ml Inj IV PUSH Q2H PRN Pain Rated 7-10 Morphine Sulfate 4 mg 07/11/25 12:23 07/11/25 13:30 Morphine Sulfate (*Crx) 4 Mg/Ml Inj IV PUSH 4 mg ONCE PRN Administration Preprocedure Ondansetron HCl 4 mg 07/06/25 22:57 07/09/25 13:54 Ondansetron Inj 4 Mg/2 Ml Vial IV PUSH 4 mg Q6H PRN Administration Nausea And Vomiting Pantoprazole Sodium 40 mg 07/12/25 09:00 07/14/25 09:23 Pantoprazole Sodium Iv 40 Mg Vial IV PUSH 40 mg QAM [facility] Administration Polyethylene Glycol 17 gm 07/12/25 09:00 07/14/25 09:24 Polyethylene Glycol 3350 17 Gm Powd.Pack PO Not Given QAM [facility] Sodium Chloride 10 ml 07/07/25 14:00 07/14/25 05:18 Central Line Flush IV PUSH 10 ml Q8HR [facility] Administration Sodium Chloride 20 ml 07/07/25 06:38 07/14/25 05:18 Central Line Flush IV PUSH 20 ml PRN PRN Administration after blood draws Spironolactone 25 mg 07/14/25 09:50 Spironolactone 25 Mg Tablet PO QAM [facility] Radiology Results: ITS Impressions Upper Quadrant Ultrasound 07/09/25 14:30 IMPRESSION: 1. Normal right upper quadrant ultrasound with no intra or extrahepatic biliary ductal dilation. Chest X-Ray 07/10/25 08:10 IMPRESSION: 1. Unchanged elevation right hemidiaphragm opacity bilateral lower lung zones which could represent atelectasis or pneumonia. Venous Doppler Study 07/10/25 15:15 Impression: Negative for DVT. Chest/Abdomen/Pelvis CT 07/10/25 15:44 IMPRESSION: 1. New groundglass opacities in right lung upper lobe, consistent with pneumonia. 2. Small pleural effusions. 3. Distended gallbladder with gallstone suspicious for acute cholecystitis. 4. Worsened liver mass near the gallbladder, consistent with abscess. Cholecystostomy 07/11/25 14:51 IMPRESSION: 1. Successful ultrasound-guided cholecystostomy tube placement. 2. 20 mL bile was sent for aerobic, anaerobic, and fungal cultures. 3. The catheter will be managed by Dr. Sarabia. A catheter cholangiogram may be performed not less than 48 hours after tube placement if clinically indicated to assess cystic duct patency. If cholecystectomy is not eventually performed and the infectious episode has resolved, the tube may be removed over a guidewire, preferably not less than 3 weeks after placement to allow time for a mature catheter tract to form to prevent bile leakage and peritonitis. Labs Labs: Laboratory Results - last 24 hr 07/13/25 07/13/25 07/13/25 12:36 17:34 19:59 WBC RBC Hgb Hct MCV MCH MCHC RDW Plt Count MPV Immature Gran % (Auto) Neut % (Auto) Lymph % (Auto) Ida % (Auto) Eos % (Auto) Baso % (Auto) Lymph # (Auto) Ida # (Auto) Eos # (Auto) Baso # (Auto) Abs Immat Gran (auto) Absolute Neuts (auto) Absolute Nucleated RBC Nucleated RBC % Sodium Potassium Chloride Carbon Dioxide Anion Gap BUN Creatinine Estim Creat Clear Calc Estimated GFR Glucose POC Capillary Glucose 154 H 128 H 109 H Lactic Acid Calcium Phosphorus Magnesium Total Bilirubin AST ALT Alkaline Phosphatase Total Protein Albumin 07/14/25 07/14/25 05:27 06:48 WBC 10.6 H RBC 3.30 L Hgb 10.6 L Hct 31.5 L MCV 95.5 MCH 32.1 MCHC 33.7 RDW 14.0 Plt Count 102 L D MPV 11.5 H Immature Gran % (Auto) 1.9 H Neut % (Auto) 86.0 H Lymph % (Auto) 5.9 L Ida % (Auto) 5.3 Eos % (Auto) 0.7 Baso % (Auto) 0.2 Lymph # (Auto) 0.63 L Ida # (Auto) 0.6 Eos # (Auto) 0.1 Baso # (Auto) 0.0 Abs Immat Gran (auto) 0.20 H Absolute Neuts (auto) 9.2 H Absolute Nucleated RBC 0.000 Nucleated RBC % 0.0 Sodium 137 Potassium 3.2 L Chloride 105 Carbon Dioxide 28 Anion Gap 4 BUN 20 Creatinine 0.69 L Estim Creat Clear Calc 97 Estimated GFR > 60 Glucose 105 POC Capillary Glucose 107 H Lactic Acid 0.7 Calcium 7.5 L Phosphorus 2.7 Magnesium 1.9 Total Bilirubin 1.0 AST 36 ALT 43 Alkaline Phosphatase 80 Total Protein 5.5 L Albumin 2.8 L Quality VTE Prophylaxis VTE prophylaxis: mechanical ordered
[2025-07-14] MEDS: SPIRONOLACTONE 25 MG TABLET PO (13:12)
--- NOTE | 2025-07-14 16:33 | PC.NURSE ---
On 07/14/25, the student, Keren Rizzo, provided care and completed [facility] documentation on this patient. I have reviewed the student's documentation and agree with the findings.
--- NOTE | 2025-07-14 16:55 | PM.PNGS ---
Progress Note: A&P Assessment and Plan (1) Acute calculous cholecystitis: Code(s): K80.00 - Calculus of gallbladder with acute cholecystitis without obstruction Status: Acute Assessment and Plan: Greatly improved after placement of cholecystostomy tube. Continue present treatment. (2) Liver abscess: Code(s): K75.0 - Abscess of liver Status: Acute Assessment and Plan: It appears patient will need IV antibiotics for 14 days after placement of the cholecystostomy tube. This would be on or about July 25. Plans regarding administration are pending. Subjective Subjective Date/Time Seen: 07/14/25 16:55 Patient reports: no new complaints, feels better, pain is less, tolerating a regular diet, bowel movement and afebrile Review of Systems Review of Systems: All systems reviewed & are unremarkable except as noted in HPI and below (HPI) Exam Const: General: comfortable and awake Orientation/consciousness: patient oriented x3 and No confusion GI: Inspection: normal to inspection, non-distended and incision (Right upper quadrant cholecystostomy drain in good position, draining bile) GI Palp: Yes Soft to palpation and No Tenderness to palpation present (GI) Auscultation: normoactive bowel sounds Objective Data Vital Signs Vital Signs: Vital Signs - 24 hr 07/13/25 17:56 07/13/25 20:00 07/13/25 20:00 Temperature 37.1 C Pulse Rate 77 77 70 Respiratory Rate 19 Blood Pressure 132/74 Pulse Oximetry 94 Oxygen Delivery 07/13/25 21:19 07/13/25 21:37 07/13/25 22:00 Temperature Pulse Rate 77 67 Respiratory Rate 19 Blood Pressure Pulse Oximetry 94 93 Oxygen Delivery Room Air Room Air 07/13/25 22:03 07/13/25 23:43 07/13/25 23:47 Temperature 37.2 C Pulse Rate 67 61 61 Respiratory Rate 15 15 Blood Pressure 136/74 Pulse Oximetry 95 95 Oxygen Delivery Room Air 07/14/25 00:00 07/14/25 02:00 07/14/25 04:00 Temperature 37.2 C Pulse Rate 63 65 63 Respiratory Rate 18 Blood Pressure 136/72 Pulse Oximetry 91 Oxygen Delivery 07/14/25 04:00 07/14/25 04:55 07/14/25 06:00 Temperature Pulse Rate 63 63 60 Respiratory Rate 18 Blood Pressure Pulse Oximetry 91 Oxygen Delivery Room Air 07/14/25 08:00 07/14/25 08:05 07/14/25 09:22 Temperature 36.8 C Pulse Rate 78 78 70 Respiratory Rate 16 Blood Pressure 119/77 Pulse Oximetry 94 Oxygen Delivery 07/14/25 10:00 07/14/25 11:55 07/14/25 12:00 Temperature 37.0 C Pulse Rate 71 68 81 Respiratory Rate 16 Blood Pressure 130/82 Pulse Oximetry 96 Oxygen Delivery 07/14/25 14:00 07/14/25 15:52 07/14/25 16:00 Temperature 36.9 C Pulse Rate 75 66 70 Respiratory Rate 18 Blood Pressure 136/75 Pulse Oximetry 95 Oxygen Delivery Intake/Output Intake/Output: Intake & Output 07/11/25 07/12/25 07/13/25 07/14/25 23:59 23:59 23:59 23:59 Intake Total 2448 2040 1170 765 Output Total 3325 2100 1980 665 Balance -877 -60 -810 100 Meds/Results Medications: Active Medications Generic Name Dose Route Start Last Admin Trade Name Freq PRN Reason Stop Dose Admin Acetaminophen 650 mg 07/06/25 22:57 07/12/25 20:18 Acetaminophen 325 Mg Tablet PO 650 mg Q4H PRN Administration Mild Pain (1-3) or Fever Al Hydrox/Mg Hydrox/Simethicone 30 ml 07/06/25 22:57 Mag Hydrox/Al Hydrox/Simeth 30 Ml Udc PO QID PRN Dyspepsia Artificial Tears 1 drop 07/11/25 09:15 07/13/25 08:15 Artificial Tears Ophth Soln 15 Ml Bottle EACH EYE 1 drop QID PRN Administration Dry Eye(s) Bisacodyl 5 mg 07/06/25 22:57 Bisacodyl 5 Mg Tablet Ec PO DAILY PRN Constipation Bisacodyl 10 mg 07/12/25 07:55 Bisacodyl 10 Mg Suppository RECTAL QAM PRN Constipation Dextrose 12.5 gm 07/06/25 23:18 Dextrose 50% 25 Gm/50 Ml Syringe IV PUSH PRN PRN Hypoglycemia Protocol Enoxaparin Sodium 40 mg 07/07/25 09:00 07/08/25 07:47 Enoxaparin 40 Mg/0.4 Ml Syringe SUB-Q Not Given On Hold: 07/08/25 10:03 DAILY [facility] Famotidine 20 mg 07/14/25 21:00 Famotidine 20 Mg Tablet PO Q12HR [facility] Fluticasone Propionate 1 spray 07/07/25 09:00 07/14/25 09:23 Fluticasone Propionate 0.05% Na Spr 16 Gm Btl (*Bkc) NASAL 1 spray Q12HR [facility] Administration Glucagon 1 mg 07/06/25 23:18 Glucagon For Inj 1 Mg Vial IM PRN PRN Hypoglycemia Protocol Glucose 15 gm 07/06/25 23:18 Glucose Oral Gel 15 Gm Of Glucse In 37.5 Gm Tube PO PRN PRN Hypoglycemia Protocol Dextrose 1,000 mls @ 100 mls/hr 07/06/25 23:18 Dextrose 5% 1,000 Ml IVPB PRN PRN Hypoglycemia Protocol Ampicillin Sodium/Sulbactam 100 mls @ 200 mls/hr 07/11/25 10:30 07/14/25 13:13 Sodium 3 gm/ Sodium Chloride IVPB 200 mls/hr Q6HR [facility] Administration Insulin Aspart 3 - 6 units 07/07/25 08:00 07/14/25 13:13 Insulin Aspart (*Bkc) 100 Units/Ml SUB-Q Not Given TIDWM [facility] Protocol Losartan Potassium 25 mg 07/15/25 09:00 Losartan Potassium 25 Mg Tablet PO DAILY [facility] Metoprolol Tartrate 12.5 mg 07/10/25 21:00 07/14/25 09:22 Metoprolol Tartrate 12.5 Mg Tablet PO 12.5 mg Q12HR [facility] Administration Morphine Sulfate 2 mg 07/11/25 12:23 Morphine Sulfate (*Crx) 2 Mg/Ml Inj IV PUSH Q2H PRN Pain Rated 7-10 Morphine Sulfate 4 mg 07/11/25 12:23 07/11/25 13:30 Morphine Sulfate (*Crx) 4 Mg/Ml Inj IV PUSH 4 mg ONCE PRN Administration Preprocedure Ondansetron HCl 4 mg 07/06/25 22:57 07/09/25 13:54 Ondansetron Inj 4 Mg/2 Ml Vial IV PUSH 4 mg Q6H PRN Administration Nausea And Vomiting Polyethylene Glycol 17 gm 07/12/25 09:00 07/14/25 09:24 Polyethylene Glycol 3350 17 Gm Powd.Pack PO Not Given QAM [facility] Sodium Chloride 10 ml 07/07/25 14:00 07/14/25 05:18 Central Line Flush IV PUSH 10 ml Q8HR [facility] Administration Sodium Chloride 20 ml 07/07/25 06:38 07/14/25 05:18 Central Line Flush IV PUSH 20 ml PRN PRN Administration after blood draws Spironolactone 25 mg 07/14/25 09:50 07/14/25 13:12 Spironolactone 25 Mg Tablet PO 25 mg QAM [facility] Administration Radiology Results: ITS Impressions Upper Quadrant Ultrasound 07/09/25 14:30 IMPRESSION: 1. Normal right upper quadrant ultrasound with no intra or extrahepatic biliary ductal dilation. Chest X-Ray 07/10/25 08:10 IMPRESSION: 1. Unchanged elevation right hemidiaphragm opacity bilateral lower lung zones which could represent atelectasis or pneumonia. Venous Doppler Study 07/10/25 15:15 Impression: Negative for DVT. Chest/Abdomen/Pelvis CT 07/10/25 15:44 IMPRESSION: 1. New groundglass opacities in right lung upper lobe, consistent with pneumonia. 2. Small pleural effusions. 3. Distended gallbladder with gallstone suspicious for acute cholecystitis. 4. Worsened liver mass near the gallbladder, consistent with abscess. Cholecystostomy 07/11/25 14:51 IMPRESSION: 1. Successful ultrasound-guided cholecystostomy tube placement. 2. 20 mL bile was sent for aerobic, anaerobic, and fungal cultures. 3. The catheter will be managed by Dr. Sarabia. A catheter cholangiogram may be performed not less than 48 hours after tube placement if clinically indicated to assess cystic duct patency. If cholecystectomy is not eventually performed and the infectious episode has resolved, the tube may be removed over a guidewire, preferably not less than 3 weeks after placement to allow time for a mature catheter tract to form to prevent bile leakage and peritonitis. Labs Labs: Laboratory Results - last 24 hr 07/13/25 07/13/25 07/14/25 17:34 19:59 05:27 WBC 10.6 H RBC 3.30 L Hgb 10.6 L Hct 31.5 L MCV 95.5 MCH 32.1 MCHC 33.7 RDW 14.0 Plt Count 102 L D MPV 11.5 H Immature Gran % (Auto) 1.9 H Neut % (Auto) 86.0 H Lymph % (Auto) 5.9 L Baldwin % (Auto) 5.3 Eos % (Auto) 0.7 Baso % (Auto) 0.2 Lymph # (Auto) 0.63 L Baldwin # (Auto) 0.6 Eos # (Auto) 0.1 Baso # (Auto) 0.0 Abs Immat Gran (auto) 0.20 H Absolute Neuts (auto) 9.2 H Absolute Nucleated RBC 0.000 Nucleated RBC % 0.0 Sodium 137 Potassium 3.2 L Chloride 105 Carbon Dioxide 28 Anion Gap 4 BUN 20 Creatinine 0.69 L Estim Creat Clear Calc 97 Estimated GFR > 60 Glucose 105 POC Capillary Glucose 128 H 109 H Lactic Acid 0.7 Calcium 7.5 L Phosphorus 2.7 Magnesium 1.9 Total Bilirubin 1.0 AST 36 ALT 43 Alkaline Phosphatase 80 Total Protein 5.5 L Albumin 2.8 L 07/14/25 07/14/25 07/14/25 06:48 11:53 16:06 WBC RBC Hgb Hct MCV MCH MCHC RDW Plt Count MPV Immature Gran % (Auto) Neut % (Auto) Lymph % (Auto) Baldwin % (Auto) Eos % (Auto) Baso % (Auto) Lymph # (Auto) Baldwin # (Auto) Eos # (Auto) Baso # (Auto) Abs Immat Gran (auto) Absolute Neuts (auto) Absolute Nucleated RBC Nucleated RBC % Sodium Potassium Chloride Carbon Dioxide Anion Gap BUN Creatinine Estim Creat Clear Calc Estimated GFR Glucose POC Capillary Glucose 107 H 131 H 137 H Lactic Acid Calcium Phosphorus Magnesium Total Bilirubin AST ALT Alkaline Phosphatase Total Protein Albumin
[2025-07-14] MEDS: FAMOTIDINE 20 MG TABLET PO (21:52)
[2025-07-15] VITALS (19 sets, daily range): BP systolic 115–147; BP diastolic 73–86; PULSE 60–86; RESP 16–20; TEMP 36.7–37.1; O2SAT 91–96
--- NOTE | 2025-07-15 03:37 | P.PNCROSS_ITS ---
Event Note Event Note Event Note: The patient was noted to have several small blisters in the left flank area. D ermatome 30. The patient stated that it itches but then it also feels like a sunburn. He has no prior history of shingles. Valtrex was ordered please monitor liver enzymes.
[2025-07-15] MEDS: CENTRAL LINE FLUSH 10 ML IV PUSH ×3 (03:51→23:22)
[2025-07-15] MEDS: CENTRAL LINE FLUSH 20 ML IV PUSH (03:51)
[2025-07-15 04:17] LABS: Hematocrit 30.0 % (42.0-52.0); Hemoglobin 9.9 g/dL (14.0-18.0); Immature Granulocyte Percent A 1.4 % (0-0.5); Immature Platelet Fraction Pct 5.9 % (0.9-11.2); Lymphocytes Absolute Auto 0.49 K/mm3 (0.9-3.2); Mean Corpuscular HGB Conc 33.0 g/dl (32-36); Mean Corpuscular Hemoglobin 31.4 pg (26-34); Mean Corpuscular Volume 95.2 fl (80-100); Nucleated Red Blood Cells Absolute Auto 0.000 K/mm3 (0.0-0.012); Nucleated Red Blood Cells Perc 0.0 % (0.0-0.2); Platelet Count Result 141 k/mm3 (150-375); Red Blood Count 3.15 M/mm3 (4.6-6.20); White Blood Count 9.0 K/mm3 (4.5-10.0)
[2025-07-15 04:43] LABS: Alanine Aminotransferase 36 U/L (6-50); Albumin Level 2.6 g/dL (3.5-5.1); Alkaline Phosphatase 83 U/L (38-126); Anion Gap 3 mmol/L (4-12); Aspartate Amino Transferase 35 U/L (17-59); Bilirubin,Total 1.0 mg/dL (0.2-1.3); Blood Urea Nitrogen 14 mg/dL (9-20); Calcium 7.5 mg/dL (8.4-10.2); Carbon Dioxide 28 mmol/L (22-30); Chloride 105 mmol/L (98-107); Estimated CRCL calculation 92 ml/min; Estimated Glomerular Filt Rate > 60; Glucose 99 mg/dL (65-110); Magnesium 1.9 mg/dL (1.6-2.3); Potassium 3.4 mmol/L (3.4-5.0); Sodium 136 mmol/L (137-145); Total Protein 5.4 g/dL (6.3-8.2)
[2025-07-15] MEDS: AMPICILLIN SODIUM/SULBACTAM 3 GM in SODIUM CHLORIDE 0.9% IV 100 ML 200 ML IVPB ×4 (06:57→23:22)
[2025-07-15] MEDS: SPIRONOLACTONE 25 MG TABLET PO (09:17)
[2025-07-15] MEDS: LOSARTAN POTASSIUM 25 MG TABLET PO (09:17)
[2025-07-15] MEDS: FLUTICASONE PROPIONATE 0.05% NA SPR 16 GM BTL (*BKC) 1 SPRAY NASAL (09:18)
[2025-07-15] MEDS: FAMOTIDINE 20 MG TABLET PO ×2 (09:18→23:21)
[2025-07-15] MEDS: METOPROLOL TARTRATE 12.5 MG TABLET PO ×2 (09:19→23:21)
[2025-07-15] MEDS: ARTIFICIAL TEARS OPHTH SOLN 15 ML BOTTLE 1 DROP EACH EYE (09:20)
--- NOTE | 2025-07-15 10:30 | PM.PNCARD ---
Progress Note: A&P Assessment and Plan (1) Acute systolic heart failure: Code(s): I50.21 - Acute systolic (congestive) heart failure Status: Acute Plan 74-year-old man with acute cholecystitis with liver abscess and sepsis. In that setting found to have declined left ventricular systolic function. He is asymptomatic with this and on appropriate medical therapy. This will be continued and we will follow him through this hospitalization. As stated in my previous note he does have cardiology follow established elsewhere and he will follow-up with his physician and determine if any further evaluation in the way of follow-up catheterization should be done. Explained to the patient that if his LV systolic function normalizes after his sepsis resolves it may not be necessary to perform left heart catheterization. 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 I transition to the patient from lisinopril at was started yesterday to losartan since the [facility] was on his home medical list and he was switched from lisinopril to that agent in the past because of coughing. 07/15/2025: Comfortable visiting with family offers no complaints. Exam Narrative: General: Alert oriented x3, no acute distress Neck: Supple, no JVD Chest: Bilaterally clear to auscultation, no rales or rhonchi Cardiac: S1, S2 +, regular rate, regular rhythm, no murmurs or rubs Extremities: No pedal edema, no skin rash Neurologic: Alert and oriented x3, no focal neurological deficits Const: General: comfortable and no acute distress HENMT: Mouth: Yes moist mucous membranes Eyes: Sclera: sclerae normal Neck: Neck: supple and no JVD Resp: Effort & Inspection: normal respiratory effort Auscultation: clear to auscultation bilaterally Cardio: Rate: regular rate Rhythm: regular rhythm GI: Auscultation: normal bowel sounds Skin: General skin exam: normal color Neuro: Other: Alert and oriented x3 Extrem: General: normal to inspection Objective Data Vital Signs Vital Signs: Vital Signs - 24 hr 07/14/25 11:55 07/14/25 12:00 07/14/25 14:00 Temperature 37.0 C Pulse Rate 68 81 75 Respiratory Rate 16 Blood Pressure 130/82 Pulse Oximetry 96 Oxygen Delivery 07/14/25 15:52 07/14/25 16:00 07/14/25 18:00 Temperature 36.9 C Pulse Rate 66 70 71 Respiratory Rate 18 Blood Pressure 136/75 Pulse Oximetry 95 Oxygen Delivery 07/14/25 20:00 07/14/25 20:00 07/14/25 20:00 Temperature 36.9 C Pulse Rate 63 63 Respiratory Rate 20 Blood Pressure 132/75 Pulse Oximetry 93 93 Oxygen Delivery Room Air 07/14/25 21:18 07/14/25 21:52 07/14/25 22:00 Temperature Pulse Rate 63 68 65 Respiratory Rate 20 Blood Pressure Pulse Oximetry 93 Oxygen Delivery Room Air 07/14/25 23:32 07/14/25 23:38 07/15/25 00:00 Temperature 37.4 C Pulse Rate 68 68 65 Respiratory Rate 20 20 Blood Pressure 124/71 Pulse Oximetry 94 94 Oxygen Delivery Room Air 07/15/25 02:00 07/15/25 03:46 07/15/25 04:00 Temperature 36.7 C Pulse Rate 63 73 73 Respiratory Rate 16 16 Blood Pressure 147/86 H Pulse Oximetry 95 95 Oxygen Delivery Room Air 07/15/25 04:00 07/15/25 06:00 07/15/25 08:00 Temperature 37.1 C Pulse Rate 60 69 86 Respiratory Rate 16 Blood Pressure 115/79 Pulse Oximetry 95 Oxygen Delivery 07/15/25 08:00 07/15/25 09:19 Temperature Pulse Rate 82 86 Respiratory Rate Blood Pressure Pulse Oximetry Oxygen Delivery Intake/Output Intake/Output: Intake & Output 07/12/25 07/13/25 07/14/25 07/15/25 23:59 23:59 23:59 23:59 Intake Total 2039 1169 2164 560 Output Total 2099 1979 2089 1309 Balance -60 -810 75 -346 Meds/Results Medications: Active Medications Generic Name Dose Route Start Last Admin Trade Name Freq PRN Reason Stop Dose Admin Acetaminophen 650 mg 07/06/25 22:57 07/12/25 20:18 Acetaminophen 325 Mg Tablet PO 650 mg Q4H PRN Administration Mild Pain (1-3) or Fever Al Hydrox/Mg Hydrox/Simethicone 30 ml 07/06/25 22:57 Mag Hydrox/Al Hydrox/Simeth 30 Ml Udc PO QID PRN Dyspepsia Artificial Tears 1 drop 07/11/25 09:15 07/15/25 09:20 Artificial Tears Ophth Soln 15 Ml Bottle EACH EYE 1 drop QID PRN Administration Dry Eye(s) Bisacodyl 5 mg 07/06/25 22:57 Bisacodyl 5 Mg Tablet Ec PO DAILY PRN Constipation Bisacodyl 10 mg 07/12/25 07:55 Bisacodyl 10 Mg Suppository RECTAL QAM PRN Constipation Dextrose 12.5 gm 07/06/25 23:18 Dextrose 50% 25 Gm/50 Ml Syringe IV PUSH PRN PRN Hypoglycemia Protocol Diphenhydramine HCl 25 mg 07/15/25 03:40 Diphenhydramine Hcl Cap 25 Mg Capsule PO Q6H PRN Itching Enoxaparin Sodium 40 mg 07/07/25 09:00 07/08/25 07:47 Enoxaparin 40 Mg/0.4 Ml Syringe SUB-Q Not Given On Hold: 07/08/25 10:03 DAILY XENIA Famotidine 20 mg 07/14/25 21:00 07/15/25 09:18 Famotidine 20 Mg Tablet PO 20 mg Q12HR XENIA Administration Fluticasone Propionate 1 spray 07/07/25 09:00 07/15/25 09:18 Fluticasone Propionate 0.05% Na Spr 16 Gm Btl (*Bkc) NASAL 1 spray Q12HR XENIA Administration Glucagon 1 mg 07/06/25 23:18 Glucagon For Inj 1 Mg Vial IM PRN PRN Hypoglycemia Protocol Glucose 15 gm 07/06/25 23:18 Glucose Oral Gel 15 Gm Of Glucse In 37.5 Gm Tube PO PRN PRN Hypoglycemia Protocol Dextrose 1,000 mls @ 100 mls/hr 07/06/25 23:18 Dextrose 5% 1,000 Ml IVPB PRN PRN Hypoglycemia Protocol Ampicillin Sodium/Sulbactam 100 mls @ 200 mls/hr 07/11/25 10:30 07/15/25 07:27 Sodium 3 gm/ Sodium Chloride IVPB Infused Q6HR XENIA Infusion Insulin Aspart 3 - 6 units 07/07/25 08:00 07/15/25 09:28 Insulin Aspart (*Bkc) 100 Units/Ml SUB-Q Not Given TIDWM [facility] Protocol Losartan Potassium 25 mg 07/15/25 09:00 07/15/25 09:17 Losartan Potassium 25 Mg Tablet PO 25 mg DAILY XENIA Administration Metoprolol Tartrate 12.5 mg 07/10/25 21:00 07/15/25 09:19 Metoprolol Tartrate 12.5 Mg Tablet PO 12.5 mg Q12HR XENIA Administration Morphine Sulfate 2 mg 07/11/25 12:23 Morphine Sulfate (*Crx) 2 Mg/Ml Inj IV PUSH Q2H PRN Pain Rated 7-10 Morphine Sulfate 4 mg 07/11/25 12:23 07/11/25 13:30 Morphine Sulfate (*Crx) 4 Mg/Ml Inj IV PUSH 4 mg ONCE PRN Administration Preprocedure Ondansetron HCl 4 mg 07/06/25 22:57 07/09/25 13:54 Ondansetron Inj 4 Mg/2 Ml Vial IV PUSH 4 mg Q6H PRN Administration Nausea And Vomiting Polyethylene Glycol 17 gm 07/12/25 09:00 07/15/25 09:20 Polyethylene Glycol 3350 17 Gm Powd.Pack PO Not Given QAM XENIA Sodium Chloride 10 ml 07/07/25 14:00 07/15/25 03:51 Central Line Flush IV PUSH 10 ml Q8HR XENIA Administration Sodium Chloride 20 ml 07/07/25 06:38 07/15/25 03:51 Central Line Flush IV PUSH 20 ml PRN PRN Administration after blood draws Spironolactone 25 mg 07/14/25 09:50 07/15/25 09:17 Spironolactone 25 Mg Tablet PO 25 mg QAM XENIA Administration Valacyclovir HCl 1,000 mg 07/15/25 06:00 07/15/25 06:58 Valacyclovir Hcl 500 Mg Tablet PO 1,000 mg Q8HR XENIA Administration Radiology Results: ITS Impressions Upper Quadrant Ultrasound 07/09/25 14:30 IMPRESSION: 1. Normal right upper quadrant ultrasound with no intra or extrahepatic biliary ductal dilation. Chest X-Ray 07/10/25 08:10 IMPRESSION: 1. Unchanged elevation right hemidiaphragm opacity bilateral lower lung zones which could represent atelectasis or pneumonia. Venous Doppler Study 07/10/25 15:15 Impression: Negative for DVT. Chest/Abdomen/Pelvis CT 07/10/25 15:44 IMPRESSION: 1. New groundglass opacities in right lung upper lobe, consistent with pneumonia. 2. Small pleural effusions. 3. Distended gallbladder with gallstone suspicious for acute cholecystitis. 4. Worsened liver mass near the gallbladder, consistent with abscess. Cholecystostomy 07/11/25 14:51 IMPRESSION: 1. Successful ultrasound-guided cholecystostomy tube placement. 2. 20 mL bile was sent for aerobic, anaerobic, and fungal cultures. 3. The catheter will be managed by Dr. Sarabia. A catheter cholangiogram may be performed not less than 48 hours after tube placement if clinically indicated to assess cystic duct patency. If cholecystectomy is not eventually performed and the infectious episode has resolved, the tube may be removed over a guidewire, preferably not less than 3 weeks after placement to allow time for a mature catheter tract to form to prevent bile leakage and peritonitis. Labs Labs: Laboratory Results - last 24 hr 07/14/25 07/14/25 07/14/25 11:53 16:06 20:16 WBC RBC Hgb Hct MCV MCH MCHC RDW Plt Count MPV Immature Gran % (Auto) Neut % (Auto) Lymph % (Auto) [place] % (Auto) Eos % (Auto) Baso % (Auto) Lymph # (Auto) [place] # (Auto) Eos # (Auto) Baso # (Auto) Abs Immat Gran (auto) Absolute Neuts (auto) Absolute Nucleated RBC Nucleated RBC % % Immature Plt Fraction Sodium Potassium Chloride Carbon Dioxide Anion Gap BUN Creatinine Estim Creat Clear Calc Estimated GFR Glucose POC Capillary Glucose 131 H 137 H 113 H Lactic Acid Calcium Phosphorus Magnesium Total Bilirubin AST ALT Alkaline Phosphatase Total Protein Albumin 07/15/25 07/15/25 07/15/25 03:52 03:59 07:15 WBC 9.0 RBC 3.15 L Hgb 9.9 L Hct 30.0 L MCV 95.2 MCH 31.4 MCHC 33.0 RDW 13.6 Plt Count 141 L MPV 10.8 H Immature Gran % (Auto) 1.4 H Neut % (Auto) 86.7 H Lymph % (Auto) 5.4 L [place]kin % (Auto) 5.2 Eos % (Auto) 0.9 Baso % (Auto) 0.4 Lymph # (Auto) 0.49 L [place] # (Auto) 0.5 Eos # (Auto) 0.1 Baso # (Auto) 0.0 Abs Immat Gran (auto) 0.13 H Absolute Neuts (auto) 7.8 H Absolute Nucleated RBC 0.000 Nucleated RBC % 0.0 % Immature Plt Fraction 5.9 Sodium 136 L Potassium 3.4 Chloride 105 Carbon Dioxide 28 Anion Gap 3 L BUN 14 D Creatinine 0.73 Estim Creat Clear Calc 92 Estimated GFR > 60 Glucose 99 POC Capillary Glucose 104 Lactic Acid 0.6 L Calcium 7.5 L Phosphorus 2.9 Magnesium 1.9 Total Bilirubin 1.0 AST 35 ALT 36 Alkaline Phosphatase 83 Total Protein 5.4 L Albumin 2.6 L
--- NOTE | 2025-07-15 12:10 | PM.PNGS ---
Progress Note: A&P Assessment and Plan (1) Acute calculous cholecystitis: Code(s): K80.00 - Calculus of gallbladder with acute cholecystitis without obstruction Status: Acute Assessment and Plan: Resolving after cholecystostomy tube was placed. May wish to proceed with cholecystogram this week to assess cystic and common bile duct patencies. (2) Liver abscess: Code(s): K75.0 - Abscess of liver Status: Acute Assessment and Plan: Per infectious disease specialist, IV antibiotics for total of 2 weeks starting from time of cholecystostomy tube placement which was 07/11/2025. Discharge planning will need to consider this unless patient in hospital until and including July 25. (3) Thrombocytopenia: Code(s): D69.6 - Thrombocytopenia, unspecified Status: Acute Assessment and Plan: Continues to improve. Likely due to sepsis. Subjective Subjective Date/Time Seen: 07/15/25 12:10 Patient reports: tolerating a regular diet, bowel movement, afebrile and other (Had back pain last night, appeared to be shingles per nursing. Better this morning) Review of Systems Review of Systems: All systems reviewed & are unremarkable except as noted in HPI and below (HPI) Exam Const: General: healthy appearing, comfortable and awake Nutritional Appearance: well nourished Orientation/consciousness: No confusion GI: Inspection: other (Bile draining per cholecystostomy tube) GI Palp: Yes Soft to palpation and No Tenderness to palpation present (GI) Objective Data Vital Signs Vital Signs: Vital Signs - 24 hr 07/14/25 14:00 07/14/25 15:52 07/14/25 16:00 Temperature 36.9 C Pulse Rate 75 66 70 Respiratory Rate 18 Blood Pressure 136/75 Pulse Oximetry 95 Oxygen Delivery 07/14/25 18:00 07/14/25 20:00 07/14/25 20:00 Temperature 36.9 C Pulse Rate 71 63 63 Respiratory Rate 20 Blood Pressure 132/75 Pulse Oximetry 93 Oxygen Delivery 07/14/25 20:00 07/14/25 21:18 07/14/25 21:52 Temperature Pulse Rate 63 68 Respiratory Rate 20 Blood Pressure Pulse Oximetry 93 93 Oxygen Delivery Room Air Room Air 07/14/25 22:00 07/14/25 23:32 07/14/25 23:38 Temperature 37.4 C Pulse Rate 65 68 68 Respiratory Rate 20 20 Blood Pressure 124/71 Pulse Oximetry 94 94 Oxygen Delivery Room Air 07/15/25 00:00 07/15/25 02:00 07/15/25 03:46 Temperature Pulse Rate 65 63 73 Respiratory Rate 16 Blood Pressure Pulse Oximetry 95 Oxygen Delivery Room Air 07/15/25 04:00 07/15/25 04:00 07/15/25 06:00 Temperature 36.7 C Pulse Rate 73 60 69 Respiratory Rate 16 Blood Pressure 147/86 H Pulse Oximetry 95 Oxygen Delivery 07/15/25 08:00 07/15/25 08:00 07/15/25 09:19 Temperature 37.1 C Pulse Rate 86 82 86 Respiratory Rate 16 Blood Pressure 115/79 Pulse Oximetry 95 Oxygen Delivery 07/15/25 10:00 07/15/25 11:59 Temperature 36.8 C Pulse Rate 83 67 Respiratory Rate 18 Blood Pressure 118/73 Pulse Oximetry 96 Oxygen Delivery Intake/Output Intake/Output: Intake & Output 07/12/25 07/13/25 07/14/25 07/15/25 23:59 23:59 23:59 23:59 Intake Total 2039 117 216 560 Output Total 2099 1979 2089 1309 Balance -60 -810 75 -750 Meds/Results Medications: Active Medications Generic Name Dose Route Start Last Admin Trade Name Freq PRN Reason Stop Dose Admin Acetaminophen 650 mg 07/06/25 22:57 07/12/25 20:18 Acetaminophen 325 Mg Tablet PO 650 mg Q4H PRN Administration Mild Pain (1-3) or Fever Al Hydrox/Mg Hydrox/Simethicone 30 ml 07/06/25 22:57 Mag Hydrox/Al Hydrox/Simeth 30 Ml Udc PO QID PRN Dyspepsia Artificial Tears 1 drop 07/11/25 09:15 07/15/25 09:20 Artificial Tears Ophth Soln 15 Ml Bottle EACH EYE 1 drop QID PRN Administration Dry Eye(s) Bisacodyl 5 mg 07/06/25 22:57 Bisacodyl 5 Mg Tablet Ec PO DAILY PRN Constipation Bisacodyl 10 mg 07/12/25 07:55 Bisacodyl 10 Mg Suppository RECTAL QAM PRN Constipation Dextrose 12.5 gm 07/06/25 23:18 Dextrose 50% 25 Gm/50 Ml Syringe IV PUSH PRN PRN Hypoglycemia Protocol Diphenhydramine HCl 25 mg 07/15/25 03:40 Diphenhydramine Hcl Cap 25 Mg Capsule PO Q6H PRN Itching Enoxaparin Sodium 40 mg 07/07/25 09:00 07/08/25 07:47 Enoxaparin 40 Mg/0.4 Ml Syringe SUB-Q Not Given On Hold: 07/08/25 10:03 DAILY XENIA Famotidine 20 mg 07/14/25 21:00 07/15/25 09:18 Famotidine 20 Mg Tablet PO 20 mg Q12HR XENIA Administration Fluticasone Propionate 1 spray 07/07/25 09:00 07/15/25 09:18 Fluticasone Propionate 0.05% Na Spr 16 Gm Btl (*Bkc) NASAL 1 spray Q12HR XENIA Administration Glucagon 1 mg 07/06/25 23:18 Glucagon For Inj 1 Mg Vial IM PRN PRN Hypoglycemia Protocol Glucose 15 gm 07/06/25 23:18 Glucose Oral Gel 15 Gm Of Glucse In 37.5 Gm Tube PO PRN PRN Hypoglycemia Protocol Dextrose 1,000 mls @ 100 mls/hr 07/06/25 23:18 Dextrose 5% 1,000 Ml IVPB PRN PRN Hypoglycemia Protocol Ampicillin Sodium/Sulbactam 100 mls @ 200 mls/hr 07/11/25 10:30 07/15/25 12:07 Sodium 3 gm/ Sodium Chloride IVPB 200 mls/hr Q6HR XENIA Administration Insulin Aspart 3 - 6 units 07/07/25 08:00 07/15/25 09:28 Insulin Aspart (*Bkc) 100 Units/Ml SUB-Q Not Given TIDWM [facility] Protocol Losartan Potassium 25 mg 07/15/25 09:00 07/15/25 09:17 Losartan Potassium 25 Mg Tablet PO 25 mg DAILY XENIA Administration Metoprolol Tartrate 12.5 mg 07/10/25 21:00 07/15/25 09:19 Metoprolol Tartrate 12.5 Mg Tablet PO 12.5 mg Q12HR XENIA Administration Morphine Sulfate 2 mg 07/11/25 12:23 Morphine Sulfate (*Crx) 2 Mg/Ml Inj IV PUSH Q2H PRN Pain Rated 7-10 Morphine Sulfate 4 mg 07/11/25 12:23 07/11/25 13:30 Morphine Sulfate (*Crx) 4 Mg/Ml Inj IV PUSH 4 mg ONCE PRN Administration Preprocedure Ondansetron HCl 4 mg 07/06/25 22:57 07/09/25 13:54 Ondansetron Inj 4 Mg/2 Ml Vial IV PUSH 4 mg Q6H PRN Administration Nausea And Vomiting Polyethylene Glycol 17 gm 07/12/25 09:00 07/15/25 09:20 Polyethylene Glycol 3350 17 Gm Powd.Pack PO Not Given QAM XENIA Sodium Chloride 10 ml 07/07/25 14:00 07/15/25 03:51 Central Line Flush IV PUSH 10 ml Q8HR XENIA Administration Sodium Chloride 20 ml 07/07/25 06:38 07/15/25 03:51 Central Line Flush IV PUSH 20 ml PRN PRN Administration after blood draws Spironolactone 25 mg 07/14/25 09:50 07/15/25 09:17 Spironolactone 25 Mg Tablet PO 25 mg QAM XENIA Administration Valacyclovir HCl 1,000 mg 07/15/25 06:00 07/15/25 06:58 Valacyclovir Hcl 500 Mg Tablet PO 1,000 mg Q8HR XENIA Administration Radiology Results: ITS Impressions Upper Quadrant Ultrasound 07/09/25 14:30 IMPRESSION: 1. Normal right upper quadrant ultrasound with no intra or extrahepatic biliary ductal dilation. Chest X-Ray 07/10/25 08:10 IMPRESSION: 1. Unchanged elevation right hemidiaphragm opacity bilateral lower lung zones which could represent atelectasis or pneumonia. Venous Doppler Study 07/10/25 15:15 Impression: Negative for DVT. Chest/Abdomen/Pelvis CT 07/10/25 15:44 IMPRESSION: 1. New groundglass opacities in right lung upper lobe, consistent with pneumonia. 2. Small pleural effusions. 3. Distended gallbladder with gallstone suspicious for acute cholecystitis. 4. Worsened liver mass near the gallbladder, consistent with abscess. Cholecystostomy 07/11/25 14:51 IMPRESSION: 1. Successful ultrasound-guided cholecystostomy tube placement. 2. 20 mL bile was sent for aerobic, anaerobic, and fungal cultures. 3. The catheter will be managed by Dr. Sarabia. A catheter cholangiogram may be performed not less than 48 hours after tube placement if clinically indicated to assess cystic duct patency. If cholecystectomy is not eventually performed and the infectious episode has resolved, the tube may be removed over a guidewire, preferably not less than 3 weeks after placement to allow time for a mature catheter tract to form to prevent bile leakage and peritonitis. Labs Labs: Laboratory Results - last 24 hr 07/14/25 07/14/25 07/15/25 16:06 20:16 03:52 WBC RBC Hgb Hct MCV MCH MCHC RDW Plt Count MPV Immature Gran % (Auto) Neut % (Auto) Lymph % (Auto) [place] % (Auto) Eos % (Auto) Baso % (Auto) Lymph # (Auto) [place]ke # (Auto) Eos # (Auto) Baso # (Auto) Abs Immat Gran (auto) Absolute Neuts (auto) Absolute Nucleated RBC Nucleated RBC % % Immature Plt Fraction Sodium 136 L Potassium 3.4 Chloride 105 Carbon Dioxide 28 Anion Gap 3 L BUN 14 D Creatinine 0.73 Estim Creat Clear Calc 92 Estimated GFR > 60 Glucose 99 POC Capillary Glucose 137 H 113 H Lactic Acid 0.6 L Calcium 7.5 L Phosphorus 2.9 Magnesium 1.9 Total Bilirubin 1.0 AST 35 ALT 36 Alkaline Phosphatase 83 Total Protein 5.4 L Albumin 2.6 L 07/15/25 07/15/25 07/15/25 03:59 07:15 11:12 WBC 9.0 RBC 3.15 L Hgb 9.9 L Hct 30.0 L MCV 95.2 MCH 31.4 MCHC 33.0 RDW 13.6 Plt Count 141 L MPV 10.8 H Immature Gran % (Auto) 1.4 H Neut % (Auto) 86.7 H Lymph % (Auto) 5.4 L Darke % (Auto) 5.2 Eos % (Auto) 0.9 Baso % (Auto) 0.4 Lymph # (Auto) 0.49 L [place]ke # (Auto) 0.5 Eos # (Auto) 0.1 Baso # (Auto) 0.0 Abs Immat Gran (auto) 0.13 H Absolute Neuts (auto) 7.8 H Absolute Nucleated RBC 0.000 Nucleated RBC % 0.0 % Immature Plt Fraction 5.9 Sodium Potassium Chloride Carbon Dioxide Anion Gap BUN Creatinine Estim Creat Clear Calc Estimated GFR Glucose POC Capillary Glucose 104 148 H Lactic Acid Calcium Phosphorus Magnesium Total Bilirubin AST ALT Alkaline Phosphatase Total Protein Albumin
--- NOTE | 2025-07-15 15:58 | PCOTNOTE ---
Attempted to see pt for OT treatment this afternoon. Pt declined to participate in session due to having visitors arriving soon. Pt reports that he has been doing his UE/LE strengthening and walking with staff to/from bathroom. Pt is educated on importance of continued participation in therapy services for overall wellbeing, however pt continues to refuse. Will continue per poc duration/frequency tomorrow.
[2025-07-15] MEDS: diphenhydrAMINE HCl CAP 25 MG CAPSULE PO (23:23)
[2025-07-16] VITALS (17 sets, daily range): BP systolic 122–143; BP diastolic 66–79; PULSE 58–97; RESP 14–18; TEMP 36.9–37.1; O2SAT 90–98
--- NOTE | 2025-07-16 | ECHO_ITS ---
Patient Info Name: Van Young Age: 74 years : 1950 Gender: Male Ht: 71 in Wt: 219 lbs BSA: 2.26 m2 HR: 69 bpm BP: 129 / 68 mmHg Technical Quality: Good Exam Date: 07/16/2025 1:40 PM Patient Status: I Admit Date: 07/07/2025 Exam Type: CA echo limited Limited two-dimensional transthoracic echocardiogram is performed. Staff Referring Physician: Miguel Sarabia DO Embroidery Assistant: Erica Philip Attending Provider: Asuncion Ruiz DO Summary 1. There is normal biventricular size and systolic function. 2. There are no significant valvular abnormalities. Left Ventricle The left ventricle is normal in size and systolic function. The left ventricular ejection fraction is visually estimated to be 60-65%. Right Ventricle The right ventricle is normal in size and systolic function. Aortic Valve The aortic valve is trileaflet and opens well. There is no aortic regurgitation. Pulmonic Valve The pulmonic valve is not well visualized. Mitral Valve The mitral valve is normal. There is no mitral regurgitation. Tricuspid Valve The tricuspid valve is normal. There is trace tricuspid regurgitation. Tricuspid Valve Name Value Normal TV Regurgitation Doppler TR Peak Velocity 203 cm/s TR Peak Gradient 16 mmHg Estimated PAP/RSVP RA Pressure 10 mmHg <=5 PA Systolic Pressure 26 mmHg <36 RV Systolic Pressure 26 mmHg <36 Ventricles Name Value Normal LV Dimensions 2D/MM IVS Diastolic Thickness (2D) 1.1 cm 0.6-1.0 LVID Diastole (2D) 5.2 cm 4.2-5.8 LVIW Diastolic Thickness (2D) 1.1 cm 0.6-1.0 LVID Systole (2D) 2.8 cm 2.5-4.0 LV Mass (2D Cubed) 225.44 g 88.00-224.00 LV Mass Index (2D Cubed) 100 g/m2 49-115 Relative Wall Thickness (2D) 0.42 <=0.42 LV Fractional Shortening/Ejection Fraction 2D/MM LV Fractional Shortening (2D) 47 % 25-43 LV EF (2D Teichholz) 79 % LV Diastolic Volume (4C MOD) 150 ml LV EF (4C MOD) 53 % LV Diastolic Volume (2C MOD) 124 ml LV EF (2C MOD) 69 % LV Diastolic Volume (BP MOD) 137 ml 62-150 LV Diastolic Volume Index (BP MOD) 61 ml/m2 34-74 LV Systolic Volume (BP MOD) 54 ml 21-61 LV Systolic Volume Index (BP MOD) 24 ml/m2 11-31 LV EF (BP MOD) 61 % 52-72 LV Diastolic Length (4C) 9.2 cm LV Systolic Length (4C) 7.8 cm LV Stroke Volume (4C MOD) 80 ml Report Signatures
[2025-07-16] MEDS: AMPICILLIN SODIUM/SULBACTAM 3 GM in SODIUM CHLORIDE 0.9% IV 100 ML 200 ML IVPB ×4 (06:44→23:32)
[2025-07-16] MEDS: CENTRAL LINE FLUSH 20 ML IV PUSH (06:44)
[2025-07-16] MEDS: CENTRAL LINE FLUSH 10 ML IV PUSH ×3 (06:44→21:22)
[2025-07-16 07:29] LABS: Estimated CRCL calculation 91 ml/min; Estimated Glomerular Filt Rate > 60; Iron 53 ug/dL (49-181)
[2025-07-16 07:39] LABS: Percent Iron Saturation 22 % (20-50)
[2025-07-16 08:10] LABS: Ferritin 467.00 ng/mL (11.1-264)
[2025-07-16] MEDS: LOSARTAN POTASSIUM 25 MG TABLET PO (09:22)
[2025-07-16] MEDS: SPIRONOLACTONE 25 MG TABLET PO (09:22)
[2025-07-16] MEDS: METOPROLOL TARTRATE 12.5 MG TABLET PO ×2 (09:22→21:22)
[2025-07-16] MEDS: FLUTICASONE PROPIONATE 0.05% NA SPR 16 GM BTL (*BKC) 1 SPRAY NASAL ×2 (09:22→21:22)
[2025-07-16] MEDS: FAMOTIDINE 20 MG TABLET PO ×2 (09:22→21:22)
[2025-07-16] MEDS: ARTIFICIAL TEARS OPHTH SOLN 15 ML BOTTLE 1 DROP EACH EYE (09:23)
--- NOTE | 2025-07-16 11:15 | P.PNCA_ITS ---
Progress Note: A&P Assessment and Plan (1) Acute systolic heart failure: Code(s): I50.21 - Acute systolic (congestive) heart failure Status: Acute (2) HTN (hypertension): Code(s): I10 - Essential (primary) hypertension Status: Acute (3) HLD (hyperlipidemia): Qualifiers: Hyperlipidemia type: mixed hyperlipidemia Qualified Code(s): E78.2 - Mixed hyperlipidemia Code(s): E78.5 - Hyperlipidemia, unspecified Status: Acute (4) Bradycardia: Code(s): R00.1 - Bradycardia, unspecified Status: Acute (5) Elevated troponin: Code(s): R79.89 - Other specified abnormal findings of blood chemistry Status: Acute (6) HTN (hypertension): Qualifiers: Hypertension type: primary hypertension Qualified Code(s): I10 - Essential (primary) hypertension Code(s): I10 - Essential (primary) hypertension Status: Acute Plan Diagnosis: New onset acute systolic heart failure with LVEF of 25-30% (prior echo from January/2025 showed normal LVEF of 60% and no significant valvular pathology) Elevated troponin most likely secondary to stress of acute illness; no chest pain Hypertension Hyperlipidemia Paroxysmal AFib status post ablation in 2023 Septic shock- gram-negative bacteremia; pneumonia; acute cholecystitis, liver abscess status post cholecystostomy tube placement Thrombocytopenia status post platelet transfusion Plan: -Optimize Guideline directed medical therapy. Continue metoprolol 12.5 mg p.o. b.i.d. lisinopril stopped due to history of cough with its use. Losartan 25 mg p.o. daily was started. Spironolactone 25 mg p.o. daily was added over the weekend. Add empagliflozin 10 mg daily -Limited echo in a.m. to check LVEF -Ischemia evaluation with cardiac catheterization after he recovers from his acute illness and completion of antibiotic course. This can be done with [facility]'s primary mail order biller as an outpatient. Patient remains without any chest pain. Blood pressure is stable -Check and replace electrolytes to keep potassium greater than 4 and magnesium greater than 2 -Management of other medical problems per primary team Subjective Date/time seen: 07/16/25 11:15 Interval history: Reason for encounter: New cardiomyopathy with LVEF of 25% Relevant history: 74-year-old male patient admitted with septic shock secondary to acute cholecystitis and liver abscess status post cholecystostomy tube and on IV antibiotics; he has thrombocytopenia; TTE showed depressed LVEF of 25% Interval history: No chest pain, shortness of breath, dizziness. Telemetry shows sinus rhythm with controlled rates. Review of Systems Cardiovascular: Comments: As per HPI Respiratory: Comments: As per HPI Exam Narrative: General: Alert oriented x3, no acute distress Neck: Supple, no JVD Chest: Bilaterally clear to auscultation, no rales or rhonchi Cardiac: S1, S2 +, regular rate, regular rhythm, no murmurs or rubs Extremities: No pedal edema, no skin rash Neurologic: Alert and oriented x3, no focal neurological deficits Objective Data Vital Signs Vital Signs: Vital Signs - 24 hr 07/15/25 11:59 07/15/25 12:00 07/15/25 14:00 Temperature 36.8 C Pulse Rate 67 68 84 Respiratory Rate 18 Blood Pressure 118/73 Pulse Oximetry 96 Oxygen Delivery Fraction of Inspired Oxygen 07/15/25 15:55 07/15/25 16:00 07/15/25 18:00 Temperature 36.9 C Pulse Rate 74 67 64 Respiratory Rate 16 Blood Pressure 129/77 Pulse Oximetry 95 Oxygen Delivery Fraction of Inspired Oxygen 07/15/25 19:47 07/15/25 20:00 07/15/25 20:00 Temperature 37.0 C Pulse Rate 64 79 64 Respiratory Rate 17 17 Blood Pressure 146/77 H Pulse Oximetry 96 96 Oxygen Delivery Room Air Fraction of Inspired Oxygen 07/15/25 20:41 07/15/25 22:00 07/15/25 23:21 Temperature Pulse Rate 72 67 72 Respiratory Rate 20 Blood Pressure Pulse Oximetry 91 Oxygen Delivery Room Air Fraction of Inspired Oxygen 07/16/25 00:00 07/16/25 00:00 07/16/25 00:10 Temperature 37.1 C Pulse Rate 63 71 63 Respiratory Rate 18 18 Blood Pressure 137/71 Pulse Oximetry 90 90 Oxygen Delivery Room Air Fraction of Inspired Oxygen 07/16/25 02:00 07/16/25 04:00 07/16/25 04:00 Temperature 36.9 C Pulse Rate 63 61 62 Respiratory Rate 17 Blood Pressure 143/66 H Pulse Oximetry 92 Oxygen Delivery Fraction of Inspired Oxygen 07/16/25 04:27 07/16/25 06:00 07/16/25 08:00 Temperature 37.1 C Pulse Rate 61 58 L 77 Respiratory Rate 17 18 Blood Pressure 129/68 Pulse Oximetry 92 94 Oxygen Delivery Room Air Fraction of Inspired Oxygen 07/16/25 08:52 07/16/25 09:22 Temperature Pulse Rate 97 Respiratory Rate Blood Pressure Pulse Oximetry 95 Oxygen Delivery Room Air Fraction of Inspired Oxygen Intake/Output Intake/Output: Intake & Output 07/13/25 07/14/25 07/15/25 07/16/25 23:59 23:59 23:59 23:59 Intake Total 1170 2165 1100 640 Output Total 19790 2845 2145 Balance -810 97 -0573 -2239 Meds/Results Medications: Active Medications Generic Name Dose Route Start Last Admin Trade Name Freq PRN Reason Stop Dose Admin Acetaminophen 650 mg 07/06/25 22:57 07/12/25 20:18 Acetaminophen 325 Mg Tablet PO 650 mg Q4H PRN Administration Mild Pain (1-3) or Fever Al Hydrox/Mg Hydrox/Simethicone 30 ml 07/06/25 22:57 Mag Hydrox/Al Hydrox/Simeth 30 Ml Udc PO QID PRN Dyspepsia Artificial Tears 1 drop 07/11/25 09:15 07/16/25 09:23 Artificial Tears Ophth Soln 15 Ml Bottle EACH EYE 1 drop QID PRN Administration Dry Eye(s) Bisacodyl 5 mg 07/06/25 22:57 Bisacodyl 5 Mg Tablet Ec PO DAILY PRN Constipation Bisacodyl 10 mg 07/12/25 07:55 Bisacodyl 10 Mg Suppository RECTAL QAM PRN Constipation Dextrose 12.5 gm 07/06/25 23:18 Dextrose 50% 25 Gm/50 Ml Syringe IV PUSH PRN PRN Hypoglycemia Protocol Diphenhydramine HCl 25 mg 07/15/25 03:40 07/15/25 23:23 Diphenhydramine Hcl Cap 25 Mg Capsule PO 25 mg Q6H PRN Administration Itching Enoxaparin Sodium 40 mg 07/07/25 09:00 07/08/25 07:47 Enoxaparin 40 Mg/0.4 Ml Syringe SUB-Q Not Given On Hold: 07/08/25 10:03 DAILY XENIA Famotidine 20 mg 07/14/25 21:00 07/16/25 09:22 Famotidine 20 Mg Tablet PO 20 mg Q12HR XENIA Administration Fluticasone Propionate 1 spray 07/07/25 09:00 07/16/25 09:22 Fluticasone Propionate 0.05% Na Spr 16 Gm Btl (*Bkc) NASAL 1 spray Q12HR XENIA Administration Glucagon 1 mg 07/06/25 23:18 Glucagon For Inj 1 Mg Vial IM PRN PRN Hypoglycemia Protocol Glucose 15 gm 07/06/25 23:18 Glucose Oral Gel 15 Gm Of Glucse In 37.5 Gm Tube PO PRN PRN Hypoglycemia Protocol Dextrose 1,000 mls @ 100 mls/hr 07/06/25 23:18 Dextrose 5% 1,000 Ml IVPB PRN PRN Hypoglycemia Protocol Ampicillin Sodium/Sulbactam 100 mls @ 200 mls/hr 07/11/25 10:30 07/16/25 07:1 4 Sodium 3 gm/ Sodium Chloride IVPB Infused Q6HR XENIA Infusion Insulin Aspart 3 - 6 units 07/07/25 08:00 07/16/25 09:12 Insulin Aspart (*Bkc) 100 Units/Ml SUB-Q Not Given TIDWM XENIA Protocol Losartan Potassium 25 mg 07/15/25 09:00 07/16/25 09:22 Losartan Potassium 25 Mg Tablet PO 25 mg DAILY XENIA Administration Melatonin 5 mg 07/15/25 14:56 Melatonin 5 Mg Tablet PO HS PRN Sleep Metoprolol Tartrate 12.5 mg 07/10/25 21:00 07/16/25 09:22 Metoprolol Tartrate 12.5 Mg Tablet PO 12.5 mg Q12HR XENIA Administration Morphine Sulfate 2 mg 07/11/25 12:23 Morphine Sulfate (*Crx) 2 Mg/Ml Inj IV PUSH Q2H PRN Pain Rated 7-10 Morphine Sulfate 4 mg 07/11/25 12:23 07/11/25 13:30 Morphine Sulfate (*Crx) 4 Mg/Ml Inj IV PUSH 4 mg ONCE PRN Administration Preprocedure Ondansetron HCl 4 mg 07/06/25 22:57 07/09/25 13:54 Ondansetron Inj 4 Mg/2 Ml Vial IV PUSH 4 mg Q6H PRN Administration Nausea And Vomiting Polyethylene Glycol 17 gm 07/12/25 09:00 07/16/25 09:21 Polyethylene Glycol 3350 17 Gm Powd.Pack PO Not Given QAM XENIA Sodium Chloride 10 ml 07/07/25 14:00 07/16/25 06:44 Central Line Flush IV PUSH 10 ml Q8HR XENIA Administration Sodium Chloride 20 ml 07/07/25 06:38 07/16/25 06:44 Central Line Flush IV PUSH 20 ml PRN PRN Administration after blood draws Spironolactone 25 mg 07/14/25 09:50 07/16/25 09:22 Spironolactone 25 Mg Tablet PO 25 mg QAM XENIA Administration Valacyclovir HCl 1,000 mg 07/15/25 06:00 07/16/25 06:44 Valacyclovir Hcl 500 Mg Tablet PO 1,000 mg Q8HR XENIA Administration Radiology Results: ITS Impressions Upper Quadrant Ultrasound 07/09/25 14:30 IMPRESSION: 1. Normal right upper quadrant ultrasound with no intra or extrahepatic biliary ductal dilation. Chest X-Ray 07/10/25 08:10 IMPRESSION: 1. Unchanged elevation right hemidiaphragm opacity bilateral lower lung zones which could represent atelectasis or pneumonia. Venous Doppler Study 07/10/25 15:15 Impression: Negative for DVT. Chest/Abdomen/Pelvis CT 07/10/25 15:44 IMPRESSION: 1. New groundglass opacities in right lung upper lobe, consistent with pneumonia. 2. Small pleural effusions. 3. Distended gallbladder with gallstone suspicious for acute cholecystitis. 4. Worsened liver mass near the gallbladder, consistent with abscess. Cholecystostomy 07/11/25 14:51 IMPRESSION: 1. Successful ultrasound-guided cholecystostomy tube placement. 2. 20 mL bile was sent for aerobic, anaerobic, and fungal cultures. 3. The catheter will be managed by Dr. Sarabia. A catheter cholangiogram may be performed not less than 48 hours after tube placement if clinically indicated to assess cystic duct patency. If cholecystectomy is not eventually performed and the infectious episode has resolved, the tube may be removed over a guidewire, preferably not less than 3 weeks after placement to allow time for a mature catheter tract to form to prevent bile leakage and peritonitis. Labs Labs: Laboratory Results - last 24 hr 07/15/25 07/15/25 07/15/25 11:12 16:26 19:53 Creatinine Estim Creat Clear Calc Estimated GFR POC Capillary Glucose 148 H 114 H 80 Iron TIBC % Saturation Ferritin 07/16/25 07/16/25 06:52 07:31 Creatinine 0.72 Estim Creat Clear Calc 91 Estimated GFR > 60 POC Capillary Glucose 98 Iron 53 TIBC 245 L % Saturation 22 Ferritin 467.00 H
--- NOTE | 2025-07-16 12:33 | PM.PNGS ---
Progress Note: A&P Assessment and Plan (1) Acute calculous cholecystitis: Code(s): K80.00 - Calculus of gallbladder with acute cholecystitis without obstruction Status: Acute Assessment and Plan: Resolving after cholecystostomy tube was placed. Patient denies any abdominal pain. Liver enzymes normalized. Continue Unasyn. Could consider cholecystogram closer to discharge time or a few weeks after discharge. (2) Liver abscess: Code(s): K75.0 - Abscess of liver Status: Acute Assessment and Plan: Per infectious disease specialist, IV antibiotics for total of 2 weeks starting from time of cholecystostomy tube placement which was 07/11/2025. Discharge planning will need to consider this unless patient in hospital until and including July 25. (3) Thrombocytopenia: Code(s): D69.6 - Thrombocytopenia, unspecified Status: Acute Assessment and Plan: Continues to improve. Platelet count now 141,000. Plan Discussed patient's case and plan of care with Dr. Sarabia. Subjective Subjective Date/Time Seen: 07/16/25 12:33 Patient reports: no new complaints, tolerating a regular diet (Low-fat), flatus and bowel movement Interval history: Patient is sitting up in chair getting ready to eat lunch. No abdominal pain noted. Percutaneous cholecystostomy tube patent and draining bilious fluid. WBC 9.0. Bilirubin and LFTs normal yesterday. Exam GI: Inspection: distended GI Palp: Yes Soft to palpation, No Tenderness to palpation present (GI) and No Guarding due to palpation present (GI) Other: Cholecystostomy tube patent and draining bilious fluid. Objective Data Vital Signs Vital Signs: Vital Signs - 24 hr 07/15/25 14:00 07/15/25 15:55 07/15/25 16:00 Temperature 98.4 F Pulse Rate 84 74 67 Respiratory Rate 16 Blood Pressure 129/77 Pulse Oximetry 95 Oxygen Delivery Fraction of Inspired Oxygen 07/15/25 18:00 07/15/25 19:47 07/15/25 20:00 Temperature 98.6 F Pulse Rate 64 64 79 Respiratory Rate 17 Blood Pressure 146/77 H Pulse Oximetry 96 Oxygen Delivery Fraction of Inspired Oxygen 07/15/25 20:00 07/15/25 20:41 07/15/25 22:00 Temperature Pulse Rate 64 72 67 Respiratory Rate 17 20 Blood Pressure Pulse Oximetry 96 91 Oxygen Delivery Room Air Room Air Fraction of Inspired Oxygen 21 07/15/25 23:21 07/16/25 00:00 07/16/25 00:00 Temperature 98.7 F Pulse Rate 72 63 71 Respiratory Rate 18 Blood Pressure 137/71 Pulse Oximetry 90 Oxygen Delivery Fraction of Inspired Oxygen 07/16/25 00:10 07/16/25 02:00 07/16/25 04:00 Temperature 98.5 F Pulse Rate 63 63 61 Respiratory Rate 18 17 Blood Pressure 143/66 H Pulse Oximetry 90 92 Oxygen Delivery Room Air Fraction of Inspired Oxygen 07/16/25 04:00 07/16/25 04:27 07/16/25 06:00 Temperature Pulse Rate 62 61 58 L Respiratory Rate 17 Blood Pressure Pulse Oximetry 92 Oxygen Delivery Room Air Fraction of Inspired Oxygen 07/16/25 08:00 07/16/25 08:52 07/16/25 09:22 Temperature 98.8 F Pulse Rate 77 97 Respiratory Rate 18 Blood Pressure 129/68 Pulse Oximetry 94 95 Oxygen Delivery Room Air Fraction of Inspired Oxygen Intake/Output Intake/Output: Intake & Output 07/13/25 07/14/25 07/15/25 07/16/25 23:59 23:59 23:59 23:59 Intake Total 1170 2165 1100 640 Output Total 1979 0620 8107 2149 Balance -816 46 -3726 -8736 Meds/Results Medications: Active Medications Generic Name Dose Route Start Last Admin Trade Name Freq PRN Reason Stop Dose Admin Acetaminophen 650 mg 07/06/25 22:57 07/12/25 20:18 Acetaminophen 325 Mg Tablet PO 650 mg Q4H PRN Administration Mild Pain (1-3) or Fever Al Hydrox/Mg Hydrox/Simethicone 30 ml 07/06/25 22:57 Mag Hydrox/Al Hydrox/Simeth 30 Ml Udc PO QID PRN Dyspepsia Artificial Tears 1 drop 07/11/25 09:15 07/16/25 09:23 Artificial Tears Ophth Soln 15 Ml Bottle EACH EYE 1 drop QID PRN Administration Dry Eye(s) Bisacodyl 5 mg 07/06/25 22:57 Bisacodyl 5 Mg Tablet Ec PO DAILY PRN Constipation Bisacodyl 10 mg 07/12/25 07:55 Bisacodyl 10 Mg Suppository RECTAL QAM PRN Constipation Dextrose 12.5 gm 07/06/25 23:18 Dextrose 50% 25 Gm/50 Ml Syringe IV PUSH PRN PRN Hypoglycemia Protocol Diphenhydramine HCl 25 mg 07/15/25 03:40 07/15/25 23:23 Diphenhydramine Hcl Cap 25 Mg Capsule PO 25 mg Q6H PRN Administration Itching Empagliflozin 10 mg 07/16/25 11:20 Empagliflozin 10 Mg Tablet PO DAILY XENIA Enoxaparin Sodium 40 mg 07/07/25 09:00 07/08/25 07:47 Enoxaparin 40 Mg/0.4 Ml Syringe SUB-Q Not Given On Hold: 07/08/25 10:03 DAILY XENIA Famotidine 20 mg 07/14/25 21:00 07/16/25 09:22 Famotidine 20 Mg Tablet PO 20 mg Q12HR XENIA Administration Fluticasone Propionate 1 spray 07/07/25 09:00 07/16/25 09:22 Fluticasone Propionate 0.05% Na Spr 16 Gm Btl (*Bkc) NASAL 1 spray Q12HR XENIA Administration Glucagon 1 mg 07/06/25 23:18 Glucagon For Inj 1 Mg Vial IM PRN PRN Hypoglycemia Protocol Glucose 15 gm 07/06/25 23:18 Glucose Oral Gel 15 Gm Of Glucse In 37.5 Gm Tube PO PRN PRN Hypoglycemia Protocol Dextrose 1,000 mls @ 100 mls/hr 07/06/25 23:18 Dextrose 5% 1,000 Ml IVPB PRN PRN Hypoglycemia Protocol Ampicillin Sodium/Sulbactam 100 mls @ 200 mls/hr 07/11/25 10:30 07/16/25 07:14 Sodium 3 gm/ Sodium Chloride IVPB Infused Q6HR XENIA Infusion Insulin Aspart 3 - 6 units 07/07/25 08:00 07/16/25 09:12 Insulin Aspart (*Bkc) 100 Units/Ml SUB-Q Not Given TIDWM XENIA Protocol Losartan Potassium 25 mg 07/15/25 09:00 07/16/25 09:22 Losartan Potassium 25 Mg Tablet PO 25 mg DAILY XENIA Administration Melatonin 5 mg 07/15/25 14:56 Melatonin 5 Mg Tablet PO HS PRN Sleep Metoprolol Tartrate 12.5 mg 07/10/25 21:00 07/16/25 09:22 Metoprolol Tartrate 12.5 Mg Tablet PO 12.5 mg Q12HR XENIA Administration Morphine Sulfate 4 mg 07/11/25 12:23 07/11/25 13:30 Morphine Sulfate (*Crx) 4 Mg/Ml Inj IV PUSH 4 mg ONCE PRN Administration Preprocedure Morphine Sulfate 2 mg 07/16/25 12:13 Morphine Sulfate (*Crx) 4 Mg/Ml Inj IV PUSH Q2H PRN Pain Rated 7-10 Ondansetron HCl 4 mg 07/06/25 22:57 07/09/25 13:54 Ondansetron Inj 4 Mg/2 Ml Vial IV PUSH 4 mg Q6H PRN Administration Nausea And Vomiting Perflutren Lipid Microsphere 0 ml 07/16/25 11:20 Perflutren Lipid Microspheres 1.5 Ml Vial Diluted To 10 Ml Total Volume IV PUSH 07/19/25 11:20 ONCE PRN adequate visualization Protocol Polyethylene Glycol 17 gm 07/12/25 09:00 07/16/25 09:21 Polyethylene Glycol 3350 17 Gm Powd.Pack PO Not Given QAM XENIA Sodium Chloride 10 ml 07/07/25 14:00 07/16/25 06:44 Central Line Flush IV PUSH 10 ml Q8HR XENIA Administration Sodium Chloride 20 ml 07/07/25 06:38 07/16/25 06:44 Central Line Flush IV PUSH 20 ml PRN PRN Administration after blood draws Spironolactone 25 mg 07/14/25 09:50 07/16/25 09:22 Spironolactone 25 Mg Tablet PO 25 mg QAM XENIA Administration Valacyclovir HCl 1,000 mg 07/15/25 06:00 07/16/25 06:44 Valacyclovir Hcl 500 Mg Tablet PO 1,000 mg Q8HR XENIA Administration Radiology Results: ITS Impressions Upper Quadrant Ultrasound 07/09/25 14:30 IMPRESSION: 1. Normal right upper quadrant ultrasound with no intra or extrahepatic biliary ductal dilation. Chest X-Ray 07/10/25 08:10 IMPRESSION: 1. Unchanged elevation right hemidiaphragm opacity bilateral lower lung zones which could represent atelectasis or pneumonia. Venous Doppler Study 07/10/25 15:15 Impression: Negative for DVT. Chest/Abdomen/Pelvis CT 07/10/25 15:44 IMPRESSION: 1. New groundglass opacities in right lung upper lobe, consistent with pneumonia. 2. Small pleural effusions. 3. Distended gallbladder with gallstone suspicious for acute cholecystitis. 4. Worsened liver mass near the gallbladder, consistent with abscess. Cholecystostomy 07/11/25 14:51 IMPRESSION: 1. Successful ultrasound-guided cholecystostomy tube placement. 2. 20 mL bile was sent for aerobic, anaerobic, and fungal cultures. 3. The catheter will be managed by Dr. Sarabia. A catheter cholangiogram may be performed not less than 48 hours after tube placement if clinically indicated to assess cystic duct patency. If cholecystectomy is not eventually performed and the infectious episode has resolved, the tube may be removed over a guidewire, preferably not less than 3 weeks after placement to allow time for a mature catheter tract to form to prevent bile leakage and peritonitis. Labs Labs: Laboratory Results - last 24 hr 07/15/25 07/15/25 07/16/25 16:26 19:53 06:52 Creatinine 0.72 Estim Creat Clear Calc 91 Estimated GFR > 60 POC Capillary Glucose 114 H 80 Iron 53 TIBC 245 L % Saturation 22 Ferritin 467.00 H 07/16/25 07:31 Creatinine Estim Creat Clear Calc Estimated GFR POC Capillary Glucose 98 Iron TIBC % Saturation Ferritin
[2025-07-16] MEDS: EMPAGLIFLOZIN 10 MG TABLET PO (13:19)
--- NOTE | 2025-07-16 14:15 | PM.IMPN ---
Progress Note: A&P Assessment and Plan (1) Septic shock: Code(s): A41.9 - Sepsis, unspecified organism; R65.21 - Severe sepsis with septic shock Status: Acute Assessment and Plan: Pansensitive E coli and bacteriodes bacteremia CT chest showed pneumonia RUL with acute cholecystitis Lower extremity Dopplers are negative for DVT Continue Abx, ID and Gen surgery follorwing (2) Right lower lobe pneumonia: Qualifiers: Pneumonia type: due to unspecified organism Qualified Code(s): J18.9 - Pneumonia, unspecified organism Code(s): J18.9 - Pneumonia, unspecified organism Status: Acute Assessment and Plan: Now on room air -respiratory panel will has been ordered and negative Add incentive spirometry Now on room air Continue abx ,ID following (3) Abnormal computed tomography of gallbladder: Code(s): R93.2 - Abnormal findings on diagnostic imaging of liver and biliary tract Status: Acute Assessment and Plan: See above (4) Congestive heart failure: Code(s): I50.9 - Heart failure, unspecified Status: Acute Assessment and Plan: Chest x-ray shows diffuse bilateral infiltrates. Patient had elevated BNP on presentation Echocardiogram shows EF of 25-30% COntineu losartan 25mg, Spironolactone and Metoprolol Limited EHCO today per cards Cardiology recommends outpatient cardiac cath with primary cardiology (5) Thrombocytopenia: Code(s): D69.6 - Thrombocytopenia, unspecified Status: Acute Assessment and Plan: Multifactorial thrombocytopenia likely secondary to sepsis. I will transfuse 2 units of platelets in anticipation of invasive procedure. Lovenox some and patient is on SCDs 07/11 patient was given 2 units platelets for cholecystostomy placement Plts 141 today (6) Electrolyte abnormality: Code(s): E87.8 - Other disorders of electrolyte and fluid balance, not elsewhere classified Status: Acute Assessment and Plan: Potassium and calcium replacement ordered Plan Acute cholecystitis with liver abscess on Cholecystostomy drainage Continue Unasyn per ID CT AP reviewed Blood culture positive for pansensitive E coli ad Bacteriodes, repeat blood culture still pending Cholecystostomy drainage culture positive for pansensitive E coli and Enterococcus faecium Awaiting ID recs for discharge planning, awaiting call back from ID ID and Gen surgery following DVT prophylaxis: On Sq Lovenox, thrombocytopenia resolved Stress ulcer prophylaxis: Ppi Nutrition: low fat diet . Advance as per General surgery Code Status: Full code Subjective Date/time seen: 07/16/25 14:15 Interval history: Patient comfortable at bedside for PICC line today and awaiting final recs from ID for discharge Review of Systems Review of Systems: 12 systems were reviewed with pertinent positives and negatives per HPI. Except as documented in the HPI, all other systems were reviewed and are negative. All systems reviewed & are unremarkable except as noted in HPI and below Exam Narrative: General: Pleasant gentleman in no acute distress HEENT:? Pupils equal reactive, sclerae is clear, moist oral mucosa Neck:? Supple Respiratory:? Coarse breath sounds bilaterally, decreased at bases, no wheezing, no significant crackles Cardiac:? S1-S2 normal, regular rate and rhythm Abdomen:? Soft, nontender, nondistended with normoactive bowel sounds, cholecystostomy drain in the right upper quadrant with dark liquid output Extremities:? No significant edema Neuro:? Patient awake, alert, oriented x3, nonfocal, answers to questions appropriately and follows simple commands in all extremities Skin:? Warm and dry, no skin lesions noted Psych:? Normal mentation and affect Const: Other: Mildly ill-appearing, obese, appears stated age HENMT: Other: Mucous membranes are dry, upper and lower dentures in place Eyes: Other: Mild scleral icterus, no conjunctival pallor, pupils are equal and reactive Neck: Other: No JVD, no lymphadenopathy, right IJ present Resp: Other: Clear to auscultation bilaterally, no increased work of breathing Cardio: Other: Sinus tachycardia, 2+ bilateral radial pedal pulses, no JVD, no murmur GI: Other: Distended, nontender to palpation, hypoactive bowel sounds, no organomegaly : Other: Ac catheter in place with cloudy dark kirsty urine Skin: Other: Warm to touch, mild jaundice, no pallor Neuro: Other: Alert oriented x4, speech is clear, no facial asymmetry, no localizing neurologic deficits noted during the course of conversation Extrem: Other: No clubbing, cyanosis or edema, moves all extremities equally Psych: Other: Appropriate mood and affect, pleasant and cooperative, judgment insight intact Objective Data Vital Signs Vital Signs: Vital Signs - 24 hr 07/15/25 15:55 07/15/25 16:00 07/15/25 18:00 Temperature 98.4 F Pulse Rate 74 67 64 Respiratory Rate 16 Blood Pressure 129/77 Pulse Oximetry 95 Oxygen Delivery Fraction of Inspired Oxygen 07/15/25 19:47 07/15/25 20:00 07/15/25 20:00 Temperature 98.6 F Pulse Rate 64 79 64 Respiratory Rate 17 17 Blood Pressure 146/77 H Pulse Oximetry 96 96 Oxygen Delivery Room Air Fraction of Inspired Oxygen 07/15/25 20:41 07/15/25 22:00 07/15/25 23:21 Temperature Pulse Rate 72 67 72 Respiratory Rate 20 Blood Pressure Pulse Oximetry 91 Oxygen Delivery Room Air Fraction of Inspired Oxygen 07/16/25 00:00 07/16/25 00:00 07/16/25 00:10 Temperature 98.7 F Pulse Rate 63 71 63 Respiratory Rate 18 18 Blood Pressure 137/71 Pulse Oximetry 90 90 Oxygen Delivery Room Air Fraction of Inspired Oxygen 07/16/25 02:00 07/16/25 04:00 07/16/25 04:00 Temperature 98.5 F Pulse Rate 63 61 62 Respiratory Rate 17 Blood Pressure 143/66 H Pulse Oximetry 92 Oxygen Delivery Fraction of Inspired Oxygen 07/16/25 04:27 07/16/25 06:00 07/16/25 08:00 Temperature 98.8 F Pulse Rate 61 58 L 77 Respiratory Rate 17 18 Blood Pressure 129/68 Pulse Oximetry 92 94 Oxygen Delivery Room Air Fraction of Inspired Oxygen 07/16/25 08:00 07/16/25 08:52 07/16/25 09:22 Temperature Pulse Rate 80 97 Respiratory Rate Blood Pressure Pulse Oximetry 95 Oxygen Delivery Room Air Fraction of Inspired Oxygen 07/16/25 10:00 07/16/25 12:00 07/16/25 12:00 Temperature 98.6 F Pulse Rate 77 79 68 Respiratory Rate 16 Blood Pressure 122/78 Pulse Oximetry 98 Oxygen Delivery Fraction of Inspired Oxygen Intake/Output Intake/Output: Intake & Output 07/13/25 07/14/25 07/15/25 07/16/25 23:59 23:59 23:59 23:59 Intake Total 1170 2165 1100 760 Output Total 6863 7255 7473 2141 Balance 810 32 -9920 -6526 Meds/Results Medications: Active Medications Generic Name Dose Route Start Last Admin Trade Name Freq PRN Reason Stop Dose Admin Acetaminophen 650 mg 07/06/25 22:57 07/12/25 20:18 Acetaminophen 325 Mg Tablet PO 650 mg Q4H PRN Administration Mild Pain (1-3) or Fever Al Hydrox/Mg Hydrox/Simethicone 30 ml 07/06/25 22:57 Mag Hydrox/Al Hydrox/Simeth 30 Ml Udc PO QID PRN Dyspepsia Artificial Tears 1 drop 07/11/25 09:15 07/16/25 09:23 Artificial Tears Ophth Soln 15 Ml Bottle EACH EYE 1 drop QID PRN Administration Dry Eye(s) Bisacodyl 5 mg 07/06/25 22:57 Bisacodyl 5 Mg Tablet Ec PO DAILY PRN Constipation Bisacodyl 10 mg 07/12/25 07:55 Bisacodyl 10 Mg Suppository RECTAL QAM PRN Constipation Dextrose 12.5 gm 07/06/25 23:18 Dextrose 50% 25 Gm/50 Ml Syringe IV PUSH PRN PRN Hypoglycemia Protocol Diphenhydramine HCl 25 mg 07/15/25 03:40 07/15/25 23:23 Diphenhydramine Hcl Cap 25 Mg Capsule PO 25 mg Q6H PRN Administration Itching Empagliflozin 10 mg 07/16/25 11:20 07/16/25 13:19 Empagliflozin 10 Mg Tablet PO 10 mg DAILY XENIA Administration Enoxaparin Sodium 40 mg 07/07/25 09:00 07/08/25 07:47 Enoxaparin 40 Mg/0.4 Ml Syringe SUB-Q Not Given On Hold: 07/08/25 10:03 DAILY XENIA Famotidine 20 mg 07/14/25 21:00 07/16/25 09:22 Famotidine 20 Mg Tablet PO 20 mg Q12HR XENIA Administration Fluticasone Propionate 1 spray 07/07/25 09:00 07/16/25 09:22 Fluticasone Propionate 0.05% Na Spr 16 Gm Btl (*Bkc) NASAL 1 spray Q12HR XENIA Administration Glucagon 1 mg 07/06/25 23:18 Glucagon For Inj 1 Mg Vial IM PRN PRN Hypoglycemia Protocol Glucose 15 gm 07/06/25 23:18 Glucose Oral Gel 15 Gm Of Glucse In 37.5 Gm Tube PO PRN PRN Hypoglycemia Protocol Dextrose 1,000 mls @ 100 mls/hr 07/06/25 23:18 Dextrose 5% 1,000 Ml IVPB PRN PRN Hypoglycemia Protocol Ampicillin Sodium/Sulbactam 100 mls @ 200 mls/hr 07/11/25 10:30 07/16/25 13:18 Sodium 3 gm/ Sodium Chloride IVPB 200 mls/hr Q6HR XENIA Administration Insulin Aspart 3 - 6 units 07/07/25 08:00 07/16/25 12:44 Insulin Aspart (*Bkc) 100 Units/Ml SUB-Q Not Given TIDWM XENIA Protocol Losartan Potassium 25 mg 07/15/25 09:00 07/16/25 09:22 Losartan Potassium 25 Mg Tablet PO 25 mg DAILY XENIA Administration Melatonin 5 mg 07/15/25 14:56 Melatonin 5 Mg Tablet PO HS PRN Sleep Metoprolol Tartrate 12.5 mg 07/10/25 21:00 07/16/25 09:22 Metoprolol Tartrate 12.5 Mg Tablet PO 12.5 mg Q12HR XENIA Administration Morphine Sulfate 4 mg 07/11/25 12:23 07/11/25 13:30 Morphine Sulfate (*Crx) 4 Mg/Ml Inj IV PUSH 4 mg ONCE PRN Administration Preprocedure Morphine Sulfate 2 mg 07/16/25 12:13 Morphine Sulfate (*Crx) 4 Mg/Ml Inj IV PUSH Q2H PRN Pain Rated 7-10 Ondansetron HCl 4 mg 07/06/25 22:57 07/09/25 13:54 Ondansetron Inj 4 Mg/2 Ml Vial IV PUSH 4 mg Q6H PRN Administration Nausea And Vomiting Perflutren Lipid Microsphere 0 ml 07/16/25 11:20 Perflutren Lipid Microspheres 1.5 Ml Vial Diluted To 10 Ml Total Volume IV PUSH 07/19/25 11:20 ONCE PRN adequate visualization Protocol Polyethylene Glycol 17 gm 07/12/25 09:00 07/16/25 09:21 Polyethylene Glycol 3350 17 Gm Powd.Pack PO Not Given QAM XENIA Sodium Chloride 10 ml 07/07/25 14:00 07/16/25 13:19 Central Line Flush IV PUSH 10 ml Q8HR XENIA Administration Sodium Chloride 20 ml 07/07/25 06:38 07/16/25 06:44 Central Line Flush IV PUSH 20 ml PRN PRN Administration after blood draws Spironolactone 25 mg 07/14/25 09:50 07/16/25 09:22 Spironolactone 25 Mg Tablet PO 25 mg QAM XENIA Administration Valacyclovir HCl 1,000 mg 07/15/25 06:00 07/16/25 13:19 Valacyclovir Hcl 500 Mg Tablet PO 1,000 mg Q8HR XENIA Administration Radiology Results: ITS Impressions Upper Quadrant Ultrasound 07/09/25 14:30 IMPRESSION: 1. Normal right upper quadrant ultrasound with no intra or extrahepatic biliary ductal dilation. Chest X-Ray 07/10/25 08:10 IMPRESSION: 1. Unchanged elevation right hemidiaphragm opacity bilateral lower lung zones which could represent atelectasis or pneumonia. Venous Doppler Study 07/10/25 15:15 Impression: Negative for DVT. Chest/Abdomen/Pelvis CT 07/10/25 15:44 IMPRESSION: 1. New groundglass opacities in right lung upper lobe, consistent with pneumonia. 2. Small pleural effusions. 3. Distended gallbladder with gallstone suspicious for acute cholecystitis. 4. Worsened liver mass near the gallbladder, consistent with abscess. Cholecystostomy 07/11/25 14:51 IMPRESSION: 1. Successful ultrasound-guided cholecystostomy tube placement. 2. 20 mL bile was sent for aerobic, anaerobic, and fungal cultures. 3. The catheter will be managed by Dr. Sarabia. A catheter cholangiogram may be performed not less than 48 hours after tube placement if clinically indicated to assess cystic duct patency. If cholecystectomy is not eventually performed and the infectious episode has resolved, the tube may be removed over a guidewire, preferably not less than 3 weeks after placement to allow time for a mature catheter tract to form to prevent bile leakage and peritonitis. Labs Labs: Laboratory Results - last 24 hr 07/15/25 07/15/25 07/16/25 16:26 19:53 06:52 Creatinine 0.72 Estim Creat Clear Calc 91 Estimated GFR > 60 POC Capillary Glucose 114 H 80 Iron 53 TIBC 245 L % Saturation 22 Ferritin 467.00 H 07/16/25 07:31 Creatinine Estim Creat Clear Calc Estimated GFR POC Capillary Glucose 98 Iron TIBC % Saturation Ferritin Quality VTE Prophylaxis VTE prophylaxis: mechanical ordered
[2025-07-16] MEDS: LIDOCAINE 1% PF INJ 5 ML VIAL INFILTRATE (15:45)
--- NOTE | 2025-07-16 19:09 | WPDINFPN2 ---
Progress Note: A&P Assessment and Plan (1) Gram negative septicemia: Code(s): A41.50 - Gram-negative sepsis, unspecified Status: Acute (2) Septic shock: Code(s): A41.9 - Sepsis, unspecified organism; R65.21 - Severe sepsis with septic shock Status: Acute (3) Abdominal pain in male: Code(s): R10.9 - Unspecified abdominal pain Status: Acute (4) Diarrhea: Code(s): R19.7 - Diarrhea, unspecified Status: Acute (5) Elevated LFTs: Code(s): R79.89 - Other specified abnormal findings of blood chemistry Status: Acute (6) Acute hypoxic respiratory failure: Code(s): J96.01 - Acute respiratory failure with hypoxia Status: Acute (7) Thrombocytopenia: Code(s): D69.6 - Thrombocytopenia, unspecified Status: Acute (8) Ejection fraction < 50%: Status: Acute Plan # Pansensitive E coli and Bacteroides bacteremia associated with complicated cholecystitis with associated liver abscess. -- immediate follow-up blood cultures 07/08 again with delayed growth of Gram-negative rods. 07/10 blood cultures remain negative. -- now status post IR cholecystostomy tube placement. Procedure cultures pending. # Severe sepsis with septic shock. -- now off of pressors. # Hypoxemia. -- may be a manifestation of sepsis, heart failure with pulmonary edema, or pneumonia. -- improved. # Diminished ejection fraction. # Mild transaminitis. -- improving. Bilirubin normalized. # Thrombocytopenia. -- suspect sepsis versus medication induced. -- slowly improving. Plan: Unasyn for now Not clear if enterococcus is contrinbuting. for outpt iv abx, plan ertapenem plus daptom8 mg/kg x at least 2 weeks. will consider oral stepdwon after. OK for telemed visit for follow up wiht me Pull IJ and place picc. d/w Hospitalist svc. Plts better Patient was seen via video telehealth consultation with the assistance of staff. Chart, data, and patient independently reviewed. Patient was located at [facility] while I was located in my [place] office. Received verbal consent from patient. Subjective Date/time seen: 07/16/25 19:09 Interval history: no fever. comfortable up in chair. no RUQ pain. tolerating diet Exam Narrative: up in chair. good spirits. family with him Breathing comfortably . Abdomen with some distention. Cholecystostomy tube drainage with chocolate colored liquid output. No evidence of rash. No pruritus. Left IJ present and placed at outside institution. No inflammation at site. Objective Data Vital Signs Vital Signs: Vital Signs - 24 hr 07/15/25 19:47 07/15/25 20:00 07/15/25 20:00 Temperature 37.0 C Pulse Rate 64 79 64 Respiratory Rate 17 17 Blood Pressure 146/77 H Pulse Oximetry 96 96 Oxygen Delivery Room Air Fraction of Inspired Oxygen 07/15/25 20:41 07/15/25 22:00 07/15/25 23:21 Temperature Pulse Rate 72 67 72 Respiratory Rate 20 Blood Pressure Pulse Oximetry 91 Oxygen Delivery Room Air Fraction of Inspired Oxygen 21 07/16/25 00:00 07/16/25 00:00 07/16/25 00:10 Temperature 37.1 C Pulse Rate 63 71 63 Respiratory Rate 18 18 Blood Pressure 137/71 Pulse Oximetry 90 90 Oxygen Delivery Room Air Fraction of Inspired Oxygen 07/16/25 02:00 07/16/25 04:00 07/16/25 04:00 Temperature 36.9 C Pulse Rate 63 61 62 Respiratory Rate 17 Blood Pressure 143/66 H Pulse Oximetry 92 Oxygen Delivery Fraction of Inspired Oxygen 07/16/25 04:27 07/16/25 06:00 07/16/25 08:00 Temperature 37.1 C Pulse Rate 61 58 L 77 Respiratory Rate 17 18 Blood Pressure 129/68 Pulse Oximetry 92 94 Oxygen Delivery Room Air Fraction of Inspired Oxygen 07/16/25 08:00 07/16/25 08:52 07/16/25 09:22 Temperature Pulse Rate 80 97 Respiratory Rate Blood Pressure Pulse Oximetry 95 Oxygen Delivery Room Air Fraction of Inspired Oxygen 07/16/25 10:00 07/16/25 12:00 07/16/25 12:00 Temperature 37.0 C Pulse Rate 77 79 68 Respiratory Rate 16 Blood Pressure 122/78 Pulse Oximetry 98 Oxygen Delivery Fraction of Inspired Oxygen 07/16/25 14:00 07/16/25 16:00 07/16/25 16:39 Temperature 37.1 C Pulse Rate 70 77 60 Respiratory Rate 18 Blood Pressure 139/79 Pulse Oximetry 95 Oxygen Delivery Fraction of Inspired Oxygen Intake/Output Intake/Output: Intake & Output 07/13/25 07/14/25 07/15/25 07/16/25 23:59 23:59 23:59 23:59 Intake Total 1170 2165 1100 1460 Output Total 1979 2089 2845 3020 Balance -810 52 -0664 -9021 Meds/Results Medications: Active Medications Generic Name Dose Route Start Last Admin Trade Name Freq PRN Reason Stop Dose Admin Acetaminophen 650 mg 07/06/25 22:57 07/12/25 20:18 Acetaminophen 325 Mg Tablet PO 650 mg Q4H PRN Administration Mild Pain (1-3) or Fever Al Hydrox/Mg Hydrox/Simethicone 30 ml 07/06/25 22:57 Mag Hydrox/Al Hydrox/Simeth 30 Ml Udc PO QID PRN Dyspepsia Artificial Tears 1 drop 07/11/25 09:15 07/16/25 09:23 Artificial Tears Ophth Soln 15 Ml Bottle EACH EYE 1 drop QID PRN Administration Dry Eye(s) Bisacodyl 5 mg 07/06/25 22:57 Bisacodyl 5 Mg Tablet Ec PO DAILY PRN Constipation Bisacodyl 10 mg 07/12/25 07:55 Bisacodyl 10 Mg Suppository RECTAL QAM PRN Constipation Dextrose 12.5 gm 07/06/25 23:18 Dextrose 50% 25 Gm/50 Ml Syringe IV PUSH PRN PRN Hypoglycemia Protocol Diphenhydramine HCl 25 mg 07/15/25 03:40 07/15/25 23:23 Diphenhydramine Hcl Cap 25 Mg Capsule PO 25 mg Q6H PRN Administration Itching Empagliflozin 10 mg 07/16/25 11:20 07/16/25 13:19 Empagliflozin 10 Mg Tablet PO 10 mg DAILY XENIA Administration Enoxaparin Sodium 40 mg 07/07/25 09:00 07/08/25 07:47 Enoxaparin 40 Mg/0.4 Ml Syringe SUB-Q Not Given DAILY XENIA Famotidine 20 mg 07/14/25 21:00 07/16/25 09:22 Famotidine 20 Mg Tablet PO 20 mg Q12HR XENIA Administration Fluticasone Propionate 1 spray 07/07/25 09:00 07/16/25 09:22 Fluticasone Propionate 0.05% Na Spr 16 Gm Btl (*Bkc) NASAL 1 spray Q12HR XENIA Administration Glucagon 1 mg 07/06/25 23:18 Glucagon For Inj 1 Mg Vial IM PRN PRN Hypoglycemia Protocol Glucose 15 gm 07/06/25 23:18 Glucose Oral Gel 15 Gm Of Glucse In 37.5 Gm Tube PO PRN PRN Hypoglycemia Protocol Dextrose 1,000 mls @ 100 mls/hr 07/06/25 23:18 Dextrose 5% 1,000 Ml IVPB PRN PRN Hypoglycemia Protocol Ampicillin Sodium/Sulbactam 100 mls @ 200 mls/hr 07/11/25 10:30 07/16/25 17:08 Sodium 3 gm/ Sodium Chloride IVPB 200 mls/hr Q6HR XENIA Administration Insulin Aspart 3 - 6 units 07/07/25 08:00 07/16/25 17:06 Insulin Aspart (*Bkc) 100 Units/Ml SUB-Q Not Given TIDWM XENIA Protocol Losartan Potassium 25 mg 07/15/25 09:00 07/16/25 09:22 Losartan Potassium 25 Mg Tablet PO 25 mg DAILY XENIA Administration Melatonin 5 mg 07/15/25 14:56 Melatonin 5 Mg Tablet PO HS PRN Sleep Metoprolol Tartrate 12.5 mg 07/10/25 21:00 07/16/25 09:22 Metoprolol Tartrate 12.5 Mg Tablet PO 12.5 mg Q12HR XENIA Administration Morphine Sulfate 4 mg 07/11/25 12:23 07/11/25 13:30 Morphine Sulfate (*Crx) 4 Mg/Ml Inj IV PUSH 4 mg ONCE PRN Administration Preprocedure Morphine Sulfate 2 mg 07/16/25 12:13 Morphine Sulfate (*Crx) 4 Mg/Ml Inj IV PUSH Q2H PRN Pain Rated 7-10 Ondansetron HCl 4 mg 07/06/25 22:57 07/09/25 13:54 Ondansetron Inj 4 Mg/2 Ml Vial IV PUSH 4 mg Q6H PRN Administration Nausea And Vomiting Perflutren Lipid Microsphere 0 ml 07/16/25 11:20 Perflutren Lipid Microspheres 1.5 Ml Vial Diluted To 10 Ml Total Volume IV PUSH 07/19/25 11:20 ONCE PRN adequate visualization Protocol Polyethylene Glycol 17 gm 07/12/25 09:00 07/16/25 09:21 Polyethylene Glycol 3350 17 Gm Powd.Pack PO Not Given QAM [facility] Sodium Chloride 10 ml 07/07/25 14:00 07/16/25 13:19 Central Line Flush IV PUSH 10 ml Q8HR XENIA Administration Sodium Chloride 20 ml 07/07/25 06:38 07/16/25 06:44 Central Line Flush IV PUSH 20 ml PRN PRN Administration after blood draws Sodium Chloride 10 ml 07/16/25 16:21 Central Line Flush IV PUSH PRN PRN with TPN bag changes Spironolactone 25 mg 07/14/25 09:50 07/16/25 09:22 Spironolactone 25 Mg Tablet PO 25 mg QAM XENIA Administration Valacyclovir HCl 1,000 mg 07/15/25 06:00 07/16/25 13:19 Valacyclovir Hcl 500 Mg Tablet PO 1,000 mg Q8HR XENIA Administration Radiology Results: ITS Impressions Upper Quadrant Ultrasound 07/09/25 14:30 IMPRESSION: 1. Normal right upper quadrant ultrasound with no intra or extrahepatic biliary ductal dilation. Venous Doppler Study 07/10/25 15:15 Impression: Negative for DVT. Chest/Abdomen/Pelvis CT 07/10/25 15:44 IMPRESSION: 1. New groundglass opacities in right lung upper lobe, consistent with pneumonia. 2. Small pleural effusions. 3. Distended gallbladder with gallstone suspicious for acute cholecystitis. 4. Worsened liver mass near the gallbladder, consistent with abscess. Cholecystostomy 07/11/25 14:51 IMPRESSION: 1. Successful ultrasound-guided cholecystostomy tube placement. 2. 20 mL bile was sent for aerobic, anaerobic, and fungal cultures. 3. The catheter will be managed by Dr. Sarabia. A catheter cholangiogram may be performed not less than 48 hours after tube placement if clinically indicated to assess cystic duct patency. If cholecystectomy is not eventually performed and the infectious episode has resolved, the tube may be removed over a guidewire, preferably not less than 3 weeks after placement to allow time for a mature catheter tract to form to prevent bile leakage and peritonitis. Chest X-Ray 07/16/25 16:52 Impression: PICC line placement as above Labs Labs: Laboratory Results - last 24 hr 07/15/25 07/16/25 07/16/25 19:53 06:52 07:31 Creatinine 0.72 Estim Creat Clear Calc 91 Estimated GFR > 60 POC Capillary Glucose 80 98 Iron 53 TIBC 245 L % Saturation 22 Ferritin 467.00 H 07/16/25 07/16/25 11:41 16:43 Creatinine Estim Creat Clear Calc Estimated GFR POC Capillary Glucose 118 H 81 Iron TIBC % Saturation Ferritin
[2025-07-17] VITALS (9 sets, daily range): BP systolic 108–137; BP diastolic 66–82; PULSE 60–93; RESP 14–18; TEMP 36.5–37.2; O2SAT 94–97
[2025-07-17 04:23] LABS: Hematocrit 24.1 % (42.0-52.0); Hemoglobin 7.8 g/dL (14.0-18.0); Immature Granulocyte Percent A 0.9 % (0-0.5); Lymphocytes Absolute Auto 0.42 K/mm3 (0.9-3.2); Mean Corpuscular HGB Conc 32.4 g/dl (32-36); Mean Corpuscular Hemoglobin 31.7 pg (26-34); Mean Corpuscular Volume 98.0 fl (80-100); Nucleated Red Blood Cells Absolute Auto 0.000 K/mm3 (0.0-0.012); Nucleated Red Blood Cells Perc 0.0 % (0.0-0.2); Platelet Count Result 179 k/mm3 (150-375); Red Blood Count 2.46 M/mm3 (4.6-6.20); White Blood Count 5.6 K/mm3 (4.5-10.0)
[2025-07-17 04:39] LABS: Alanine Aminotransferase 47 U/L (6-50); Albumin Level 3.1 g/dL (3.5-5.1); Alkaline Phosphatase 94 U/L (38-126); Anion Gap 6 mmol/L (4-12); Aspartate Amino Transferase 50 U/L (17-59); Bilirubin,Total 1.3 mg/dL (0.2-1.3); Blood Urea Nitrogen 13 mg/dL (9-20); Calcium 8.0 mg/dL (8.4-10.2); Carbon Dioxide 25 mmol/L (22-30); Chloride 105 mmol/L (98-107); Estimated CRCL calculation 84 ml/min; Estimated Glomerular Filt Rate > 60; Glucose 86 mg/dL (65-110); Magnesium 2.1 mg/dL (1.6-2.3); Potassium 3.6 mmol/L (3.4-5.0); Sodium 136 mmol/L (137-145); Total Protein 5.8 g/dL (6.3-8.2)
[2025-07-17] MEDS: AMPICILLIN SODIUM/SULBACTAM 3 GM in SODIUM CHLORIDE 0.9% IV 100 ML 200 ML IVPB ×4 (04:49→23:48)
[2025-07-17] MEDS: CENTRAL LINE FLUSH 10 ML IV PUSH ×3 (04:59→23:48)
--- NOTE | 2025-07-17 07:24 | P.PNIM_ITS ---
Progress Note: A&P Assessment and Plan (1) Septic shock: Code(s): A41.9 - Sepsis, unspecified organism; R65.21 - Severe sepsis with septic shock Status: Acute Assessment and Plan: The patient was examined at the bedside. Patient reports a history of prostate cancer for which he underwent radiation for 9 weeks. Patient was currently admitted in the setting of acute cholecystitis with liver abscess for which he underwent cholecystostomy tube placement, CHF, echocardiogram performed on 0 07/09 shows ejection fraction 25%. It has significantly improved to 60-65% on the echo, which was performed on 07/16. The patient's hemoglobin level has dropped from 9.9 to 7.8. His platelet count has been significantly improved to 179. The patient had a platelet transfusion of 2 units previously. From a surgical standpoint, the patient can be discharged according to the ID recommendation for antibiotics. The patient will be discharged with ertapenem and daptomycin for at least 2 weeks. Patient is currently on Unasyn. Pansensitive E coli and bacteriodes bacteremia from gallbladder source CT chest showed pneumonia RUL with acute cholecystitis Lower extremity Dopplers are negative for DVT Continue Abx, ID and Gen surgery follorwing (2) Right lower lobe pneumonia: Qualifiers: Pneumonia type: due to unspecified organism Qualified Code(s): J18.9 - Pneumonia, unspecified organism Code(s): J18.9 - Pneumonia, unspecified organism Status: Acute Assessment and Plan: Now on room air -respiratory panel will has been ordered and negative Add incentive spirometry Now on room air Continue abx ,ID following (3) Abnormal computed tomography of gallbladder: Code(s): R93.2 - Abnormal findings on diagnostic imaging of liver and biliary tract Status: Acute Assessment and Plan: See above (4) Congestive heart failure: Code(s): I50.9 - Heart failure, unspecified Status: Acute Assessment and Plan: Chest x-ray shows diffuse bilateral infiltrates. Patient had elevated BNP on presentation Echocardiogram shows EF of 25-30% COntineu losartan 25mg, Spironolactone and Metoprolol Limited EHCO today per cards Cardiology recommends outpatient cardiac cath with primary cardiology 0 07/17: Echocardiogram performed on 07/16 shows ejection fraction 60-65% (5) Thrombocytopenia: Code(s): D69.6 - Thrombocytopenia, unspecified Status: Acute Assessment and Plan: Multifactorial thrombocytopenia likely secondary to sepsis. I will transfuse 2 units of platelets in anticipation of invasive procedure. Lovenox some and patient is on SCDs 07/11 patient was given 2 units platelets for cholecystostomy placement Plts 141 today 0 07/17: Platelet 179 (6) Electrolyte abnormality: Code(s): E87.8 - Other disorders of electrolyte and fluid balance, not elsewhere classified Status: Acute Assessment and Plan: Potassium and calcium replacement ordered Plan Acute cholecystitis with liver abscess on Cholecystostomy drainage Continue Unasyn per ID CT AP reviewed Blood culture positive for pansensitive E coli ad Bacteriodes, repeat blood culture still no growth Cholecystostomy drainage culture positive for pansensitive E coli and Enterococcus faecium Patient is currently on Unasyn Patient can be discharged with ertapenem and daptomycin as per ID recommendation ID and Gen surgery following DVT prophylaxis: On Sq Lovenox, thrombocytopenia resolved Stress ulcer prophylaxis: Ppi Nutrition: low fat diet . Advance as per General surgery Code Status: Full code Subjective Date/time seen: 07/17/25 07:24 Interval history: The patient was examined at the bedside. Patient reports a history of prostate cancer for which he underwent radiation for 9 weeks. Patient was currently admitted in the setting of acute cholecystitis with liver abscess for which he underwent cholecystostomy tube placement, CHF, echocardiogram performed on 0 07/09 shows ejection fraction 25%. It has significantly improved to 60-65% on the echo, which was performed on 07/16. The patient's hemoglobin level has dropped from 9.9 to 7.8. His platelet count has been significantly improved to 179. The patient had a platelet transfusion of 2 units previously. From a surgical standpoint, the patient can be discharged according to the ID recommendation for antibiotics. The patient will be discharged with ertapenem a nd daptomycin for at least 2 weeks. Patient is currently on Unasyn. Review of Systems Review of Systems: 12 systems were reviewed with pertinent positives and negatives per HPI. Except as documented in the HPI, all other systems were reviewed and are negative. All systems reviewed & are unremarkable except as noted in HPI and below Exam Narrative: General: Pleasant gentleman in no acute distress HEENT:? Pupils equal reactive, sclerae is clear, moist oral mucosa Neck:? Supple Respiratory:? Coarse breath sounds bilaterally, decreased at bases, no wheezing, no significant crackles Cardiac:? S1-S2 normal, regular rate and rhythm Abdomen:? Soft, nontender, nondistended with normoactive bowel sounds, cholecystostomy drain in the right upper quadrant with dark liquid output Extremities:? No significant edema Neuro:? Patient awake, alert, oriented x3, nonfocal, answers to questions appropriately and follows simple commands in all extremities Skin:? Warm and dry, no skin lesions noted Psych:? Normal mentation and affect Const: Other: Mildly ill-appearing, obese, appears stated age HENMT: Other: Mucous membranes are dry, upper and lower dentures in place Eyes: Other: Mild scleral icterus, no conjunctival pallor, pupils are equal and reactive Neck: Other: No JVD, no lymphadenopathy, right IJ present Resp: Other: Clear to auscultation bilaterally, no increased work of breathing Cardio: Other: Sinus tachycardia, 2+ bilateral radial pedal pulses, no JVD, no murmur GI: Other: Distended, nontender to palpation, hypoactive bowel sounds, no organomegaly : Other: Ac catheter in place with cloudy dark kirsty urine Skin: Other: Warm to touch, mild jaundice, no pallor Neuro: Other: Alert oriented x4, speech is clear, no facial asymmetry, no localizing neurologic deficits noted during the course of conversation Extrem: Other: No clubbing, cyanosis or edema, moves all extremities equally Psych: Other: Appropriate mood and affect, pleasant and cooperative, judgment insight intact Objective Data Vital Signs Vital Signs: Vital Signs - 24 hr 07/16/25 08:00 07/16/25 08:00 07/16/25 08:52 Temperature 98.8 F Pulse Rate 77 80 Respiratory Rate 18 Blood Pressure 129/68 Pulse Oximetry 94 95 Oxygen Delivery Room Air 07/16/25 09:22 07/16/25 10:00 07/16/25 12:00 Temperature Pulse Rate 97 77 79 Respiratory Rate Blood Pressure Pulse Oximetry Oxygen Delivery 07/16/25 12:00 07/16/25 14:00 07/16/25 16:00 Temperature 98.6 F 98.7 F Pulse Rate 68 70 77 Respiratory Rate 16 18 Blood Pressure 122/78 139/79 Pulse Oximetry 98 95 Oxygen Delivery 07/16/25 16:39 07/16/25 20:27 07/16/25 20:39 Temperature 98.7 F Pulse Rate 60 74 74 Respiratory Rate 14 Blood Pressure 137/77 Pulse Oximetry 93 Oxygen Delivery 07/16/25 21:22 07/17/25 00:00 07/17/25 00:39 Temperature 98.6 F Pulse Rate 74 66 66 Respiratory Rate 14 Blood Pressure 130/74 Pulse Oximetry 94 Oxygen Delivery 07/17/25 04:00 Temperature Pulse Rate 70 Respiratory Rate Blood Pressure Pulse Oximetry Oxygen Delivery Intake/Output Intake/Output: Intake & Output 07/14/25 07/15/25 07/16/25 07/17/25 23:59 23:59 23:59 23:59 Intake Total 2165 1100 1880 100 Output Total 2090 2845 3020 900 Balance 75 -1745 -1140 -800 Meds/Results Medications: Active Medications Generic Name Dose Route Start Last Admin Trade Name Freq PRN Reason Stop Dose Admin Acetaminophen 650 mg 07/06/25 22:57 07/12/25 20:18 Acetaminophen 325 Mg Tablet PO 650 mg Q4H PRN Administration Mild Pain (1-3) or Fever Al Hydrox/Mg Hydrox/Simethicone 30 ml 07/06/25 22:57 Mag Hydrox/Al Hydrox/Simeth 30 Ml Udc PO QID PRN Dyspepsia Artificial Tears 1 drop 07/11/25 09:15 07/16/25 09:23 Artificial Tears Ophth Soln 15 Ml Bottle EACH EYE 1 drop QID PRN Administration Dry Eye(s) Bisacodyl 5 mg 07/06/25 22:57 Bisacodyl 5 Mg Tablet Ec PO DAILY PRN Constipation Bisacodyl 10 mg 07/12/25 07:55 Bisacodyl 10 Mg Suppository RECTAL QAM PRN Constipation Dextrose 12.5 gm 07/06/25 23:18 Dextrose 50% 25 Gm/50 Ml Syringe IV PUSH PRN PRN Hypoglycemia Protocol Diphenhydramine HCl 25 mg 07/15/25 03:40 07/15/25 23:23 Diphenhydramine Hcl Cap 25 Mg Capsule PO 25 mg Q6H PRN Administration Itching Empagliflozin 10 mg 07/16/25 11:20 07/16/25 13:19 Empagliflozin 10 Mg Tablet PO 10 mg DAILY XENIA Administration Enoxaparin Sodium 40 mg 07/07/25 09:00 07/08/25 07:47 Enoxaparin 40 Mg/0.4 Ml Syringe SUB-Q Not Given DAILY [facility] Famotidine 20 mg 07/14/25 21:00 07/16/25 21:22 Famotidine 20 Mg Tablet PO 20 mg Q12HR XENIA Administration Fluticasone Propionate 1 spray 07/07/25 09:00 07/16/25 21:22 Fluticasone Propionate 0.05% Na Spr 16 Gm Btl (*Bkc) NASAL 1 spray Q12HR XENIA Administration Glucagon 1 mg 07/06/25 23:18 Glucagon For Inj 1 Mg Vial IM PRN PRN Hypoglycemia Protocol Glucose 15 gm 07/06/25 23:18 Glucose Oral Gel 15 Gm Of Glucse In 37.5 Gm Tube PO PRN PRN Hypoglycemia Protocol Dextrose 1,000 mls @ 100 mls/hr 07/06/25 23:18 Dextrose 5% 1,000 Ml IVPB PRN PRN Hypoglycemia Protocol Ampicillin Sodium/Sulbactam 100 mls @ 200 mls/hr 07/11/25 10:30 07/17/25 04:49 Sodium 3 gm/ Sodium Chloride IVPB 200 mls/hr Q6HR XENIA Administration Insulin Aspart 3 - 6 units 07/07/25 08:00 07/16/25 17:06 Insulin Aspart (*Bkc) 100 Units/Ml SUB-Q Not Given TIDWM [facility] Protocol Losartan Potassium 25 mg 07/15/25 09:00 07/16/25 09:22 Losartan Potassium 25 Mg Tablet PO 25 mg DAILY [facility] Administration Melatonin 5 mg 07/15/25 14:56 Melatonin 5 Mg Tablet PO HS PRN Sleep Metoprolol Tartrate 12.5 mg 07/10/25 21:00 07/16/25 21:22 Metoprolol Tartrate 12.5 Mg Tablet PO 12.5 mg Q12HR XENIA Administration Morphine Sulfate 4 mg 07/11/25 12:23 07/11/25 13:30 Morphine Sulfate (*Crx) 4 Mg/Ml Inj IV PUSH 4 mg ONCE PRN Administration Preprocedure Morphine Sulfate 2 mg 07/16/25 12:13 Morphine Sulfate (*Crx) 4 Mg/Ml Inj IV PUSH Q2H PRN Pain Rated 7-10 Ondansetron HCl 4 mg 07/06/25 22:57 07/09/25 13:54 Ondansetron Inj 4 Mg/2 Ml Vial IV PUSH 4 mg Q6H PRN Administration Nausea And Vomiting Perflutren Lipid Microsphere 0 ml 07/16/25 11:20 Perflutren Lipid Microspheres 1.5 Ml Vial Diluted To 10 Ml Total Volume IV PUSH 07/19/25 11:20 ONCE PRN adequate visualization Protocol Polyethylene Glycol 17 gm 07/12/25 09:00 07/16/25 09:21 Polyethylene Glycol 3350 17 Gm Powd.Pack PO Not Given QAM XENIA Sodium Chloride 10 ml 07/07/25 14:00 07/17/25 04:59 Central Line Flush IV PUSH 10 ml Q8HR XENIA Administration Sodium Chloride 20 ml 07/07/25 06:38 07/16/25 06:44 Central Line Flush IV PUSH 20 ml PRN PRN Administration after blood draws Sodium Chloride 10 ml 07/16/25 16:21 Central Line Flush IV PUSH PRN PRN with TPN bag changes Spironolactone 25 mg 07/14/25 09:50 07/16/25 09:22 Spironolactone 25 Mg Tablet PO 25 mg QAM XENIA Administration Valacyclovir HCl 1,000 mg 07/15/25 06:00 07/17/25 04:48 Valacyclovir Hcl 500 Mg Tablet PO 1,000 mg Q8HR XENIA Administration Radiology Results: ITS Impressions Upper Quadrant Ultrasound 07/09/25 14:30 IMPRESSION: 1. Normal right upper quadrant ultrasound with no intra or extrahepatic biliary ductal dilation. Venous Doppler Study 07/10/25 15:15 Impression: Negative for DVT. Chest/Abdomen/Pelvis CT 07/10/25 15:44 IMPRESSION: 1. New groundglass opacities in right lung upper lobe, consistent with pneumonia. 2. Small pleural effusions. 3. Distended gallbladder with gallstone suspicious for acute cholecystitis. 4. Worsened liver mass near the gallbladder, consistent with abscess. Cholecystostomy 07/11/25 14:51 IMPRESSION: 1. Successful ultrasound-guided cholecystostomy tube placement. 2. 20 mL bile was sent for aerobic, anaerobic, and fungal cultures. 3. The catheter will be managed by Dr. Sarabia. A catheter cholangiogram may be performed not less than 48 hours after tube placement if clinically indicated to assess cystic duct patency. If cholecystectomy is not eventually performed and the infectious episode has resolved, the tube may be removed over a guidewire, preferably not less than 3 weeks after placement to allow time for a mature catheter tract to form to prevent bile leakage and peritonitis. Chest X-Ray 07/16/25 16:52 Impression: PICC line placement as above Labs Labs: Laboratory Results - last 24 hr 07/16/25 07/16/25 07/16/25 06:52 07:31 11:41 WBC RBC Hgb Hct MCV MCH MCHC RDW Plt Count MPV Immature Gran % (Auto) Neut % (Auto) Lymph % (Auto) [place] % (Auto) Eos % (Auto) Baso % (Auto) Lymph # (Auto) [place] # (Auto) Eos # (Auto) Baso # (Auto) Abs Immat Gran (auto) Absolute Neuts (auto) Absolute Nucleated RBC Nucleated RBC % Sodium Potassium Chloride Carbon Dioxide Anion Gap BUN Creatinine 0.72 Estim Creat Clear Calc 91 Estimated GFR > 60 Glucose POC Capillary Glucose 98 118 H Calcium Magnesium Iron 53 TIBC 245 L % Saturation 22 Ferritin 467.00 H Total Bilirubin AST ALT Alkaline Phosphatase Total Protein Albumin 07/16/25 07/16/25 07/17/25 16:43 20:23 04:06 WBC 5.6 RBC 2.46 L Hgb 7.8 L Hct 24.1 L MCV 98.0 MCH 31.7 MCHC 32.4 RDW 13.4 Plt Count 179 MPV 10.2 Immature Gran % (Auto) 0.9 H Neut % (Auto) 83.5 H Lymph % (Auto) 7.6 L [place] % (Auto) 6.7 Eos % (Auto) 0.9 Baso % (Auto) 0.4 Lymph # (Auto) 0.42 L [place] # (Auto) 0.4 Eos # (Auto) 0.1 Baso # (Auto) 0.0 Abs Immat Gran (auto) 0.05 H Absolute Neuts (auto) 4.7 Absolute Nucleated RBC 0.000 Nucleated RBC % 0.0 Sodium 136 L Potassium 3.6 Chloride 105 Carbon Dioxide 25 Anion Gap 6 BUN 13 Creatinine 0.78 Estim Creat Clear Calc 84 Estimated GFR > 60 Glucose 86 POC Capillary Glucose 81 89 Calcium 8.0 L Magnesium 2.1 Iron TIBC % Saturation Ferritin Total Bilirubin 1.3 AST 50 ALT 47 Alkaline Phosphatase 94 Total Protein 5.8 L Albumin 3.1 L Quality VTE Prophylaxis VTE prophylaxis: mechanical ordered Hospitalist MIPS Advance Care Plan I have confirmed that the patient's Advanced Care Plan is present, code status is documented, or surrogate decision maker is listed in patient medical record.: Yes
[2025-07-17] MEDS: FLUTICASONE PROPIONATE 0.05% NA SPR 16 GM BTL (*BKC) 1 SPRAY NASAL ×2 (09:09→23:48)
[2025-07-17] MEDS: ARTIFICIAL TEARS OPHTH SOLN 15 ML BOTTLE 1 DROP EACH EYE (09:10)
[2025-07-17] MEDS: FAMOTIDINE 20 MG TABLET PO ×2 (09:10→20:08)
[2025-07-17] MEDS: ENOXAPARIN 40 MG/0.4 ML SYRINGE SUB-Q (09:10)
[2025-07-17] MEDS: METOPROLOL TARTRATE 12.5 MG TABLET PO ×2 (09:10→20:09)
[2025-07-17] MEDS: EMPAGLIFLOZIN 10 MG TABLET PO (09:11)
[2025-07-17] MEDS: LOSARTAN POTASSIUM 25 MG TABLET PO (09:11)
[2025-07-17] MEDS: SPIRONOLACTONE 25 MG TABLET PO (09:11)
--- NOTE | 2025-07-17 11:03 | P.PNGS_ITS ---
Progress Note: A&P Assessment and Plan (1) Acute calculous cholecystitis: Code(s): K80.00 - Calculus of gallbladder with acute cholecystitis without obstruction Status: Acute Assessment and Plan: * Resolved with cholecystostomy tube. Tolerating a diet and cholecystostomy tube is functioning well. * Okay to discharge with the cholecystostomy tube from a surgical standpoint when medically stable. Will plan an outpatient cholangiogram through the cholecystostomy tube and f/u with Dr. Sarabia in the next few weeks. ID is recommending at least 2 weeks of IV antibiotics. PICC line placed and CC is working on d/c planning for antibiotics. (2) Liver abscess: Code(s): K75.0 - Abscess of liver Status: Acute Assessment and Plan: * ID recommending at least 2 weeks IV antibiotics with outpatient f/u. (3) Thrombocytopenia: Code(s): D69.6 - Thrombocytopenia, unspecified Status: Acute Assessment and Plan: * Resolved Plan Discussed patient's case and plan of care with Dr. Sarabia. Subjective Subjective Date/Time Seen: 07/17/25 11:03 Patient reports: tolerating a regular diet Interval history: No acute changes overnight. No complaints at this time. Denies any abdominal pain. Tolerating a diet. No issues with the cholecystostomy tube. 200 cc output in the last 24 hours. Exam Const: General: comfortable and no acute distress GI: Inspection: non-distended GI Palp: Yes Soft to palpation, No Tenderness to palpation present (GI), No Guarding due to palpation present (GI) and No Rebound tenderness present Auscultation: normal bowel sounds Other: Cholecystostomy tube with minimal bilious output in bag, dressing dry and intact Objective Data Vital Signs Vital Signs: Vital Signs - 24 hr 07/16/25 12:00 07/16/25 12:00 07/16/25 14:00 Temperature 98.6 F Pulse Rate 79 68 70 Respiratory Rate 16 Blood Pressure 122/78 Pulse Oximetry 98 07/16/25 16:00 07/16/25 16:39 07/16/25 20:27 Temperature 98.7 F 98.7 F Pulse Rate 77 60 74 Respiratory Rate 18 14 Blood Pressure 139/79 137/77 Pulse Oximetry 95 93 07/16/25 20:39 07/16/25 21:22 07/17/25 00:00 Temperature 98.6 F Pulse Rate 74 74 66 Respiratory Rate 14 Blood Pressure 130/74 Pulse Oximetry 94 07/17/25 00:39 07/17/25 04:00 07/17/25 08:08 Temperature 98.9 F Pulse Rate 66 70 81 Respiratory Rate 18 Blood Pressure 119/82 Pulse Oximetry 94 07/17/25 09:10 Temperature Pulse Rate 93 Respiratory Rate Blood Pressure Pulse Oximetry Intake/Output Intake/Output: Intake & Output 07/14/25 07/15/25 07/16/25 07/17/25 23:59 23:59 23:59 23:59 Intake Total 2165 1100 1880 340 Output Total 2090 2845 3020 900 Balance 75 -1745 -1140 -560 Meds/Results Medications: Active Medications Generic Name Dose Route Start Last Admin Trade Name Freq PRN Reason Stop Dose Admin Acetaminophen 650 mg 07/06/25 22:57 07/12/25 20:18 Acetaminophen 325 Mg Tablet PO 650 mg Q4H PRN Administration Mild Pain (1-3) or Fever Al Hydrox/Mg Hydrox/Simethicone 30 ml 07/06/25 22:57 Mag Hydrox/Al Hydrox/Simeth 30 Ml Udc PO QID PRN Dyspepsia Artificial Tears 1 drop 07/11/25 09:15 07/17/25 09:10 Artificial Tears Ophth Soln 15 Ml Bottle EACH EYE 1 drop QID PRN Administration Dry Eye(s) Bisacodyl 5 mg 07/06/25 22:57 Bisacodyl 5 Mg Tablet Ec PO DAILY PRN Constipation Bisacodyl 10 mg 07/12/25 07:55 Bisacodyl 10 Mg Suppository RECTAL QAM PRN Constipation Dextrose 12.5 gm 07/06/25 23:18 Dextrose 50% 25 Gm/50 Ml Syringe IV PUSH PRN PRN Hypoglycemia Protocol Diphenhydramine HCl 25 mg 07/15/25 03:40 07/15/25 23:23 Diphenhydramine Hcl Cap 25 Mg Capsule PO 25 mg Q6H PRN Administration Itching Empagliflozin 10 mg 07/16/25 11:20 07/17/25 09:11 Empagliflozin 10 Mg Tablet PO 10 mg DAILY XENIA Administration Enoxaparin Sodium 40 mg 07/07/25 09:00 07/17/25 09:10 Enoxaparin 40 Mg/0.4 Ml Syringe SUB-Q 40 mg DAILY XENIA Administration Famotidine 20 mg 07/14/25 21:00 07/17/25 09:10 Famotidine 20 Mg Tablet PO 20 mg Q12HR XENIA Administration Fluticasone Propionate 1 spray 07/07/25 09:00 07/17/25 09:09 Fluticasone Propionate 0.05% Na Spr 16 Gm Btl (*Bkc) NASAL 1 spray Q12HR XENIA Administration Glucagon 1 mg 07/06/25 23:18 Glucagon For Inj 1 Mg Vial IM PRN PRN Hypoglycemia Protocol Glucose 15 gm 07/06/25 23:18 Glucose Oral Gel 15 Gm Of Glucse In 37.5 Gm Tube PO PRN PRN Hypoglycemia Protocol Dextrose 1,000 mls @ 100 mls/hr 07/06/25 23:18 Dextrose 5% 1,000 Ml IVPB PRN PRN Hypoglycemia Protocol Ampicillin Sodium/Sulbactam 100 mls @ 200 mls/hr 07/11/25 10:30 07/17/25 04:49 Sodium 3 gm/ Sodium Chloride IVPB 200 mls/hr Q6HR XENIA Administration Insulin Aspart 3 - 6 units 07/07/25 08:00 07/17/25 08:12 Insulin Aspart (*Bkc) 100 Units/Ml SUB-Q Not Given TIDWM [facility] Protocol Losartan Potassium 25 mg 07/15/25 09:00 07/17/25 09:11 Losartan Potassium 25 Mg Tablet PO 25 mg DAILY XENIA Administration Melatonin 5 mg 07/15/25 14:56 Melatonin 5 Mg Tablet PO HS PRN Sleep Metoprolol Tartrate 12.5 mg 07/10/25 21:00 07/17/25 09:10 Metoprolol Tartrate 12.5 Mg Tablet PO 12.5 mg Q12HR XENIA Administration Morphine Sulfate 4 mg 07/11/25 12:23 07/11/25 13:30 Morphine Sulfate (*Crx) 4 Mg/Ml Inj IV PUSH 4 mg ONCE PRN Administration Preprocedure Morphine Sulfate 2 mg 07/16/25 12:13 Morphine Sulfate (*Crx) 4 Mg/Ml Inj IV PUSH Q2H PRN Pain Rated 7-10 Ondansetron HCl 4 mg 07/06/25 22:57 07/09/25 13:54 Ondansetron Inj 4 Mg/2 Ml Vial IV PUSH 4 mg Q6H PRN Administration Nausea And Vomiting Perflutren Lipid Microsphere 0 ml 07/16/25 11:20 Perflutren Lipid Microspheres 1.5 Ml Vial Diluted To 10 Ml Total Volume IV PUSH 07/19/25 11:20 ONCE PRN adequate visualization Protocol Polyethylene Glycol 17 gm 07/12/25 09:00 07/16/25 09:21 Polyethylene Glycol 3350 17 Gm Powd.Pack PO Not Given QAM XENIA Sodium Chloride 10 ml 07/07/25 14:00 07/17/25 04:59 Central Line Flush IV PUSH 10 ml Q8HR XENIA Administration Sodium Chloride 20 ml 07/07/25 06:38 07/16/25 06:44 Central Line Flush IV PUSH 20 ml PRN PRN Administration after blood draws Sodium Chloride 10 ml 07/16/25 16:21 Central Line Flush IV PUSH PRN PRN with TPN bag changes Spironolactone 25 mg 07/14/25 09:50 07/17/25 09:11 Spironolactone 25 Mg Tablet PO 25 mg QAM XENIA Administration Valacyclovir HCl 1,000 mg 07/15/25 06:00 07/17/25 04:48 Valacyclovir Hcl 500 Mg Tablet PO 1,000 mg Q8HR XENIA Administration Radiology Results: ITS Impressions Upper Quadrant Ultrasound 07/09/25 14:30 IMPRESSION: 1. Normal right upper quadrant ultrasound with no intra or extrahepatic biliary ductal dilation. Venous Doppler Study 07/10/25 15:15 Impression: Negative for DVT. Chest/Abdomen/Pelvis CT 07/10/25 15:44 IMPRESSION: 1. New groundglass opacities in right lung upper lobe, consistent with pneumonia. 2. Small pleural effusions. 3. Distended gallbladder with gallstone suspicious for acute cholecystitis. 4. Worsened liver mass near the gallbladder, consistent with abscess. Cholecystostomy 07/11/25 14:51 IMPRESSION: 1. Successful ultrasound-guided cholecystostomy tube placement. 2. 20 mL bile was sent for aerobic, anaerobic, and fungal cultures. 3. The catheter will be managed by Dr. Sarabia. A catheter cholangiogram may be performed not less than 48 hours after tube placement if clinically indicated to assess cystic duct patency. If cholecystectomy is not eventually performed and the infectious episode has resolved, the tube may be removed over a guidewire, preferably not less than 3 weeks after placement to allow time for a mature catheter tract to form to prevent bile leakage and peritonitis. Chest X-Ray 07/16/25 16:52 Impression: PICC line placement as above Labs Labs: Laboratory Results - last 24 hr 07/16/25 07/16/25 07/16/25 11:41 16:43 20:23 WBC RBC Hgb Hct MCV MCH MCHC RDW Plt Count MPV Immature Gran % (Auto) Neut % (Auto) Lymph % (Auto) [place] % (Auto) Eos % (Auto) Baso % (Auto) Lymph # (Auto) [place] # (Auto) Eos # (Auto) Baso # (Auto) Abs Immat Gran (auto) Absolute Neuts (auto) Absolute Nucleated RBC Nucleated RBC % Sodium Potassium Chloride Carbon Dioxide Anion Gap BUN Creatinine Estim Creat Clear Calc Estimated GFR Glucose POC Capillary Glucose 118 H 81 89 Calcium Magnesium Total Bilirubin AST ALT Alkaline Phosphatase Total Protein Albumin 07/17/25 07/17/25 04:06 07:23 WBC 5.6 RBC 2.46 L Hgb 7.8 L Hct 24.1 L MCV 98.0 MCH 31.7 MCHC 32.4 RDW 13.4 Plt Count 179 MPV 10.2 Immature Gran % (Auto) 0.9 H Neut % (Auto) 83.5 H Lymph % (Auto) 7.6 L [place] % (Auto) 6.7 Eos % (Auto) 0.9 Baso % (Auto) 0.4 Lymph # (Auto) 0.42 L [place] # (Auto) 0.4 Eos # (Auto) 0.1 Baso # (Auto) 0.0 Abs Immat Gran (auto) 0.05 H Absolute Neuts (auto) 4.7 Absolute Nucleated RBC 0.000 Nucleated RBC % 0.0 Sodium 136 L Potassium 3.6 Chloride 105 Carbon Dioxide 25 Anion Gap 6 BUN 13 Creatinine 0.78 Estim Creat Clear Calc 84 Estimated GFR > 60 Glucose 86 POC Capillary Glucose 89 Calcium 8.0 L Magnesium 2.1 Total Bilirubin 1.3 AST 50 ALT 47 Alkaline Phosphatase 94 Total Protein 5.8 L Albumin 3.1 L
--- NOTE | 2025-07-17 11:42 | WPDINFPN2 ---
Progress Note: A&P Assessment and Plan (1) Gram negative septicemia: Code(s): A41.50 - Gram-negative sepsis, unspecified Status: Acute (2) Septic shock: Code(s): A41.9 - Sepsis, unspecified organism; R65.21 - Severe sepsis with septic shock Status: Acute (3) Abdominal pain in male: Code(s): R10.9 - Unspecified abdominal pain Status: Acute (4) Diarrhea: Code(s): R19.7 - Diarrhea, unspecified Status: Acute (5) Elevated LFTs: Code(s): R79.89 - Other specified abnormal findings of blood chemistry Status: Acute (6) Acute hypoxic respiratory failure: Code(s): J96.01 - Acute respiratory failure with hypoxia Status: Acute (7) Thrombocytopenia: Code(s): D69.6 - Thrombocytopenia, unspecified Status: Acute (8) Ejection fraction < 50%: Status: Acute Plan # Pansensitive E coli and Bacteroides bacteremia associated with complicated cholecystitis with associated liver abscess. -- immediate follow-up blood cultures 07/08 again with delayed growth of Gram-negative rods. 07/10 blood cultures remain negative. -- now status post IR cholecystostomy tube placement. Procedure cultures townsend-sensitive E.coli and townsend-sensitive E. faecium # Severe sepsis with septic shock. -- now off of pressors. # Hypoxemia. -- may be a manifestation of sepsis, heart failure with pulmonary edema, or pneumonia. -- improved. # Diminished ejection fraction. # Mild transaminitis. -- improving. Bilirubin normalized. # Thrombocytopenia. -- suspect sepsis versus medication induced. -- platelet account appears to be normalizing Plan: Unasyn for now Not clear if enterococcus is contributing. for outpt iv abx, plan ertapenem 1g IV Q24hrs and Daptomycin 700mg IV Q24hrs through 07/24/25. May extend antimicrobial therapy based upon patient's clinical status. will consider oral stepdown therapy thereafter. OK for telemed visit for follow up with Dr. Brodie Ordoñez [facility] in place Antimicrobial plan of care discussed with patient at bedside. All questions answered. Patient was seen via video telehealth consultation with the assistance of staff. Chart, data, and patient independently reviewed. Patient was located at [facility] while I was located in my [place] office. Received verbal consent from patient. Subjective Date/time seen: 07/17/25 11:42 Interval history: Patient afebrile. He reports no abdominal pain. RUE PICC placed yesterday. Review of Systems Review of Systems: All systems reviewed & are unremarkable except as noted in HPI and below Exam Narrative: up in chair. good spirits. family with him Breathing comfortably . Abdomen with some distention. Cholecystostomy tube drainage with chocolate colored liquid output. No evidence of rash. No pruritus. RUE PICC (07/16/25) intact Objective Data Vital Signs Vital Signs: Vital Signs - 24 hr 07/16/25 12:00 07/16/25 12:00 07/16/25 14:00 Temperature 98.6 F Pulse Rate 79 68 70 Respiratory Rate 16 Blood Pressure 122/78 Pulse Oximetry 98 07/16/25 16:00 07/16/25 16:39 07/16/25 20:27 Temperature 98.7 F 98.7 F Pulse Rate 77 60 74 Respiratory Rate 18 14 Blood Pressure 139/79 137/77 Pulse Oximetry 95 93 07/16/25 20:39 07/16/25 21:22 07/17/25 00:00 Temperature 98.6 F Pulse Rate 74 74 66 Respiratory Rate 14 Blood Pressure 130/74 Pulse Oximetry 94 07/17/25 00:39 07/17/25 04:00 07/17/25 08:00 Temperature Pulse Rate 66 70 84 Respiratory Rate Blood Pressure Pulse Oximetry 07/17/25 08:08 07/17/25 09:10 Temperature 98.9 F Pulse Rate 81 93 Respiratory Rate 18 Blood Pressure 119/82 Pulse Oximetry 94 Intake/Output Intake/Output: Intake & Output 07/14/25 07/15/25 07/16/25 07/17/25 23:59 23:59 23:59 23:59 Intake Total 2165 1100 1880 340 Output Total 2090 2845 3020 1000 Balance 48 -3825 -1140 -660 Meds/Results Medications: Active Medications Generic Name Dose Route Start Last Admin Trade Name Freq PRN Reason Stop Dose Admin Acetaminophen 650 mg 07/06/25 22:57 07/12/25 20:18 Acetaminophen 325 Mg Tablet PO 650 mg Q4H PRN Administration Mild Pain (1-3) or Fever Al Hydrox/Mg Hydrox/Simethicone 30 ml 07/06/25 22:57 Mag Hydrox/Al Hydrox/Simeth 30 Ml Udc PO QID PRN Dyspepsia Artificial Tears 1 drop 07/11/25 09:15 07/17/25 09:10 Artificial Tears Ophth Soln 15 Ml Bottle EACH EYE 1 drop QID PRN Administration Dry Eye(s) Bisacodyl 5 mg 07/06/25 22:57 Bisacodyl 5 Mg Tablet Ec PO DAILY PRN Constipation Bisacodyl 10 mg 07/12/25 07:55 Bisacodyl 10 Mg Suppository RECTAL QAM PRN Constipation Dextrose 12.5 gm 07/06/25 23:18 Dextrose 50% 25 Gm/50 Ml Syringe IV PUSH PRN PRN Hypoglycemia Protocol Diphenhydramine HCl 25 mg 07/15/25 03:40 07/15/25 23:23 Diphenhydramine Hcl Cap 25 Mg Capsule PO 25 mg Q6H PRN Administration Itching Empagliflozin 10 mg 07/16/25 11:20 07/17/25 09:11 Empagliflozin 10 Mg Tablet PO 10 mg DAILY XENIA Administration Enoxaparin Sodium 40 mg 07/07/25 09:00 07/17/25 09:10 Enoxaparin 40 Mg/0.4 Ml Syringe SUB-Q 40 mg DAILY XENIA Administration Famotidine 20 mg 07/14/25 21:00 07/17/25 09:10 Famotidine 20 Mg Tablet PO 20 mg Q12HR XENIA Administration Fluticasone Propionate 1 spray 07/07/25 09:00 07/17/25 09:09 Fluticasone Propionate 0.05% Na Spr 16 Gm Btl (*Bkc) NASAL 1 spray Q12HR XENIA Administration Glucagon 1 mg 07/06/25 23:18 Glucagon For Inj 1 Mg Vial IM PRN PRN Hypoglycemia Protocol Glucose 15 gm 07/06/25 23:18 Glucose Oral Gel 15 Gm Of Glucse In 37.5 Gm Tube PO PRN PRN Hypoglycemia Protocol Dextrose 1,000 mls @ 100 mls/hr 07/06/25 23:18 Dextrose 5% 1,000 Ml IVPB PRN PRN Hypoglycemia Protocol Ampicillin Sodium/Sulbactam 100 mls @ 200 mls/hr 07/11/25 10:30 07/17/25 04:49 Sodium 3 gm/ Sodium Chloride IVPB 200 mls/hr Q6HR XENIA Administration Insulin Aspart 3 - 6 units 07/07/25 08:00 07/17/25 08:12 Insulin Aspart (*Bkc) 100 Units/Ml SUB-Q Not Given [facility] Protocol Losartan Potassium 25 mg 07/15/25 09:00 07/17/25 09:11 Losartan Potassium 25 Mg Tablet PO 25 mg DAILY XENIA Administration Melatonin 5 mg 07/15/25 14:56 Melatonin 5 Mg Tablet PO HS PRN Sleep Metoprolol Tartrate 12.5 mg 07/10/25 21:00 07/17/25 09:10 Metoprolol Tartrate 12.5 Mg Tablet PO 12.5 mg Q12HR XENIA Administration Morphine Sulfate 4 mg 07/11/25 12:23 07/11/25 13:30 Morphine Sulfate (*Crx) 4 Mg/Ml Inj IV PUSH 4 mg ONCE PRN Administration Preprocedure Morphine Sulfate 2 mg 07/16/25 12:13 Morphine Sulfate (*Crx) 4 Mg/Ml Inj IV PUSH Q2H PRN Pain Rated 7-10 Ondansetron HCl 4 mg 07/06/25 22:57 07/09/25 13:54 Ondansetron Inj 4 Mg/2 Ml Vial IV PUSH 4 mg Q6H PRN Administration Nausea And Vomiting Perflutren Lipid Microsphere 0 ml 07/16/25 11:20 Perflutren Lipid Microspheres 1.5 Ml Vial Diluted To 10 Ml Total Volume IV PUSH 07/19/25 11:20 ONCE PRN adequate visualization Protocol Polyethylene Glycol 17 gm 07/12/25 09:00 07/16/25 09:21 Polyethylene Glycol 3350 17 Gm Powd.Pack PO Not Given QAM XENIA Sodium Chloride 10 ml 07/07/25 14:00 07/17/25 04:59 Central Line Flush IV PUSH 10 ml Q8HR XENIA Administration Sodium Chloride 20 ml 07/07/25 06:38 07/16/25 06:44 Central Line Flush IV PUSH 20 ml PRN PRN Administration after blood draws Sodium Chloride 10 ml 07/16/25 16:21 Central Line Flush IV PUSH PRN PRN with TPN bag changes Spironolactone 25 mg 07/14/25 09:50 07/17/25 09:11 Spironolactone 25 Mg Tablet PO 25 mg QAM XENIA Administration Valacyclovir HCl 1,000 mg 07/15/25 06:00 07/17/25 04:48 Valacyclovir Hcl 500 Mg Tablet PO 1,000 mg Q8HR XENIA Administration Radiology Results: ITS Impressions Upper Quadrant Ultrasound 07/09/25 14:30 IMPRESSION: 1. Normal right upper quadrant ultrasound with no intra or extrahepatic biliary ductal dilation. Venous Doppler Study 07/10/25 15:15 Impression: Negative for DVT. Chest/Abdomen/Pelvis CT 07/10/25 15:44 IMPRESSION: 1. New groundglass opacities in right lung upper lobe, consistent with pneumonia. 2. Small pleural effusions. 3. Distended gallbladder with gallstone suspicious for acute cholecystitis. 4. Worsened liver mass near the gallbladder, consistent with abscess. Cholecystostomy 07/11/25 14:51 IMPRESSION: 1. Successful ultrasound-guided cholecystostomy tube placement. 2. 20 mL bile was sent for aerobic, anaerobic, and fungal cultures. 3. The catheter will be managed by Dr. Sarabia. A catheter cholangiogram may be performed not less than 48 hours after tube placement if clinically indicated to assess cystic duct patency. If cholecystectomy is not eventually performed and the infectious episode has resolved, the tube may be removed over a guidewire, preferably not less than 3 weeks after placement to allow time for a mature catheter tract to form to prevent bile leakage and peritonitis. Chest X-Ray 07/16/25 16:52 Impression: PICC line placement as above Labs Labs: Laboratory Results - last 24 hr 07/16/25 07/16/25 07/16/25 11:41 16:43 20:23 WBC RBC Hgb Hct MCV MCH MCHC RDW Plt Count MPV Immature Gran % (Auto) Neut % (Auto) Lymph % (Auto) Hughes % (Auto) Eos % (Auto) Baso % (Auto) Lymph # (Auto) Hughes # (Auto) Eos # (Auto) Baso # (Auto) Abs Immat Gran (auto) Absolute Neuts (auto) Absolute Nucleated RBC Nucleated RBC % Sodium Potassium Chloride Carbon Dioxide Anion Gap BUN Creatinine Estim Creat Clear Calc Estimated GFR Glucose POC Capillary Glucose 118 H 81 89 Calcium Magnesium Total Bilirubin AST ALT Alkaline Phosphatase Total Protein Albumin 07/17/25 07/17/25 07/17/25 04:06 07:23 11:22 WBC 5.6 RBC 2.46 L Hgb 7.8 L Hct 24.1 L MCV 98.0 MCH 31.7 MCHC 32.4 RDW 13.4 Plt Count 179 MPV 10.2 Immature Gran % (Auto) 0.9 H Neut % (Auto) 83.5 H Lymph % (Auto) 7.6 L Hughes % (Auto) 6.7 Eos % (Auto) 0.9 Baso % (Auto) 0.4 Lymph # (Auto) 0.42 L Hughes # (Auto) 0.4 Eos # (Auto) 0.1 Baso # (Auto) 0.0 Abs Immat Gran (auto) 0.05 H Absolute Neuts (auto) 4.7 Absolute Nucleated RBC 0.000 Nucleated RBC % 0.0 Sodium 136 L Potassium 3.6 Chloride 105 Carbon Dioxide 25 Anion Gap 6 BUN 13 Creatinine 0.78 Estim Creat Clear Calc 84 Estimated GFR > 60 Glucose 86 POC Capillary Glucose 89 123 H Calcium 8.0 L Magnesium 2.1 Total Bilirubin 1.3 AST 50 ALT 47 Alkaline Phosphatase 94 Total Protein 5.8 L Albumin 3.1 L
--- NOTE | 2025-07-17 14:15 | PCPTNOTE ---
Attempted to see patient for PT, however patient declined. Patient reported he was up all day and just got back to bed. Patient reported he did his exercises today.
[2025-07-18] MEDS: AMPICILLIN SODIUM/SULBACTAM 3 GM in SODIUM CHLORIDE 0.9% IV 100 ML 200 ML IVPB (05:57)
[2025-07-18] MEDS: CENTRAL LINE FLUSH 10 ML IV PUSH ×2 (05:57→13:55)
[2025-07-18] MEDS: CENTRAL LINE FLUSH 20 ML IV PUSH (05:57)
[2025-07-18 06:16] LABS: Hematocrit 32.3 % (42.0-52.0); Hemoglobin 10.7 g/dL (14.0-18.0); Mean Corpuscular HGB Conc 33.1 g/dl (32-36); Mean Corpuscular Hemoglobin 31.7 pg (26-34); Mean Corpuscular Volume 95.6 fl (80-100); Platelet Count Result 284 k/mm3 (150-375); Red Blood Count 3.38 M/mm3 (4.6-6.20); White Blood Count 5.7 K/mm3 (4.5-10.0)
[2025-07-18 06:35] LABS: Alanine Aminotransferase 60 U/L (6-50); Albumin Level 3.1 g/dL (3.5-5.1); Alkaline Phosphatase 117 U/L (38-126); Anion Gap 4 mmol/L (4-12); Aspartate Amino Transferase 65 U/L (17-59); Bilirubin,Total 0.9 mg/dL (0.2-1.3); Blood Urea Nitrogen 12 mg/dL (9-20); Calcium 8.1 mg/dL (8.4-10.2); Carbon Dioxide 27 mmol/L (22-30); Chloride 105 mmol/L (98-107); Estimated CRCL calculation 81 ml/min; Estimated Glomerular Filt Rate > 60; Glucose 89 mg/dL (65-110); Potassium 3.7 mmol/L (3.4-5.0); Sodium 136 mmol/L (137-145); Total Protein 6.2 g/dL (6.3-8.2)
[2025-07-18 07:05] VITALS: BP 137/85; PULSE 72; RESP 16; TEMP 36.7; O2SAT 95
--- NOTE | 2025-07-18 08:03 | P.PNCA_ITS ---
Progress Note: A&P Assessment and Plan (1) Acute systolic heart failure: Code(s): I50.21 - Acute systolic (congestive) heart failure Status: Acute (2) HTN (hypertension): Code(s): I10 - Essential (primary) hypertension Status: Acute (3) HLD (hyperlipidemia): Qualifiers: Hyperlipidemia type: mixed hyperlipidemia Qualified Code(s): E78.2 - Mixed hyperlipidemia Code(s): E78.5 - Hyperlipidemia, unspecified Status: Acute (4) Bradycardia: Code(s): R00.1 - Bradycardia, unspecified Status: Acute (5) Elevated troponin: Code(s): R79.89 - Other specified abnormal findings of blood chemistry Status: Acute (6) HTN (hypertension): Qualifiers: Hypertension type: primary hypertension Qualified Code(s): I10 - Essential (primary) hypertension Code(s): I10 - Essential (primary) hypertension Status: Acute Plan Diagnosis: New onset acute systolic heart failure with LVEF of 25-30% (prior echo from January/2025 showed normal LVEF of 60% and no significant valvular pathology) Elevated troponin most likely secondary to stress of acute illness; no chest pain Hypertension Hyperlipidemia Paroxysmal AFib status post ablation in 2023 Septic shock- gram-negative bacteremia; pneumonia; acute cholecystitis, liver abscess status post cholecystostomy tube placement Thrombocytopenia status post platelet transfusion Plan: -Limited TTE done yesterday to evaluate LVEF. It shows LVEF improved to 60-65% and no significant valvular pathology -Guideline directed medical therapy initiated during this hospitalization. Continue metoprolol and losartan. I will stop spironolactone and empagliflozin at this point as I suspect the initial echo may have been done during tachycardia causing EF to be underestimated. No further cardiac workup required at this time. Patient can follow up with his outpatient security representative after discharge -Check and replace electrolytes to keep potassium greater than 4 and magnesium greater than 2 -Management of other medical problems per primary team Thank you for allowing us to participate in the care of this patient. Cardiology will sign off. Please call of for any questions. Subjective Date/time seen: 07/18/25 08:03 Interval history: Reason for encounter: New cardiomyopathy with LVEF of 25% Relevant history: 74-year-old male patient admitted with septic shock secondary to acute cholecystitis and liver abscess status post cholecystostomy tube and on IV antibiotics; he has thrombocytopenia; TTE showed depressed LVEF of 25% Interval history: No chest pain, shortness of breath, dizziness. Limited TTE was done yesterday and shows normal LVEF of 60-65% and no significant valvular pathology. Review of Systems Cardiovascular: Comments: As per HPI Respiratory: Comments: As per HPI Exam Narrative: General: Alert oriented x3, no acute distress Neck: Supple, no JVD Chest: Bilaterally clear to auscultation, no rales or rhonchi Cardiac: S1, S2 +, regular rate, regular rhythm, no murmurs or rubs Extremities: No pedal edema, no skin rash Neurologic: Alert and oriented x3, no focal neurological deficits Objective Data Vital Signs Vital Signs: Vital Signs - 24 hr 07/17/25 08:08 07/17/25 09:10 07/17/25 16:08 Temperature 37.2 C 36.8 C Pulse Rate 81 93 67 Respiratory Rate 18 18 Blood Pressure 119/82 137/77 Pulse Oximetry 94 97 07/17/25 20:09 07/17/25 22:29 07/18/25 07:05 Temperature 36.5 C 36.7 C Pulse Rate 78 60 72 Respiratory Rate 16 16 Blood Pressure 108/66 137/85 Pulse Oximetry 94 95 Intake/Output Intake/Output: Intake & Output 07/15/25 07/16/25 07/17/25 07/18/25 23:59 23:59 23:59 23:59 Intake Total 1100 1880 1520 200 Output Total 2845 3020 1075 1035 Balance -6745 -1140 564 -835 Meds/Results Medications: Active Medications Generic Name Dose Route Start Last Admin Trade Name Freq PRN Reason Stop Dose Admin Acetaminophen 650 mg 07/06/25 22:57 07/12/25 20:18 Acetaminophen 325 Mg Tablet PO 650 mg Q4H PRN Administration Mild Pain (1-3) or Fever Al Hydrox/Mg Hydrox/Simethicone 30 ml 07/06/25 22:57 Mag Hydrox/Al Hydrox/Simeth 30 Ml Udc PO QID PRN Dyspepsia Artificial Tears 1 drop 07/11/25 09:15 07/17/25 09:10 Artificial Tears Ophth Soln 15 Ml Bottle EACH EYE 1 drop QID PRN Administration Dry Eye(s) Bisacodyl 5 mg 07/06/25 22:57 Bisacodyl 5 Mg Tablet Ec PO DAILY PRN Constipation Bisacodyl 10 mg 07/12/25 07:55 Bisacodyl 10 Mg Suppository RECTAL QAM PRN Constipation Dextrose 12.5 gm 07/06/25 23:18 Dextrose 50% 25 Gm/50 Ml Syringe IV PUSH PRN PRN Hypoglycemia Protocol Diphenhydramine HCl 25 mg 07/15/25 03:40 07/15/25 23:23 Diphenhydramine Hcl Cap 25 Mg Capsule PO 25 mg Q6H PRN Administration Itching Empagliflozin 10 mg 07/16/25 11:20 07/17/25 09:11 Empagliflozin 10 Mg Tablet PO 10 mg DAILY XENIA Administration Enoxaparin Sodium 40 mg 07/07/25 09:00 07/17/25 09:10 Enoxaparin 40 Mg/0.4 Ml Syringe SUB-Q 40 mg DAILY XENIA Administration Famotidine 20 mg 07/14/25 21:00 07/17/25 20:08 Famotidine 20 Mg Tablet PO 20 mg Q12HR XENIA Administration Fluticasone Propionate 1 spray 07/07/25 09:00 07/17/25 23:48 Fluticasone Propionate 0.05% Na Spr 16 Gm Btl (*Bkc) NASAL 1 spray Q12HR XENIA Administration Glucagon 1 mg 07/06/25 23:18 Glucagon For Inj 1 Mg Vial IM PRN PRN Hypoglycemia Protocol Glucose 15 gm 07/06/25 23:18 Glucose Oral Gel 15 Gm Of Glucse In 37.5 Gm Tube PO PRN PRN Hypoglycemia Protocol Dextrose 1,000 mls @ 100 mls/hr 07/06/25 23:18 Dextrose 5% 1,000 Ml IVPB PRN PRN Hypoglycemia Protocol Ampicillin Sodium/Sulbactam 100 mls @ 200 mls/hr 07/11/25 10:30 07/18/25 06:27 Sodium 3 gm/ Sodium Chloride IVPB Infused Q6HR XENIA Infusion Insulin Aspart 3 - 6 units 07/07/25 08:00 07/17/25 16:40 Insulin Aspart (*Bkc) 100 Units/Ml SUB-Q Not Given TIDWM XENIA Protocol Losartan Potassium 25 mg 07/15/25 09:00 07/17/25 09:11 Losartan Potassium 25 Mg Tablet PO 25 mg DAILY XENIA Administration Melatonin 5 mg 07/15/25 14:56 Melatonin 5 Mg Tablet PO HS PRN Sleep Metoprolol Tartrate 12.5 mg 07/10/25 21:00 07/17/25 20:09 Metoprolol Tartrate 12.5 Mg Tablet PO 12.5 mg Q12HR XENIA Administration Morphine Sulfate 4 mg 07/11/25 12:23 07/11/25 13:30 Morphine Sulfate (*Crx) 4 Mg/Ml Inj IV PUSH 4 mg ONCE PRN Administration Preprocedure Morphine Sulfate 2 mg 07/16/25 12:13 Morphine Sulfate (*Crx) 4 Mg/Ml Inj IV PUSH Q2H PRN Pain Rated 7-10 Ondansetron HCl 4 mg 07/06/25 22:57 07/09/25 13:54 Ondansetron Inj 4 Mg/2 Ml Vial IV PUSH 4 mg Q6H PRN Administration Nausea And Vomiting Perflutren Lipid Microsphere 0 ml 07/16/25 11:20 Perflutren Lipid Microspheres 1.5 Ml Vial Diluted To 10 Ml Total Volume IV PUSH 07/19/25 11:20 ONCE PRN adequate visualization Protocol Polyethylene Glycol 17 gm 07/12/25 09:00 07/17/25 13:15 Polyethylene Glycol 3350 17 Gm Powd.Pack PO Not Given QAM XENIA Sodium Chloride 10 ml 07/07/25 14:00 07/18/25 05:57 Central Line Flush IV PUSH 10 ml Q8HR XENIA Administration Sodium Chloride 20 ml 07/07/25 06:38 07/18/25 05:57 Central Line Flush IV PUSH 20 ml PRN PRN Administration after blood draws Sodium Chloride 10 ml 07/16/25 16:21 Central Line Flush IV PUSH PRN PRN with TPN bag changes Spironolactone 25 mg 07/14/25 09:50 07/17/25 09:11 Spironolactone 25 Mg Tablet PO 25 mg QAM XENIA Administration Valacyclovir HCl 1,000 mg 07/15/25 06:00 07/18/25 05:57 Valacyclovir Hcl 500 Mg Tablet PO 1,000 mg Q8HR XENIA Administration Radiology Results: ITS Impressions Upper Quadrant Ultrasound 07/09/25 14:30 IMPRESSION: 1. Normal right upper quadrant ultrasound with no intra or extrahepatic biliary ductal dilation. Venous Doppler Study 07/10/25 15:15 Impression: Negative for DVT. Chest/Abdomen/Pelvis CT 07/10/25 15:44 IMPRESSION: 1. New groundglass opacities in right lung upper lobe, consistent with pneumonia. 2. Small pleural effusions. 3. Distended gallbladder with gallstone suspicious for acute cholecystitis. 4. Worsened liver mass near the gallbladder, consistent with abscess. Cholecystostomy 07/11/25 14:51 IMPRESSION: 1. Successful ultrasound-guided cholecystostomy tube placement. 2. 20 mL bile was sent for aerobic, anaerobic, and fungal cultures. 3. The catheter will be managed by Dr. Sarabia. A catheter cholangiogram may be performed not less than 48 hours after tube placement if clinically indicated to assess cystic duct patency. If cholecystectomy is not eventually performed and the infectious episode has resolved, the tube may be removed over a guidewire, preferably not less than 3 weeks after placement to allow time for a mature catheter tract to form to prevent bile leakage and peritonitis. Chest X-Ray 07/16/25 16:52 Impression: PICC line placement as above Labs Labs: Laboratory Results - last 24 hr 07/17/25 07/17/25 07/17/25 11:22 15:17 22:28 WBC RBC Hgb Hct MCV MCH MCHC RDW Plt Count MPV Sodium Potassium Chloride Carbon Dioxide Anion Gap BUN Creatinine Estim Creat Clear Calc Estimated GFR Glucose POC Capillary Glucose 123 H 92 109 H Calcium Total Bilirubin AST ALT Alkaline Phosphatase Total Protein Albumin 07/18/25 06:03 WBC 5.7 RBC 3.38 L Hgb 10.7 L Hct 32.3 L MCV 95.6 MCH 31.7 MCHC 33.1 RDW 13.5 Plt Count 284 D MPV 9.5 Sodium 136 L Potassium 3.7 Chloride 105 Carbon Dioxide 27 Anion Gap 4 BUN 12 Creatinine 0.82 Estim Creat Clear Calc 81 Estimated GFR > 60 Glucose 89 POC Capillary Glucose Calcium 8.1 L Total Bilirubin 0.9 AST 65 H ALT 60 H Alkaline Phosphatase 117 Total Protein 6.2 L Albumin 3.1 L
[2025-07-18] MEDS: LOSARTAN POTASSIUM 25 MG TABLET PO (08:21)
[2025-07-18 08:22] VITALS: PULSE 72
[2025-07-18] MEDS: FAMOTIDINE 20 MG TABLET PO (08:22)
[2025-07-18] MEDS: METOPROLOL TARTRATE 12.5 MG TABLET PO (08:22)
[2025-07-18] MEDS: ENOXAPARIN 40 MG/0.4 ML SYRINGE SUB-Q (08:22)
[2025-07-18] MEDS: FLUTICASONE PROPIONATE 0.05% NA SPR 16 GM BTL (*BKC) 1 SPRAY NASAL (08:23)
--- NOTE | 2025-07-18 08:54 | P.DS_ITS ---
DS: Admitting Diagnosis Discharge Date 0 07/14 Admitting Diagnosis Sepsis DS: Discharge Diagnosis Discharge Diagnosis (1) Septic shock: Code(s): A41.9 - Sepsis, unspecified organism; R65.21 - Severe sepsis with septic shock Status: Acute Assessment and Plan: Please refer to hospital course for brief summary The patient was examined at the bedside. Patient reports a history of prostate cancer for which he underwent radiation for 9 weeks. Patient was currently admitted in the setting of acute cholecystitis with liver abscess for which he underwent cholecystostomy tube placement, CHF, echocardiogram performed on 0 07/09 shows ejection fraction 25%. It has significantly improved to 60-65% on the echo, which was performed on 07/16. The patient's hemoglobin level has dropped from 9.9 to 7.8. His platelet count has been significantly improved to 179. The patient had a platelet transfusion of 2 units previously. From a surgical standpoint, the patient can be discharged according to the ID recommendation for antibiotics. The patient will be discharged with ertapenem and daptomycin for at least 2 weeks. Patient is currently on Unasyn. Pansensitive E coli and bacteriodes bacteremia from gallbladder source CT chest showed pneumonia RUL with acute cholecystitis Lower extremity Dopplers are negative for DVT Continue Abx, ID and Gen surgery follorwing (2) Right lower lobe pneumonia: Qualifiers: Pneumonia type: due to unspecified organism Qualified Code(s): J18.9 - Pneumonia, unspecified organism Code(s): J18.9 - Pneumonia, unspecified organism Status: Acute Assessment and Plan: Now on room air -respiratory panel will has been ordered and negative Add incentive spirometry Now on room air Continue abx ,ID following (3) Abnormal computed tomography of gallbladder: Code(s): R93.2 - Abnormal findings on diagnostic imaging of liver and biliary tract Status: Acute Assessment and Plan: See above (4) Congestive heart failure: Code(s): I50.9 - Heart failure, unspecified Status: Acute Assessment and Plan: Chest x-ray shows diffuse bilateral infiltrates. Patient had elevated BNP on presentation Echocardiogram shows EF of 25-30% COntineu losartan 25mg, Spironolactone and Metoprolol Limited [facility] today per cards Cardiology recommends outpatient cardiac cath with primary cardiology 0 07/17: Echocardiogram performed on 07/16 shows ejection fraction 60-65% (5) Thrombocytopenia: Code(s): D69.6 - Thrombocytopenia, unspecified Status: Acute Assessment and Plan: Multifactorial thrombocytopenia likely secondary to sepsis. I will transfuse 2 units of platelets in anticipation of invasive procedure. Lovenox some and patient is on SCDs 07/11 patient was given 2 units platelets for cholecystostomy placement Plts 141 today 0 07/17: Platelet 179 (6) Electrolyte abnormality: Code(s): E87.8 - Other disorders of electrolyte and fluid balance, not elsewhere classified Status: Acute Assessment and Plan: Potassium and calcium replacement ordered Plan Acute cholecystitis with liver abscess on Cholecystostomy drainage Continue Unasyn per ID CT AP reviewed Blood culture positive for pansensitive E coli ad Bacteriodes, repeat blood culture still no growth Cholecystostomy drainage culture positive for pansensitive E coli and Enterococcus faecium Patient is currently on Unasyn Patient can be discharged with ertapenem and daptomycin as per ID recommendation ID and Gen surgery following DVT prophylaxis: On Sq Lovenox, thrombocytopenia resolved Stress ulcer prophylaxis: Ppi Nutrition: low fat diet . Advance as per General surgery Code Status: Full code DS: Summary Hospital Course Hospital Course: Van Young is a 74 year old male with significant past medical history of essential hypertension, paroxysmal atrial fibrillation status post ablation in 2023, history of prostate cancer status post radiation, diabetes presented the outside hospital in [facility] with complains of shortness of breath, abdominal bloating and chills. Recently they were in [place] for a vacation. Couple of days ago patient ate something anti compelling and felt his abdominally distended along with belching and passing gas. Also an episode of vomiting. At the outside hospital patient had a fever of 102.5. Was tachycardic, tachypneic in the 120s, hypotensive. Leukopenia with a WBC count at 1.2, 90% neutrophils and 2% bands. Thrombocytopenia with a platelet count of 111. Hemoglobin stable 14.1 at the outside facility. His initial lactic acid was 4.9 increased up to 5.7 despite receiving 30 mL/kg IV fluid bolus. Patient was started on Levophed, central line was inserted and patient was transferred to [facility] for further management. He was started on cefepime and vancomycin the outside hospital. CTA of the chest abdomen pelvis showed no large pulmonary embolism, right lower lobe pneumonia and cholelithiasis with associated gallbladder wall distention with acute cholecystitis might be likely cause. Bilirubin was 2.2,. COVID PCR is negative UA was negative for nitrates and leukocyte esterase or bacteria. Blood cultures were obtained at the outside hospital. Upon arrival to the ICU patient was started on azithromycin along with cefepime and vancomycin. Assumed care 0 07/17-07/18: During the hospitalization patient was treated for sepsis with septic shock due to acute cholecystitis with liver abscess, right lower lobe pneumonia, CHF, and thrombocytopenia. Patient reports a history of prostate cancer for which he underwent radiation for 9 weeks. Patient was currently admitted in the setting of acute cholecystitis with liver abscess for which he underwent cholecystostomy tube placement, CHF, echocardiogram performed on 07/09 shows ejection fraction 25%. It has significantly improved to 60-65% on the echo, which was performed on 07/16. The patient's hemoglobin level has dropped from 9.9 to 7.8. His platelet count has been significantly improved to 179. The patient had a platelet transfusion of 2 units previously. From a surgical standpoint, the patient can be discharged according to the ID recommendation for antibiotics. Patient is currently on Unasyn. The patient will be discharged with ertapenem and daptomycin for at least 2 weeks. Patient needs to follow-up with surgery.Will plan an outpatient cholangiogram through the cholecystostomy tube and f/u with Dr. Sarabia in the next few weeks. In regards low ejection fraction on 07/09 possibly can be underestimated due to tachycardia. The left ventricular ejection fraction improved 65% according to the echo performed on 07/16. Cardiology recommends no further workup but recommend to follow up as a outpatient upon discharge. Cardiology discontinued spironolactone and Jardiance but advised to continue metoprolol and losartan. In regards to PLT patient received 2 units. Currently his PLT is stable. Follow up CBC in a week discharge. On the day of discharge, the patient was seen and examined. Vital signs were stable. Physical exam were stable and labs were reviewed at length. Discharge instructions, medications, and follow-up appointments were discussed with the patient at length and all day questions were answered. ER warnings were given. Status at Discharge Cognitive/behavioral status at discharge: Stable Time Spent with Patient Time attestation: Total time spent providing and/or coordinating discharge services: 45 minutes Exam Narrative: General: Pleasant gentleman in no acute distress HEENT:? Pupils equal reactive, sclerae is clear, moist oral mucosa Neck:? Supple Respiratory:? Coarse breath sounds bilaterally, decreased at bases, no wheezing, no significant crackles Cardiac:? S1-S2 normal, regular rate and rhythm Abdomen:? Soft, nontender, nondistended with normoactive bowel sounds, cholecystostomy drain in the right upper quadrant with dark liquid output Extremities:? No significant edema Neuro:? Patient awake, alert, oriented x3, nonfocal, answers to questions appropriately and follows simple commands in all extremities Skin:? Warm and dry, no skin lesions noted Psych:? Normal mentation and affect Const: Other: Mildly ill-appearing, obese, appears stated age HENMT: Other: Mucous membranes are dry, upper and lower dentures in place Eyes: Other: Mild scleral icterus, no conjunctival pallor, pupils are equal and reactive Neck: Other: No JVD, no lymphadenopathy, right IJ present Resp: Other: Clear to auscultation bilaterally, no increased work of breathing Cardio: Other: Sinus tachycardia, 2+ bilateral radial pedal pulses, no JVD, no murmur GI: Other: Distended, nontender to palpation, hypoactive bowel sounds, no organomegaly : Other: Ac catheter in place with cloudy dark kirsty urine Skin: Other: Warm to touch, mild jaundice, no pallor Neuro: Other: Alert oriented x4, speech is clear, no facial asymmetry, no localizing neurologic deficits noted during the course of conversation Extrem: Other: No clubbing, cyanosis or edema, moves all extremities equally Psych: Other: Appropriate mood and affect, pleasant and cooperative, judgment insight intact DS: Data Data Completed and Pending Labs on day of discharge: Labs from last 24 hours 07/18/25 07/18/2525 07:59 06:03 22:28 WBC 5.7 RBC 3.38 L Hgb 10.7 L Hct 32.3 L MCV 95.6 MCH 31.7 MCHC 33.1 RDW 13.5 Plt Count 284 D MPV 9.5 Sodium 136 L Potassium 3.7 Chloride 105 Carbon Dioxide 27 Anion Gap 4 BUN 12 Creatinine 0.82 Estim Creat Clear Calc 81 Estimated GFR > 60 Glucose 89 POC Capillary Glucose 97 109 H Calcium 8.1 L Total Bilirubin 0.9 AST 65 H ALT 60 H Alkaline Phosphatase 117 Total Protein 6.2 L Albumin 3.1 L 07/17/25 07/17/25 15:17 11:22 WBC RBC Hgb Hct MCV MCH MCHC RDW Plt Count MPV Sodium Potassium Chloride Carbon Dioxide Anion Gap BUN Creatinine Estim Creat Clear Calc Estimated GFR Glucose POC Capillary Glucose 92 123 H Calcium Total Bilirubin AST ALT Alkaline Phosphatase Total Protein Albumin Preliminary micro results at discharge 07/11/25 14:08 Fungal Culture - Preliminary Bile Imaging Radiologist's impression: ITS Impressions Chest X-Ray 07/08/25 13:25 Impression: Bilateral pneumonia. The findings appear progressed compared to the previous study. Chest X-Ray 07/08/25 13:51 Impression: Mild CHF. Early basilar pneumonia suspected Chest X-Ray 07/09/25 07:15 IMPRESSION: 1. Unchanged mild opacities at the left lung base which could represent atelectasis or pneumonia. 2. Unchanged elevation of the right hemidiaphragm. Upper Quadrant Ultrasound 07/09/25 14:30 IMPRESSION: 1. Normal right upper quadrant ultrasound with no intra or extrahepatic biliary ductal dilation. Chest X-Ray 07/10/25 08:10 IMPRESSION: 1. Unchanged elevation right hemidiaphragm opacity bilateral lower lung zones which could represent atelectasis or pneumonia. Venous Doppler Study 07/10/25 15:15 Impression: Negative for DVT. Chest/Abdomen/Pelvis CT 07/10/25 15:44 IMPRESSION: 1. New groundglass opacities in right lung upper lobe, consistent with pneumonia. 2. Small pleural effusions. 3. Distended gallbladder with gallstone suspicious for acute cholecystitis. 4. Worsened liver mass near the gallbladder, consistent with abscess. Cholecystostomy 07/11/25 14:51 IMPRESSION: 1. Successful ultrasound-guided cholecystostomy tube placement. 2. 20 mL bile was sent for aerobic, anaerobic, and fungal cultures. 3. The catheter will be managed by Dr. Sarabia. A catheter cholangiogram may be performed not less than 48 hours after tube placement if clinically indicated to assess cystic duct patency. If cholecystectomy is not eventually performed and the infectious episode has resolved, the tube may be removed over a guidewire, preferably not less than 3 weeks after placement to allow time for a mature catheter tract to form to prevent bile leakage and peritonitis. Chest X-Ray 07/16/25 16:52 Impression: PICC line placement as above Discharge Plan Discharge Attending physician on discharge: Alessio Washburn Consulting providers: Jose Ramon Castro; Duy Roque; Bre Stewart; Miguel Sarabia Discharging Clinician: Alessio Washbrun Anticipated Discharge Date/Time: 07/18/25 09:04 Patient Disposition: Home with Home Health Service Activity: as tolerated Diet: as tolerated Discharge Instructions: Cholecystostomy tube care: * Empty and record output from drain daily * OK to sponge bathe, keep the drain and dressing dry * May change gauze dressing every 3 days * Our office will schedule a contrast test, called a cholangiogram, to be done in about 2 weeks. We will call you when this is scheduled. You will then follow-up with Dr. Sarabia after this test to discuss test results and options regarding your gallbladder. Follow-up with surgeon for outpatient cholangiogram through the cholecystostomy tube in the next few weeks. Ordered CBC and follow-up the results with PCP for anemia and platelet Patient is discharged with the ertapenem and daptomycin until 0 07/24 Patient needs to follow-up with the ID and PCP for further instruction for antibiotic continue In the event of any concerning symptoms please return to ED Please follow-up with Dr. Ram for thrombocytopenia Per Care Coordination: [facility] has been arranged to follow at discharge. [facility] will contact you prior to their first visit. [facility] will follow for RN drain care, IV antibiotic assistance, and PICC line dressing care. PT/OT eval and treat as needed. [facility] can be contacted at [phone]. Nursing please fax discharge paperwork to . [facility] has been arranged to follow at discharge. Please contact this service if you have any issues or questions regarding your infusion medication. [facility] can be contacted at [phone] Patient Instructions: Antibiotic Form, Norepinephrine (By injection), Sepsis (GEN), Hypotension (GEN), Pneumonia (GEN) Patient Language: Pashto Stand Alone Forms: General Discharge Information Follow-up/Referrals: Noah Ram MD [Physician, Hematology] Referral Note: Thrombocytopenia Duy Roque MD [Physician, Infectious Disease] Sourav Olguin MD [Primary Care Provider, Internal Medicine] Referral Note: Patient underwent cholecystostomy tube placement due to acute cholecystitis with liver abscess. Patient discharged with ertapenem and daptomycin until 0 07/24. Bre Stewart MD [Physician, Cardiology] Miguel Sarabia DO [Physician, General Surgery] - Keep Reg. Scheduled Appt. Discharge Medications: New ertapenem 1 gram recon soln 1 g IV DAILY 7 Days daptomycin 500 mg recon soln 700 mg IV Q24H Rx Instructions: administer over 30 mins losartan 25 mg Tablet 25 mg PO DAILY Qty: 30 0RF metoprolol tartrate 25 mg tablet 12.5 mg PO BID Qty: 30 0RF polyethylene glycol 3350 [Miralax] 17 gram Powder In Packet 17 g PO QAM Qty: 30 0RF valacyclovir [Valtrex] 500 mg Tablet 1,000 mg PO Q8HR Qty: 30 0RF Continued sildenafil [Viagra] 100 mg tablet 100 mg PO DAILY PRN (Reason: sexual activity) Qty: 30 2RF Rx Instructions: administer 30 minutes to 4 hours before activity multivitamin Tablet 1 tablet PO DAILY aspirin 81 mg Tablet,Delayed Release (Dr/Ec) 81 mg PO DAILY cranberry 500 mg Capsule 500 mg PO DAILY cholecalciferol (vitamin D3) [Vitamin D3] 25 mcg (1,000 unit) Tablet 1,000 unit PO DAILY fluticasone propionate [Flonase Allergy Relief] 50 mcg/actuation spray,suspension 1 spray intranasal BID Qty: 16 2RF Rx Instructions: administer into each nostril metformin 500 mg tablet See Rx Instructions .ROUTE .COMPLEX Qty: 90 3RF Dose Instruction: TAKE 1 TABLET BY MOUTH IN THE MORNING Rx Instructions: TAKE 1 TABLET BY MOUTH IN THE MORNING simvastatin 40 mg tablet See Rx Instructions .ROUTE .COMPLEX Qty: 90 2RF Dose Instruction: TAKE 1 TABLET BY MOUTH DAILY AT BEDTIME Rx Instructions: TAKE 1 TABLET BY MOUTH DAILY AT BEDTIME Discontinued losartan 100 mg tablet See Rx Instructions .ROUTE .COMPLEX Qty: 90 2RF Dose Instruction: TAKE 1 TABLET BY MOUTH DAILY Rx Instructions: TAKE 1 TABLET BY MOUTH DAILY Other Ambulatory Orders: Complete Blood Count with Diff (Routine) Timeframe: 1 Week Location: Determined by Patient Ordered By: Alessio Washburn Date of admission: 07/07/25 00:31 Primary Care Provider: Sourav Olguin Admitting Provider: Asuncion Ruiz Attending physician on admission: Asuncion Ruiz Condition: Stable Quality VTE Prophylaxis VTE prophylaxis: mechanical ordered
--- NOTE | 2025-07-18 10:01 | WPDINFPN2 ---
Progress Note: A&P Assessment and Plan (1) Gram negative septicemia: Code(s): A41.50 - Gram-negative sepsis, unspecified Status: Acute (2) Septic shock: Code(s): A41.9 - Sepsis, unspecified organism; R65.21 - Severe sepsis with septic shock Status: Acute (3) Abdominal pain in male: Code(s): R10.9 - Unspecified abdominal pain Status: Acute (4) Diarrhea: Code(s): R19.7 - Diarrhea, unspecified Status: Acute (5) Elevated LFTs: Code(s): R79.89 - Other specified abnormal findings of blood chemistry Status: Acute (6) Acute hypoxic respiratory failure: Code(s): J96.01 - Acute respiratory failure with hypoxia Status: Acute (7) Thrombocytopenia: Code(s): D69.6 - Thrombocytopenia, unspecified Status: Acute (8) Ejection fraction < 50%: Status: Acute Plan # Pansensitive E coli and Bacteroides bacteremia associated with complicated cholecystitis with associated liver abscess. -- immediate follow-up blood cultures 07/08 again with delayed growth of Gram-negative rods. 07/10 blood cultures remain negative. -- now status post IR cholecystostomy tube placement. Procedure cultures townsend-sensitive E.coli and townsend-sensitive E. faecium # Severe sepsis with septic shock. -- now off of pressors. # Hypoxemia. -- may be a manifestation of sepsis, heart failure with pulmonary edema, or pneumonia. -- improved. # Diminished ejection fraction. # Mild transaminitis. -- improving. Bilirubin normalized. # Thrombocytopenia. -- suspect sepsis versus medication induced. -- platelet account appears to be normalizing Plan: Unasyn while in-house For outpt iv abx, plan ertapenem 1g IV Q24hrs and Daptomycin 700mg IV Q24hrs through 07/24/25. May extend antimicrobial therapy based upon patient's clinical status. will consider oral stepdown therapy thereafter. OK for telemed visit for follow up with Dr. Brodie Ordoñez [facility] in place Antimicrobial plan of care discussed with patient at bedside. All questions answered. Discharge planning per primary service Patient was seen via video telehealth consultation with the assistance of staff. Chart, data, and patient independently reviewed. Patient was located at [facility] while I was located in my [place] office. Received verbal consent from patient. Subjective Date/time seen: 07/18/25 10:01 Interval history: Patient afebrile. No acute events. Patient looking forward to going home. He will receive first dose of Daptomycin and Invanz prior to discharge. Review of Systems Review of Systems: All systems reviewed & are unremarkable except as noted in HPI and below Exam Narrative: up in chair. good spirits. family with him Breathing comfortably . Abdomen with some distention. Cholecystostomy tube drainage with chocolate colored liquid output. No evidence of rash. No pruritus. RUE PICC (07/16/25) intact Objective Data Vital Signs Vital Signs: Vital Signs - 24 hr 07/17/25 16:08 07/17/25 20:09 07/17/25 22:29 Temperature 98.3 F 97.7 F Pulse Rate 67 78 60 Respiratory Rate 18 16 Blood Pressure 137/77 108/66 Pulse Oximetry 97 94 07/18/25 07:05 07/18/25 08:22 Temperature 98.0 F Pulse Rate 72 72 Respiratory Rate 16 Blood Pressure 137/85 Pulse Oximetry 95 Intake/Output Intake/Output: Intake & Output 07/15/25 07/16/25 07/17/25 07/18/25 23:59 23:59 23:59 23:59 Intake Total 1100 1880 1520 200 Output Total 2845 3020 1075 1035 [facility]9379 [phone] Meds/Results Medications: Active Medications Generic Name Dose Route Start Last Admin Trade Name Freq PRN Reason Stop Dose Admin Acetaminophen 650 mg 07/06/25 22:57 07/12/25 20:18 Acetaminophen 325 Mg Tablet PO 650 mg Q4H PRN Administration Mild Pain (1-3) or Fever Al Hydrox/Mg Hydrox/Simethicone 30 ml 07/06/25 22:57 Mag Hydrox/Al Hydrox/Simeth 30 Ml Udc PO QID PRN Dyspepsia Artificial Tears 1 drop 07/11/25 09:15 07/17/25 09:10 Artificial Tears Ophth Soln 15 Ml Bottle EACH EYE 1 drop QID PRN Administration Dry Eye(s) Bisacodyl 5 mg 07/06/25 22:57 Bisacodyl 5 Mg Tablet Ec PO DAILY PRN Constipation Bisacodyl 10 mg 07/12/25 07:55 Bisacodyl 10 Mg Suppository RECTAL QAM PRN Constipation Dextrose 12.5 gm 07/06/25 23:18 Dextrose 50% 25 Gm/50 Ml Syringe IV PUSH PRN PRN Hypoglycemia Protocol Diphenhydramine HCl 25 mg 07/15/25 03:40 07/15/25 23:23 Diphenhydramine Hcl Cap 25 Mg Capsule PO 25 mg Q6H PRN Administration Itching Enoxaparin Sodium 40 mg 07/07/25 09:00 07/18/25 08:22 Enoxaparin 40 Mg/0.4 Ml Syringe SUB-Q 40 mg DAILY XENIA Administration Famotidine 20 mg 07/14/25 21:00 07/18/25 08:22 Famotidine 20 Mg Tablet PO 20 mg Q12HR XENIA Administration Fluticasone Propionate 1 spray 07/07/25 09:00 07/18/25 08:23 Fluticasone Propionate 0.05% Na Spr 16 Gm Btl (*Bkc) NASAL 1 spray Q12HR XENIA Administration Glucagon 1 mg 07/06/25 23:18 Glucagon For Inj 1 Mg Vial IM PRN PRN Hypoglycemia Protocol Glucose 15 gm 07/06/25 23:18 Glucose Oral Gel 15 Gm Of Glucse In 37.5 Gm Tube PO PRN PRN Hypoglycemia Protocol Dextrose 1,000 mls @ 100 mls/hr 07/06/25 23:18 Dextrose 5% 1,000 Ml IVPB PRN PRN Hypoglycemia Protocol Ampicillin Sodium/Sulbactam 100 mls @ 200 mls/hr 07/11/25 10:30 07/18/25 06:27 Sodium 3 gm/ Sodium Chloride IVPB Infused Q6HR XENIA Infusion Insulin Aspart 3 - 6 units 07/07/25 08:00 07/18/25 08:17 Insulin Aspart (*Bkc) 100 Units/Ml SUB-Q Not Given TIDWM XENIA Protocol Losartan Potassium 25 mg 07/15/25 09:00 07/18/25 08:21 Losartan Potassium 25 Mg Tablet PO 25 mg DAILY XENIA Administration Melatonin 5 mg 07/15/25 14:56 Melatonin 5 Mg Tablet PO HS PRN Sleep Metoprolol Tartrate 12.5 mg 07/10/25 21:00 07/18/25 08:22 Metoprolol Tartrate 12.5 Mg Tablet PO 12.5 mg Q12HR XENIA Administration Morphine Sulfate 4 mg 07/11/25 12:23 07/11/25 13:30 Morphine Sulfate (*Crx) 4 Mg/Ml Inj IV PUSH 4 mg ONCE PRN Administration Preprocedure Morphine Sulfate 2 mg 07/16/25 12:13 Morphine Sulfate (*Crx) 4 Mg/Ml Inj IV PUSH Q2H PRN Pain Rated 7-10 Ondansetron HCl 4 mg 07/06/25 22:57 07/09/25 13:54 Ondansetron Inj 4 Mg/2 Ml Vial IV PUSH 4 mg Q6H PRN Administration Nausea And Vomiting Perflutren Lipid Microsphere 0 ml 07/16/25 11:20 Perflutren Lipid Microspheres 1.5 Ml Vial Diluted To 10 Ml Total Volume IV PUSH 07/19/25 11:20 ONCE PRN adequate visualization Protocol Polyethylene Glycol 17 gm 07/12/25 09:00 07/18/25 08:23 Polyethylene Glycol 3350 17 Gm Powd.Pack PO Not Given QAM XENIA Sodium Chloride 10 ml 07/07/25 14:00 07/18/25 05:57 Central Line Flush IV PUSH 10 ml Q8HR XENIA Administration Sodium Chloride 20 ml 07/07/25 06:38 07/18/25 05:57 Central Line Flush IV PUSH 20 ml PRN PRN Administration after blood draws Sodium Chloride 10 ml 07/16/25 16:21 Central Line Flush IV PUSH PRN PRN with TPN bag changes Valacyclovir HCl 1,000 mg 07/15/25 06:00 07/18/25 05:57 Valacyclovir Hcl 500 Mg Tablet PO 1,000 mg Q8HR XENIA Administration Radiology Results: ITS Impressions Upper Quadrant Ultrasound 07/09/25 14:30 IMPRESSION: 1. Normal right upper quadrant ultrasound with no intra or extrahepatic biliary ductal dilation. Venous Doppler Study 07/10/25 15:15 Impression: Negative for DVT. Chest/Abdomen/Pelvis CT 07/10/25 15:44 IMPRESSION: 1. New groundglass opacities in right lung upper lobe, consistent with pneumonia. 2. Small pleural effusions. 3. Distended gallbladder with gallstone suspicious for acute cholecystitis. 4. Worsened liver mass near the gallbladder, consistent with abscess. Cholecystostomy 07/11/25 14:51 IMPRESSION: 1. Successful ultrasound-guided cholecystostomy tube placement. 2. 20 mL bile was sent for aerobic, anaerobic, and fungal cultures. 3. The catheter will be managed by Dr. Sarabia. A catheter cholangiogram may be performed not less than 48 hours after tube placement if clinically indicated to assess cystic duct patency. If cholecystectomy is not eventually performed and the infectious episode has resolved, the tube may be removed over a guidewire, preferably not less than 3 weeks after placement to allow time for a mature catheter tract to form to prevent bile leakage and peritonitis. Chest X-Ray 07/16/25 16:52 Impression: PICC line placement as above Labs Labs: Laboratory Results - last 24 hr 07/17/25 07/17/25 07/17/25 11:22 15:17 22:28 WBC RBC Hgb Hct MCV MCH MCHC RDW Plt Count MPV Sodium Potassium Chloride Carbon Dioxide Anion Gap BUN Creatinine Estim Creat Clear Calc Estimated GFR Glucose POC Capillary Glucose 123 H 92 109 H Calcium Total Bilirubin AST ALT Alkaline Phosphatase Total Protein Albumin 07/18/25 07/18/25 06:03 07:59 WBC 5.7 RBC 3.38 L Hgb 10.7 L Hct 32.3 L MCV 95.6 MCH 31.7 MCHC 33.1 RDW 13.5 Plt Count 284 D MPV 9.5 Sodium 136 L Potassium 3.7 Chloride 105 Carbon Dioxide 27 Anion Gap 4 BUN 12 Creatinine 0.82 Estim Creat Clear Calc 81 Estimated GFR > 60 Glucose 89 POC Capillary Glucose 97 Calcium 8.1 L Total Bilirubin 0.9 AST 65 H ALT 60 H Alkaline Phosphatase 117 Total Protein 6.2 L Albumin 3.1 L
--- NOTE | 2025-07-18 10:31 | PCNFU ---
Nutrition Follow-Up Complete: Inadequate Oral intake as related to pneumonia evidenced by poor po intake reported. Meet estimated nutritional needs. - Goal is being met. Continue with same goal Goal: Pt current nutrition is Low fat diet. Nutrition recommendation: No new recommendations. Continue current nutrition care plan and orders. Agree with orders Last recorded weight is 95.8 kg. Bowel Motility: +BM 07/16 Labs Reviewed: Hgb 10.7, Hct 32.3, Alb 3.1, Na 136 Meds Noted: Lovenox, Miralax, protonix Skin: No skin issues Additional Notes: Intakes are 100% last 24 hours. Continue orders. Agree with current nutrition care plan. Will monitor weight, labs, skin, diet orders, meds every 3 days.
[2025-07-18] MEDS: ERTAPENEM SODIUM 1 GM in SODIUM CHLORIDE 0.9% IV 50 ML 100 ML IVPB (12:30)
[2025-07-18 13:40] LABS: Creatine Kinase < 20 U/L (55-170)
--- NOTE | 2025-07-18 13:42 | P.PNGS_ITS ---
Progress Note: A&P Assessment and Plan (1) Acute calculous cholecystitis: Code(s): K80.00 - Calculus of gallbladder with acute cholecystitis without obstruction Status: Acute Assessment and Plan: * Resolved with cholecystostomy tube. Tolerating a diet and cholecystostomy tube is functioning well. * Okay to discharge with the cholecystostomy tube from a surgical standpoint. Outpatient cholangiogram through the cholecystostomy tube scheduled and information was given to the patient today. He has a f/u scheduled with Dr. Sarabia in our office after the cholangiogram. (2) Liver abscess: Code(s): K75.0 - Abscess of liver Status: Acute Assessment and Plan: * ID recommending at least 2 weeks IV antibiotics with outpatient f/u. (3) Thrombocytopenia: Code(s): D69.6 - Thrombocytopenia, unspecified Status: Acute Assessment and Plan: * Resolved Plan Discussed patient's case and plan of care with Dr. Sarabia. Subjective Subjective Date/Time Seen: 07/18/25 13:42 Patient reports: no new complaints, tolerating a regular diet and afebrile Exam Const: General: comfortable and no acute distress GI: Inspection: non-distended GI Palp: Yes Soft to palpation, No Tenderness to palpation present (GI) and No Guarding due to palpation present (GI) Auscultation: normal bowel sounds Other: Cholecystostomy tube with minimal bilious output in bag, dressing dry and intact Objective Data Vital Signs Vital Signs: Vital Signs - 24 hr 07/17/25 16:08 07/17/25 20:09 07/17/25 22:29 Temperature 98.3 F 97.7 F Pulse Rate 67 78 60 Respiratory Rate 18 16 Blood Pressure 137/77 108/66 Pulse Oximetry 97 94 Oxygen Delivery 07/18/25 07:05 07/18/25 08:20 07/18/25 08:22 Temperature 98.0 F Pulse Rate 72 72 Respiratory Rate 16 Blood Pressure 137/85 Pulse Oximetry 95 Oxygen Delivery Room Air Intake/Output Intake/Output: Intake & Output 07/15/25 07/16/25 07/17/25 07/18/25 23:59 23:59 23:59 23:59 Intake Total 1100 1880 1520 512 Output Total 2845 3020 1075 1035 [facility] -[phone] Meds/Results Medications: Active Medications Generic Name Dose Route Start Last Admin Trade Name Freq PRN Reason Stop Dose Admin Acetaminophen 650 mg 07/06/25 22:57 07/12/25 20:18 Acetaminophen 325 Mg Tablet PO 650 mg Q4H PRN Administration Mild Pain (1-3) or Fever Al Hydrox/Mg Hydrox/Simethicone 30 ml 07/06/25 22:57 Mag Hydrox/Al Hydrox/Simeth 30 Ml Udc PO QID PRN Dyspepsia Artificial Tears 1 drop 07/11/25 09:15 07/17/25 09:10 Artificial Tears Ophth Soln 15 Ml Bottle EACH EYE 1 drop QID PRN Administration Dry Eye(s) Bisacodyl 5 mg 07/06/25 22:57 Bisacodyl 5 Mg Tablet Ec PO DAILY PRN Constipation Bisacodyl 10 mg 07/12/25 07:55 Bisacodyl 10 Mg Suppository RECTAL QAM PRN Constipation Dextrose 12.5 gm 07/06/25 23:18 Dextrose 50% 25 Gm/50 Ml Syringe IV PUSH PRN PRN Hypoglycemia Protocol Diphenhydramine HCl 25 mg 07/15/25 03:40 07/15/25 23:23 Diphenhydramine Hcl Cap 25 Mg Capsule PO 25 mg Q6H PRN Administration Itching Enoxaparin Sodium 40 mg 07/07/25 09:00 07/18/25 08:22 Enoxaparin 40 Mg/0.4 Ml Syringe SUB-Q 40 mg DAILY XENIA Administration Famotidine 20 mg 07/14/25 21:00 07/18/25 08:22 Famotidine 20 Mg Tablet PO 20 mg Q12HR XENIA Administration Fluticasone Propionate 1 spray 07/07/25 09:00 07/18/25 08:23 Fluticasone Propionate 0.05% Na Spr 16 Gm Btl (*Bkc) NASAL 1 spray Q12HR XENIA Administration Glucagon 1 mg 07/06/25 23:18 Glucagon For Inj 1 Mg Vial IM PRN PRN Hypoglycemia Protocol Glucose 15 gm 07/06/25 23:18 Glucose Oral Gel 15 Gm Of Glucse In 37.5 Gm Tube PO PRN PRN Hypoglycemia Protocol Dextrose 1,000 mls @ 100 mls/hr 07/06/25 23:18 Dextrose 5% 1,000 Ml IVPB PRN PRN Hypoglycemia Protocol Daptomycin 700 mg/ Sodium 50 mls @ 100 mls/hr 07/18/25 14:00 Chloride IVPB 07/24/25 09:29 DAILY XENIA Ertapenem 1 gm/ Sodium 50 mls @ 100 mls/hr 07/18/25 12:45 07/18/25 12:30 Chloride IVPB 07/24/25 09:29 100 mls/hr DAILY XENIA Administration Insulin Aspart 3 - 6 units 07/07/25 08:00 07/18/25 11:49 Insulin Aspart (*Bkc) 100 Units/Ml SUB-Q Not Given TIDWM XENIA Protocol Losartan Potassium 25 mg 07/15/25 09:00 07/18/25 08:21 Losartan Potassium 25 Mg Tablet PO 25 mg DAILY XENIA Administration Melatonin 5 mg 07/15/25 14:56 Melatonin 5 Mg Tablet PO HS PRN Sleep Metoprolol Tartrate 12.5 mg 07/10/25 21:00 07/18/25 08:22 Metoprolol Tartrate 12.5 Mg Tablet PO 12.5 mg Q12HR XENIA Administration Morphine Sulfate 2 mg 07/16/25 12:13 Morphine Sulfate (*Crx) 4 Mg/Ml Inj IV PUSH Q2H PRN Pain Rated 7-10 Ondansetron HCl 4 mg 07/06/25 22:57 07/09/25 13:54 Ondansetron Inj 4 Mg/2 Ml Vial IV PUSH 4 mg Q6H PRN Administration Nausea And Vomiting Perflutren Lipid Microsphere 0 ml 07/16/25 11:20 Perflutren Lipid Microspheres 1.5 Ml Vial Diluted To 10 Ml Total Volume IV PUSH 07/19/25 11:20 ONCE PRN adequate visualization Protocol Polyethylene Glycol 17 gm 07/12/25 09:00 07/18/25 08:23 Polyethylene Glycol 3350 17 Gm Powd.Pack PO Not Given QAM XENIA Sodium Chloride 10 ml 07/07/25 14:00 07/18/25 05:57 Central Line Flush IV PUSH 10 ml Q8HR XENIA Administration Sodium Chloride 20 ml 07/07/25 06:38 07/18/25 05:57 Central Line Flush IV PUSH 20 ml PRN PRN Administration after blood draws Sodium Chloride 10 ml 07/16/25 16:21 Central Line Flush IV PUSH PRN PRN with TPN bag changes Valacyclovir HCl 1,000 mg 07/15/25 06:00 07/18/25 05:57 Valacyclovir Hcl 500 Mg Tablet PO 1,000 mg Q8HR XENIA Administration Radiology Results: ITS Impressions Upper Quadrant Ultrasound 07/09/25 14:30 IMPRESSION: 1. Normal right upper quadrant ultrasound with no intra or extrahepatic biliary ductal dilation. Venous Doppler Study 07/10/25 15:15 Impression: Negative for DVT. Chest/Abdomen/Pelvis CT 07/10/25 15:44 IMPRESSION: 1. New groundglass opacities in right lung upper lobe, consistent with pneumonia. 2. Small pleural effusions. 3. Distended gallbladder with gallstone suspicious for acute cholecystitis. 4. Worsened liver mass near the gallbladder, consistent with abscess. Cholecystostomy 07/11/25 14:51 IMPRESSION: 1. Successful ultrasound-guided cholecystostomy tube placement. 2. 20 mL bile was sent for aerobic, anaerobic, and fungal cultures. 3. The catheter will be managed by Dr. Sarabia. A catheter cholangiogram may be performed not less than 48 hours after tube placement if clinically indicated to assess cystic duct patency. If cholecystectomy is not eventually performed and the infectious episode has resolved, the tube may be removed over a guidewire, preferably not less than 3 weeks after placement to allow time for a mature catheter tract to form to prevent bile leakage and peritonitis. Chest X-Ray 07/16/25 16:52 Impression: PICC line placement as above Labs Labs: Laboratory Results - last 24 hr 07/17/25 07/17/25 07/18/25 15:17 22:28 06:03 WBC 5.7 RBC 3.38 L Hgb 10.7 L Hct 32.3 L MCV 95.6 MCH 31.7 MCHC 33.1 RDW 13.5 Plt Count 284 D MPV 9.5 Sodium 136 L Potassium 3.7 Chloride 105 Carbon Dioxide 27 Anion Gap 4 BUN 12 Creatinine 0.82 Estim Creat Clear Calc 81 Estimated GFR > 60 Glucose 89 POC Capillary Glucose 92 109 H Calcium 8.1 L Total Bilirubin 0.9 AST 65 H ALT 60 H Alkaline Phosphatase 117 Total Creatine Kinase Total Protein 6.2 L Albumin 3.1 L 07/18/25 07/18/25 07/18/25 07:59 11:38 13:00 WBC RBC Hgb Hct MCV MCH MCHC RDW Plt Count MPV Sodium Potassium Chloride Carbon Dioxide Anion Gap BUN Creatinine Estim Creat Clear Calc Estimated GFR Glucose POC Capillary Glucose 97 93 Calcium Total Bilirubin AST ALT Alkaline Phosphatase Total Creatine Kinase < 20 L Total Protein Albumin
[2025-07-18] MEDS: DAPTOmycin 700 MG in SODIUM CHLORIDE 0.9% IV 50 ML 100 MG IVPB (13:55)
[2025-07-18 14:10] VITALS: BP 106/69; PULSE 73; RESP 17; TEMP 36.9; O2SAT 96
--- OUTSIDE RECORDS SUMMARY | 2025-07-19 08:22 | XMS_ITS | Encounter Summary ---
Author Organization [facility] Address [address] [place] [address] Care Team Providers Care Security Installer Name Role Phone Sourav Olguin MD Primary Care Provider [phone] Encounter Details Date Type Department Care Team (Late st Contact Info) Description 06/27/2025 [facility] [place] [facility] [address] [address] Nica Blank [place] Social History Tobacco Use [...] place to sleep or slept in a usp (including now)? No 02/10/2023 Sex and Gender [...] documented in this encounter Plan of Treatment Not on file documented as of this encounter Procedures Procedure Name Priority Date/Time Associated Diagnosis Comments COMPREHENSIVE METABOLIC PANEL Routine 02/28/2025 LIPID PANEL Routine 02/28/2025 VITAMIN D, 25 OH Routine 02/28/2025 HEMOGLOBIN, GLYCOSYLATED Routine 11/02/2024 COMPREHENSIVE METABOLIC PANEL Routine 11/02/2024 LIPID PANEL Routine 11/02/2024 documented in this encounter Results * VITAMIN D, 25 OH (02/28/2025) Pathologist [facility] VITAMIN D 25 HYDROXY S/P/B 47.8 02/28/2025 us Default History Genericprovider LABORATORY Final Result * COMPREHENSIVE METABOLIC PANEL (02/28/2025) Pathologist [facility] SODIUM S/P/B 137 GLUCOSE 109 mg/dL AST 24 BUN 13 CREATININE S/P/B 0.85 0.7 - 1.3 CALCIUM S/P/B 9.6 POTASSIUM S/P/B 4.7 CHLORIDE S/P/B 98 ALT 21 GFR ESTIMATE 90 us Default History Genericprovider LABORATORY Final Result * LIPID PANEL (02/28/2025) CHOLESTEROL 157 TRIGLYCERIDES 120 HDL 42 LDL (CALCULATED) 93 us Default History Genericprovider LABORATORY Final Result * COMPREHENSIVE METABOLIC PANEL (11/02/2024) Pathologist [facility] SODIUM S/P/B 139 GLUCOSE 111 mg/dL AST 24 BUN 12 CREATININE S/P/B 0.80 0.7 - 1.3 CALCIUM S/P/B 9.4 POTASSIUM S/P/B 4.5 CHLORIDE S/P/B 102 ALT 21 GFR ESTIMATE 92 us Default History Genericprovider LABORATORY Final Result * LIPID PANEL (11/02/2024) Pathologist [facility] CHOLESTEROL 140 TRIGLYCERIDES 106 LDL (CALCULATED) 79 us Default History Genericprovider LABORATORY Final Result * HEMOGLOBIN, GLYCOSYLATED (11/02/2024) Pathologist [facility] HGB A1C 6.4 % us Default History Genericprovider LABORATORY Final Result documented in this encounter Visit Diagnoses Not on filedocumented in this encounter Additional Health Concerns Infection Onset Date Last Indicated Resolved Time COVID-19 Rule Out 07/06/2025 07/06/2025 07/06/2025 7:34 PM CDT Respiratory Rule Out 07/06/2025 07/06/2025 025 7:34 PM CDT documented as of this encounter Care Teams Security Installer Relationship Specialty Start Date End Date Sourav Olguin MD [address] [place] [address] PCP - General INTERNAL MEDICINE 02/10/23 documented as of this encounter
--- OUTSIDE RECORDS SUMMARY | 2025-07-19 08:22 | XMS_ITS | Encounter Summary ---
Author Organization [facility] Address [address] [place] [address] Care Team Providers Care Project Administrator Name Role Phone Sourav Olguin MD Primary Care Provider [phone] Encounter Details Date Type Department Care Team (Late st Contact Info) Description 03/03/2024 Abstract [facility], [address] [address] Nica Blank [place] Social History Tobacco Use [...] place to sleep or slept in a [facility] (including now)? No 02/10/2023 Sex and Gender [...] Procedure Name Priority Date/Time Associated Diagnosis Comments HEMOGLOBIN, GLYCOSYLATED Routine 02/04/2024 COMPREHENSIVE METABOLIC PANEL Routine 02/04/2024 LIPID PANEL Routine 02/04/2024 VITAMIN D, 25 OH Routine 02/04/2024 documented in this encounter Results * VITAMIN D, 25 OH (02/04/2024) Pathologist [facility] VITAMIN D 25 HYDROXY S/P/B 47.7 02/04/2024 us Default History Genericprovider LABORATORY Final Result * COMPREHENSIVE METABOLIC PANEL (02/04/2024) Pathologist [facility] SODIUM S/P/B 141 GLUCOSE 119 mg/dL AST 27 BUN 12 CREATININE S/P/B 0.79 0.7 - 1.3 POTASSIUM S/P/B 4.7 ALT 22 GFR ESTIMATE 93 us Default History Genericprovider LABORATORY Final Result * LIPID PANEL (02/04/2024) Pathologist [facility] CHOLESTEROL 149 TRIGLYCERIDES 129 HDL 41 LDL (CALCULATED) 85 us Default History Genericprovider LABORATORY Final Result * HEMOGLOBIN, GLYCOSYLATED (02/04/2024) Pathologist [facility] HGB A1C 6.4 % us Default History Genericprovider LABORATORY Final Result documented in this encounter Visit Diagnoses Not on filedocumented in this encounter Additional Health Concerns Infection Onset Date Last Indicated Resolved Time COVID-19 Rule Out 07/06/2025 07/06/2025 07/06/2025 7:34 PM CDT Respiratory Rule Out 07/06/2025 07/06/2025 025 7:34 PM CDT documented as of this encounter Care Teams Project Administrator Relationship Specialty Start Date End Date Sourav Olguin MD [address] [place] [address] PCP - General INTERNAL MEDICINE 02/10/23 documented as of this encounter
--- OUTSIDE RECORDS SUMMARY | 2025-07-19 08:22 | XMS_ITS | Clinical Summary ---
Author Organization [facility] Address [address] [place] [address] Care Team Providers Care Estimator Lumber Name Role Phone Sourav Olguin MD Primary Care Provider [phone] Allergies Active Allergy Reactions Criticality Noted Date [...] CDT - 07/06/2025 11:52 PM CDT Emergency [facility] Emergency Room [address] [place] [address] Efren Cuevas MD Stanton, Rehab M, MD Generalized Weakness; Abdominal Pain Discharge Disposition: Transfer to Acute Care Hospital 07/06/2025 Travel 06/27/2025 Abstract [facility], [place] [address] [place] [address] Nica Blank MA from Last 3 Months [...] place to sleep or slept in a fci (including now)? No 02/10/2023 Sex and Gender [...] 07/06/2025 5:31 PM CDT Plan of Treatment Health Maintenance Due Date Last Done Comments [...] Diagnosis Comments XR CHEST PORTABLE STAT 07/06/2025 10: 33 PM CDT LACTIC ACID W REFLEX (SEPSIS) TIMED 07/06/2025 10:29 PM CDT CENTRAL LINE Routine 07/06/2025 10:20 PM CDT URINE BACTERIA CULTURE STAT 8:15 PM CDT URINALYSIS, AUTO, COMPLETE STAT 07/06/2025 [...] 6:54 PM CDT CORONAVIRUS (COVID 19) STAT 6:54 PM CDT BLOOD GAS, ARTERIAL LAB STAT 07/06/2025 6:40 PM CDT ECG 12-LEAD STAT 07/06/2025 6:32 PM CDT BLOOD GAS, VENOUS STAT 07/06/2025 6:2 7 PM CDT CULTURE, BACTERIA, BLOOD STAT 07/06/2025 6:22 PM CDT CULTURE, BACTERIA, BLOOD STAT 07/06/2025 6:21 PM CDT CRITICAL CARE Routine 07/06/2025 5:55 PM CDT MAGNESIUM Routine 07/06/2025 5:31 PM [...] 11:01 PM Narrative 07/06/2025 11:02 PM CDT [address] [place] [address] EXAMINATION: XR CHEST PORTABLE, 07/06/2025 11:02 PM [...] Procedure Note Romero Lopez MD - 07/06/2025 [facility] [id number] [place] [address]. [place] [address] EXAMINATION: XR CHEST PORTABLE, 07/06/2025 11:02 PM [...] - 2.0 MMOL/L 07/06/2025 10:58 PM CDT [facility] Comment: Critical Result(s) Called at: 22:56:52 on 07/06/2025 by: GAIL MALLORY to and read back by: INNA MEJÍA IN ED 07/06/2025 10:2 9 PM CDT Ernesto Bowen MD LABORATORY Final Result [facility] [address] [place] [address], [place] [phone] * Central Line (07/06/2025 10:20 PM CDT) [...] Procedure completion: Tolerated well, no immediate complications us Rehab Ophelia Bowen MD PROCEDURE/MINOR SURGICAL ORDE RABLES Final Result * URINE BACTERIA CULTURE (07/06/2025 8:15 PM CDT) SPEC DESCRIPTION URINE STRAIGHT CATH 07/06/2025 8:14 PM CDT [facility] SPECIAL REQUESTS NO SPECIAL REQUEST 07/06/2025 8:14 PM CDT [facility] CULTURE RESULT NO GROWTH 2 DAYS 07/09/2025 7:40 AM CDT [facility] URINE SPECIMEN OBTAINED BY SINGLE CATHETERIZATION OF URINARY BLADDER / Unknown 07/06/2025 8:15 PM CDT 07/06/2025 8:28 PM CDT Rehab Ophelia Bowen MD MICROBIOLOGY - GENERAL ORDERA BLES Final Result Performing Organization Address City/State/[facility] Co de Phone Number [facility] [address] [place] [address], [place] [phone] [facility] [address] [place] [address], [place] [phone] * (ABNORMAL) Urinalysis, Auto, Complete (07/06/2025 8:15 PM CDT) COLOR (U) DARK YELLOW 07/06/2025 8:45 PM CDT [facility] TRANSPARENCY HAZY 07/06/2025 8:45 PM CDT [facility] SPECIFIC GRAVITY (U) 1.010 1.000 - 1.030 07/06/2025 8:45 PM CDT [facility] U PH 6.0 5.0 - 9.0 07/06/2025 8:45 PM CDT [facility] LEUKOCYTES (U) NEGATIVE NEGATIVE 07/06/2025 8:45 PM CDT [facility] NITRITES NEGATIVE NEGATIVE 07/06/2025 8:45 PM CDT [facility] PROTEIN RANDOM (U) 1+(A) NEGATIVE 07/06/2025 8:45 PM CDT [facility] GLUCOSE (U) NEGATIVE NEGATIVE 07/06/2025 8:45 PM CDT [facility] KETONES MG/DL (U) TRACE(A) NEGATIVE 07/06/2025 8:45 PM CDT [facility] BILIRUBIN (U) NEGATIVE NEGATIVE 07/06/2025 8:45 PM CDT [facility] BLOOD (U) 1+(A) NEGATIVE 07/06/2025 8:45 PM CDT [facility] WBC/HPF 0-5 0 - 5 /HPF 07/06/2025 8:45 PM CDT [facility] RBC/HPF 5-10 0 - 5 /HPF 07/06/2025 8:45 PM CDT [facility] EPI/HPF RARE /HPF 07/06/2025 8:45 PM CDT [facility] BACTERIA (U) MODERATE /HPF 07/06/2025 8:45 PM CDT [facility] URINE SPECIMEN OBTAINED BY CLEAN CATCH PROCEDURE / Unknown 07/06/2025 8:15 PM CDT us Efren Cuevas MD URINE ORDERABLES Final Result [facility] [address] [facility] [place] [place] [address], [place] [phone] * Critical Care (07/06/2025 8:13 PM CDT) [...] 8:18 PM Narrative 07/06/2025 8:34 PM CDT [facility] [address] [facility] [place] [address] PROCEDURE: CT ABD+PEL W CON, CTA CHEST [...] Procedure Note Jennifer Al MD - 07/06/2025 [facility] [address] [facility] [place] [address] PROCEDURE: CT ABD+PEL W CON, CTA CHEST [...] 8:18 PM Narrative 07/06/2025 8:34 PM CDT [facility] [address] [facility] [place] [address] PROCEDURE: CT ABD+PEL W CON, CTA CHEST [...] Procedure Note Jennifer Al MD - 07/06/2025 [facility] [address] [place] [address] PROCEDURE: CT ABD+PEL W CON, CTA CHEST [...] By: Jennifer Al MD, 07/06/2025 8:18 PM us Efren [place] MD CT Final Result * CORONAVIRUS (COVID-19) MOLECULAR (07/06/2025 6:54 PM CDT) CORONAVIRUS SARS COV 2 RNA NEGATIVE NEGATIVE 07/06/2025 7:34 PM CDT [facility] Comment: NEGATIVE RESULTS DO NOT RULE [...] SPECIMEN TYPE NASAL 07/06/2025 7:04 PM CDT [facility] NASOPHARYNGEAL SWAB / Unknown 07/06/2025 6:54 PM CDT us Efren Cuevas MD MICROBIOLOGY - GENERAL ORDERABL ES Final Result [facility] [address] [place] [address], * INFLUENZA A & B (07/06/2025 6:54 PM CDT) SPECIMEN TYPE NASOPHARYNX 07/06/2025 7:34 PM CDT [facility] INFLUENZA A NEGATIVE NEGATIVE 07/06/2025 7:34 PM CDT [facility] INFLUENZA B NEGATIVE NEGATIVE 07/06/2025 7:34 PM CDT [facility] NASOPHARYNGEAL SWAB / Unknown 07/06/2025 6:54 PM CDT us Efren Cuevas MD MICROBIOLOGY - GENERAL ORDERABL ES Final Result [facility] [address] [place] [address], [place] [phone] * STREP A RAPID (07/06/2025 6:54 PM CDT) RAPID STREP TEST NEGATIVE NEGATIVE 07/06/2025 7:34 PM CDT [facility] STRUCTURE OF ANTERIOR REGION OF NECK / Unknown 07/06/2025 6:54 PM CDT us Efrne Cuevas MD MICROBIOLOGY - GENERAL ORDERABL ES Final Result Performing Organization Address City/[facility]/ZIP Co de Phone Number [facility] [address] [place] [address], [place] [phone] * RESP SYNCYTIAL VIRUS (07/06/2025 6:54 PM CDT) Pathologist [facility] SPECIMEN TYPE NASOPHARYNGEAL SWAB 07/06/2025 7:04 PM CDT [facility] RAPID RSV NEGATIVE NEGATIVE 07/06/2025 7:34 PM CDT [facility] NASOPHARYNGEAL SWAB / Unknown 07/06/2025 6:54 PM CDT us Efren Cuevas MD MICROBIOLOGY - GENERAL ORDERABL ES Final Result [facility] [address] [place] [address], [place] [phone] * (ABNORMAL) ARTERIAL BLOOD GAS (07/06/2025 6:40 PM CDT) PH ARTERIAL 7.52(H) 7.35 - 7.45 07/06/2025 6:50 PM CDT [facility] PCO2 28.0(L) 35 - 45 MMHG 07/06/2025 6:50 PM CDT [facility] PO2 60.0(L) 83 - 108 MMHG 07/06/2025 6:50 PM CDT [facility] TOTAL CO2 ARTERIAL 23.8 19.0 - 24.0 MMOL/L 07/06/2025 6:50 PM CDT [facility] BASE EXCESS 1.1 0 - 3 MMOL/L 07/06/2025 6:50 PM CDT [facility] O2 SATURATION 93(L) 94.0 - 98.0 % 07/06/2025 6:50 PM CDT [facility] BICARB ARTERIAL 22.9 21.0 - 28.0 MMOL/L 07/06/2025 6:50 PM CDT [facility] STEPHANY TEST POSITIVE STEPHANY TEST 07/06/2025 6:50 PM CDT [facility] O2 ADMIN ARTERIAL 3 LITERS PER MINUTE 07/06/2025 6:49 PM CDT [facility] DRAW SITE ARTERIAL DRAWN FROM RIGHT WRIST 07/06/2025 6:50 PM CDT [facility] 07/06/2025 6:40 PM CDT Efren Cuevas MD LABORATORY Final Result Performing Organization Address City/State/[facility] Co de Phone Number [facility] [address] [place] [address], * ECG 12 lead (07/06/2025 6:32 PM CDT) 07/06/2025 6:32 PM CDT Narrative [facility] RAD - 07/09/2025 10:31 AM CDT [facility] Test Date: 2025-07-06 Pat Name: VAN CARLTON Department: 85 Room: [place] [address] Gender: Male In File Operator: : 1950 Requested By: EFREN CUEVAS Order Number: [id number] Reading MD: Thomas Shukla Measurements Intervals [place] Rate: 123 P: 33 SC: 171 QRS: -57 QRSD: 114 T: 59 QT: 414 QTc: 593 Interpretive Statements SINUS TACHYCARDIA INCOMPLETE RIGHT BUNDLE BRANCH BLOCK [90+ ms QRS DURATION, TERMINAL R IN V1/V2, 40+ ms S IN I/aVL/V4/V5/V6] LEFT ANTERIOR FASCICULAR BLOCK [QRS AXIS <= -45, QR IN I, RS IN II] Poor R Wave Progression Non-specific ST-T wave changes Procedure Note Thomas Shukla MD - 07/09/2025 [facility] Test Date: 2025-07-06 Pat Name: VAN CARLTON Department: 85 Room: [place] [address] Gender: Male In File Operator: : 1950 Requested By: EFREN CUEVAS Order Number: [id number] Reading MD: Thomas Shukla Measurements Intervals [place] Rate: 123 P: 33 SC: 171 QRS: -57 QRSD: 114 T: 59 QT: 414 QTc: 593 Interpretive Statements SINUS TACHYCARDIA INCOMPLETE RIGHT BUNDLE BRANCH BLOCK [90+ ms QRS DURATION, TERMINAL RIN V1/V2, 40+ ms S IN I/aVL/V4/V5/V6] LEFT ANTERIOR FASCICULAR BLOCK [QRS AXIS <= -45, QR IN I, RS IN II] Poor R Wave Progression Non-specific ST-T wave changes us Efren Cuevas MD ECG ORDERABLES Final Result [facility] RAD * (ABNORMAL) Blood gas, venous (07/06/2025 6:27 PM CDT) PH VENOUS 7.48(H) 7.32 - 7.43 07/06/2025 6:39 PM CDT [facility] PCO2 VENOUS 34.0 MMHG 07/06/2025 6:39 PM CDT [facility] Comment:NO REFERENCE RANGE H BEEN ESTABLISHED PO2 VENOUS 36.0 MM HG 07/06/2025 6:39 PM T [facility] Comment:NO REFERENCE RANGE H BEEN ESTABLISHED TOTAL CO2 VENOUS 26.3(H) 22.0 - 26.0 MMOL/L 07/06/2025 6:39 PM T [facility] BASE EXCESS VENOUS 2.2 MMOL/L 07/06/2025 6:39 PM T [facility] Comment:NO REFERENCE RANGE H BEEN ESTABLISHED O2 SAT VENOUS 74 % 07/06/2025 6:39 PM T [facility] Comment:NO REFERENCE RANGE H BEEN ESTABLISHED BICARB VENOUS 25.3 22.0 - 29.0 MMOL/L 07/06/2025 6:39 PM T [facility] O2 ADMIN VENOUS 3 LITERS PER MINUTE 07/06/2025 6:39 PM T [facility] 07/06/2025 6:27 PM CDT Efren Cuevas MD LABORATORY Final Result [facility] [address] [place] [address], * (ABNORMAL) BLOOD CULTURE #2 (07/06/2025 6:22 PM CDT) Only the most recent of2 resultswithin the time period is included. SPEC DESCRIPTION BLOOD 07/06/2025 6:29 PM CDT [facility] SPECIAL REQUESTS RIGHT ANTECUBITAL 07/06/2025 6:29 PM CDT [facility] GRAM STAIN RESULT GRAM NEGATIVE RODS IN AEROBIC AND ANAEROBIC BLOOD CULTURE BOTTLES 07/08/2025 8:40 AM CDT [facility] GRAM STAIN RESULT CALLED TO AND REPEATED BACK BY MARY RODRIGUEZ MLGloria 07/07/2025 [id number] 07/08/2025 8:40 AM CDT [facility] CULTURE RESULT GROWTH OF ESCHERICHIA COLI SUSCEPTIBILITY ON PREVIOUS SPECIMEN [id number] (AA) 07/09/2025 7:16 AM CDT [facility] BLOOD SPECIMEN OBTAINED FOR BLOOD CULTURE / Unknown 07/06/2025 6:22 PM CDT 07/06/2025 6:29 PM CDT us Efren Cuevas MD MICROBIOLOGY - GENERAL ORDERABL ES Final Result Performing Organization Address [facility] de Phone Number [facility] [address] [place] [address], [place] [phone] [facility] [address] [place] [address], [place] [phone] * Critical Care (07/06/2025 5:55 PM CDT) Efren Collins MD - 07/06/2025 5:55 PM CDT Efren Cuevas MD 07/07/2025 7:22 AM Critical Care Performed by: Efren Cuevas MD Authorized by: Ernesto Bowen MD Critical care provider statement: Critical care time (minutes): 40 Comments: Sepsis us Ernesto Bowen MD PROCEDURE/MINOR SURGICAL ORDE RABLES Final Result * BETA-HYDROXYBUTYRATE (07/06/2025 5:31 PM CDT) BETA-HYDROXYBUT YRATE 0.2 0.0 - 0.6 MMOL/L 07/06/2025 6:04 PM CDT [facility] 07/06/2025 5:31 PM CDT us Efren Cuevas MD LABORATORY Final Result Performing Organization Address [facility]/ZIP Co de Phone Number [facility] [address] [place] [address], * (ABNORMAL) PRO-BRAIN NATRIURETIC PEPTIDE (07/06/2025 5:31 PM CDT) PRO-B TYPE NATRIURETIC PEPTIDE 465(H) <450 PG/ML 07/06/2025 6:23 PM CDT [facility] Comment: CUT POINTS ESTABLISHED BY INTERNATIONAL [...] FOR ACUTE CHF. 07/06/2025 5:31 PM CDT Efren Cuevas MD LABORATORY Final Result Performing Organization Address [facility] Co de Phone Number [facility] [address] [place] [address], [place] [phone] * (ABNORMAL) COMPREHENSIVE METABOLIC PANEL (07/06/2025 5:31 PM CDT) GLUCOSE 132(H) 70 - 99 MG/DL 07/06/2025 6:23 PM CDT [facility] BUN 13 7 - 18 MG/DL 07/06/2025 6:23 PM CDT [facility] CREATININE S/P/B 1.30 0.7 - 1.3 MG/DL 07/06/2025 6:23 PM CDT [facility] SODIUM S/P/B 137 136 - 145 MMOL/L 07/06/2025 6:23 PM [facility] POTASSIUM S/P/B 3.2(L) 3.5 - 5.1 MMOL/L 07/06/2025 6:23 PM [facility] CHLORIDE S/P/B 98(L) 100 - 108 MMOL/L 07/06/2025 6:23 PM [facility] CO2 24.0 21 - 32 MMOL/L 07/06/2025 6:23 PM [facility] CALCIUM S/P/B 8.9 8.5 - 10.1 MG/DL 07/06/2025 6:23 PM [facility] BILIRUBIN TOTAL S/P/B 2.2(H) 0.2 - 1.2 MG/DL 07/06/2025 6:23 PM [facility] TOTAL PROTEIN S/P/B 7.4 6.4 - 8.2 G/DL 07/06/2025 6:23 PM [facility] ALBUMIN S/P/B 3.7 3.4 - 5.0 G/DL 07/06/2025 6:23 PM [facility] AST 49(H) 15 - 37 U/L 07/06/2025 6:23 PM [facility] ALT 40 16 - 60 U/L 07/06/2025 6:23 PM [facility] ALKALINE PHOSPHATASE S/P/B 84 50 - 136 U/L 07/06/2025 6:23 PM [facility] ANION GAP 15.0 5 - 15 MMOL/L 07/06/2025 6:23 PM [facility] BUN CREATININE RATIO 10.0 6 - 26 07/06/2025 6:23 PM [facility] A/G RATIO 1.0 1.0 - 2.0 RATIO 07/06/2025 6:23 PM CDT [facility] GFR ESTIMATE 57(L) >90 ML/MIN/1.7 3 M2 07/06/2025 6:23 PM CDT [facility] Comment: NOTE: eGFR is not calculated for patients <18 years of age. This is an estimated GFR calculation using the new CKD EPI creatinine equation without race and so does not require a correction factor for race. This estimated GFR should not be used for calculating drug doses. 07/06/2025 5:31 PM CDT us Efren Cuevas MD LABORATORY Final Result Performing Organization Address [facility]/ZIP Co de Phone Number [facility] [address] [place] [address], [place] [phone] * (ABNORMAL) LACTIC ACID - SINGLE (07/06/2025 5:31 PM CDT) LACTIC ACID VENOUS 4.9(HH) 0.4 - 2.0 MMOL/L 07/06/2025 6:25 PM CDT [facility] Comment: Critical Result(s) Called at: 18:23:37 on 07/06/2025 by: JOSE RODRIGUEZ to and read back by: TYRA CHAHAL RN AN ORDER FOR A REPEAT LACTIC ACID TEST IS REQUIRED WITHIN 6 HOURS OF DIAGNOSIS ON A PATIENT WITH SEVERE SEPSIS. 07/06/2025 5:31 PM CDT us Efren Cuevas MD LABORATORY Final Result Performing Organization Address City/[facility]/ZIP Co de Phone Number [facility] [address] [place] [address], [place] [phone] * (ABNORMAL) CBC W/DIFF AUTOMATED (07/06/2025 5:31 PM CDT) WBC 1.21(LL) 4.4 - 11.0 x10'3/uL 07/06/2025 6:08 PM CDT [facility] Comment: ALERT VALUE CALLED TO AND READ BACK BY: TYRA CHAHAL RN ON AT 1808. JDJ RBC 4.35(L) 4.50 - 5.90 x10'6/uL 07/06/2025 6:08 PM CDT [facility] HGB 14.1 14.0 - 17.5 G/DL 07/06/2025 6:08 PM T [facility] HCT 40.4(L) 41.5 - 50.4 % 07/06/2025 6:08 PM T [facility] MCV 92.9 80.0 - 96.0 FL 07/06/2025 6:08 PM T [facility] MCH 32.4(H) 26.5 - 31.4 PG 07/06/2025 6:08 PM T [facility] MCHC 34.9(H) 31.9 - 34.8 G/DL 07/06/2025 6:08 PM T [facility] RDW 12.9 12.3 - 14.3 % 07/06/2025 6:08 PM T [facility] PLT 111(L) 151 - 353 x10'3/uL 07/06/2025 6:08 PM T [facility] MPV 9.4(L) 9.7 - 11.9 FL 07/06/2025 6:08 PM T [facility] SEG NEUTROPHILS 90(H) 42 - 72 % 6:37 PM CDT [facility] BANDS 2 % 07/06/2025 6:37 PM T [facility] LYMPHOCYTES 7(L) 15.8 - 45.0 % 07/06/2025 6:37 PM T [facility] MONOCYTES 1(L) 5.7 - 12.5 % 07/06/2025 6:37 PM CDT [facility] ABS. NEUTROPHILS 1.11(L) 1.40 - 6.00 x10'3/uL 07/06/2025 6:37 PM CDT [facility] ABS. LYMPHOCYTES 0.08(L) 0.80 - 4.70 x10'3/uL 07/06/2025 6:37 PM CDT [facility] PLT MORPH. NORMAL 07/06/2025 6:37 PM CDT [facility] RBC MORPHOLOGY NORMAL 07/06/2025 6:37 PM CDT [facility] WBC MORPHOLOGY NORMAL 07/06/2025 6:37 PM CDT [facility] 07/06/2025 5:31 PM CDT us Efren Cuevas MD LABORATORY Final Result Performing Organization Address City/[facility]/ZIP Co de Phone Number [facility] [address] [place] [address], [place] [phone] * TROPONIN, QUANT (07/06/2025 5:31 PM CDT) TROPONIN I HIGH SENSITIVITY 30 0 - 75 ng/L 07/06/2025 6:18 PM CDT [facility] Comment: HIGH DOSES OF BIOTIN, TROPONIN-SPECIFIC AUTOANTIBODIES, AND ANTIBODY THERAPY CONTAINING HAMA MAY INTERFERE WITH THIS TEST RESULT. CORRELATION TO CLINICAL HISTORY AND PRESENTATION RECOMMENDED. 07/06/2025 5:31 PM CDT us Efren Cuevas MD LABORATORY Final Result [facility] [address] [place] [address], [place] [phone] * (ABNORMAL) MAGNESIUM (07/06/2025 5:31 PM CDT) MAGNESIUM 1.7(L) 1.8 - 2.4 MG/DL 07/06/2025 7:17 PM CDT [facility] 07/06/2025 5:31 PM CDT us Efren Cuevas MD LABORATORY Final Result [facility] [address] [place] [address], [place] [phone] * LIPASE (07/06/2025 5:31 PM CDT) LIPASE 17 16 - 77 UNITS/L 07/06/2025 6:23 PM CDT [facility] 07/06/2025 5:31 PM CDT us Efren Cuevas MD LABORATORY Final Result Performing Organization Address [facility] Co de Phone Number [facility] [address] [place] [address], [place] [phone] * CK (CPK) (07/06/2025 5:31 PM CDT) CPK 135 39 - 308 U/L 07/06/2025 6:23 PM CDT [facility] 07/06/2025 5:31 PM CDT us Efren Cuevas MD LABORATORY Final Result Performing Organization Address City/[facility]/ZIP Co de Phone Number [facility] [address] [place] [address], [place] [phone] from Last 3 Months Insurance MEDICARE Member Subscriber Plan / Payer (Ef fective 2023-Present) Name:Van Carlton Relation to Subscriber:Self Name:Van Carlton Payer ID:Not on file Group ID:Not on file Type:[employer] Address: [address] [address] [facility] Member Subscriber Plan / Payer (Ef fective 2009-Present) Name:Van Carlton Relation to Subscriber:Self Name:Van Carlton Payer ID:Not on file Group ID:Not on file Type:[employer] Address: [address] [place] [id number] Advance Directives * Full Code (Latest Code Status on File) Date Activated Date Inactivated Comments 02/10/2023 3:30 PM 02/11/2023 1:39 PM Care Teams [employer] Relationship Specialty Start Date End Date Sourav Olguin MD [address] [place] [address] PCP - General INTERNAL MEDICINE 02/10/23
== END 2025-07-18 15:27 | disposition home health service (06) | DRG 871 ==
LOC: ANHICU 07-09 15:39 → ANHIMU 07-17 11:25 → ANH2MED 07-18 09:05 → ANHIMU 07-19 08:17 → ANHICU 07-19 08:17
PROVIDERS: Internal Medicine; Internal Medicine Interventional Cardiology; Admitting Provider Internal Medicine; PCP Emergency Medicine; Visit Provider General Practice
DX: A41.51 Sepsis due to Escherichia coli [E. coli] (principal); I50.21 Acute systolic (congestive) heart failure; J18.9 Pneumonia, unspecified organism; K75.0 Abscess of liver; R65.21 Severe sepsis with septic shock; K80.00 Calculus of gallbladder with acute cholecystitis without obstruction; N17.9 Acute kidney failure, unspecified; I42.9 Cardiomyopathy, unspecified; R23.8 Other skin changes; I11.0 Hypertensive heart disease with heart failure; D69.6 Thrombocytopenia, unspecified; E78.2 Mixed hyperlipidemia; E11.9 Type 2 diabetes mellitus without complications; I48.0 Paroxysmal atrial fibrillation; Z85.46 Personal history of malignant neoplasm of prostate; E87.6 Hypokalemia; R09.02 Hypoxemia; R19.7 Diarrhea, unspecified; Z87.891 Personal history of nicotine dependence; Z92.3 Personal history of irradiation; Z79.84 Long term (current) use of oral hypoglycemic drugs; Z20.822 Contact with and (suspected) exposure to COVID-19; Z79.82 Long term (current) use of aspirin
CPT/HCPCS: 36415; 36430; 36569; 47490; 71045; 71250; 74176; 76705; 80048; 80053; 80074; 80202; 81001; 82550; 82565; 82728; 82948; 83540; 83550; 83605; 83735; 83880; 84100; 84443; 84484; 85025; 85027; 85055; 85610; 85730; 86140; 86900; 86901; 87040; 87045; 87046; 87070; 87075; 87186; 87205; 87427; 87493; 87641; 93005; 93306; 93308; 93970; 97110; 97162; 97166; 97530; 97535; A9270; C1729; C1751; J0295; J0456; J0613; J0616; J0692; J0878; J1335; J1650; J1720; J1741; J1836; J1938; J2003; J2270; J2405; J2470; J3373; J3475; J3480; J7030; J7050; J7120; P9034; P9041; P9047

== ENCOUNTER 2025-08-01 13:08 | Outpatient (CLI) | payer MEDICARE, OTHER, SELFPAY ==
--- NOTE | ~2025-08-01 | XR_ITS ---
EXAMINATION: XR catheter cholangiogram DATE: 08/01/2025 13:53 INDICATION: Cholelithiasis with acute cholecystitis now post percutaneous cholecystostomy tube placement TECHNIQUE: 5 fluoroscopic images of the right upper quadrant were obtained during injection of 10 mL Omnipaque 240 water-soluble contrast into the patient's percutaneous cholecystostomy tube. Contrast was aspirated from the gallbladder and the tube was flushed and reaspirated with 10 mL sterile saline at the conclusion of the procedure. The cholecystostomy tube was then reattached to gravity drainage. The amount of fluoroscopy time used during this procedure was 0.1 minutes. Total DAP was 2.05 Gycm^2. COMPARISON: None. FINDINGS: Distal loop of the percutaneous cholecystostomy tube is positioned within the fundus of the gallbladder. Contrast injection demonstrates filling of the gallbladder with contrast extending along the patent cystic duct and normal caliber common bile duct, draining promptly into the duodenum. No evident s trictures or other mucosal irregularities or filling defects to suggest choledocholithiasis. IMPRESSION: 1. No filling defects or strictures within the cystic or common bile ducts. Reviewed, dictated and finalized at location A.
== END 2025-08-01 13:09 | disposition home or self-care (01) ==
PROVIDERS: PCP Emergency Medicine; Visit Provider Surgery
DX: K80.00 Calculus of gallbladder with acute cholecystitis without obstruction (principal)
CPT/HCPCS: 47531

== ENCOUNTER 2025-08-16 09:24 | Outpatient (CLI) | payer MEDICARE, OTHER, SELFPAY ==
[2025-08-16 09:58] LABS: INR 1.1; Partial Thromboplastin Time 26.5 Seconds (22.3-36.8); Prothrombin Time 14.2 Seconds (11.1-14.7)
[2025-08-16 10:17] LABS: Alanine Aminotransferase 29 U/L (6-50); Albumin Level 4.2 g/dL (3.5-5.1); Alkaline Phosphatase 65 U/L (38-126); Amylase 59 U/L (30-110); Aspartate Amino Transferase 35 U/L (17-59); Bilirubin,Total 0.6 mg/dL (0.2-1.3); Lipase 63 U/L (23-300); Total Protein 7.2 g/dL (6.3-8.2)
== END 2025-08-16 09:25 | disposition home or self-care (01) ==
PROVIDERS: Anesthesiology; PCP Emergency Medicine; Visit Provider Surgery
DX: Z01.818 Encounter for other preprocedural examination (principal); K80.00 Calculus of gallbladder with acute cholecystitis without obstruction; K75.0 Abscess of liver; R79.89 Other specified abnormal findings of blood chemistry; E87.20 Acidosis, unspecified
CPT/HCPCS: 36415; 80076; 82150; 83690; 85610; 85730; 86850; 86900; 86901

== ENCOUNTER 2025-08-22 02:02 | Day surgery (SDC) | payer MEDICARE, OTHER, SELFPAY ==
[2025-08-15 13:01] VITALS: BMI 29.5
--- NOTE | 2025-08-15 13:16 | PC.NURSE ---
[facility] has started construction of its new state of the art ER which will open Spring 2026. With this, we anticipate parking may be a challenge for some our surgical patients and families. Parking spaces are limited but are available for all Surgical, obstetrics, and ER patients sharing this lot. If you arrive and find you are having a hard time finding a parking space, please note that we understand the challenges, please drive around the hospital and park near Hospital Entrance 1. When you enter this entrance, you can ask a volunteer to direct or take you back to the surgical waiting area to check in. We appreciate everyone?s understanding of these expected challenges while we build for your future. Report to the Outpatient Waiting Room, entrance under the green pavilion located off [address], at time __06:00am on date __08/22/25 . Planned Procedure Time: _07:30am .? Time changes happen often and if your time is changed the preop area will call you the afternoon before. - You and your visitor will be asked to self-screen and do not enter if you have any COVID symptoms. Please call surgeon if you need to reschedule. - A mask is optional within the hospital at this time. Patients may have clear liquids (water, carbonated beverages, clear teas, apple juice) until 3 hours prior to surgery with a maximum of 20 ounces. - No food from midnight until time of surgery and no smoking, or chewing tobacco (or any form of nicotine). No chewing gum, candy or mints.(04:30am) Take only the following medications with a SIP of water on the morning of surgery: ____Metoprolol and Antiobiotics DO NOT STOP ANY OF YOUR OTHER PRESCRIPTION MEDICATIONS PRIOR TO SURGERY EXCEPT THE FOLLOWING Hold all vitamins and supplements for 3 days per anesthesiologist. Date of last 08/18/25. Medications to discontinue per physician NONE Date to take last dose NONE Please no make-up, nail latvian, hairspray, perfume, deodorant, or body powder the day of surgery.? No jewelry (including any body piercings) or valuables the day of surgery, leave them at home.? Please take a shower or bath the night before, or the morning of, surgery with an antibacterial soap. GOLD DIAL ? Wear comfortable, loose fitting clothing.? - Jewelry must be removed prior to entering the operating room.? Rings and piercings that are not removed may be cut off. - The hospital will not accept responsibility for valuables.? - Please leave all valuables, including medications, at home the day of surgery. If you are going home after surgery, a licensed driver/merchandiser must drive you home.? - NO public transportation without another adult if you receive anesthesia. - We recommend that an adult stay with you for 24 hours following discharge. - We also recommend that you do not drive, make important decision, drink alcoholic beverages, or take any drugs that were not prescribed by your health care provider for at least 24 hours after your discharge time. Follow any additional instructions given to you from your surgeon. Telephone instructions given to ___Patient and asked if any additional questions and then verbalized understanding. Patient advised to call surgeon office or pre surgery nurse liaison [phone] if any additional questions.
[2025-08-22] VITALS (8 sets, daily range): BP systolic 130–162; BP diastolic 53–98; PULSE 50–69; RESP 12–18; TEMP 36.1–36.5; O2SAT 98–100; BMI 28.8
[2025-08-22] MEDS: LACTATED RINGERS 1,000 ML 30 ML IV CONT ×2 (06:40→09:16)
[2025-08-22] MEDS: INDOCYANINE GREEN 25 MG VIAL WITH DILUENT 3.75 MG IV PUSH (06:55)
--- NOTE | 2025-08-22 06:55 | WPDANESEPPF ---
Anes - Initial Pre Proc Eval Procedure: Operation Date: 08/22/25 07:30 Proposed Procedures p Laparoscopic Cholecystectomy, Davinci Assisted - Miguel Sarabia DO Date/Time: 08/22/25 06:55 Surgeon: Miguel Sarabia DO Pre Op Diagnosis: acute cholecystitis Patient Data Age: 75 Gender: M Height: 1.8 m Weight: 96 kg Allergies Allergy/AdvReac Type Severity Reaction Status Date / Time No Known Allergies Allergy Mild Verified 08/15/25 12:56 Home Medications ?Medication ?Instructions ?Recorded ?Confirmed ?Type aspirin 81 mg tablet,delayed 81 mg PO DAILY 11/19/20 08/15/25 History release cholecalciferol (vitamin D3) 25 1,000 unit PO DAILY 11/19/20 08/15/25 History mcg (1,000 unit) tablet (Vitamin D3) cranberry 500 mg capsule 500 mg PO DAILY 11/19/20 08/15/25 History multivitamin 1 tablet PO DAILY 11/19/20 08/15/25 History sildenafil 100 mg tablet (Viagra) 100 mg PO DAILY PRN sexual 02/15/24 08/15/25 Rx activity #30 tabs metformin 500 mg tablet See Rx Instructions .Route 12/25/24 08/15/25 Rx .COMPLEX #90 tabs simvastatin 40 mg tablet See Rx Instructions .Route 03/27/25 08/15/25 Rx .COMPLEX #90 tabs losartan 25 mg tablet 25 mg PO DAILY #90 tabs 08/08/25 08/15/25 Rx metoprolol tartrate 25 mg tablet 12.5 mg (1/2 x 25 mg) PO BID #90 08/08/25 08/15/25 Rx tabs amoxicillin 500 mg tablet 500 mg PO BID 08/14/25 08/15/25 History fluticasone propionate 50 1 spray intranasal .AM 08/15/25 08/15/25 History mcg/actuation nasal spray,suspension (Flonase Allergy Relief) Laboratory Tests 08/22/25 06:47 POC Capillary Glucose 93 mg/dl (65-105) Patient hx anesthesia problems: none Family hx anesthesia problems: none Results Review: All pre-operative results and documents have been reviewed as part of the pre-operative evaluation. [facility], [facility] Past Medical History Medical History Allergic rhinitis Body mass index [BMI] 33.0-33.9, adult (11/24/16) Cough due to CANDI inhibitor Erectile dysfunction due to arterial insufficiency Impaired glucose tolerance (oral) Prostate CA (~2019) HTN (hypertension) HLD (hyperlipidemia) Vitamin D deficiency disease Hyperglycemia Surgical History Surgical History History of tonsillectomy and adenoidectomy History of cardiac ablation for atrial fibrillation (~2023) Family History Family History Father Acute myocardial infarction, Onset Age: 83 Hypertension Asthma Sibling Hypertension Other Family history of cardiovascular disease Social History Social History Social History: Code status: Full code Surrogate decision maker: Smoking packs per day: 1.0 Smoking cigarettes per day: 20.0 Years smoked: 28 Smoking pack-years: 28.00 Smoking status: Former smoker Tobacco type: cigarettes Smoking end date: 04/24/88 Additional smoking assessment comments: 1 to 1.5 packs per day from [age]yo Alcohol intake: former Alcohol use details: Drinks 6 pack per day but quit at age 38 Substance use: never Substance use type: does not use Do You Feel Safe in your Home?: Yes Lack of Transportation: No Lack of Food: Never True Current Housing: I Have Housing Concerned About Future Housing: No Difficulty Paying Gas/Electric Bills: No Difficulty Paying for Meds: No Currently Unemployed: No Education: High School Diploma/GED Difficulty w/ Childcare or Family Care: No Living arrangements: with family Additional living arrangements comments: Lives with his of 49 years. They have 5 children. Occupation/Education: retired Additional occupation/education comments: He is retired from [employer] Spiritual care concerns: No Anes - Eval Final PreProcedure Day of Procedure 08/22/25 06:55 Patient weight: overweight Heart: regular rate and rhythm Lungs: decreased breath sounds Airway: Mallampati scale class II Neurological: alert and oriented Last oral intake: >/= 8 hours ASA classification: III Emergent: no Anesthetic plan: proceed Anesthesia type and monitoring: general ETT and standard monitoring Results Review: All pre-operative results and documents have been reviewed as part of the pre-operative evaluation. Informed Consent: The patient's anesthetic plan and its attendant risks and benefits were discussed with the patient/family/POA. Questions were solicited and answers provided to the satisfaction of the patient/family/POA.
[2025-08-22] MEDS: ACETAMINOPHEN 500 MG TABLET 1000 MG PO (06:59)
[2025-08-22] MEDS: KETOROLAC 15 MG/ML VIAL (*BKC) IV PUSH (06:59)
--- NOTE | 2025-08-22 07:09 | WPDHPUPDATE1 ---
History and Physical Update Update Date/Time: 08/22/25 07:09 History and Physical has been reviewed, including an updated exam of the patient. There are NO changes in the patient's condition. Risks, benefits, and alternatives have been discussed and questions answered. Patient agrees to proceed with procedure.
[2025-08-22] MEDS: ceFAZolin 2 GM in SODIUM CHLORIDE 0.9% IV 50 ML 100 ML IVPB (07:33)
[2025-08-22] MEDS: BUPIVACAINE/EPINEPHRINE 0.5% 50 ML VIAL 30 ML INFILTRATE (07:55)
--- NOTE | 2025-08-22 08:40 | S_PTH ---
PATIENT: Van Young LOC: [facility] U#:[id number] AGE/SX: 75/M ROOM: RE08/22/[address]: Miguel Sarabia DO : 1950 BED: DIS: 08/22/2025 SPEC #: [id number] RECD: 08/22/25 10:09 STATUS: ARIADNA REQ #: [id number] LEE: 08/22/25 08:[address]: Miguel Sarabia DEPT: [facility] Surgical RECD BY: Noy Kennedy ENTERED: 08/22/25 10:10 SP TYPE: Surgical OTHR DR: Sourav Olguin MD Tissues: A - Gallbladder Procedures: Hematoxylin and Eosin Stain Gross and Microscopic Level 3
--- NOTE | 2025-08-22 08:53 | P.OP_ITS ---
Procedure Note - Detailed Date of Procedure 08/22/25 Pre-op Diagnosis acute cholecystitis Post-op Diagnosis Same Procedure Performed 1. Laparoscopic cholecystectomy with cholangiography, da Anisa assisted 2. Interpretation of cholangiography Surgeon Miguel Sarabia DO Art Coordinator Leandro Severino DO Anesthesia General and Local (0.5% bupivacaine) Indications This is a 75-year-old man who presented with a prior history of acute cholecystitis. He had been hospitalized with sepsis and surgery was delayed at the time due to his overall medical condition. A percutaneous drain had been placed to decompress the gallbladder. He was doing well postoperatively and a cholangiogram through the cholecystostomy tube showed no further cystic duct occlusion and no filling defects within the common bile duct. The cholecystostomy tube was removed in the office. Discussions were made with the patient about further treatment options and decision was made to proceed with robotic assisted laparoscopic cholecystectomy with cholangiography. Findings 1.5 mL of indocyanine green was infused intravenously in preop. Near infrared fluorescence imaging was utilized intraoperatively to identify the cystic duct and other biliary structures. This allowed for safe dissection around the cystic duct and for ruling out any other aberrant anatomy. The gallbladder had some chronic inflammatory signs and some pericholecystic adhesions. The posterior wall of the gallbladder was very thin and friable and there did appear to be signs of the prior abscess between the gallbladder wall in the liver bed. There was a moderate amount of bleeding along the liver bed because of how thin and friable the gallbladder wall was. I was able to control this with electrocautery and then chose to spray Surgiflo at the end to help with hemostasis. Gallbladder was completely removed and sent to lab for pathology. The cystic duct appeared normal in size and no other significant abnormalities were seen. Description of Procedure Procedure as well as risks, benefits, and alternatives were discussed with the patient. Written consent was obtained and placed in chart prior to procedure. 1.5 mL of indocyanine green was given intravenously in preop. Patient was brought back to surgical suite. He was placed supine on operating table. Time- out was done to confirm patient and procedure. He was then intubated by the anesthesia department. His abdomen was then prepped and draped in sterile fashion using chlorhexidine prep. 0.5% bupivacaine was infiltrated locally at the site of each port placement. An 8 mm incision was made in the left upper quadrant and a 5 mm Optiview trocar was then advanced through the abdominal layers under direct visualization. Once inside the abdominal cavity, carbon dioxide insufflation was used to create a pneumoperitoneum. The camera was inserted and the abdomen was inspected. No mediated abnormalities were noted. The patient was placed in 12? reverse Trendelenburg position and rotated 6? to the left. Two 8 mm incisions were made in the right lateral abdomen and 2 8 mm trocars were inserted under direct visualization. An 8 mm incision was made in the supraumbilical region and an 8 mm trocar was inserted under direct visualization. The 5 mm Optiview trocar was then removed and another 8 mm trocar was inserted in its place. The robotic arms were then brought up to the patient's bedside and secured to each port. The camera and instruments were inserted. I then moved over to the robotic consult to take control of the camera and instruments. The gallbladder was grasped at the fundus and retracted cephalad. The infundibulum of the gallbladder was then grasped and retracted laterally. Hook electrocautery was then used to carefully dissect around the neck of the gallbladder. The cystic duct was identified and a window was created around it using hook electrocautery. The cystic artery was also identified and a window was created behind it using hook electrocautery. Critical view of safety was identified visualizing the cystic duct running directly into the neck of the gallbladder and the cystic artery running directly into the wall the gallbladder. The camera view was switched to firefly mode and the indocyanine green within the gallbladder and cystic duct was clearly visualized. No other structures were noted running into this region and there did not appear to be any obstruction of the cystic duct impeding flow of bile into the gallbladder. The camera mode was switched back to regular mode. Hemo lock clips were placed on both the cystic duct and cystic artery. Two clips were placed proximally and 1 distally. Hook electrocautery was then used to transect in between the clips. Once safely away from the hailee hepatus, hook electrocautery was used to dissect the gallbladder off of the liver bed. Once the gallbladder was completely dissected free it was then placed in an Endo- Catch bag and removed through the left upper quadrant port site. The liver bed was carefully inspected. There was some mild bleeding along the liver bed that was controlled with hook electrocautery. I then sprayed Surgiflo along the gal lbladder fossa. Hemostasis appeared adequate under clips appeared secure. No other intra-abdominal abnormalities were noted. The remaining instruments and camera were removed and the robotic arms were disengaged from the ports. Pneumoperitoneum was released and the ports were removed. The skin of each of the incisions was then approximated using 4-0 Monocryl subcuticular suture. Exofin glue was then applied on top. Patient was then awakened from anesthesia, extubated, and transferred to recovery. Estimated Blood Loss 50 Pathology Yes (Gallbladder) Complications No immediate complications Condition Stable Disposition Same day [facility] Billing Surgery - Charge Forward: Surgery Billing
[2025-08-22] MEDS: oxyCODONE HCL (*CRX) 5 MG TAB IR PO (10:12)
== END 2025-08-22 11:17 | disposition home or self-care (01) ==
PROVIDERS: PCP Emergency Medicine; Visit Provider Surgery
PROC: 0FT44ZZ Resection of Gallbladder, Percutaneous Endoscopic Approach (ICD-10-PCS; CPT 47562; principal; 2025-08-22 07:30)
DX: K80.10 Calculus of gallbladder with chronic cholecystitis without obstruction (principal); K66.0 Peritoneal adhesions (postprocedural) (postinfection); K75.0 Abscess of liver; E78.5 Hyperlipidemia, unspecified; I10 Essential (primary) hypertension; E11.9 Type 2 diabetes mellitus without complications; E55.9 Vitamin D deficiency, unspecified; N52.9 Male erectile dysfunction, unspecified; Z79.82 Long term (current) use of aspirin; Z79.84 Long term (current) use of oral hypoglycemic drugs; Z98.890 Other specified postprocedural states; Z87.891 Personal history of nicotine dependence; Z85.46 Personal history of malignant neoplasm of prostate; Z86.79 Personal history of other diseases of the circulatory system; Z82.49 Family history of ischemic heart disease and other diseases of the circulatory system
CPT/HCPCS: 47563; 74300; S2900; 82948; 88304; J0690; A9270; J1100; J1885; J2003; J2250; J2405; J2704; J3010; J7030; J7120